=== PATIENT | female | born 1935 | race Caucasian/White ===

== ENCOUNTER → 2016-07-07 | Outpatient (REF) | payer MEDICARE ==
[~2016-07-07] MED LIST: ALEV220T26 PO; BACT800T5 PO; ELIQ2.5T PO; LEVO500T32 PO; METO25TAB PO; PANT40TA2 PO; PRIN5TAB PO
[2016-07-07 17:22] LABS: CREATININE FOR GFR 1.3 MG/DL (0.55-1.02); GLOMERULAR FILTRATION RATE 41.9 (>32); POTASSIUM SERUM 4.3 MEQ/L (3.5-5.1); URIC ACID 7.6 MG/DL (2.6-6.0)
== END ==
LOC: M LABDRAW1 15:40
PROVIDERS: ATTEND Family Medicine
DX: M25.562 Pain in left knee (principal)

== ENCOUNTER 2016-07-22 00:14 | Emergency (ER) | payer MEDICARE ==
[~2016-07-22] VITALS: Ht 157.5 cm; Wt 73.9 kg
[2016-07-22] MEDS ORDERED: AMLO2.5T PO (00:28)
[2016-07-22] MEDS ORDERED: METO50TA2 PO (00:28)
[2016-07-22] MEDS ORDERED: IRBE150T14 PO (00:28)
[2016-07-22] MEDS ORDERED: ALLO10TA PO (00:28)
--- NOTE | 2016-07-22 05:10 | REPUSA ---
CLINICAL HISTORY: Edema. COMMENTS: Real time sonography with duplex doppler of the left lower extremity was performed with attention to the major deep venous structures. Evaluation reveals the left common femoral, superficial femoral and popliteal veins to be completely compressible without intraluminal thrombus. There is normal spontaneous phasic flow and augmentation. The greater saphenous/common femoral vein junction is patent. IMPRESSION: No evidence of DVT in left lower extremity.. Thank you for your kind referral of this patient.
[2016-07-22 05:44] VITALS: BP 140/63
--- NOTE | 2016-07-22 07:58 | REP ---
Left knee two views: There are no comparisons. 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 There is an effusion in the suprapatellar pouch. There are calcifications in this effusion, likely calcified synovial chondromas. There is no fracture. No unusual calcifications otherwise. Impression: Advanced tricompartment osteoarthritis. Small joint effusion. Calcified synovial chondromas. Signed by Miky Ibarra MD 07/22/2016 07:50 A
== END 2016-07-22 05:46 | disposition home or self-care (01) ==
LOC: M ED 01:23
DX: M25.462 Effusion, left knee (principal); M17.12 Unilateral primary osteoarthritis, left knee; D16.9 Benign neoplasm of bone and articular cartilage, unspecified; I48.91 Unspecified atrial fibrillation; I10 Essential (primary) hypertension; M10.9 Gout, unspecified; Z88.5 Allergy status to narcotic agent; Z79.899 Other long term (current) drug therapy

== ENCOUNTER → 2016-08-19 | Outpatient (REF) | payer MEDICARE ==
[~2016-08-19] MED LIST changes: +ALLO10TA PO; +AMLO2.5T PO; +IRBE150T14 PO; +METO50TA2 PO
[2016-08-19 16:10] LABS: BASO % 0.2 % (0.0-1.0); EOS % 0.7 % (0.0-3.0); LARGE UNSTAINED CELL # 0.1 K/mm3 (0.0-0.4); LARGE UNSTAINED CELL % 1.3 % (0.0-4.0); LYMPH # 0.5 K/mm3 (1.5-4.5); LYMPH % 12.2 % (24.0-44.0); MEAN CORPUSCULAR HEMOGLOBIN 31.6 pg (27.0-33.0); MEAN CORPUSCULAR HGB CONC 33.9 g/dl (32.0-36.5); MEAN CORPUSCULAR VOLUME 93.4 fl (80.0-96.0); MONO # 0.4 K/mm3 (0.0-0.8); MONO % 11.3 % (0.0-5.0); NEUTROPHILS # 2.9 K/mm3 (1.8-7.7); NEUTROPHILS % 74.4 % (36.0-66.0); PLATELET COUNT, AUTOMATED 128 k/mm3 (150-450); RED CELL DISTRIBUTION WIDTH 13.9 % (11.5-14.5); WHITE BLOOD COUNT 3.8 K/mm3 (4.0-10.0)
[2016-08-19 16:36] LABS: ALBUMIN 3.4 GM/DL (3.2-5.2); ALBUMIN/GLOBULIN RATIO 1.06 (1.00-1.93); BILIRUBIN,TOTAL 0.5 MG/DL (0.2-1.0); CALCIUM LEVEL 8.9 MG/DL (8.8-10.2); CREATININE FOR GFR 1.51 MG/DL (0.55-1.02); GLOMERULAR FILTRATION RATE 35.2 (>32); POTASSIUM SERUM 4.3 MEQ/L (3.5-5.1); TOTAL PROTEIN 6.6 GM/DL (6.4-8.2)
== END ==
LOC: M LABDRAW1 15:40
PROVIDERS: ATTEND Family Medicine
DX: R10.84 Generalized abdominal pain (principal)

== ENCOUNTER → 2016-10-13 | Outpatient (REF) | payer MEDICARE ==
[~2016-10-13] MED LIST changes: +IRBE150T12 PO; +LEVO500T3 PO; -LEVO500T32 PO; -METO50TA2 PO; +METO50TA7 PO
[2016-10-13 18:10] LABS: ALBUMIN 3.6 GM/DL (3.2-5.2); ALBUMIN/GLOBULIN RATIO 1.33 (1.00-1.93); BILIRUBIN,TOTAL 0.6 MG/DL (0.2-1.0); CALCIUM LEVEL 8.8 MG/DL (8.8-10.2); CREATININE FOR GFR 0.99 MG/DL (0.55-1.02); GLOMERULAR FILTRATION RATE 57.3 (>32); POTASSIUM SERUM 4.2 MEQ/L (3.5-5.1); TOTAL PROTEIN 6.3 GM/DL (6.4-8.2)
[2016-10-13 18:13] LABS: INR 1.13
[2016-10-13 19:41] LABS: BASO % 0.3 % (0.0-1.0); EOS % 0.9 % (0.0-3.0); LARGE UNSTAINED CELL # 0.1 K/mm3 (0.0-0.4); LARGE UNSTAINED CELL % 2.3 % (0.0-4.0); LYMPH # 0.6 K/mm3 (1.5-4.5); MEAN CORPUSCULAR HEMOGLOBIN 31.3 pg (27.0-33.0); MEAN CORPUSCULAR HGB CONC 33.7 g/dl (32.0-36.5); MEAN CORPUSCULAR VOLUME 92.8 fl (80.0-96.0); MONO # 0.4 K/mm3 (0.0-0.8); MONO % 9.9 % (0.0-5.0); NEUTROPHILS # 2.8 K/mm3 (1.8-7.7); NEUTROPHILS % 72.7 % (36.0-66.0); PLATELET COUNT, AUTOMATED 119 k/mm3 (150-450); RED CELL DISTRIBUTION WIDTH 13.9 % (11.5-14.5); WHITE BLOOD COUNT 3.8 K/mm3 (4.0-10.0)
[2016-10-13 20:22] LABS: CALCIUM OXALATE CRYSTALS SMALL
== END ==
LOC: M LABDRAW1 16:30
PROVIDERS: ATTEND Family Medicine
DX: Z01.812 Encounter for preprocedural laboratory examination (principal); Z79.899 Other long term (current) drug therapy

== ENCOUNTER 2016-10-17 10:55 | Outpatient (RCR) | payer MEDICARE ==
[~2016-10-17 10:55] MED LIST changes: -IRBE150T12 PO
[2016-12-29] MEDS ORDERED: IRBE150T12 PO (14:02)
== END 2016-10-27 ==
LOC: M PT 10:55
PROVIDERS: ATTEND Orthopaedic Surgery
DX: Z01.818 Encounter for other preprocedural examination (principal); M17.12 Unilateral primary osteoarthritis, left knee
CPT/HCPCS: 97161; G8978; G8979; G8980

== ENCOUNTER → 2016-11-20 | Outpatient (REF) | payer MEDICARE ==
[~2016-11-20] MED LIST changes: +IRBE150T12 PO
[2016-11-20 12:38] LABS: CALCIUM LEVEL 8.9 MG/DL (8.8-10.2); CREATININE FOR GFR 1.56 MG/DL (0.55-1.02); GLOMERULAR FILTRATION RATE 33.8 (>32); POTASSIUM SERUM 4.6 MEQ/L (3.5-5.1)
== END ==
LOC: M LABDRAW1 11:46
PROVIDERS: ATTEND Internal Medicine Cardiovascular Disease
DX: N18.9 Chronic kidney disease, unspecified (principal)

== ENCOUNTER → 2016-11-27 | Outpatient (RCR) | payer MEDICARE | LOC: M PT 11-13 09:05 | PROVIDERS: ATTEND Physician Assistant | DX: Z51.89 Encounter for other specified aftercare (principal); Z96.659 Presence of unspecified artificial knee joint | CPT/HCPCS: 97110; 97140; 97161; G8978; G8979 ==

== ENCOUNTER → 2016-12-15 | Outpatient (REF) | payer MEDICARE | LOC: M LAB REF 09:39 | PROVIDERS: ATTEND Physician Assistant | DX: N39.0 Urinary tract infection, site not specified (principal) ==

== ENCOUNTER 2016-12-25 10:52 | Outpatient (RCR) | payer MEDICARE ==
[~2016-12-25 10:52] MED LIST changes: -IRBE150T12 PO
[2016-12-29] MEDS ORDERED: IRBE150T12 PO (14:02)
== END 2016-12-27 ==
LOC: M PT 10:52
PROVIDERS: ATTEND Physician Assistant
DX: Z51.89 Encounter for other specified aftercare (principal); Z96.652 Presence of left artificial knee joint
CPT/HCPCS: 97110; 97140; G8978

== ENCOUNTER 2017-01-08 13:00 | Day surgery (SDC) | payer MEDICARE ==
[~2017-01-08] VITALS: Ht 149.9 cm; Wt 69.9 kg
[~2017-01-08 13:00] MED LIST changes: +IRBE150T12 PO; +MIDAZOLAM INJ 2 MG/2 ML VIAL (J2250) As Ordered ONE; +OFLOXACIN 0.3 % (OCUFLOX) OPTH SOL 5ML OS ONE; +OFLOXACIN 0.3 % (OCUFLOX) OPTH SOL 5ML XX ONE; +PHENYLEPHRINE 2.5% OPHTH SOL 2ML OS ONE; +PHENYLEPHRINE 2.5% OPHTH SOL 2ML XX ONE; +PROPARACAINE 0.5% OPHTH SOL 15ML OS ONE; +PROPARACAINE 0.5% OPHTH SOL 15ML XX ONE; +TROPICAMIDE 1% OPHTH SOLN 2ML OS ONE; +TROPICAMIDE 1% OPHTH SOLN 2ML XX ONE; +fentaNYL 100 MCG/2 ML INJECTION (J3010) As Ordered ONE
[2017-01-08] MEDS ORDERED: LR 1,000 ML IV SCH (13:30)
[2017-01-08] MEDS ORDERED: ACETYLCHOLINE OPHTH SOLN 1% 2ML (MIOCHOL-E) As Ordered ONE (13:55)
[2017-01-08] MEDS ORDERED: BALANCED SALT IRRIGATION SOLUTION 500ML BAG (FOR OR EYE MACHINE) As Ordered ONE (13:55)
[2017-01-08] MEDS ORDERED: POVIDONE-IODINE 5% OPHTH PREP SOL 30ML As Ordered ONE (13:55)
[2017-01-08] MEDS ORDERED: CEFUROXIME 1MG/0.1ML INTRACAMERAL INJ As Ordered ONE (13:56)
[2017-01-08] MEDS ORDERED: DUOVISC (0.50ML VISCOAT/0.55ML PROVISC) OPHTH KIT As Ordered ONE (13:56)
[2017-01-08] MEDS ORDERED: LIDOCAINE 0.75%/EPINEPHRINE 0.025% IN BSS 1ML SYR INTRACAMERAL (OR ONLY) As Ordered ONE (13:56)
[2017-01-08 14:28] VITALS: BP 150/67
--- NOTE | 2017-01-09 08:30 | RO ---
DATE OF PROCEDURE: 01/08/2017 PREOPERATIVE DIAGNOSIS: Visually significant nuclear sclerotic cataract left eye. POSTOPERATIVE DIAGNOSIS: Visually significant nuclear sclerotic cataract left eye. PROCEDURE: Cataract extraction with use of phacoemulsification and placement of intraocular lens, implant AU00T0 21.5, left eye. SURGEON: True Doan DO PHOTOGRAPH INSPECTOR: ANESTHESIA: Local with monitored anesthesia care (MAC). COMPLICATIONS: None. POSTOPERATIVE CONDITION: Stable. INDICATION FOR SURGERY: Blurred vision left eye affecting patient's activities of daily living. DESCRIPTION OF PROCEDURE: The patient was seen in the preoperative area and properly identified. The correct operative eye was identified and marked. Attention was turned to that eye. The patient received topical antibiotics in the preoperative area. The patient then received topical dilating drops consisting of tropicamide and phenylephrine. The patient was then transferred to the operating room. The correct side was re-identified. The patient received topical anesthetics and antibiotics on the surface of the eye. The eye was prepped and draped in a sterile fashion. The upper and lower eyelids were isolated with Tegaderm tape, and the lids were held open with an adjustable speculum. Using a sideport blade, a paracentesis incision was made. Intraocular preservative-free lidocaine was then injected into the anterior chamber. Viscoelastic was then injected into the anterior chamber through the paracentesis. Using a 2.4 mm sharp-tipped keratome, the anterior chamber was entered via a temporal clear corneal incision. A continuous curvilinear capsulorrhexis was created with the aid of a 26-gauge cystotome and Utrata forceps. Hydrodissection was performed with balanced salt solution (BSS) on a blunt cannula until the nucleus was freely mobile. The crystalline lens was phacoemulsified and aspirated. Additional cohesive viscoelastic was placed into the capsular bag to deepen it. An AU00T0 21.5, lens was placed into the capsular bag and confirmed by visualizing the continuous curvilinear capsulorrhexis. Additional irrigation and aspiration was used to remove cortical material and remaining viscoelastic. The clear corneal incision was hydrated with BSS on a blunt cannula. The lens was well positioned. The incisions were then tested for leaks and found to be negative. The eye was then palpated for appropriate pressure and adjusted accordingly with BSS. The eyelid speculum was carefully removed. A shield was placed. The patient tolerated the procedure well and was discharged to the recovery unit in a stable condition. MTDD
== END 2017-01-08 15:24 | disposition home or self-care (01) ==
LOC: M SDC 13:00
PROVIDERS: ATTEND Ophthalmology
DX: H25.12 Age-related nuclear cataract, left eye (principal); I48.91 Unspecified atrial fibrillation; Z79.02 Long term (current) use of antithrombotics/antiplatelets; I10 Essential (primary) hypertension; Z79.899 Other long term (current) drug therapy
CPT/HCPCS: 66984; J2250; J3010; V2632

== ENCOUNTER 2017-01-22 14:08 | Day surgery (SDC) | payer MEDICARE ==
[~2017-01-22] VITALS: Ht 152.4 cm; Wt 68.9 kg
[~2017-01-22 14:08] MED LIST changes: -MIDAZOLAM INJ 2 MG/2 ML VIAL (J2250) As Ordered ONE; +OFLOXACIN 0.3 % (OCUFLOX) OPTH SOL 5ML OD ONE; -OFLOXACIN 0.3 % (OCUFLOX) OPTH SOL 5ML OS ONE; -OFLOXACIN 0.3 % (OCUFLOX) OPTH SOL 5ML XX ONE; +PHENYLEPHRINE 2.5% OPHTH SOL 2ML OD ONE; -PHENYLEPHRINE 2.5% OPHTH SOL 2ML OS ONE; -PHENYLEPHRINE 2.5% OPHTH SOL 2ML XX ONE; +PROPARACAINE 0.5% OPHTH SOL 15ML OD ONE; -PROPARACAINE 0.5% OPHTH SOL 15ML OS ONE; -PROPARACAINE 0.5% OPHTH SOL 15ML XX ONE; +TROPICAMIDE 1% OPHTH SOLN 2ML OD ONE; -TROPICAMIDE 1% OPHTH SOLN 2ML OS ONE; -TROPICAMIDE 1% OPHTH SOLN 2ML XX ONE; -fentaNYL 100 MCG/2 ML INJECTION (J3010) As Ordered ONE
[2017-01-22] MEDS ORDERED: LIDOCAINE 1% MDV 20ML VIAL SQ PRN (14:30)
[2017-01-22] MEDS ORDERED: POVIDONE-IODINE 5% OPHTH PREP SOL 30ML As Ordered ONE (15:13)
[2017-01-22] MEDS ORDERED: CEFUROXIME 1MG/0.1ML INTRACAMERAL INJ As Ordered ONE (15:13)
[2017-01-22] MEDS ORDERED: BALANCED SALT IRRIGATION SOLUTION 500ML BAG (FOR OR EYE MACHINE) As Ordered ONE (15:13)
[2017-01-22] MEDS ORDERED: ACETYLCHOLINE OPHTH SOLN 1% 2ML (MIOCHOL-E) As Ordered ONE (15:13)
[2017-01-22] MEDS ORDERED: LIDOCAINE 0.75%/EPINEPHRINE 0.025% IN BSS 1ML SYR INTRACAMERAL (OR ONLY) As Ordered ONE (15:15)
[2017-01-22] MEDS ORDERED: DUOVISC (0.50ML VISCOAT/0.55ML PROVISC) OPHTH KIT As Ordered ONE (15:15)
[2017-01-22] MEDS ORDERED: MIDAZOLAM INJ 2 MG/2 ML VIAL (J2250) As Ordered ONE (15:20)
[2017-01-22 16:55] VITALS: BP 156/87
--- NOTE | 2017-01-26 18:19 | RO ---
DATE OF PROCEDURE: 01/22/2017 PREOPERATIVE DIAGNOSIS: Visually significant nuclear sclerotic cataract right eye. POSTOPERATIVE DIAGNOSIS: Visually significant nuclear sclerotic cataract right eye. PROCEDURE: Cataract extraction with use of phacoemulsification and placement of intraocular lens, AU00T0, 21.0, right eye. SURGEON: True Doan DO SOCIAL SCIENCE PROFESSOR: ANESTHESIA: Local with monitored anesthesia care (MAC). COMPLICATIONS: None. POSTOPERATIVE CONDITION: Stable. INDICATION FOR SURGERY: Blurred vision right eye affecting patient's activities of daily living. DESCRIPTION OF PROCEDURE: The patient was seen in the preoperative area and properly identified. The correct operative eye was identified and marked. Attention was turned to that eye. The patient received topical antibiotics in the preoperative area. The patient then received topical dilating drops consisting of tropicamide and phenylephrine. The patient was then transferred to the operating room. The correct side was re-identified. The patient received topical anesthetics and antibiotics on the surface of the eye. The eye was prepped and draped in a sterile fashion. The upper and lower eyelids were isolated with Tegaderm tape, and the lids were held open with an adjustable speculum. Using a sideport blade, a paracentesis incision was made. Intraocular preservative-free lidocaine was then injected into the anterior chamber. Viscoelastic was then injected into the anterior chamber through the paracentesis. Using a 2.4 mm sharp-tipped keratome, the anterior chamber was entered via a temporal clear corneal incision. A continuous curvilinear capsulorrhexis was created with the aid of a 26-gauge cystotome and Utrata forceps. Hydrodissection was performed with balanced salt solution (BSS) on a blunt cannula until the nucleus was freely mobile. The crystalline lens was phacoemulsified and aspirated. Additional cohesive viscoelastic was placed into the capsular bag to deepen it. An AU00T0, 21.0 lens was placed into the capsular bag and confirmed by visualizing the continuous curvilinear capsulorrhexis. Additional irrigation and aspiration was used to remove cortical material and remaining viscoelastic. The clear corneal incision was hydrated with BSS on a blunt cannula. The lens was well positioned. The incisions were then tested for leaks and found to be negative. The eye was then palpated for appropriate pressure and adjusted accordingly with BSS. The eyelid speculum was carefully removed. A shield was placed. The patient tolerated the procedure well and was discharged to the recovery unit in a stable condition. MTDD
== END 2017-01-22 17:10 | disposition home or self-care (01) ==
LOC: M SDC 14:08
PROVIDERS: ATTEND Ophthalmology
DX: H25.11 Age-related nuclear cataract, right eye (principal); I48.91 Unspecified atrial fibrillation; R07.9 Chest pain, unspecified; I10 Essential (primary) hypertension; M12.9 Arthropathy, unspecified; E78.5 Hyperlipidemia, unspecified; Z88.5 Allergy status to narcotic agent; Z79.899 Other long term (current) drug therapy; Z79.01 Long term (current) use of anticoagulants; Z90.710 Acquired absence of both cervix and uterus; Z78.0 Asymptomatic menopausal state; Z96.652 Presence of left artificial knee joint
CPT/HCPCS: 66984; J2250; V2632

== ENCOUNTER 2017-01-26 11:45 | Outpatient (RCR) | payer MEDICARE ==
[~2017-01-26 11:45] MED LIST changes: -OFLOXACIN 0.3 % (OCUFLOX) OPTH SOL 5ML OD ONE; -PHENYLEPHRINE 2.5% OPHTH SOL 2ML OD ONE; -PROPARACAINE 0.5% OPHTH SOL 15ML OD ONE; -TROPICAMIDE 1% OPHTH SOLN 2ML OD ONE
== END 2017-01-27 ==
LOC: M PT 11:45
PROVIDERS: ATTEND Physician Assistant
DX: Z51.89 Encounter for other specified aftercare (principal); Z96.651 Presence of right artificial knee joint

== ENCOUNTER 2017-01-28 11:45 | Outpatient (RCR) | payer MEDICARE | END 2017-02-26 | LOC: M PT 11:45 | PROVIDERS: ATTEND Physician Assistant | DX: Z47.1 Aftercare following joint replacement surgery (principal); Z96.652 Presence of left artificial knee joint | CPT/HCPCS: 97110; G8979; G8980 ==

== ENCOUNTER 2017-08-28 11:57 | Inpatient (IN) | payer MEDICARE ==
[2017-08-28 13:07] LABS: BASO % 0.2 % (0.0-1.0); EOS % 0.5 % (0.0-3.0); HEMATOCRIT 33.9 % (36.0-47.0); HEMOGLOBIN 11.3 g/dl (12.0-15.5); IMMATURE GRANULOCYTE % 0.5 % (0-3.0); LYMPH # 0.5 10^3/uL (1.5-4.5); LYMPH % 12.7 % (24.0-44.0); MEAN CORPUSCULAR HEMOGLOBIN 30.1 pg (27.0-33.0); MEAN CORPUSCULAR HGB CONC 33.3 g/dl (32.0-36.5); MEAN CORPUSCULAR VOLUME 90.2 fl (80.0-96.0); MONO # 0.6 10^3/uL (0.0-0.8); MONO % 13.6 % (0.0-5.0); NEUTROPHILS # 3.1 10^3/uL (1.8-7.7); NEUTROPHILS % 72.5 % (36.0-66.0); RED BLOOD COUNT 3.76 10^6/uL (4.00-5.40); RED CELL DISTRIBUTION WIDTH 14.3 % (11.5-14.5); WHITE BLOOD COUNT 4.3 10^3/uL (4.0-10.0)
[2017-08-28 13:10] LABS: IMMATURE PLATELET FRACTION % 17.1 % (0.0-9.6); PLATELET COUNT, AUTOMATED 90 10^3/uL (150-450); PLATELET F 93
[2017-08-28 13:20] LABS: PROTHROMBIN TIME 15.4 SECONDS (12.4-14.5)
[2017-08-28 13:30] LABS: ALBUMIN 3.5 GM/DL (3.2-5.2); ALBUMIN/GLOBULIN RATIO 1.03 (1.00-1.93); ALKALINE PHOSPHATASE 122 U/L (45-117); ALT/SGPT 16 U/L (12-78); ANION GAP 6 MEQ/L (8-16); AST/SGOT 18 U/L (7-37); BILIRUBIN,DIRECT 0.1 MG/DL (0.0-0.2); BILIRUBIN,TOTAL 0.5 MG/DL (0.2-1.0); BLOOD UREA NITROGEN 20 MG/DL (7-18); CALCIUM LEVEL 8.9 MG/DL (8.8-10.2); CARBON DIOXIDE LEVEL 26 MEQ/L (21-32); CHLORIDE LEVEL 110 MEQ/L (98-107); CPK CREATINE PHOSPHOKINASE 39 U/L (26-192); CREATININE FOR GFR 1.03 MG/DL (0.55-1.30); GLOMERULAR FILTRATION RATE 54.6 (>32); GLUCOSE, FASTING 96 MG/DL (70-100); POTASSIUM SERUM 4.8 MEQ/L (3.5-5.1); SODIUM LEVEL 142 MEQ/L (136-145); TOTAL PROTEIN 6.9 GM/DL (6.4-8.2); TROPONIN I < 0.02 NG/ML (< 0.10)
[2017-08-28 13:35] LABS: CK-MB VALUE MASS < 1.0 NG/ML (<3.6); MB/CK RELATIVE INDEX 2.56 (< OR =4); NT-PRO BNP 1820 PG/ML (<450)
[2017-08-28] MEDS: FUROSEMIDE 20 MG/2 ML VIAL (J1940) IV ×2 (13:53→17:54)
[2017-08-28] MEDS ORDERED: ACETAMINOPHEN TAB 650MG DOSE (2X325MG) PO (14:00)
[2017-08-28] MEDS: METOPROLOL TART 25 MG TABLET PO ×2 (14:00→20:31)
[2017-08-28] MEDS ORDERED: ONDANSETRON 4MG/2ML VIAL (J2405) IV (14:00)
[2017-08-28 18:30] LABS: CPK CREATINE PHOSPHOKINASE 38 U/L (26-192); TROPONIN I < 0.02 NG/ML (< 0.10)
[2017-08-28 18:31] LABS: CK-MB VALUE MASS 1.3 NG/ML (<3.6); MB/CK RELATIVE INDEX 3.42 (< OR =4)
[2017-08-28] MEDS: amLODIPine 5 MG TAB PO (20:31)
[2017-08-28] MEDS: APIXABAN 2.5 MG TAB (ELIQUIS) PO (20:31)
[2017-08-28] MEDS ORDERED: PILL CRUSHER/CUTTER 1 EACH XX (20:45)
[2017-08-29 01:09] LABS: CK-MB VALUE MASS 1.4 NG/ML (<3.6); CPK CREATINE PHOSPHOKINASE 53 U/L (26-192); MB/CK RELATIVE INDEX 2.64 (< OR =4); TROPONIN I < 0.02 NG/ML (< 0.10)
[2017-08-29] MEDS: METOPROLOL TART 25 MG TABLET PO ×3 (02:09→14:00)
[2017-08-29] MEDS: FUROSEMIDE 20 MG/2 ML VIAL (J1940) IV ×2 (02:10→10:05)
[2017-08-29 05:24] LABS: BASO % 0.3 % (0.0-1.0); EOS % 1.1 % (0.0-3.0); HEMATOCRIT 34.9 % (36.0-47.0); HEMOGLOBIN 11.6 g/dl (12.0-15.5); IMMATURE GRANULOCYTE % 0.6 % (0-3.0); LYMPH # 0.6 10^3/uL (1.5-4.5); LYMPH % 15.7 % (24.0-44.0); MEAN CORPUSCULAR HEMOGLOBIN 29.7 pg (27.0-33.0); MEAN CORPUSCULAR HGB CONC 33.2 g/dl (32.0-36.5); MEAN CORPUSCULAR VOLUME 89.5 fl (80.0-96.0); MONO # 0.5 10^3/uL (0.0-0.8); MONO % 15.1 % (0.0-5.0); NEUTROPHILS # 2.4 10^3/uL (1.8-7.7); NEUTROPHILS % 67.2 % (36.0-66.0); PLATELET COUNT, AUTOMATED 96 10^3/uL (150-450); RED CELL DISTRIBUTION WIDTH 14.4 % (11.5-14.5); WHITE BLOOD COUNT 3.5 10^3/uL (4.0-10.0)
[2017-08-29 05:41] LABS: ANION GAP 4 MEQ/L (8-16); BLOOD UREA NITROGEN 20 MG/DL (7-18); CALCIUM LEVEL 9.3 MG/DL (8.8-10.2); CARBON DIOXIDE LEVEL 32 MEQ/L (21-32); CHLORIDE LEVEL 105 MEQ/L (98-107); CK-MB VALUE MASS 1.9 NG/ML (<3.6); CPK CREATINE PHOSPHOKINASE 74 U/L (26-192); CREATININE FOR GFR 1.19 MG/DL (0.55-1.30); GLOMERULAR FILTRATION RATE 46.2 (>32); GLUCOSE, FASTING 96 MG/DL (70-100); MB/CK RELATIVE INDEX 2.56 (< OR =4); POTASSIUM SERUM 3.7 MEQ/L (3.5-5.1); SODIUM LEVEL 141 MEQ/L (136-145); TROPONIN I < 0.02 NG/ML (< 0.10)
[2017-08-29] MEDS: APIXABAN 2.5 MG TAB (ELIQUIS) PO (08:13)
[2017-08-29] MEDS: amLODIPine 5 MG TAB PO (08:14)
[2017-08-29] MEDS: ALLOPURINOL 100 MG TAB PO (08:15)
[2017-08-29 08:36] LABS: NT-PRO BNP 1995 PG/ML (<450)
== END 2017-08-29 14:30 | disposition home or self-care (01) | DRG 293 ==
LOC: M ED 11:57 → M ED INP 13:54 → M PCU 16:11
DX: I11.0 Hypertensive heart disease with heart failure (principal); I50.9 Heart failure, unspecified; Z66 Do not resuscitate; I48.91 Unspecified atrial fibrillation; M10.9 Gout, unspecified; D69.6 Thrombocytopenia, unspecified; E02 Subclinical iodine-deficiency hypothyroidism; D64.9 Anemia, unspecified; Z96.652 Presence of left artificial knee joint; Z79.899 Other long term (current) drug therapy; Z79.01 Long term (current) use of anticoagulants

== ENCOUNTER → 2017-10-29 | Outpatient (REF) | payer MEDICARE ==
[2017-10-29 17:31] LABS: FREE T4 1.11 NG/DL (0.76-1.46)
== END ==
LOC: M LABDRAW1 15:52
DX: E03.9 Hypothyroidism, unspecified (principal)
CPT/HCPCS: 84443

== ENCOUNTER → 2017-12-25 | Outpatient (REF) | payer MEDICARE ==
[2017-12-25 13:37] LABS: FREE T3 2.5 PG/ML (2.2-4.0); FREE T4 1.23 NG/DL (0.76-1.46)
== END ==
LOC: M LABDRAW1 10:43
DX: E03.9 Hypothyroidism, unspecified (principal)
CPT/HCPCS: 84443

== ENCOUNTER 2018-01-19 21:23 | Emergency (ER) | payer MEDICARE ==
[2018-01-19 21:59] LABS: EOS % 0.3 % (0.0-3.0); HEMATOCRIT 33.6 % (36.0-47.0); IMMATURE GRANULOCYTE % 0.3 % (0-3.0); LYMPH # 0.5 10^3/uL (1.5-4.5); LYMPH % 7.7 % (24.0-44.0); MEAN CORPUSCULAR HGB CONC 32.7 g/dl (32.0-36.5); MEAN CORPUSCULAR VOLUME 94.6 fl (80.0-96.0); MONO # 0.6 10^3/uL (0.0-0.8); MONO % 9.2 % (0.0-5.0); NEUTROPHILS # 4.9 10^3/uL (1.8-7.7); NEUTROPHILS % 82.5 % (36.0-66.0); RED BLOOD COUNT 3.55 10^6/uL (4.00-5.40); RED CELL DISTRIBUTION WIDTH 14.2 % (11.5-14.5)
[2018-01-19 22:15] LABS: IMMATURE PLATELET FRACTION % 16.7 % (0.0-9.6); PLATELET COUNT, AUTOMATED 91 10^3/uL (150-450)
[2018-01-19 22:27] LABS: ANION GAP 8 MEQ/L (8-16); BLOOD UREA NITROGEN 18 MG/DL (7-18); CALCIUM LEVEL 8.1 MG/DL (8.8-10.2); CARBON DIOXIDE LEVEL 26 MEQ/L (21-32); CHLORIDE LEVEL 110 MEQ/L (98-107); CPK CREATINE PHOSPHOKINASE 33 U/L (26-192); CREATININE FOR GFR 1.08 MG/DL (0.55-1.30); GLOMERULAR FILTRATION RATE 51.6 (>32); GLUCOSE, FASTING 134 MG/DL (70-100); MB/CK RELATIVE INDEX 3.33 (< OR =4); POTASSIUM SERUM 4.2 MEQ/L (3.5-5.1); SODIUM LEVEL 144 MEQ/L (136-145); TROPONIN I < 0.02 NG/ML (< 0.10)
[2018-01-19] MEDS: PANTOPRAZOLE 40MG INJ (PROTONIX) (C9113) IV (22:40)
[2018-01-19 23:00] LABS: ALBUMIN 3.2 GM/DL (3.2-5.2); ALBUMIN/GLOBULIN RATIO 1.14 (1.00-1.93); ALKALINE PHOSPHATASE 151 U/L (45-117); ALT/SGPT 31 U/L (12-78); AST/SGOT 36 U/L (7-37); BILIRUBIN,DIRECT 0.2 MG/DL (0.0-0.2); BILIRUBIN,TOTAL 0.5 MG/DL (0.2-1.0); LIPASE 123 U/L (73-393)
[2018-01-19] MEDS ORDERED: ISOVUE-370 76% 100ML VIAL (Q9967) As Ordered (23:08)
[2018-01-20 00:22] LABS: ABG BASE EXCESS -3.2 (-2.0-2.0); ABG HCO3 20.9 MEQ/L (22.0-26.0); ABG PARTIAL PRESSURE CO2 34.4 mmHg (35.0-45.0); ABG PARTIAL PRESSURE O2 64.5 mmHg (75.0-100.0); ABG STANDARD HCO3 21.7 MEQ/L (22.0-26.0); ABG TOTAL CO2 21.9 MEQ/L (23.0-31.0); ABG pH (ARTERIAL) 7.401 UNITS (7.350-7.450)
[2018-01-20 00:59] LABS: CK-MB VALUE MASS < 1.0 NG/ML (<3.6); CPK CREATINE PHOSPHOKINASE 32 U/L (26-192); MB/CK RELATIVE INDEX 3.12 (< OR =4); TROPONIN I < 0.02 NG/ML (< 0.10)
[2018-01-20 01:06] LABS: LACTIC ACID SEPSIS PROTOCOL 0.7 MMOL/L (0.4-2.0)
[2018-01-20 02:18] LABS: NT-PRO BNP 3241 PG/ML (<450)
[2018-01-20] MEDS: FUROSEMIDE 40 MG/4 ML VIAL (J1940) IV (02:58)
== END 2018-01-20 05:12 | disposition home or self-care (01) ==
LOC: M ED 01-20 05:12
DX: R07.9 Chest pain, unspecified (principal); I11.0 Hypertensive heart disease with heart failure; I50.9 Heart failure, unspecified; I48.91 Unspecified atrial fibrillation
CPT/HCPCS: C9113

== ENCOUNTER → 2018-03-02 | Outpatient (REF) | payer MEDICARE ==
[2018-03-02 16:25] LABS: FREE T3 1.9 PG/ML (2.2-4.0); FREE T4 1.44 NG/DL (0.76-1.46)
== END ==
LOC: M LABDRAW1 13:02
DX: E03.9 Hypothyroidism, unspecified (principal)
CPT/HCPCS: 84443

== ENCOUNTER 2018-09-18 16:50 | Emergency (ER) | payer MEDICARE ==
[~2018-09-18] VITALS: Ht 149.9 cm; Wt 68.2 kg
[~2018-09-18 16:50] MED LIST changes: -AMLO2.5T PO; +AMLO2.5T3 PO; +AMLO5TAB6 PO; +LASI20TA3 PO; +METO1TAB63 PO; -METO25TAB PO; +METO75TA PO; -PANT40TA2 PO; +PANT40TA3 PO; +PROT1TAB2 PO
[2018-09-18] MEDS ORDERED: ASPIRIN 81 MG CHEW TABLET PO ONE (17:15)
[2018-09-18] MEDS: NITROGLYCERIN 0.4 MG SUBL TABLET SL PRN ×3 (17:30→18:04)
[2018-09-18 18:00] LABS: BASO % 0.1 % (0.0-1.0); EOS % 0.3 % (0.0-3.0); HEMATOCRIT 36.8 % (36.0-47.0); HEMOGLOBIN 11.8 g/dl (12.0-15.5); LYMPH # 0.5 10^3/uL (1.5-4.5); LYMPH % 7.5 % (24.0-44.0); MEAN CORPUSCULAR HEMOGLOBIN 30.6 pg (27.0-33.0); MEAN CORPUSCULAR HGB CONC 32.1 g/dl (32.0-36.5); MEAN CORPUSCULAR VOLUME 95.3 fl (80.0-96.0); MONO # 0.6 10^3/uL (0.0-0.8); MONO % 9.4 % (0.0-5.0); NEUTROPHILS # 5.5 10^3/uL (1.8-7.7); NEUTROPHILS % 82.3 % (36.0-66.0); RED BLOOD COUNT 3.86 10^6/uL (4.00-5.40); WHITE BLOOD COUNT 6.7 10^3/uL (4.0-10.0)
[2018-09-18 18:02] LABS: PLATELET COUNT, AUTOMATED 89 10^3/uL (150-450)
[2018-09-18 18:04] VITALS: BP 153/86
[2018-09-18 18:11] LABS: INR 1.23; PROTHROMBIN TIME 15.2 SECONDS (11.8-14.0)
[2018-09-18 18:12] LABS: PARTIAL THROMBOPLASTIN TIME 40.5 SECONDS (25.0-38.4)
[2018-09-18] MEDS ORDERED: FLEC25TA (18:18)
[2018-09-18] MEDS ORDERED: LEVO50TA5 (18:18)
[2018-09-18 18:29] LABS: ALBUMIN 3.5 GM/DL (3.2-5.2); BILIRUBIN,DIRECT 0.2 MG/DL (0.0-0.2); BILIRUBIN,TOTAL 0.7 MG/DL (0.2-1.0); CALCIUM LEVEL 8.8 MG/DL (8.8-10.2); CK-MB VALUE MASS 1.1 NG/ML (<3.6); CREATININE FOR GFR 1.12 MG/DL (0.55-1.30); FREE T4 1.72 NG/DL (0.76-1.46); GLOMERULAR FILTRATION RATE 49.5 (>32); MB/CK RELATIVE INDEX 2.44 (< OR =4); POTASSIUM SERUM 4.1 MEQ/L (3.5-5.1); THYROID STIMULATING HORMONE 1.81 uIU/ML (0.358-3.740); TOTAL PROTEIN 6.9 GM/DL (6.4-8.2); TROPONIN I 0.02 NG/ML (< 0.10)
[2018-09-18] MEDS ORDERED: ISOVUE-370 76% 100ML VIAL (Q9967) As Ordered ONE (19:06)
--- NOTE | 2018-09-18 21:46 | REPVR ---
EXAM: CT Angiography Chest With Contrast EXAM DATE/TIME: 09/18/2018 7:24 PM CLINICAL HISTORY: 82 years old, female; Chest pain; Type not specified TECHNIQUE: Imaging protocol: Axial computed tomographic angiography images of the chest with intravenous contrast using CT angiography protocol. Coronal and sagittal reformatted images were created and reviewed. 3D rendering: MIP reconstructed images were created and reviewed. Radiation optimization: All CT scans at this facility use at least one of these dose optimization techniques: automated exposure control; mA and/or kV adjustment per patient size (includes targeted exams where dose is matched to clinical indication); or iterative reconstruction. Contrast material: ISOVUE 370; Contrast volume: 75 ml; Contrast route: IV; COMPARISON: CT ANGIO CHEST 01/19/2018 11:08 PM FINDINGS: Mediastinum: There is a small sliding hiatal hernia Pulmonary arteries: Normal. No pulmonary emboli. Aorta: Aortic annulus and valvular calcification is present. The ascending thoracic aorta measures 4.5 cm in maximum diameter. Lungs: Patchy subpleural atelectasis noted in the dependent portion of the right lower lobe. Coarse linear opacities in the left lower lobe suggests scarring or discoid atelectasis. [place] in the left upper lobe. Pleural space: Unremarkable. No pneumothorax. No pleural effusion. Heart: There is moderate cardiomegaly. Mitral annulus calcification is present. There is reflux of contrast into the inferior vena cava. RV LV ratio is less than 1. Liver: Calcified hepatic granulomas. Spleen: Multiple cyst calcified splenic granulomas. Lymph nodes: Calcified left hilar lymph nodes noted. Bones/joints: Degenerative changes of the dorsal spine. Mild pectus carinatum sternal configuration. Soft tissues: Unremarkable. IMPRESSION: 1. No acute pulmonary embolus. 2. Aneurysmal dilatation of the ascending thoracic aorta with maximum diameter 4.5 cm. No change from previous. 3. Hypoventilatory change in the dependent portion of the right lung base. Discoid atelectasis or scarring at the left lung base. 4. Small sliding hiatal hernia Electronically signed by: Jannie Hernandez On 09/18/2018 21:46:39 PM
[2018-09-18 23:32] LABS: CK-MB VALUE MASS < 1.0 NG/ML (<3.6); CPK CREATINE PHOSPHOKINASE 36 U/L (26-192); MB/CK RELATIVE INDEX 2.78 (< OR =4); TROPONIN I 0.02 NG/ML (< 0.10)
[2018-09-19 00:13] VITALS: BP 151/67
--- NOTE | 2018-09-19 07:00 | ECGEPIP ---
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
--- NOTE | 2018-09-19 07:05 | ECGEPIP ---
[place] - ED Test Date: 2018-09-18 Pat Name: ALEJANDRO MORE Department: Room: - Gender: Female Bow Maker Custom: maiklo : 1935 Requested By: FRANCESCA Zhou Order Number: [id number] Reading MD: Barrett Kay Measurements Intervals [place] Rate: 76 P: [place]: -1 QRS: QRSD: 102 T: 7 QT: 374 QTc: 423 Interpretive Statements ATRIAL FIBRILLATION LEFT AXIS DEVIATION VOLTAGE CRITERIA FOR LVH POOR R WAVE PROGRESSION SIMILAR TO PRIOR ON SAME DATE Electronically Signed on 09-19-2018 7:05:19 EDT by Barrett Kay
--- NOTE | 2018-09-19 08:53 | REP ---
PA and lateral chest, 06:00 p.m. : Comparison is 08/28/2017. There is chronic cardiomegaly, unchanged. There are no infiltrates. The costophrenic angles are mildly effaced, pleural thickening versus small pleural effusions. There is a focal mass-like thickening of the pleura in the right costophrenic angle measuring 3.6 cm craniocaudad by 0.9 cm in depth. In retrospect, it is also identified on the chest CT of 09/18/2018 at 07:20 p.m.. This may represent a pleural mass. The frankie, mediastinum, skeletal structures are unremarkable. Impression: Possible pleural mass in the right costophrenic angle as described. Chronic cardiomegaly. Electronically Signed by Miky Ibarra MD 09/19/2018 08:44 A
--- NOTE | 2018-09-20 13:04 | ED PDOC ---
Post-Departure Follow-Up dr smith faxed cxr for fu Maria Antonia Mccurdy MD Sep 20, 2018 13:04
--- NOTE | 2018-09-20 13:05 | ED PDOC ---
Post-Departure Follow-Up dr smith faxed formal repotof cta for fu Maria Antonia Mccurdy MD Sep 20, 2018 13:05
--- NOTE | 2018-09-20 13:10 | ED PDOC ---
Post-Departure Follow-Up dr smith faxed formal report of cta chest for fu Maria Antonia Mccurdy MD Sep 20, 2018 13:10
== END 2018-09-19 00:42 | disposition home or self-care (01) ==
LOC: M ED 16:50
DX: I48.91 Unspecified atrial fibrillation (principal); R07.89 Other chest pain; R06.02 Shortness of breath; I11.0 Hypertensive heart disease with heart failure; I50.9 Heart failure, unspecified; M10.9 Gout, unspecified; Z79.01 Long term (current) use of anticoagulants
CPT/HCPCS: 36415; 71046; 71275; 80048; 80076; 82550; 82553; 83690; 84439; 84443; 84484; 85025; 85049; 85055; 85610; 85730; 93005; 93041; 94760; 99285; Q9967

== ENCOUNTER → 2018-12-30 | Outpatient (REF) | payer MEDICARE ==
[~2018-12-30] MED LIST changes: +FLEC25TA; +LEVO50TA5
[2018-12-30 18:07] LABS: FREE T3 2.2 PG/ML (2.2-4.0); FREE T4 1.31 NG/DL (0.76-1.46); THYROID STIMULATING HORMONE 9.52 uIU/ML (0.358-3.740)
== END ==
LOC: M LABDRAW1 16:54
PROVIDERS: ATTEND Family Medicine
DX: E03.9 Hypothyroidism, unspecified (principal)

== ENCOUNTER 2019-02-25 21:59 | Inpatient (IN) | payer MEDICARE ==
[~2019-02-25] VITALS: Ht 149.9 cm; Wt 69.3 kg
[~2019-02-25 21:59] MED LIST changes: -FLEC25TA; +FLEC25TA PO; -LEVO50TA5; +LEVO50TA5 PO
[2019-02-25] MEDS ORDERED: ACETAMINOPHEN 500 MG TAB PO ONE (22:30)
[2019-02-25 22:32] LABS: VENOUS BASE EXCESS 0.8 (-2.0-2.0); VENOUS HCO3 25.5 MEQ/L (23.0-27.0); VENOUS O2 SATURATION 95.9 % (60.0-80.0); VENOUS PARTIAL PRESSURE O2 81.3 mmHg (30.0-50.0); VENOUS PH 7.411 UNITS (7.330-7.430); VENOUS STANDARD HCO3 25.1 MEQ/L; VENOUS TOTAL CO2 26.7 MEQ/L (24.0-28.0)
[2019-02-25 22:37] LABS: BASO % 0.2 % (0.0-1.0); EOS % 0.1 % (0.0-3.0); HEMATOCRIT 37.1 % (36.0-47.0); HEMOGLOBIN 12.1 g/dl (12.0-15.5); LYMPH # 0.5 10^3/uL (1.5-5.0); LYMPH % 3.5 % (24.0-44.0); MEAN CORPUSCULAR HEMOGLOBIN 30.7 pg (27.0-33.0); MEAN CORPUSCULAR HGB CONC 32.6 g/dl (32.0-36.5); MEAN CORPUSCULAR VOLUME 94.2 fl (80.0-96.0); MONO # 1.5 10^3/uL (0.0-0.8); MONO % 11.7 % (0.0-5.0); NEUTROPHILS # 10.7 10^3/uL (1.5-8.5); PLATELET COUNT, AUTOMATED 111 10^3/uL (150-450); RED BLOOD COUNT 3.94 10^6/uL (4.00-5.40); WHITE BLOOD COUNT 12.8 10^3/uL (4.0-10.0)
[2019-02-25 23:05] LABS: BLOOD UREA NITROGEN 19 MG/DL (7-18); CALCIUM LEVEL 8.4 MG/DL (8.8-10.2); CARBON DIOXIDE LEVEL 25 MEQ/L (21-32); CHLORIDE LEVEL 106 MEQ/L (98-107); CK-MB VALUE MASS < 1.0 NG/ML (<3.6); CPK CREATINE PHOSPHOKINASE 27 U/L (26-192); CREATININE FOR GFR 1.13 MG/DL (0.55-1.30); FREE THYROXINE INDEX 3.2 % (1.3-4.8); GLOMERULAR FILTRATION RATE 48.8 (>32); GLUCOSE, FASTING 138 MG/DL (70-100); NT-PRO BNP 4281 PG/ML (<450); POTASSIUM SERUM 4.6 MEQ/L (3.5-5.1); SODIUM LEVEL 139 MEQ/L (136-145); T UPTAKE 32 % (30-39); THYROXINE (T4) 9.9 UG/DL (4.5-12.0); TROPONIN I < 0.02 NG/ML (< 0.10)
[2019-02-25] MEDS ORDERED: FUROSEMIDE 100 MG/10 ML VIAL (J1940) IV ONE (23:45)
[2019-02-26 01:30] LABS: INFLUENZA A AMPLIFICATION NEGATIVE (NEGATIVE); INFLUENZA B AMPLIFICATION NEGATIVE (NEGATIVE)
[2019-02-26] MEDS ORDERED: PANT-23 PO (01:31)
[2019-02-26] MEDS ORDERED: FURO20TA2 PO (01:31)
[2019-02-26] MEDS ORDERED: METO100T5 PO (01:31)
[2019-02-26] MEDS ORDERED: MOM 30ML SUSPENSION UDC PO PRN (02:15)
[2019-02-26] MEDS ORDERED: METAL LOCK LOOP XX ONE (02:44)
[2019-02-26] MEDS ORDERED: ONDANSETRON 4MG/2ML VIAL (J2405) IV PRN (03:30)
--- NOTE | 2019-02-26 03:59 | HPEPDOC ---
General Date of Admission Feb 26, 2019 at 03:21 Date of Service: Feb 26, 2019 Primary Care Physician: MODESTA BRANDON MD [facility] Other Providers Cardio: Dr. Bird Attending Physician: FRANKY TEJADA MD Chief Complaint The patient is a 83-year-old female admitted with a reason for visit of CHF. History of Present Illness 83-year-old female with paroxysmal A. fib chronically on Eliquis, CHF, hypothyroidism presents for acute onset of left upper chest pain that began while sitting earlier today. No inciting factors or recent injuries. Describes the pain as sharp with associated chest tightness and pressure "like throwing bricks," going up as far as the left shoulder, however not down the arm or to the back or other side of chest. Pain was constant, relieved by nitroglycerin in EMS. Denies prior cardiac history or intervention, no hx of thrombus. She reports having similar episodes in the past whenever she goes into A. fib. No associated shortness of breath, lightheadedness, dizziness, cough, PND, orthopnea, edema. No recent fever, chills, travel, missed medications, sick contacts or illnesses. In EMS, she was also given full dose aspirin, and in the ER, was noted to have an oral temperature of 101 and BNP of 4000+. Negative for the flu. EKG in A. fib with rate controlled and 70s. She is given 100 milligrams IV Lasix and Tylenol in the ER, however has not urinated since lasix given 2 hours ago. Upon admission, she reports all of her symptoms have resolved and she feels back to her normal self. Home Medications Scheduled Allopurinol (Allopurinol) 100 Mg Tab, 100 MG PO DAILY, (Reported) Apixaban (Eliquis) 2.5 Mg Tab, 2.5 MG PO BID, (Reported) Cefuroxime Axetil (Cefuroxime) 500 Mg Tablet, 500 MG PO BID Doxycycline Monohydrate (Doxycycline) 100 Mg Capsule, 100 MG PO BID Escitalopram Oxalate (Lexapro) 5 Mg Tablet, 5 MG PO DAILY Flecainide Acetate (Flecainide Acetate) 50 Mg Tablet, 50 MG PO BID, (Reported) Furosemide (Furosemide) 20 Mg Tablet, 20 MG PO DAILY, (Reported) Levothyroxine Sodium (Levothyroxine Sodium) 50 Mcg Tablet, 50 MCG PO DAILY, (Reported) Metoprolol Tartrate (Metoprolol Tartrate) 100 Mg Tablet, 100 MG PO BID, (Reported) Pantoprazole Sodium (Pantoprazole Sodium) 40 Mg Tablet.dr, 40 MG PO DAILY, (Reported) Allergies Coded Allergies: codeine (Verified Adverse Reaction, Mild, UPSET STOMACH, 02/25/19) tramadol (Verified Adverse Reaction, Unknown, HEADACHE, 02/25/19) Past Medical History Medical History Paroxysmal A. fib Gout CHF Hypothyroidism GERD Surgical History Left knee repair 4 children Appendectomy Family History Noncontributory discussed with the patient Social History Denies ever smoking, alcohol use, or illicit substances Lives alone at home and fully independent baseline Retired in her 70s. 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 Admits chest pain & pressure resolved GI: Denies nausea, vomiting, abdominal pain, diarrhea, constipation, melena, hematochezia : Denies hematuria or retention MSK: Denies new pains or weakness Neurologic: Denies new numbness/tingling Physical Examination Other physical findings General exam: A&O 3, NAD, resting comfortably, speaking full sentences HEENT: NCAT, EOMI, anicteric sclera, dry mucous membranes, minimal JVD, wears dentures Cardiac: rate controlled in Afib in 70s, normal S1 & S2, 3/6 systolic murmur heard best right sternal border with radiation to carotids Respiratory: good air exchange, no accessory muscle use. No wheezing or rhonchi. Has bibasilar crackles without egophany Abdomen: soft, NT, ND, normoactive bowel sounds Extremity: 2+ radial and dorsalis pedis pulses, trace edema, no calf tenderness Skin: [place], warm, dry, no visible rash Msk: strength 5/5 x4, normal tone Neuro: normal speech, no focal deficits Psych: Normal mood and affect Vital Signs Vital Signs Date Time Temp Pulse Resp B/P (MAP) Pulse Ox O2 Delivery O2 Flow Rate FiO2 02/26/19 02:15 86 129/61 (83) 98 02/25/19 23:34 99.4 02/25/19 22:02 20 Room Air Laboratory Data Labs 24H Laboratory Tests 2 02/25/19 22:22: Immature Granulocyte % (Auto) 0.5, Neutrophils (%) (Auto) 84.0H, Lymphocytes (%) (Auto) 3.5L, Monocytes (%) (Auto) 11.7H, Eosinophils (%) (Auto) 0.1, Basophils (%) (Auto) 0.2, Neutrophils # (Auto) 10.7H, Lymphocytes # (Auto) 0.5L, Monocytes # (Auto) 1.5H, Eosinophils # (Auto) 0.0, Basophils # (Auto) 0.0, Nucleated Red Blood Cells % (auto) 0.0, Anion Gap 8, Glomerular Filtration Rate 48.8, Lactic Acid Level 1.0, Calcium Level 8.4L, Total Creatine Kinase 27, Creatine Kinase MB < 1.0, Creatine Kinase MB Relative Index 3.70, Troponin I < 0.02, UV-Ftt-Q-Type Natriuretic Peptide 4281H, Thyroid Stimulating Hormone (TSH) 5.660H, Free Thyroxine Index 3.2, Thyroxine (T4) 9.9, Triiodothyronine (T3) Uptake 32 02/25/19 22:23: Blood Gas Bicarbonate Standard 25.1, Venous Blood pH 7.411, Venous Blood Partial Pressure CO2 41.0, Venous Blood Partial Pressure O2 81.3H, Venous Blood Total Carbon Dioxide 26.7, Venous Blood HCO3 25.5, Venous Blood Oxygen Saturation 95.9H, Venous Blood Base Excess 0.8 02/26/19 00:54: Influenza Type A (RT-PCR) NEGATIVE, Influenza Type B (RT-PCR) NEGATIVE CBC/BMP Laboratory Tests 02/25/19 22:22 Microbiology Microbiology 02/25/19 Blood Culture, Received Pending Assessment/Plan 83-year-old female with paroxysmal A. fib chronically on Eliquis, CHF, hypothyroidism, gout presenting for left upper chest and shoulder pain that began suddenly, similar to her prior episodes of when she goes into A. fib admission EKG and cardiac markers negative. Chest x-ray with increased pulmonary vasculature and BNP 4000+. Decompensated CHF BNP 4000+, increased pulm vasculature on imaging, rales & JVD hold home lasix and start IV diuresis with monitoring of bp & renal fxn last echo 2014: nml systolic & diastolic dysfxn. Normally follows Dr. Bird New echo ordered. Strict I/O, daily wts Urinary retention pt received 100mg IV Lasix in ER, has not voided in 2+ hrs denies any prior hx of tract or any retention in past abd soft on exam, no distension or tenderness bladder scan ordered-pending. Avoid meds that may cause retention Chest pain resolved with Nitro via EMS cardiac markers neg & EKG without ST elevation or depression pt reports she has similar episodes "whenever I start AFib" likely related to her palpitations and arrythmia monitor on tele & trend card gonzalez Fever 101 in ER, taken orally pt denies recent illness, f/c. No pulm or GI or MSK complaints flu negative. Blood cultures ordered lactic acid negative, and temp decreased on recheck no signs of infection. Monitor and hold abx at this point Paroxysmal AFib rate controlled. Continue home cardiac meds & Eliquis likely contributing to pt's initial symptoms Gout stable, continue allopurinol GERD continue home ppi DVT ppx: chronically Eliquis DISPO: admit to hospital, will sign out to FM in am. Plan / VTE VTE Prophylaxis Ordered?: Yes GME ATTESTATION GME ATTESTATION My faculty preceptor for this patient encounter was physically present during the encounter and was fully available. All aspects of the patient interview, examination, medical decision making process, and medical care plan development were reviewed and approved by the faculty preceptor. The faculty preceptor is aware and concurs with the plan as stated in the body of this note and will attest to such by his/her cosignature. ATTENDING NOTE I have personally evaluated and examined the patient. I have reviewed the history and physical as documented by the the resident and discussed with the resident regarding plan of care and agree with the above assessment and plan. MAGNO CHRIS DO Feb 26, 2019 03:59 FRANKY TEJADA MD Feb 26, 2019 22:20
[2019-02-26 05:13] LABS: APPEARANCE, URINE CLEAR (CLEAR); BACTERIA, URINE AUTO NEGATIVE (NEGATIVE); BILIRUBIN, URINE AUTO NEGATIVE (NEGATIVE); BLOOD, URINE BLOOD 1+ (NEGATIVE); COLOR, URINE YELLOW (YELLOW); GLUCOSE, URINE (UA) AUTO NEGATIVE (NEGATIVE); KETONE, URINE AUTO NEGATIVE (NEGATIVE); LEUKOCYTE ESTERASE, URINE AUTO NEGATIVE (NEGATIVE); MUCUS, URINE SMALL (NEGATIVE); NITRITE, URINE AUTO NEGATIVE (NEGATIVE); PROTEIN, URINE AUTO 1+ mg/dL (NEGATIVE); RBC, URINE AUTO 3 /HPF (0-3); SPECIFIC GRAVITY URINE AUTO 1.013 (1.002-1.035); SQUAMOUS EPITHELIAL CELL UR AU 4 /HPF (0-6); UROBILINOGEN, URINE AUTO 0.2 mg/dL (0.0-2.0); WBC, URINE AUTO 1 /HPF (0-3)
--- NOTE | 2019-02-26 05:24 | REP ---
Clinical: Dyspnea . Comparison: 09/18/2018 . Findings: The mediastinum and cardiac silhouette are stable with chronic cardiomegaly again noted. Mild increased interstitial markings may reflect chronic change versus subtle interstitial edema. No focal consolidation, effusion, or pneumothorax. Skeletal structures are intact. Impression: Chronic stable cardiomegaly. Cannot exclude mild interstitial edema. Electronically Signed by Lan Marcum MD 02/26/2019 05:16 A
[2019-02-26] MEDS: LEVOTHYROXINE 50MCG TABLET (0.05MG) PO SCH (05:31)
[2019-02-26 06:01] LABS: HEMATOCRIT 35.1 % (36.0-47.0); HEMOGLOBIN 11.6 g/dl (12.0-15.5); MEAN CORPUSCULAR VOLUME 93.9 fl (80.0-96.0); RED BLOOD COUNT 3.74 10^6/uL (4.00-5.40); WHITE BLOOD COUNT 9.6 10^3/uL (4.0-10.0)
[2019-02-26 06:02] LABS: PLATELET COUNT, AUTOMATED 93 10^3/uL (150-450)
[2019-02-26 06:23] LABS: CALCIUM LEVEL 8.8 MG/DL (8.8-10.2); CREATININE FOR GFR 1.48 MG/DL (0.55-1.30); GLOMERULAR FILTRATION RATE 35.8 (>32); PHOSPHORUS LEVEL 3.9 MG/DL (2.5-4.9); POTASSIUM SERUM 4.1 MEQ/L (3.5-5.1)
[2019-02-26 06:27] LABS: CK-MB VALUE MASS < 1.0 NG/ML (<3.6); CPK CREATINE PHOSPHOKINASE 22 U/L (26-192); MB/CK RELATIVE INDEX 4.55 (< OR =4); TROPONIN I < 0.02 NG/ML (< 0.10)
[2019-02-26] MEDS ORDERED: FUROSEMIDE 40 MG/4 ML VIAL (J1940) IV SCH ×2 (08:00→09:00)
[2019-02-26] MEDS ORDERED: IRBESARTAN 150 MG TAB PO SCH (09:00)
[2019-02-26] MEDS: APIXABAN 2.5 MG TAB (ELIQUIS) PO SCH ×2 (09:19→21:00)
[2019-02-26] MEDS: PANTOPRAZOLE 40MG TAB (PROTONIX) PO SCH (09:20)
[2019-02-26] MEDS: FLECAINIDE 50MG TABLET PO SCH ×2 (09:20→21:00)
[2019-02-26] MEDS: ALLOPURINOL 100 MG TAB PO SCH (09:20)
[2019-02-26] MEDS: METOPROLOL TARTRATE 100 MG TAB PO SCH ×2 (09:20→21:00)
[2019-02-26 14:00] VITALS: BP 107/72
--- NOTE | 2019-02-26 14:02 | ECHO ---
DATE OF PROCEDURE: 02/26/2019 REFERRING PROVIDER: Dr. Randhawa. PATIENT LOCATION: Room 4231 REASON FOR STUDY: Shortness of breath, fever, heart failure. 2D MEASUREMENT: IVS 1.1 cm LV 5.3 cm LVPW 1.2 cm LA 4.3 cm Aorta 3.1 cm IVC 1.6 cm DOPPLER MEASUREMENT: Peak velocity across the aortic valve 3.0 m/s Peak velocity across the LVOT 0.6 m/s Peak gradient across the aortic valve 36 mmHg Mean gradient across the aortic valve 22 mmHg Mitral E 0.81 Maximum tricuspid valve velocity 2.3 m/s 2D COMMENTS: 1. Normal left ventricular size with mildly increased left ventricular wall thickness. Left ventricular systolic function seems to be mildly to moderately depressed with an estimated global left ventricular left ventricular systolic ejection fraction of 40%. 2. Mildly enlarged left atrium. Subjectively, the left atrium also appeared to be mildly enlarged. Normal right ventricle. 3. Normal aortic root. 4. Trace to small pericardial effusion noted, no evidence of cardiac tamponade. 5. Moderately calcified aortic valve with decrease in leaflet excursion. Moderately calcified mitral annulus with normal anterior mitral leaflet motion. Normal tricuspid valve, and pulmonic valve. The proximal pulmonary artery branches also appear to be normal. 6. The inferior vena cava was normal in size, central venous pressure is most likely normal. Doppler detects probably moderate aortic root with probably moderate aortic regurgitation, moderate mitral regurgitation, and mild tricuspid regurgitation. The calculated pulmonary artery systolic pressure is about 30 mmHg. Assessment of the ventricular diastolic function was limited. IMPRESSION: 1. Mild to moderate global left ventricular systolic dysfunction with global hypokinesis. Assessment of the left ventricular diastolic function was limited. 2. 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 3. Mitral annulus calcification with moderate mitral regurgitation and mildly enlarged left atrium. 4. Mild tricuspid regurgitation with probably mild pulmonary hypertension. The right atrium also appeared to be mildly enlarged. 5. Trace to small pericardial effusion noted, no evidence of cardiac tamponade.
--- NOTE | 2019-02-26 17:20 | IPNPDOC ---
Text Note Date of Service The patient was seen on 02/26/19. NOTE Subjective: -Feels very tired -Depressed, sometimes starts to cry and hyperventilate when she speak of her advanced age, her friend who yesterday, how she is losing everyone from her generation, and does not want to be a bother to her children and grandchildren by deteriorating and needing help -Was ok for a while, and then family arrived and they visited well until she acutely complained of sudden substernal chest pain @ 430PM and an EKG was done that was non ischemic. She did mention a hiatal hernia that is not apparent on her recent CXR and she is on a a PPI. Objective: General exam: A&O 3, NAD, sleepy, arousable HEENT: NCAT, EOMI, anicteric sclera, dry mucous membranes, poor dentition, wears dentures Cardiac: irregularly irregular, normal rate, normal S1 & S2, 2/6 systolic murmur heard best right sternal border Respiratory: Trace bibasilar crackles, otherwise moving air well without rhonchi or wheezing Abdomen: soft, NT, ND, normoactive bowel sounds Extremity: 2+ radial and dorsalis pedis pulses, trace edema, no calf tenderness Skin: [place], warm, dry Neuro: Drowsy, sleepy, awake on voice, reports that she did not sleep last night in the ED and got up to the floor at almost 6am and is very tired. Normal speech, no focal deficits Psych: Depressed, labile mood, sometimes begins to cry. Labs: reviewed, see below Assessment: 83-year-old W with paroxysmal A. fib chronically on Eliquis, CHF, hypothyroidism, gout who presented with left chest pain with a negative ischemic work up but noted to have elevated proBNP and increased pulmonary vasculature and admitted for decompensated heart failure with course c/b depressed mood and episodic chest pain and shortness of breath with no EKG changes, stable telemetry and no noted hypoxemia. Decompensated CHF -BNP 4000+, increased pulm vasculature on imaging, rales & JVD -Decrease IV lasix from 40 BID to 40 daily as she is taking poor PO and may end up dry. -Her last echo in 2014 showed normal systolic & diastolic dysfxn and is a patient of Dr. Bird, TTE was ordered on admission --> follow up TTE read -Strict I/O -daily wts -cardiac diet Chest pain: Initial chest pain reportedly resolved with Nitro via EMS. The pain from this afternoon, subsided without intervention. -cardiac markers neg & EKG without ST elevation or depression -She reported prior similar episodes "whenever I start AFib", possibly related to her palpitations and arrhythmia -No RVR on telemetry Fever: She had a transient fever to 101 in ER, taken orally -No recent illness, f/c. No pulm or GI or MSK complaints -flu negative. -Blood cultures negative to date -No lactic acidosis -Defervesced without intervention on recheck -Is having a runny nose, suggestive of a URI, no other signs of infection. -Monitor and will hold on starting abx at this point Paroxysmal AFib -rate controlled. -Continue home cardiac meds & Eliquis Depression: -start Lexapro 5mg tomorrow morning Gout: stable -continue allopurinol GERD -continue home pantoprazole DVT ppx: chronically Eliquis CODE STATS: confirmed DNR/DNI with family present, MOLST done, reflected in the record. VS,Fishbone, I+O VS, Fishbone, I+O Laboratory Tests 02/25/19 22:22 02/26/19 05:31 Vital Signs Date Time Temp Pulse Resp B/P (MAP) Pulse Ox O2 Delivery O2 Flow Rate FiO2 02/26/19 14:00 97.8 78 20 107/72 (84) 95 Room Air I&O- Last 24 Hours up to 6 AM 02/26/19 06:00 Output Total 275 ml Balance -275 ml LIBRA BRADFORD MD Feb 26, 2019 17:20
[2019-02-26] MEDS: ACETAMINOPHEN TAB 650MG DOSE (2X325MG) PO PRN (17:32)
[2019-02-26 22:00] VITALS: BP 98/80
--- NOTE | 2019-02-26 22:22 | ECGEPIP ---
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
[2019-02-27] VITALS (17 sets, daily range): BP systolic 79–134; BP diastolic 46–72
[2019-02-27] MEDS ORDERED: DIGOXIN 0.25 MG TAB PO ONE (03:00)
[2019-02-27] MEDS: ACETAMINOPHEN TAB 650MG DOSE (2X325MG) PO PRN (03:21)
--- NOTE | 2019-02-27 03:46 | REPVR ---
PROCEDURE INFORMATION: Exam: XR Chest, 1 View Exam date and time: 02/27/2019 3:30 AM Age: 83 years old Clinical history: Other: Possible sepsis TECHNIQUE: Imaging protocol: XR of the chest Views: 1 view. COMPARISON: CR Chest, 1 view 02/25/2019 10:52 PM FINDINGS: Lungs: Focal infiltrate in the right mid lung laterally, new since the prior study. Pleural space: Unremarkable. No pleural effusion. No pneumothorax. Heart/Mediastinum: Mild cardiomegaly which is unchanged. Bones/joints: Unremarkable. IMPRESSION: 1. New focal infiltrate in the right mid lung laterally since 02/25/2019. 2. Otherwise stable chest. Electronically signed by: Bubba Montes On 02/27/2019 03:45:30 AM
--- NOTE | 2019-02-27 03:58 | REPVR ---
PROCEDURE INFORMATION: Exam: CT Head Without Contrast Exam date and time: 02/27/2019 3:42 AM Age: 83 years old Clinical history: Altered mental status/memory loss and fever; Confusion or disorientation; Additional info: Fever, AMS TECHNIQUE: Imaging protocol: Computed tomography of the head without contrast. Radiation optimization: All CT scans at this facility use at least one of these dose optimization techniques: automated exposure control; mA and/or kV adjustment per patient size (includes targeted exams where dose is matched to clinical indication); or iterative reconstruction. COMPARISON: SR CT Head without contrast 07/29/2015 3:18 PM FINDINGS: Brain: There is moderate patchy low attenuation of deep white matter. 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 Upper normal sulci. Ventricles: Upper normal ventricles. Bones/joints: Depression of the right lamina papyracea. Sinuses: Right maxillary, sphenoid, ethmoid and inferior frontal sinus. Mastoid air cells: Visualized mastoid air cells are well aerated. Soft tissues: Unremarkable. IMPRESSION: 1. Right maxillary, ethmoid, sphenoid and inferior frontal sinus disease, increased since 07/29/2015. Otherwise, there has been little change. 2. 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 3. 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 Electronically signed by: Bubba Montes On 02/27/2019 03:57:49 AM
[2019-02-27] MEDS ORDERED: NS 250 ML IV ONE ×3 (04:00→10:15)
--- NOTE | 2019-02-27 04:05 | REPVR ---
PROCEDURE INFORMATION: Exam: CT Abdomen And Pelvis Without Contrast Exam date and time: 02/27/2019 3:42 AM Age: 83 years old Clinical history: Fever; Additional info: Fevers, abd infxn? TECHNIQUE: Imaging protocol: Computed tomography of the abdomen and pelvis without contrast. Radiation optimization: All CT scans at this facility use at least one of these dose optimization techniques: automated exposure control; mA and/or kV adjustment per patient size (includes targeted exams where dose is matched to clinical indication); or iterative reconstruction. COMPARISON: GALLBLADDER US 01/20/2018 1:18 AM FINDINGS: Lungs: Slight bibasilar interstitial prominence with minimal bibasilar infiltrates and fibro-atelectatic change. Heart: The left atrium measures 5.0 cm cm in its AP dimension. Mediastinum: Minimal hiatal hernia. Liver: Hepatic calcifications. Gallbladder and bile ducts: There is a gallstone in the gallbladder measuring 5 mm. Pancreas: Normal. No ductal dilation. Spleen: The spleen measures 12.3 cm with splenic calcifications. Adrenals: Normal. No mass. Kidneys and ureters: There is a right renal cyst measuring 4.6 cm. Stomach and bowel: There is colonic diverticulosis without evidence of diverticulitis. Appendix: There are no changes of appendicitis. A normal appendix is not seen. Intraperitoneal space: Unremarkable. No free air. No significant fluid collection. Vasculature: Coronary artery calcifications are present. Slight ectasia of the infrarenal abdominal aorta measuring 30 mm. There is mild calcification of the abdominal aorta with extension into the iliac arteries. Lymph nodes: Unremarkable. No enlarged lymph nodes. Bladder: Unremarkable as visualized. Reproductive: Unremarkable as visualized. Bones/joints: Degenerative disc changes and facet arthropathy of the lumbar spine. Soft tissues: Unremarkable. IMPRESSION: 1. Mild cardiomegaly. 2. Slight bibasilar interstitial prominence with minimal bibasilar infiltrates and fibro-atelectatic change. 3. Colonic diverticulosis without diverticulitis. 4. Borderline splenomegaly. 5. Old granulomatous disease of the liver and spleen. 6. Minimal cholelithiasis. 7. Minimal hiatal hernia. Electronically signed by: Bubba Montes On 02/27/2019 04:05:15 AM
[2019-02-27 04:30] LABS: VENOUS BASE EXCESS -0.5 (-2.0-2.0); VENOUS HCO3 24.1 MEQ/L (23.0-27.0); VENOUS PARTIAL PRESSURE CO2 39.1 mmHg (38.0-50.0); VENOUS PARTIAL PRESSURE O2 60.6 mmHg (30.0-50.0); VENOUS PH 7.407 UNITS (7.330-7.430); VENOUS STANDARD HCO3 23.9 MEQ/L; VENOUS TOTAL CO2 25.3 MEQ/L (24.0-28.0)
[2019-02-27 04:37] LABS: BASO % 0.1 % (0.0-1.0); HEMATOCRIT 35.8 % (36.0-47.0); HEMOGLOBIN 11.6 g/dl (12.0-15.5); LYMPH # 0.4 10^3/uL (1.5-5.0); LYMPH % 2.8 % (24.0-44.0); MEAN CORPUSCULAR HEMOGLOBIN 30.7 pg (27.0-33.0); MEAN CORPUSCULAR HGB CONC 32.4 g/dl (32.0-36.5); MEAN CORPUSCULAR VOLUME 94.7 fl (80.0-96.0); MONO # 1.3 10^3/uL (0.0-0.8); MONO % 8.3 % (0.0-5.0); NEUTROPHILS # 13.6 10^3/uL (1.5-8.5); NEUTROPHILS % 88.3 % (36.0-66.0); PLATELET COUNT, AUTOMATED 103 10^3/uL (150-450); RED BLOOD COUNT 3.78 10^6/uL (4.00-5.40); WHITE BLOOD COUNT 15.5 10^3/uL (4.0-10.0)
[2019-02-27] MEDS ORDERED: MEROPENEM INJ 1 GM in IV 1 EA IV SCH (05:00)
[2019-02-27 05:09] LABS: C REACTIVE PROTEIN QUANTITATIV 9.51 MG/DL (0.00-0.30); CALCIUM LEVEL 8.5 MG/DL (8.8-10.2); CREATININE FOR GFR 1.47 MG/DL (0.55-1.30); ERYTHROCYTE SEDIMENTATION RATE 56 mm/hr (0-30); GLOMERULAR FILTRATION RATE 36.1 (>32); MAGNESIUM LEVEL 1.6 MG/DL (1.8-2.4); PHOSPHORUS LEVEL 2.9 MG/DL (2.5-4.9); POTASSIUM SERUM 3.8 MEQ/L (3.5-5.1); TOTAL PROTEIN 6.7 GM/DL (6.4-8.2)
--- NOTE | 2019-02-27 05:43 | IPNPDOC ---
Text Note Date of Service The patient was seen on 02/27/19. NOTE NIGHT NOTE: Patient noted to be tachycardic, A. fib RVR 120s to 140s, asymptomatic and otherwise stable. Dose of digoxin given. Afterwards, she was found to have a rectal temp of 102, hypotensive 80s/50s. Chart reviewed, examined at bedside: General exam: A&O 3, ill-appearing, taking deep breaths, falling asleep and has to be awoken throughout the exam, but is fully oriented and answers appropriately when awake HEENT: NCAT, EOMI, anicteric sclera Cardiac: tachycardic in 130s, irregular rhythm, consistent with Afib RVR on tele, 3/ systolic murmur Respiratory: bibasilar crackles, no wheezing or rhonchi. Taking shallow breaths. No cyanosis Equal chest rise with good breath sounds Abdomen: soft, NT, ND, normoactive bowel sounds. No rebound,guarding,rigidity Extremity: 2+ radial and dorsalis pedis pulses, no edema or calf tenderness Skin: [place], warm, dry, no visible rash Msk: weak overall, needs assistance to move in bed. Equal b/l Neuro: normal speech, no focal deficits, no slurred speech or tongue deviation or confusion Psych: Normal mood and affect Pt reports she feels fine and has no complaints. Xray at bedside noted to have haziness in right middle lung and bases. Pt septic: fever, tachycardia, hypotension. Was transferred to ICU with 250mL x2 given cautiously in light of her CHF. She responded well and immediately jessika up to 110s/80s and HR back down to 110-120s. Started on Vanc & Harsh. Pt examined at bedside, feeling much better and noted to be more interactive and alert, crying however and upset about her recent friend's passing. Reassurance given. CXR read confirms a new right middle lobe pneumonia. Prior respiratory panel and blood cultures negative. New blood cultures pending. VBG-no CO2 retention or acidosis. Nml lactate. Elevated CRP & ESR. Procal pending. Continue close monitoring in ICU overnight, hold diuresis, de-escalate abx pending results for her community-acquire pneumonia. VS,Fishbone, I+O VS, Fishbone, I+O Laboratory Tests 02/26/19 05:31 02/27/19 04:16 Vital Signs Date Time Temp Pulse Resp B/P (MAP) Pulse Ox O2 Delivery O2 Flow Rate FiO2 02/27/19 04:47 118 24 116/54 (74) 97 Nasal Cannula 2.0 02/27/19 04:00 101.3 I&O- Last 24 Hours up to 6 AM 02/27/19 06:00 Intake Total 520 ml Output Total 650 ml Balance -130 ml GME ATTESTATION GME ATTESTATION My faculty preceptor for this patient encounter was physically present during the encounter and was fully available. All aspects of the patient interview, examination, medical decision making process, and medical care plan development were reviewed and approved by the faculty preceptor. The faculty preceptor is aware and concurs with the plan as stated in the body of this note and will attest to such by his/her cosignature. MAGNO CHRIS DO Feb 27, 2019 05:43
[2019-02-27] MEDS ORDERED: MAGNESIUM OXIDE 400 MG TAB (MAG-OX) PO ONE (06:00)
[2019-02-27] MEDS ORDERED: VANCOMYCIN HCL 1,000 MG, VIAL MATE ADAPTER 1 EACH in D5W 250 ML IV SCH (06:00)
[2019-02-27] MEDS: LEVOTHYROXINE 50MCG TABLET (0.05MG) PO SCH (06:18)
[2019-02-27] MEDS ORDERED: VANCOMYCIN HCL 500 MG in D5W MINI-BAG PLUS 100 ML IV ONE (07:00)
--- NOTE | 2019-02-27 07:12 | PHACANCOPD ---
PHARMACY VANCOMYCIN DOSING Pt Demographics Demographics Patient Age:83 , Weight:63.630 , Gender: female Adjusted Body Weight Date: 02/27/19, Adjusted Body Weight: Kg Events Past 24 Hours Events Past 24 Hours: YES: Diuretic Therapy, Fever, Elevation in WBC Vancomycin Vancomycin indication: SEPSIS Vancomycin Target Ranges: 15-20 mcg/ml Vancomycin Load Y/N: Yes Load Dose Date Time Vancomycin Load Dose: 1500MG Date: 02/27/19 Time: 0600 Vancomycin Dose Date: 02/27/19. Current Vancomycin Dose: [ 1 gram q24h ] Intermittent Dosing?: No Labs Labs Vital Signs Label Value Date Time Pulse 98 02/27/19 0600 Pulse 104 02/27/19 0544 Pulse 109 02/27/19 0530 Pulse 117 02/27/19 0514 Pulse 118 02/27/19 0500 Patient Temperature 102.3 degrees F 02/27/19 0305 Patient Temperature 99.2 degrees F 02/26/19 2200 Temperature Source Oral 02/26/19 2200 Blood Pressure Assessment 93/46 (62) 02/27/19 0600 Blood Pressure Assessment 106/61 (76) 02/27/19 0544 Blood Pressure Assessment 107/56 (73) 02/27/19 0530 Blood Pressure Assessment 101/52 (68) 02/27/19 0514 Blood Pressure Assessment 127/60 (82) 02/27/19 0500 Item Value Date Time White Blood Count 15.5 10^3/uL H 02/27/19 0416 White Blood Count 12.8 10^3/uL H 02/25/19 2222 Erythrocyte Sedimentation Rate 56 mm/hr H 02/27/19 0416 Creatinine 1.48 MG/DL H 02/26/19 0531 Creatinine 1.47 MG/DL H 02/27/19 0416 Micro Microbiology 02/27/19 Blood Culture, Received Pending 02/27/19 Blood Culture, Received Pending 02/26/19 Blood Culture - Preliminary, Resulted No growth after 24 hours . All specim... 02/26/19 Respiratory Virus Panel (PCR) (VICKEY) - Final, Complete 02/26/19 Urine Culture - Final, Complete 02/25/19 Blood Culture - Preliminary, Resulted No growth after 24 hours . All specim... Creatinine Clearance Date:02/27/19. Creatinine Clearance: [ 21 mL/min ]. Assessment and Plan Maintaining Current Dose?: Yes Reason for dose change: No Dose Change Pharmacist Note Pharmacist Note Date: 02/27/19. Pharmacist note: Patient, a 83 year old female was admitted to [facility] on 02/26/19 for acute decompensated heart failure. Upon her second day of stay at [facility], a chest xray revealed a right middle lobe pneumonia. She had an elevation in her white blood cell count, hypotension, in addition to a fever. She was placed on broad spectrum coverage including meropenem and vancomycin. A loading dose of 1.5 grams of vancomycin was ordered, with a maintenance dose of 1 gram every 24 hours. A trough was scheduled prior to the third dose. A MRSA PCR screen was also ordered. We will continue to monitor and make adjustments as needed. RIVKA COSTELLO [facility]ARM[facility] Feb 27, 2019 07:12
--- NOTE | 2019-02-27 07:23 | ECGEPIP ---
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
[2019-02-27] MEDS ORDERED: FUROSEMIDE 40 MG/4 ML VIAL (J1940) IV SCH (09:00)
[2019-02-27] MEDS: METOPROLOL TARTRATE 100 MG TAB PO SCH ×2 (09:00→20:58)
[2019-02-27] MEDS ORDERED: PIPERACILLIN/TAZOBACTAM SOD 3.375 GM in D5W MINI-BAG PLUS 50 ML IV SCH (09:00)
[2019-02-27] MEDS: ALLOPURINOL 100 MG TAB PO SCH (09:43)
[2019-02-27] MEDS: APIXABAN 2.5 MG TAB (ELIQUIS) PO SCH ×2 (09:43→21:10)
[2019-02-27] MEDS: PANTOPRAZOLE 40MG TAB (PROTONIX) PO SCH (09:43)
[2019-02-27] MEDS: ESCITALOPRAM OXALATE 5MG TABLET (LEXAPRO) PO SCH (09:43)
[2019-02-27] MEDS: FLECAINIDE 50MG TABLET PO SCH ×2 (09:43→21:10)
--- NOTE | 2019-02-27 11:19 | IPNPDOC ---
Text Note Date of Service The patient was seen on 02/27/19. NOTE Interim events: -Overnight she was noted to be in AF w/ RVR to 140s, asymptomatic and otherwise stable with soft BPs, so was given digoxin x 1, but shortly after had a rectal temp of 102 and BPs 80s/50s and was lopez-cultured and had CXR that showed new RML opacity and CT A/P that showed some minimal bibasilar lung infiltrates and was given 500cc NS bolus, empiric vanc, brook and transferred to the ICU. Subjective: -This morning she feels well, no complaints, depressed that she has pneumonia again, "I seem to get it every year now" -Otherwise reports having eaten all her breakfast early, feels much better rested. -She has no complaints of chest pain, shortness of breath, palpitations, nausea, dysuria, abdominal pain or headache 10 point ROS was otherwise negative if not noted above Objective General exam: A&O 3, much improved alertness, awake alert, conversational HEENT: NCAT, EOMI, anicteric sclera, MMM Cardiac: tachycardic in 110s, irregular rhythm, Afib on tele, 3/6 systolic murmur throughout precordium Respiratory: bibasilar crackles, no wheezing or rhonchi. Breathing comfortably. On room air, was on 2L NC when I arrived, but saturating well with it off. Abdomen: soft, NT, ND, normoactive bowel sounds. Extremity: 2+ radial and dorsalis pedis pulses, no edema or calf tenderness Skin: [place], warm, dry, no visible rashor tongue deviation or confusion Psych: Depressed mood, normal affect Labs: Reviewed. Cr 1.47, Hgb 11.6/35.8, bland UA, pending BCx, negative to date, VBG-no CO2 retention or acidosis. Nml lactate. Elevated CRP & ESR. Procal pendin g. Urine strep, legionella pending. Mycoplasma pending Micro: Reviewed: Prior respiratory panel and blood cultures were negative. New blood cultures from 02/26 overnight are pending. Imaging: CXR: Right middle lobe opacity CT A/P: Minimal bibasilar infiltrates, with otherwise no acute abdominal pa thology CT head: No acute pathology Assessment: 83-year-old W with paroxysmal A. fib chronically on Eliquis, CHF, hypothyroidism, gout who presented with left chest pain with a negative ischemic work up but noted to have elevated proBNP and increased pulmonary vasculature and admitted for decompensated heart failure with course c/b depressed mood and sepsis now diagnosed with PNA and transferred to the ICU for borderline septic shock that resolved with fluids and starting antibiotics. Pneumonia: Was likely admitted with developing CAP given transient fever in the ED with initially unremarkable work up. Now mild leukocytosis, hypotensive, with fever and in RVR. -switch brook to zosyn, continue vanc and send MRSA swab for de-escalation planning -f/u blood cultures -send sputum if she is producing any -follow up procalcitonin Decompensated CHF -BNP 4000+, increased pulm vasculature on imaging, rales -Discontinue all diuretics in the setting of sepsis with low BP -Her last echo in 2014 showed normal systolic & diastolic dysfxn and is a patient of Dr. Bird, TTE -Strict I/O -daily wts -cardiac diet -continue beta melinda, dc ARB at this time Chest pain: Initial chest pain reportedly resolved with Nitro via EMS. No pain at this time -cardiac markers neg & EKG without ST elevation or depression -She reported prior similar episodes "whenever I start AFib", possibly related to her palpitations and arrhythmia -No abdominal imaging to explain etiology of pain -monitor Paroxysmal AFib -rate controlled. -Continue beta melinda & Eliquis Depression: -start Lexapro 5mg this morning Gout: stable -continue allopurinol GERD -continue home pantoprazole DVT ppx: chronically Eliquis CODE STATS: DNR/DNI Dispo: Transfer from ICU to PCU VS,Javi, I+O VS, Javi I+O Laboratory Tests 02/27/19 04:16 Vital Signs Date Time Temp Pulse Resp B/P (MAP) Pulse Ox O2 Delivery O2 Flow Rate FiO2 02/27/19 10:27 103 106/54 (71) 93 Room Air 02/27/19 08:11 98.3 18 2.0 I&O- Last 24 Hours up to 6 AM 02/27/19 06:00 Intake Total 520 ml Output Total 650 ml Balance -130 ml LIBRA BRADFORD MD Feb 27, 2019 11:19
[2019-02-27] MEDS: PIPERACILLIN/TAZOBACTAM SOD 2.25 GM in D5W MINI-BAG PLUS 50 ML IV SCH ×2 (17:00→21:10)
[2019-02-28] VITALS: BP 119/68
[2019-02-28] MEDS: METOPROLOL TARTRATE 100 MG TAB PO SCH ×3 (00:57→21:27)
[2019-02-28] MEDS: ACETAMINOPHEN TAB 650MG DOSE (2X325MG) PO PRN ×2 (01:01→22:34)
[2019-02-28] MEDS: PIPERACILLIN/TAZOBACTAM SOD 2.25 GM in D5W MINI-BAG PLUS 50 ML IV SCH ×4 (03:18→21:26)
[2019-02-28 04:00] VITALS: BP 151/82
[2019-02-28] MEDS: LEVOTHYROXINE 50MCG TABLET (0.05MG) PO SCH (05:23)
[2019-02-28 05:38] LABS: HEMATOCRIT 33.9 % (36.0-47.0); HEMOGLOBIN 11.1 g/dl (12.0-15.5); MEAN CORPUSCULAR HEMOGLOBIN 30.8 pg (27.0-33.0); MEAN CORPUSCULAR HGB CONC 32.7 g/dl (32.0-36.5); MEAN CORPUSCULAR VOLUME 94.2 fl (80.0-96.0); PLATELET COUNT, AUTOMATED 102 10^3/uL (150-450); WHITE BLOOD COUNT 11.8 10^3/uL (4.0-10.0)
[2019-02-28 05:57] LABS: CALCIUM LEVEL 8.9 MG/DL (8.8-10.2); CREATININE FOR GFR 1.45 MG/DL (0.55-1.30); GLOMERULAR FILTRATION RATE 36.6 (>32); MAGNESIUM LEVEL 1.9 MG/DL (1.8-2.4); PHOSPHORUS LEVEL 3.3 MG/DL (2.5-4.9); POTASSIUM SERUM 4.4 MEQ/L (3.5-5.1)
[2019-02-28 08:00] VITALS: BP 137/79
[2019-02-28] MEDS: ESCITALOPRAM OXALATE 5MG TABLET (LEXAPRO) PO SCH (09:36)
[2019-02-28] MEDS: APIXABAN 2.5 MG TAB (ELIQUIS) PO SCH ×2 (09:37→21:27)
[2019-02-28] MEDS: ALLOPURINOL 100 MG TAB PO SCH (09:37)
[2019-02-28] MEDS: PANTOPRAZOLE 40MG TAB (PROTONIX) PO SCH (09:37)
[2019-02-28] MEDS: FLECAINIDE 50MG TABLET PO SCH ×2 (09:37→21:27)
[2019-02-28] MEDS ORDERED: SLF 3 ML SYR IV PRN (10:45)
[2019-02-28 12:00] VITALS: BP 121/63
--- NOTE | 2019-02-28 12:30 | IPNPDOC ---
Text Note Date of Service The patient was seen on 02/28/19. NOTE Subjective: -Doing much better today. Sitting up in chair, looking forward to getting home. -No more episodes of chest pain, no shortness of breath, no palpitations, no abdominal pain or diarrhea 10 point ROS was also reviewed and was otherwise negative. Objective: General exam: A&O 3, sitting up in a chair, conversational, pleasant HEENT: NCAT, EOMI, anicteric sclera, MMM Cardiac: Irregularly irregular rhythm, Afib on tele, 3/6 systolic murmur throughout precordium Respiratory: bibasilar crackles remain, no wheezing or rhonchi. Breathing comfortably on room air Abdomen: soft, NT, ND, normoactive bowel sounds. Extremity: 2+ radial and dorsalis pedis pulses, no edema or calf tenderness Skin: [place], warm, dry, no rash Psych: Much more upbeat mood today, glad to be getting better, normal affect Labs: Reviewed. Cr 1.45, Hgb 11.1, Procal 0.41. Urine strep, legionella pending. Mycoplasma pending Micro: Reviewed: 02/26 BCx, growing Gram variable rods, Prior respiratory panel and blood cultures were negative. Imaging: no new interval imaging in the last 24h 02/26 CXR: Right middle lobe opacity 02/26 CT A/P: Minimal bibasilar infiltrates, with otherwise no acute abdominal pathology 02/26 CT head: No acute pathology 02/26 TTE: 1. Normal left ventricular size with mildly increased left ventricular wall thickness. Left ventricular systolic function seems to be mildly to moderately depressed with an estimated global left ventricular left ventricular systolic ejection fraction of 40%. 2. Mildly enlarged left atrium. Subjectively, the left atrium also appeared to be mildly enlarged. Normal right ventricle. 3. Normal aortic root. 4. Trace to small pericardial effusion noted, no evidence of cardiac tamponade. 5. Moderately calcified aortic valve with decrease in leaflet excursion. Moderately calcified mitral annulus with normal anterior mitral leaflet motion. Normal tricuspid valve, and pulmonic valve. The proximal pulmonary artery branches also appear to be normal. 6. The inferior vena cava was normal in size, central venous pressure is most likely normal. Doppler detects probably moderate aortic root with probably moderate aortic regurgitation, moderate mitral regurgitation, and mild tricuspid regurgitation. The calculated pulmonary artery systolic pressure is about 30 mmHg. Assessment of the ventricular diastolic function was limited. IMPRESSION: 1. Mild to moderate global left ventricular systolic dysfunction with global hypokinesis. Assessment of the left ventricular diastolic function was limited. 2. 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 3. Mitral annulus calcification with moderate mitral regurgitation and mildly enlarged left atrium. 4. Mild tricuspid regurgitation with probably mild pulmonary hypertension. The right atrium also appeared to be mildly enlarged. 5. Trace to small pericardial effusion noted, no evidence of cardiac tamponade. Assessment: 83-year-old W with paroxysmal A. fib chronically on Eliquis, CHF, hypothyroidism, gout who presented with left chest pain with a negative ischemic work up but noted to have elevated proBNP and increased pulmonary vasculature and admitted for decompensated heart failure with course c/b depressed mood and sepsis now diagnosed with PNA and transferred to the ICU for borderline septic shock that resolved with fluids and starting antibiotics with blood cultures growing gram variable rods pending speciation, with much clinical improvement on zosyn. Plan: Pneumonia c/b bacteremia and septic shock: Was likely admitted with developing CAP given transient fever in the ED with initially unremarkable work up. Then while inpatient was increasingly lethargic, tachycardic, and had a fever and hypotensive. Studies showed leukocytosis, and now growing gram variable rods in the 02/26 blood cultures. -Continue zosyn, until 02/26 cultures speciate -s/p fluids, now normotensive, septic shock resolved. Decompensated CHF: Has a history of diastolic dysfunction and during this admission has newly noted systolic dysfunction with global hypokinesis and newly depressed EF of 40%, in the setting of septic shock. -BNP 4000+, increased pulm vasculature on imaging, rales -Discontinued all diuretics in the setting of septic shock with low BP, continue to hold off diuretics for now -Her last echo in 2014 showed normal systolic & diastolic dysfxn and is a patient of Dr. Bird. During this admission, TTE showed global hypokinesis and reduced EF to 40% and the study could not adequate assess for diastolic dysfunction. -Strict I/O -daily wts -cardiac diet -continue beta melinda, held ARB when she was hypotensive, will continue to hold at this time and restart if she has sustained hypertension. Chest pain: Initial chest pain reportedly resolved with Nitro via EMS. No pain at this time -cardiac markers neg & EKG without ST elevation or depression -She reported prior similar episodes "whenever I start AFib", possibly related to her palpitations and arrhythmia -No abdominal imaging to explain etiology of pain -monitor Paroxysmal AFib: Had an episode of RVR this admission while septic and acutely became hypotensive, now resolved. -s/p digoxin when she had an episode of RVR, now resolved and remains on her baseline beta melinda -rate controlled -Continue beta melinda & Eliquis Depression: -continue Lexapro 5mg this morning Gout: stable -continue allopurinol GERD: -continue home pantoprazole DVT ppx: chronically Eliquis CODE STATS: DNR/DNI Dispo: Transfer from PCU to [facility] with tele VS,Javi, I+O VS, Javi I+O Laboratory Tests 02/28/19 05:13 Vital Signs Date Time Temp Pulse Resp B/P (MAP) Pulse Ox O2 Delivery O2 Flow Rate FiO2 02/28/19 08:00 97.4 84 17 137/79 (98) 97 Room Air 02/27/19 08:11 2.0 I&O- Last 24 Hours up to 6 AM 02/28/19 06:00 Intake Total 1730 ml Output Total 750 ml Balance 980 ml LIBRA BRADFORD MD Feb 28, 2019 12:30
[2019-02-28] MEDS: SLF 3 ML SYR IV SCH ×2 (15:38→21:27)
[2019-02-28 16:00] VITALS: BP 114/66
[2019-02-28 20:00] VITALS: BP 125/62
[2019-03-01] MEDS: PIPERACILLIN/TAZOBACTAM SOD 2.25 GM in D5W MINI-BAG PLUS 50 ML IV SCH ×4 (03:46→21:02)
[2019-03-01 04:00] VITALS: BP 110/56
[2019-03-01] MEDS: LEVOTHYROXINE 50MCG TABLET (0.05MG) PO SCH (05:29)
[2019-03-01] MEDS: SLF 3 ML SYR IV SCH ×3 (05:30→21:02)
[2019-03-01 06:01] LABS: HEMATOCRIT 36.9 % (36.0-47.0); HEMOGLOBIN 11.4 g/dl (12.0-15.5); MEAN CORPUSCULAR HEMOGLOBIN 29.8 pg (27.0-33.0); MEAN CORPUSCULAR HGB CONC 30.9 g/dl (32.0-36.5); MEAN CORPUSCULAR VOLUME 96.3 fl (80.0-96.0); PLATELET COUNT, AUTOMATED 104 10^3/uL (150-450); RED BLOOD COUNT 3.83 10^6/uL (4.00-5.40); WHITE BLOOD COUNT 7.9 10^3/uL (4.0-10.0)
[2019-03-01 06:09] LABS: CALCIUM LEVEL 9.2 MG/DL (8.8-10.2); CREATININE FOR GFR 1.27 MG/DL (0.55-1.30); GLOMERULAR FILTRATION RATE 42.7 (>32); MAGNESIUM LEVEL 2.2 MG/DL (1.8-2.4); PHOSPHORUS LEVEL 2.9 MG/DL (2.5-4.9); POTASSIUM SERUM 4.4 MEQ/L (3.5-5.1)
[2019-03-01 08:00] VITALS: BP 108/58
[2019-03-01] MEDS: METOPROLOL TARTRATE 100 MG TAB PO SCH ×2 (09:00→21:01)
[2019-03-01] MEDS: ESCITALOPRAM OXALATE 5MG TABLET (LEXAPRO) PO SCH (09:22)
[2019-03-01] MEDS: ALLOPURINOL 100 MG TAB PO SCH (09:22)
[2019-03-01] MEDS: APIXABAN 2.5 MG TAB (ELIQUIS) PO SCH ×2 (09:22→21:01)
[2019-03-01] MEDS: PANTOPRAZOLE 40MG TAB (PROTONIX) PO SCH (09:22)
[2019-03-01] MEDS: FLECAINIDE 50MG TABLET PO SCH ×2 (09:22→21:01)
[2019-03-01 12:00] VITALS: BP 104/72
[2019-03-01 16:00] VITALS: BP 108/60
--- NOTE | 2019-03-01 18:54 | IPNPDOC ---
Text Note Date of Service The patient was seen on 03/01/19. NOTE Subjective: -Improving daily, feels well, looking forward to going home but understand if she has to stay until her treatment is optimized. Sitting up in chair, visiting with her granddaughter. -No episodes of chest pain, no shortness of breath, no palpitations, no abdominal pain or diarrhea -Worked with PT today 10 point ROS was also reviewed and was otherwise negative. Objective: General exam: A&O 3, sitting up in a chair, conversational, pleasant HEENT: NCAT, EOMI, anicteric sclera, MMM Cardiac: Irregularly irregular rhythm, Afib on tele, 3/6 systolic murmur throughout precordium Respiratory: bibasilar crackles remain, no wheezing or rhonchi, otherwise speaking in full sentences on room air. Abdomen: soft, NT, ND, normoactive bowel sounds. Extremity: WWP, no LE edema Skin: [place], warm, dry, no rash Psych: Aox3, normal affect Labs: Reviewed. Cr improved to 1.27, WBC now normalized at 7.9. Urine strep, legionella pending. Mycoplasma pending Micro: Reviewed: 02/26 BCx, growing Gram variable rods, Prior respiratory panel and blood cultures were negative. Imaging: no new interval imaging in the last 24h 02/26 CXR: Right middle lobe opacity 02/26 CT A/P: Minimal bibasilar infiltrates, with otherwise no acute abdominal pathology 02/26 CT head: No acute pathology 02/26 TTE: 1. Normal left ventricular size with mildly increased left ventricular wall thickness. Left ventricular systolic function seems to be mildly to moderately depressed with an estimated global left ventricular left ventricular systolic ejection fraction of 40%. 2. Mildly enlarged left atrium. Subjectively, the left atrium also appeared to be mildly enlarged. Normal right ventricle. 3. Normal aortic root. 4. Trace to small pericardial effusion noted, no evidence of cardiac tamponade. 5. Moderately calcified aortic valve with decrease in leaflet excursion. Moderately calcified mitral annulus with normal anterior mitral leaflet motion. Normal tricuspid valve, and pulmonic valve. The proximal pulmonary artery branches also appear to be normal. 6. The inferior vena cava was normal in size, central venous pressure is most likely normal. Doppler detects probably moderate aortic root with probably moderate aortic regurgitation, moderate mitral regurgitation, and mild tricuspid regurgitation. The calculated pulmonary artery systolic pressure is about 30 mmHg. Assessment of the ventricular diastolic function was limited. IMPRESSION: 1. Mild to moderate global left ventricular systolic dysfunction with global hypokinesis. Assessment of the left ventricular diastolic function was limited. 2. 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 3. Mitral annulus calcification with moderate mitral regurgitation and mildly enlarged left atrium. 4. Mild tricuspid regurgitation with probably mild pulmonary hypertension. The right atrium also appeared to be mildly enlarged. 5. Trace to small pericardial effusion noted, no evidence of cardiac tamponade. Assessment: 83-year-old W with paroxysmal A. fib chronically on Eliquis, CHF, hypothyroidism, gout who presented with left chest pain with a negative ischemic work up but noted to have elevated proBNP and increased pulmonary vasculature and admitted for decompensated heart failure with course c/b depressed mood and sepsis now diagnosed with PNA and transferred to the ICU for borderline septic shock that resolved with fluids and starting antibiotics with blood cultures growing gram variable rods pending speciation, with much clinical improvement on zosyn. Plan: Pneumonia c/b bacteremia and septic shock: Was likely admitted with developing CAP given transient fever in the ED with initially unremarkable work up. Then while inpatient was increasingly lethargic, tachycardic, and had a fever and hypotensive. Studies showed leukocytosis, and now growing gram variable rods in the 02/26 blood cultures. -Continue zosyn, until 02/26 cultures speciate -s/p fluids, now normotensive, septic shock resolved. Decompensated CHF: Has a history of diastolic dysfunction and during this admission has newly noted systolic dysfunction with global hypokinesis and newly depressed EF of 40%, in the setting of septic shock. -BNP 4000+, increased pulm vasculature on imaging, rales -Discontinued all diuretics in the setting of septic shock with low BP, continue to hold off diuretics for now -Her last echo in 2014 showed normal systolic & diastolic dysfxn and is a patient of Dr. Bird. During this admission, TTE showed global hypokinesis and reduced EF to 40% and the study could not adequate assess for diastolic dysfunction. -Strict I/O -daily wts -cardiac diet -continue beta melinda, held ARB when she was hypotensive, will continue to hold at this time and restart if she has sustained hypertension. Chest pain: Initial chest pain reportedly resolved with Nitro via EMS. No pain at this time -cardiac markers neg & EKG without ST elevation or depression -She reported prior similar episodes "whenever I start AFib", possibly related to her palpitations and arrhythmia -No abdominal imaging to explain etiology of pain -monitor Paroxysmal AFib: Had an episode of RVR this admission while septic and acutely became hypotensive, now resolved. -s/p digoxin when she had an episode of RVR, now resolved and remains on her baseline beta melinda -rate controlled -Continue beta melinda & Eliquis Depression: -continue Lexapro 5mg this morning Gout: stable -continue allopurinol GERD: -continue home pantoprazole DVT ppx: chronically Eliquis CODE STATS: DNR/DNI Dispo: Medsurg VS,Fishbone, I+O VS, Fishbone, I+O Laboratory Tests 03/01/19 05:34 Vital Signs Date Time Temp Pulse Resp B/P (MAP) Pulse Ox O2 Delivery O2 Flow Rate FiO2 03/01/19 16:00 97.3 77 18 108/60 (76) 96 Room Air 02/27/19 08:11 2.0 I&O- Last 24 Hours up to 6 AM 03/01/19 06:00 Intake Total 1470 ml Output Total 575 ml Balance 895 ml LIBRA BRADFORD MD Mar 01, 2019 18:54
[2019-03-01 20:00] VITALS: BP 137/70
[2019-03-01 23:59] VITALS: BP 138/60
[2019-03-02] MEDS: PIPERACILLIN/TAZOBACTAM SOD 2.25 GM in D5W MINI-BAG PLUS 50 ML IV SCH ×2 (03:33→10:52)
[2019-03-02 04:00] VITALS: BP 114/55
[2019-03-02] MEDS: LEVOTHYROXINE 50MCG TABLET (0.05MG) PO SCH (05:24)
[2019-03-02] MEDS: SLF 3 ML SYR IV SCH (05:25)
[2019-03-02 06:10] LABS: HEMATOCRIT 32.7 % (36.0-47.0); HEMOGLOBIN 10.7 g/dl (12.0-15.5); MEAN CORPUSCULAR HEMOGLOBIN 30.5 pg (27.0-33.0); MEAN CORPUSCULAR HGB CONC 32.7 g/dl (32.0-36.5); MEAN CORPUSCULAR VOLUME 93.2 fl (80.0-96.0); PLATELET COUNT, AUTOMATED 108 10^3/uL (150-450); RED BLOOD COUNT 3.51 10^6/uL (4.00-5.40); WHITE BLOOD COUNT 4.4 10^3/uL (4.0-10.0)
[2019-03-02 06:23] LABS: CALCIUM LEVEL 8.5 MG/DL (8.8-10.2); CREATININE FOR GFR 1.22 MG/DL (0.55-1.30); GLOMERULAR FILTRATION RATE 44.7 (>32); PHOSPHORUS LEVEL 3.2 MG/DL (2.5-4.9); POTASSIUM SERUM 4.2 MEQ/L (3.5-5.1)
[2019-03-02 06:24] LABS: MAGNESIUM LEVEL 2.2 MG/DL (1.8-2.4)
[2019-03-02 08:00] VITALS: BP 113/67
[2019-03-02] MEDS: ALLOPURINOL 100 MG TAB PO SCH (08:43)
[2019-03-02] MEDS: APIXABAN 2.5 MG TAB (ELIQUIS) PO SCH (08:43)
[2019-03-02] MEDS: FLECAINIDE 50MG TABLET PO SCH (08:43)
[2019-03-02] MEDS: ESCITALOPRAM OXALATE 5MG TABLET (LEXAPRO) PO SCH (08:43)
[2019-03-02] MEDS: PANTOPRAZOLE 40MG TAB (PROTONIX) PO SCH (08:43)
[2019-03-02 08:44] VITALS: BP 113/67
[2019-03-02] MEDS: METOPROLOL TARTRATE 100 MG TAB PO SCH (08:44)
--- NOTE | 2019-03-02 11:35 | DS.PDOC ---
Discharge Summary General Date of Admission Feb 26, 2019 at 03:21 Date of Discharge 03/02/2019 Attending Physician: LIBRA BRADFORD MD Discharge Summary PROCEDURES PERFORMED DURING STAY: None ADMITTING DIAGNOSES: 1. Decompensated diastolic heart failure DISCHARGE DIAGNOSES: 1. Community acquired pneumonia c/b septic shock 2. Decompensated chronic diastolic heart failure with newly noted systolic failure with reduced ejection fraction 3. Atrial fibrillation with RVR 4. Hypothyroidism 5. Depression COMPLICATIONS/CHIEF COMPLAINT: CHF. HISTORY OF PRESENT ILLNESS: 83-year-old woman with paroxysmal A. fib chronically on Eliquis, CHF, hypothyroidism who presented for acute onset of left upper chest pain that began while sitting a few hours before presentation without any obvious inciting factors or recent injuries. She described the pain as sharp with associated chest tightness and pressure "like throwing bricks," going up as far as the left shoulder, however without back pain. Pain was constant, relieved by nitroglycerin in EMS. She otherwise denied active cardiac history or intervention or a history of clots. She reported having had similar episodes in the past whenever she goes into A. fib. She otherwise did not have associated shortness of breath, lightheadedness, dizziness, cough, PND, orthopnea, edema and had no recent fever, chills, travel, missed medications, sick contacts or illnesses. HOSPITAL COURSE: In EMS, she was also given full dose aspirin, and in the ER, was noted to have an oral temperature of 101 and BNP of 4000+. Work up was notable for a negative flu swab, EKG in A. fib with rate controlled and 70s and CXR with no opacities or significant vascular congestion. She was given 100 milligrams IV Lasix and Tylenol in the ER and felt much better by the time she got the floor. On the floor, she was noticeably depressed with teary conversations, flat affect and reported disengagement from her family's celebrations including thank sgiving. I started on lexapro 5 daily. In the mean time she was increasingly lethargic with poor PO and on the night on 02/27 she was noted to be in AF w/ RVR to 140s, asymptomatic and otherwise stable with soft BPs, and so was given digoxin x 1, but shortly after had a rectal temp of 102 and BPs 80s/50s and was lopez-cultured and had CXR that showed new RML opacity and CT A/P that showed some minimal bibasilar lung infiltrates and was given 500cc NS bolus, empiric vanc, brook and transferred to the ICU. In the ICU, her pressures stabilized into the low 100s and the brook was de- escalated to zosyn, while the vanc was eventually discontinued after a negative MRSA PCR. She was transferred to the floor and continue to do very well on zosyn while 1 set out of 2 blood cultures from 02/27 grew gram variable rods that were eventually reported as bacilli that were likely contaminant and she was de-e scalated to levaquin. She was seen by PT for deconditioning and did very well and PT recommended discharge home with a rollator walker. She is now being discharged home where she will complete a community acquired pneumonia course with levaquin for an extra 3 days for a 7 day course. DISCHARGE MEDICATIONS: Please see below. ALLERGIES: Please see below. PHYSICAL EXAMINATION ON DISCHARGE: VITAL SIGNS: Please see below. General exam: A&O 3, sitting up in a chair, conversational, pleasant, excited to get home HEENT: NCAT, EOMI, anicteric sclera, MMM Cardiac: Irregularly irregular rhythm, 3/6 systolic murmur throughout precordium Respiratory: bibasilar crackles remain, no wheezing or rhonchi, otherwise speaking in full sentences on room air. Abdomen: soft, NT, ND, normoactive bowel sounds. Extremity: WWP, no LE edema Skin: [place], warm, dry, no rash Psych: Aox3, normal affect LABORATORY DATA: Please see below. IMAGIN/30 CXR: Right middle lobe opacity 02/26 CT A/P: Minimal bibasilar infiltrates, with otherwise no acute abdominal pathology 02/26 CT head: No acute pathology 02/26 TTE: 1. Normal left ventricular size with mildly increased left ventricular wall thickness. Left ventricular systolic function seems to be mildly to moderately depressed with an estimated global left ventricular left ventricular systolic ejection fraction of 40%. 2. Mildly enlarged left atrium. Subjectively, the left atrium also appeared to be mildly enlarged. Normal right ventricle. 3. Normal aortic root. 4. Trace to small pericardial effusion noted, no evidence of cardiac tamponade. 5. Moderately calcified aortic valve with decrease in leaflet excursion. Moderately calcified mitral annulus with normal anterior mitral leaflet motion. Normal tricuspid valve, and pulmonic valve. The proximal pulmonary artery branches also appear to be normal. 6. The inferior vena cava was normal in size, central venous pressure is most likely normal. 02/27: CXR: 1. New focal infiltrate in the right mid lung laterally since 02/25/2019. 2. Otherwise stable chest. 02/27: noncon head CT: no acute intracranial abnormalities 02/27 CT A/P: 1. Mild cardiomegaly. 2. Slight bibasilar interstitial prominence with minimal bibasilar infiltrates and fibro-atelectatic change. 3. Colonic diverticulosis without diverticulitis. 4. Borderline splenomegaly. 5. Old granulomatous disease of the liver and spleen. 6. Minimal cholelithiasis. 7. Minimal hiatal hernia. PROGNOSIS: Good ACTIVITY: As tolerated DIET: Regular DISCHARGE PLAN: Home with 3 more days of levaquin for CAP and lifetime rollator walker per PT DISPOSITION: Home DISCHARGE INSTRUCTIONS: 1. Home with 3 more days of levaquin for CAP and lifetime rollator walker per PT. PCP follow up within 7-10d ITEMS TO FOLLOWUP ON OUTPATIENT: 1. Resolution of PNA DISCHARGE CONDITION: Good TIME SPENT ON DISCHARGE: 53 minutes. Vital Signs/I&Os Vital Signs Date Time Temp Pulse Resp B/P (MAP) Pulse Ox O2 Delivery O2 Flow Rate FiO2 03/02/19 08:44 95 113/67 03/02/19 08:00 97.0 18 94 Room Air 02/27/19 08:11 2.0 I&O- Last 24 Hours up to 6 AM 03/02/19 06:00 Intake Total 1220 ml Output Total 500 ml Balance 720 ml Laboratory Data Labs 24H Laboratory Tests 2 03/02/19 05:48: Nucleated Red Blood Cells % (auto) 0.0, Anion Gap 4L, Glomerular Filtration Rate 44.7, Calcium Level 8.5L, Phosphorus Level 3.2, Magnesium Level 2.2 CBC/BMP Laboratory Tests 03/02/19 05:48 Microbiology Microbiology 02/27/19 Blood Culture - Final, Complete Bacillus Sp., Not Anthracis 02/27/19 Blood Culture - Preliminary, Resulted No Growth after 72 hours. All specime... 02/26/19 Blood Culture - Preliminary, Resulted No Growth after 72 hours. All specime... 02/26/19 Respiratory Virus Panel (PCR) ([facility]IC[facility]) - Final, Complete 02/26/19 Urine Culture - Final, Complete 02/25/19 Blood Culture - Preliminary, Resulted No Growth after 72 hours. All specime... Discharge Medications Scheduled Allopurinol (Allopurinol) 100 Mg Tab, 100 MG PO DAILY, (Reported) Apixaban (Eliquis) 2.5 Mg Tab, 2.5 MG PO BID, (Reported) Flecainide Acetate (Flecainide Acetate) 50 Mg Tablet, 50 MG PO BID, (Reported) Furosemide (Furosemide) 20 Mg Tablet, 20 MG PO DAILY, (Reported) Irbesartan (Irbesartan) 150 Mg Tab, 150 MG PO DAILY, (Reported) Levothyroxine Sodium (Levothyroxine Sodium) 50 Mcg Tablet, 50 MCG PO DAILY, (Reported) Metoprolol Tartrate (Metoprolol Tartrate) 100 Mg Tablet, 100 MG PO BID, (Reported) Pantoprazole Sodium (Pantoprazole Sodium) 40 Mg Tablet.dr, 40 MG PO DAILY, (Reported) Allergies Coded Allergies: codeine (Verified Adverse Reaction, Mild, UPSET STOMACH, 02/25/19) tramadol (Verified Adverse Reaction, Unknown, HEADACHE, 02/25/19) LIBRA BRADFORD MD Mar 02, 2019 10:40
[2019-03-02] MEDS ORDERED: DOXY-342 PO (11:47)
[2019-03-02] MEDS ORDERED: CEFU50TA PO (11:47)
[2019-03-02] MEDS ORDERED: LEXA5TAB13 PO (12:04)
== END 2019-03-02 14:21 | disposition home or self-care (01) | DRG 291 ==
LOC: M ED 21:59 → M ED INP 02-26 03:21 → M MSPAV 02-26 05:03 → M ICU 02-27 03:53 → M PCU 02-27 14:36
PROVIDERS: ADMIT Internal Medicine Nephrology; ATTEND Internal Medicine
DX: I50.43 Acute on chronic combined systolic (congestive) and diastolic (congestive) heart failure (principal); J18.9 Pneumonia, unspecified organism; A41.9 Sepsis, unspecified organism; R65.21 Severe sepsis with septic shock; I48.0 Paroxysmal atrial fibrillation; E03.9 Hypothyroidism, unspecified; R33.9 Retention of urine, unspecified; K21.9 Gastro-esophageal reflux disease without esophagitis; R50.9 Fever, unspecified; F32.9 Major depressive disorder, single episode, unspecified; Z66 Do not resuscitate; Z88.5 Allergy status to narcotic agent; M10.9 Gout, unspecified; Z90.49 Acquired absence of other specified parts of digestive tract; Z79.01 Long term (current) use of anticoagulants; Z79.899 Other long term (current) drug therapy

== ENCOUNTER → 2019-03-09 | Outpatient (CLI) | payer MEDICARE ==
[~2019-03-09] MED LIST changes: +CEFU50TA PO; +DOXY-342 PO; +FURO20TA2 PO; +LEXA5TAB13 PO; +METO100T5 PO; +PANT-23 PO
[2019-03-09 11:13] LABS: FREE T3 1.9 PG/ML (2.2-4.0); FREE T4 1.61 NG/DL (0.76-1.46); THYROID STIMULATING HORMONE 8.85 uIU/ML (0.358-3.740)
== END ==
LOC: M LAB 09:44
PROVIDERS: ATTEND Family Medicine
DX: E03.9 Hypothyroidism, unspecified (principal)

== ENCOUNTER → 2019-04-18 | Outpatient (REF) | payer MEDICARE ==
[2019-04-18 19:23] LABS: CALCIUM LEVEL 8.3 MG/DL (8.8-10.2); CREATININE FOR GFR 0.95 MG/DL (0.55-1.30); FREE T4 1.44 NG/DL (0.76-1.46); GLOMERULAR FILTRATION RATE 59.7 (>32); POTASSIUM SERUM 4.2 MEQ/L (3.5-5.1); THYROID STIMULATING HORMONE 4.41 uIU/ML (0.358-3.740)
== END ==
LOC: M LABDRAW1 17:22
PROVIDERS: ATTEND Family Medicine
DX: E03.9 Hypothyroidism, unspecified (principal)

== ENCOUNTER 2019-06-26 11:15 | Emergency (ER) | payer MEDICARE ==
[~2019-06-26] VITALS: Ht 162.6 cm; Wt 70.0 kg
[~2019-06-26 11:15] MED LIST changes: -IRBE150T12 PO; +IRBE150T7 PO
[2019-06-26 11:48] LABS: VENOUS BASE EXCESS 1.1 (-2.0-2.0); VENOUS HCO3 28.1 MEQ/L (23.0-27.0); VENOUS PARTIAL PRESSURE CO2 55.7 mmHg (38.0-50.0); VENOUS PARTIAL PRESSURE O2 28.5 mmHg (30.0-50.0); VENOUS STANDARD HCO3 24.3 MEQ/L; VENOUS TOTAL CO2 29.8 MEQ/L (24.0-28.0)
[2019-06-26 11:52] LABS: BASO % 0.2 % (0.0-1.0); EOS % 0.2 % (0.0-3.0); HEMATOCRIT 34.6 % (36.0-47.0); HEMOGLOBIN 10.9 g/dl (12.0-15.5); LYMPH # 0.5 10^3/uL (1.5-5.0); LYMPH % 4.6 % (24.0-44.0); MEAN CORPUSCULAR HEMOGLOBIN 30.9 pg (27.0-33.0); MEAN CORPUSCULAR HGB CONC 31.5 g/dl (32.0-36.5); MONO # 1.1 10^3/uL (0.0-0.8); MONO % 10.7 % (0.0-5.0); NEUTROPHILS # 8.5 10^3/uL (1.5-8.5); PLATELET COUNT, AUTOMATED 120 10^3/uL (150-450); RED BLOOD COUNT 3.53 10^6/uL (4.00-5.40); WHITE BLOOD COUNT 10.1 10^3/uL (4.0-10.0)
[2019-06-26 12:03] LABS: INR 1.41
--- NOTE | 2019-06-26 12:06 | REP ---
Clinical: Shortness of breath . Comparison: 02/27/2019 . Findings: The mediastinum and cardiac silhouette are stable and cardiomegaly is again suggested. The lung jaime demonstrate stable chronic changes without acute consolidation, effusion, or pneumothorax. Skeletal structures are intact. Impression: No focal consolidation or effusion. Electronically Signed by Lan Marcum MD 06/26/2019 11:58 A
[2019-06-26 12:28] LABS: ALBUMIN 3.6 GM/DL (3.2-5.2); ALT/SGPT 28 U/L (12-78); BILIRUBIN,DIRECT 0.4 MG/DL (0.0-0.2); BILIRUBIN,TOTAL 1.1 MG/DL (0.2-1.0); BLOOD UREA NITROGEN 20 MG/DL (7-18); CALCIUM LEVEL 8.7 MG/DL (8.8-10.2); CARBON DIOXIDE LEVEL 29 MEQ/L (21-32); CHLORIDE LEVEL 108 MEQ/L (98-107); CK-MB VALUE MASS 1.4 NG/ML (<3.6); CPK CREATINE PHOSPHOKINASE 33 U/L (26-192); CREATININE FOR GFR 1.07 MG/DL (0.55-1.30); GLUCOSE, FASTING 118 MG/DL (70-100); MB/CK RELATIVE INDEX 4.24 (< OR =4); NT-PRO BNP 6569 PG/ML (<450); POTASSIUM SERUM 4.3 MEQ/L (3.5-5.1); SODIUM LEVEL 141 MEQ/L (136-145); TOTAL PROTEIN 7.2 GM/DL (6.4-8.2); TROPONIN I < 0.02 NG/ML (< 0.10)
[2019-06-26] MEDS ORDERED: ISOVUE-370 76% 100ML VIAL (Q9967) As Ordered ONE (13:28)
--- NOTE | 2019-06-26 14:11 | REP ---
Clinical: Hypoxia and shortness of breath. Technique: Axial contrast enhanced images from the thoracic inlet to the upper abdomen with multiplanar and MIP re-formations using pulmonary embolus protocol. 75 ml Isovue 370 intravenous contrast material administered without complication. Findings: Satisfactory enhancement of the pulmonary vasculature is achieved and no filling defects are identified to suggest pulmonary embolus. Thoracic aorta demonstrates atherosclerotic changes without aneurysm or dissection. Cardiomegaly noted with atherosclerotic changes to the coronary arteries. No pericardial effusion. Mild pulmonary vascular congestion along with small pleural effusions and trace basilar atelectasis (right greater than left). Contrast reflux into the hepatic veins suggest underlying cardiac dysfunction. No pneumothorax. Mildly prominent mediastinal and hilar lymph nodes are nonspecific and likely reactive. Musculoskeletal structures demonstrate age-related osteopenia and degenerative changes. Impression: 1. No evidence for pulmonary embolus. 2. Cardiac dysfunction including cardiomegaly with pulmonary vascular congestion, small pleural effusions and mild basilar atelectasis. Electronically Signed by Lan Marcum MD 06/26/2019 02:03 P
[2019-06-26] MEDS ORDERED: TESS100C PO (14:14)
[2019-06-26] MEDS ORDERED: BENZONATATE 100 MG CAP PO ONE (14:15)
[2019-06-26] MEDS ORDERED: FUROSEMIDE 40 MG/4 ML VIAL (J1940) IV ONE (14:30)
--- NOTE | 2019-06-26 16:14 | ECGEPIP ---
[facility] - ED Test Date: 2019-06-26 Pat Name: ALEJANDRO MORE Department: Room: - Gender: Female [employer]: ALLIE : 1935 Requested By: Vernell Roque Order Number: [id number] Reading MD: Vernell Roque Measurements Intervals [place] Rate: 98 P: MA: 0 QRS: -35 QRSD: 113 T: 32 QT: 348 QTc: 446 Interpretive Statements ATRIAL FIBRILLATION MARKED LEFT AXIS DEVIATION VOLTAGE CRITERIA FOR LVH POSSIBLE ANTERIOR MYOCARDIAL INFARCTION, PROBABLY OLD SIMILAR 02/26/19 Electronically Signed on 06-26-2019 16:14:09 EDT by Vernell Roque
[2019-06-26 16:47] VITALS: BP 130/86
== END 2019-06-26 16:49 | disposition home or self-care (01) ==
LOC: M ED 11:15
DX: B34.2 Coronavirus infection, unspecified (principal); I48.91 Unspecified atrial fibrillation; I50.9 Heart failure, unspecified; E07.9 Disorder of thyroid, unspecified; R01.1 Cardiac murmur, unspecified; R60.9 Edema, unspecified; I51.7 Cardiomegaly; J81.0 Acute pulmonary edema; J90 Pleural effusion, not elsewhere classified; J98.11 Atelectasis; Z79.01 Long term (current) use of anticoagulants; Z79.899 Other long term (current) drug therapy; Z88.5 Allergy status to narcotic agent
CPT/HCPCS: 71045; 71275; 80048; 80076; 82550; 82553; 82803; 83880; 84484; 85025; 85610; 87486; 87581; 87633; 87798; 93005; 93041; 96374; 99285; J1940; Q9967

== ENCOUNTER 2019-07-01 10:36 | Inpatient (IN) | payer MEDICARE ==
[~2019-07-01] VITALS: Ht 149.9 cm; Wt 64.6 kg
[~2019-07-01 10:36] MED LIST changes: +TESS100C PO
--- NOTE | 2019-07-01 11:24 | REP ---
CHEST, PORTABLE: AP portable view of the chest is performed and compared to prior study of 06/26/2019 as well as other prior exams. There is cardiomegaly. There is vascular congestion. There is mild diffuse interstitial edema. There is mild focal atelectasis or infiltrate in the left lung base. There is mild calcification and tortuosity of the thoracic aorta. The mediastinal silhouette is unchanged. IMPRESSION: Mild cardiomegaly, congestive heart failure, and interstitial edema. Mild infiltrate/atelectasis left lung base. Electronically Signed by Miky East MD 07/01/2019 12:10 P
[2019-07-01 11:25] LABS: BASO % 0.1 % (0.0-1.0); EOS % 0.3 % (0.0-3.0); HEMATOCRIT 35.9 % (36.0-47.0); HEMOGLOBIN 11.2 g/dl (12.0-15.5); LYMPH # 0.4 10^3/uL (1.5-5.0); LYMPH % 3.2 % (24.0-44.0); MEAN CORPUSCULAR HEMOGLOBIN 30.3 pg (27.0-33.0); MEAN CORPUSCULAR HGB CONC 31.2 g/dl (32.0-36.5); MONO % 8.9 % (0.0-5.0); NEUTROPHILS # 10.1 10^3/uL (1.5-8.5); NEUTROPHILS % 86.9 % (36.0-66.0); PLATELET COUNT, AUTOMATED 116 10^3/uL (150-450); WHITE BLOOD COUNT 11.7 10^3/uL (4.0-10.0)
[2019-07-01 11:59] LABS: ALBUMIN 3.5 GM/DL (3.2-5.2); ALT/SGPT 17 U/L (12-78); BILIRUBIN,DIRECT 0.3 MG/DL (0.0-0.2); BILIRUBIN,TOTAL 0.9 MG/DL (0.2-1.0); BLOOD UREA NITROGEN 25 MG/DL (7-18); CARBON DIOXIDE LEVEL 32 MEQ/L (21-32); CHLORIDE LEVEL 103 MEQ/L (98-107); CK-MB VALUE MASS < 1.0 NG/ML (<3.6); CPK CREATINE PHOSPHOKINASE 30 U/L (26-192); GLOMERULAR FILTRATION RATE 45.6 (>32); GLUCOSE, FASTING 149 MG/DL (70-100); MB/CK RELATIVE INDEX 3.33 (< OR =4); NT-PRO BNP 3730 PG/ML (<450); POTASSIUM SERUM 3.9 MEQ/L (3.5-5.1); SODIUM LEVEL 140 MEQ/L (136-145); TOTAL PROTEIN 7.6 GM/DL (6.4-8.2); TROPONIN I < 0.02 NG/ML (< 0.10)
[2019-07-01] MEDS ORDERED: FUROSEMIDE 40 MG/4 ML VIAL (J1940) IV ONE (12:15)
[2019-07-01] MEDS ORDERED: ACETAMINOPHEN TAB 650MG DOSE (2X325MG) PO PRN (13:00)
[2019-07-01] MEDS ORDERED: MOM 30ML SUSPENSION UDC PO PRN (13:00)
[2019-07-01] MEDS ORDERED: FUROSEMIDE 40 MG/4 ML VIAL (J1940) IV SCH (13:00)
[2019-07-01] MEDS ORDERED: MAALOX 30 ML SUSP *UDC PO PRN (13:00)
--- NOTE | 2019-07-01 13:03 | HPEPDOC ---
[facility] Medical History & Physical Date of Admission Jul 01, 2019 Date of Service: Jul 01, 2019 Primary Care Physician: A Attending Physician: GAGE DOAN MD History and Physical CHIEF COMPLAINT: Cough, SOB HISTORY OF PRESENT ILLNESS: Patient is an 83-year-old female, past medical history significant for CHF, atrial fibrillation, paroxysmal anticoagulated with Eliquis, gout, hypothyroid who presents to the emergency department 6 days after being diagnosed with coronavirus NL63 via PCR for continued shortness of breath, nonproductive cough and generalized fatigue. Throughout the week, patient reports that her symptoms, particularly cough and fatigue have continued to worsen. In the emergency department, patient had a temperature of 100.0, pulse of 90, blood pressure of 128/58, maintaining saturation of 96% on room air. CBC did demonstrate a mild leukocytosis of 11.7. H and H of 11.2/35.9. Folliculitis within normal limits. BUN/CR of 25/1.2. Patient does have chronically elevated BUN. Lactic acid within normal limits. BMP was found to be 3730, significant imp roved from previous measurement 6 days prior of 6569. Chest x-ray indicated chronic disease without acute findings. Hospitalist team was contacted to admit the patient to the medical floor for diuresis and observation. PAST MEDICAL HISTORY: Congestive heart failure Paroxysmal atrial fibrillation, anticoagulation with Eliquis Gout Hypothyroidism GERD PAST SURGICAL HISTORY: Left knee repair Appendectomy SOCIAL HISTORY: Patient is a lifelong nonsmoker Patient denies any alcohol use Patient denies any IV drug use or other illicit substances Patient lives at home, independent at baseline Patient is retired, formerly employed at [employer]. Patient utilizes dentures, glasses and a cane/walker for ambulation. FAMILY HISTORY: Noncontributory and patient's advanced vintage ALLERGIES: Codeine Tramadol REVIEW OF SYSTEMS: CONSTITUTIONAL: Reports intermittent subjective fevers and chills over the last week. Reports generalized fatigue and malaise. Denies any significant changes in weight, though patient does not weigh herself at home. No changes in appetite. HEENT: Denies any headaches, changes in vision, changes in hearing. No difficulty swallowing. CARDIOVASCULAR: Patient does report anterior and posterior chest pain secondary to cough, denies any syncope RESPIRATORY: Reports a one-week history of dry cough, dyspnea on exertion. Denies orthopnea or paroxysmal nocturnal dyspnea GASTROINTESTINAL: No nausea or vomiting, abdominal pain/distention. No recent history of constipation or diarrhea. No melena or hematochezia GENITOURINARY: Denies any problems with urination including frequency, hesitancy, urgency or dysuria. No hematuria. SKIN: Denies any new skin lesions or new rashes. MUSCULOSKELETAL: No joint or muscle aches/pains NEUROLOGICAL: Denies any new numbness or tingling PSYCHIATRIC: Patient does report mild depression secondary to recent passings of close contacts HOME MEDICATIONS: Please see below. PHYSICAL EXAMINATION: VITAL SIGNS: Please see below GENERAL APPEARANCE: Alert and oriented 3, patient is in no acute distress and nontoxic appearing. She is able to speak in full sentences. HEENT: Normocephalic, atraumatic, EOMI, anicteric sclera, dry mucous membranes. No JVD appreciated. CARDIOVASCULAR: Irregular rate and rhythm, systolic ejection murmur at left sternal border, 3 out of 6, which radiates of carotid LUNGS: Bibasilar crackles noted. Otherwise clear to auscultation. Fair air movement was symmetric chest rise. Again, patient is able to speak in full sentences without utilizing any accessory muscles. ABDOMEN: Soft, nontender, nondistended. Organomegaly or other appreciable masses. MUSCULOSKELETAL: Strength 5 out of 54 with normal tone EXTREMITIES: Radial and posterior tibial pulses 2+ bilaterally. 1+ lower extremity pitting edema bilaterally. No calf tenderness. NEUROLOGICAL: Normal speech without any focal deficits, no dysarthria or aphasia PSYCHIATRIC: Mood and affect are appropriate given patient's current clinical condition LABORATORY DATA: See below. IMAGING: CTA chest (06/26/19): No evidence for pulmonary embolus. Cardiac dysfunction including cardio megaly with pulmonary vascular congestion, small pleural effusions and mild basilar atelectasis. Chest x-ray (06/26/19): No focal consolidation or effusion. This x-ray (07/01/19): Mild cardiomegaly, congestive heart failure, interstitial edema. Mild infiltrate/atelectasis in left lung base. MICROBIOLOGY: Respiratory virus panel (06/26/19): Coronavirus NL63 ASSESSMENT: Patient is an 84-year-old female with paroxysmal fibrillation anticoagulated with Eliquis, CHF, hypothyroid, gout who presented to the emergency department with a continued complaint of dry cough, subjective fever/chills and shortness of breath 6 days after being diagnosed with URI with coronavirus NL63 via PCR. Suspect CHF exacerbation, initiated by viral URI. Patient be admitted to the hospital for IV diuresis and continued monitoring. PLAN: #CHF exacerbation, secondary to viral URI * Admission to [facility] with telemetry * IV Lasix 40 mg twice daily, sodium restricted diet, 1500 mL fluid restriction and daily weights. * Patient did receive 2 g of Rocephin in the emergency department. Imaging studies do not indicate any acute infiltrate. Pro-calcitonin/blood cultures remains pending. We'll hold off on antibiotic therapy at this time. * COVID PCR ordered per ED. * Tylenol when necessary for fever/pain. #Paroxysmal atrial fibrillation * Continue with anticoagulation with Eliquis * Rate controlled. Continue flecainide, metoprolol #Chest pain * Suspect secondary to increased cough. Troponins negative. #Depression * Continue with home medications #Gout * Chronic, continue with home allopurinol. #GERD * Continue with home PPI therapy. DVT prophylaxis: Anticoagulated with Eliquis CODE STATUS: DNR/DNI Disposition: Pending clinical improvement, patient may be minimal to discharge tomorrow morning depending on volume status Attending Addendum: I discussed the care and management of this patient with resident in detail and agree with the plan above. Vital Signs Vital Signs Date Time Temp Pulse Resp B/P (MAP) Pulse Ox O2 Delivery O2 Flow Rate FiO2 07/01/19 12:28 100.0 07/01/19 12:00 90 128/58 (81) 100 Nasal Cannula 2.0 07/01/19 10:45 22 Laboratory Data Labs 24H Laboratory Tests 2 07/01/19 11:05: Immature Granulocyte % (Auto) 0.6, Neutrophils (%) (Auto) 86.9H, Lymphocytes (%) (Auto) 3.2L, Monocytes (%) (Auto) 8.9H, Eosinophils (%) (Auto) 0.3, Basophils (%) (Auto) 0.1, Neutrophils # (Auto) 10.1H, Lymphocytes # (Auto) 0.4L, Monocytes # (Auto) 1.0H, Eosinophils # (Auto) 0.0, Basophils # (Auto) 0.0, Nucleated Red Blood Cells % (auto) 0.0, Anion Gap 5L, Glomerular Filtration Rate 45.6, Lactic Acid Level 1.2, Calcium Level 9.0, Total Bilirubin 0.9, Direct Bilirubin 0.3H, Aspartate Amino Transf (AST/SGOT) 14, Alanine Aminotransferase (ALT/SGPT) 17, Alkaline Phosphatase 126H, Total Creatine Kinase 30, Creatine Kinase MB < 1.0, Creatine Kinase MB Relative Index 3.33, Troponin I < 0.02, HO-Tmg-Y-Type Natriuretic Peptide 3730H, Total Protein 7.6, Albumin 3.5, Albumin/Globulin Ratio 0.85L CBC/BMP Laboratory Tests 07/01/19 11:05 Microbiology Microbiology 07/01/19 Blood Culture, Received Pending 07/01/19 Coronavirus COVID-19 PCR ([facility]), Received Pending 07/01/19 Blood Culture, Received Pending Home Medications Scheduled Allopurinol (Allopurinol) 100 Mg Tab, 100 MG PO DAILY Apixaban (Eliquis) 2.5 Mg Tab, 2.5 MG PO BID Benzonatate (Benzonatate) 100 Mg Capsule, 100 MG PO TID Flecainide Acetate (Flecainide Acetate) 50 Mg Tablet, 50 MG PO BID Furosemide (Furosemide) 20 Mg Tablet, 40 MG PO DAILY patient states provider increased to 40mgs on 06/26/19 Irbesartan (Irbesartan) 150 Mg Tablet, 150 MG PO DAILY Levothyroxine Sodium (Levothyroxine Sodium) 50 Mcg Tablet, 50 MCG PO QAM Metoprolol Succinate (Metoprolol Succinate) 100 Mg Tab.er.24h, 100 MG PO BID Pantoprazole Sodium (Pantoprazole Sodium) 40 Mg Tablet.dr, 40 MG PO DAILY Allergies Coded Allergies: codeine (Verified Adverse Reaction, Mild, UPSET STOMACH, 02/25/19) tramadol (Verified Adverse Reaction, Unknown, HEADACHE, 02/25/19) A-FIB/CHADSVASC A-FIB History Current/History of A-Fib/PAF?: Yes Current PO Anticoag Therapy: Yes ZELDA CISNEROS DO Jul 01, 2019 13:03 GAGE DOAN MD Jul 02, 2019 20:33
[2019-07-01 13:12] LABS: PHOSPHORUS LEVEL 3.5 MG/DL (2.5-4.9)
[2019-07-01] MEDS ORDERED: LIDOCAINE 1% SDV 5 ML VIAL DILUENT ONE (13:45)
[2019-07-01] MEDS ORDERED: cefTRIAXone SOD 2 GM VIAL (J0696 PER 250MG) IV ONE (13:45)
[2019-07-01] MEDS ORDERED: BENZ-18 PO (13:59)
[2019-07-01] MEDS ORDERED: IRBE150T7 PO (13:59)
[2019-07-01] MEDS ORDERED: METO1TAB33 PO (13:59)
--- NOTE | 2019-07-01 14:32 | ECGEPIP ---
[facility] - ED Test Date: 2019-07-01 Pat Name: ALEJANDRO MORE Department: Room: - Gender: Female Draw End Hand: JEANNE : 1935 Requested By: Vernell Roque Order Number: [id number] Reading MD: Barrett Kay Measurements Intervals [place] Rate: 108 P: [place]: 0 QRS: -36 QRSD: 110 T: 43 QT: 323 QTc: 435 Interpretive Statements ATRIAL FIBRILLATION WITH RAPID VENTRICULAR RESPONSE LEFT AXIS DEVIATION VOLTAGE CRITERIA FOR LVH POSSIBLE ANTERIOR MYOCARDIAL INFARCTION, PROBABLY OLD SIMILAR TO 06/26/19 Electronically Signed on 07-01-2019 14:32:11 EDT by Barrett Kay
[2019-07-01 15:02] LABS: MAGNESIUM LEVEL 2.2 MG/DL (1.8-2.4)
[2019-07-01 15:26] VITALS: BP 145/91
[2019-07-01] MEDS: BENZONATATE 100 MG CAP PO SCH (20:29)
[2019-07-01] MEDS: APIXABAN 2.5 MG TAB (ELIQUIS) PO SCH (20:30)
[2019-07-01] MEDS: FLECAINIDE 50MG TABLET PO SCH (20:30)
[2019-07-01] MEDS: DOCUSATE SODIUM 100 MG CAP PO SCH (20:31)
[2019-07-01] MEDS: METOPROLOL SUCC (TopROL XL) 100MG *XL* TAB PO SCH (20:31)
[2019-07-01 22:00] VITALS: BP 141/88
[2019-07-01 22:18] VITALS: O2SAT 95
[2019-07-01] MEDS: guaiFENesin SYRUP 200 MG/10 ML UDC PO PRN (23:58)
[2019-07-01] MEDS: FUROSEMIDE 40 MG/4 ML VIAL (J1940) IV SCH (23:59)
[2019-07-02] MEDS: guaiFENesin SYRUP 200 MG/10 ML UDC PO PRN ×2 (04:42→09:32)
[2019-07-02 06:00] VITALS: BP 101/67
[2019-07-02] MEDS ORDERED: LEVOTHYROXINE 50MCG TABLET (0.05MG) PO SCH (06:00)
[2019-07-02 06:33] LABS: HEMATOCRIT 32.5 % (36.0-47.0); HEMOGLOBIN 10.1 g/dl (12.0-15.5); MEAN CORPUSCULAR HEMOGLOBIN 29.7 pg (27.0-33.0); MEAN CORPUSCULAR HGB CONC 31.1 g/dl (32.0-36.5); MEAN CORPUSCULAR VOLUME 95.6 fl (80.0-96.0); WHITE BLOOD COUNT 9.1 10^3/uL (4.0-10.0)
[2019-07-02 06:34] LABS: PLATELET COUNT, AUTOMATED 98 10^3/uL (150-450)
[2019-07-02 06:52] LABS: ALBUMIN 2.9 GM/DL (3.2-5.2); BILIRUBIN,TOTAL 0.9 MG/DL (0.2-1.0); CALCIUM LEVEL 8.6 MG/DL (8.8-10.2); CREATININE FOR GFR 1.29 MG/DL (0.55-1.30); GLOMERULAR FILTRATION RATE 41.9 (>32); MAGNESIUM LEVEL 2.1 MG/DL (1.8-2.4); POTASSIUM SERUM 3.8 MEQ/L (3.5-5.1); TOTAL PROTEIN 6.3 GM/DL (6.4-8.2)
[2019-07-02 09:00] VITALS: O2SAT 94
[2019-07-02] MEDS ORDERED: IRBESARTAN 150 MG TAB PO SCH (09:00)
[2019-07-02] MEDS ORDERED: PANTOPRAZOLE 40MG TAB (PROTONIX) PO SCH (09:00)
[2019-07-02] MEDS ORDERED: allopurinoL 100 MG TAB PO SCH (09:00)
[2019-07-02] MEDS: BENZONATATE 100 MG CAP PO SCH (09:32)
[2019-07-02] MEDS: FLECAINIDE 50MG TABLET PO SCH (09:33)
[2019-07-02] MEDS: DOCUSATE SODIUM 100 MG CAP PO SCH (09:33)
[2019-07-02] MEDS: METOPROLOL SUCC (TopROL XL) 100MG *XL* TAB PO SCH (09:33)
[2019-07-02] MEDS: APIXABAN 2.5 MG TAB (ELIQUIS) PO SCH (09:33)
--- NOTE | 2019-07-02 10:30 | DS.PDOC ---
Discharge Summary General Date of Admission Jul 01, 2019 at 13:52 Date of Discharge Jul 02, 2019 Primary Care Physician: A Attending Physician: GAGE DOAN MD Discharge Summary PROCEDURES PERFORMED DURING STAY: None ADMITTING DIAGNOSES: CHF exacerbation, 2/2 to viral URI. Paroxysmal atrial fibrillation Chest pain Depression Gout GERD DISCHARGE DIAGNOSES: CHF exacerbation, 2/2 to viral URI Paroxysmal atrial fibrillation Depression Gout GERD COMPLICATIONS/CHIEF COMPLAINT: Atrial Fibrillation, CHF, Viral URI, With Cough. HISTORY OF PRESENT ILLNESS: Patient is an 83-year-old female, past medical history significant for CHF, atrial fibrillation, paroxysmal anticoagulated with Eliquis, gout, hypothyroid who presents to the emergency department 6 days after being diagnosed with coronavirus NL63 via PCR for continued shortness of breath, nonproductive cough and generalized fatigue. Throughout the week, patient reports that her symptoms, particularly cough and fatigue have continued to worsen. In the emergency department, patient had a temperature of 100.0, pulse of 90, blood pressure of 128/58, maintaining saturation of 96% on room air. CBC did demonstrate a mild leukocytosis of 11.7. H and H of 11.2/35.9. electrolytes within normal limits. BUN/CR of 25/1.2. Patient does have chronically elevated BUN. Lactic acid within normal limits. BMP was found to be 3730, significant improved from previous measurement 6 days prior of 6569. Chest x-ray indicated chronic disease without acute findings. Hospitalist team was contacted to admit the patient to the medical floor for diuresis and observation. HOSPITAL COURSE: Patient was admitted to the hospital and treated with 40 mg IV Lasix BID. Overnight patient put out just under a liter of fluid. Upon re-evaluation on the morning of discharge, patient was maintaining oxygen saturation of 97 % on RA and afebrile. Her a-fib continues to be rate controlled and normotensive. Lungs were clear to auscultation bilaterally without crackles. Subjectively, patient reports significant improvement in her symptoms and desire to return home. Discharge plan, including home quarantine and close PCP follow-up discussed. Pt verbalized understanding and agreement with discharge plan. DISCHARGE MEDICATIONS: Please see below. ALLERGIES: Please see below. PHYSICAL EXAMINATION ON DISCHARGE: VITAL SIGNS: Please see below. GENERAL APPEARANCE: Alert and oriented 3, patient is in no acute distress and nontoxic appearing. She is able to speak in full sentences. HEENT: Normocephalic, atraumatic, EOMI, anicteric sclera, dry mucous membranes. No JVD appreciated. CARDIOVASCULAR: Irregular rate and rhythm, systolic ejection murmur at left sternal border, 3 out of 6, which radiates towards the carotid. LUNGS: CTA B/L Fair air movement was symmetric chest rise. Again, patient is able to speak in full sentences without utilizing any accessory muscles. ABDOMEN: Soft, nontender, nondistended. Organomegaly or other appreciable masses. MUSCULOSKELETAL: Strength 5 out of 54 with normal tone EXTREMITIES: Radial and posterior tibial pulses 2+ bilaterally. 1+ lower extremity pitting edema bilaterally. No calf tenderness. NEUROLOGICAL: Normal speech without any focal deficits, no dysarthria or aphasia PSYCHIATRIC: Mood and affect are appropriate given patient's current clinical condition LABORATORY DATA: Please see below. IMAGING: CTA chest (06/26/19): No evidence for pulmonary embolus. Cardiac dysfunction including cardio megaly with pulmonary vascular congestion, small pleural effu sions and mild basilar atelectasis. Chest x-ray (06/26/19): No focal consolidation or effusion. This x-ray (07/01/19): Mild cardiomegaly, congestive heart failure, interstitial edema. Mild infiltrate/atelectasis in left lung base. PROGNOSIS: Fair ACTIVITY: As tolerated DIET: Continue 2 gram sodium restriction. DISCHARGE PLAN: Home with self-care. Please self-quarantine for 14 days. Please follow-up with PCP for telephone visit. Please return to the ED should your symptoms worsen or fail to improve. Thank you for allowing us to participate in your care. ITEMS TO FOLLOWUP ON ON OUTPATIENT: Please take your medications as prescribed. DISCHARGE CONDITION: Stable TIME SPENT ON DISCHARGE: Greater than 35 minutes. Vital Signs/I&Os Vital Signs Date Time Temp Pulse Resp B/P (MAP) Pulse Ox O2 Delivery O2 Flow Rate FiO2 07/02/19 09:33 90 101/67 07/02/19 06:00 98.0 20 97 Room Air 07/01/19 12:00 2.0 I&O- Last 24 Hours up to 6 AM 07/02/19 06:00 Intake Total 390 ml Output Total 825 ml Balance -435 ml Laboratory Data Labs 24H Laboratory Tests 2 07/01/19 11:05: Immature Granulocyte % (Auto) 0.6, Neutrophils (%) (Auto) 86.9H, Lymphocytes (%) (Auto) 3.2L, Monocytes (%) (Auto) 8.9H, Eosinophils (%) (Auto) 0.3, Basophils (% ) (Auto) 0.1, Neutrophils # (Auto) 10.1H, Lymphocytes # (Auto) 0.4L, Monocytes # (Auto) 1.0H, Eosinophils # (Auto) 0.0, Basophils # (Auto) 0.0, Nucleated Red Blood Cells % (auto) 0.0, Anion Gap 5L, Glomerular Filtration Rate 45.6, Lactic Acid Level 1.2, Calcium Level 9.0, Phosphorus Level 3.5, Magnesium Level 2.2, Total Bilirubin 0.9, Direct Bilirubin 0.3H, Aspartate Amino Transf (AST/SGOT) 14, Alanine Aminotransferase (ALT/SGPT) 17, Alkaline Phosphatase 126H, Total Creatine Kinase 30, Creatine Kinase MB < 1.0, Creatine Kinase MB Relative Index 3.33, Troponin I < 0.02, EV-Tqq-H-Type Natriuretic Peptide 3730H, Total Protein 7.6, Albumin 3.5, Albumin/Globulin Ratio 0.85L 07/02/19 06:01: Nucleated Red Blood Cells % (auto) 0.0, Anion Gap 8, Glomerular Filtration Rate 41.9, Calcium Level 8.6L, Magnesium Level 2.1, Total Bilirubin 0.9, Aspartate Amino Transf (AST/SGOT) 13, Alanine Aminotransferase (ALT/SGPT) 12, Alkaline Phosphatase 107, Total Protein 6.3L, Albumin 2.9L, Albumin/Globulin Ratio 0.85L, Immature Platelet Fraction 15.3H CBC/BMP Laboratory Tests 07/01/19 11:05 07/02/19 06:01 Microbiology Microbiology 07/01/19 Respiratory Virus Panel (PCR) ([facility]) - Final, Complete Coronavirus Nl63 07/01/19 Blood Culture, Received Pending 07/01/19 Coronavirus COVID-19 PCR ([facility]), Received Pending 07/01/19 Blood Culture, Received Pending Discharge Medications Scheduled Allopurinol (Allopurinol) 100 Mg Tab, 100 MG PO DAILY, (Reported) Apixaban (Eliquis) 2.5 Mg Tab, 2.5 MG PO BID, (Reported) Benzonatate (Benzonatate) 100 Mg Capsule, 100 MG PO TID, (Reported) Flecainide Acetate (Flecainide Acetate) 50 Mg Tablet, 50 MG PO BID, (Reported) Furosemide (Furosemide) 20 Mg Tablet, 40 MG PO DAILY, (Reported) patient states provider increased to 40mgs on 06/26/19 Irbesartan (Irbesartan) 150 Mg Tablet, 150 MG PO DAILY, (Reported) Levothyroxine Sodium (Levothyroxine Sodium) 50 Mcg Tablet, 50 MCG PO QAM, (Reported) Metoprolol Succinate (Metoprolol Succinate) 100 Mg Tab.er.24h, 100 MG PO BID, (Reported) Pantoprazole Sodium (Pantoprazole Sodium) 40 Mg Tablet.dr, 40 MG PO DAILY, (Reported) Allergies Coded Allergies: codeine (Verified Adverse Reaction, Mild, UPSET STOMACH, 02/25/19) tramadol (Verified Adverse Reaction, Unknown, HEADACHE, 02/25/19) ZELDA CISNEROS DO Jul 02, 2019 10:30
[2019-07-02 11:32] VITALS: BP 101/67
[2019-07-02] MEDS: FUROSEMIDE 40 MG/4 ML VIAL (J1940) IV SCH (12:00)
== END 2019-07-02 12:31 | disposition home or self-care (01) | DRG 293 ==
LOC: M ED 10:36 → M ED INP 13:52 → ENRESERVTM 14:24 → ENRESERVDT 14:24 → M MSPAV 14:45
PROVIDERS: ADMIT Internal Medicine; ATTEND Internal Medicine
DX: I50.9 Heart failure, unspecified (principal); J06.9 Acute upper respiratory infection, unspecified; B97.29 Other coronavirus as the cause of diseases classified elsewhere; I48.0 Paroxysmal atrial fibrillation; F32.9 Major depressive disorder, single episode, unspecified; M10.9 Gout, unspecified; K21.9 Gastro-esophageal reflux disease without esophagitis; Z66 Do not resuscitate; E03.9 Hypothyroidism, unspecified; Z90.49 Acquired absence of other specified parts of digestive tract; Z88.5 Allergy status to narcotic agent; Z79.01 Long term (current) use of anticoagulants; Z79.899 Other long term (current) drug therapy

== ENCOUNTER → 2019-10-17 | Outpatient (CLI) | payer SELFPAY ==
[~2019-10-17] MED LIST changes: +AMLO1TAB24 PO; -AMLO5TAB6 PO; +BENZ-18 PO; +METO1TAB33 PO; +PANT40TA29 PO; -PANT40TA3 PO
== END ==
LOC: M LABSMTC 12:32
PROVIDERS: ATTEND Pediatrics
DX: Z20.828 Contact with and (suspected) exposure to other viral communicable diseases (principal); Z11.59 Encounter for screening for other viral diseases

== ENCOUNTER → 2020-05-28 | Outpatient (CLI) | payer MEDICARE ==
[2020-05-28 17:55] LABS: HEMOGLOBIN 11.4 g/dl (12.0-15.5); MEAN CORPUSCULAR VOLUME 93.4 fl (80.0-96.0); PLATELET COUNT, AUTOMATED 100 10^3/uL (150-450); RED BLOOD COUNT 4.07 10^6/uL (4.00-5.40); WHITE BLOOD COUNT 5.7 10^3/uL (4.0-10.0)
[2020-05-28 18:34] LABS: ALBUMIN 3.7 GM/DL (3.2-5.2); BILIRUBIN,TOTAL 0.7 MG/DL (0.2-1.0); CREATININE FOR GFR 1.04 MG/DL (0.55-1.30); FREE T3 1.8 PG/ML (2.2-4.0); FREE T4 1.28 NG/DL (0.76-1.46); GLOMERULAR FILTRATION RATE 53.6 (>32); POTASSIUM SERUM 3.8 MEQ/L (3.5-5.1); THYROID STIMULATING HORMONE 6.83 uIU/ML (0.358-3.740); TOTAL PROTEIN 7.2 GM/DL (6.4-8.2)
== END ==
LOC: M WUC 11:00
PROVIDERS: ATTEND Family Medicine
DX: E03.9 Hypothyroidism, unspecified (principal); I50.30 Unspecified diastolic (congestive) heart failure

== ENCOUNTER 2020-06-03 13:49 | Emergency (ER) | payer MEDICARE ==
[~2020-06-03] VITALS: Ht 149.9 cm; Wt 68.9 kg
--- NOTE | 2020-06-03 14:12 | REP ---
INDICATION: head inj on thinners COMPARISON: 02/27/2019 TECHNIQUE: Axial noncontrast images from the skull base to the thoracic inlet with coronal reformations. This CT examination was performed using the following dose reduction techniques: Automated exposure control, adjustment of mA and/or kv according to the patient's size, and use of iterative reconstruction technique. FINDINGS: Age-related atrophy and microvascular ischemic changes are appreciated. The ventricles and sulci are symmetric. East-white differentiation is maintained. There is no evidence for acute intracranial hemorrhage, mass/mass effect, pathology or infarction. No extra-axial fluid collection. Calvarium is intact. Paranasal sinuses and mastoid air cells are clear. Small left scalp laceration. IMPRESSION: Age related atrophy and microvascular ischemic changes. No acute intracranial hemorrhage, infarction, or mass/mass effect. <Electronically signed by Lan Marcum > 06/03/20 [id number]
--- NOTE | 2020-06-03 14:56 | REP ---
INDICATION: right cheek COMPARISON: None. TECHNIQUE: Axial noncontrast images through the facial bones to include the mandible with coronal and sagittal re-formations. FINDINGS: The osseous structures are intact and there is no evidence for fracture or dislocation. Specifically, the bilateral zygomatic arches, nasal bones, and mandible including bilateral temporomandibular joints appear normal and symmetric. The sinuses and mastoid air cells are all well aerated and clear without fluid level to suggest occult trauma. The bilateral orbits including the globes and intraconal contents appear symmetric and normal. The surrounding soft tissues are grossly unremarkable. IMPRESSION: Normal maxillofacial CT. No evidence for acute pathology or trauma/injury. <Electronically signed by Lan Marcum > 06/03/20 [id number]
--- NOTE | 2020-06-03 14:59 | REP ---
INDICATION: fall COMPARISON: 07/29/2015 TECHNIQUE: Axial noncontrast images from the skull base to the thoracic inlet with coronal and sagittal re-formations This CT examination was performed using the following dose reduction techniques: Automated exposure control, adjustment of mA and/or kv according to the patient's size, and use of iterative reconstruction technique. FINDINGS: Generalized age-related osteopenia and advanced multilevel degenerative changes are appreciated. Findings include osteophytosis, endplate sclerosis, disc space narrowing and hypertrophic facet changes along with chronic progressive grade 1 anterolisthesis at the C4-5 level of approximately 3.2 mm which is increased from 2016. There is no evidence for acute fracture/compression injury or subluxation. Posterior elements and spinous processes are intact. Paravertebral soft tissues are normal. IMPRESSION: 1. Osteopenia and advanced multilevel degenerative changes including chronic grade 1 anterolisthesis at the C4-5 level. 2. No acute fracture/compression injury or acute subluxation. <Electronically signed by Lan Marcum > 06/03/20 [id number]
[2020-06-03 15:45] VITALS: BP 148/77
== END 2020-06-03 15:50 | disposition home or self-care (01) ==
LOC: M ED 13:49
DX: S00.83XA Contusion of other part of head, initial encounter (principal); W07.XXXA Fall from chair, initial encounter; J44.9 Chronic obstructive pulmonary disease, unspecified; I11.9 Hypertensive heart disease without heart failure; M10.9 Gout, unspecified; Z79.01 Long term (current) use of anticoagulants; Z79.899 Other long term (current) drug therapy; Z88.6 Allergy status to analgesic agent; Y92.9 Unspecified place or not applicable; Y93.9 Activity, unspecified; Y99.9 Unspecified external cause status

== ENCOUNTER 2020-07-03 08:45 | Emergency (ER) | payer MEDICARE ==
[~2020-07-03] VITALS: Ht 149.9 cm; Wt 70.5 kg
--- NOTE | 2020-07-03 10:09 | REP ---
INDICATION: red painful area lat leg COMPARISON: None. TECHNIQUE: AP and lateral views of the left tibia/fibula. FINDINGS: Evidence for prior knee arthroplasty. The tibial component demonstrates outlining cement and lucency as opposed to the normal metallic tibial component usually appreciated by radiographic evaluation. Correlation is recommended. Associated degenerative changes at the knee and vascular calcifications are identified. The tibial and fibular diaphyses demonstrate mild age-related osteopenia and no evidence for acute/subacute fracture. The overlying soft tissues are relatively normal and without subcutaneous emphysema or foreign body. Degenerative changes at the ankle are suspected. IMPRESSION: 1. Somewhat unusual appearance to knee replacement as described above (there may have been previous removal of the tibial component or usage of a nonmetallic, radiolucent tibial prosthetic). 2. Within the area of pain and overlying erythema at the mid calf level, there is no evidence for acute injury. <Electronically signed by Lan Marcum > 07/03/20 [id number]
[2020-07-03 10:23] LABS: HEMATOCRIT 34.8 % (36.0-47.0); HEMOGLOBIN 10.3 g/dl (12.0-15.5); MEAN CORPUSCULAR HEMOGLOBIN 27.8 pg (27.0-33.0); MEAN CORPUSCULAR HGB CONC 29.6 g/dl (32.0-36.5); MEAN CORPUSCULAR VOLUME 94.1 fl (80.0-96.0); PLATELET COUNT, AUTOMATED 116 10^3/uL (150-450); WHITE BLOOD COUNT 6.6 10^3/uL (4.0-10.0)
[2020-07-03 10:39] LABS: INR 1.15; PROTHROMBIN TIME 14.9 SECONDS (12.5-14.3)
[2020-07-03 10:40] LABS: PARTIAL THROMBOPLASTIN TIME 36.2 SECONDS (24.2-38.5)
[2020-07-03 10:57] LABS: ATYPICAL LYMPH 5 % (0-5); BASOPHILS 1 % (0-1); LYMPHOCYTES 7 % (16-44); MONOCYTES 13 % (0-5); NEUTROPHILS 72 % (28-66); PLATELET ESTIMATE DECREASED (NORMAL)
[2020-07-03 10:58] LABS: ANISOCYTOSIS 1+; HYPOCHROMASIA 1+; POIKILOCYTOSIS 1+; TOXIC VACUOLATION 1+
[2020-07-03 10:59] LABS: ERYTHROCYTE SEDIMENTATION RATE 36 mm/hr (0-30)
[2020-07-03 11:22] VITALS: BP 165/83
== END 2020-07-03 11:24 | disposition home or self-care (01) ==
LOC: M ED 08:45
DX: R23.3 Spontaneous ecchymoses (principal); D69.6 Thrombocytopenia, unspecified; R06.02 Shortness of breath; I48.91 Unspecified atrial fibrillation; I11.0 Hypertensive heart disease with heart failure; I50.9 Heart failure, unspecified; J44.9 Chronic obstructive pulmonary disease, unspecified; Z79.01 Long term (current) use of anticoagulants; Z88.5 Allergy status to narcotic agent

== ENCOUNTER → 2020-08-02 | Outpatient (CLI) | payer MEDICARE ==
[2020-08-02 16:39] LABS: FREE T4 1.8 NG/DL (0.76-1.46); THYROID STIMULATING HORMONE 2.94 uIU/ML (0.358-3.740)
== END ==
LOC: M WUC 14:32
PROVIDERS: ATTEND Family Medicine
DX: E03.9 Hypothyroidism, unspecified (principal)

== ENCOUNTER 2020-08-06 10:14 | Inpatient (IN) | payer MEDICARE ==
[~2020-08-06] VITALS: Ht 157.5 cm; Wt 72.7 kg
[2020-08-06] MEDS ORDERED: FURO20TA2 PO (10:39)
[2020-08-06] MEDS ORDERED: LEVO75TA4 PO (10:39)
[2020-08-06 10:46] LABS: HEMATOCRIT 32.7 % (36.0-47.0); HEMOGLOBIN 9.8 g/dl (12.0-15.5); MEAN CORPUSCULAR HEMOGLOBIN 27.8 pg (27.0-33.0); MEAN CORPUSCULAR VOLUME 92.6 fl (80.0-96.0); PLATELET COUNT, AUTOMATED 101 10^3/uL (150-450); RED BLOOD COUNT 3.53 10^6/uL (4.00-5.40); WHITE BLOOD COUNT 8.4 10^3/uL (4.0-10.0)
--- NOTE | 2020-08-06 10:48 | REP ---
INDICATION: CHEST PAIN. COMPARISON: 07/01/2019 as well as other prior exams. TECHNIQUE: Single portable AP view of the chest was performed. FINDINGS: Cardiomegaly is unchanged. There is calcification of the thoracic aorta. The mediastinal silhouette is unchanged. There is mild diffuse chronic interstitial prominence which appears stable. There is no acute infiltrate. IMPRESSION: No acute pulmonary disease.Stable cardiomegaly. <Electronically signed by Miky East > 08/06/20 [id number]
[2020-08-06 11:08] LABS: EOSINOPHILS 2 % (0-3); LYMPHOCYTES 3 % (16-44); METAMYELOCYTES 3 % (0-0); MONOCYTES 3 % (0-5); NEUTROPHILS 82 % (28-66)
[2020-08-06 11:09] LABS: ANISOCYTOSIS 2+; HYPOCHROMASIA 1+; PLATELET ESTIMATE DECREASED (NORMAL)
[2020-08-06 11:11] LABS: INR 1.34; PARTIAL THROMBOPLASTIN TIME 37.7 SECONDS (24.2-38.5); PROTHROMBIN TIME 16.9 SECONDS (12.5-14.3)
[2020-08-06 11:14] LABS: D-DIMER QUANT 1038.39 ng/ml (<500)
--- NOTE | 2020-08-06 11:24 | REP ---
INDICATION: edema r/o dvt. COMPARISON: None. TECHNIQUE: Multiple ultrasonographic images of the deep venous structures of the bilateral thigh were obtained from the common femoral vein to the popliteal vein along with Doppler interrogation and color flow Doppler images. FINDINGS: There is no abnormal echogenic material seen within any of the visualized deep venous structures that would suggest acute thrombosis. Coaptation is unremarkable throughout. Doppler interrogation shows an expected response to respiratory variability and augmentation. The color flow images show what appears to be a normal vascular pattern throughout. IMPRESSION: There is no ultrasonographic evidence of deep venous thrombosis involving any of the visualized deep venous structures of the bilateral thigh, as described above. <Electronically signed by Rich Taveras > 08/06/20 [id number]
[2020-08-06 11:25] LABS: ALBUMIN 3.6 GM/DL (3.2-5.2); ALT/SGPT 19 U/L (12-78); BILIRUBIN,DIRECT 0.5 MG/DL (0.0-0.2); BILIRUBIN,TOTAL 1.3 MG/DL (0.2-1.0); BLOOD UREA NITROGEN 26 MG/DL (7-18); CALCIUM LEVEL 9.2 MG/DL (8.8-10.2); CARBON DIOXIDE LEVEL 27 MEQ/L (21-32); CHLORIDE LEVEL 108 MEQ/L (98-107); CK-MB VALUE MASS 1.3 NG/ML (<3.6); CPK CREATINE PHOSPHOKINASE 35 U/L (26-192); CREATININE FOR GFR 1.18 MG/DL (0.55-1.30); FREE T4 1.69 NG/DL (0.76-1.46); GLOMERULAR FILTRATION RATE 46.3 (>32); GLUCOSE, FASTING 109 MG/DL (70-100); MB/CK RELATIVE INDEX 3.71 (< OR =4); NT-PRO BNP 8602 PG/ML (<450); SODIUM LEVEL 139 MEQ/L (136-145); TOTAL PROTEIN 6.7 GM/DL (6.4-8.2); TROPONIN I < 0.02 NG/ML (< 0.10)
[2020-08-06] MEDS ORDERED: ISOVUE-370 76% 100ML VIAL As Ordered ONE (11:55)
--- NOTE | 2020-08-06 12:33 | REP ---
INDICATION: SOB, leg edema COMPARISON: 06/26/2019 TECHNIQUE: CT angiography attention pulmonary arteries after the intravenous administration of 75 cc Isovue 370. FINDINGS: There is excellent visualization of the pulmonary arterial vasculature. No focal filling defects are present that would be considered consistent with acute pulmonary emboli. There are tiny bilateral pleural effusions. There is no pericardial effusion. Once again, note is made of four-chamber cardiac enlargement. There is no evidence of mediastinal or hilar adenopathy. There is no significant change in appearance of the imaged osseous structures. There is no significant change in appearance of the imaged upper abdomen. Note is again made of a hiatal hernia along with incidental hepatic and splenic calcifications. Evaluation of the lung jaime shows a mosaic type pattern of ground-glass opacities which is essentially unchanged possibly increased slightly from the prior exam when the technical differences between the examinations are taken into consideration. The degree of inspiration today is less than on the prior exam. No new definite abnormal nodules have developed. IMPRESSION: 1. There is no evidence of a pulmonary embolus. 2. Chronic fibrotic lung field changes are suspected with subsegmental atelectasis. 3. Tiny chronic pleural effusions. 4. Other findings as described above. <Electronically signed by Rich Taveras > 08/06/20 0626
[2020-08-06] MEDS ORDERED: FUROSEMIDE 40MG/4ML VIAL (J1940) IV ONE (12:50)
[2020-08-06] MEDS ORDERED: MOM 30ML SUSPENSION UDC PO PRN (13:30)
[2020-08-06] MEDS ORDERED: ACETAMINOPHEN TAB 650MG DOSE (2X325MG) PO PRN (13:30)
--- NOTE | 2020-08-06 13:48 | HPEPDOC ---
[facility] Medical History & Physical Date of Admission August 06, 2020 Date of Service: August 06, 2020 History and Physical Chief complaint: Who presents to the emergency room with complaints of short of breath History of present illness: Patient is an 84-year-old female who presented to the emergency room with complaints of shortness of breath. She was sent emergency room by her primary care provider, Vaughn Hopkins. Upon arrival to primary cares office, patient had reported shortness of breath and LE swelling. Currently patient reports shortness of breath with exertion. Denies any shortness of breath with rest. Patient reports a chronic cough with yellow sputum over the last 5 years. Patient denies any chest pain or palpitations. Has not experience any nausea, vomiting, abdominal pain consultation, diarrhea, or urinary discomfort. Patient reports her last bowel movement was Thursday. Denies any recent fevers, chills. Patient reports that at night she sleeps on her right side and wakes up 2-3 times a day because of shortness of breath. Reports that her lower extremity swelling has worsened over the last 1 month. At baseline, patient uses a walker and/or cane to ambulate. 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 Review of Systems: 10 point review of systems complete, all negative otherwise stated in HPI Physical exam: - Vitals: BP [145/83], HR [100], RR [20], Sat [91%RA], Temp [98.1F] - General: Lying in bed, No acute distress, Speaking in full sentences, AAOx3 - HEENT: NC, AT, PERRLA - CVS: IrIr, +S1S2 - Lungs: Fair air entry bilaterally, No appreciable wheezing / rhonchi; bilateral crackles at lung bases - Abdomen: Soft, Non-distended, Non-tender - Extremities: 2+ pitting edema extending up to thigh, No calf tenderness - Neuro: No focal motor or sensory deficit - Skin: No visible rashes Labs: See below Imaging: CXR 5/10: No acute pulmonary disease. Stable cardiomegaly. Vascular US 08/06; There is no ultrasonographic evidence of deep venous thrombosis involving any of the visualized deep venous structures of the bilateral thigh, as described above. CTA chest 08/06: 1. There is no evidence of a pulmonary embolus. 2. Chronic fibrotic lung field changes are suspected with subsegmental atelectasis. 3. Tiny chronic pleural effusions. 4. Other findings as described above. EKG: See below Assessment and Plan: Shortness of breath - likely 2/2 decompensated acute on chronic systolic CHF - Presented to ER from PCP office for shortness of breath with exertion and lower extremity swelling - Patient has reported recent worsening of lower extremity swelling - Physical with evidence of 2+ pitting edema of bilateral lower extremities and crackles at bilateral lung bases - BNP elevated compared to baseline - Imaging reviewed - ECHO 02/26/2019: Ejection fraction 40% - s/p Furosemide 40 in ER - Will monitor strict ins/outs, daily weights, fluid restrictions - Will repeat ECHO / Telemetry monitoring / Troponin trend Chronic thrombocytopenia - Appears to date back to 2011 - No evidence of bleeding - Will check hepatitis profile - Will continue to trend HTN - Blood pressure is well controlled - Will continue irbesartan / metoprolol Paroxysmal atrial fibrillation - EKG reviewed, does reveal rate controlled atrial fibrillation - Continue with rate/rhythm control with metoprolol and flecainide - Continue with full anticoagulation with Eliquis Hypothyroidism - c/w Levothyroxine DVT prophylaxis - Will continue with full anticoagulation Code status: - DNR / DNI Vital Signs Vital Signs Date Time Temp Pulse Resp B/P (MAP) Pulse Ox O2 Delivery O2 Flow Rate FiO2 08/06/20 13:15 100 20 91 Room Air 08/06/20 13:00 145/83 (103) 08/06/20 10:44 98.1 Laboratory Data Labs 24H Laboratory Tests 2 08/06/20 10:29: Neutrophils (%) (Auto) , Nucleated Red Blood Cells % (auto) 0.0, Neutrophils 82H, Band Neutrophils 7, Lymphocytes (Manual) 3L, Monocytes (Manual) 3, Eosinophils (Manual) 2, Metamyelocytes 3H, Hypochromasia 1+, Anisocytosis 2+, Macrocytosis 1+, Platelet Estimate DECREASED, Prothrombin Time 16.9H, Prothromb Time International Ratio 1.34, Activated Partial Thromboplast Time 37.7, D- Dimer, Quantitative 1038.39H, Anion Gap 4L, Glomerular Filtration Rate 46.3, Calcium Level 9.2, Total Bilirubin 1.3H, Direct Bilirubin 0.5H, Aspartate Amino Transf (AST/SGOT) 21, Alanine Aminotransferase (ALT/SGPT) 19, Alkaline Phosphatase 120H, Total Creatine Kinase 35, Creatine Kinase MB 1.3, Creatine Kinase MB Relative Index 3.71, Troponin I < 0.02, BZ-Nqi-H-Type Natriuretic Peptide 8602H, Total Protein 6.7, Albumin 3.6, Albumin/Globulin Ratio 1.2, Thy roid Stimulating Hormone (TSH) 3.320, Free Thyroxine 1.69H CBC/BMP Laboratory Tests 08/06/20 10:29 Microbiology Microbiology 08/06/20 Respiratory Virus Panel (PCR) ([facility]) - Final, Complete Home Medications Scheduled Apixaban (Eliquis) 2.5 Mg Tab, 2.5 MG PO BID Flecainide Acetate (Flecainide Acetate) 50 Mg Tablet, 50 MG PO BID Furosemide (Furosemide) 20 Mg Tablet, 20 MG PO DAILY Irbesartan (Irbesartan) 150 Mg Tablet, 150 MG PO DAILY Levothyroxine Sodium (Levothyroxine Sodium) 75 Mcg Tablet, 75 MCG PO DAILY Metoprolol Succinate (Metoprolol Succinate) 100 Mg Tab.er.24h, 100 MG PO DAILY Allergies Coded Allergies: codeine (Verified Adverse Reaction, Mild, UPSET STOMACH, 07/03/20) tramadol (Verified Adverse Reaction, Mild, HEADACHE, 07/03/20) LESTER HARRIS MD August 06, 2020 13:48
[2020-08-06 15:10] VITALS: BP 138/78
[2020-08-06] MEDS: METOPROLOL SUCC (TopROL XL) 100MG *XL* TAB PO SCH (15:52)
[2020-08-06] MEDS: IRBESARTAN 150MG TAB PO SCH (15:52)
[2020-08-06 16:40] LABS: CK-MB VALUE MASS 1.9 NG/ML (<3.6); CPK CREATINE PHOSPHOKINASE 40 U/L (26-192); MB/CK RELATIVE INDEX 4.75 (< OR =4); TROPONIN I < 0.02 NG/ML (< 0.10)
[2020-08-06] MEDS ORDERED: SLF 3 ML SYR IV PRN (16:40)
[2020-08-06 17:03] VITALS: BP 136/76
[2020-08-06 17:27] LABS: HEPATITIS A ANTIBODY IGM NEGATIVE (NEGATIVE); HEPATITIS B CORE ANTIBODY IGM NEGATIVE (NEGATIVE); HEPATITIS B SURFACE ANTIGEN NEGATIVE (NEGATIVE)
--- NOTE | 2020-08-06 20:08 | ECGEPIP ---
[facility] - ED Test Date: 2020-08-06 Pat Name: ALEJANDRO MORE Department: Room: - Gender: Female Documentum Consultant: CLARK : [id number] Requested By: FRANCESCA Zhou Order Number: [id number] Reading MD: Vernell Roque Measurements Intervals [place] Rate: 100 P: [place]: QRS: -40 QRSD: 110 T: 41 QT: 350 QTc: 451 Interpretive Statements Atrial fibrillation Left axis deviation delayed r progression Moderate voltage criteria for LVH, may be normal variant ( R in aVL , Reji product ) similar 06/30/09 Electronically Signed on 08-06-2020 20:08:07 EDT by Vernell Roque
[2020-08-06] MEDS: FLECAINIDE 50MG TABLET PO SCH (20:34)
[2020-08-06] MEDS: APIXABAN 2.5 MG TAB (ELIQUIS) PO SCH (20:34)
[2020-08-06 21:22] VITALS: BP 145/64
[2020-08-06] MEDS: SLF 3 ML SYR IV SCH (22:21)
[2020-08-06 22:27] LABS: CK-MB VALUE MASS 1.2 NG/ML (<3.6); CPK CREATINE PHOSPHOKINASE 34 U/L (26-192); MB/CK RELATIVE INDEX 3.53 (< OR =4); TROPONIN I < 0.02 NG/ML (< 0.10)
[2020-08-07] VITALS (7 sets, daily range): BP systolic 123–165; BP diastolic 59–79
[2020-08-07] MEDS: LEVOTHYROXINE 75MCG TABLET (0.075MG) PO SCH (05:31)
[2020-08-07] MEDS: SLF 3 ML SYR IV SCH ×3 (05:32→21:10)
[2020-08-07 05:55] LABS: BASO % 0.2 % (0.0-1.0); EOS % 0.6 % (0.0-3.0); HEMATOCRIT 30.5 % (36.0-47.0); HEMOGLOBIN 8.9 g/dl (12.0-15.5); LYMPH # 0.5 10^3/uL (1.5-5.0); LYMPH % 9.1 % (24.0-44.0); MEAN CORPUSCULAR HGB CONC 29.2 g/dl (32.0-36.5); MEAN CORPUSCULAR VOLUME 92.4 fl (80.0-96.0); MONO # 0.8 10^3/uL (0.0-0.8); MONO % 15.2 % (2.0-8.0); NEUTROPHILS # 3.7 10^3/uL (1.5-8.5); NEUTROPHILS % 74.5 % (36.0-66.0)
[2020-08-07 06:09] LABS: PLATELET COUNT, AUTOMATED 89 10^3/uL (150-450)
[2020-08-07 06:27] LABS: ALBUMIN 2.9 GM/DL (3.2-5.2); BILIRUBIN,TOTAL 1.2 MG/DL (0.2-1.0); CALCIUM LEVEL 8.5 MG/DL (8.8-10.2); CREATININE FOR GFR 1.22 MG/DL (0.55-1.30); GLOMERULAR FILTRATION RATE 44.6 (>32); POTASSIUM SERUM 4.5 MEQ/L (3.5-5.1)
[2020-08-07] MEDS: FUROSEMIDE 40MG/4ML VIAL (J1940) IV SCH (08:48)
[2020-08-07] MEDS: FLECAINIDE 50MG TABLET PO SCH ×2 (08:48→21:10)
[2020-08-07] MEDS: APIXABAN 2.5 MG TAB (ELIQUIS) PO SCH ×2 (08:49→21:10)
[2020-08-07] MEDS: IRBESARTAN 150MG TAB PO SCH (08:49)
[2020-08-07] MEDS: METOPROLOL SUCC (TopROL XL) 100MG *XL* TAB PO SCH (08:49)
--- NOTE | 2020-08-07 09:24 | IPNPDOC ---
Text Note Date of Service The patient was seen on 08/07/20. NOTE Subjective: Patient seen and examined at bedside. No acute overnight events reported. Patient has no new medical complaints this morning. She states she is feeling better but still notes shortness of breath. Objective: General: NAD, sitting comfortably in chair, elderly Lungs: b/l basilar crackles Heart: +S1S2, systolic murmur, irregular Abd: +BS, soft, NT A/P: 84F who presented to the emergency room with complaints of shortness of breath. She was sent emergency room by her primary care provider, Dr. Hopkins for shortness of breath, SAAVEDRA and LE swelling. She also noted orthopnea, worsening over the past month. #Shortness of breath - likely 2/2 decompensated acute on chronic systolic CHF - Presented to ER from PCP office for shortness of breath with exertion and low er extremity swelling - Patient has reported recent worsening of lower extremity swelling - BNP elevated compared to baseline - ECHO 02/26/2019: Ejection fraction 40% - s/p Furosemide 40 in ER - Will monitor strict ins/outs, daily weights, fluid restrictions, IV lasix - Will repeat ECHO / Telemetry monitoring #CKD #Chronic thrombocytopenia - Appears to date back to 2011 - No evidence of bleeding - Will check hepatitis profile - Will continue to trend #HTN - Blood pressure is well controlled - Will continue irbesartan / metoprolol #Paroxysmal atrial fibrillation - Continue with rate/rhythm control with metoprolol and flecainide - Continue with full anticoagulation with Eliquis #Hypothyroidism - c/w Levothyroxine #DVT prophylaxis - Will continue with full anticoagulation as above for afib #Code status: - DNR / DNI VS,Jeannettee, I+O VS, Josébone, I+O Laboratory Tests 08/06/20 10:29 08/07/20 05:33 Vital Signs Date Time Temp Pulse Resp B/P (MAP) Pulse Ox O2 Delivery O2 Flow Rate FiO2 08/07/20 08:49 77 165/79 08/07/20 07:28 96.5 18 96 Room Air 08/07/20 04:00 1.0 I&O- Last 24 Hours up to 6 AM 08/07/20 06:00 Intake Total 210 ml Output Total 800 ml Balance -590 ml EILEEN GUERRA MD August 07, 2020 09:24
[2020-08-08] VITALS: BP 131/75
[2020-08-08 04:00] VITALS: BP 149/90
[2020-08-08 05:20] LABS: BASO % 0.2 % (0.0-1.0); EOS % 0.4 % (0.0-3.0); HEMATOCRIT 29.8 % (36.0-47.0); LYMPH # 0.4 10^3/uL (1.5-5.0); LYMPH % 7.9 % (24.0-44.0); MEAN CORPUSCULAR HEMOGLOBIN 27.4 pg (27.0-33.0); MEAN CORPUSCULAR HGB CONC 30.2 g/dl (32.0-36.5); MEAN CORPUSCULAR VOLUME 90.9 fl (80.0-96.0); MONO # 0.7 10^3/uL (0.0-0.8); MONO % 13.6 % (2.0-8.0); NEUTROPHILS # 4.2 10^3/uL (1.5-8.5); NEUTROPHILS % 77.3 % (36.0-66.0); RED BLOOD COUNT 3.28 10^6/uL (4.00-5.40); WHITE BLOOD COUNT 5.5 10^3/uL (4.0-10.0)
[2020-08-08 05:22] LABS: PLATELET COUNT, AUTOMATED 98 10^3/uL (150-450)
[2020-08-08] MEDS: LEVOTHYROXINE 75MCG TABLET (0.075MG) PO SCH (05:26)
[2020-08-08] MEDS: SLF 3 ML SYR IV SCH ×3 (05:26→21:48)
[2020-08-08 05:36] LABS: ALBUMIN 2.9 GM/DL (3.2-5.2); BILIRUBIN,TOTAL 0.9 MG/DL (0.2-1.0); CALCIUM LEVEL 8.7 MG/DL (8.8-10.2); CREATININE FOR GFR 1.09 MG/DL (0.55-1.30); GLOMERULAR FILTRATION RATE 50.8 (>32); MAGNESIUM LEVEL 1.8 MG/DL (1.8-2.4); POTASSIUM SERUM 3.8 MEQ/L (3.5-5.1); TOTAL PROTEIN 5.7 GM/DL (6.4-8.2)
[2020-08-08 07:26] VITALS: BP 155/70
[2020-08-08] MEDS: APIXABAN 2.5 MG TAB (ELIQUIS) PO SCH ×2 (07:56→21:47)
[2020-08-08] MEDS: IRBESARTAN 150MG TAB PO SCH (07:56)
[2020-08-08] MEDS: METOPROLOL SUCC (TopROL XL) 100MG *XL* TAB PO SCH (07:56)
[2020-08-08] MEDS: FUROSEMIDE 40MG/4ML VIAL (J1940) IV SCH (07:57)
[2020-08-08] MEDS: FLECAINIDE 50MG TABLET PO SCH ×2 (08:00→21:47)
--- NOTE | 2020-08-08 08:43 | IPNPDOC ---
Text Note Date of Service The patient was seen on 08/08/20. NOTE Subjective: Patient seen and examined at bedside. No acute overnight events reported. Patient has no new medical complaints this morning. She states she is feeling better. Weaned off oxygen this morning. Objective: General: NAD, sitting comfortably in chair, elderly Lungs: b/l basilar crackles Heart: +S1S2, systolic murmur, irregular Abd: +BS, soft, NT A/P: 84F who presented to the emergency room with complaints of shortness of breath. She was sent to the emergency room by her primary care provider, Dr. Hopkins for shortness of breath, SAAVEDRA and LE swelling. She also noted orthopnea, worsening over the past month. #Shortness of breath - likely 2/2 decompensated acute on chronic systolic CHF - Presented to ER from PCP office for shortness of breath with exertion and lower extremity swelling - Patient has reported recent worsening of lower extremity swelling - BNP elevated compared to baseline - ECHO 02/26/2019: Ejection fraction 40% - Will monitor strict ins/outs, daily weights, fluid restrictions, IV lasix - repeat echo pending/ Telemetry monitoring #Chronic thrombocytopenia - Appears to date back to 2011 - No evidence of bleeding - hepatitis profile negative #HTN - Blood pressure is well controlled - Will continue irbesartan / metoprolol #Paroxysmal atrial fibrillation - Continue with rate/rhythm control with metoprolol and flecainide - Continue with full anticoagulation with Eliquis #Hypothyroidism - c/w Levothyroxine #DVT prophylaxis - Will continue with full anticoagulation as above for afib #Code status: - DNR / DNI Disposition: further PT, check O2 sats with ambulation, continue IV lasix today, pending echo VS,Fishbone, I+O VS, Fishbone, I+O Laboratory Tests 08/08/20 04:50 Vital Signs Date Time Temp Pulse Resp B/P (MAP) Pulse Ox O2 Delivery O2 Flow Rate FiO2 08/08/20 07:56 77 08/08/20 07:56 158/75 08/08/20 07:26 96.8 20 93 Room Air 08/07/20 12:00 1.0 I&O- Last 24 Hours up to 6 AM 08/08/20 06:00 Intake Total 168 ml Output Total 750 ml Balance -582 ml EILEEN GUERRA MD August 08, 2020 08:43
[2020-08-08 12:00] VITALS: BP 122/69
[2020-08-08 16:00] VITALS: BP 117/59
[2020-08-08 20:00] VITALS: BP 124/59
[2020-08-09] VITALS: BP 148/79
[2020-08-09 04:00] VITALS: BP 143/71
[2020-08-09] MEDS: SLF 3 ML SYR IV SCH ×2 (05:48→14:00)
[2020-08-09] MEDS: LEVOTHYROXINE 75MCG TABLET (0.075MG) PO SCH (05:48)
[2020-08-09 06:19] LABS: BASO % 0.2 % (0.0-1.0); EOS % 0.7 % (0.0-3.0); HEMATOCRIT 33.2 % (36.0-47.0); HEMOGLOBIN 9.8 g/dl (12.0-15.5); LYMPH # 0.5 10^3/uL (1.5-5.0); LYMPH % 11.1 % (24.0-44.0); MEAN CORPUSCULAR HEMOGLOBIN 27.2 pg (27.0-33.0); MEAN CORPUSCULAR HGB CONC 29.5 g/dl (32.0-36.5); MEAN CORPUSCULAR VOLUME 92.2 fl (80.0-96.0); MONO # 0.7 10^3/uL (0.0-0.8); MONO % 15.5 % (2.0-8.0); NEUTROPHILS # 3.1 10^3/uL (1.5-8.5); NEUTROPHILS % 72.3 % (36.0-66.0); PLATELET COUNT, AUTOMATED 108 10^3/uL (150-450); WHITE BLOOD COUNT 4.3 10^3/uL (4.0-10.0)
[2020-08-09 06:37] LABS: BILIRUBIN,TOTAL 0.7 MG/DL (0.2-1.0); CALCIUM LEVEL 9.2 MG/DL (8.8-10.2); CREATININE FOR GFR 1.02 MG/DL (0.55-1.30); GLOMERULAR FILTRATION RATE 54.8 (>32); MAGNESIUM LEVEL 2.1 MG/DL (1.8-2.4); POTASSIUM SERUM 4.1 MEQ/L (3.5-5.1); TOTAL PROTEIN 6.5 GM/DL (6.4-8.2)
[2020-08-09 08:00] VITALS: BP 149/88
[2020-08-09] MEDS: FLECAINIDE 50MG TABLET PO SCH (09:38)
[2020-08-09] MEDS: IRBESARTAN 150MG TAB PO SCH (09:38)
[2020-08-09 09:39] VITALS: BP 149/88
[2020-08-09] MEDS: METOPROLOL SUCC (TopROL XL) 100MG *XL* TAB PO SCH (09:39)
[2020-08-09] MEDS: APIXABAN 2.5 MG TAB (ELIQUIS) PO SCH (09:39)
[2020-08-09 12:00] VITALS: BP 138/78
--- NOTE | 2020-08-09 14:25 | DS.PDOC ---
Discharge Summary General Date of Admission August 06, 2020 at 13:30 Date of Discharge 08/09/20 Discharge Summary PROCEDURES PERFORMED DURING STAY: [None]. DISCHARGE DIAGNOSES: #CKD #decompensated acute on chronic systolic heart failure #HTN #paroxysmal a-fib #hypothyroidism #chronic thrombocytopenia COMPLICATIONS/CHIEF COMPLAINT: Chf Exacerbation. HISTORY OF PRESENT ILLNESS: Patient is an 84-year-old female who presented to the emergency room with complaints of shortness of breath. She was sent emergency room by her primary care provider, Eileen Hopkins. Upon arrival to primary cares office, patient had reported shortness of breath and LE swelling, and shortness of breath with exertion. Denies any shortness of breath with rest. Patient reports a chronic cough with yellow sputum over the last 5 years. Patient denied any chest pain or palpitations. Has not experience any nausea, vomiting, abdominal pain consultation, diarrhea, or urinary discomfort. She reported that at night she sleeps on her right side and wakes up 2-3 times a day because of shortness of breath. Reports that her lower extremity swelling has worsened over the last 1 month. HOSPITAL COURSE: Patient admitted for further evaluation and treatment for suspected decompensated congestive heart failure. She responded well to diuretic treatment with parenteral furosemide. She was initially requiring supplemental oxygen, which was successfully weaned off to room air. She ambulated well on room air and was cleared by physical therapy and echocardiogram was also obtained with no acute findings.. She was deemed stable for discharge with outpatient follow-up. DISCHARGE MEDICATIONS: Please see below. ALLERGIES: Please see below. PHYSICAL EXAMINATION ON DISCHARGE: VITAL SIGNS: Please see below. General: NAD, sitting comfortably in chair, elderly Lungs: minimal basilar crackles Heart: +S1S2, systolic murmur, irregular Abd: +BS, soft, NT Ext: trace edema LABORATORY DATA: Please see below. ACTIVITY: [As tolerated]. DIET: 2 gram sodium, 1800 cc daily fluid restriction DISPOSITION: Home with services. DISCHARGE INSTRUCTIONS: 1. PCP in 3-5 days DISCHARGE CONDITION: [Stable]. TIME SPENT ON DISCHARGE: 35 minutes. Vital Signs/I&Os Vital Signs Date Time Temp Pulse Resp B/P (MAP) Pulse Ox O2 Delivery O2 Flow Rate FiO2 08/09/20 12:00 98.0 88 18 138/78 (98) 96 Room Air 08/07/20 12:00 1.0 I&O- Last 24 Hours up to 6 AM 08/09/20 05:59 Intake Total 540 ml Output Total 1450 ml Balance -910 ml Laboratory Data Labs 24H Laboratory Tests 2 08/09/20 05:04: Immature Granulocyte % (Auto) 0.2, Neutrophils (%) (Auto) 72.3H, Lymphocytes (%) (Auto) 11.1L, Monocytes (%) (Auto) 15.5H, Eosinophils (%) (Auto) 0.7, Basophils (%) (Auto) 0.2, Neutrophils # (Auto) 3.1, Lymphocytes # (Auto) 0.5L, Monocytes # (Auto) 0.7, Eosinophils # (Auto) 0.0, Basophils # (Auto) 0.0, Nucleated Red Blood Cells % (auto) 0.0, Anion Gap 1L, Glomerular Filtration Rate 54.8, Calcium Level 9.2, Magnesium Level 2.1, Total Bilirubin 0.7, Aspartate Amino Transf (AST/SGOT) 14, Alanine Aminotransferase (ALT/SGPT) 15, Alkaline Phosphatase 98, Total Protein 6.5, Albumin 3.0L, Albumin/Globulin Ratio 0.9L CBC/BMP Laboratory Tests 08/09/20 05:04 Microbiology Microbiology 08/06/20 Respiratory Virus Panel (PCR) ([facility]) - Final, Complete Discharge Medications Scheduled Apixaban (Eliquis) 2.5 Mg Tab, 2.5 MG PO BID, (Reported) Flecainide Acetate (Flecainide Acetate) 50 Mg Tablet, 50 MG PO BID, (Reported) Furosemide (Furosemide) 20 Mg Tablet, 20 MG PO DAILY, (Reported) Irbesartan (Irbesartan) 150 Mg Tablet, 150 MG PO DAILY, (Reported) Levothyroxine Sodium (Levothyroxine Sodium) 75 Mcg Tablet, 75 MCG PO DAILY, (Reported) Metoprolol Succinate (Metoprolol Succinate) 100 Mg Tab.er.24h, 100 MG PO DAILY, (Reported) Allergies Coded Allergies: codeine (Verified Adverse Reaction, Mild, UPSET STOMACH, 07/03/20) tramadol (Verified Adverse Reaction, Mild, HEADACHE, 07/03/20) EILEEN GUERRA MD August 09, 2020 14:25
--- NOTE | 2020-08-10 09:47 | ECHO ---
DATE OF PROCEDURE: 08/09/2020 Age: 84 Gender: Female Height: 157 cm Weight: 73 kg REFERRING PHYSICIAN: Conhcita Mota M.D. INDICATION: Dyspnea. MEASUREMENTS: IVS 1.2 cm LV 5.3 cm LVPW 1.3 cm LA 4.0 cm Aorta 3.5 cm Left atrial volume index 51 Mitral E wave velocity 140 cm/s E prime septal 5.9 cm/s E prime lateral 8.2 cm/s FINDINGS: This study is of somewhat limited technical quality. The patient is in atrial fibrillation with controlled rate and wide QRS complex. Left ventricle is normal size. Mild left ventricular hypertrophy is present. Overall there appears to be mild left ventricular systolic dysfunction and estimated EF around 45% to 50%. Right ventricle is normal size and systolic function. There is severe biatrial enlargement. Aortic valve is tricuspid. It is heavily calcified and there is almost complete fusion of right and left coronary cusps. Mitral valve also exhibits very prominent degenerative abnormalities with very prominent mitral annular calcifications and restriction of leaflet mobility that is at least mild. Tricuspid valve appears normal. Pulmonic valve was not well seen. No pericardial effusion is noted. Inferior vena cava is dilated, but it does have some collapse with respiration, indicative of at least mildly elevated central venous pressure. Aortic root and aortic arch appear normal. Abdominal aorta was not well seen. Doppler interrogation of the aortic valve reveals mild insufficiency and likely severe stenosis. Mean gradient was 38, peak gradient 58, and calculated aortic valve area 0.5, which is probably over estimating severity of the stenosis. There is at least moderate and possibly even severe mitral insufficiency and no significant mitral stenosis. Mild tricuspid insufficiency is seen. Calculated pulmonary artery pressure is in the 40s corresponding to moderate pulmonary hypertension. Evaluation of diastolic function is inconclusive due to underlying atrial fibrillation. CONCLUSIONS: 1. Study is of acceptable technical quality, underlying atrial fibrillation with wide QRS complex. 2. Normal LV size with mild LVH, mildly reduced LV systolic function with estimated EF around 50%. 3. Severe biatrial enlargement. 4. Severe calcific aortic stenosis, mild aortic insufficiency. 5. Very prominent degenerative abnormalities of the mitral valve with resulting at least moderate mitral insufficiency. 6. Elevated central venous pressure and likely moderate pulmonary hypertension. MTDD
== END 2020-08-09 14:59 | disposition home health service (06) | DRG 291 ==
LOC: M ED 10:14 → M ED INP 13:30 → M PCU 14:42
PROVIDERS: ADMIT Internal Medicine; ATTEND Internal Medicine
DX: I13.0 Hypertensive heart and chronic kidney disease with heart failure and stage 1 through stage 4 chronic kidney disease, or unspecified chronic kidney disease (principal); I50.23 Acute on chronic systolic (congestive) heart failure; I48.0 Paroxysmal atrial fibrillation; D69.6 Thrombocytopenia, unspecified; N18.9 Chronic kidney disease, unspecified; Z79.899 Other long term (current) drug therapy; Z88.5 Allergy status to narcotic agent; E03.9 Hypothyroidism, unspecified; Z96.652 Presence of left artificial knee joint; Z66 Do not resuscitate

== ENCOUNTER 2020-11-16 16:54 | Inpatient (IN) | payer MEDICARE ==
[~2020-11-16] VITALS: Ht 149.9 cm; Wt 60.5 kg
[~2020-11-16 16:54] MED LIST changes: +LEVO75TA4 PO
[2020-11-16] MEDS ORDERED: SERT-141 PO (17:40)
[2020-11-16] MEDS ORDERED: DOCU-153 PO (17:40)
[2020-11-16] MEDS ORDERED: ATOR40TA75 PO (17:40)
[2020-11-16] MEDS ORDERED: NITR0.4S14 SL (17:40)
[2020-11-16] MEDS ORDERED: QUET1TAB17 PO (17:40)
[2020-11-16] MEDS ORDERED: MIRT1TAB15 PO (17:40)
[2020-11-16] MEDS ORDERED: URSO300C3 PO (17:40)
[2020-11-16] MEDS ORDERED: METO1TAB87 PO (17:40)
[2020-11-16] MEDS ORDERED: MELA3TAB49 PO (17:40)
[2020-11-16] MEDS ORDERED: FOLI1TAB11 PO (17:40)
[2020-11-16] MEDS ORDERED: ASPI81CH33 PO (17:40)
--- NOTE | 2020-11-16 18:25 | REP ---
INDICATION: groin pain after multiple falls Nontraumatic hip pain. COMPARISON: None. TECHNIQUE: Frontal view of the pelvis with neutral and frog lateral views of the right hip. FINDINGS: Age-related osteopenia and advanced degenerative changes noted throughout the visualized lumbar spine, pelvis and hips. No definite acute right hip fracture is identified although evaluation is limited by degenerative changes. Subtle nondisplaced fracture(s) involving the pubis and left inferior pubic ramus cannot be excluded and should be correlated with physical examination. IMPRESSION: Limited by osteopenia and extensive degenerative changes. Cannot exclude nondisplaced fracture involving the pubis or left inferior pubic ramus. <Electronically signed by Lan Marcum > 11/16/20 [id number]
[2020-11-16] MEDS ORDERED: ONDANSETRON 4MG/2ML VIAL As Ordered ONE (21:41)
[2020-11-16] MEDS ORDERED: ONDANSETRON 4MG/2ML VIAL IV ONE (21:55)
[2020-11-16] MEDS ORDERED: NORCO, ANEXSIA 5/325MG TABLET (HYDROcodone/ACETAMINOPHEN) PO ONE (21:55)
[2020-11-16] MEDS: MORPHINE 2 MG/ML 1ML VIAL (J2270) IV PRN (22:22)
--- NOTE | 2020-11-16 22:26 | REPVR ---
PROCEDURE INFORMATION: Exam: CT Lumbar Spine Without Contrast Exam date and time: 11/16/2020 9:35 PM Age: 85 years old Clinical indication: Other: Right leg, groin, hip pain TECHNIQUE: Imaging protocol: Computed tomography images of the lumbar spine without contrast. Radiation optimization: All CT scans at this facility use at least one of these dose optimization techniques: automated exposure control; mA and/or kV adjustment per patient size (includes targeted exams where dose is matched to clinical indication); or iterative reconstruction. COMPARISON: CT ABD PELVIS W/O CONTRAST 02/27/2019 3:43 AM FINDINGS: Tubes, catheters and devices: Pacemaker in position. Vertebrae: No acute compression or fracture. Mild anterior wedge configuration of T12 and to a lesser degree T11 which appear to be chronic. Mild superior endplate depression of L2 which is unchanged from a prior study. L1-L2: Mild interspace narrowing with vacuum phenomena and moderate facet arthropathy with low normal size of the spinal canal and adequate size of the neural foramen. L2-L3: Prominent interspace narrowing with moderate facet arthropathy and moderate secondary spinal stenosis. There is mild right neural foraminal stenosis. L3-L4: Prominent interspace narrowing with posterior osteophytes and moderate facet arthropathy. There is mild secondary spinal stenosis and borderline right and mild left neural foraminal stenosis. L4-L5: Moderate interspace narrowing with posterior osteophytes and disc protrusion. There is moderately prominent facet arthropathy with moderate secondary spinal stenosis and moderate left and mild right neural foraminal stenosis. L5-S1: Moderate interspace narrowing with posterolateral osteophytes and mild facet arthropathy. The spinal canal is of adequate size with moderate right and mild left neural foraminal stenosis. Other bones/joints: Osteopenia. Mediastinum: Minimal hiatal hernia. Vasculature: Splenic calcifications are noted. There is moderate atherosclerotic calcification of the abdominal aorta with extension into the iliac arteries. Soft tissues: Unremarkable. IMPRESSION: 1. Mild anterior wedge configuration of T12 and L1 and mild superior endplate depression of L2 which are similar to 02/27/2019. 2. Osteopenia. 3. Multilevel degenerative disc changes and facet arthropathy with varying degrees of multilevel spinal and neural foraminal stenosis. 4. No acute fracture or subluxation. Electronically signed by: Bubba Montes On 11/16/2020 22:25:22 PM
--- NOTE | 2020-11-16 22:33 | REPVR ---
PROCEDURE INFORMATION: Exam: CT Right Lower Extremity Without Contrast, Hip Exam date and time: 11/16/2020 9:35 PM Age: 85 years old Clinical indication: Pain; Hip; Right; Additional info: Right leg, groin, hip pain TECHNIQUE: Imaging protocol: CT of the Right lower extremity without contrast was performed. Exam focused on the hip. Radiation optimization: All CT scans at this facility use at least one of these dose optimization techniques: automated exposure control; mA and/or kV adjustment per patient size (includes targeted exams where dose is matched to clinical indication); or iterative reconstruction. COMPARISON: CR Hip,AP,LAT to include Pelvis RIGHT 11/16/2020 5:52 PM FINDINGS: Bones/joints: Cyst extending from the right kidney measuring 5.2 x 3.4 cm and a Hounsfield measurement of 12 which is incompletely visualized. No fracture. Diffuse joint space narrowing of the hip with degenerative spurring. No fractures. Soft tissues: Subcutaneous confluence and infiltration to the right of midline in the low back and into the pelvis with soft tissue gas which may reflect infection or cellulitis. There is a decubitus ulcer over the sacrococcygeal region with a collection of gas. Vasculature: There is moderate atherosclerotic calcification of the abdominal aorta with extension into the iliac arteries. Bowel: Sigmoid diverticulosis. Retroperitoneal space: There appears to be extension of fat into the inguinal regions bilaterally, right greater than left but appear to extend from retroperitoneal fat. IMPRESSION: 1. Decubitus ulceration over the sacrococcygeal region to the right of midline with collections of gas within soft tissues which are confluent with the osseous structures. No definite osseous erosion is noted at this time. There is subcutaneous infiltration confluence extending cephalad into the low right back and pelvis which may reflect cellulitis. 2. Fat filled bilateral inguinal hernias, right greater than left with question of extension from the retroperitoneum. 3. Sigmoid diverticulosis. 4. 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 No fracture. Electronically signed by: Bubba Montes On 11/16/2020 22:33:32 PM
--- NOTE | 2020-11-16 22:34 | REPVR ---
PROCEDURE INFORMATION: Exam: US Duplex Right Lower Extremity Veins, Limited Exam date and time: 11/16/2020 10:07 PM Age: 85 years old Clinical indication: Pain; Leg, upper; Right; Additional info: Groin pain, fall 2 days ago TECHNIQUE: Imaging protocol: Real-time Duplex ultrasound of the Right Lower Extremity with 2-D hamilton scale, color Doppler flow and spectral waveform analysis with image documentation. Limited exam was focused on the right lower extremity veins. COMPARISON: US Duplex, Ext LOWER veins, bilat 08/06/2020 10:55 AM FINDINGS: Right deep veins: Unremarkable. The common femoral, femoral, proximal profunda femoral and popliteal veins are patent without thrombus. Normal Doppler waveforms. Normal compressibility and/or augmentation response. Right superficial veins: Unremarkable. Saphenofemoral junction is patent without thrombus. Soft tissues: Unremarkable. IMPRESSION: Negative right lower extremity venous duplex exam without evidence of deep venous thrombosis. Electronically signed by: Bubba Montes On 11/16/2020 22:33:58 PM
[2020-11-16 22:36] LABS: BASO % 0.1 % (0.0-1.0); HEMATOCRIT 22.3 % (36.0-47.0); LYMPH # 0.4 10^3/uL (1.5-5.0); LYMPH % 3.3 % (24.0-44.0); MEAN CORPUSCULAR HEMOGLOBIN 32.1 pg (27.0-33.0); MEAN CORPUSCULAR HGB CONC 31.4 g/dl (32.0-36.5); MEAN CORPUSCULAR VOLUME 102.3 fl (80.0-96.0); MONO # 0.8 10^3/uL (0.0-0.8); MONO % 7.5 % (2.0-8.0); NEUTROPHILS # 9.5 10^3/uL (1.5-8.5); NEUTROPHILS % 88.5 % (36.0-66.0); PLATELET COUNT, AUTOMATED 127 10^3/uL (150-450); RED BLOOD COUNT 2.18 10^6/uL (4.00-5.40); WHITE BLOOD COUNT 10.8 10^3/uL (4.0-10.0)
[2020-11-17] VITALS (45 sets, daily range): BP systolic 72–116; BP diastolic 37–60; O2SAT 95–97
[2020-11-17] MEDS ORDERED: MIRT-62 PO (00:17)
[2020-11-17] MEDS ORDERED: IPRA0.00 NEB (00:23)
[2020-11-17] MEDS ORDERED: LEVO100T5 PO (00:23)
[2020-11-17] MEDS ORDERED: FERR5ELX PO (00:23)
[2020-11-17] MEDS ORDERED: HOME MED LIST COMPLETE! XX SCH (00:25)
--- NOTE | 2020-11-17 00:31 | REPVR ---
PROCEDURE INFORMATION: Exam: CT Abdomen And Pelvis Without Contrast Exam date and time: 11/16/2020 11:42 PM Age: 85 years old Clinical indication: Pain; Other: Groin; Additional info: Right groin pain, fall 2 days ago R side, low hgb TECHNIQUE: Imaging protocol: Computed tomography of the abdomen and pelvis without contrast. Radiation optimization: All CT scans at this facility use at least one of these dose optimization techniques: automated exposure control; mA and/or kV adjustment per patient size (includes targeted exams where dose is matched to clinical indication); or iterative reconstruction. COMPARISON: CT ABD PELVIS W/O CONTRAST 02/27/2019 3:43 AM FINDINGS: Tubes, catheters and devices: Pacemaker in position. Lungs: Bibasilar infiltrates with interstitial coarsening and fibro-atelectatic change, left greater than right. Mediastinal space: Minimal hiatal hernia. Liver: Splenic and hepatic calcifications are noted. The liver and spleen are grossly intact on this noncontrast scan. No perihepatic or perisplenic fluid collections are identified. Gallbladder and bile ducts: There is a gallstone in the gallbladder measuring 5 mm. Pancreas: Normal. No ductal dilation. Spleen: Normal. No splenomegaly. Adrenal glands: Normal. No mass. Kidneys and ureters: There is a right renal cyst measuring 4.0 x 5.4 x 4.4 cm with a Hounsfield measurement of 7 and appears to be simple. No follow-up imaging is recommended. Stomach and bowel: There is colonic diverticulosis without evidence of diverticulitis. Appendix: There are no changes of appendicitis. A normal appendix is not seen. Intraperitoneal space: Unremarkable. No free air. No significant fluid collection. Vasculature: There is moderate atherosclerotic calcification of the abdominal aorta with extension into the iliac arteries. There is slight ectasia of the infrarenal aorta measuring 3.0 x 2.9 cm. Slight ectasia extends into the common iliac arteries measuring 15 mm bilaterally. Lymph nodes: Unremarkable. No enlarged lymph nodes. Urinary bladder: Unremarkable as visualized. Reproductive: Unremarkable as visualized. Bones/joints: Status post sternotomy. Degenerative changes are noted in the hips bilaterally, right greater than left. Facet arthropathy and degenerative disc changes are noted in the lumbar spine. There is slight wedge configuration of T11 and T12 which appear to be chronic and superior endplate depression of L2 which is similar to the prior study. Soft tissues: Small fat filled inguinal hernias, right greater than left. A which may extend from the retroperitoneal fat. Decubitus ulcer over the distal sacrum centered to the right of midline with confluence and gas. There is subcutaneous infiltration and some confluence which extends cephalad into the low back to the right of midline and may reflect cellulitis. IMPRESSION: 1. Bibasilar infiltrates with interstitial coarsening and fibro-atelectatic change. 2. Old granulomatous disease of the spleen and liver. 3. Degenerative changes of the hips, right greater than left and slight anterior wedge configuration of T11 and T12 and superior endplate depression of L2 which appear to be chronic. 4. Cholelithiasis. 5. Minimal hiatal hernia. 6. Colonic diverticulosis without diverticulitis. 7. Fat filled bilateral inguinal collections, right greater than left suggesting inguinal hernias which may be from the retroperitoneum. 8. Decubitus ulcer over the distal sacrum centered to the right. There is subcutaneous infiltration confluence extending cephalad into the low back to the right of midline which may reflect cellulitis. COMMENTS: Consistent with the [employer]'s Incidental Findings Committee white paper (J [employer]iol 2018): Any incidental renal lesion less than 1 cm or classified as too small to characterize, or any incidental cystic renal lesion characterized as simple-appearing, is likely benign. No follow-up imaging is recommended for these lesions per consensus recommendations based on imaging criteria. Electronically signed by: Bubba Montes On 11/17/2020 00:31:32 AM
[2020-11-17 00:49] LABS: PERCENT SATURATION 19.2 % (13.2-45.0)
[2020-11-17 01:21] LABS: RSV AMPLIFICATION NEGATIVE (NEGATIVE)
--- NOTE | 2020-11-17 01:36 | REPVR ---
PROCEDURE INFORMATION: Exam: XR Chest Exam date and time: 11/17/2020 1:25 AM Age: 85 years old Clinical indication: Shortness of breath; Additional info: Recent cabg, fall, SOB TECHNIQUE: Imaging protocol: XR of the chest. Views: 1 view. COMPARISON: DC PORTABLE CHEST X-RAY 08/06/2020 10:26 AM FINDINGS: Tubes, catheters and devices: New left atrial appendage exclusion device. Interval placement of pacemaker from the left. Lungs: The lungs are unchanged. There are no interval infiltrates. Pleural spaces: Unremarkable. No pleural effusion. No pneumothorax. Heart/Mediastinum: Persistent cardiomegaly. Bones/joints: Interval sternotomy since the prior study. IMPRESSION: 1. Interval sternotomy and left atrial appendage exclusion device since 08/06/2020. There is also interval placement of a pacemaker from the left. 2. Otherwise stable chest with persistent cardiomegaly. Electronically signed by: Bubba Montes On 11/17/2020 01:35:41 AM
[2020-11-17] MEDS ORDERED: SODIUM CHLORIDE 0.9% 1000ML IV STA (02:28)
[2020-11-17] MEDS ORDERED: MAALOX 30 ML SUSP *UDC PO PRN (03:05)
[2020-11-17] MEDS ORDERED: ACETAMINOPHEN TAB 650MG DOSE (2X325MG) PO PRN (03:05)
--- NOTE | 2020-11-17 03:08 | HPEPDOC ---
[facility] Medical History & Physical Date of Admission Nov 17, 2020 Date of Service: Nov 17, 2020 Attending Physician: BRADFORD JOSEPH MD History and Physical CHIEF COMPLAINT: [85 y/o female presents to the ED with a cc of right hip pain s/p a fall 4 days ago] HISTORY OF PRESENT ILLNESS: [This is an 85 y/o female with a pmh of cad s/p CABG, a-fib s/p pacer, chf, htn, copd, gout, hypothyroidism, depression who reports to our ED on 11/16 with a cc of right hip pain after a fall she suffered 4 days ago. Patient states that 4 days ago she dropped a pill on the ground in her bathroom, and concerned that her granddaughter would find it, attempted to bend down to pick it up. Patient states that while reaching for it on the ground, she lost her balance and fell onto her right side. Patient states that she was able to get up and walk post fall. Unfortunately, the next day, when trying to get out of the bath tub, she slipped and fell yet again onto the right side again. Patient has been having difficulty ambulating and pain in the right thigh since. Patient recently underwent a stay at [facility] for approx 60 days in which she was discharged on 10/31. During this stay, patient underwent triple bypass coronary artery grafting, unspec cardiac valve replacement, and pacemaker placement. According to patient and daughter, this stay was complicated by many complications such as hospital acquired pneumonia and a large sacral decubitus ulcer. Patient underwent wound debridement of sacral decubitus yesterday 11/16. Imaging performed in our ED today in investigation of before mentioned right hip injury showing possible gas and infection in sacral decubitus wound as well as bilateral lung infiltrates. Patient also meeting sepsis criteria with tmax of 100.9, transient bouts of tachycardia up to 90s, hypoxia of 84 on RA, hypotension with lowest sbp of 89 and leukocytosis of 10.8. Also notable is a hemoglobin of 7. As of my exam, patient states that besides the pain in her right hip, she feels "pretty good." Patient tells me that she has just felt rather fatigued as of late, and has had somewhat of a poor appetite. Patient states that she has noticed some trace edema to her b/l feet. Patient tells me she has not had any explicit fevers, but does currently feel warm. Patient also endorses some episodes of transient sob. Patient, at the time of my exam, denies chills, chest pain, uri type symptoms, abd pain, n/v/d/c, cough, calf pain, syncope, dizziness.] PAST MEDICAL HISTORY: 1. [See HPI PAST SURGICAL HISTORY: 1. [B/l cataract removal with lens implants]. 2. [CABG]. 3. [Unspec heart valve replacement 4. Pacemaker placement 5. Left TKA 6. Right arm ORIF]. SOCIAL HISTORY: Tobacco use:[Denies] ETOH: [Denies] Illicit drug use: [Denies] FAMILY HISTORY: Reviewed - none pertinent ALLERGIES: Please see below. REVIEW OF SYSTEMS: CONSTITUTIONAL: [See HPI]. HEENT: [Denies uri type sx]. CARDIOVASCULAR: [See HPI]. RESPIRATORY: [See HPI]. GASTROINTESTINAL: [See HPI]. GENITOURINARY: [Denies dysuria]. SKIN: [Denies rash]. MUSCULOSKELETAL: [See HPI]. NEUROLOGICAL: [See HPI]. ENDOCRINE: [Denies hx of DM]. HEMATOLOGIC/LYMPHATIC: [Denies hx of vte]. HOME MEDICATIONS: Please see below. PHYSICAL EXAMINATION: VITAL SIGNS: Please see below. GENERAL APPEARANCE: [This is a 85 y/o female who is alert and oriented to all questioning. She does not appear to be in any acute distress. She does have mildly increased work of breathing.]. HEENT: [No mass or lesion. EOMI. No scleral icterus. Nares patent. Oral mucosa moist.]. CARDIOVASCULAR: [Tachy rate, regular rhythm. 4/6 murmur appreciated throughout.]. LUNGS: [Decreased air flow b/l. Questionable crackles to right lower lung]. ABDOMEN: [Soft, nontender]. MUSCULOSKELETAL: [No joint deformity]. EXTREMITIES: [Trace pitting edema appreciated to b/l feet. No overlying skin changes. Pulses intact.]. NEUROLOGICAL: [Speech clear. A+Ox3. No focal deficits]. PSYCHIATRIC: [Mood and affect appear appropriate.]. LABORATORY DATA: See below. IMAGING: [Hip/pelvis XR: FINDINGS: Age-related osteopenia and advanced degenerative changes noted throughout the visualized lumbar spine, pelvis and hips. No definite acute right hip fracture is identified although evaluation is limited by degenerative changes. Subtle nondisplaced fracture(s) involving the pubis and left inferior pubic ramus cannot be excluded and should be correlated with physical examination. IMPRESSION: Limited by osteopenia and extensive degenerative changes. Cannot exclude nondisplaced fracture involving the pubis or left inferior pubic ramus. Right Hip CT: FINDINGS: Bones/joints: Cyst extending from the right kidney measuring 5.2 x 3.4 cm and a Hounsfield measurement of 12 which is incompletely visualized. No fracture. Diffuse joint space narrowing of the hip with degenerative spurring. No fractures. Soft tissues: Subcutaneous confluence and infiltration to the right of midline in the low back and into the pelvis with soft tissue gas which may reflect infection or cellulitis. There is a decubitus ulcer over the sacrococcygeal region with a collection of gas. Vasculature: There is moderate atherosclerotic calcification of the abdominal aorta with extension into the iliac arteries. Bowel: Sigmoid diverticulosis. Retroperitoneal space: There appears to be extension of fat into the inguinal regions bilaterally, right greater than left but appear to extend from retroperitoneal fat. IMPRESSION: 1. Decubitus ulceration over the sacrococcygeal region to the right of midline with collections of gas within soft tissues which are confluent with the osseous structures. No definite osseous erosion is noted at this time. There is subcutaneous infiltration confluence extending cephalad into the low right back and pelvis which may reflect cellulitis. 2. Fat filled bilateral inguinal hernias, right greater than left with question of extension from the retroperitoneum. 3. Sigmoid diverticulosis. 4. 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 No fracture. Lumbar Spine CT: FINDINGS: Tubes, catheters and devices: Pacemaker in position. Vertebrae: No acute compression or fracture. Mild anterior wedge configuration of T12 and to a lesser degree T11 which appear to be chronic. Mild superior endplate depression of L2 which is unchanged from a prior study. L1-L2: Mild interspace narrowing with vacuum phenomena and moderate facet arthropathy with low normal size of the spinal canal and adequate size of the neural foramen. L2-L3: Prominent interspace narrowing with moderate facet arthropathy and moderate secondary spinal stenosis. There is mild right neural foraminal stenosis. L3-L4: Prominent interspace narrowing with posterior osteophytes and moderate facet arthropathy. There is mild secondary spinal stenosis and borderline right and mild left neural foraminal stenosis. L4-L5: Moderate interspace narrowing with posterior osteophytes and disc protrusion. There is moderately prominent facet arthropathy with moderate secondary spinal stenosis and moderate left and mild right neural foraminal stenosis. L5-S1: Moderate interspace narrowing with posterolateral osteophytes and mild facet arthropathy. The spinal canal is of adequate size with moderate right and mild left neural foraminal stenosis. Other bones/joints: Osteopenia. Mediastinum: Minimal hiatal hernia. Vasculature: Splenic calcifications are noted. There is moderate atherosclerotic calcification of the abdominal aorta with extension into the iliac arteries. Soft tissues: Unremarkable. IMPRESSION: 1. Mild anterior wedge configuration of T12 and L1 and mild superior endplate depression of L2 which are similar to 02/27/2019. 2. Osteopenia. 3. Multilevel degenerative disc changes and facet arthropathy with varying degrees of multilevel spinal and neural foraminal stenosis. 4. No acute fracture or subluxation. Duplex US RLE: FINDINGS: Right deep veins: Unremarkable. The common femoral, femoral, proximal profunda femoral and popliteal veins are patent without thrombus. Normal Doppler waveforms. Normal compressibility and/or augmentation response. Right superficial veins: Unremarkable. Saphenofemoral junction is patent without thrombus. Soft tissues: Unremarkable. IMPRESSION: Negative right lower extremity venous duplex exam without evidence of deep venous thrombosis. CT Abd/pelvis: FINDINGS: Tubes, catheters and devices: Pacemaker in position. Lungs: Bibasilar infiltrates with interstitial coarsening and fibro-atelectatic change, left greater than right. Mediastinal space: Minimal hiatal hernia. Liver: Splenic and hepatic calcifications are noted. The liver and spleen are grossly intact on this noncontrast scan. No perihepatic or perisplenic fluid collections are identified. Gallbladder and bile ducts: There is a gallstone in the gallbladder measuring 5 mm. Pancreas: Normal. No ductal dilation. Spleen: Normal. No splenomegaly. Adrenal glands: Normal. No mass. Kidneys and ureters: There is a right renal cyst measuring 4.0 x 5.4 x 4.4 cm with a Hounsfield measurement of 7 and appears to be simple. No follow-up imaging is recommended. Stomach and bowel: There is colonic diverticulosis without evidence of diverticulitis. Appendix: There are no changes of appendicitis. A normal appendix is not seen. Intraperitoneal space: Unremarkable. No free air. No significant fluid collection. Vasculature: There is moderate atherosclerotic calcification of the abdominal aorta with extension into the iliac arteries. There is slight ectasia of the infrarenal aorta measuring 3.0 x 2.9 cm. Slight ectasia extends into the common iliac arteries measuring 15 mm bilaterally. Lymph nodes: Unremarkable. No enlarged lymph nodes. Urinary bladder: Unremarkable as visualized. Reproductive: Unremarkable as visualized. Bones/joints: Status post sternotomy. Degenerative changes are noted in the hips bilaterally, right greater than left. Facet arthropathy and degenerative disc changes are noted in the lumbar spine. There is slight wedge configuration of T11 and T12 which appear to be chronic and superior endplate depression of L2 which is similar to the prior study. Soft tissues: Small fat filled inguinal hernias, right greater than left. A which may extend from the retroperitoneal fat. Decubitus ulcer over the distal sacrum centered to the right of midline with confluence and gas. There is subcutaneous infiltration and some confluence which extends cephalad into the low back to the right of midline and may reflect cellulitis. IMPRESSION: 1. Bibasilar infiltrates with interstitial coarsening and fibro-atelectatic change. 2. Old granulomatous disease of the spleen and liver. 3. Degenerative changes of the hips, right greater than left and slight anterior wedge configuration of T11 and T12 and superior endplate depression of L2 which appear to be chronic. 4. Cholelithiasis. 5. Minimal hiatal hernia. 6. Colonic diverticulosis without diverticulitis. 7. Fat filled bilateral inguinal collections, right greater than left suggesting inguinal hernias which may be from the retroperitoneum. 8. Decubitus ulcer over the distal sacrum centered to the right. There is subcutaneous infiltration confluence extending cephalad into the low back to the right of midline which may reflect cellulitis. CXR: FINDINGS: Tubes, catheters and devices: New left atrial appendage exclusion device. Interval placement of pacemaker from the left. Lungs: The lungs are unchanged. There are no interval infiltrates. Pleural spaces: Unremarkable. No pleural effusion. No pneumothorax. Heart/Mediastinum: Persistent cardiomegaly. Bones/joints: Interval sternotomy since the prior study. IMPRESSION: 1. Interval sternotomy and left atrial appendage exclusion device since 08/06/2020. There is also interval placement of a pacemaker from the left. 2. Otherwise stable chest with persistent cardiomegaly. ] MICROBIOLOGY: Please see below. ASSESSMENT: [[This is an 85 y/o female with a pmh of cad s/p CABG, a-fib s/p pacer, chf, htn, copd, gout, hypothyroidism, depression who reports to our ED on 11/16 with a cc of right hip pain after a fall she suffered 4 days ago. Patient had recent prolonged complicated stay at [facility] to address her coronary artery disease. Patient presents to us with sepsis likely secondary to either pna or infected decubitus ulcer, right hip contusion, and acute anemia requiring transfusion]. . PLAN: 1. [Sepsis - Patient meets sepsis criteria with tmax of 100.9, transient bouts of tachycardia up to 90s, hypoxia of 84 on RA, hypotension with lowest sbp of 89 and leukocytosis of 10.8. - Likely secondary to either infected decubitus ulcer vs. pna - Begin sepsis bundle - 30cc/kg bolus and broad spectrum abx with vanco and cefepime - Blood cultures sent - UA w reflex culture ordered - Dr. Crockett, general surgery, has been consulted by ED provider and will examine decubitus ulcer in the am. Assistance and recommendations greatly appreciated. - Admit to pcu for w/u and tx 2. Acute anemia - Patient has acute macrocytic anemia with MCV of 102.3, hb of 7 - D/t patient cad, transfusion is indicated. Goal hb is >8. Consent form has been signed - Will give 2 units prbc - Iron studies, b12, folate, occult stool ordered 3. Recurrent falls - Potentially secondary to deconditioning from prolonged recent hospital stay - Can consider pt/ot once acute issues have been addressed 4. R hip contusion - Thorough imaging performed in the ED show no acute fracture. Pain 2/2 contusion - RICE - Tylenol for pain for now 5. CAD - continue nitro, asa 6. CHF - patient not currently fluid overloaded - continue at home metoprolol, lasix 7. HLD - continue atorvastatin 8. A-fib s/p pacer - patient not currently on anticoagulation - consider beginning lovenox once stool occult confirmed negative 9. Gout - continue ursodiol 10. Depression/anxiety - continue sertraline, mirtazapine, seroquel 11. Hypothyroidism - continue synthroid DVT prophylaxis - mechanical for now]. Vital Signs Vital Signs Date Time Temp Pulse Resp B/P (MAP) Pulse Ox O2 Delivery O2 Flow Rate FiO2 11/17/20 00:47 100.9 19 99/52 (68) 95 Nasal Cannula 1.0 11/17/20 00:45 80 Laboratory Data Labs 24H Laboratory Tests 2 11/16/20 21:52: Immature Granulocyte % (Auto) 0.6, Neutrophils (%) (Auto) 88.5H, Lymphocytes (%) (Auto) 3.3L, Monocytes (%) (Auto) 7.5, Eosinophils (%) (Auto) 0.0, Basophils (%) (Auto) 0.1, Neutrophils # (Auto) 9.5H, Lymphocytes # (Auto) 0.4L, Monocytes # (Auto) 0.8, Eosinophils # (Auto) 0.0, Basophils # (Auto) 0.0, Nucleated Red Blood Cells % (auto) 0.0 11/16/20 21:59: POC Glucose (Misc Panel) 106H, POC Sodium (Misc Panel) 137, POC Potassium (Misc Panel) 4.0, POC Chloride (Misc Panel) 98, POC Total CO2 (Misc Panel) 25.0, POC Blood Urea Nitrogen (Misc Panel 25, POC Ionized Calcium (Misc Panel) 4.6, POC Creatinine (Misc Panel) 1.6H, POC Hematocrit (Misc Panel) 18.0L 11/17/20 00:03: Reticulocyte # (auto) 86.4H, Percent Reticulocyte Count 4.7H, Reticulocyte Hemoglobin Equivalent 35.3, Iron Level 24L, Total Iron Binding Capacity 125L, Transferrin % Saturation 19.2, Ferritin 587H 11/17/20 00:16: Coronavirus (COVID-19)(PCR) NEGATIVE, Influenza Type A (RT-PCR) NEGATIVE, Influenza Type B (RT-PCR) NEGATIVE, Respiratory Syncytial Virus (PCR) NEGATIVE 11/17/20 02:42: CBC/BMP Laboratory Tests 11/16/20 21:52 Microbiology Microbiology 11/17/20 Blood Culture, Received Pending 11/17/20 Blood Culture, Received Pending Home Medications Scheduled Aspirin (Aspirin) 81 Mg Tab.chew, 81 MG PO DAILY Atorvastatin Calcium (Atorvastatin Calcium) 40 Mg Tablet, 40 MG PO QPM Docusate Sodium (Stool Softener) 100 Mg Capsule, 100 MG PO DAILY Ferrous Sulfate (Ferrous Sulfate) 220 Mg/5 Ml Elixir, 5 MG PO BID Folic Acid (Folic Acid) 1 Mg Tablet, 1 MG PO DAILY Furosemide (Furosemide) 20 Mg Tablet, 20 MG PO DAILY Levothyroxine Sodium (Levothyroxine Sodium) 100 Mcg Tablet, 100 MCG PO DAILY Metoprolol Tartrate (Metoprolol Tartrate) 25 Mg Tablet, 12.5 MG PO BID Mirtazapine (Remeron) 15 Mg Tablet, 15 MG PO QPM Nitroglycerin (Nitroglycerin) 0.4 Mg Tab.subl, 0.4 MG SL ASDIRECTED for chest pain 1st sign of attack; may repeat every 5 mins; if pain persists after 3 in 15 min, medical attention is recommended Quetiapine Fumarate (Quetiapine Fumarate) 25 Mg Tablet, 25 MG PO QPM Sertraline Hcl (Sertraline HCl) 50 Mg Tablet, 50 MG PO DAILY Ursodiol (Ursodiol) 300 Mg Capsule, 300 MG PO BID Scheduled PRN Ipratropium/Albuterol Sulfate (Iprat-Albut 0.5-3(2.5) mg/3 ml) 3 Ml Ampul.neb, 3 ML NEB BID PRN for SHORTNESS OF BREATH Melatonin (Melatonin) 3 Mg Tab.rapdis, 3 MG PO QPM PRN for SLEEP Allergies Coded Allergies: codeine (Verified Adverse Reaction, Mild, UPSET STOMACH, 07/03/20) tramadol (Verified Adverse Reaction, Mild, HEADACHE, 07/03/20) A-FIB/CHADSVASC A-FIB History Current/History of A-Fib/PAF?: Yes Current PO Anticoag Therapy: No (poss gi bleed) BUFFY GODOY Nov 17, 2020 03:08
[2020-11-17] MEDS ORDERED: NITROGLYCERIN 0.4 MG SUBL TABLET SL SCH (03:10)
[2020-11-17] MEDS ORDERED: VANCOMYCIN HCL 750 MG, VIAL MATE ADAPTER 1 EACH in NS 250 ML IV ONE ×2 (04:00→05:00)
[2020-11-17] MEDS: ATORVASTATIN 20 MG TAB PO SCH ×2 (04:10→21:22)
[2020-11-17] MEDS ORDERED: VANCOMYCIN HCL 500 MG in D5W MINI-BAG PLUS 100 ML IV ONE ×2 (05:00→06:00)
[2020-11-17] MEDS: MIRTAZAPINE 15 MG TAB PO SCH ×2 (05:09→21:22)
[2020-11-17] MEDS: QUEtiapine FUMARATE 25 MG TAB PO SCH ×2 (05:09→21:22)
[2020-11-17] MEDS: LEVOTHYROXINE 100MCG TABLET (0.1MG) PO SCH (05:58)
[2020-11-17 08:22] LABS: BLOOD UREA NITROGEN 26 MG/DL (7-18); CALCIUM LEVEL 7.4 MG/DL (8.8-10.2); CARBON DIOXIDE LEVEL 26 MEQ/L (21-32); CHLORIDE LEVEL 108 MEQ/L (98-107); CK-MB VALUE MASS 1.1 NG/ML (<3.6); CPK CREATINE PHOSPHOKINASE 31 U/L (26-192); CREATININE FOR GFR 1.47 MG/DL (0.55-1.30); GLOMERULAR FILTRATION RATE 35.9 (>32); GLUCOSE, FASTING 138 MG/DL (70-100); MAGNESIUM LEVEL 1.4 MG/DL (1.8-2.4); MB/CK RELATIVE INDEX 3.55 (< OR =4); POTASSIUM SERUM 3.9 MEQ/L (3.5-5.1); SODIUM LEVEL 140 MEQ/L (136-145); TROPONIN I 0.03 NG/ML (< 0.10)
[2020-11-17] MEDS: METOPROLOL TART 12.5 MG PER 1/2 TAB PO SCH ×2 (09:00→21:22)
[2020-11-17] MEDS ORDERED: FUROSEMIDE 20 MG TAB PO SCH (09:00)
[2020-11-17] MEDS ORDERED: NS 500 ML IV ONE ×2 (09:25→09:40)
[2020-11-17] MEDS ORDERED: NS 1,000 ML IV ONE (09:30)
[2020-11-17] MEDS ORDERED: MAG SULF 1GM/100ML (MAG RUN) 1 GM in IV 1 EA IV ONE (10:00)
[2020-11-17] MEDS: CEFEPIME HCL 1 GM in D5W MINI-BAG PLUS 50 ML IV SCH ×2 (11:20→21:21)
[2020-11-17] MEDS: ASPIRIN 81 MG CHEW TABLET PO SCH (11:21)
[2020-11-17] MEDS: DOCUSATE SODIUM 100MG CAPSULE PO SCH ×2 (11:21→21:21)
[2020-11-17] MEDS: SERTRALINE HCL 50 MG TAB PO SCH (11:21)
[2020-11-17] MEDS: FOLIC ACID 1 MG TAB PO SCH (11:21)
[2020-11-17] MEDS: ursodioL 300 MG CAP PO SCH ×2 (11:21→21:22)
[2020-11-17] MEDS: MOM 30ML SUSPENSION UDC PO PRN (11:22)
--- NOTE | 2020-11-17 12:20 | IPNPDOC ---
Text Note Date of Service The patient was seen on 11/17/20. NOTE SUBJECTIVE: -Feels weak and reports feeling generally unwell, no elías pain -Hypotensive this AM to SBP 75, after 1.5L total fluids since admission, although on 2L appears dry, gave 500cc bolus with improvement of SBP to 90s, now receiving the 2u of pRBCs OBJECTIVE: VITAL SIGNS: Please see below. GENERAL APPEARANCE: Alert and oriented, NAD HEENT: NCAT, EOMI, dry MM CARDIOVASCULAR: RRR, has loud systolic murmur heard throughout the precordium, has PPM in place, has sternotomy scar LUNGS: Crackles in lower lung jaime bilaterally, no wheezing, on 2L NC ABDOMEN: Normoactive bowel sounds, soft, NTND EXTREMITIES: No noted edema, WWP NEUROLOGICAL: Speech clear. A+Ox3. No focal deficits Skin: Has pressure decubitus ulcer that was debrided prior to admission and looks great, packed, no surrounding erythema or drainage. LABORATORY DATA: WBC 10.8 hgb 7 (pending 2 units) platelets 127 na 140 K 3.9 Cr 1.47 mag 1.4 IMAGING: Hip/pelvis XR: FINDINGS: Age-related osteopenia and advanced degenerative changes noted throughout the visualized lumbar spine, pelvis and hips. No definite acute right hip fracture is identified although evaluation is limited by degenerative changes. Subtle nondisplaced fracture(s) involving the pubis and left inferior pubic ramus cannot be excluded and should be correlated with physical examination. IMPRESSION: Limited by osteopenia and extensive degenerative changes. Cannot exclude nondisplaced fracture involving the pubis or left inferior pubic ramus. Right Hip CT: FINDINGS: Bones/joints: Cyst extending from the right kidney measuring 5.2 x 3.4 cm and a Hounsfield measurement of 12 which is incompletely visualized. No fracture. Diffuse joint space narrowing of the hip with degenerative spurring. No fractures. Soft tissues: Subcutaneous confluence and infiltration to the right of midline in the low back and into the pelvis with soft tissue gas which may reflect infection or cellulitis. There is a decubitus ulcer over the sacrococcygeal region with a collection of gas. Vasculature: There is moderate atherosclerotic calcification of the abdominal aorta with extension into the iliac arteries. Bowel: Sigmoid diverticulosis. Retroperitoneal space: There appears to be extension of fat into the inguinal regions bilaterally, right greater than left but appear to extend from retroperitoneal fat. IMPRESSION: 1. Decubitus ulceration over the sacrococcygeal region to the right of midline with collections of gas within soft tissues which are confluent with the osseous structures. No definite osseous erosion is noted at this time. There is subcutaneous infiltration confluence extending cephalad into the low right back and pelvis which may reflect cellulitis. 2. Fat filled bilateral inguinal hernias, right greater than left with question of extension from the retroperitoneum. 3. Sigmoid diverticulosis. 4. 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 No fracture. Lumbar Spine CT: FINDINGS: Tubes, catheters and devices: Pacemaker in position. Vertebrae: No acute compression or fracture. Mild anterior wedge configuration of T12 and to a lesser degree T11 which appear to be chronic. Mild superior endplate depression of L2 which is unchanged from a prior study. L1-L2: Mild interspace narrowing with vacuum phenomena and moderate facet arthropathy with low normal size of the spinal canal and adequate size of the neural foramen. L2-L3: Prominent interspace narrowing with moderate facet arthropathy and moderate secondary spinal stenosis. There is mild right neural foraminal stenosis. L3-L4: Prominent interspace narrowing with posterior osteophytes and moderate facet arthropathy. There is mild secondary spinal stenosis and borderline right and mild left neural foraminal stenosis. L4-L5: Moderate interspace narrowing with posterior osteophytes and disc protrusion. There is moderately prominent facet arthropathy with moderate secondary spinal stenosis and moderate left and mild right neural foraminal stenosis. L5-S1: Moderate interspace narrowing with posterolateral osteophytes and mild facet arthropathy. The spinal canal is of adequate size with moderate right and mild left neural foraminal stenosis. Other bones/joints: Osteopenia. Mediastinum: Minimal hiatal hernia. Vasculature: Splenic calcifications are noted. There is moderate atherosclerotic calcification of the abdominal aorta with extension into the iliac arteries. Soft tissues: Unremarkable. IMPRESSION: 1. Mild anterior wedge configuration of T12 and L1 and mild superior endplate depression of L2 which are similar to 02/27/2019. 2. Osteopenia. 3. Multilevel degenerative disc changes and facet arthropathy with varying degrees of multilevel spinal and neural foraminal stenosis. 4. No acute fracture or subluxation. Duplex US RLE: FINDINGS: Right deep veins: Unremarkable. The common femoral, femoral, proximal profunda femoral and popliteal veins are patent without thrombus. Normal Doppler waveforms. Normal compressibility and/or augmentation response. Right superficial veins: Unremarkable. Saphenofemoral junction is patent without thrombus. Soft tissues: Unremarkable. IMPRESSION: Negative right lower extremity venous duplex exam without evidence of deep venous thrombosis. CT Abd/pelvis: FINDINGS: Tubes, catheters and devices: Pacemaker in position. Lungs: Bibasilar infiltrates with interstitial coarsening and fibro-atelectatic change, left greater than right. Mediastinal space: Minimal hiatal hernia. Liver: Splenic and hepatic calcifications are noted. The liver and spleen are grossly intact on this noncontrast scan. No perihepatic or perisplenic fluid collections are identified. Gallbladder and bile ducts: There is a gallstone in the gallbladder measuring 5 mm. Pancreas: Normal. No ductal dilation. Spleen: Normal. No splenomegaly. Adrenal glands: Normal. No mass. Kidneys and ureters: There is a right renal cyst measuring 4.0 x 5.4 x 4.4 cm with a Hounsfield measurement of 7 and appears to be simple. No follow-up imaging is recommended. Stomach and bowel: There is colonic diverticulosis without evidence of diverticulitis. Appendix: There are no changes of appendicitis. A normal appendix is not seen. Intraperitoneal space: Unremarkable. No free air. No significant fluid collection. Vasculature: There is moderate atherosclerotic calcification of the abdominal aorta with extension into the iliac arteries. There is slight ectasia of the infrarenal aorta measuring 3.0 x 2.9 cm. Slight ectasia extends into the common iliac arteries measuring 15 mm bilaterally. Lymph nodes: Unremarkable. No enlarged lymph nodes. Urinary bladder: Unremarkable as visualized. Reproductive: Unremarkable as visualized. Bones/joints: Status post sternotomy. Degenerative changes are noted in the hips bilaterally, right greater than left. Facet arthropathy and degenerative disc changes are noted in the lumbar spine. There is slight wedge configuration of T11 and T12 which appear to be chronic and superior endplate depression of L2 which is similar to the prior study. Soft tissues: Small fat filled inguinal hernias, right greater than left. A which may extend from the retroperitoneal fat. Decubitus ulcer over the distal sacrum centered to the right of midline with confluence and gas. There is subcutaneous infiltration and some confluence which extends cephalad into the low back to the right of midline and may reflect cellulitis. IMPRESSION: 1. Bibasilar infiltrates with interstitial coarsening and fibro-atelectatic change. 2. Old granulomatous disease of the spleen and liver. 3. Degenerative changes of the hips, right greater than left and slight anterior wedge configuration of T11 and T12 and superior endplate depression of L2 which appear to be chronic. 4. Cholelithiasis. 5. Minimal hiatal hernia. 6. Colonic diverticulosis without diverticulitis. 7. Fat filled bilateral inguinal collections, right greater than left suggesting inguinal hernias which may be from the retroperitoneum. 8. Decubitus ulcer over the distal sacrum centered to the right. There is subcutaneous infiltration confluence extending cephalad into the low back to the right of midline which may reflect cellulitis. CXR: FINDINGS: Tubes, catheters and devices: New left atrial appendage exclusion device. Interval placement of pacemaker from the left. Lungs: The lungs are unchanged. There are no interval infiltrates. Pleural spaces: Unremarkable. No pleural effusion. No pneumothorax. Heart/Mediastinum: Persistent cardiomegaly. Bones/joints: Interval sternotomy since the prior study. IMPRESSION: 1. Interval sternotomy and left atrial appendage exclusion device since 08/06/2020. There is also interval placement of a pacemaker from the left. 2. Otherwise stable chest with persistent cardiomegaly. ] MICROBIOLOGY: Please see below. ASSESSMENT: 85 y/o W with a history of cad s/p CABG, a-fib, recently s/p PPM, chf, htn, copd, gout, hypothyroidism, depression who presented to the ED on 11/16 for right hip pain after a fall and now admitted for sepsis presumed 2/2 pna as well as acute on chronic anemia requiring transfusion. . PLAN: 1.Sepsis: meets sepsis criteria with tmax of 100.9, transient bouts of tachycardia up to 90s, hypoxia of 84 on RA, hypotension with lowest sbp of 75 this AM - Likely secondary to PNA - Very unlikely due to pressure decubitus ulcer that was debrided prior to admission and looks great, packed, no surrounding erythema or drainage. Will cancel surgery consult, no indication to debride. - On empiric vanc and cefepime. send MRSA PCR - Blood cultures sent, f/u - UA ray 2. Acute on chronic anemia - Patient has acute macrocytic anemia with MCV of 102.3, hb of 7 - With history of cad, transfusion is indicated. Goal hb is >8. Pending 2u pRBCs ordered. - Iron studies, b12, folate, occult stool ordered. F/u 3. Recurrent falls - Potentially secondary to deconditioning from prolonged recent hospital stay - PT/OT 4. R hip contusion - Thorough imaging performed in the ED show no acute fracture. Pain 2/2 contusion - RICE - Tylenol for pain for now PRN 5. CAD - continue nitro PRN, asa 6. CHF - patient not currently fluid overloaded - Hold metoprolol, lasix while septic 7. HLD - continue atorvastatin 8. A-fib s/p pacer - patient not currently on anticoagulation, however is anemic as well requiring blood, will have to complete anemia workup and note if H/H drops acutely after which there may be discussion about AC. 9. Gout - continue ursodiol 10. Depression/anxiety - continue sertraline, mirtazapine, seroquel 11. Hypothyroidism - continue synthroid DVT prophylaxis - mechanical for now VS,Fishbone, I+O VS, Fishbone, I+O Laboratory Tests 11/16/20 21:52 11/17/20 07:24 Vital Signs Date Time Temp Pulse Resp B/P (MAP) Pulse Ox O2 Delivery O2 Flow Rate FiO2 11/17/20 10:06 98.9 80 22 83/47 100 Nasal Cannula 3.0 LIBRA BRADFORD MD Nov 17, 2020 12:20
[2020-11-17 16:12] LABS: HEMATOCRIT 23.9 % (36.0-47.0); HEMOGLOBIN 8.2 g/dl (12.0-15.5); MEAN CORPUSCULAR HEMOGLOBIN 35.2 pg (27.0-33.0); MEAN CORPUSCULAR HGB CONC 34.3 g/dl (32.0-36.5); MEAN CORPUSCULAR VOLUME 102.6 fl (80.0-96.0); RED BLOOD COUNT 2.33 10^6/uL (4.00-5.40); WHITE BLOOD COUNT 13.3 10^3/uL (4.0-10.0)
[2020-11-17 16:44] LABS: CALCIUM LEVEL 7.4 MG/DL (8.8-10.2); CK-MB VALUE MASS 1.6 NG/ML (<3.6); CREATININE FOR GFR 1.52 MG/DL (0.55-1.30); GLOMERULAR FILTRATION RATE 34.5 (>32); MB/CK RELATIVE INDEX 5.93 (< OR =4); POTASSIUM SERUM 4.1 MEQ/L (3.5-5.1); TROPONIN I 0.04 NG/ML (< 0.10)
[2020-11-17 17:04] LABS: PLATELET COUNT, AUTOMATED 89 10^3/uL (150-450)
[2020-11-17 22:59] LABS: CK-MB VALUE MASS 1.3 NG/ML (<3.6); MB/CK RELATIVE INDEX 6.19 (< OR =4); TROPONIN I 0.04 NG/ML (< 0.10)
[2020-11-18] VITALS (9 sets, daily range): BP systolic 96–132; BP diastolic 54–67; O2SAT 94–97
[2020-11-18] MEDS: LEVOTHYROXINE 100MCG TABLET (0.1MG) PO SCH (05:09)
[2020-11-18] MEDS: VANCOMYCIN HCL 1,000 MG, VIAL MATE ADAPTER 1 EACH in NS 250 ML IV SCH (05:09)
[2020-11-18 05:10] LABS: HEMATOCRIT 23.7 % (36.0-47.0); MEAN CORPUSCULAR HEMOGLOBIN 34.8 pg (27.0-33.0); MEAN CORPUSCULAR HGB CONC 33.8 g/dl (32.0-36.5)
[2020-11-18 05:19] LABS: PLATELET COUNT, AUTOMATED 84 10^3/uL (150-450)
[2020-11-18 05:31] LABS: CALCIUM LEVEL 7.7 MG/DL (8.8-10.2); CREATININE FOR GFR 1.5 MG/DL (0.55-1.30); GLOMERULAR FILTRATION RATE 35.1 (>32); MAGNESIUM LEVEL 1.9 MG/DL (1.8-2.4); POTASSIUM SERUM 4.3 MEQ/L (3.5-5.1)
[2020-11-18] MEDS: CEFEPIME HCL 1 GM in D5W MINI-BAG PLUS 50 ML IV SCH ×2 (09:37→20:02)
[2020-11-18] MEDS: ASPIRIN 81 MG CHEW TABLET PO SCH (09:37)
[2020-11-18] MEDS: METOPROLOL TART 12.5 MG PER 1/2 TAB PO SCH ×2 (09:37→20:02)
[2020-11-18] MEDS: SERTRALINE HCL 50 MG TAB PO SCH (09:37)
[2020-11-18] MEDS: DOCUSATE SODIUM 100MG CAPSULE PO SCH ×2 (09:37→20:02)
[2020-11-18] MEDS: ursodioL 300 MG CAP PO SCH ×2 (09:38→20:02)
[2020-11-18] MEDS: FOLIC ACID 1 MG TAB PO SCH (09:38)
--- NOTE | 2020-11-18 16:17 | CR ---
"NEPHROLOGY CONSULTATION DATE: 11/18/2020 REQUESTING PHYSICIAN: Dr. Domitila Leary CONSULTING PHYSICIAN: Dr. Asuncion Levy REASON FOR CONSULTATION: Acute kidney injury. HISTORY OF PRESENT ILLNESS: Mrs. Johnston is an 85-year-old female with multiple chronic medical problems including history of hypothyroidism, hypertension, coronary artery disease, status post recent coronary artery bypass surgery, atrial fibrillation, status post pacemaker placement. She had a complicated hospitalization following her coronary artery bypass surgery at [facility] and developed a sacral decubitus ulcer which was dbrided just on November 16. The patient fell a few days ago at home and came to the Emergency Room on the with a complaint of right hip pain. She was found to be hypotensive and also had leukocytosis, fever, and was admitted with possible sepsis. She is also noticed to have severe anemia for which she has been transfused now. Her kidney function is diminished due to which a renal consult was requested and the patient is seen this morning. PAST MEDICAL AND SURGICAL HISTORY: The patient's past medical and surgical history is significant for: 1. Coronary artery disease - status post CABG. 2. Atrial fibrillation - status post pacemaker placement. 3. Possible valve replacement during the same surgery for coronary artery bypass surgery. 4. History of chronic obstructive pulmonary disease. 5. Congestive heart failure. 6. Gout. 7. Hypothyroidism. 8. Depression. PAST SURGICAL HISTORY: The patient's past surgical history is significant for: 1. Bilateral cataract surgery. 2. Coronary artery bypass surgery. 3. Pacemaker placement. 4. Unspecified heart valve replacement. 5. Left total knee. 6. Right arm surgery for fracture. FAMILY HISTORY: Noncontributory. | PERSONAL AND SOCIAL HISTORY: The patient denies any alcohol, tobacco or drug use. REVIEW OF SYSTEMS: Constitutional: She did fever on admission. She denies any headache. Ears, nose and throat: Unremarkable. Cardiovascular: Coronary artery disease, atrial fibrillation, and congestive heart failure. She denies any leg edema or difficulty breathing. Respiratory: Negative for hemoptysis or pleuritic type of chest pain. She is noticed to have infiltrates on her imaging. Gastrointestinal: Negative for vomiting, diarrhea or melanotic stools. She was found to be severely anemic. Genitourinary: Negative for dysuria or hematuria. Musculoskeletal: Significant for a fall at home four days prior to admission. She had a contusion to her right hip. She also had a sacral decubitus ulcer. Endocrine: Hypothyroidism but no history of diabetes. Hematological/Oncological: Severe anemia requiring transfusion. Psychosocial: Depression. Neurological: Negative for seizures or strokes. PHYSICAL EXAMINATION: GENERAL APPEARANCE: Elderly lady laying in the bed without any acute distress. VITAL SIGNS: Temperature is 97.1 degrees Fahrenheit, heart rate 80 per minute, respiratory rate 20 per minute, blood pressure 131/66 mm of mercury and oxygen saturation is 94% on 2 liters oxygen. HEENT: Head is atraumatic. NECK: Supple and without JVD or thyroid enlargement. HEART: Irregular in rhythm. LUNGS: Slightly diminished breath sounds at the bases. ABDOMEN: Soft and nontender and bowel sounds are normal. EXTREMITIES: Without any cyanosis or clubbing. She has a sacral decubitus ulcer which is covered with dressings. SKIN: No rash noticed on the skin. NEUROLOGICAL: She is awake, alert and without any focal deficits. LABORATORY DATA: WBC count is 8.0 today, hemoglobin 8.0 and hematocrit 23.7. On admission her hemoglobin was 7 and hematocrit 22. BUN is 32 and creatinine 1.5 which is essentially unchanged since yesterday. Sodium 140, potassium 4.3, CO2 28 and calcium 7.7. Urinalysis negative for protein or blood. IMAGING: She had a CAT scan of the abdomen and pelvis done on November 16 which did not show any hydronephrosis. Right renal cyst was noticed which is about 5.4 into 4 cm in size. PROBLEMS: 1. [id number] kidney disease she probably has mostly chronic kidney disease as her kidney function has essentially not changed since admission. Her initial creatinine was 1.6 and the lowest creatinine was 1.47. I feel this is probably her baseline function. Electrolytes are within normal range. She is currently not on any diuretics or angiotensin receptor blockers. 2. Anemia most likely her anemia is related to recent hospitalization and decubitus ulcer. She has been transfused and likely to require further transfusion. I will hold off on any intravenous iron due to risk for bacteremia. 3. Sepsis - The patient does have sacral decubitus ulcer with some suspicion of gas on recent imaging. She is also being treated for pneumonia. She is receiving intravenous Vancomycin and Cefepime. Her Vancomycin level will need to be monitored and kidney function also will need to be monitored. MEDICATIONS: Her current medications include: 1. Cefepime one gram every 12 hours. 2. Vancomycin one gram every 24 hours. 3. Tylenol as needed. 4. DuoNebs as needed. 5. Aspirin 81 mg daily. 6. Atorvastatin 40 mg daily. 7. Colace 100 mg twice daily. 8. Folic Acid one mg daily. 9. Levothyroxine 100 mcg daily. 10. Metoprolol 12.5 mg twice daily. 11. Remeron 15 mg at bedtime. 12. Nitroglycerin as needed for chest pain. 13. Zofran 4 mg as needed for nausea. 14. Seroquel 25 mg at bedtime. 15. Sertraline 50 mg daily. 16. Ursodiol 300 mg twice daily. ALLERGIES: 1. Codeine. 2. Tramadol. Thank you for involving me in the care of Mrs. Johnston. I will follow her along with you."
[2020-11-18] MEDS: MORPHINE 2 MG/ML 1ML VIAL (J2270) IV PRN (17:31)
--- NOTE | 2020-11-18 17:53 | IPNPDOC ---
Subjective Date Seen The patient was seen on 11/18/20. Subjective Chief Complaint/HPI complains of some right hip pain. No fever in the past 24 hours. Blood cultures are coming back positive. Objective Physical Examination General Exam: Positive: Alert, Cooperative, No Acute Distress Eye Exam: Positive: PERRLA, Conjunctiva & lids normal, EOMI; Negative: Sclera icteric ENT Exam: Positive: Atraumatic, Mucous membr. moist/pink, Pharynx Normal Neck Exam: Positive: Supple; Negative: JVD, thyromegaly Chest Exam: Positive: Normal air movement, Other (bibasillar crackles) Heart Exam: Positive: Rate Normal, Regular Rhythm, Normal S1, Normal S2, Murmurs (systolic murmur heard all over the precordium); Negative: Rubs Abdomen Exam: Positive: Normal bowel sounds, Soft; Negative: Tenderness, Hepatospenomegaly Extremity Exam: Negative: Clubbing, Cyanosis, Edema Skin Exam: Positive: Breakdown (Has pressure decubitus ulcer that was debrided prior to admission and packed, no surrounding erythema or drainage.) Neuro Exam: Positive: Normal Speech, Strength at 5/5 X4 ext, Normal Tone Psych Exam: Positive: Oriented x 3 Assessment /Plan Assessment 85 y/o W with a history of cad s/p CABG in July 2020, Atrial appendicular excl usion device placement, Pacemaker placement, a-fib, chf, htn, copd, gout, hypothyroidism, depression, sacral decubital ulcer, who presented to the ED on 11/16 for right hip pain after a fall and now admitted for sepsis presumed 2/2 pna as well as acute on chronic anemia requiring transfusion. Sepsis likely due to Pneumonia. CT abd and pelvis showed: Bibasilar infiltrates with interstitial coarsening and fibro-atelectatic change, left greater than right. On empiric vanc and cefepime. MRSA PCR is negative. Blood cultures 4/4 from 11/17 positive for gram positive cocci in chairs, clusters and pairs, staph aureus. More cultures ordered. UA bland Staph bacteremia has pacemaker in place, has atrial appendicular occlusion device will get TTE to evaluate for vegetations. ID consult Acute on chronic anemia Patient has macrocytic anemia with MCV of 102.3, hb of 7 With history of cad, transfusion is indicated. Goal hb is >8. 2u pRBCs transfused Iron studies no significant iron deficiency Follow up b12, folate, occult stool ordered. GEOVANNI creatinine stable at 1.4 to 1.5 range will monitor avoid nephrotoxic medications. Thrombocytopenia chronic No heparin. Recurrent falls Potentially secondary to deconditioning from prolonged recent hospital stay PT/OT R hip contusion Thorough imaging performed in the ED show no acute fracture. Pain 2/2 contusion RICE Tylenol for pain for now PRN CAD/CABG continue nitro PRN, asa, statin CHF patient not currently fluid overloaded Hold metoprolol, lasix while septic HLD continue atorvastatin A-fib s/p pacer patient not currently on anticoagulation, however is anemic as well requiring blood, will have to complete anemia workup and note if H/H drops acutely after which there may be discussion about AC. With her history of falls i do not think she is a good candidate for fpc AC. Hold metoprolol Gout continue ursodiol Depression/anxiety continue sertraline, mirtazapine, seroquel Hypothyroidism continue synthroid Vertebral compression fractures. T11, T12, L2 chronic Bilateral inguinal hernias. fat filled. Diverticulosis Hiatal hernia small Plan/VTE VTE Prophylaxis Ordered?: Yes VS, I&O, 24H, Fishbone Vital Signs/I&O Vital Signs Date Time Temp Pulse Resp B/P (MAP) Pulse Ox O2 Delivery O2 Flow Rate FiO2 11/18/20 04:00 97 Nasal Cannula 1.0 11/18/20 04:00 97.3 80 16 96/55 (69) I&O- Last 24 Hours up to 6 AM 11/18/20 06:00 Intake Total 3322 ml Balance 3322 ml Laboratory Data 24H LABS Laboratory Tests 2 11/17/20 15:57: Nucleated Red Blood Cells % (auto) 0.0, Immature Platelet Fraction 7.3, Anion Gap 7L, Glomerular Filtration Rate 34.5, Calcium Level 7.4L, Magnesium Level 2.0, Total Creatine Kinase 27, Creatine Kinase MB 1.6, Creatine Kinase MB Relative Index 5.93H, Troponin I 0.04# 11/17/20 22:24: Total Creatine Kinase 21L, Creatine Kinase MB 1.3, Creatine Kinase MB Relative Index 6.19H, Troponin I 0.04 11/18/20 04:48: Nucleated Red Blood Cells % (auto) 0.0, Anion Gap 4L, Glomerular Filtration Rate 35.1, Calcium Level 7.7L, Magnesium Level 1.9 CBC/BMP Laboratory Tests 11/17/20 15:57 11/18/20 04:48 Microbiology Microbiology 11/17/20 Blood Culture, Received Pending 11/17/20 Blood Culture, Received Pending 11/17/20 Blood Culture - Preliminary, Resulted 11/17/20 Blood Culture - Preliminary, Resulted Miley Preciado MD Nov 18, 2020 08:36
[2020-11-18] MEDS: MIRTAZAPINE 15 MG TAB PO SCH (20:02)
[2020-11-18] MEDS: QUEtiapine FUMARATE 25 MG TAB PO SCH (20:02)
[2020-11-18] MEDS: ATORVASTATIN 20 MG TAB PO SCH (20:03)
[2020-11-18] MEDS: oxyCODONE 5MG TAB PO PRN (20:03)
[2020-11-18] MEDS ORDERED: ACETAMINOPHEN 500 MG TAB PO SCH (21:00)
[2020-11-18] MEDS ORDERED: traMADol 50 MG TAB PO SCH (21:00)
[2020-11-19] VITALS (8 sets, daily range): BP systolic 101–145; BP diastolic 50–90
[2020-11-19] MEDS: ULTRACET TAB PO SCH ×3 (00:25→23:06)
[2020-11-19 05:21] LABS: HEMATOCRIT 22.6 % (36.0-47.0); HEMOGLOBIN 7.6 g/dl (12.0-15.5); MEAN CORPUSCULAR HEMOGLOBIN 34.4 pg (27.0-33.0); MEAN CORPUSCULAR HGB CONC 33.6 g/dl (32.0-36.5); MEAN CORPUSCULAR VOLUME 102.3 fl (80.0-96.0); RED BLOOD COUNT 2.21 10^6/uL (4.00-5.40); WHITE BLOOD COUNT 6.3 10^3/uL (4.0-10.0)
[2020-11-19 05:22] LABS: PLATELET COUNT, AUTOMATED 86 10^3/uL (150-450)
[2020-11-19 05:40] LABS: CALCIUM LEVEL 7.9 MG/DL (8.8-10.2); CREATININE FOR GFR 1.21 MG/DL (0.55-1.30); GLOMERULAR FILTRATION RATE 44.9 (>32); MAGNESIUM LEVEL 2.1 MG/DL (1.8-2.4); POTASSIUM SERUM 4.7 MEQ/L (3.5-5.1); VANCOMYCIN LEVEL TROUGH 14.3 UG/ML (10.0-20.0)
[2020-11-19] MEDS: VANCOMYCIN HCL 1,000 MG, VIAL MATE ADAPTER 1 EACH in NS 250 ML IV SCH (05:55)
[2020-11-19] MEDS: LEVOTHYROXINE 100MCG TABLET (0.1MG) PO SCH (05:55)
[2020-11-19] MEDS: CEFEPIME HCL 1 GM in D5W MINI-BAG PLUS 50 ML IV SCH (08:47)
[2020-11-19] MEDS: SERTRALINE HCL 50 MG TAB PO SCH (08:48)
[2020-11-19] MEDS: ASPIRIN 81 MG CHEW TABLET PO SCH (08:48)
[2020-11-19] MEDS: ursodioL 300 MG CAP PO SCH ×2 (08:48→20:39)
[2020-11-19] MEDS: DOCUSATE SODIUM 100MG CAPSULE PO SCH ×2 (08:48→20:39)
[2020-11-19] MEDS: FOLIC ACID 1 MG TAB PO SCH (08:48)
--- NOTE | 2020-11-19 12:54 | IPNPDOC ---
Subjective Date Seen The patient was seen on 11/19/20. Subjective Chief Complaint/HPI Patient seen at bedside this morning. Patient says she just wants to go home. Patient says that she was in at [facility] for 57 days says she had a bypass surgery therapy and many other things done however could not remember what other procedures were done. Says her daughter took care of everything. No fever in the past 24 hours. Denies having any pain today and does not even remember why she had the pain yesterday. Seems like her short-term memory is very poor at this time. Objective Physical Examination General Exam: Positive: Alert, Cooperative, No Acute Distress Eye Exam: Positive: PERRLA, Conjunctiva & lids normal, EOMI; Negative: Sclera icteric ENT Exam: Positive: Atraumatic, Mucous membr. moist/pink, Pharynx Normal Neck Exam: Positive: Supple; Negative: JVD, thyromegaly Chest Exam: Positive: Normal air movement, Other (bibasillar crackles extending up to the mid back of chest) Heart Exam: Positive: Rate Normal, Regular Rhythm, Normal S1, Normal S2, Murmurs (systolic murmur heard all over the precordium); Negative: Rubs Abdomen Exam: Positive: Normal bowel sounds, Soft; Negative: Tenderness Extremity Exam: Negative: Clubbing, Cyanosis, Edema Skin Exam: Positive: Breakdown (Has pressure decubitus ulcer that was debrided prior to admission and packed, no surrounding erythema or drainage.) Neuro Exam: Positive: Normal Speech, Strength at 5/5 X4 ext, Normal Tone Psych Exam: Positive: Oriented x 3 Assessment /Plan Assessment 85 y/o W with a history of cad s/p CABG in July 2020, Atrial appendicular exclusion device placement, Pacemaker placement, a-fib, chf, htn, copd, gout, hypothyroidism, depression, sacral decubital ulcer, who presented to the ED on 11/16 for right hip pain after a fall and now admitted for sepsis presumed 2/2 pna as well as acute on chronic anemia requiring transfusion. Sepsis likely due to Pneumonia. CT abd and pelvis showed: Bibasilar infiltrates with interstitial coarsening and fibro-atelectatic change, left greater than right. On empiric vanc and cefepime. MRSA PCR is negative. Blood cultures / from 11/17 positive for gram positive cocci in chairs, c lusters and pairs, MSSA and Streptococcus group C. More cultures ordered. UA bland MSSA bacteremia has pacemaker in place, has atrial appendicular occlusion device will get TTE to evaluate for vegetations. ID consult Acute on chronic anemia Patient has macrocytic anemia with MCV of 102.3, hb of 7 With history of cad, transfusion is indicated. Goal hb is >8. 2u pRBCs transfused Iron studies no significant iron deficiency Follow up b12, folate, occult stool ordered. 2 units of prbc received GEOVANNI creatinine stable at 1.4 to 1.5 range will monitor avoid nephrotoxic medications. Thrombocytopenia chronic No heparin. Recurrent falls Potentially secondary to deconditioning from prolonged recent hospital stay PT/OT R hip contusion Thorough imaging performed in the ED show no acute fracture. Pain 2/2 contusion RICE Tylenol for pain for now PRN CAD/CABG continue nitro PRN, asa, statin CHF patient not currently fluid overloaded Hold metoprolol, lasix while septic HLD continue atorvastatin A-fib s/p pacer patient not currently on anticoagulation, however is anemic as well requiring blood, will have to complete anemia workup and note if H/H drops acutely after which there may be discussion about AC. With her history of falls i do not think she is a good candidate for [facility] AC. Hold metoprolol Gout continue ursodiol Depression/anxiety continue sertraline, mirtazapine, seroquel Hypothyroidism continue synthroid Vertebral compression fractures. T11, T12, L2 chronic Bilateral inguinal hernias. fat filled. Diverticulosis Hiatal hernia small Plan/VTE VTE Prophylaxis Ordered?: Yes VS, I&O, 24H, Fishbone Vital Signs/I&O Vital Signs Date Time Temp Pulse Resp B/P (MAP) Pulse Ox O2 Delivery O2 Flow Rate FiO2 11/19/20 08:48 18 11/19/20 08:00 97.6 86 129/62 (84) 95 Nasal Cannula 1.0 I&O- Last 24 Hours up to 6 AM 11/19/20 06:00 Intake Total 880 ml Output Total 350 ml Balance 530 ml Laboratory Data 24H LABS Laboratory Tests 2 11/19/20 04:58: Nucleated Red Blood Cells % (auto) 0.0, Immature Platelet Fraction 6.9, Anion Gap 1L, Glomerular Filtration Rate 44.9, Calcium Level 7.9L, Magnesium Level 2.1, Vancomycin Level Trough 14.3 CBC/BMP Laboratory Tests 11/19/20 04:58 Microbiology Microbiology 11/19/20 Blood Culture, Received Pending 11/17/20 Blood Culture - Preliminary, Resulted Staphylococcus Aureus 11/17/20 Blood Culture - Preliminary, Resulted Staphylococcus Aureus 11/17/20 Blood Culture - Preliminary, Resulted Staphylococcus Aureus Streptococcus Group C 11/17/20 Blood Culture - Final, Complete Staphylococcus Aureus Miley Preciado MD Nov 19, 2020 12:54
[2020-11-19 13:04] LABS: FOLATE > 24.0 NG/ML (>5.4)
[2020-11-19] MEDS ORDERED: FUROSEMIDE 20MG/2ML VIAL (J1940) IV ONE (14:00)
--- NOTE | 2020-11-19 15:48 | IPN ---
PROGRESS NOTE DATE: 11/19/2020 SUBJECTIVE: Ms. Johnston is seen this morning on her bedside. She is feeling about the same and denies any new issues. She has no dyspnea, chest pain, nausea, vomiting, fever or chills at present. PHYSICAL EXAMINATION: Temperature 97.6 degrees Fahrenheit, heart rate 86 per minute and respiratory rate 18 per minute. Blood pressure 129/62 mmHg and oxygen saturation 95%. Neck: Neck veins are about 8 cm above sternal angle. Heart: Sounds are irregular in rhythm. Lungs: Clear to auscultation. Abdomen: Soft and nontender and bowel sounds are normal. Extremities: Without any cyanosis or clubbing. Sacral decubitus is covered with a dressing. LABORATORY DATA: Her blood cultures have come back positive for Staph aureus which is sensitive to everything other than penicillin. Today's labs show: WBC count 6.3, hemoglobin 7.6, hematocrit 26.6, platelets 86,000. Sodium 139, potassium 4.7, BUN 26, creatinine 1.20. PROBLEMS/PLAN: 1. Acute kidney injury superimposed on chronic kidney disease most likely related to sepsis and hypotension: Kidney function has improved nicely and she has good urine output. 2. Anemia: Her anemia has worsened once again and I would recommend to transfuse her further. 3. Staph aureus sepsis: Patient remains on vancomycin at present; however, Staph aureus is sensitive to everything other than penicillin. So far she has been on cefepime and vancomycin. I would recommend to consider stopping vancomycin and use a non-nephrotoxic antibiotic.
[2020-11-19] MEDS ORDERED: LIDOCAINE 1% MDV 20ML VIAL As Ordered ONE (16:53)
--- NOTE | 2020-11-19 18:08 | CR ---
ADVANCED WOUND CARE CONSULTATION DATE: 11/19/2020 REQUESTING PHYSICIAN: Dr. Preciado CONSULTING PHYSICIAN: Dr. Derik Wiley REASON FOR CONSULTATION: In regards to a stage 4 pressure injury of the sacrum. HISTORY OF PRESENT ILLNESS: This is an 85-year-old female who was hospitalized in [place] for cardiac issues with complications after attempts at cardioversion/ablation. She remained in the hospital for over 50 days. She developed a stage 4 pressure injury involving the sacrum as a consequence. She has been transferred back to the [facility], was seen in our clinic a week ago but has since been hospitalized due to a probable urinary tract infection, rule out pneumonia, with a positive blood culture. On Physical examination there is a 3.0 cm by 2.0 cm stage 4 pressure injury involving the sacrococcyx area with a depth of 1.0 cm. There is undermining from the 12 o'clock to the 4 o'clock position of 1.0 cm. Previous undermining from the 4 o'clock to 12 o'clock position had been excised surgically with a running interlocking suture of #2-0 chromic for hemostasis. TREATMENT RECOMMENDATIONS: 1. At present, treatment should include Vashe Wound Cleanser for 10 minutes, cleaning the wound, followed by a Hydrofera Blue Classic and an outer foam dressing utilizing skin prep for the periwound. 2. When available, wound VAC therapy should be initiated. 3. White foam should be utilized and changed on a Thursday, Thursday, Thursday basis. 4. The wound VAC should be run continuous at 100 mmHgs. 5. Pressure can be varied once it is assessed how effective the wound responds to this initial treatment. 6. The patient's dietary status should be evaluated by a dietitian and her diet should be supplemented with Ensure and Alberto twice daily. Once the patient stabilizes and is ready for discharge, please contact our wound care center so that follow up arrangements can be made. NOTE: Wound care telemedicine provides a visual assessment of a wound without the benefit of physical examination. This can assist with establishing a diagnosis and etiology. This allows for an initial treatment plan. As wounds often change, it may be necessary to modify the original care. Our recommendation is periodic wound reassessment to monitor treatment. Failure to comply may result in non healing of the wound, possible complications and/or a poor outcome. The recommendations given will serve as treatment options. As I will not be following this patient, this care plan will require the attending physician to give and sign the orders. Upon discharge, outpatient follow up can be scheduled at our Wound Care Center. NOTE: If a wound VAC is obtainable and treatment is started with wound VAC therapy, arrangements will have to be made with the Visiting Nurses so that the wound VAC can be changed on a regular basis. Our standard protocol is to see the patient once a week and to change the wound VAC at that time. This would require Visiting Nurses to change it on two alternative days, as the schedule is Thursday, Thursday and Thursday. [place]
[2020-11-19] MEDS: ACETAMINOPHEN TAB 650MG DOSE (2X325MG) PO PRN (18:14)
[2020-11-19] MEDS: ceFAZolin SOD 2 GM in IV 1 EA IV SCH (20:36)
[2020-11-19] MEDS: QUEtiapine FUMARATE 25 MG TAB PO SCH (20:39)
[2020-11-19] MEDS: MIRTAZAPINE 15 MG TAB PO SCH (20:39)
[2020-11-19] MEDS: ATORVASTATIN 20 MG TAB PO SCH (20:39)
[2020-11-20] MEDS: ceFAZolin SOD 2 GM in IV 1 EA IV SCH ×3 (01:28→17:12)
[2020-11-20] MEDS: oxyCODONE 5MG TAB PO PRN (04:58)
[2020-11-20] MEDS: LEVOTHYROXINE 100MCG TABLET (0.1MG) PO SCH (04:58)
[2020-11-20 05:45] LABS: HEMATOCRIT 29.3 % (36.0-47.0); MEAN CORPUSCULAR HEMOGLOBIN 34.7 pg (27.0-33.0); MEAN CORPUSCULAR HGB CONC 34.1 g/dl (32.0-36.5); MEAN CORPUSCULAR VOLUME 101.7 fl (80.0-96.0); RED BLOOD COUNT 2.88 10^6/uL (4.00-5.40); WHITE BLOOD COUNT 8.8 10^3/uL (4.0-10.0)
[2020-11-20 05:47] LABS: PLATELET COUNT, AUTOMATED 79 10^3/uL (150-450)
[2020-11-20] MEDS: SODIUM CHLORIDE 0.9% INJ 10 ML SYR IV SCH ×2 (05:48→17:12)
[2020-11-20 05:54] LABS: C REACTIVE PROTEIN QUANTITATIV 11.9 MG/DL (0.00-0.30); CALCIUM LEVEL 7.8 MG/DL (8.8-10.2); CREATININE FOR GFR 1.06 MG/DL (0.55-1.30); GLOMERULAR FILTRATION RATE 52.3 (>32); MAGNESIUM LEVEL 1.9 MG/DL (1.8-2.4); POTASSIUM SERUM 4.1 MEQ/L (3.5-5.1)
[2020-11-20 07:32] VITALS: BP 119/64
[2020-11-20] MEDS ORDERED: ISOVUE-370 76% 100ML VIAL As Ordered ONE (07:33)
[2020-11-20 07:37] LABS: ERYTHROCYTE SEDIMENTATION RATE 63 mm/hr (0-30)
[2020-11-20 08:00] VITALS: BP 117/58
[2020-11-20] MEDS: DOCUSATE SODIUM 100MG CAPSULE PO SCH ×2 (09:28→20:09)
[2020-11-20] MEDS: ASPIRIN 81 MG CHEW TABLET PO SCH (09:28)
[2020-11-20] MEDS: ursodioL 300 MG CAP PO SCH ×2 (09:28→20:09)
[2020-11-20] MEDS: ULTRACET TAB PO SCH ×2 (09:29→20:12)
[2020-11-20] MEDS: SERTRALINE HCL 50 MG TAB PO SCH (09:29)
[2020-11-20] MEDS: FOLIC ACID 1 MG TAB PO SCH (09:29)
--- NOTE | 2020-11-20 11:53 | IPN ---
PROGRESS NOTE DATE: 11/20/2020 SUBJECTIVE: Mrs. Johnston was initially seen for acute renal failure at the time of admission. Since then, her kidney function has improved nicely and today her creatinine is down to 1.0. Her electrolytes are normal. She also has significant anemia which improved following transfusion with hemoglobin up to 10 today and hematocrit 29.3. She is being treated for Staph aureus bacteremia most likely related to her sacral decubitus ulcer. She was initially treated with Vancomycin and Cefepime, however her Vancomycin has been now stopped as Staph aureus is sensitive to everything. Patient is now on Cefazolin. At this point she does not seem to have any risk for further worsening kidney function. Nephrology is signing off her case. Please do not hesitate to call back should you need any further assistance.
[2020-11-20 12:00] VITALS: BP 107/65
--- NOTE | 2020-11-20 12:11 | IPNPDOC ---
Subjective Date Seen The patient was seen on 11/20/20. Subjective Chief Complaint/HPI Patient irritable and uncooperative this morning. Initially she refused blood work she refused CT abdomen and pelvis was refusing echo. She just wanted to be left alone and did not want anything done. I then spoke to her regarding her wishes whether she wanted to be made comfortable and transition to hospice care. But she states she does not want to be hospice and does not want us to stop antibiotics. Then she became emotional and said "I dont know what I want just want to go home." She however agreed to lab work today and echo however con tinued to refuse CT abdomen. No fever or chills. No diarrhea. Did not complain of any pain. Objective Physical Examination General Exam: Positive: Alert, Cooperative, No Acute Distress Eye Exam: Positive: PERRLA, Conjunctiva & lids normal, EOMI; Negative: Sclera icteric ENT Exam: Positive: Atraumatic, Mucous membr. moist/pink, Pharynx Normal Neck Exam: Positive: Supple; Negative: JVD, thyromegaly Chest Exam: Positive: Normal air movement, Other (bibasillar crackles extending up to the mid back of chest) Heart Exam: Positive: Rate Normal, Regular Rhythm, Normal S1, Normal S2, Murmurs (systolic murmur heard all over the precordium); Negative: Rubs Abdomen Exam: Positive: Normal bowel sounds, Soft; Negative: Tenderness Extremity Exam: Negative: Clubbing, Cyanosis, Edema Skin Exam: Positive: Breakdown (Has pressure decubitus ulcer that was debrided prior to admission and packed, no surrounding erythema or drainage.) Neuro Exam: Positive: Normal Speech, Strength at 5/5 X4 ext, Normal Tone Psych Exam: Positive: Oriented x 3 Assessment /Plan Assessment 85 y/o W with a history of cad s/p CABG in July 2020, Atrial appendicular exclusion device placement, Pacemaker placement, a-fib, chf, htn, copd, gout, hypothyroidism, depression, sacral decubital ulcer, who presented to the ED on 11/16 for right hip pain after a fall and now admitted for sepsis presumed 2/2 pna as well as acute on chronic anemia requiring transfusion. Sepsis CT abd and pelvis showed: Bibasilar infiltrates with interstitial coarsening and fibro-atelectatic change, left greater than right. could be due to pneumonia or from decubiti. Other possible sources are the pacemaker insertion site Blood cultures 4/4 from 11/17 positive for gram positive cocci in chairs, clusters and pairs, MSSA and Streptococcus group C. BC from 11/19/20 negative MSSA bacteremia Source yet undetermined. Lungs/ skin and soft tissues has pacemaker in place, has atrial appendicular occlusion device will get TTE to evaluate for vegetations. ID consult appreciated Will need 6 weeks of antibiotics. Stage 4 Sacral decubiti evaluated by Dr Fodr had debridement done on the day prior to admission 11/16/20 will continue with wound care as per Dr ford's recommendations will need wound vac placement. Acute on chronic anemia Patient has macrocytic anemia with MCV of 102.3, hb of 7 With history of cad, transfusion is indicated. Goal hb is >8. 2u pRBCs transfused Iron studies no significant iron deficiency No deficiency of b12 or folate. 2 units of prbc received GEOVANNI creatinine stable at 1.4 to 1.5 range will monitor avoid nephrotoxic medications. Thrombocytopenia chronic No heparin. Recurrent falls Potentially secondary to deconditioning from prolonged recent hospital stay PT/OT R hip pain/ low back pain imaging performed in the ED for right hip did not show no acute fracture likely contusion. ultracet CAD/CABG continue nitro PRN, asa, statin Echo CHF patient not currently fluid overloaded Hold metoprolol, lasix while septic HLD continue atorvastatin A-fib s/p pacer patient not currently on anticoagulation, however is anemic as well requiring blood, will have to complete anemia workup and note if H/H drops acutely after which there may be discussion about AC. With her history of falls i do not think she is a good candidate for group home AC. Hold metoprolol Gout continue ursodiol Depression/anxiety continue sertraline, mirtazapine, seroquel Hypothyroidism continue synthroid Vertebral compression fractures. T11, T12, L2 chronic Bilateral inguinal hernias. fat filled. Diverticulosis Hiatal hernia small Plan/VTE VTE Prophylaxis Ordered?: Yes VS, I&O, 24H, Fishbone Vital Signs/I&O Vital Signs Date Time Temp Pulse Resp B/P (MAP) Pulse Ox O2 Delivery O2 Flow Rate FiO2 11/20/20 09:29 22 97 Nasal Cannula 2.0 11/20/20 08:00 97.6 84 117/58 (77) I&O- Last 24 Hours up to 6 AM 11/20/20 06:00 Intake Total 400 ml Output Total 300 ml Balance 100 ml Laboratory Data 24H LABS Laboratory Tests 2 11/20/20 05:16: Nucleated Red Blood Cells % (auto) 0.0, Immature Platelet Fraction 10.5H, Erythrocyte Sedimentation Rate 63H, Anion Gap 4L, Glomerular Filtration Rate 52.3, Calcium Level 7.8L, Magnesium Level 1.9, C-Reactive Protein, Quantitative 11.90H CBC/BMP Laboratory Tests 11/20/20 05:16 Microbiology Microbiology 11/20/20 Blood Culture, Received Pending 11/20/20 Blood Culture, Received Pending 11/19/20 Blood Culture - Preliminary, Resulted No growth after 24 hours . All specim... 11/17/20 Blood Culture - Final, Complete Staphylococcus Aureus 11/17/20 Blood Culture - Final, Complete Staphylococcus Aureus 11/17/20 Blood Culture - Final, Complete Staphylococcus Aureus Streptococcus Group C 11/17/20 Blood Culture - Final, Complete Staphylococcus Aureus Miley Preciado MD Nov 20, 2020 12:11
[2020-11-20 15:38] VITALS: BP 145/69
--- NOTE | 2020-11-20 17:20 | CR ---
CONSULTATION DATE: 11/19/2020 TIME: Patient was seen at 6 p.m. REASON FOR CONSULTATION: I was asked to consult by Miley Preciado MD for evaluation of Staph aureus bacteremia in a patient who had aortic valve replacement in August of 2020. HISTORY OF PRESENT ILLNESS: Mrs. Johnston is an 85-year-old female with a history of coronary artery disease and severe aortic stenosis, had aortic valve replacement and CABG on September 11, 2020 for severe aortic stenosis with cryoablation and clipping of left atrial appendage. The patient was hospitalized until October 30. She had a tracheostomy on September 17 and a dual pacemaker placed on October 09. She was under the care of Dr. Maya. The patient presented to the emergency room on 11/16 complaining of right hip pain after she fell. The patient had a sacral decubitus ulcer that had been debrided by Dr. Wiley on the day prior to hospitalization. She had a fever up to 101, tachycardia, hypoxia and hypotension. The patient was admitted with severe sepsis. Her hemoglobin was 7. She had positive blood cultures x4 on 11/17 with MSSA and one out of the four cultures also had group C Strep. The patient was treated with vancomycin and cefepime. She had very poor IV access and therefore required a PICC line that was placed on 11/19. Her fever resolved within 24 hours. She was very tired yesterday after her PICC line and was having a hard time giving me a history. She denied any nausea, vomiting or diarrhea. She had pain in the decubitus ulcer that had developed during her hospital stay but otherwise did not have major complaints. PAST MEDICAL HISTORY: 1. Coronary artery disease. 2. Severe aortic stenosis. 3. Atrial fibrillation. 4. Congestive heart failure. 5. Hypertension. 6. COPD. 7. Gout. 8. Hypothyroidism. 9. Depression. 10. Gallstone pancreatitis, status post costa drain during hospitalization in September of 2020. PAST SURGICAL HISTORY: 1. Aortic valve replacement. 2. CABG. 3. Cryoablation with clipping of left atrial appendage done September 11, 2020 at [facility], September 17. 4. Tracheostomy, October 09. 5. Dual pacemaker. 6. Left total knee arthroplasty. 7. Right arm open reduction and internal fixation. SOCIAL HISTORY: Denies tobacco, alcohol or drug use. She usually lives alone and is independent. ALLERGIES: CODEINE AND TRAMADOL. MEDICATIONS: 1. Ultracet one tablet p.o. b.i.d. 2. Tylenol 650 mg p.o. q.6 p.r.n. 3. Percocet 5 mg q.6 p.r.n. 4. Ursodiol 300 mg p.o. b.i.d. 5. Sertraline 50 mg p.o. daily. 6. Folic acid 1 mg daily. 7. Aspirin 81 mg daily. 8. Colace 100 mg p.o. b.i.d. 9. Levothyroxine 100 mcg p.o. daily. 10. Nitroglycerin p.r.n. 11. Seroquel 25 mg p.o. q.h.s. 12. Remeron 15 mg p.o. q.h.s. 13. Lipitor 40 mg p.o. q.h.s. LABORATORY DATA: Labs on admission: White count was 10.8, hemoglobin 7, hematocrit 22.3. 11/19: Sodium 139, potassium 4.7, chloride 110, bicarb 28, BUN 26, creatinine 1.21, glucose 82, calcium 7.9, magnesium 2.1, white count 6.3, hemoglobin 7.6, hematocrit 22.6, platelets 86. Vancomycin trough 14.3. SARS-CoV-2 negative. Influenza A and B negative. MRSA negative. Blood cultures on 11/17: Four sets were positive for MSSA and one set had a group C Strep. 11/19 blood culture is pending. IMAGING: CT, abdomen and pelvis without contrast done on 11/16 shows bibasilar infiltrate, old granulomatous disease of spleen and liver, degenerative changes of the hips, wedge compression fracture, T11, T12, cholelithiasis, minimal hiatus hernia, colonic diverticulosis, decubitus ulcer. Chest x-ray, portable showed a sternotomy and left atrial appendage exclusion device since 08/06/2020 and interval placement of a pacemaker. Vascular ultrasound 11/16: Negative for right lower extremity DVT. Lumbar spine CT 11/16: Wedge configuration of T12-L1 and multilevel degenerative disc disease. Extremity CT, 11/16: Decubitus ulceration over sacrococcygeal region on the right side of the midline with collection of gas within the soft tissue. No definite osseous erosion. Findings consistent with cellulitis, fat-filled bilateral inguinal hernia and sigmoid diverticulosis. REVIEW OF SYSTEMS: The patient denies any nausea, vomiting or diarrhea. She is lethargic but is able to respond appropriately to questions. PHYSICAL EXAMINATION: General: Frail. Vital Signs: Temperature is 98, pulse 120, respirations 19, blood pressure 132/75, O2 sat two liters on nasal cannula. Heart: Irregularly irregular, no murmurs appreciated. Medial scar of sternotomy healed but there is some crepitus felt although there is no redness or purulence. There is no open tract and no pain, no tenderness to touch. Lungs: Crackles at the bases. No wheezes or rhonchi. Abdomen: Soft, nontender, no hepatosplenomegaly. Decubitus ulcer measuring 3 x 2 cm x a depth of 1 cm clean with granulation tissue, no purulence as the wound is packed with Hydrofera Blue. Extremities: No clubbing, cyanosis, trace edema. Neurologic exam: Alert and oriented x3. Moves all extremities although a neurologic exam was not completely done. IMPRESSION: Staph aureus sepsis in a patient who underwent aortic valve replacement in mid-August and CABG. The source of infection could have been decubitus ulcer especially that she recently had a debridement and one of the cultures had also a group C Strep. Patient is at high risk of endocarditis with recent aortic valve replacement and having a permanent pacemaker, the patient will need to be treated with six weeks of IV cefazolin. Cultures are positive for MSSA and therefore vancomycin and cefepime could be discontinued. PLAN: 1. We will consult Dr. Haddad to schedule a transesophageal echocardiogram that does not need to be done urgently as no matter what the findings are, the patient will need six weeks of antibiotics. 2. Discontinue IV vancomycin and cefepime, switch to cefazolin 2 gm IV q.8 hours. Patient will need six weeks of IV antibiotics from first negative culture with end of therapy being December 31 if cultures remain negative. Plan to consult cardiology to discuss our case. She sees Dr. Bird and therefore Dr. Haddad could be doing the transesophageal echocardiogram if no contraindication. [facility] was accessed and a record of her discharge summary was printed and reviewed.
--- NOTE | 2020-11-20 18:17 | IPN ---
PROGRESS NOTE DATE: 11/20/2020 Earlene is sleepy and tired. She refused CT and echocardiogram and wanted to be left alone earlier today. She was somewhat frustrated and kind of forgetful about the events. All she could say was that she refused to go to rehabilitation at [facility] after her hospital discharge on October 31 from [facility] because the place was not clean. She ended up going to her daughter's for a week and her son's for a week. They were discussing getting her care at home. She currently has no fever or chills. No nausea, vomiting, or diarrhea. No chest pain or chest wall pain. LABORATORY DATA: White count is 8.8, hemoglobin 10, hematocrit 29.3, platelets 79. Sodium 140, potassium 4.1, chloride 108, bicarbonate 28, BUN 22, creatinine 1.06, glucose 83, calcium 7.8, magnesium 1.9. CRP 11.9. ESR 63. Blood cultures were positive on November 17. Four sets were positive for methicillin-sensitive Staphylococcus aureus (MSSA), and November 19 blood culture was negative. PHYSICAL EXAMINATION: Temperature is 97.8, pulse 81, respirations 20, blood pressure 145/69, oxygen saturation 99% on 2 liters nasal cannula. HEART: Normal S1, S2, irregular with a systolic ejection murmur 2/6. LUNGS: Few crackles at the bases bilaterally. ABDOMEN: Obese, soft, nontender. EXTREMITIES: No clubbing, cyanosis, or edema. Peripherally inserted central catheter (PICC) line in the right arm. Alert, oriented, somewhat sleepy but able to answer most of the questions appropriately. IMPRESSION: 1. Staphylococcus aureus bacteremia. Methicillin-sensitive Staphylococcus aureus (MSSA) with sepsis in a patient who recently had aortic valve replacement and pacemaker placement 09/11/2020 and was hospitalized until November 01 at [facility]. Source of Staphylococcus aureus could be from her decubitus ulcer. The patient on intravenous (IV) cephazolin, doing better with negative culture on November 19. 2. Sacral decubitus. Does not look infected. Granulation tissue measures about 2 x 3 cm. Continue with dressing changes per Dr. Wiley. 3. History of coronary artery disease and congestive heart failure (CHF). Patient slightly tachypneic today. PLAN: Case has been discussed with Francoise, her daughter, regarding her care and her refusal of testing. She probably will need to have rehabilitation, since she did not go to rehabilitation at [facility], and she is pretty frail. She will need IV antibiotics for at least 6 weeks from negative culture with anticipated discontinuation date on December 31. Case discussed with Dr. Preciado, who has discussed with Dr. Haddad regarding transesophageal echocardiogram.
[2020-11-20 20:00] VITALS: BP 157/74
[2020-11-20] MEDS: MIRTAZAPINE 15 MG TAB PO SCH (20:09)
[2020-11-20] MEDS: QUEtiapine FUMARATE 25 MG TAB PO SCH (20:09)
[2020-11-20] MEDS: ATORVASTATIN 20 MG TAB PO SCH (20:10)
[2020-11-21] VITALS (19 sets, daily range): BP systolic 115–164; BP diastolic 56–74; O2SAT 86–98
[2020-11-21] MEDS: ceFAZolin SOD 2 GM in IV 1 EA IV SCH ×3 (02:01→17:55)
[2020-11-21] MEDS: LEVOTHYROXINE 100MCG TABLET (0.1MG) PO SCH (05:26)
[2020-11-21] MEDS: SODIUM CHLORIDE 0.9% INJ 10 ML SYR IV SCH ×2 (05:42→17:56)
[2020-11-21 06:16] LABS: HEMATOCRIT 26.1 % (36.0-47.0); MEAN CORPUSCULAR HEMOGLOBIN 35.7 pg (27.0-33.0); MEAN CORPUSCULAR HGB CONC 34.5 g/dl (32.0-36.5); MEAN CORPUSCULAR VOLUME 103.6 fl (80.0-96.0); RED BLOOD COUNT 2.52 10^6/uL (4.00-5.40); WHITE BLOOD COUNT 8.1 10^3/uL (4.0-10.0)
[2020-11-21 06:22] LABS: PLATELET COUNT, AUTOMATED 79 10^3/uL (150-450)
[2020-11-21 06:27] LABS: CREATININE FOR GFR 1.01 MG/DL (0.55-1.30); GLOMERULAR FILTRATION RATE 55.3 (>32); MAGNESIUM LEVEL 1.9 MG/DL (1.8-2.4)
[2020-11-21] MEDS: ursodioL 300 MG CAP PO SCH ×2 (09:00→20:59)
[2020-11-21] MEDS: SERTRALINE HCL 50 MG TAB PO SCH (09:00)
[2020-11-21] MEDS: DOCUSATE SODIUM 100MG CAPSULE PO SCH ×2 (09:00→20:59)
[2020-11-21] MEDS: FOLIC ACID 1 MG TAB PO SCH (09:00)
[2020-11-21] MEDS: ASPIRIN 81 MG CHEW TABLET PO SCH (09:00)
[2020-11-21] MEDS: oxyCODONE 5MG TAB PO PRN (09:02)
--- NOTE | 2020-11-21 11:15 | IPNPDOC ---
Subjective Date Seen The patient was seen on 11/21/20. Subjective Chief Complaint/HPI Patient appears to be less frustrated today had a little breakfast. Still adamant about not getting more tests done however does want to continue with antibiotics. Again just says wants to go home does not want to go to rehab. I tried to explain about BLAYNE at first she adamantly refused. She she thought that BLAYNE was a feeding tube. After further explanation she she said that she will will discuss it with her daughter before getting the test. On VAC in place. No fever or chills. No diarrhea. Objective Physical Examination General Exam: Positive: Alert, Cooperative, No Acute Distress Eye Exam: Positive: PERRLA, Conjunctiva & lids normal, EOMI; Negative: Sclera icteric ENT Exam: Positive: Atraumatic, Mucous membr. moist/pink, Pharynx Normal Neck Exam: Positive: Supple; Negative: JVD, thyromegaly Chest Exam: Positive: Normal air movement, Other (bibasillar crackles extending up to the mid back of chest) Heart Exam: Positive: Rate Normal, Regular Rhythm, Normal S1, Normal S2, Murmurs (systolic murmur heard all over the precordium); Negative: Rubs Abdomen Exam: Positive: Normal bowel sounds, Soft; Negative: Tenderness Extremity Exam: Negative: Clubbing, Cyanosis, Edema Skin Exam: Positive: Breakdown (Has pressure decubitus ulcer that was debrided prior to admission and packed, no surrounding erythema or drainage.) Neuro Exam: Positive: Normal Speech, Strength at 5/5 X4 ext, Normal Tone Psych Exam: Positive: Oriented x 3 Assessment /Plan Assessment 85 y/o W with a history of cad s/p CABG in July 2020, Atrial appendicular exclusion device placement, Pacemaker placement, a-fib, chf, htn, copd, gout, hypothyroidism, depression, sacral decubital ulcer, who presented to the ED on 11/16 for right hip pain after a fall and now admitted for sepsis presumed 2/2 pna as well as acute on chronic anemia requiring transfusion. Sepsis CT abd and pelvis showed: Bibasilar infiltrates with interstitial coarsening and fibro-atelectatic change, left greater than right. could be due to pneumonia or from decubiti. Blood cultures 4/4 from 11/17 positive for gram positive cocci in chairs, clusters and pairs, MSSA and Streptococcus group C. BC from 11/19/20 negative MSSA bacteremia Source yet undetermined. Lungs/ skin and soft tissues has pacemaker in place, has atrial appendicular occlusion device will get BLAYNE to evaluate for vegetations. Discussed with Dr Haddad. ID consult appreciated Will need 6 weeks of antibiotics. Last date December 31, 2020 Stage 4 Sacral decubiti evaluated by Dr Ford had debridement done on the day prior to admission 11/16/20 will continue with wound care as per Dr ford's recommendations wound vac placed Acute on chronic anemia Patient has macrocytic anemia with MCV of 102.3, hb of 7 With history of cad, transfusion is indicated. Goal hb is >8. 2u pRBCs transfused Iron studies no significant iron deficiency No deficiency of b12 or folate. 2 units of prbc received GEOVANNI resolved Thrombocytopenia chronic No heparin. Recurrent falls Potentially secondary to deconditioning from prolonged recent hospital stay. Patient had refused to go to rehab when she was discharged from [facility]. PT/OT R hip pain/ low back pain imaging performed in the ED for right hip did not show no acute fracture likely contusion. ultracet CAD/CABG in August 2020 continue nitro PRN, asa, statin Restart metoprolol Aortic stenosis Status post aortic valve replacement along with CABG in August 2020 CHF patient not currently fluid overloaded Will restart metoprolol Echo report pending HLD continue atorvastatin A-fib s/p pacer and atrial appendicular occlusion device placement in August 2020 patient not currently on anticoagulation, however is anemic as well requiring blood, will have to complete anemia workup and note if H/H drops acutely after which there may be discussion about AC. With her history of falls i do not think she is a good candidate for [facility] AC. Restart metoprolol Gout continue ursodiol Depression/anxiety continue sertraline, mirtazapine, seroquel Hypothyroidism continue synthroid Vertebral compression fractures. T11, T12, L2 chronic Bilateral inguinal hernias. fat filled. Diverticulosis Hiatal hernia small Plan/VTE VTE Prophylaxis Ordered?: Yes VS, I&O, 24H, Fishbone Vital Signs/I&O Vital Signs Date Time Temp Pulse Resp B/P (MAP) Pulse Ox O2 Delivery O2 Flow Rate FiO2 11/21/20 09:32 18 Nasal Cannula 1.0 11/21/20 09:30 97 11/21/20 09:02 148/68 11/21/20 07:37 98.3 83 I&O- Last 24 Hours up to 6 AM 11/21/20 06:00 Intake Total 810 ml Output Total 1800 ml Balance -990 ml Laboratory Data 24H LABS Laboratory Tests 2 11/21/20 05:45: Nucleated Red Blood Cells % (auto) 0.0, Immature Platelet Fraction 8.5, Anion Gap 4L, Glomerular Filtration Rate 55.3, Calcium Level 8.0L, Magnesium Level 1.9 CBC/BMP Laboratory Tests 11/21/20 05:45 Microbiology Microbiology 11/21/20 Blood Culture, Received Pending 11/20/20 Blood Culture - Preliminary, Resulted No growth after 24 hours . All specim... 11/20/20 Blood Culture - Preliminary, Resulted No growth after 24 hours . All specim... 11/19/20 Blood Culture - Preliminary, Resulted No Growth after 48 hours. All Specime... 11/17/20 Blood Culture - Final, Complete Staphylococcus Aureus 11/17/20 Blood Culture - Final, Complete Staphylococcus Aureus 11/17/20 Blood Culture - Final, Complete Staphylococcus Aureus Streptococcus Group C 11/17/20 Blood Culture - Final, Complete Staphylococcus Aureus Miley Preciado MD Nov 21, 2020 11:15
[2020-11-21] MEDS: METOPROLOL TART 12.5 MG PER 1/2 TAB PO SCH ×2 (11:58→21:00)
[2020-11-21] MEDS: ULTRACET TAB PO SCH ×2 (11:59→21:00)
[2020-11-21] MEDS: ONDANSETRON 4MG/2ML VIAL IV PRN (19:59)
[2020-11-21] MEDS: MIRTAZAPINE 15 MG TAB PO SCH (20:59)
[2020-11-21] MEDS: ATORVASTATIN 20 MG TAB PO SCH (20:59)
[2020-11-21] MEDS: QUEtiapine FUMARATE 25 MG TAB PO SCH (20:59)
[2020-11-22] VITALS (11 sets, daily range): BP systolic 98–148; BP diastolic 50–69; O2SAT 83–95
[2020-11-22] MEDS: ceFAZolin SOD 2 GM in IV 1 EA IV SCH ×3 (02:28→17:44)
[2020-11-22] MEDS: LEVOTHYROXINE 100MCG TABLET (0.1MG) PO SCH (06:16)
[2020-11-22] MEDS: SODIUM CHLORIDE 0.9% INJ 10 ML SYR IV SCH ×2 (06:17→17:44)
[2020-11-22 06:45] LABS: HEMATOCRIT 27.7 % (36.0-47.0); HEMOGLOBIN 9.2 g/dl (12.0-15.5); MEAN CORPUSCULAR HEMOGLOBIN 34.2 pg (27.0-33.0); MEAN CORPUSCULAR HGB CONC 33.2 g/dl (32.0-36.5); PLATELET COUNT, AUTOMATED 79 10^3/uL (150-450); RED BLOOD COUNT 2.69 10^6/uL (4.00-5.40); WHITE BLOOD COUNT 8.2 10^3/uL (4.0-10.0)
[2020-11-22 07:03] LABS: BLOOD UREA NITROGEN 15 MG/DL (7-18); CALCIUM LEVEL 8.2 MG/DL (8.8-10.2); CARBON DIOXIDE LEVEL 30 MEQ/L (21-32); CHLORIDE LEVEL 108 MEQ/L (98-107); CREATININE FOR GFR 0.85 MG/DL (0.55-1.30); GLOMERULAR FILTRATION RATE > 60.0 (>32); GLUCOSE, FASTING 91 MG/DL (70-100); POTASSIUM SERUM 4.3 MEQ/L (3.5-5.1); SODIUM LEVEL 142 MEQ/L (136-145)
[2020-11-22] MEDS: ursodioL 300 MG CAP PO SCH ×2 (09:01→20:48)
[2020-11-22] MEDS: DOCUSATE SODIUM 100MG CAPSULE PO SCH ×2 (09:01→20:50)
[2020-11-22] MEDS: SERTRALINE HCL 50 MG TAB PO SCH (09:01)
[2020-11-22] MEDS: ASPIRIN 81 MG CHEW TABLET PO SCH (09:01)
[2020-11-22] MEDS: FOLIC ACID 1 MG TAB PO SCH (09:02)
[2020-11-22] MEDS: METOPROLOL TART 12.5 MG PER 1/2 TAB PO SCH ×2 (09:02→20:50)
[2020-11-22] MEDS: ULTRACET TAB PO SCH ×2 (09:04→20:49)
--- NOTE | 2020-11-22 15:08 | IPNPDOC ---
Subjective Date Seen The patient was seen on 11/22/20. Subjective Chief Complaint/HPI No complaints this morning. Patient is seen sitting up in chair having lunch. Seems in a better mood today smiling. Objective Physical Examination General Exam: Positive: Alert, Cooperative, No Acute Distress Eye Exam: Positive: PERRLA, Conjunctiva & lids normal, EOMI; Negative: Sclera icteric ENT Exam: Positive: Atraumatic, Mucous membr. moist/pink, Pharynx Normal Neck Exam: Positive: Supple; Negative: JVD, thyromegaly Chest Exam: Positive: Normal air movement, Other (bibasillar crackles extending up to the mid back of chest) Heart Exam: Positive: Rate Normal, Regular Rhythm, Normal S1, Normal S2, Murmurs (systolic murmur heard all over the precordium); Negative: Rubs Abdomen Exam: Positive: Normal bowel sounds, Soft; Negative: Tenderness Extremity Exam: Negative: Clubbing, Cyanosis, Edema Skin Exam: Positive: Breakdown (Has pressure decubitus ulcer that was debrided prior to admission and packed, no surrounding erythema or drainage.) Neuro Exam: Positive: Normal Speech, Strength at 5/5 X4 ext, Normal Tone Psych Exam: Positive: Oriented x 3 Assessment /Plan Assessment 85 y/o W with a history of cad s/p CABG in July 2020, Atrial appendicular exclusion device placement, Pacemaker placement, a-fib, chf, htn, copd, gout, hypothyroidism, depression, sacral decubital ulcer, who presented to the ED on 11/16 for right hip pain after a fall and now admitted for sepsis presumed 2/2 pna as well as acute on chronic anemia requiring transfusion. Sepsis CT abd and pelvis showed: Bibasilar infiltrates with interstitial coarsening and fibro-atelectatic change, left greater than right. could be due to pneumonia or from decubiti. Blood cultures 4/4 from 11/17 positive for gram positive cocci in chairs, clusters and pairs, MSSA and Streptococcus group C. BC from 11/19/20 negative MSSA bacteremia Source yet undetermined. Lungs/ skin and soft tissues has pacemaker in place, has atrial appendicular occlusion device will get BLAYNE to evaluate for vegetations. Discussed with Dr Haddad. ID consult appreciated Will need 6 weeks of antibiotics. Last date December 31, 2020 Stage 4 Sacral decubiti evaluated by Dr Ford had debridement done on the day prior to admission 11/16/20 will continue with wound care as per Dr ford's recommendations wound vac placed Acute on chronic anemia Patient has macrocytic anemia with MCV of 102.3, hb of 7 With history of cad, transfusion is indicated. Goal hb is >8. 2u pRBCs transfused Iron studies no significant iron deficiency No deficiency of b12 or folate. 2 units of prbc received GEOVANNI resolved Thrombocytopenia chronic No heparin. Recurrent falls Potentially secondary to deconditioning from prolonged recent hospital stay. Patient had refused to go to rehab when she was discharged from [facility]. PT/OT R hip pain/ low back pain imaging performed in the ED for right hip did not show no acute fracture likely contusion. ultracet CAD/CABG in August 2020 continue nitro PRN, asa, statin Restart metoprolol Aortic stenosis Status post aortic valve replacement along with CABG in August 2020 CHF patient not currently fluid overloaded Will restart metoprolol Echo report pending HLD continue atorvastatin A-fib s/p pacer and atrial appendicular occlusion device placement in August 2020 patient not currently on anticoagulation, however is anemic as well requiring blood, will have to complete anemia workup and note if H/H drops acutely after which there may be discussion about AC. 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 Restart metoprolol Gout continue ursodiol Depression/anxiety continue sertraline, mirtazapine, seroquel Hypothyroidism continue synthroid Vertebral compression fractures. T11, T12, L2 chronic Bilateral inguinal hernias. fat filled. Diverticulosis Hiatal hernia small Plan/VTE VTE Prophylaxis Ordered?: Yes VS, I&O, 24H, Fishbone Vital Signs/I&O Vital Signs Date Time Temp Pulse Resp B/P (MAP) Pulse Ox O2 Delivery O2 Flow Rate FiO2 11/22/20 10:34 97.8 121 18 118/63 (81) 88 Nasal Cannula 0.5 I&O- Last 24 Hours up to 6 AM 11/22/20 05:59 Intake Total 480 ml Output Total 400 ml Balance 80 ml Laboratory Data 24H LABS Laboratory Tests 2 11/22/20 06:09: Nucleated Red Blood Cells % (auto) 0.0, Immature Platelet Fraction 7.9, Anion Gap 4L, Glomerular Filtration Rate > 60.0, Calcium Level 8.2L, Magnesium Level 2.0 CBC/BMP Laboratory Tests 11/22/20 06:09 Microbiology Microbiology 11/21/20 Blood Culture - Preliminary, Resulted No growth after 24 hours . All specim... 11/20/20 Blood Culture - Preliminary, Resulted No Growth after 48 hours. All Specime... 11/20/20 Blood Culture - Preliminary, Resulted No Growth after 48 hours. All Specime... 11/19/20 Blood Culture - Preliminary, Resulted No Growth after 72 hours. All specime... 11/17/20 Blood Culture - Final, Complete Staphylococcus Aureus 11/17/20 Blood Culture - Final, Complete Staphylococcus Aureus 11/17/20 Blood Culture - Final, Complete Staphylococcus Aureus Streptococcus Group C 11/17/20 Blood Culture - Final, Complete Staphylococcus Aureus Miley Preciado MD Nov 22, 2020 15:08
[2020-11-22] MEDS: ACETAMINOPHEN TAB 650MG DOSE (2X325MG) PO PRN (16:52)
[2020-11-22] MEDS: ATORVASTATIN 20 MG TAB PO SCH (20:48)
[2020-11-22] MEDS: QUEtiapine FUMARATE 25 MG TAB PO SCH (20:48)
[2020-11-22] MEDS: MIRTAZAPINE 15 MG TAB PO SCH (20:50)
[2020-11-23] MEDS: ceFAZolin SOD 2 GM in IV 1 EA IV SCH ×3 (02:38→17:44)
[2020-11-23] MEDS: SODIUM CHLORIDE 0.9% INJ 10 ML SYR IV SCH ×2 (05:18→18:38)
[2020-11-23] MEDS: LEVOTHYROXINE 100MCG TABLET (0.1MG) PO SCH (05:31)
[2020-11-23 05:49] LABS: HEMATOCRIT 26.9 % (36.0-47.0); HEMOGLOBIN 8.9 g/dl (12.0-15.5); MEAN CORPUSCULAR HEMOGLOBIN 34.5 pg (27.0-33.0); MEAN CORPUSCULAR HGB CONC 33.1 g/dl (32.0-36.5); MEAN CORPUSCULAR VOLUME 104.3 fl (80.0-96.0); RED BLOOD COUNT 2.58 10^6/uL (4.00-5.40); WHITE BLOOD COUNT 7.7 10^3/uL (4.0-10.0)
[2020-11-23 05:50] LABS: PLATELET COUNT, AUTOMATED 82 10^3/uL (150-450)
[2020-11-23 06:00] VITALS: BP 119/55
[2020-11-23 06:07] LABS: BLOOD UREA NITROGEN 16 MG/DL (7-18); CARBON DIOXIDE LEVEL 33 MEQ/L (21-32); CHLORIDE LEVEL 108 MEQ/L (98-107); CREATININE FOR GFR 0.79 MG/DL (0.55-1.30); GLOMERULAR FILTRATION RATE > 60.0 (>32); GLUCOSE, FASTING 82 MG/DL (70-100); POTASSIUM SERUM 4.4 MEQ/L (3.5-5.1); SODIUM LEVEL 143 MEQ/L (136-145)
[2020-11-23] MEDS ORDERED: ISOVUE-370 76% 100ML VIAL As Ordered ONE (08:07)
[2020-11-23 09:00] VITALS: O2SAT 98
--- NOTE | 2020-11-23 09:21 | REP ---
INDICATION: MSSA bacteremia /cabg AVR COMPARISON: 08/06/2020 TECHNIQUE: Axial contrast enhanced images from the thoracic inlet to the upper abdomen with coronal and sagittal reformations using 75 ml Isovue 370 intravenous contrast material. [address] CT examination was performed using the following dose reduction techniques: Automated exposure control, adjustment of mA and/or kv according to the patient's size, and use of iterative reconstruction technique. FINDINGS: Small bilateral pleural effusions along with somewhat ill-defined areas of linear atelectasis and small lower lobe consolidations primarily noted involving the lingula and left base and to a lesser extent the right base. Small bilateral pleural effusions are also identified. No significant adenopathy. Further evaluation demonstrates cardiomegaly with small stable pericardial fluid, pacemaker, aortic valve repair, and central line placement terminating in the SVC. There are findings to suggest mild to moderate pulmonary vascular congestion with prominent pulmonary vasculature, cephalization, and increased interstitial markings. Patient is again noted to be status post sternotomy with small amounts of surrounding soft tissue density and fat stranding possibly related to recent procedure and or postsurgical changes. No associated discrete fluid collection identified to suggest abscess. Remainder of the osseous structures demonstrate age-related degenerative changes. IMPRESSION: 1. Scattered primarily left lower lobe and lingular atelectasis and small consolidations with trace right basilar atelectasis and small bilateral pleural effusions. 2. Cardiomegaly with [id number] pulmonary vascular congestion suggested. 3. Subtle stranding surrounding sternotomy is nonspecific but without discrete drainable collection/abscess. <Electronically signed by Lan Marcum > 11/23/20 0923
[2020-11-23] MEDS: ULTRACET TAB PO SCH ×2 (09:53→21:00)
[2020-11-23] MEDS: ursodioL 300 MG CAP PO SCH ×2 (09:53→21:11)
[2020-11-23] MEDS: FOLIC ACID 1 MG TAB PO SCH (09:53)
[2020-11-23] MEDS: DOCUSATE SODIUM 100MG CAPSULE PO SCH ×2 (09:53→21:11)
[2020-11-23] MEDS: SERTRALINE HCL 50 MG TAB PO SCH (09:53)
[2020-11-23] MEDS: ASPIRIN 81 MG CHEW TABLET PO SCH (09:53)
[2020-11-23] MEDS: METOPROLOL TART 12.5 MG PER 1/2 TAB PO SCH ×2 (09:53→21:12)
--- NOTE | 2020-11-23 10:10 | IPN ---
PROGRESS NOTE DATE: 11/22/2020 Earlene is doing better. She is more alert and talkative today. She is frustrated with her lack of improvement. She stated that her granddaughter thinks she is going to live to be 89, but she does not think she will. She states she is 85 now and feels too tired to keep fighting. She got out of bed today, sitting in the chair. She has decreased appetite but no nausea, vomiting, or diarrhea. PHYSICAL EXAMINATION: She is alert and oriented in no acute distress. NECK: Supple with no jugular venous distention (JVD). HEART: Normal S1, S2. Systolic ejection murmur 2/6, unchanged. LUNGS: Crackles at the bases bilaterally residential up. ABDOMEN: Soft, nontender. No hepatosplenomegaly. EXTREMITIES: No clubbing, cyanosis or edema. Decubitus ulcer, sacral, has a wound vacuum-assisted closure (VAC). In place. According to the nurse there is some slough that needs to be debrided, but I did not see the ulcer today. NEUROLOGIC: Moves all extremities. She has normal speech. IMPRESSION: 1. Staphylococcus aureus bacteremia. Source remains to be determined. It could be from her sacral decubitus ulcer. Patient on intravenous (IV) cefazolin 2 grams every 8 hours. 2. History of coronary artery bypass graft (CABG) and aortic valve replacement. Patient has scheduled transesophageal echocardiogram and chest CT. She has finally agreed to have that done. 3. Congestive heart failure with mild hypoxia. Patient still has crackles at bases. LABORATORY DATA: Blood cultures times four sets were positive on November 17, negative on November 19 and November 20, total of four blood cultures. White count 8.2, hemoglobin 9.2, hematocrit 27.7, platelets 79. Sodium 143, potassium 4.3, chloride 108, bicarbonate 30, BUN 15, creatinine 0.85, glucose 91, calcium 8.2, magnesium 2. CRP 11.9. ESR 63. PLAN: Transesophageal echocardiogram and chest CT tomorrow. Continue IV cefazolin 2 grams every 8 hours for a total of 6 weeks. Patient will need rehabilitation. Case has been discussed with the patient and her daughter, Francoise. [place]
[2020-11-23] MEDS: FUROSEMIDE 20 MG TAB PO SCH (10:19)
[2020-11-23] MEDS: SODIUM CHLORIDE 0.9% INJ 10 ML SYR IV PRN (10:20)
--- NOTE | 2020-11-23 10:41 | IPNPDOC ---
Subjective Date Seen The patient was seen on 11/23/20. Subjective Chief Complaint/HPI Patient had CT chest this morning ultimately and she is scheduled for BLAYNE today. Patient appears to be in better mood. She is requiring 1/2 to 1 L of oxygen Objective Physical Examination General Exam: Positive: Alert, Cooperative, No Acute Distress Eye Exam: Positive: PERRLA, Conjunctiva & lids normal, EOMI; Negative: Sclera icteric ENT Exam: Positive: Atraumatic, Mucous membr. moist/pink, Pharynx Normal Neck Exam: Positive: Supple; Negative: JVD, thyromegaly Chest Exam: Positive: Normal air movement, Other (bibasillar crackles extending up to the mid back of chest) Heart Exam: Positive: Rate Normal, Regular Rhythm, Normal S1, Normal S2, Murmurs (systolic murmur heard all over the precordium); Negative: Rubs Abdomen Exam: Positive: Normal bowel sounds, Soft; Negative: Tenderness Extremity Exam: Negative: Clubbing, Cyanosis, Edema Skin Exam: Positive: Breakdown (Has pressure decubitus ulcer that was debrided prior to admission and packed, no surrounding erythema or drainage.) Neuro Exam: Positive: Normal Speech, Strength at 5/5 X4 ext, Normal Tone Psych Exam: Positive: Oriented x 3 Assessment /Plan Assessment 85 y/o W with a history of cad s/p CABG in July 2020, Atrial appendicular exclusion device placement, Pacemaker placement, a-fib, chf, htn, copd, gout, hypothyroidism, depression, sacral decubital ulcer, who presented to the ED on 11/16 for right hip pain after a fall and now admitted for sepsis presumed 2/2 pna as well as acute on chronic anemia requiring transfusion. Sepsis could be due to pneumonia or from decubiti. CT abd and pelvis showed: Bibasilar infiltrates with interstitial coarsening and fibro-atelectatic change, left greater than right. CT chest with bibasilar atelectasis left greater than right some consolidations on the left basa, small b/l pleural efussions and mod pulmonary vascular congestion. Subtle stranding surrounding sternotomy is nonspecific but without discrete drainable collection/abscess. Blood cultures 4/4 from 11/17 positive for gram positive cocci in chairs, clus ters and pairs, MSSA and Streptococcus group C. BC from 11/19/20 negative MSSA bacteremia Source yet undetermined. Lungs/ skin and soft tissues has pacemaker in place, has atrial appendicular occlusion device BLAYNE to evaluate for vegetations. Discussed with Dr Haddad. ID consult appreciated Will need 6 weeks of antibiotics. Last date December 31, 2020 Stage 4 Sacral decubiti evaluated by Dr Ford had debridement done on the day prior to admission 11/16/20 will continue with wound care as per Dr ford's recommendations wound vac placed Acute on chronic anemia Patient has macrocytic anemia with MCV of 102.3, hb of 7 With history of cad, transfusion is indicated. Goal hb is >8. 2u pRBCs transfused Iron studies no significant iron deficiency No deficiency of b12 or folate. 2 units of prbc received GEOVANNI resolved Thrombocytopenia chronic No heparin. Recurrent falls Potentially secondary to deconditioning from prolonged recent hospital stay. Patient had refused to go to rehab when she was discharged from [facility]. PT/OT R hip pain/ low back pain imaging performed in the ED for right hip did not show no acute fracture likely contusion. ultracet CAD/CABG in August 2020 continue nitro PRN, asa, statin Restart metoprolol Aortic stenosis Status post aortic valve replacement along with CABG in August 2020 CHF Will restart metoprolol TTE done report pending, LBAYNE to be done will restart lasix HLD continue atorvastatin A-fib s/p pacer and atrial appendicular occlusion device placement in August 2020 patient not currently on anticoagulation, however is anemic as well requiring blood, will have to complete anemia workup and note if H/H drops acutely after which there may be discussion about AC. 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 Restart metoprolol Gout continue ursodiol Depression/anxiety continue sertraline, mirtazapine, seroquel Hypothyroidism continue synthroid Vertebral compression fractures. T11, T12, L2 chronic Bilateral inguinal hernias. fat filled. Diverticulosis Hiatal hernia small Plan/VTE VTE Prophylaxis Ordered?: Yes VS, I&O, 24H, Fishbone Vital Signs/I&O Vital Signs Date Time Temp Pulse Resp B/P (MAP) Pulse Ox O2 Delivery O2 Flow Rate FiO2 11/23/20 09:53 86 141/73 11/23/20 09:53 13 11/23/20 06:00 97.8 95 Nasal Cannula 0.5 I&O- Last 24 Hours up to 6 AM 11/23/20 05:59 Intake Total 1070 ml Output Total 425 ml Balance 645 ml Laboratory Data 24H LABS Laboratory Tests 2 11/23/20 05:24: Nucleated Red Blood Cells % (auto) 0.0, Anion Gap 2L, Glomerular Filtration Rate > 60.0, Calcium Level 8.0L, Magnesium Level 2.0 CBC/BMP Laboratory Tests 11/23/20 05:24 Microbiology Microbiology 11/21/20 Blood Culture - Preliminary, Resulted No Growth after 48 hours. All Specime... 11/20/20 Blood Culture - Preliminary, Resulted No Growth after 72 hours. All specime... 11/20/20 Blood Culture - Preliminary, Resulted No Growth after 72 hours. All specime... 11/19/20 Blood Culture - Preliminary, Resulted No Growth after 72 hours. All specime... 11/17/20 Blood Culture - Final, Complete Staphylococcus Aureus 11/17/20 Blood Culture - Final, Complete Staphylococcus Aureus 11/17/20 Blood Culture - Final, Complete Staphylococcus Aureus Streptococcus Group C 11/17/20 Blood Culture - Final, Complete Staphylococcus Aureus Miley Preciado MD Nov 23, 2020 10:41
[2020-11-23 14:00] VITALS: BP_SYST 51; BP_SYST 93; BP_DIAS 51
[2020-11-23 21:00] VITALS: O2SAT 94
[2020-11-23] MEDS: MIRTAZAPINE 15 MG TAB PO SCH (21:11)
[2020-11-23] MEDS: QUEtiapine FUMARATE 25 MG TAB PO SCH (21:11)
[2020-11-23] MEDS: ATORVASTATIN 20 MG TAB PO SCH (21:11)
[2020-11-23 22:00] VITALS: BP 133/67
[2020-11-24] MEDS: ceFAZolin SOD 2 GM in IV 1 EA IV SCH ×3 (02:44→17:19)
[2020-11-24 06:03] VITALS: BP 150/64
[2020-11-24] MEDS: LEVOTHYROXINE 100MCG TABLET (0.1MG) PO SCH (06:14)
[2020-11-24] MEDS: SODIUM CHLORIDE 0.9% INJ 10 ML SYR IV SCH ×2 (06:15→18:11)
[2020-11-24 06:36] LABS: HEMATOCRIT 25.9 % (36.0-47.0); HEMOGLOBIN 8.9 g/dl (12.0-15.5); MEAN CORPUSCULAR HEMOGLOBIN 35.7 pg (27.0-33.0); MEAN CORPUSCULAR HGB CONC 34.4 g/dl (32.0-36.5); RED BLOOD COUNT 2.49 10^6/uL (4.00-5.40); WHITE BLOOD COUNT 6.8 10^3/uL (4.0-10.0)
[2020-11-24 06:37] LABS: PLATELET COUNT, AUTOMATED 82 10^3/uL (150-450)
[2020-11-24] MEDS: SERTRALINE HCL 50 MG TAB PO SCH (10:49)
[2020-11-24] MEDS: DOCUSATE SODIUM 100MG CAPSULE PO SCH ×2 (10:49→21:07)
[2020-11-24] MEDS: ASPIRIN 81 MG CHEW TABLET PO SCH (10:49)
[2020-11-24] MEDS: FOLIC ACID 1 MG TAB PO SCH (10:50)
[2020-11-24] MEDS: ursodioL 300 MG CAP PO SCH ×2 (10:50→21:07)
[2020-11-24] MEDS: METOPROLOL TART 12.5 MG PER 1/2 TAB PO SCH ×2 (10:50→21:11)
[2020-11-24] MEDS: FUROSEMIDE 20 MG TAB PO SCH (10:51)
[2020-11-24] MEDS: ULTRACET TAB PO SCH ×2 (11:12→21:07)
[2020-11-24 21:00] VITALS: O2SAT 89
[2020-11-24] MEDS: QUEtiapine FUMARATE 25 MG TAB PO SCH (21:07)
[2020-11-24] MEDS: ATORVASTATIN 20 MG TAB PO SCH (21:07)
[2020-11-24] MEDS: MIRTAZAPINE 15 MG TAB PO SCH (21:07)
[2020-11-24 22:00] VITALS: BP 123/79
[2020-11-25] MEDS: ceFAZolin SOD 2 GM in IV 1 EA IV SCH ×3 (01:27→17:53)
[2020-11-25] MEDS: LEVOTHYROXINE 100MCG TABLET (0.1MG) PO SCH (05:48)
[2020-11-25] MEDS: SODIUM CHLORIDE 0.9% INJ 10 ML SYR IV SCH ×2 (05:48→18:50)
[2020-11-25 06:48] VITALS: BP 126/76
[2020-11-25] MEDS: ASPIRIN 81 MG CHEW TABLET PO SCH (08:17)
[2020-11-25] MEDS: DOCUSATE SODIUM 100MG CAPSULE PO SCH ×2 (08:18→20:29)
[2020-11-25] MEDS: SERTRALINE HCL 50 MG TAB PO SCH (08:18)
[2020-11-25] MEDS: FOLIC ACID 1 MG TAB PO SCH (08:18)
[2020-11-25] MEDS: METOPROLOL TART 12.5 MG PER 1/2 TAB PO SCH ×2 (08:18→20:32)
[2020-11-25] MEDS: ursodioL 300 MG CAP PO SCH ×2 (08:18→20:29)
[2020-11-25] MEDS: FUROSEMIDE 20 MG TAB PO SCH (08:18)
[2020-11-25] MEDS: ULTRACET TAB PO SCH ×2 (09:00→20:29)
[2020-11-25] MEDS: oxyCODONE 5MG TAB PO PRN (17:41)
[2020-11-25] MEDS: ATORVASTATIN 20 MG TAB PO SCH (20:29)
[2020-11-25] MEDS: MIRTAZAPINE 15 MG TAB PO SCH (20:29)
[2020-11-25] MEDS: QUEtiapine FUMARATE 25 MG TAB PO SCH (20:29)
[2020-11-25 21:00] VITALS: O2SAT 89
--- NOTE | 2020-11-25 21:51 | REP ---
INDICATION: usp antibiotics/no iv access. COMPARISON: None. TECHNIQUE: The procedure was performed under the direct supervision of Dr. East. The risks and benefits of the procedure were explained to the patient and informed consent was obtained. The right basilic vein was localized using ultrasound guidance. The skin was prepped and draped in a sterile fashion. 1 mL of 1% lidocaine was used as a local anesthetic. Using ultrasound guidance the basilic vein was cannulated and a 0.018 guidewire was inserted and advanced to the SVC using fluoroscopic guidance, and last image hold technology. The needle was removed and a 5 Telugu dilator and peel-away sheath was inserted over the guide wire. A 5 Telugu dual lumen catheter was cut to length of 36 cm. The dilator was removed and the catheter was inserted over the guide wire with the tip ending in the SVC. The peel-away sheath was removed and the catheter was flushed with heparinized saline as per Hospital protocol. The catheter was affixed to the skin and a sterile dressing was applied. Estimated blood loss: Less than 1 mL The patient tolerated the procedure well and there were no immediate complications. 0.1 minutes of fluoro time was utilized for this procedure. FINDINGS: None IMPRESSION: PICC line insertion right basilic vein with the tip ending in the SVC. <Electronically signed by Parth Sherman > 11/19/20 [id number] <Electronically signed by Miky East > 11/25/20 [id number]
[2020-11-26] MEDS: ceFAZolin SOD 2 GM in IV 1 EA IV SCH ×3 (02:43→17:57)
[2020-11-26 06:00] VITALS: BP 136/74
[2020-11-26] MEDS: LEVOTHYROXINE 100MCG TABLET (0.1MG) PO SCH (06:11)
[2020-11-26] MEDS: SODIUM CHLORIDE 0.9% INJ 10 ML SYR IV SCH ×2 (06:11→17:57)
[2020-11-26] MEDS: FOLIC ACID 1 MG TAB PO SCH (08:44)
[2020-11-26] MEDS: ASPIRIN 81 MG CHEW TABLET PO SCH (08:44)
[2020-11-26] MEDS: ULTRACET TAB PO SCH ×2 (08:44→20:31)
[2020-11-26] MEDS: METOPROLOL TART 12.5 MG PER 1/2 TAB PO SCH ×2 (08:44→20:30)
[2020-11-26] MEDS: SERTRALINE HCL 50 MG TAB PO SCH (08:45)
[2020-11-26] MEDS: FUROSEMIDE 20 MG TAB PO SCH (08:45)
[2020-11-26] MEDS: DOCUSATE SODIUM 100MG CAPSULE PO SCH ×2 (08:45→20:28)
[2020-11-26] MEDS: ursodioL 300 MG CAP PO SCH ×2 (08:45→20:32)
--- NOTE | 2020-11-26 08:50 | ECHO ---
ECHOCARDIOGRAM DATE OF PROCEDURE: 11/20/2020 Age: 85 Gender: Female Height: 150 cm Weight: 63 kg REFERRING PHYSICIAN: Miley Preciado M.D. PATIENT LOCATION: Room 3225. REASON FOR THE TESTING: Bacteremia.: MEASUREMENTS: 2D Measurements: IVS 1.4 cm LVPW 1.3 cm LV 4.9 cm Aortic root 3.2 cm Left atrium 5.1 cm Doppler Measurements: Peak velocity across the aortic valve 2.0 m/sec Peak gradient across the aortic valve 16 mmHg Mean gradient across the aortic valve 10 mmHg Peak velocity across the LVOT 0.8 m/sec Mitral E 1.2 Mitral A 0.4 with a ratio of 2.8 Maximum tricuspid valve velocity 3.2 m/sec 2D COMMENTS: 1. Mildly increased left ventricular wall thickness with normal left ventricular size and a low normal global left ventricular systolic function. The estimated left ventricular systolic ejection fraction is 50-55%. 2. Moderately enlarged left atrium. The right atrium also appeared to be enlarged. Normal right ventricle. 3. The atrial septum appeared to be normal without evidence of defect or shunt. 4. Normal aortic root. 5. No pericardial effusion seen. 6. Bioprosthetic valve noted in the aortic valve position. Leaflet excursion appeared to be normal. Moderately calcified mitral annulus with normal anterior mitral valve leaflet motion. Normal tricuspid valve and pulmonic valve. The proximal pulmonary artery branches were not well visualized. 7. The inferior vena cava was not well visualized. DOPPLER: It detects moderate mitral regurgitation, severe tricuspid regurgitation and mild pulmonic regurgitation. The calculated pulmonary artery systolic pressure varies between 40-50 mmHg. Assessment of the left ventricular diastolic function appeared to be normal, but limited by artifact. IMPRESSION: 1. Low normal global left ventricular systolic function with mild concentric left ventricular hypertrophy. Assessment of the left ventricular diastolic function was limited by artifact. 2. Bioprosthetic aortic valve with normal function. No evidence of aortic regurgitation or significant stenosis. 3. Mitral annulus calcification with a moderately enlarged left atrium and moderate mitral regurgitation. 4. Severe tricuspid regurgitation with moderate pulmonary hypertension and a dilated atrium. 5. Mild pulmonic regurgitation. 6. Pacemaker wire artifact was noted in the right heart chambers. 7. If vegetations are a concern, to consider a transesophageal echocardiogram. [facility]
[2020-11-26] MEDS: ATORVASTATIN 20 MG TAB PO SCH (20:29)
[2020-11-26] MEDS: QUEtiapine FUMARATE 25 MG TAB PO SCH (20:29)
[2020-11-26] MEDS: MIRTAZAPINE 15 MG TAB PO SCH (20:29)
[2020-11-26] MEDS: SODIUM CHLORIDE 0.9% INJ 10 ML SYR IV PRN (20:33)
[2020-11-26 21:00] VITALS: O2SAT 91
[2020-11-27] MEDS: ceFAZolin SOD 2 GM in IV 1 EA IV SCH ×3 (01:06→18:04)
[2020-11-27] MEDS: SODIUM CHLORIDE 0.9% INJ 10 ML SYR IV PRN ×2 (02:11→19:15)
[2020-11-27] MEDS: ACETAMINOPHEN TAB 650MG DOSE (2X325MG) PO PRN (05:41)
[2020-11-27] MEDS: LEVOTHYROXINE 100MCG TABLET (0.1MG) PO SCH (05:41)
[2020-11-27] MEDS: SODIUM CHLORIDE 0.9% INJ 10 ML SYR IV SCH ×2 (05:43→18:04)
[2020-11-27 05:58] LABS: BASO % 0.1 % (0.0-1.0); EOS % 0.1 % (0.0-3.0); HEMATOCRIT 26.6 % (36.0-47.0); HEMOGLOBIN 8.7 g/dl (12.0-15.5); LYMPH # 0.7 10^3/uL (1.5-5.0); LYMPH % 5.8 % (24.0-44.0); MEAN CORPUSCULAR HEMOGLOBIN 33.2 pg (27.0-33.0); MEAN CORPUSCULAR HGB CONC 32.7 g/dl (32.0-36.5); MEAN CORPUSCULAR VOLUME 101.5 fl (80.0-96.0); MONO # 0.8 10^3/uL (0.0-0.8); MONO % 7.1 % (2.0-8.0); NEUTROPHILS # 9.9 10^3/uL (1.5-8.5); NEUTROPHILS % 85.9 % (36.0-66.0); RED BLOOD COUNT 2.62 10^6/uL (4.00-5.40); WHITE BLOOD COUNT 11.5 10^3/uL (4.0-10.0)
[2020-11-27 06:00] VITALS: BP 137/58
[2020-11-27 06:00] LABS: PLATELET COUNT, AUTOMATED 93 10^3/uL (150-450)
[2020-11-27 06:23] LABS: ERYTHROCYTE SEDIMENTATION RATE 68 mm/hr (0-30)
[2020-11-27 06:26] LABS: BLOOD UREA NITROGEN 17 MG/DL (7-18); CALCIUM LEVEL 7.9 MG/DL (8.8-10.2); CARBON DIOXIDE LEVEL 31 MEQ/L (21-32); CHLORIDE LEVEL 105 MEQ/L (98-107); CREATININE FOR GFR 0.86 MG/DL (0.55-1.30); GLOMERULAR FILTRATION RATE > 60.0 (>32); GLUCOSE, FASTING 90 MG/DL (70-100); POTASSIUM SERUM 4.5 MEQ/L (3.5-5.1); SODIUM LEVEL 139 MEQ/L (136-145)
[2020-11-27] MEDS: FUROSEMIDE 20 MG TAB PO SCH (08:49)
[2020-11-27] MEDS: FOLIC ACID 1 MG TAB PO SCH (08:49)
[2020-11-27] MEDS: ULTRACET TAB PO SCH ×2 (08:49→20:12)
[2020-11-27] MEDS: ASPIRIN 81 MG CHEW TABLET PO SCH (08:49)
[2020-11-27] MEDS: ursodioL 300 MG CAP PO SCH ×2 (08:49→20:11)
[2020-11-27] MEDS: SERTRALINE HCL 50 MG TAB PO SCH (08:49)
[2020-11-27] MEDS: DOCUSATE SODIUM 100MG CAPSULE PO SCH ×2 (08:49→20:09)
[2020-11-27] MEDS: METOPROLOL TART 12.5 MG PER 1/2 TAB PO SCH ×2 (08:50→20:12)
--- NOTE | 2020-11-27 15:40 | IPNPDOC ---
Date Seen The patient was seen on 11/27/20. Progress Note SUBJECTIVE: Patient was seen examined at bedside. Doing well. No acute events overnight. Sitting on edge of bed eating breakfast. Denies any fever chills chest pain palpitations nausea vomiting diarrhea. Patient stated the daughter is also discussed with her the possibility of doing a BLAYNE, but patient has refused. OBJECTIVE PHYSICAL EXAMINATION: VITAL SIGNS: please see below General: NAD, comfortable HEENT: PERRLA, EOMI, sclerae clear Neck: supple, normal ROM, no JVD Respiratory: lungs CTAB, no wheeze, no rales, no crackles CVS: RRR, normal S1, S2, no murmurs Abdo: soft, no masses, no hepatosplenomegaly, BS+, no rebound tenderness Extremities: no edema, pulses 2+ MSK: no joint deformities, normal ROM. Wound VAC in place. Neuro: no focal neuro deficits, moving all 4 extremities, CN2-12 intact. Strength 5/5 in all 4 extremities. No nystagmus. Psych: calm, cooperative, AAO x 3 LABORATORY DATA, IMAGING STUDIES, MICROBIOLOGY: Please see below. DVT prophylaxis ordered?: Yes 85 y/o W with a history of cad s/p CABG in July 2020, Atrial appendicular exclusion device placement, Pacemaker placement, a-fib, chf, htn, copd, gout, hypothyroidism, depression, sacral decubital ulcer, who presented to the ED on 11/16 for right hip pain after a fall and now admitted for sepsis presumed 2/2 pna as well as acute on chronic anemia requiring transfusion. Sepsis could be due to pneumonia or from decubiti. CT abd and pelvis showed: Bibasilar infiltrates with interstitial coarsening and fibro-atelectatic change, left greater than right. CT chest with bibasilar atelectasis left greater than right some consolidations on the left basa, small b/l pleural efussions and mod pulmonary vascular congestion. Subtle stranding surrounding sternotomy is nonspecific but without discrete drainable collection/abscess. Blood cultures 4/4 from 11/17 positive for gram positive cocci in chairs, clusters and pairs, MSSA and Streptococcus group C. BC from 11/19/20 negative MSSA bacteremia Source yet undetermined. Lungs/ skin and soft tissues has pacemaker in place, has atrial appendicular occlusion device BLAYNE to evaluate for vegetations. Discussed with Dr Haddad. Patient refused BLAYNE. ID consult appreciated Will need 6 weeks of antibiotics. Last date December 31, 2020 Stage 4 Sacral decubiti evaluated by Dr Ford had debridement done on the day prior to admission 11/16/20 will continue with wound care as per Dr ford's recommendations wound vac placed Acute on chronic anemia Patient has macrocytic anemia with MCV of 102.3, hb of 7 With history of cad, transfusion is indicated. Goal hb is >8. 2u pRBCs transfused Iron studies no significant iron deficiency No deficiency of b12 or folate. 2 units of prbc received GEOVANNI resolved Thrombocytopenia chronic No heparin. Recurrent falls Potentially secondary to deconditioning from prolonged recent hospital stay. Patient had refused to go to rehab when she was discharged from [facility]. PT/OT R hip pain/ low back pain imaging performed in the ED for right hip did not show no acute fracture likely contusion. ultracet CAD/CABG in August 2020 continue nitro PRN, asa, statin Restart metoprolol Aortic stenosis Status post aortic valve replacement along with CABG in August 2020 CHF Will restart metoprolol TTE done report pending, BLAYNE to be done will restart lasix HLD continue atorvastatin A-fib s/p pacer and atrial appendicular occlusion device placement in August 2020 patient not currently on anticoagulation, however is anemic as well requiring blood, will have to complete anemia workup and note if H/H drops acutely after which there may be discussion about AC. With her history of falls i do not think she is a good candidate for intermediate designer AC. Restart metoprolol Gout continue ursodiol Depression/anxiety continue sertraline, mirtazapine, seroquel Hypothyroidism continue synthroid Vertebral compression fractures. T11, T12, L2 chronic Bilateral inguinal hernias. fat filled. Diverticulosis Hiatal hernia small VS, I&O, 24H, Fishbone Vital Signs/I&O Vital Signs Date Time Temp Pulse Resp B/P (MAP) Pulse Ox O2 Delivery O2 Flow Rate FiO2 11/27/20 08:50 91 144/91 11/27/20 08:49 18 11/27/20 06:00 97.5 93 Room Air 11/25/20 06:48 0.5 I&O- Last 24 Hours up to 6 AM 11/27/20 06:00 Intake Total 950 ml Output Total 300 ml Balance 650 ml Laboratory Data 24H LABS Laboratory Tests 2 11/27/20 05:47: Immature Granulocyte % (Auto) 1.0, Neutrophils (%) (Auto) 85.9H, Lymphocytes (%) (Auto) 5.8L, Monocytes (%) (Auto) 7.1, Eosinophils (%) (Auto) 0.1, Basophils (%) (Auto) 0.1, Neutrophils # (Auto) 9.9H, Lymphocytes # (Auto) 0.7L, Monocytes # (Auto) 0.8, Eosinophils # (Auto) 0.0, Basophils # (Auto) 0.0, Nucleated Red Blood Cells % (auto) 0.0, Immature Platelet Fraction 9.7H, Erythrocyte Sedimentation Rate 68H, Anion Gap 3L, Glomerular Filtration Rate > 60.0, Calcium Level 7.9L, C-Reactive Protein, Quantitative 2.60H CBC/BMP Laboratory Tests 11/27/20 05:47 Microbiology Microbiology 11/21/20 Blood Culture - Final, Complete NO GROWTH AFTER 5 DAYS 11/20/20 Blood Culture - Final, Complete NO GROWTH AFTER 5 DAYS 11/20/20 Blood Culture - Final, Complete NO GROWTH AFTER 5 DAYS 11/19/20 Blood Culture - Final, Complete NO GROWTH AFTER 5 DAYS 11/17/20 Blood Culture - Final, Complete Staphylococcus Aureus 11/17/20 Blood Culture - Final, Complete Staphylococcus Aureus 11/17/20 Blood Culture - Final, Complete Staphylococcus Aureus Streptococcus Group C 11/17/20 Blood Culture - Final, Complete Staphylococcus Aureus CINTHYA HAN MD Nov 27, 2020 15:40
--- NOTE | 2020-11-27 18:37 | IPN ---
PROGRESS NOTE DATE: 11/27/2020 SUBJECTIVE: Earlene seems to be doing well except that now she is frustrated because she wants to go home. She has not had any visitations because of COVID restrictions. She wants to go home to take care of her daughter. Her daughter wants her to go to rehab for at least a week to improve ambulation. She has no nausea, vomiting or diarrhea and no abdominal pain, cough or shortness of breath. She refused transesophageal echocardiogram. PHYSICAL EXAMINATION: GENERAL: She is alert, oriented, in no acute distress. HEART: Normal S1, S2, systolic ejection murmur 2/6 unchanged. LUNGS: Few crackles at the bases. ABDOMEN: Soft, nontender. No hepatosplenomegaly. EXTREMITIES: No cyanosis, clubbing or edema. Decubitus ulcer measuring 4 x 2 cm with tunnel measuring about 4 cm between 12 and 3 with some slough. I did not get to see the decub as the wound VAC was changed earlier today. LABORATORY DATA: White count 11.5, hemoglobin 8.7, hematocrit 26.6, platelets 93,000, 85% neutrophils, 5% leukocytes, 7% lymphocytes. Sodium 139, potassium 4.5, chloride 105, bicarb 31, BUN 17, creatinine 0.86, glucose 90. Calcium 7.9. CRP 2.6 down from 11.6. ESR 68. IMPRESSION: 1. Staphylococcus aureus bacteremia in a patient who is status post recent aortic valve replacement and CABG: CT chest had surgical nonspecific findings, but no evidence of abscess. Transesophageal echocardiogram was refused by the patient. The patient will be treated with six weeks of I.V. Cefazolin 2 grams every 8 hours with planned end of therapy December 31. 2. Sacral decubitus ulcer: She has a wound VAC that will need to be changed three times a week. PLAN: The patient's daughter was called with my I-phone, we did a FaceTime with her with the presence of the nurse in the room and the patient who was very frustrated and wanted to go home. The patient has agreed on trying a couple more days of rehabilitation before going home to the care of her daughter. We will FaceTime with the daughter again on Thursday. Continue I.V. Cefazolin, monitor weekly labs with CBC, basic CRP, ESR. MTDD
[2020-11-27] MEDS: QUEtiapine FUMARATE 25 MG TAB PO SCH (20:10)
[2020-11-27] MEDS: MIRTAZAPINE 15 MG TAB PO SCH (20:10)
[2020-11-27] MEDS: ATORVASTATIN 20 MG TAB PO SCH (20:11)
[2020-11-27 21:00] VITALS: O2SAT 90
[2020-11-28] MEDS: ceFAZolin SOD 2 GM in IV 1 EA IV SCH ×3 (01:24→17:57)
[2020-11-28] MEDS: SODIUM CHLORIDE 0.9% INJ 10 ML SYR IV PRN ×2 (02:26→19:41)
[2020-11-28] MEDS: LEVOTHYROXINE 100MCG TABLET (0.1MG) PO SCH (05:53)
[2020-11-28] MEDS: SODIUM CHLORIDE 0.9% INJ 10 ML SYR IV SCH ×3 (05:53→17:57)
[2020-11-28 06:00] VITALS: BP 127/79
[2020-11-28] MEDS: ULTRACET TAB PO SCH ×2 (09:09→20:15)
[2020-11-28] MEDS: ASPIRIN 81 MG CHEW TABLET PO SCH (09:11)
[2020-11-28] MEDS: ursodioL 300 MG CAP PO SCH ×2 (09:11→20:10)
[2020-11-28] MEDS: METOPROLOL TART 12.5 MG PER 1/2 TAB PO SCH ×2 (09:11→20:14)
[2020-11-28] MEDS: FOLIC ACID 1 MG TAB PO SCH (09:12)
[2020-11-28] MEDS: SERTRALINE HCL 50 MG TAB PO SCH (09:12)
[2020-11-28] MEDS: FUROSEMIDE 20 MG TAB PO SCH (09:12)
[2020-11-28] MEDS: DOCUSATE SODIUM 100MG CAPSULE PO SCH ×2 (09:12→20:09)
[2020-11-28 09:20] LABS: EOS % 0.2 % (0.0-3.0); HEMATOCRIT 26.1 % (36.0-47.0); HEMOGLOBIN 8.6 g/dl (12.0-15.5); LYMPH # 0.5 10^3/uL (1.5-5.0); LYMPH % 7.7 % (24.0-44.0); MEAN CORPUSCULAR HEMOGLOBIN 34.4 pg (27.0-33.0); MEAN CORPUSCULAR VOLUME 104.4 fl (80.0-96.0); MONO # 0.4 10^3/uL (0.0-0.8); MONO % 7.2 % (2.0-8.0); NEUTROPHILS # 5.1 10^3/uL (1.5-8.5); NEUTROPHILS % 83.9 % (36.0-66.0); WHITE BLOOD COUNT 6.1 10^3/uL (4.0-10.0)
[2020-11-28 09:23] LABS: PLATELET COUNT, AUTOMATED 77 10^3/uL (150-450)
[2020-11-28 09:49] LABS: BLOOD UREA NITROGEN 18 MG/DL (7-18); CALCIUM LEVEL 8.2 MG/DL (8.8-10.2); CARBON DIOXIDE LEVEL 33 MEQ/L (21-32); CHLORIDE LEVEL 106 MEQ/L (98-107); CREATININE FOR GFR 0.89 MG/DL (0.55-1.30); GLOMERULAR FILTRATION RATE > 60.0 (>32); GLUCOSE, FASTING 115 MG/DL (70-100); POTASSIUM SERUM 5.1 MEQ/L (3.5-5.1); SODIUM LEVEL 139 MEQ/L (136-145)
[2020-11-28] MEDS: ATORVASTATIN 20 MG TAB PO SCH (20:09)
[2020-11-28] MEDS: QUEtiapine FUMARATE 25 MG TAB PO SCH (20:09)
[2020-11-28] MEDS: MIRTAZAPINE 15 MG TAB PO SCH (20:09)
[2020-11-29] MEDS: ceFAZolin SOD 2 GM in IV 1 EA IV SCH ×3 (02:07→17:30)
[2020-11-29] MEDS: SODIUM CHLORIDE 0.9% INJ 10 ML SYR IV PRN (03:11)
[2020-11-29] MEDS: SODIUM CHLORIDE 0.9% INJ 10 ML SYR IV SCH ×2 (05:32→18:29)
[2020-11-29] MEDS: LEVOTHYROXINE 100MCG TABLET (0.1MG) PO SCH (05:33)
[2020-11-29 06:00] VITALS: BP 113/88
[2020-11-29] MEDS: ULTRACET TAB PO SCH ×2 (09:00→21:00)
[2020-11-29] MEDS: METOPROLOL TART 12.5 MG PER 1/2 TAB PO SCH ×2 (09:20→21:46)
[2020-11-29] MEDS: DOCUSATE SODIUM 100MG CAPSULE PO SCH ×2 (09:20→21:47)
[2020-11-29] MEDS: ursodioL 300 MG CAP PO SCH ×2 (09:20→21:48)
[2020-11-29] MEDS: ASPIRIN 81 MG CHEW TABLET PO SCH (09:20)
[2020-11-29] MEDS: FUROSEMIDE 20 MG TAB PO SCH (09:20)
[2020-11-29] MEDS: SERTRALINE HCL 50 MG TAB PO SCH (09:20)
[2020-11-29] MEDS: FOLIC ACID 1 MG TAB PO SCH (09:20)
[2020-11-29] MEDS: MIRTAZAPINE 15 MG TAB PO SCH (21:47)
[2020-11-29] MEDS: QUEtiapine FUMARATE 25 MG TAB PO SCH (21:47)
[2020-11-29] MEDS: ATORVASTATIN 20 MG TAB PO SCH (21:48)
[2020-11-30] MEDS: ceFAZolin SOD 2 GM in IV 1 EA IV SCH ×3 (02:12→19:01)
[2020-11-30] MEDS: SODIUM CHLORIDE 0.9% INJ 10 ML SYR IV SCH ×2 (05:39→20:53)
[2020-11-30] MEDS: LEVOTHYROXINE 100MCG TABLET (0.1MG) PO SCH (05:41)
[2020-11-30 06:27] VITALS: BP 125/62
[2020-11-30] MEDS: DOCUSATE SODIUM 100MG CAPSULE PO SCH ×2 (08:34→20:11)
[2020-11-30] MEDS: ULTRACET TAB PO SCH ×2 (08:34→20:13)
[2020-11-30] MEDS: SERTRALINE HCL 50 MG TAB PO SCH (08:35)
[2020-11-30] MEDS: FOLIC ACID 1 MG TAB PO SCH (08:35)
[2020-11-30] MEDS: ursodioL 300 MG CAP PO SCH ×2 (08:35→20:10)
[2020-11-30] MEDS: ASPIRIN 81 MG CHEW TABLET PO SCH (08:35)
[2020-11-30] MEDS: FUROSEMIDE 20 MG TAB PO SCH (08:35)
[2020-11-30] MEDS: METOPROLOL TART 12.5 MG PER 1/2 TAB PO SCH ×2 (08:35→20:13)
--- NOTE | 2020-11-30 18:23 | IPN ---
PROGRESS NOTE DATE: 11/30/2020 Earlene is in good spirits today. She thinks she is doing well. She has no complaints. No cough, shortness of breath. No nausea, vomiting, or diarrhea. On changing of her wound vacuum-assisted closure (VAC) she has some pain in the sacral area. Labs on November 28: White count 6.1, hemoglobin 8.6, hematocrit 26.1, Sodium 139, potassium 5.1, chloride 106, bicarbonate 33, BUN 18, creatinine 0.89, glucose 115, calcium 8.2, C-reactive protein 2.6. Blood cultures: No growth on November 20 and November 21. PHYSICAL EXAMINATION: HEART: Normal s1, S2 with a systolic ejection murmur 2/6 at the left upper sternal border. Sternum well healed. LUNGS: Crackles at both bases. No wheezes or rhonchi. ABDOMEN: Soft, nontender. No hepatosplenomegaly. EXTREMITIES: No clubbing, cyanosis, or edema. Decubitus ulcer measuring 4 x 2 cm with granulation tissue. No purulence. There is minimal erythema around the wound, less than half a centimeter around. Mild tenderness to touch. IMPRESSION: 1. Staphylococcus bacteremia. Patient had recent aortic valve replacement and coronary artery bypass graft (CABG). Transesophageal echocardiogram was refused by the patient. The patient will be treated with 6 weeks of intravenous (IV) cefazolin 2 grams every 8 hours with end of therapy planned for December 31. 2. Sacral decubitus ulcer without clinical evidence of osteomyelitis. Wound VAC in place. Wound is improving. PLAN: Patient is being considered for rehabilitation. She has been able to walk around the nurses station, correction through the station and back with walker. She is doing much better. Appetite is great. Will discuss with social media sr strategy manager discharge planning. Continue IV cefazolin until December 31. MTDD
[2020-11-30] MEDS: ATORVASTATIN 20 MG TAB PO SCH (20:11)
[2020-11-30] MEDS: MIRTAZAPINE 15 MG TAB PO SCH (20:12)
[2020-11-30] MEDS: QUEtiapine FUMARATE 25 MG TAB PO SCH (20:12)
[2020-12-01] MEDS: ceFAZolin SOD 2 GM in IV 1 EA IV SCH ×3 (01:17→18:23)
[2020-12-01] MEDS: SODIUM CHLORIDE 0.9% INJ 10 ML SYR IV PRN (02:22)
[2020-12-01 06:00] VITALS: BP 125/60
[2020-12-01] MEDS: SODIUM CHLORIDE 0.9% INJ 10 ML SYR IV SCH ×2 (06:04→21:33)
[2020-12-01] MEDS: LEVOTHYROXINE 100MCG TABLET (0.1MG) PO SCH (06:04)
[2020-12-01] MEDS: ASPIRIN 81 MG CHEW TABLET PO SCH (09:43)
[2020-12-01] MEDS: FOLIC ACID 1 MG TAB PO SCH (09:43)
[2020-12-01] MEDS: DOCUSATE SODIUM 100MG CAPSULE PO SCH ×2 (09:43→21:36)
[2020-12-01] MEDS: ursodioL 300 MG CAP PO SCH ×2 (09:44→21:36)
[2020-12-01] MEDS: SERTRALINE HCL 50 MG TAB PO SCH (09:44)
[2020-12-01] MEDS: FUROSEMIDE 20 MG TAB PO SCH (09:44)
[2020-12-01] MEDS: ULTRACET TAB PO SCH ×2 (09:45→21:00)
[2020-12-01] MEDS: METOPROLOL TART 12.5 MG PER 1/2 TAB PO SCH ×2 (09:48→21:37)
[2020-12-01] MEDS: MIRTAZAPINE 15 MG TAB PO SCH (21:36)
[2020-12-01] MEDS: QUEtiapine FUMARATE 25 MG TAB PO SCH (21:36)
[2020-12-01] MEDS: ATORVASTATIN 20 MG TAB PO SCH (21:36)
[2020-12-02] VITALS (8 sets, daily range): BP systolic 94–124; BP diastolic 46–97
[2020-12-02] MEDS: ceFAZolin SOD 2 GM in IV 1 EA IV SCH ×3 (01:14→17:41)
[2020-12-02] MEDS: SODIUM CHLORIDE 0.9% INJ 10 ML SYR IV PRN ×2 (02:17→04:12)
[2020-12-02] MEDS: ONDANSETRON 4MG/2ML VIAL IV PRN (04:12)
[2020-12-02] MEDS: SODIUM CHLORIDE 0.9% INJ 10 ML SYR IV SCH ×2 (05:27→17:42)
[2020-12-02] MEDS: LEVOTHYROXINE 100MCG TABLET (0.1MG) PO SCH (05:27)
[2020-12-02 06:31] LABS: BASO % 0.1 % (0.0-1.0); EOS % 0.4 % (0.0-3.0); HEMATOCRIT 21.3 % (36.0-47.0); HEMOGLOBIN 7.5 g/dl (12.0-15.5); LYMPH # 0.3 10^3/uL (1.5-5.0); LYMPH % 2.9 % (24.0-44.0); MEAN CORPUSCULAR HEMOGLOBIN 37.7 pg (27.0-33.0); MEAN CORPUSCULAR HGB CONC 35.2 g/dl (32.0-36.5); MONO # 0.9 10^3/uL (0.0-0.8); MONO % 8.5 % (2.0-8.0); NEUTROPHILS # 8.9 10^3/uL (1.5-8.5); NEUTROPHILS % 87.3 % (36.0-66.0); PLATELET COUNT, AUTOMATED 108 10^3/uL (150-450); RED BLOOD COUNT 1.99 10^6/uL (4.00-5.40); WHITE BLOOD COUNT 10.1 10^3/uL (4.0-10.0)
[2020-12-02 06:55] LABS: ALBUMIN 2.1 GM/DL (3.2-5.2); ALT/SGPT < 6 U/L (12-78); BILIRUBIN,TOTAL 0.6 MG/DL (0.2-1.0); BLOOD UREA NITROGEN 14 MG/DL (7-18); CALCIUM LEVEL 7.9 MG/DL (8.8-10.2); CARBON DIOXIDE LEVEL 28 MEQ/L (21-32); CHLORIDE LEVEL 104 MEQ/L (98-107); CREATININE FOR GFR 1.09 MG/DL (0.55-1.30); GLOMERULAR FILTRATION RATE 50.7 (>32); GLUCOSE, FASTING 113 MG/DL (70-100); MAGNESIUM LEVEL 1.8 MG/DL (1.8-2.4); POTASSIUM SERUM 4.3 MEQ/L (3.5-5.1); SODIUM LEVEL 138 MEQ/L (136-145); TOTAL PROTEIN 5.6 GM/DL (6.4-8.2)
[2020-12-02] MEDS: DOCUSATE SODIUM 100MG CAPSULE PO SCH ×2 (08:02→20:29)
[2020-12-02] MEDS: ursodioL 300 MG CAP PO SCH ×2 (08:02→20:27)
[2020-12-02] MEDS: ASPIRIN 81 MG CHEW TABLET PO SCH (08:03)
[2020-12-02] MEDS: FOLIC ACID 1 MG TAB PO SCH (08:03)
[2020-12-02] MEDS: SERTRALINE HCL 50 MG TAB PO SCH (08:03)
[2020-12-02] MEDS: FUROSEMIDE 20 MG TAB PO SCH (08:03)
[2020-12-02] MEDS: ULTRACET TAB PO SCH ×2 (08:03→20:31)
[2020-12-02] MEDS: METOPROLOL TART 12.5 MG PER 1/2 TAB PO SCH ×2 (08:08→20:30)
[2020-12-02] MEDS ORDERED: IRON SUCROSE 100MG 5ML VIAL (J1756 PER 1MG) IV SCH (08:15)
[2020-12-02] MEDS ORDERED: NS 500 ML IV ONE (16:00)
--- NOTE | 2020-12-02 16:01 | REP ---
INDICATION: hypoxia. COMPARISON: Portable chest, 11/17/2020. TECHNIQUE: Upright AP portable chest image was obtained. FINDINGS: There is airspace disease in the left mid lung consistent with atelectasis or pneumonia. The right lung is clear. There are no pleural effusions. There is cardiomegaly and pulmonary venous hypertension without congestive heart failure. There is an aortic valve prosthesis and a left atrial appendage clip. There is a dual lead pacemaker with the device over the left upper chest. There is calcific vascular disease of the thoracic aorta. Status post median sternotomy. There is a new right PICC line with the tip in the area of the superior vena cava. IMPRESSION: 1. Interval placement of a right PICC line with the tip in the area of the superior vena cava. 2. Airspace disease in the midlung zone on the left consistent with atelectasis or pneumonia. 3. Other findings as noted, not significantly changed. <Electronically signed by Kevin Goetz > 12/02/20 [id number]
[2020-12-02] MEDS: IRON SUCROSE IV SCH (16:05)
[2020-12-02] MEDS: NS IV SCH (16:05)
[2020-12-02 18:06] LABS: BASO % 0.3 % (0.0-1.0); EOS % 0.1 % (0.0-3.0); HEMATOCRIT 26.6 % (36.0-47.0); HEMOGLOBIN 8.9 g/dl (12.0-15.5); LYMPH # 0.5 10^3/uL (1.5-5.0); LYMPH % 7.3 % (24.0-44.0); MEAN CORPUSCULAR HEMOGLOBIN 34.1 pg (27.0-33.0); MEAN CORPUSCULAR HGB CONC 33.5 g/dl (32.0-36.5); MEAN CORPUSCULAR VOLUME 101.9 fl (80.0-96.0); MONO # 0.7 10^3/uL (0.0-0.8); MONO % 9.2 % (2.0-8.0); NEUTROPHILS % 81.2 % (36.0-66.0); RED BLOOD COUNT 2.61 10^6/uL (4.00-5.40); WHITE BLOOD COUNT 7.4 10^3/uL (4.0-10.0)
--- NOTE | 2020-12-02 18:19 | IPNPDOC ---
Date Seen The patient was seen on 12/02/20. Progress Note SUBJECTIVE: Patient was seen examined at bedside. Doing well. No acute events overnight. Sitting on edge of bed eating breakfast. Denies any fever chills chest pain palpitations nausea vomiting diarrhea. Patient stated the daughter is also discussed with her the possibility of doing a BLAYNE, but patient has refused. OBJECTIVE PHYSICAL EXAMINATION: VITAL SIGNS: please see below General: NAD, comfortable HEENT: PERRLA, EOMI, sclerae clear Neck: supple, normal ROM, no JVD Respiratory: Crackles heard bilateral lung bases. Good inspiratory effort. CVS: RRR, normal S1, S2, no murmurs Abdo: soft, no masses, no hepatosplenomegaly, BS+, no rebound tenderness Extremities: 2+ edema bilaterally MSK: no joint deformities, normal ROM. Wound VAC in place. Neuro: no focal neuro deficits, moving all 4 extremities, CN2-12 intact. Strength 5/5 in all 4 extremities. No nystagmus. Psych: calm, cooperative, AAO x 3 LABORATORY DATA, IMAGING STUDIES, MICROBIOLOGY: Please see below. CXR: 12/02/2020 IMPRESSION: 1. Interval placement of a right PICC line with the tip in the area of the superior vena cava. 2. Airspace disease in the midlung zone on the left consistent with atelectasis or pneumonia. 3. Other findings as noted, not significantly changed. DVT prophylaxis ordered?: Yes 85 y/o W with a history of cad s/p CABG in July 2020, Atrial appendicular exclusion device placement, Pacemaker placement, a-fib, chf, htn, copd, gout, hypothyroidism, depression, sacral decubital ulcer, who presented to the ED on 11/16 for right hip pain after a fall and now admitted for sepsis presumed 2/2 pna as well as acute on chronic anemia requiring transfusion. Sepsis could be due to pneumonia or from decubiti. CT abd and pelvis showed: Bibasilar infiltrates with interstitial coarsening and fibro-atelectatic change, left greater than right. CT chest with bibasilar atelectasis left greater than right some consolidations on the left basa, small b/l pleural efussions and mod pulmonary vascular congestion. Subtle stranding surrounding sternotomy is nonspecific but without discrete drainable collection/abscess. Blood cultures / from 8/21 positive for gram positive cocci in chairs, clusters and pairs, MSSA and Streptococcus group C. BC from 11/19/20 negative Shortness of breath Patient has persistent edema as well as worsening shortness of breath particular after blood transfusion this afternoon. Will give 20 mg of IV Lasix due to labile blood pressures. Chest x-ray showing possible left lung zone consolidation and will check a pro-Aldair at this time patient has no fever no leukocytosis MSSA bacteremia Source yet undetermined. Lungs/ skin and soft tissues has pacemaker in place, has atrial appendicular occlusion device BLAYNE to evaluate for vegetations. Discussed with Dr Haddad. Patient refused BLAYNE. ID consult appreciated Will need 6 weeks of antibiotics. Last date December 31, 2020 Stage 4 Sacral decubiti evaluated by Dr Ford had debridement done on the day prior to admission 11/16/20 will continue with wound care as per Dr ford's recommendations wound vac placed Acute on chronic anemia Patient has macrocytic anemia with MCV of 102.3, hb of 7 With history of cad, transfusion is indicated. Goal hb is >8. 2u pRBCs transfused Iron level 24. Order Venofer 250x2 Ordered an additional 1 units as hemoglobin 7.5. Patient has been transfused a total of 4 units. Repeat CBC pending. GEOVANNI resolved Thrombocytopenia chronic No heparin. Recurrent falls Potentially secondary to deconditioning from prolonged recent hospital stay. William turner had refused to go to rehab when she was discharged from [facility]. PT/OT R hip pain/ low back pain imaging performed in the ED for right hip did not show no acute fracture likely contusion. ultracet CAD/CABG in August 2020 continue nitro PRN, asa, statin Restart metoprolol Aortic stenosis Status post aortic valve replacement along with CABG in August 2020 CHF Will restart metoprolol TTE done report pending, BLAYNE to be done will restart lasix HLD continue atorvastatin A-fib s/p pacer and atrial appendicular occlusion device placement in August 2020 patient not currently on anticoagulation, however is anemic as well requiring blood, will have to complete anemia workup and note if H/H drops acutely after which there may be discussion about AC. With her history of falls i do not think she is a good candidate for intermediate AC. Restart metoprolol Gout continue ursodiol Depression/anxiety continue sertraline, mirtazapine, seroquel Hypothyroidism continue synthroid Vertebral compression fractures. T11, T12, L2 chronic Bilateral inguinal hernias. fat filled. Diverticulosis Hiatal hernia small VS, I&O, 24H, Fishbone Vital Signs/I&O Vital Signs Date Time Temp Pulse Resp B/P (MAP) Pulse Ox O2 Delivery O2 Flow Rate FiO2 12/02/20 17:46 99.3 86 20 117/54 (75) 92 Nasal Cannula 1.0 I&O- Last 24 Hours up to 6 AM 12/02/20 06:00 Intake Total 893 ml Balance 893 ml Laboratory Data 24H LABS Laboratory Tests 2 12/02/20 05:26: Immature Granulocyte % (Auto) 0.8, Neutrophils (%) (Auto) 87.3H, Lymphocytes (%) (Auto) 2.9L, Monocytes (%) (Auto) 8.5H, Eosinophils (%) (Auto) 0.4, Basophils (%) (Auto) 0.1, Neutrophils # (Auto) 8.9H, Lymphocytes # (Auto) 0.3L, Monocytes # (Auto) 0.9H, Eosinophils # (Auto) 0.0, Basophils # (Auto) 0.0, Nucleated Red Blood Cells % (auto) 0.0, Anion Gap 6L, Glomerular Filtration Rate 50.7, Calcium Level 7.9L, Magnesium Level 1.8, Total Bilirubin 0.6, Aspartate Amino Transf (AST/SGOT) 17, Alanine Aminotransferase (ALT/SGPT) < 6L, Alkaline Phosphatase 167H, Total Protein 5.6L, Albumin 2.1L, Albumin/Globulin Ratio 0.6L 12/02/20 17:35: CBC/BMP Laboratory Tests 12/02/20 05:26 CINTHYA HAN MD Dec 02, 2020 18:19
[2020-12-02] MEDS ORDERED: FUROSEMIDE 20MG/2ML VIAL (J1940) IV ONE (18:30)
[2020-12-02 18:41] LABS: PLATELET COUNT, AUTOMATED 89 10^3/uL (150-450)
[2020-12-02] MEDS: MIRTAZAPINE 15 MG TAB PO SCH (20:28)
[2020-12-02] MEDS: ATORVASTATIN 20 MG TAB PO SCH (20:29)
[2020-12-02] MEDS: QUEtiapine FUMARATE 25 MG TAB PO SCH (20:30)
[2020-12-03] MEDS: ACETAMINOPHEN TAB 650MG DOSE (2X325MG) PO PRN (01:53)
[2020-12-03] MEDS: ceFAZolin SOD 2 GM in IV 1 EA IV SCH ×3 (01:53→18:22)
[2020-12-03] MEDS: SODIUM CHLORIDE 0.9% INJ 10 ML SYR IV PRN ×2 (03:00→21:14)
[2020-12-03] MEDS: LEVOTHYROXINE 100MCG TABLET (0.1MG) PO SCH (05:32)
[2020-12-03] MEDS: SODIUM CHLORIDE 0.9% INJ 10 ML SYR IV SCH ×2 (05:32→21:12)
[2020-12-03 06:00] VITALS: BP 109/55
[2020-12-03] MEDS: SERTRALINE HCL 50 MG TAB PO SCH (09:06)
[2020-12-03] MEDS: ASPIRIN 81 MG CHEW TABLET PO SCH (09:06)
[2020-12-03] MEDS: METOPROLOL TART 12.5 MG PER 1/2 TAB PO SCH ×2 (09:06→21:13)
[2020-12-03] MEDS: DOCUSATE SODIUM 100MG CAPSULE PO SCH ×2 (09:07→21:12)
[2020-12-03] MEDS: FUROSEMIDE 20 MG TAB PO SCH (09:07)
[2020-12-03] MEDS: FOLIC ACID 1 MG TAB PO SCH (09:07)
[2020-12-03] MEDS: ULTRACET TAB PO SCH ×2 (09:07→21:13)
[2020-12-03] MEDS: ursodioL 300 MG CAP PO SCH ×2 (09:07→21:12)
[2020-12-03] MEDS: IRON SUCROSE IV SCH (11:57)
[2020-12-03] MEDS: NS IV SCH (11:57)
[2020-12-03] MEDS ORDERED: FUROSEMIDE 40MG/4ML VIAL (J1940) IV ONE (14:00)
--- NOTE | 2020-12-03 15:35 | IPNPDOC ---
Date Seen The patient was seen on 12/03/20. Progress Note SUBJECTIVE: seen and examined at bedside. Appears upset today, feels frustrated with prolonged stay. Oxygen requirement increased to 3LPM via NC. Patient refused physical examination today. OBJECTIVE PHYSICAL EXAMINATION: - patient refused physical exam today LABORATORY DATA, IMAGING STUDIES, MICROBIOLOGY: Please see below. CXR: 12/02/2020 IMPRESSION: 1. Interval placement of a right PICC line with the tip in the area of the superior vena cava. 2. Airspace disease in the midlung zone on the left consistent with atelectasis or pneumonia. 3. Other findings as noted, not significantly changed. DVT prophylaxis ordered?: Yes 85 y/o W with a history of cad s/p CABG in July 2020, Atrial appendage clipping (confirmed with Dr. Haddad), Pacemaker placement, a-fib, chf, htn, copd, gout, hypothyroidism, depression, sacral decubital ulcer, who presented to the ED on 11/16 for right hip pain after a fall and now admitted for sepsis presumed 2/2 pna as well as acute on chronic anemia requiring transfusion. Sepsis - Resolved - CT abd and pelvis showed: Bibasilar infiltrates with interstitial coarsening and fibro-atelectatic change, left greater than right. - CT chest with bibasilar atelectasis left greater than right some consolidations on the left basa, small b/l pleural efussions and mod pulmonary vascular congestion. Subtle stranding surrounding sternotomy is nonspecific but without discrete drainable collection/abscess. - Blood cultures 07/01 from 11/17 positive for gram positive cocci in chairs, clusters and pairs, MSSA and Streptococcus group C. - BC from 11/19/20 negative - patient had a repeat CXR on 12/02/20, showing L mid lung airspace disease possible atelectasis vs infiltrate - at this stage, no leukocytosis, no fever, no cough. Will monitor clinically. Patient is presently on cefazolin until December 31, 2020. Shortness of breath Patient has persistent edema as well as worsening shortness of breath particular after blood transfusion on 12/02/20 Chest x-ray showing possible left lung zone consolidation and will check a pro-Aldair at this time patient has no fever no leukocytosis. BNP 4800. Gave 20 mg IV lasix. Unfortunately patient refused physical exam. Patient requires more O2, will give additional 40 mg IV lasix, as BP supports this. MSSA bacteremia Source yet undetermined. Lungs/ skin and soft tissues has pacemaker in place, has atrial appendicular occlusion device BLAYNE to evaluate for vegetations. Discussed with Dr Haddad. Patient refused BLAYNE. ID consult appreciated Will need 6 weeks of antibiotics. Last date December 31, 2020 Stage 4 Sacral decubiti evaluated by Dr Ford had debridement done on the day prior to admission 11/16/20 will continue with wound care as per Dr ford's recommendations wound vac placed Acute on chronic anemia Patient has macrocytic anemia with MCV of 102.3, hb of 7 With history of cad, transfusion is indicated. Goal hb is >8. 2u pRBCs transfused Iron level 24. Order Venofer 250x2 Ordered an additional 1 units as hemoglobin 7.5. Patient has been transfused a total of 4 units.Hgb improved to 8.9 fecal occult blood test ordered. GEOVANNI resolved Thrombocytopenia chronic No heparin. Recurrent falls Potentially secondary to deconditioning from prolonged recent hospital stay. Patient had refused to go to rehab when she was discharged from [facility]. PT/OT R hip pain/ low back pain imaging performed in the ED for right hip did not show no acute fracture likely contusion. ultracet CAD/CABG in August 2020 continue nitro PRN, asa, statin Restart metoprolol Aortic stenosis Status post aortic valve replacement along with CABG in August 2020 HFpEF - echo completed on 11/20/20 - LVEF 50-55%. bioprosthetic valve noted in AV valve position - c/w metoprolol HLD continue atorvastatin A-fib s/p pacer and atrial appendicular occlusion device placement in August 2020, per daughter received ablation metoprolol has been resumed patient has a history of frequent falling and is presently not on anticoagulation she has been transfused, and became anemia on 12/01/20, given another unit At this point, until further workup for anemia has been completed, she is not a good candidate for superintendent terminal AC. Gout continue ursodiol Depression/anxiety continue sertraline, mirtazapine, seroquel Hypothyroidism continue synthroid Vertebral compression fractures. T11, T12, L2 chronic Bilateral inguinal hernias. fat filled. Diverticulosis Hiatal hernia small, asymptomatic Dispo: currently working with [facility] to find rehab to complete course of cefazolin. I spoke to patient's daughter Francoise Galeano (tel: [phone]) and provided her with updates. VS, I&O, 24H, Fishbone Vital Signs/I&O Vital Signs Date Time Temp Pulse Resp B/P (MAP) Pulse Ox O2 Delivery O2 Flow Rate FiO2 12/03/20 12:11 3.0 12/03/20 09:07 18 12/03/20 09:06 85 152/78 12/03/20 06:00 97.4 94 Nasal Cannula I&O- Last 24 Hours up to 6 AM 12/03/20 06:00 Intake Total 2440 ml Output Total 250 ml Balance 2190 ml Laboratory Data 24H LABS Laboratory Tests 2 12/02/20 17:35: Immature Granulocyte % (Auto) 1.9, Neutrophils (%) (Auto) 81.2H, Lymphocytes (%) (Auto) 7.3L, Monocytes (%) (Auto) 9.2H, Eosinophils (%) (Auto) 0.1, Basophils (%) (Auto) 0.3, Neutrophils # (Auto) 6.0, Lymphocytes # (Auto) 0.5L, Monocytes # (Auto) 0.7, Eosinophils # (Auto) 0.0, Basophils # (Auto) 0.0, Nucleated Red Blood Cells % (auto) 0.0, Immature Platelet Fraction 10.0H 12/02/20 19:44: Procalcitonin 1.31 12/03/20 10:37: MC-Fge-X-Type Natriuretic Peptide 4686H CBC/BMP Laboratory Tests 12/02/20 17:35 CINTHYA HAN MD Dec 03, 2020 15:35
[2020-12-03 16:33] LABS: EOS % 0.4 % (0.0-3.0); HEMATOCRIT 27.8 % (36.0-47.0); LYMPH # 0.6 10^3/uL (1.5-5.0); LYMPH % 12.8 % (24.0-44.0); MEAN CORPUSCULAR HEMOGLOBIN 32.8 pg (27.0-33.0); MEAN CORPUSCULAR HGB CONC 32.4 g/dl (32.0-36.5); MEAN CORPUSCULAR VOLUME 101.5 fl (80.0-96.0); MONO # 0.5 10^3/uL (0.0-0.8); MONO % 11.5 % (2.0-8.0); NEUTROPHILS # 3.4 10^3/uL (1.5-8.5); RED BLOOD COUNT 2.74 10^6/uL (4.00-5.40); WHITE BLOOD COUNT 4.5 10^3/uL (4.0-10.0)
[2020-12-03 16:38] LABS: PLATELET COUNT, AUTOMATED 77 10^3/uL (150-450)
[2020-12-03 16:56] LABS: ALBUMIN 2.1 GM/DL (3.2-5.2); ALT/SGPT < 6 U/L (12-78); BILIRUBIN,TOTAL 0.7 MG/DL (0.2-1.0); BLOOD UREA NITROGEN 17 MG/DL (7-18); CALCIUM LEVEL 7.9 MG/DL (8.8-10.2); CARBON DIOXIDE LEVEL 32 MEQ/L (21-32); CHLORIDE LEVEL 105 MEQ/L (98-107); CREATININE FOR GFR 1.06 MG/DL (0.55-1.30); GLOMERULAR FILTRATION RATE 52.3 (>32); GLUCOSE, FASTING 104 MG/DL (70-100); MAGNESIUM LEVEL 1.8 MG/DL (1.8-2.4); POTASSIUM SERUM 4.2 MEQ/L (3.5-5.1); SODIUM LEVEL 140 MEQ/L (136-145); TOTAL PROTEIN 5.8 GM/DL (6.4-8.2)
[2020-12-03] MEDS: ATORVASTATIN 20 MG TAB PO SCH (21:12)
[2020-12-03] MEDS: MIRTAZAPINE 15 MG TAB PO SCH (21:13)
[2020-12-03] MEDS: QUEtiapine FUMARATE 25 MG TAB PO SCH (21:13)
[2020-12-03 22:00] VITALS: BP 114/65
[2020-12-04] MEDS: SODIUM CHLORIDE 0.9% INJ 10 ML SYR IV PRN ×5 (02:00→23:55)
[2020-12-04] MEDS: ceFAZolin SOD 2 GM in IV 1 EA IV SCH ×3 (02:00→17:28)
[2020-12-04] MEDS: LEVOTHYROXINE 100MCG TABLET (0.1MG) PO SCH (05:50)
[2020-12-04] MEDS: SODIUM CHLORIDE 0.9% INJ 10 ML SYR IV SCH ×2 (05:50→17:27)
[2020-12-04 06:00] VITALS: BP 94/57
[2020-12-04 06:15] LABS: HEMATOCRIT 24.6 % (36.0-47.0); MEAN CORPUSCULAR HEMOGLOBIN 33.3 pg (27.0-33.0); MEAN CORPUSCULAR HGB CONC 32.5 g/dl (32.0-36.5); MEAN CORPUSCULAR VOLUME 102.5 fl (80.0-96.0); PLATELET COUNT, AUTOMATED 71 10^3/uL (150-450); WHITE BLOOD COUNT 3.6 10^3/uL (4.0-10.0)
[2020-12-04 06:38] LABS: ALBUMIN 1.8 GM/DL (3.2-5.2); ALT/SGPT < 6 U/L (12-78); BILIRUBIN,TOTAL 0.6 MG/DL (0.2-1.0); BLOOD UREA NITROGEN 17 MG/DL (7-18); CALCIUM LEVEL 7.8 MG/DL (8.8-10.2); CARBON DIOXIDE LEVEL 32 MEQ/L (21-32); CHLORIDE LEVEL 106 MEQ/L (98-107); GLOMERULAR FILTRATION RATE > 60.0 (>32); GLUCOSE, FASTING 80 MG/DL (70-100); MAGNESIUM LEVEL 1.8 MG/DL (1.8-2.4); SODIUM LEVEL 141 MEQ/L (136-145); TOTAL PROTEIN 5.1 GM/DL (6.4-8.2)
[2020-12-04] MEDS: ULTRACET TAB PO SCH ×2 (09:00→22:51)
[2020-12-04] MEDS: ASPIRIN 81 MG CHEW TABLET PO SCH (09:32)
[2020-12-04] MEDS: FOLIC ACID 1 MG TAB PO SCH (09:33)
[2020-12-04] MEDS: SERTRALINE HCL 50 MG TAB PO SCH (09:33)
[2020-12-04] MEDS: DOCUSATE SODIUM 100MG CAPSULE PO SCH ×2 (09:33→22:43)
[2020-12-04] MEDS: FUROSEMIDE 20 MG TAB PO SCH (09:33)
[2020-12-04] MEDS: ursodioL 300 MG CAP PO SCH ×2 (09:33→22:43)
[2020-12-04] MEDS: METOPROLOL TART 12.5 MG PER 1/2 TAB PO SCH ×2 (09:34→22:44)
--- NOTE | 2020-12-04 13:30 | REP ---
INDICATION: r/o DVT COMPARISON: None. TECHNIQUE: Real time compression and duplex Doppler interrogation of the bilateral lower extremity deep venous system is performed. Compression ultrasound is performed of the bilateral peroneal and posterior tibial veins. FINDINGS: Bilaterally, the common femoral, superficial femoral and popliteal veins are fully compressible with transducer pressure and demonstrate normal spontaneous and phasic flow, without evidence of deep venous thrombosis. There is thrombosis of the left posterior tibial and peroneal veins. 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 IMPRESSION: No deep vein thrombosis above the level of the knees bilaterally. There is thrombosis of the left posterior tibial and peroneal veins in the superior left calf. <Electronically signed by Miky East > 12/04/20 [id number]
--- NOTE | 2020-12-04 17:26 | IPNPDOC ---
Text Note Date of Service The patient was seen on 12/04/20. NOTE Subjective: Patient has increased shortness of breath, he oxygen requirements increased to 2 L via nasal cannula. Patient refused IV medications Objective: GENERAL APPEARANCE: NAD HEENT: no scleral icterus, no JVD, EOMI CARDIOVASCULAR: S1S2 LUNGS: CTA ABDOMEN: soft & not tender w palpation MUSCULOSKELETAL: no cyanosis, +2 swelling of lower extremities bilaterally INTEGUMENT: no generalized pallor NEUROLOGICAL: cranial nerve function from 2-12 intact, follows commands, speech not dysarthric Assessment and plan Patient is 85 y/o W with a history of cad s/p CABG in July 2020, Atrial appendage clipping (confirmed with Dr. Haddad), Pacemaker placement, a-fib, chf, htn, c opd, gout, hypothyroidism, depression, sacral decubital ulcer, who presented to the ED on 11/16 for right hip pain after a fall and now admitted for sepsis presumed 2/2 pna as well as acute on chronic anemia requiring transfusion. Sepsis Unknown etiology Blood cultures positive for Blood cultures 07/01 from 11/17 positive for gram positive cocci in chairs, clusters and pairs, MSSA and Streptococcus group C. BC from 11/19/20 negative . Patient is presently on cefazolin until December 31, 2020 per ID recommendation Resolved Shortness of breath/acute diastolic CHF Most likely secondary to acute diastolic CHF superimposed with anemia BNP was elevated to 4800 Patient refused IV Lasix. Torsemide 20 mg twice daily I's and O's MSSA bacteremia Patient refused BLAYNE We will continue to physical therapy according to ID recommendation Repeated blood culture negative Stage 4 Sacral decubitus evaluated by Dr Wiley had debridement done on the day prior to admission 11/16/20 will continue with wound care as per Dr Wiley's recommendations wound vac placed Acute on chronic anemia Hemoglobin today 8 Folate, B12 within normal limit. There is concern for MDS given macrocytosis. Follow-up with dancing master in the outpatient settings Await stool for occult blood We will give 1 unit of blood Continue iron supplementation GEOVANNI resolved Thrombocytopenia Most likely multifactorial secondary to sepsis, medication side effects Follow-up with dancing master in the outpatient settings R hip pain/ low back pain imaging performed in the ED for right hip did not show no acute fracture likely contusion. ultracet CAD/CABG in August 2020 continue nitro PRN, asa, statin Restart metoprolol Aortic stenosis Status post aortic valve replacement along with CABG in August 2020 HFpEF - echo completed on 11/20/20 - LVEF 50-55%. bioprosthetic valve noted in AV valve position - c/w metoprolol HLD continue atorvastatin A-fib s/p pacer and atrial appendicular occlusion device placement in August 2020, per daughter received ablation metoprolol has been resumed patient has a history of frequent falling and is presently not on anticoagulation she has been transfused Gout Not in acute exacerbation Depression/anxiety continue sertraline, mirtazapine, seroquel Hypothyroidism continue synthroid Vertebral compression fractures. T11, T12, L2 chronic. We will prescribe calcium and vitamin D supplementation with alendronate Bilateral inguinal hernias. fat filled. Diverticulosis Not in acute exacerbation Hiatal hernia small, asymptomatic DVT prophylaxis with teds and sequential VS,Fishbone, I+O VS, Fishbone, I+O Laboratory Tests 12/04/20 06:00 Vital Signs Date Time Temp Pulse Resp B/P (MAP) Pulse Ox O2 Delivery O2 Flow Rate FiO2 12/04/20 09:34 87 115/66 12/04/20 09:00 2.0 12/04/20 09:00 16 12/04/20 06:00 97.5 95 Nasal Cannula I&O- Last 24 Hours up to 6 AM 12/04/20 06:00 Intake Total 372.5 ml Output Total 76 ml Balance 296.5 ml MANE CH DO Dec 04, 2020 17:26
[2020-12-04] MEDS: TORSEMIDE 20 MG TAB PO SCH (17:27)
[2020-12-04] MEDS: MOM 30ML SUSPENSION UDC PO PRN (17:49)
[2020-12-04 22:30] VITALS: BP 116/64
[2020-12-04] MEDS: ATORVASTATIN 20 MG TAB PO SCH (22:43)
[2020-12-04] MEDS: IRON POLYSAC (NIFEREX) 150 MG CAP PO SCH (22:44)
[2020-12-04] MEDS: MIRTAZAPINE 15 MG TAB PO SCH (22:44)
[2020-12-04] MEDS: QUEtiapine FUMARATE 25 MG TAB PO SCH (22:44)
[2020-12-05] VITALS (9 sets, daily range): BP systolic 100–147; BP diastolic 51–77
[2020-12-05] MEDS: ACETAMINOPHEN TAB 650MG DOSE (2X325MG) PO PRN (01:20)
[2020-12-05] MEDS: SODIUM CHLORIDE 0.9% INJ 10 ML SYR IV PRN ×4 (03:00→11:09)
[2020-12-05] MEDS: ceFAZolin SOD 2 GM in IV 1 EA IV SCH ×3 (03:00→18:27)
[2020-12-05] MEDS: LEVOTHYROXINE 100MCG TABLET (0.1MG) PO SCH (06:01)
[2020-12-05] MEDS: TORSEMIDE 20 MG TAB PO SCH ×2 (06:01→18:26)
[2020-12-05] MEDS: SODIUM CHLORIDE 0.9% INJ 10 ML SYR IV SCH ×2 (06:01→18:27)
[2020-12-05 06:39] LABS: HEMOGLOBIN 9.1 g/dl (12.0-15.5); MEAN CORPUSCULAR HGB CONC 32.5 g/dl (32.0-36.5); MEAN CORPUSCULAR VOLUME 101.4 fl (80.0-96.0); RED BLOOD COUNT 2.76 10^6/uL (4.00-5.40); WHITE BLOOD COUNT 4.2 10^3/uL (4.0-10.0)
[2020-12-05 06:40] LABS: PLATELET COUNT, AUTOMATED 74 10^3/uL (150-450)
[2020-12-05 06:54] LABS: ALBUMIN 1.8 GM/DL (3.2-5.2); ALT/SGPT < 6 U/L (12-78); BILIRUBIN,TOTAL 0.6 MG/DL (0.2-1.0); BLOOD UREA NITROGEN 18 MG/DL (7-18); C REACTIVE PROTEIN QUANTITATIV 2.42 MG/DL (0.00-0.30); CARBON DIOXIDE LEVEL 35 MEQ/L (21-32); CHLORIDE LEVEL 104 MEQ/L (98-107); CREATININE FOR GFR 0.85 MG/DL (0.55-1.30); GLOMERULAR FILTRATION RATE > 60.0 (>32); GLUCOSE, FASTING 78 MG/DL (70-100); MAGNESIUM LEVEL 1.9 MG/DL (1.8-2.4); POTASSIUM SERUM 4.3 MEQ/L (3.5-5.1); SODIUM LEVEL 139 MEQ/L (136-145); TOTAL PROTEIN 5.2 GM/DL (6.4-8.2)
[2020-12-05 07:32] LABS: ERYTHROCYTE SEDIMENTATION RATE 52 mm/hr (0-30)
[2020-12-05] MEDS: METOPROLOL TART 12.5 MG PER 1/2 TAB PO SCH ×2 (09:00→22:34)
[2020-12-05] MEDS: FOLIC ACID 1 MG TAB PO SCH (09:45)
[2020-12-05] MEDS: SERTRALINE HCL 50 MG TAB PO SCH (09:45)
[2020-12-05] MEDS: ASPIRIN 81 MG CHEW TABLET PO SCH (09:45)
[2020-12-05] MEDS: IRON POLYSAC (NIFEREX) 150 MG CAP PO SCH ×2 (09:45→22:30)
[2020-12-05] MEDS: ursodioL 300 MG CAP PO SCH (09:46)
[2020-12-05] MEDS: DOCUSATE SODIUM 100MG CAPSULE PO SCH ×2 (09:46→22:30)
[2020-12-05] MEDS: MOM 30ML SUSPENSION UDC PO PRN (09:47)
[2020-12-05] MEDS: ULTRACET TAB PO SCH ×2 (10:15→22:31)
[2020-12-05] MEDS: ONDANSETRON 4MG/2ML VIAL IV PRN (11:10)
--- NOTE | 2020-12-05 12:23 | IPNPDOC ---
Text Note Date of Service The patient was seen on 12/05/20. NOTE Subjective: Patient stated that she feels better today, her breathing improved and in the morning she was on room air. Objective: GENERAL APPEARANCE: NAD HEENT: no scleral icterus, no JVD, EOMI CARDIOVASCULAR: S1S2 LUNGS: CTA ABDOMEN: soft & not tender w palpation MUSCULOSKELETAL: no cyanosis, +1 swelling of lower extremities bilaterally INTEGUMENT: no generalized pallor NEUROLOGICAL: cranial nerve function from 2-12 intact, follows commands, speech not dysarthric Assessment and plan Patient is 85 y/o W with a history of cad s/p CABG in July 2020, Atrial appendage clipping (confirmed with Dr. Haddad), Pacemaker placement, a-fib, chf, htn, copd, gout, hypothyroidism, depression, sacral decubital ulcer, who presented to the ED on 11/16 for right hip pain after a fall and now admitted for sepsis presumed 2/2 pna as well as acute on chronic anemia requiring transfusion. Sepsis Unknown etiology Blood cultures positive for Blood cultures 07/01 from 11/17 positive for gram positive cocci in chairs, clusters and pairs, MSSA and Streptococcus group C. BC from 11/19/20 negative . Patient is presently on cefazolin until December 31, 2020 per ID recommendation Resolved Shortness of breath/acute diastolic CHF Most likely secondary to acute diastolic CHF superimposed with anemia BNP was elevated to 4800 Patient refused IV Lasix. Torsemide 20 mg twice daily I's and O's Improved MSSA bacteremia Patient refused BLAYNE We will continue to antibiotic therapy according to ID recommendation Repeated blood culture negative Stage 4 Sacral decubitus evaluated by Dr Wiley had debridement done on the day prior to admission 11/16/20 will continue with wound care as per Dr Wiley's recommendations wound vac placed Acute on chronic anemia Hemoglobin today 9.1. 1 unit of blood was given yesterday Folate, B12 within normal limit. There is concern for MDS given macrocytosis. Follow-up with lcac operator in the outpatient settings stool for occult blood Continue iron supplementation GEOVANNI resolved Thrombocytopenia Most likely multifactorial secondary to sepsis, medication side effects. I discontinued Ursodiol which can be cause of thrombocytopenia Follow-up with lcac operator in the outpatient settings R hip pain/ low back pain imaging performed in the ED for right hip did not show no acute fracture likely contusion. ultracet CAD/CABG in August 2020 continue nitro PRN, asa, statin Restart metoprolol Aortic stenosis Status post aortic valve replacement along with CABG in August 2020 HFpEF - echo completed on 11/20/20 - LVEF 50-55%. bioprosthetic valve noted in AV valve position - c/w metoprolol HLD continue atorvastatin A-fib s/p pacer and atrial appendicular occlusion device placement in August 2020, per daughter received ablation metoprolol has been resumed patient has a history of frequent falling and is presently not on anticoagulation Gout Not in acute exacerbation Depression/anxiety continue sertraline, mirtazapine, seroquel Hypothyroidism continue synthroid Vertebral compression fractures/osteoporosis T11, T12, L2 chronic I will start vitamin D, calcium supplementation, alendronate Bilateral inguinal hernias. Continue to monitor Diverticulosis Chronic, not in acute exacerbation Hiatal hernia small, asymptomatic DVT Doppler ultrasound shows No deep vein thrombosis above the level of the knees bilaterally. There is thrombosis of the left posterior tibial and peroneal veins in the superior left calf I talked vascular surgeon she recommended to start reduced dose of Eliquis 2.5 twice daily given thrombocytopenia. Appreciate/agree with vascular surgeon consult. DVT prophylaxis with teds and sequential and Eliquis VS,Fishbone, I+O VS, Fishbone, I+O Laboratory Tests 12/05/20 06:09 Vital Signs Date Time Temp Pulse Resp B/P (MAP) Pulse Ox O2 Delivery O2 Flow Rate FiO2 12/05/20 10:15 18 12/05/20 09:00 91 101/56 12/05/20 06:00 97.5 98 Nasal Cannula 1.0 I&O- Last 24 Hours up to 6 AM 12/05/20 06:00 Intake Total 401 ml Output Total 0 ml Balance 401 ml MANE CH DO Dec 05, 2020 12:23
[2020-12-05] MEDS: CALCIUM/VITAMIN D 500 MG TAB PO SCH (13:47)
--- NOTE | 2020-12-05 14:12 | IPNPDOC ---
Text Note Date of Service The patient was seen on 12/05/20 at 1.30 pm. NOTE Full consult to follow Dx: Acute L posterior tibial and Peroneal veins DVT Plan: Eliquis - while in [facility] Repeat LLE venous US in 3-5 d D/W patient's daughter the [facility] risk of DOAcs Dictation ID: [id number] VS,Fishbone, I+O VS, Fishbone, I+O Laboratory Tests 12/05/20 06:09 Vital Signs Date Time Temp Pulse Resp B/P (MAP) Pulse Ox O2 Delivery O2 Flow Rate FiO2 12/05/20 10:15 18 12/05/20 09:00 91 101/56 12/05/20 06:00 97.5 98 Nasal Cannula 1.0 I&O- Last 24 Hours up to 6 AM 12/05/20 06:00 Intake Total 401 ml Output Total 0 ml Balance 401 ml Macy Montgomery MD Dec 05, 2020 14:12
--- NOTE | 2020-12-05 16:43 | REP ---
INDICATION: rule out dvt COMPARISON: None. TECHNIQUE: Real time compression and duplex Doppler evaluation of the Left upper extremity deep venous system is performed. FINDINGS: The Left subclavian, jugular, axillary, brachial, basilic and cephalic veins are fully compressible where accessible with transducer pressure, and demonstrate no intraluminal thrombus and normal venous waveforms. There is no evidence of deep venous thrombosis.The Right subclavian vein is fully compressible where accessible with transducer pressure, and demonstrates no intraluminal thrombus and normal venous waveforms. There is a PICC line in the right arm venous system and a pacemaker catheter is seen in the left subclavian vein. IMPRESSION: No evidence of deep venous thrombosis of the Left upper extremity deep vein system. <Electronically signed by Miky East > 12/05/20 [id number]
[2020-12-05] MEDS: MIRTAZAPINE 15 MG TAB PO SCH (22:30)
[2020-12-05] MEDS: ATORVASTATIN 20 MG TAB PO SCH (22:30)
[2020-12-05] MEDS: QUEtiapine FUMARATE 25 MG TAB PO SCH (22:30)
[2020-12-05] MEDS: APIXABAN 2.5 MG TAB (ELIQUIS) PO SCH (22:30)
[2020-12-06] MEDS ORDERED: PANTOPRAZOLE 40MG VIAL (C9113 PER 1) IV ONE (00:10)
--- NOTE | 2020-12-06 00:12 | IPNPDOC ---
Text Note Date of Service Significant event NOTE Patient with OAC as noted in chart for DVT. She has decreased dosage given her thrombocytopenia and risk benefits noted in chart. Hemoccult was completed and showed positive. Of note, patient does have a known sacral decubiti. Anticipate this can be some transfer given the localized wound. Patient hemoglobin is stable as thankfully are her vital signs. Plan for monitoring; repeat H&H to be drawn soon. Will defer to attending for further GI work-up accordingly. VS,Fishbone, I+O VS, Fishbone, I+O Laboratory Tests 12/05/20 06:09 Vital Signs Date Time Temp Pulse Resp B/P (MAP) Pulse Ox O2 Delivery O2 Flow Rate FiO2 12/05/20 22:34 86 125/64 12/05/20 22:31 18 90 Room Air 12/05/20 14:00 98.5 12/05/20 06:00 1.0 I&O- Last 24 Hours up to 6 AM 12/06/20 06:00 Intake Total 1120 ml Output Total 250 ml Balance 870 ml LANDON ALLEN NP Dec 06, 2020 00:12
[2020-12-06] MEDS: SODIUM CHLORIDE 0.9% INJ 10 ML SYR IV PRN ×3 (00:59→05:41)
[2020-12-06] MEDS: ceFAZolin SOD 2 GM in IV 1 EA IV SCH ×3 (01:00→18:36)
[2020-12-06] MEDS: TORSEMIDE 20 MG TAB PO SCH ×2 (05:39→18:36)
[2020-12-06] MEDS: LEVOTHYROXINE 100MCG TABLET (0.1MG) PO SCH (05:40)
[2020-12-06] MEDS: SODIUM CHLORIDE 0.9% INJ 10 ML SYR IV SCH ×2 (05:41→18:37)
[2020-12-06 06:00] VITALS: BP 126/68
[2020-12-06 06:17] LABS: HEMATOCRIT 28.7 % (36.0-47.0); HEMOGLOBIN 9.5 g/dl (12.0-15.5); MEAN CORPUSCULAR HEMOGLOBIN 33.7 pg (27.0-33.0); MEAN CORPUSCULAR HGB CONC 33.1 g/dl (32.0-36.5); MEAN CORPUSCULAR VOLUME 101.8 fl (80.0-96.0); RED BLOOD COUNT 2.82 10^6/uL (4.00-5.40); WHITE BLOOD COUNT 4.7 10^3/uL (4.0-10.0)
[2020-12-06 06:19] LABS: PLATELET COUNT, AUTOMATED 75 10^3/uL (150-450)
[2020-12-06 06:46] LABS: ALT/SGPT < 6 U/L (12-78); BILIRUBIN,TOTAL 0.5 MG/DL (0.2-1.0); BLOOD UREA NITROGEN 19 MG/DL (7-18); CALCIUM LEVEL 8.2 MG/DL (8.8-10.2); CARBON DIOXIDE LEVEL 36 MEQ/L (21-32); CHLORIDE LEVEL 101 MEQ/L (98-107); CREATININE FOR GFR 1.03 MG/DL (0.55-1.30); GLOMERULAR FILTRATION RATE 54.1 (>32); GLUCOSE, FASTING 80 MG/DL (70-100); MAGNESIUM LEVEL 2.1 MG/DL (1.8-2.4); POTASSIUM SERUM 3.9 MEQ/L (3.5-5.1); SODIUM LEVEL 141 MEQ/L (136-145); TOTAL PROTEIN 5.4 GM/DL (6.4-8.2)
[2020-12-06] MEDS: ALENDRONATE 35MG TABLET PO SCH (06:51)
--- NOTE | 2020-12-06 07:52 | CR ---
CONSULTATION DATE: 12/05/2020 CONSULTING PHYSICIAN: ROBERT MURCIA MD REFERRING PHYSICIAN: Chi Allen DO, hospitalist REASON FOR CONSULTATION: Left lower extremity deep vein thrombosis, treatment with anticoagulation treated. HISTORY OF PRESENT ILLNESS: The patient is an 85-year-old lady, who was hospitalized on 11/17/2020, after she complained of right hip pain following a fall. She has history of atrial fibrillation, however, is not on anticoagulation, due to history of falls and high risk for bleeding. She was also admitted with a diagnosis of sepsis of unknown source, with MSSA bacteremia, for which she was advised intravenous Ancef by Dr. Abraham infectious diseases services. The patient was investigated with a right lower extremity venous ultrasound on 11/16/20, which was negative for DVT. She had a CT scan of the extremity, without contrast on 11/16/20, which revealed moderate osteoarthritis of the right hip, and no fractures. The patient has multiple medical morbidities, which include coronary artery disease for which she underwent CABG with three grafts, along with aortic valve replacement and pacemaker insertion at [facility] in [place] in 2020. She states that she has not been on anticoagulation after the above procedures. She denies any significant pain or swelling in the left leg or tenderness. She has history of CHF, and had dyspnea on exertion, along with hypoxia, for which she was supplemented with oxygen until today. She is off oxygen today, and saturating 94%. She is not in respiratory distress, and is sitting comfortably in the chair. She had a left lower extremity venous ultrasound on 12/04/20, for left leg swelling, although she did not have any pain or tenderness. This revealed deep venous thrombosis of the left posterior tibial vein and peroneal veins in the superior aspect of the calf. Although the nature of the thrombus whether it is acute or chronic has not been mentioned in the report, on reviewing the images, with [employer] vascular decontamination technician, it seemed that the thrombus is more of an acute nature. Due to the patient's history of dyspnea and shortness of breath, she had a contrast enhanced CT scan of the chest on 11/03/20, which revealed a sternotomy, aortic valve repair and pacemaker wires and no evidence of pulmonary embolism. She did have some bilateral pleural effusions and basal atelectasis. PAST MEDICAL HISTORY: 1. Hypertension. 2. COPD. 3. Hypothyroidism. 4. Gout. 5. Depression. The patient has history of falling twice, prior to the current hospitalization. She used to live alone, prior to her CABG and used to walk with the help of a walker with four wheels. She has not walked since the current admission. She is expected to be discharged to a rehab facility and then later she plans to go and live with her daughter, Francoise. After her CABG, and pacemaker placement, in August, the patient had a complicated course, with hospital-acquired pneumonia and a large sacral decubitus ulcer, that was debrided on 11/16/20. She also had to stay at a rehab facility for almost two months. She feels significantly deconditioned, since her CABG. Otherwise, she is awake, alert and appropriately responsive, and her mentation is very good. On the current hospitalization, she was admitted with sepsis criteria, including fever, hypoxia, tachycardia, hypertension, leukocytosis and anemia with a hemoglobin of 7. The patient was noted to have low platelet counts, in the range of 110 to 120,000, since June of 2020, and fluctuating within 100,000, during the current hospitalization. She, however, does not have any history, or signs and symptoms of significant internal bleeding. PAST SURGICAL HISTORY: 1. As mentioned above, CABG with three grafts, aortic valve replacement, pacemaker insertion. 2. Left total knee replacement. 3. Right arm open reduction and internal fixation. 4. Bilateral cataract removal with lens implants. SOCIAL HISTORY: As mentioned above, she lives alone. She never worked. Denies smoking, alcohol or IV drug abuse. FAMILY HISTORY: Noncontributory. ALLERGIES: CODEINE AND TRAMADOL. REVIEW OF SYSTEMS: Including the 12 major systems, that is general/constitutional, head and neck, cardiovascular, respiratory, gastrointestinal, genitourinary, musculoskeletal, skin, neurological, endocrine and psychiatric systems, are otherwise negative, apart from the above mentioned history. CURRENT MEDICATIONS: 1. Aspirin 81 mg daily. 2. Lipitor 40 mg daily. 3. Folic acid 1 mg daily. 4. DuoNebs p.r.n. 5. Synthroid 100 mcg daily. 6. Remeron 15 mg every evening. 7. Seroquel 25 mg every evening. 8. Zoloft 50 mg daily. 9. Ancef 2 gm IV q.8 hours. 10. Lopressor 12.5 mg b.i.d. 11. Torsemide 20 mg q.12 hours. 12. Os-Aldair 1 gm daily. 13. Fosamax 35 mg every week. 14. Iron supplements. 15. Other P.r.n. medications, including Colace, Milk of Magnesia, Mylanta. PHYSICAL EXAMINATION: Vital signs: Today revealed a temperature of 97.5 degrees Fahrenheit, heart rate of 87 irregular, respiratory rate of 17, and blood pressure of 101/56 millimeters mercury. She is saturating 94% on room air. Her body mass index is 30 General: The patient is a medium-built, elderly lady, who looks frail, but well- preserved for her age. She is sitting comfortably in a chair. She is not in acute distress. She is awake, alert and appropriately responsive. She is oriented to place and person, however, is mildly confused about her time periods. Head and neck: Revealed periorbital edema, anemia. She has a soft right carotid bruit. Upper extremities: She has bruising on the upper extremities. The left arm is swollen-seems to be due to multiple intravenous lines. She has a PICC line in the right arm. The right arm radial pulse is palpable, +2. The left arm radial pulse is nonpalpable. However, both hands are warm and well perfused. Cardiorespiratory: Revealed an ejection systolic murmur, in the right second intercostal space, with a loud S2. The median sternotomy scar is well healed. Bilateral air entry is equal in the mid and the upper zones. The air entry is decreased in both zones, along with intermediate creps and wheezing especially on the right side. Abdomen: Soft, no obvious masses. Nontender. Lower extremities: Both legs are swollen, especially from the knee down, along with pitting pedal edema. Both feet are warm and adequately perfused. The pulses are, however, nonpalpable. There is no sensory or motor dysfunction of the lower extremities. There is no asymmetrical swelling of the left leg or the calf. The left calf is not tender. Neurological: Grossly nonfocal exam. Psych: Normal affect and mood. CODE STATUS: SHE IS A DNR/DNI. LABORATORY DATA: Relevant labs and imaging have been reviewed. Her white count today is 4.2 thousand, hemoglobin of 9.1 gm%, platelet count of 74,000 stable. ESR 52. Her liver functions are within normal limits except for alkaline phosphatase which is mildly elevated. Albumin of 1.8, creatinine of 0.85. Relevant imaging as mentioned above. ASSESSMENT AND PLAN: The patient is an 85-year-old, frail lady, with risk of falls, with multiple medical comorbidities, and left lower extremity deep vein thrombosis. Although she is at increased risk for bleeding, compared to nonthrombocytopenic population, her platelets have been stable, and are above 50,000. She is, also, at higher risk for progression of DVT and possibly pulmonary embolism, with an increased risk of cardiorespiratory event, given her decreased mobility, location of the DVT and multiple comorbidities. 1. Hence, after weighing the risks and benefits of anticoagulation versus non-anticoagulation it was decided to initiate anticoagulation with Eliquis 2.5 mg twice a day, given her age, and given the fact that she will be monitored in the hospital environment, to prevent from falls. 2. Continue aspirin, especially as she had recent CABG in August of 2020. 3. Advise knee high HEATHER stockings and sequential compressive devices. 4. Repeat left lower extremity venous ultrasound in 3-5 days. The patient is planned to be discharged to rehabilitation facility. She plans to go and live with her daughter Francoise, after her discharge, from the rehabilitation facility. Suggest discussing the anticoagulation risks with her daughter, and to decide on continuing or discontinuing the anticoagulation long-term. In the event that she is discharged without anticoagulation, suggest repeating left lower extremity venous ultrasound weekly for the next 2-4 weeks. My impression and plan were discussed with the patient. She understands and agrees to the plan of care. TR[place]ON
[2020-12-06 10:00] VITALS: BP 110/60
[2020-12-06] MEDS: ULTRACET TAB PO SCH ×2 (10:37→21:39)
[2020-12-06] MEDS: ASPIRIN 81 MG CHEW TABLET PO SCH (11:56)
[2020-12-06] MEDS: CALCIUM/VITAMIN D 500 MG TAB PO SCH (12:00)
[2020-12-06] MEDS: DOCUSATE SODIUM 100MG CAPSULE PO SCH ×2 (12:01→21:40)
[2020-12-06] MEDS: SERTRALINE HCL 50 MG TAB PO SCH (12:01)
[2020-12-06] MEDS: IRON POLYSAC (NIFEREX) 150 MG CAP PO SCH ×2 (12:04→21:40)
[2020-12-06] MEDS: FOLIC ACID 1 MG TAB PO SCH (12:04)
[2020-12-06] MEDS: METOPROLOL TART 12.5 MG PER 1/2 TAB PO SCH ×2 (12:04→21:41)
[2020-12-06] MEDS: APIXABAN 2.5 MG TAB (ELIQUIS) PO SCH ×2 (12:05→21:39)
[2020-12-06 14:00] VITALS: BP 110/60
--- NOTE | 2020-12-06 14:09 | IPNPDOC ---
Text Note Date of Service The patient was seen on 12/06/20. NOTE Subjective: No new acute events overnight. Patient denied fever, chills, naus ea, secondary dysuria Objective: GENERAL APPEARANCE: NAD HEENT: no scleral icterus, no JVD, EOMI CARDIOVASCULAR: S1S2 LUNGS: CTA ABDOMEN: soft & not tender w palpation MUSCULOSKELETAL: no cyanosis, +1 swelling of lower extremities bilaterally INTEGUMENT: no generalized pallor NEUROLOGICAL: cranial nerve function from 2-12 intact, follows commands, speech not dysarthric Assessment and plan Patient is 85 y/o W with a history of cad s/p CABG in July 2020, Atrial appendage clipping (confirmed with Dr. Haddad), Pacemaker placement, a-fib, chf, htn, copd, gout, hypothyroidism, depression, sacral decubital ulcer, who presented to the ED on 11/16 for right hip pain after a fall and now admitted for sepsis presumed 2/2 pna as well as acute on chronic anemia requiring transfusion. Sepsis Unknown etiology Blood cultures positive for Blood cultures 07/01 from 11/17 positive for gram posi tive cocci in chairs, clusters and pairs, MSSA and Streptococcus group C. BC from 11/19/20 negative . Patient is presently on cefazolin until December 31, 2020 per ID recommendation Resolved Shortness of breath/acute diastolic CHF Most likely secondary to acute diastolic CHF superimposed with anemia BNP was elevated to 4800 Patient refused IV Lasix. Torsemide 20 mg twice daily I's and O's Improved MSSA bacteremia Patient refused BLAYNE We will continue to antibiotic therapy according to ID recommendation Repeated blood culture negative Stage 4 Sacral decubitus evaluated by Dr Wiley had debridement done on the day prior to admission 11/16/20 will continue with wound care as per Dr Wiley's recommendations wound vac placed Acute on chronic anemia Hemoglobin stable today Folate, B12 within normal limit. There is concern for MDS given macrocytosis. Follow-up with retail seasonal specialist in the outpatient settings stool for occult blood positive. Patient will need follow-up with GI team in the outpatient settings Continue iron supplementation GEOVANNI resolved Thrombocytopenia Most likely multifactorial secondary to sepsis, medication side effects. I discontinued Ursodiol which can be cause of thrombocytopenia Continue to monitor R hip pain/ low back pain imaging performed in the ED for right hip did not show no acute fracture likely contusion. ultracet CAD/CABG in August 2020 continue nitro PRN, asa, statin Restart metoprolol Aortic stenosis Status post aortic valve replacement along with CABG in August 2020 HFpEF - echo completed on 11/20/20 - LVEF 50-55%. bioprosthetic valve noted in AV valve position - c/w metoprolol HLD continue atorvastatin A-fib s/p pacer and atrial appendicular occlusion device placement in August 2020, per daughter received ablation metoprolol has been resumed patient has a history of frequent falling and is presently not on anticoagulation Gout Not in acute exacerbation Depression/anxiety continue sertraline, mirtazapine, seroquel Hypothyroidism continue synthroid Vertebral compression fractures/osteoporosis T11, T12, L2 chronic Continue vitamin D, calcium supplementation, alendronate Bilateral inguinal hernias. Continue to monitor Diverticulosis Chronic, not in acute exacerbation Hiatal hernia small, asymptomatic DVT Doppler ultrasound shows No deep vein thrombosis above the level of the knees bilaterally. There is thrombosis of the left posterior tibial and peroneal veins in the superior left calf I talked vascular surgeon she recommended to start reduced dose of Eliquis 2.5 twice daily given thrombocytopenia. Also recommended to repeat Doppler DVT in 4 to 5 days Patient will be transferred to [facility] DVT prophylaxis with teds and sequential and Eliquis VS,Fishbone, I+O VS, Fishbone, I+O Laboratory Tests 12/06/20 05:47 Vital Signs Date Time Temp Pulse Resp B/P (MAP) Pulse Ox O2 Delivery O2 Flow Rate FiO2 12/06/20 12:04 82 110/60 12/06/20 10:37 18 12/06/20 06:00 97.5 94 Nasal Cannula 1.0 I&O- Last 24 Hours up to 6 AM 12/06/20 06:00 Intake Total 1470 ml Output Total 450 ml Balance 1020 ml MANE CH DO Dec 06, 2020 14:09
--- NOTE | 2020-12-06 16:43 | IPNPDOC ---
Text Note Date of Service The patient was seen on 12/06/20 at 1:30 PM. NOTE Patient comfortable. Denies any pain in the left leg or calf. No shortness of breath. Afebrile vital signs stable. On Eliquis 2.5 mg twice a day. The patient is scheduled to be discharged to rehab. She did not discuss with her daughter regarding her anticoagulation. Her daughter left yesterday for [place], for the next 2 weeks. Labs reviewed: Hemoglobin and platelet counts stable Plan: Continue Eliquis 2.5 mg twice daily, while she is in the rehab, if no further contraindications or complications. Patient to discuss with her daughter after her daughter comes back regarding coagulation, whether to continue or discontinue Eliquis, based on her mobility status, rehabilitation potential, and further risk for fall/bleeding Please call with questions VS,Javi, I+O VS, Javi, I+O Laboratory Tests 12/06/20 05:47 Vital Signs Date Time Temp Pulse Resp B/P (MAP) Pulse Ox O2 Delivery O2 Flow Rate FiO2 12/06/20 14:00 99.0 80 17 110/60 (77) 89 Nasal Cannula 1.0 I&O- Last 24 Hours up to 6 AM 12/06/20 06:00 Intake Total 1470 ml Output Total 450 ml Balance 1020 ml Macy Montgomery MD Dec 06, 2020 16:43
[2020-12-06] MEDS: ATORVASTATIN 20 MG TAB PO SCH (21:39)
[2020-12-06] MEDS: QUEtiapine FUMARATE 25 MG TAB PO SCH (21:39)
[2020-12-06] MEDS: MIRTAZAPINE 15 MG TAB PO SCH (21:39)
[2020-12-07] MEDS: ceFAZolin SOD 2 GM in IV 1 EA IV SCH ×3 (02:10→18:03)
[2020-12-07] MEDS: SODIUM CHLORIDE 0.9% INJ 10 ML SYR IV SCH ×2 (05:19→18:04)
[2020-12-07] MEDS: LEVOTHYROXINE 100MCG TABLET (0.1MG) PO SCH (05:27)
[2020-12-07] MEDS: TORSEMIDE 20 MG TAB PO SCH ×2 (05:27→18:04)
[2020-12-07 06:00] VITALS: BP 122/70
[2020-12-07 06:10] LABS: HEMOGLOBIN 9.1 g/dl (12.0-15.5); MEAN CORPUSCULAR HEMOGLOBIN 33.6 pg (27.0-33.0); MEAN CORPUSCULAR HGB CONC 32.5 g/dl (32.0-36.5); MEAN CORPUSCULAR VOLUME 103.3 fl (80.0-96.0); RED BLOOD COUNT 2.71 10^6/uL (4.00-5.40); WHITE BLOOD COUNT 3.9 10^3/uL (4.0-10.0)
[2020-12-07 06:17] LABS: ALBUMIN 1.9 GM/DL (3.2-5.2); ALT/SGPT < 6 U/L (12-78); BILIRUBIN,TOTAL 0.5 MG/DL (0.2-1.0); BLOOD UREA NITROGEN 20 MG/DL (7-18); CALCIUM LEVEL 7.7 MG/DL (8.8-10.2); CARBON DIOXIDE LEVEL 38 MEQ/L (21-32); CHLORIDE LEVEL 98 MEQ/L (98-107); CREATININE FOR GFR 1.07 MG/DL (0.55-1.30); GLOMERULAR FILTRATION RATE 51.8 (>32); GLUCOSE, FASTING 80 MG/DL (70-100); MAGNESIUM LEVEL 2.3 MG/DL (1.8-2.4); PLATELET COUNT, AUTOMATED 72 10^3/uL (150-450); POTASSIUM SERUM 3.8 MEQ/L (3.5-5.1); SODIUM LEVEL 139 MEQ/L (136-145); TOTAL PROTEIN 5.2 GM/DL (6.4-8.2)
--- NOTE | 2020-12-07 07:55 | IPN ---
PROGRESS NOTE DATE: 12/06/2020 SUBJECTIVE: Earlene states she was fatigued today and was trying to take a nap in the afternoon. She states her appetite is good. She has no nausea, vomiting or diarrhea and no abdominal pain. She is ambulating well. She is not able to get discharged to the care of her daughter who went to [facility] for a couple of weeks to visit her daughter. The patient is on [facility] status. She was seen in consultation by vascular surgery for a deep venous thrombosis (DVT) on Eliquis. She denies any cough or shortness of breath. No chest pain. OBJECTIVE: Temperature is 99, pulse 80, respirations 17, blood pressure 110/60, O2 saturation 96% on 2 liters nasal canula. Heart: Normal S1, S2. Systolic ejection murmur 1/6. Lungs are clear. No wheezes, rales or rhonchi. Abdomen: Soft, nontender, no hepatosplenomegaly. Extremities: +1 lower extremity edema bilaterally. LABORATORY DATA: White count is 4.7, hemoglobin 9.5, hematocrit 28.7, platelets 75, but has remained stable, but on admission was 127. Erythrocyte sedimentation rate (ESR) 52, down from 68. Sodium 141, potassium 3.9, chloride 101, bicarbonate 36, BUN 19, creatinine 1.03, glucose 80, calcium 8.2, magnesium 2.1. AST 15, ALT 6, alkaline phosphatase 170, C-reactive protein 2.42 down from 11.9. Blood cultures are positive on 11/17, negative on 11/19. Blood cultures were positive for methicillin-susceptible Staphylococcus aureus (MSSA) Staphylococcus aureus. Left upper extremity Doppler with no deep venous thrombosis (DVT). Duplex extremity lower bilateral. There is thrombosis in the left posterior tibial and peroneal veins in the superior left calf. 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 IMPRESSION: 1. Methicillin-susceptible Staphylococcus aureus (MSSA) bacteremia in a patient who recently underwent coronary artery bypass grafting (CABG) and aortic valve replacement. 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 Transesophageal echocardiogram (BLAYNE) was not done as the patient refused; but in any event, the patient will still need to be treated with IV antibiotics with a planned treatment until December 31. 2. Sacral decubitus without evidence of osteomyelitis, wound is healing well. She has a wound VAC in place. 3. Deep venous thrombosis (DVT), lower extremity. The patient is on Eliquis 2.5 mg by mouth twice a day. PLAN: Continue with cefazolin 2 gm IV every 8 hours, end of therapy is 12/31. Please monitor complete blood count (CBC), basic, erythrocyte sedimentation rate (ESR), C-reactive protein weekly. The patient will need a follow up echocardiogram at the end of therapy and repeat surveillance blood cultures.
[2020-12-07] MEDS: IRON POLYSAC (NIFEREX) 150 MG CAP PO SCH ×2 (08:40→21:29)
[2020-12-07] MEDS: CALCIUM/VITAMIN D 500 MG TAB PO SCH (08:40)
[2020-12-07] MEDS: DOCUSATE SODIUM 100MG CAPSULE PO SCH ×2 (08:41→21:28)
[2020-12-07] MEDS: APIXABAN 2.5 MG TAB (ELIQUIS) PO SCH ×2 (08:41→21:28)
[2020-12-07] MEDS: ASPIRIN 81 MG CHEW TABLET PO SCH (08:41)
[2020-12-07] MEDS: METOPROLOL TART 12.5 MG PER 1/2 TAB PO SCH ×2 (08:41→21:29)
[2020-12-07] MEDS: FOLIC ACID 1 MG TAB PO SCH (08:41)
[2020-12-07] MEDS: SERTRALINE HCL 50 MG TAB PO SCH (08:41)
[2020-12-07] MEDS: ULTRACET TAB PO SCH ×2 (08:42→21:30)
--- NOTE | 2020-12-07 10:38 | IPN ---
PROGRESS NOTE DATE: 12/07/2020 SUBJECTIVE: Earlene is seen on [facility]. No fevers, chills or shortness of breath. I reviewed Dr. Abraham's note from yesterday. The note says that she feels the patient has Methicillin Staph aureus bacteremia, presumptive endocarditis. IV antibiotics with treatment planned to continue until 12/31/2020. Wound-Vac in place for sacral decubiti, DVT being treated with Eliquis. No fever, chills or shortness of breath. OBJECTIVE: She is afebrile. Vital signs are stable. Lungs are clear. Heart: Regular rhythm. Abdomen is soft, nontender. No peripheral edema. LABORATORY DATA: White count 5.9, hemoglobin 9.1, platelets are 72,000, sodium 139, potassium is 3.8, BUN 20, creatinine is 1.0, glucose is 80. IMPRESSION: Medically stable on the current regimen. Treatment date terminates 12/31/2020.
[2020-12-07] MEDS: QUEtiapine FUMARATE 25 MG TAB PO SCH (21:29)
[2020-12-07] MEDS: MIRTAZAPINE 15 MG TAB PO SCH (21:29)
[2020-12-07] MEDS: ATORVASTATIN 20 MG TAB PO SCH (21:29)
[2020-12-08] MEDS: SODIUM CHLORIDE 0.9% INJ 10 ML SYR IV PRN ×3 (02:10→05:18)
[2020-12-08] MEDS: ceFAZolin SOD 2 GM in IV 1 EA IV SCH ×2 (02:11→09:22)
[2020-12-08 05:14] VITALS: BP 126/62
[2020-12-08] MEDS: TORSEMIDE 20 MG TAB PO SCH ×2 (05:17→17:33)
[2020-12-08] MEDS: LEVOTHYROXINE 100MCG TABLET (0.1MG) PO SCH (05:17)
[2020-12-08] MEDS: SODIUM CHLORIDE 0.9% INJ 10 ML SYR IV SCH ×2 (05:17→17:33)
[2020-12-08 05:38] LABS: HEMATOCRIT 29.8 % (36.0-47.0); HEMOGLOBIN 9.6 g/dl (12.0-15.5); MEAN CORPUSCULAR HEMOGLOBIN 32.7 pg (27.0-33.0); MEAN CORPUSCULAR HGB CONC 32.2 g/dl (32.0-36.5); MEAN CORPUSCULAR VOLUME 101.4 fl (80.0-96.0); RED BLOOD COUNT 2.94 10^6/uL (4.00-5.40); WHITE BLOOD COUNT 4.6 10^3/uL (4.0-10.0)
[2020-12-08 05:40] LABS: PLATELET COUNT, AUTOMATED 79 10^3/uL (150-450)
[2020-12-08 06:11] LABS: ALT/SGPT < 6 U/L (12-78); BILIRUBIN,TOTAL 0.5 MG/DL (0.2-1.0); BLOOD UREA NITROGEN 23 MG/DL (7-18); CALCIUM LEVEL 8.2 MG/DL (8.8-10.2); CARBON DIOXIDE LEVEL 39 MEQ/L (21-32); CHLORIDE LEVEL 99 MEQ/L (98-107); CREATININE FOR GFR 1.16 MG/DL (0.55-1.30); GLOMERULAR FILTRATION RATE 47.2 (>32); GLUCOSE, FASTING 80 MG/DL (70-100); MAGNESIUM LEVEL 2.3 MG/DL (1.8-2.4); SODIUM LEVEL 139 MEQ/L (136-145); TOTAL PROTEIN 5.7 GM/DL (6.4-8.2)
[2020-12-08] MEDS: ULTRACET TAB PO SCH ×2 (09:00→21:21)
[2020-12-08] MEDS: METOPROLOL TART 12.5 MG PER 1/2 TAB PO SCH ×2 (09:00→21:00)
[2020-12-08] MEDS: DOCUSATE SODIUM 100MG CAPSULE PO SCH ×2 (09:22→21:19)
[2020-12-08] MEDS: IRON POLYSAC (NIFEREX) 150 MG CAP PO SCH ×2 (09:22→21:20)
[2020-12-08] MEDS: SERTRALINE HCL 50 MG TAB PO SCH (09:22)
[2020-12-08] MEDS: FOLIC ACID 1 MG TAB PO SCH (09:22)
[2020-12-08] MEDS: CALCIUM/VITAMIN D 500 MG TAB PO SCH (09:22)
[2020-12-08] MEDS: APIXABAN 2.5 MG TAB (ELIQUIS) PO SCH ×2 (09:22→21:19)
[2020-12-08] MEDS: ASPIRIN 81 MG CHEW TABLET PO SCH (09:23)
--- NOTE | 2020-12-08 09:55 | IPN ---
PROGRESS NOTE DATE: 12/08/2020 SUBJECTIVE: Earlene is seen in [facility]. There is no real change from yesterday. She is resting quite comfortably. She has a history of methicillin-sensitive Staphylococcus aureus bacteremia, presumptive endocarditis and has a wound VAC. She is on IV Ancef until 12/31/20. PHYSICAL EXAMINATION: Afebrile. Vital signs stable. Lungs: Clear. Heart: Regular rate and rhythm. Abdomen: soft, nontender. IMPRESSION/PLAN: 1. Continue current regimen, Ancef for presumptive endocarditis. 2. Hyperlipidemia. Continue on atorvastatin 40 mg daily. 3. Hypothyroidism. Continue current dose of levothyroxine 100 mcg daily. 4. Hypertension. Blood pressure is well controlled with her regimen. 5. Atrial fibrillation. Rate is controlled. She is on Eliquis 2.5 mg twice a day.
[2020-12-08 14:00] VITALS: BP 104/52
--- NOTE | 2020-12-08 15:55 | IPN ---
PROGRESS NOTE DATE: 12/07/2020 SUBJECTIVE: Earlene was sitting at the bedside visiting with Sister Joleen. She was in a good mood. She understands she needs to spend another two weeks in the hospital because her daughter is in [facility] visiting her granddaughters. She has been active, walking around the nurses' station. She is eating well. She has no nausea, vomiting or diarrhea and no fever or chills. She had some shortness of breath with exertion. OBJECTIVE: On physical examination, temperature is 97, pulse 82, respirations 13, blood pressure 122/72, O2 saturation 97%, this is on 1 liter nasal canula, but this morning the patient does not have her oxygen on. Heart: Normal S1, S2. Faint systolic ejection murmur heard at the left upper sternal border. The sternum is well healed. Abdomen is soft, nontender and no hepatosplenomegaly. Lungs: Crackles on both sides about [address] Extremities: No edema. LABORATORY: White count 3.9, hemoglobin 91, hematocrit 28, Sodium 139, potassium 3.8, chloride 98, bicarbonate 38, BUN 20, creatinine 1.07. MEDICATIONS: Cefazolin 2 gm IV every 8 hours. 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 The patient will continue IV antibiotics until 12/31/2020. Sacral decubitus ulcer. She has a wound VAC and the wound is healing well. Plan to discharge in 2 weeks when daughter back from [facility] MTDD
[2020-12-08] MEDS: ceFAZolin SOD 1 GM in D5W MINI-BAG PLUS 50 ML IV SCH ×2 (17:33→18:57)
[2020-12-08] MEDS: QUEtiapine FUMARATE 25 MG TAB PO SCH (21:20)
[2020-12-08] MEDS: MIRTAZAPINE 15 MG TAB PO SCH (21:20)
[2020-12-08] MEDS: ATORVASTATIN 20 MG TAB PO SCH (21:20)
[2020-12-09] MEDS: ceFAZolin SOD 1 GM in D5W MINI-BAG PLUS 50 ML IV SCH ×6 (01:59→18:55)
[2020-12-09] MEDS: SODIUM CHLORIDE 0.9% INJ 10 ML SYR IV PRN ×5 (02:00→23:13)
[2020-12-09] MEDS: SODIUM CHLORIDE 0.9% INJ 10 ML SYR IV SCH ×2 (05:56→18:07)
[2020-12-09] MEDS: TORSEMIDE 20 MG TAB PO SCH ×2 (05:56→18:06)
[2020-12-09] MEDS: LEVOTHYROXINE 100MCG TABLET (0.1MG) PO SCH (05:56)
[2020-12-09 05:57] VITALS: BP 121/70
[2020-12-09 06:20] LABS: HEMATOCRIT 29.9 % (36.0-47.0); HEMOGLOBIN 9.5 g/dl (12.0-15.5); MEAN CORPUSCULAR HEMOGLOBIN 32.3 pg (27.0-33.0); MEAN CORPUSCULAR HGB CONC 31.8 g/dl (32.0-36.5); MEAN CORPUSCULAR VOLUME 101.7 fl (80.0-96.0); PLATELET COUNT, AUTOMATED 82 10^3/uL (150-450); RED BLOOD COUNT 2.94 10^6/uL (4.00-5.40); WHITE BLOOD COUNT 5.1 10^3/uL (4.0-10.0)
[2020-12-09 06:52] LABS: ALT/SGPT < 6 U/L (12-78); BILIRUBIN,TOTAL 0.5 MG/DL (0.2-1.0); BLOOD UREA NITROGEN 26 MG/DL (7-18); CALCIUM LEVEL 7.9 MG/DL (8.8-10.2); CARBON DIOXIDE LEVEL 40 MEQ/L (21-32); CHLORIDE LEVEL 98 MEQ/L (98-107); CREATININE FOR GFR 1.21 MG/DL (0.55-1.30); GLOMERULAR FILTRATION RATE 44.9 (>32); GLUCOSE, FASTING 80 MG/DL (70-100); MAGNESIUM LEVEL 2.4 MG/DL (1.8-2.4); POTASSIUM SERUM 3.8 MEQ/L (3.5-5.1); SODIUM LEVEL 139 MEQ/L (136-145); TOTAL PROTEIN 5.6 GM/DL (6.4-8.2)
[2020-12-09] MEDS: ULTRACET TAB PO SCH ×2 (08:21→21:34)
[2020-12-09] MEDS: METOPROLOL TART 12.5 MG PER 1/2 TAB PO SCH ×2 (08:21→21:00)
[2020-12-09] MEDS: ASPIRIN 81 MG CHEW TABLET PO SCH (08:22)
[2020-12-09] MEDS: SERTRALINE HCL 50 MG TAB PO SCH (08:22)
[2020-12-09] MEDS: FOLIC ACID 1 MG TAB PO SCH (08:22)
[2020-12-09] MEDS: DOCUSATE SODIUM 100MG CAPSULE PO SCH ×2 (08:22→21:32)
[2020-12-09] MEDS: IRON POLYSAC (NIFEREX) 150 MG CAP PO SCH ×2 (08:22→21:33)
[2020-12-09] MEDS: APIXABAN 2.5 MG TAB (ELIQUIS) PO SCH ×2 (08:23→21:32)
[2020-12-09] MEDS: CALCIUM/VITAMIN D 500 MG TAB PO SCH (08:23)
[2020-12-09] MEDS: IPRATROPIUM 0.5MG/ALBUTEROL 2.5MG INH SOL UD 3ML (DUONEB) NEB PRN ×2 (08:31→21:42)
--- NOTE | 2020-12-09 09:40 | REP ---
INDICATION: cough COMPARISON: 12/02/2020. TECHNIQUE: PA/Lateral FINDINGS: Lungs: Clear, no infiltrate. Heart: There is mild cardiomegaly. Mediastinum: There is mild calcification and tortuosity of the thoracic aorta. Pleural angles: Unremarkable.. Bones and soft tissues: There are degenerative changes of the spine with mild loss of height of a midthoracic vertebral body unchanged since prior studies. Multiple sternal wires and mediastinal clips are present as well as a prosthetic heart valve. There is a left pacemaker. There is a right arm PICC line with the tip in the superior vena cava. IMPRESSION: No acute pulmonary disease. Mild cardiomegaly. <Electronically signed by Miky East > 12/09/20 0927
[2020-12-09] MEDS: DOXYCYCLINE HYCLATE 100 MG in D5W MINI-BAG PLUS 100 ML IV SCH ×2 (11:29→23:13)
[2020-12-09 12:47] LABS: RSV AMPLIFICATION NEGATIVE (NEGATIVE)
[2020-12-09 14:00] VITALS: BP 119/0
[2020-12-09] MEDS: BENZONATATE 100MG CAPSULE PO PRN ×2 (15:16→23:13)
--- NOTE | 2020-12-09 16:36 | IPN ---
PROGRESS NOTE DATE: 12/09/2020 SUBJECTIVE: Earlene is seen on [facility]. She is having increasing cough for the last several days, quite rhonchorous. On exam, there is some increase in lower extremity edema. Her oxygen saturation was 82% last night on room air, 94% on 1 liter. PHYSICAL EXAMINATION: VITAL SIGNS: Blood pressure 120/70, 96% oxygen saturation. GENERAL APPEARANCE: She is resting comfortably. LUNGS: Her lungs are rhonchorous. HEART: Regular rhythm. ABDOMEN: Soft, nontender. EXTREMITIES: 1+ peripheral edema. LABORATORY DATA: Electrolytes unremarkable. BUN 26, creatinine 1.2. White count 5, hemoglobin 9.5, platelets 82.
[2020-12-09] MEDS: ATORVASTATIN 20 MG TAB PO SCH (21:32)
[2020-12-09] MEDS: QUEtiapine FUMARATE 25 MG TAB PO SCH (21:33)
[2020-12-09] MEDS: MIRTAZAPINE 15 MG TAB PO SCH (21:33)
[2020-12-09] MEDS: guaiFENesin ER 600 MG TAB PO SCH (23:13)
[2020-12-09] MEDS: MONTELUKAST 10 MG TAB PO SCH (23:13)
[2020-12-09 23:35] VITALS: BP 94/58
[2020-12-09] MEDS ORDERED: POTASSIUM CHLORIDE 10MEQ SR TABLET PO ONE (23:45)
[2020-12-10] MEDS ORDERED: DIGOXIN 0.125 MG TAB PO ONE (00:20)
[2020-12-10 00:25] LABS: ABG BASE EXCESS 12.2 (-2.0-2.0); ABG HCO3 36.1 MEQ/L (22.0-26.0); ABG O2 SATURATION 88.9 % (95.0-99.0); ABG PARTIAL PRESSURE CO2 44.2 mmHg (35.0-45.0); ABG PARTIAL PRESSURE O2 51.7 mmHg (75.0-100.0); ABG STANDARD HCO3 35.7 MEQ/L (22.0-26.0); ABG TOTAL CO2 37.5 MEQ/L (23.0-31.0)
[2020-12-10] MEDS: SODIUM CHLORIDE 0.9% INJ 10 ML SYR IV PRN ×4 (00:32→06:33)
[2020-12-10] MEDS: ceFAZolin SOD 1 GM in D5W MINI-BAG PLUS 50 ML IV SCH ×6 (01:03→18:13)
[2020-12-10 01:43] VITALS: BP 102/50
[2020-12-10] MEDS: ONDANSETRON 4MG/2ML VIAL IV PRN (02:26)
[2020-12-10 06:30] VITALS: BP 116/62
[2020-12-10] MEDS: LEVOTHYROXINE 100MCG TABLET (0.1MG) PO SCH (06:32)
[2020-12-10] MEDS: SODIUM CHLORIDE 0.9% INJ 10 ML SYR IV SCH ×2 (06:32→18:13)
[2020-12-10] MEDS: TORSEMIDE 20 MG TAB PO SCH (06:53)
[2020-12-10 07:01] LABS: BASO % 0.2 % (0.0-1.0); EOS % 0.2 % (0.0-3.0); HEMATOCRIT 29.6 % (36.0-47.0); HEMOGLOBIN 9.5 g/dl (12.0-15.5); LYMPH # 0.8 10^3/uL (1.5-5.0); LYMPH % 13.6 % (24.0-44.0); MEAN CORPUSCULAR HGB CONC 32.1 g/dl (32.0-36.5); MEAN CORPUSCULAR VOLUME 102.8 fl (80.0-96.0); MONO # 0.7 10^3/uL (0.0-0.8); MONO % 11.6 % (2.0-8.0); NEUTROPHILS # 4.5 10^3/uL (1.5-8.5); NEUTROPHILS % 73.7 % (36.0-66.0); RED BLOOD COUNT 2.88 10^6/uL (4.00-5.40); WHITE BLOOD COUNT 6.1 10^3/uL (4.0-10.0)
[2020-12-10 07:02] LABS: PLATELET COUNT, AUTOMATED 81 10^3/uL (150-450)
[2020-12-10 07:32] LABS: ALBUMIN 2.1 GM/DL (3.2-5.2); ALT/SGPT < 6 U/L (12-78); BILIRUBIN,TOTAL 0.5 MG/DL (0.2-1.0); BLOOD UREA NITROGEN 23 MG/DL (7-18); CALCIUM LEVEL 8.1 MG/DL (8.8-10.2); CARBON DIOXIDE LEVEL 37 MEQ/L (21-32); CHLORIDE LEVEL 96 MEQ/L (98-107); GLOMERULAR FILTRATION RATE 41.3 (>32); GLUCOSE, FASTING 82 MG/DL (70-100); POTASSIUM SERUM 4.7 MEQ/L (3.5-5.1); SODIUM LEVEL 138 MEQ/L (136-145); TOTAL PROTEIN 5.6 GM/DL (6.4-8.2)
[2020-12-10 07:33] LABS: MAGNESIUM LEVEL 2.3 MG/DL (1.8-2.4)
[2020-12-10] MEDS: ASPIRIN 81 MG CHEW TABLET PO SCH (10:22)
[2020-12-10] MEDS: SERTRALINE HCL 50 MG TAB PO SCH (10:22)
[2020-12-10] MEDS: DOCUSATE SODIUM 100MG CAPSULE PO SCH ×2 (10:22→22:35)
[2020-12-10] MEDS: IRON POLYSAC (NIFEREX) 150 MG CAP PO SCH ×2 (10:22→22:35)
[2020-12-10] MEDS: FOLIC ACID 1 MG TAB PO SCH (10:23)
[2020-12-10] MEDS: guaiFENesin ER 600 MG TAB PO SCH ×2 (10:23→22:35)
[2020-12-10] MEDS: APIXABAN 2.5 MG TAB (ELIQUIS) PO SCH ×2 (10:23→22:35)
[2020-12-10] MEDS: CALCIUM/VITAMIN D 500 MG TAB PO SCH (10:23)
[2020-12-10] MEDS: ULTRACET TAB PO SCH ×2 (10:26→22:39)
[2020-12-10] MEDS: METOPROLOL TART 12.5 MG PER 1/2 TAB PO SCH ×2 (10:31→22:38)
--- NOTE | 2020-12-10 10:58 | REP ---
INDICATION: interval check, rhonchi/coarseness COMPARISON: 12/09/2020. TECHNIQUE: PA/Lateral FINDINGS: Lungs: Clear, no infiltrate. Heart: There is mild cardiomegaly. Mediastinum: There is mild calcification and tortuosity of the thoracic aorta. Pleural angles: Unremarkable.. Bones and soft tissues: There are diffuse degenerative changes of the spine with a mild stable compression deformity of a midthoracic vertebral body. Multiple sternal wires and mediastinal clips are present as well as a left-sided pacemaker. A right arm PICC line is again noted. IMPRESSION: Stable exam. No evidence of acute infiltrate. <Electronically signed by Miky East > 12/10/20 1051
[2020-12-10] MEDS: DOXYCYCLINE HYCLATE 100 MG in D5W MINI-BAG PLUS 100 ML IV SCH (12:32)
[2020-12-10] MEDS ORDERED: LR 1,000 ML IV SCH (13:40)
[2020-12-10 14:00] VITALS: BP 84/58
--- NOTE | 2020-12-10 14:33 | IPN ---
PROGRESS NOTE DATE: 12/10/2020 SUBJECTIVE: Earlene's chest x-ray really did not show much. No evidence of acute infiltrate. She did act like she was having some volume overload and we augmented her diuretic therapy yesterday. The lungs are clearer. They are having a problem with her Wound-Vac. She has urinary incontinence. The Wound-Vac will not adhere to the area so we are going to ask the Wound Center to get more involved in her care. She is still coughing quite a bit and feels more short of breath than her baseline but better than yesterday. OBJECTIVE: VITAL SIGNS: Blood pressure is 116/62, pulse is 118, 95% O2 saturation. GENERAL APPEARANCE: She is lying in bed in no distress. NECK: I do not see any JVD. LUNGS: Rhonchi and wheezes but it sounds better than yesterday. HEART: Regular rate and rhythm. ABDOMEN: Soft and nontender. EXTREMITIES: There is 1+ peripheral edema, it is decreased from yesterday. LABORATORY DATA: White count is 6.1, hemoglobin is 9.5, platelets are 81, sodium is 138, potassium is 4.7, BUN is 23, creatinine is 1.3. Glucose is 82. IMPRESSION: 1. 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 He is on Ancef until 12/31/2020. 2. Volume overload/congestive heart failure with preserved ejection fraction. I augmented her oral diuretics yesterday. She seems to be responding to this. Blood pressure is coming down a bit and creatinine is slowly rising so I anticipate she will probably resume her prior diuretic regimen tomorrow. Labs have been ordered. Ejection fraction was normal on echocardiogram from 11/20 at 50-55%. 3. Sacral decubitus, Wound-Vac is not adhering. I will defer to [facility] where to proceed from here. The nursing staff will contact Dr. Wiley. 4. Hypothyroidism, continue dose of levothyroxine. 5. Hypertension, blood pressure is a little lower since we have been diuresing her. She is not hypotensive. 6. Atrial fibrillation. She is on Eliquis. Her rate is controlled. 7. Presumed bronchitis. I added doxycycline to her regimen yesterday. Her cough is less, I think that is primarily from treating her heart failure although she did have quite a mucousy cough and seems to be better. At this point, I will stop the intravenous doxycycline and put her on some oral doxycycline. If her exam continues to improve this could probably be discontinued in a few days. I returned the patient to acute level of care today.
[2020-12-10] MEDS: DOXYCYCLINE HYCLATE 100MG TABLET PO SCH (17:27)
[2020-12-10 22:00] VITALS: BP 120/65
[2020-12-10] MEDS: MIRTAZAPINE 15 MG TAB PO SCH (22:35)
[2020-12-10] MEDS: ATORVASTATIN 20 MG TAB PO SCH (22:35)
[2020-12-10] MEDS: BENZONATATE 100MG CAPSULE PO PRN (22:36)
[2020-12-10] MEDS: MONTELUKAST 10 MG TAB PO SCH (22:36)
[2020-12-10] MEDS: QUEtiapine FUMARATE 25 MG TAB PO SCH (22:36)
[2020-12-11] MEDS: SODIUM CHLORIDE 0.9% INJ 10 ML SYR IV PRN ×4 (01:38→05:31)
[2020-12-11] MEDS: ceFAZolin SOD 1 GM in D5W MINI-BAG PLUS 50 ML IV SCH ×6 (02:49→17:51)
[2020-12-11] MEDS: LEVOTHYROXINE 100MCG TABLET (0.1MG) PO SCH (05:30)
[2020-12-11] MEDS: DOXYCYCLINE HYCLATE 100MG TABLET PO SCH ×2 (05:30→17:51)
[2020-12-11] MEDS: SODIUM CHLORIDE 0.9% INJ 10 ML SYR IV SCH ×2 (05:31→17:52)
[2020-12-11 05:56] LABS: HEMATOCRIT 29.8 % (36.0-47.0); HEMOGLOBIN 9.3 g/dl (12.0-15.5); MEAN CORPUSCULAR HEMOGLOBIN 31.8 pg (27.0-33.0); MEAN CORPUSCULAR HGB CONC 31.2 g/dl (32.0-36.5); MEAN CORPUSCULAR VOLUME 102.1 fl (80.0-96.0); RED BLOOD COUNT 2.92 10^6/uL (4.00-5.40); WHITE BLOOD COUNT 4.3 10^3/uL (4.0-10.0)
[2020-12-11 05:58] LABS: PLATELET COUNT, AUTOMATED 78 10^3/uL (150-450)
[2020-12-11 06:00] VITALS: BP 101/58
[2020-12-11 06:25] LABS: CREATININE FOR GFR 1.21 MG/DL (0.55-1.30); GLOMERULAR FILTRATION RATE 44.9 (>32); POTASSIUM SERUM 4.2 MEQ/L (3.5-5.1)
[2020-12-11] MEDS: SERTRALINE HCL 50 MG TAB PO SCH (08:54)
[2020-12-11] MEDS: IRON POLYSAC (NIFEREX) 150 MG CAP PO SCH ×2 (08:54→20:20)
[2020-12-11] MEDS: FOLIC ACID 1 MG TAB PO SCH (08:54)
[2020-12-11] MEDS: CALCIUM/VITAMIN D 500 MG TAB PO SCH (08:54)
[2020-12-11] MEDS: ASPIRIN 81 MG CHEW TABLET PO SCH (08:54)
[2020-12-11] MEDS: APIXABAN 2.5 MG TAB (ELIQUIS) PO SCH ×2 (08:54→20:21)
[2020-12-11] MEDS: guaiFENesin ER 600 MG TAB PO SCH ×2 (08:54→20:21)
[2020-12-11] MEDS: DOCUSATE SODIUM 100MG CAPSULE PO SCH ×2 (08:54→20:19)
[2020-12-11] MEDS: METOPROLOL TART 12.5 MG PER 1/2 TAB PO SCH ×2 (08:55→20:29)
[2020-12-11] MEDS: ULTRACET TAB PO SCH ×2 (08:59→20:20)
[2020-12-11] MEDS: ONDANSETRON 4MG/2ML VIAL IV PRN (10:43)
[2020-12-11 14:00] VITALS: BP 104/60
--- NOTE | 2020-12-11 17:55 | ECGEPIP ---
[facility] Test Date: 2020-12-10 Pat Name: ALEJANDRO MORE Department: Room: [place] [address] Gender: Female Dyed Yarn Operator: radha : 1935 Requested By: LANDON Mercedes Order Number: [id number] Reading MD: Ho Haddad Measurements Intervals [place] Rate: 135 P: WA: QRS: -28 QRSD: 90 T: 147 QT: 318 QTc: 477 Interpretive Statements Atrial fibrillation with rapid ventricular response with occasional ventricular- paced complexes and with premature ventricular or aberrantly conducted complexes ST & T wave abnormality, consider lateral ischemia Compared to 08/06/20 HR is faster and PVC's are new Electronically Signed on 12-11-2020 17:55:42 EDT by Ho Haddad
--- NOTE | 2020-12-11 18:28 | IPNPDOC ---
Date Seen The patient was seen on 12/11/20. Progress Note SUBJECTIVE: Patient seen and examined at bedside this electromyelographic flaccid in presence of bilateral chest pain palpitations. OBJECTIVE PHYSICAL EXAMINATION: VITAL SIGNS: please see below General: NAD, comfortable HEENT: PERRLA, EOMI, sclerae clear Neck: supple, normal ROM, no JVD Respiratory: lungs CTAB, no wheeze, no rales, no crackles CVS: RRR, normal S1, S2, no murmurs Abdo: soft, no masses, no hepatosplenomegaly, BS+, no rebound tenderness Extremities: Trace edema improved from yesterday MSK: no joint deformities, normal ROM Neuro: no focal neuro deficits, moving all 4 extremities, CN2-12 intact. Strength 5/5 in all 4 extremities. No nystagmus. Psych: calm, cooperative, AAO x 3 LABORATORY DATA, IMAGING STUDIES, MICROBIOLOGY: Please see below. 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 Abraham. Declined BLAYNE. C/w Ancef until 12/31/20. #Volume overload/HFpEF: resume torsemide 20 mg BID. Appears euvolemic. CXR shows no edema. 2D echo. 11/20 at 50-55%. # Sacral decubitus: wound vac not adhering appropriately. Changed now daily. Was assessed by eliana Hernandez to place erickson cath. Order placed. I examined wound with RN. Improving. Area of maceration on R glute. #Hypothyroidism, continue dose of levothyroxine. # Hypertension: BP low since diuresis. Monitor. Asymptomatic. resume torsemide with parameters. # Atrial fibrillation: c/w metoprolol. C/w eliquis,. # Presumed bronchitis: rales improved with diuresis. C/w doxycycline. Stable CXR portable on 12/12/20. VS, I&O, 24H, Fishbone Vital Signs/I&O Vital Signs Date Time Temp Pulse Resp B/P (MAP) Pulse Ox O2 Delivery O2 Flow Rate FiO2 12/11/20 14:00 97.5 81 18 104/60 (75) 92 Room Air 12/10/20 22:15 1.0 I&O- Last 24 Hours up to 6 AM 12/11/20 06:00 Intake Total 670 ml Output Total 450 ml Balance 220 ml Laboratory Data 24H LABS Laboratory Tests 2 12/11/20 05:39: Nucleated Red Blood Cells % (auto) 0.0, Anion Gap 2L, Glomerular Filtration Rate 44.9, Calcium Level 8.0L, RG-[id number]-Type Natriuretic Peptide 1079H CBC/BMP Laboratory Tests 12/11/20 05:39 Microbiology Microbiology 12/05/20 Stool Occult Blood (VICKEY) - Final, Complete CINTHYA HAN MD Dec 11, 2020 18:28
[2020-12-11 18:45] VITALS: BP 96/54
[2020-12-11] MEDS: ATORVASTATIN 20 MG TAB PO SCH (20:19)
[2020-12-11] MEDS: QUEtiapine FUMARATE 25 MG TAB PO SCH (20:21)
[2020-12-11] MEDS: MONTELUKAST 10 MG TAB PO SCH (20:21)
[2020-12-11] MEDS: MIRTAZAPINE 15 MG TAB PO SCH (20:21)
[2020-12-11] MEDS ORDERED: METOPROLOL TART 25 MG TABLET PO ONE (20:25)
[2020-12-11] MEDS ORDERED: PILL CUTTER 1 EACH XX PRN (20:30)
[2020-12-11] MEDS ORDERED: METOPROLOL TART 12.5 MG PER 1/2 TAB PO ONE (20:40)
[2020-12-11 22:00] VITALS: BP 103/57
[2020-12-12] MEDS: ceFAZolin SOD 1 GM in D5W MINI-BAG PLUS 50 ML IV SCH ×6 (01:54→17:10)
[2020-12-12] MEDS: SODIUM CHLORIDE 0.9% INJ 10 ML SYR IV SCH ×2 (05:25→17:11)
[2020-12-12] MEDS: DOXYCYCLINE HYCLATE 100MG TABLET PO SCH ×2 (05:29→17:10)
[2020-12-12] MEDS: LEVOTHYROXINE 100MCG TABLET (0.1MG) PO SCH (05:30)
[2020-12-12 05:42] LABS: HEMATOCRIT 27.7 % (36.0-47.0); MEAN CORPUSCULAR HEMOGLOBIN 33.5 pg (27.0-33.0); MEAN CORPUSCULAR HGB CONC 32.5 g/dl (32.0-36.5); RED BLOOD COUNT 2.69 10^6/uL (4.00-5.40); WHITE BLOOD COUNT 6.2 10^3/uL (4.0-10.0)
[2020-12-12 05:43] LABS: PLATELET COUNT, AUTOMATED 77 10^3/uL (150-450)
[2020-12-12 06:00] VITALS: BP 116/59
[2020-12-12 06:11] LABS: CALCIUM LEVEL 7.9 MG/DL (8.8-10.2); CREATININE FOR GFR 1.24 MG/DL (0.55-1.30); GLOMERULAR FILTRATION RATE 43.7 (>32); POTASSIUM SERUM 3.9 MEQ/L (3.5-5.1)
[2020-12-12] MEDS: ULTRACET TAB PO SCH ×2 (09:00→20:41)
[2020-12-12] MEDS: METOPROLOL TART 12.5 MG PER 1/2 TAB PO SCH ×2 (09:00→20:41)
[2020-12-12] MEDS: FOLIC ACID 1 MG TAB PO SCH (10:01)
[2020-12-12] MEDS: APIXABAN 2.5 MG TAB (ELIQUIS) PO SCH ×2 (10:01→20:40)
[2020-12-12] MEDS: CALCIUM/VITAMIN D 500 MG TAB PO SCH (10:01)
[2020-12-12] MEDS: ASPIRIN 81 MG CHEW TABLET PO SCH (10:01)
[2020-12-12] MEDS: IRON POLYSAC (NIFEREX) 150 MG CAP PO SCH ×2 (10:02→20:40)
[2020-12-12] MEDS: SERTRALINE HCL 50 MG TAB PO SCH (10:02)
[2020-12-12] MEDS: guaiFENesin ER 600 MG TAB PO SCH ×2 (10:02→20:40)
[2020-12-12] MEDS: DOCUSATE SODIUM 100MG CAPSULE PO SCH ×2 (10:02→20:35)
--- NOTE | 2020-12-12 11:02 | REP ---
INDICATION: crackles. COMPARISON: 12/10/2020. TECHNIQUE: Single portable AP view of the chest was performed. FINDINGS: Stable fibrotic changes are noted. There is cardiomegaly again visualized. There is calcification and tortuosity of the thoracic aorta. The mediastinal silhouette is unchanged. Multiple sternal wires mediastinal clips are present, as well as a left pacemaker and right PICC line. IMPRESSION: No acute pulmonary disease.Stable exam. <Electronically signed by Miky East > 12/12/20 [id number]
[2020-12-12 14:00] VITALS: BP 133/60
--- NOTE | 2020-12-12 14:45 | IPNPDOC ---
Date Seen The patient was seen on 12/12/20. Progress Note SUBJECTIVE: Patient seen examined at bedside. States having no chest pain or shortness of breath or palpitations. No acute events overnight. OBJECTIVE PHYSICAL EXAMINATION: VITAL SIGNS: please see below General: NAD, comfortable HEENT: PERRLA, EOMI, sclerae clear Neck: supple, normal ROM, no JVD Respiratory: lungs CTAB, no wheeze, no rales, no crackles CVS: RRR, normal S1, S2, no murmurs Abdo: soft, no masses, no hepatosplenomegaly, BS+, no rebound tenderness Extremities: Trace edema improved from yesterday MSK: no joint deformities, normal ROM. Examined sacral decub, opening of the wo und approximately 2 cm in diameter packed, no surrounding cellulitis. Area of maceration of the right glute secondary to leaking of wound VAC due to urinary incontinence Neuro: no focal neuro deficits, moving all 4 extremities, CN2-12 intact. Strength 5/5 in all 4 extremities. No nystagmus. Psych: calm, cooperative, AAO x 3 LABORATORY DATA, IMAGING STUDIES, MICROBIOLOGY: Please see below. DVT prophylaxis ordered?: Eliquis 2.5 mg BID. 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 Abraham. Declined BLAYNE. C/w Ancef until 12/31/20. #Volume overload/HFpEF: resume torsemide 20 mg BID. Appears euvolemic. CXR shows no edema. 2D echo. 11/20 at 50-55%. # Sacral decubitus: wound vac not adhering appropriately. Changed now daily. Was assessed by Dr. Wiley, eliana to place erickson cath. Order placed. I examined wound with RN. Improving. Area of maceration on R glute. #Hypothyroidism, continue dose of levothyroxine. # Hypertension: BP low since diuresis. Monitor. Asymptomatic. resume torsemide with parameters. # Atrial fibrillation: c/w metoprolol. C/w eliquis,. # Presumed bronchitis: rales improved with diuresis. C/w doxycycline. Stable CXR portable on 12/12/20. VS, I&O, 24H, Fishbone Vital Signs/I&O Vital Signs Date Time Temp Pulse Resp B/P (MAP) Pulse Ox O2 Delivery O2 Flow Rate FiO2 12/12/20 14:00 97.6 82 18 133/60 (84) 92 Room Air 12/10/20 22:15 1.0 I&O- Last 24 Hours up to 6 AM 12/12/20 06:00 Intake Total 920 ml Output Total 675 ml Balance 245 ml Laboratory Data 24H LABS Laboratory Tests 2 12/12/20 05:18: Nucleated Red Blood Cells % (auto) 0.0, Immature Platelet Fraction 12.9H, Anion Gap 5L, Glomerular Filtration Rate 43.7, Calcium Level 7.9L CBC/BMP Laboratory Tests 12/12/20 05:18 Microbiology Microbiology 12/05/20 Stool Occult Blood (VICKEY) - Final, Complete CINTHYA HAN MD Dec 12, 2020 14:45
--- NOTE | 2020-12-12 15:47 | CR ---
ADVANCED WOUND CARE CONSULTATION VIA TELEMEDICINE DATE: 12/12/2020 REQUESTING PHYSICIAN: CINTHYA HAN MD REASON FOR CONSULTATION: Sacral pressure injury. HISTORY OF PRESENT ILLNESS: This is an 85-year-old frail female admitted for pneumonia, found to have a sacral Stage IV pressure injury which has been treated with local wound debridement and more recently with Wound-Vac therapy. The patient is on Ancef and Doxycycline treating her pneumonia which has been improving significantly. The sacral wound measures 2.0 cm x 3.0 cm with a wound depth of 1.5 cm. There is undermining of 3.5 cm from the 12 o'clock to the 5 o'clock position. Wound-Vac therapy has utilized white foam for the undermining and black foam for the central portion run at 100 mmHg continuously to be changed on a Thursday, Thursday and Thursday basis. According to the nurses, the patient is having problems with urinary incontinence and this has required changing the Wound-Vac more frequently which is problematic at this is causing local skin irritation to the buttocks area. One recommendation is a short course utilizing a Avila catheter. In terms of the undermining, this is problematic and is usually dealt with in our wound clinic by surgically excising it under local anesthesia. If the patient is able to be transferred to the [facility] we can arrange to have her seen in our wound clinic regarding this. WOUND RECOMMENDATIONS: Avila catheter short-term. Finish antibiotics for pneumonia. No indication for antibiotic therapy regarding the patient's wound. Evaluate the right buttocks area where the Wound-Vac drape has been placed and change position of the black foam connector. This should be placed on the left buttocks area. If this persists, the Wound-Vac should then be discontinued as this can create a secondary wound. Wound care telemedicine provides full assessment of the wound without the benefit of physical examination. It can assist with establishing a diagnosis and etiology. This allows for initial treatment plan. As wounds often change it may be necessary to modify the original care. Our recommendation is periodic wound reassessment to monitor treatment. Failure to comply may result in nonhealing of the wound, possible complications and/or a poor outcome. The recommendations given will serve as treatment options. As I will not be following this patient this care plan will require the attending physician to give and signed the orders. Upon discharge outpatient follow-up can be scheduled at our wound care center [facility]
[2020-12-12] MEDS: TORSEMIDE 20 MG TAB PO SCH (17:10)
[2020-12-12] MEDS: MIRTAZAPINE 15 MG TAB PO SCH (20:40)
[2020-12-12] MEDS: ATORVASTATIN 20 MG TAB PO SCH (20:40)
[2020-12-12] MEDS: QUEtiapine FUMARATE 25 MG TAB PO SCH (20:40)
[2020-12-12 22:00] VITALS: BP 112/54
[2020-12-13] MEDS: ceFAZolin SOD 1 GM in D5W MINI-BAG PLUS 50 ML IV SCH ×6 (02:27→19:04)
[2020-12-13] MEDS: SODIUM CHLORIDE 0.9% INJ 10 ML SYR IV SCH ×2 (05:48→17:05)
[2020-12-13] MEDS: LEVOTHYROXINE 100MCG TABLET (0.1MG) PO SCH (05:58)
[2020-12-13] MEDS: DOXYCYCLINE HYCLATE 100MG TABLET PO SCH ×2 (05:58→17:06)
[2020-12-13 06:00] VITALS: BP 108/57
[2020-12-13] MEDS: ALENDRONATE 35MG TABLET PO SCH (06:00)
[2020-12-13 06:12] LABS: HEMATOCRIT 27.6 % (36.0-47.0); MEAN CORPUSCULAR HEMOGLOBIN 32.8 pg (27.0-33.0); MEAN CORPUSCULAR HGB CONC 32.6 g/dl (32.0-36.5); MEAN CORPUSCULAR VOLUME 100.7 fl (80.0-96.0); RED BLOOD COUNT 2.74 10^6/uL (4.00-5.40); WHITE BLOOD COUNT 4.4 10^3/uL (4.0-10.0)
[2020-12-13 06:22] LABS: PLATELET COUNT, AUTOMATED 75 10^3/uL (150-450)
[2020-12-13 06:32] LABS: CALCIUM LEVEL 7.9 MG/DL (8.8-10.2); CREATININE FOR GFR 1.12 MG/DL (0.55-1.30); GLOMERULAR FILTRATION RATE 49.1 (>32); POTASSIUM SERUM 3.7 MEQ/L (3.5-5.1)
[2020-12-13] MEDS: METOPROLOL TART 12.5 MG PER 1/2 TAB PO SCH ×2 (09:00→21:00)
[2020-12-13] MEDS: ASPIRIN 81 MG CHEW TABLET PO SCH (09:36)
[2020-12-13] MEDS: SERTRALINE HCL 50 MG TAB PO SCH (09:38)
[2020-12-13] MEDS: guaiFENesin ER 600 MG TAB PO SCH (09:38)
[2020-12-13] MEDS: IRON POLYSAC (NIFEREX) 150 MG CAP PO SCH ×2 (09:38→22:39)
[2020-12-13] MEDS: CALCIUM/VITAMIN D 500 MG TAB PO SCH (09:38)
[2020-12-13] MEDS: TORSEMIDE 20 MG TAB PO SCH ×2 (09:38→17:06)
[2020-12-13] MEDS: ULTRACET TAB PO SCH ×2 (09:39→22:40)
[2020-12-13] MEDS: FOLIC ACID 1 MG TAB PO SCH (09:39)
[2020-12-13] MEDS: DOCUSATE SODIUM 100MG CAPSULE PO SCH ×2 (09:39→22:42)
[2020-12-13] MEDS: APIXABAN 2.5 MG TAB (ELIQUIS) PO SCH ×2 (09:39→22:38)
[2020-12-13] MEDS: SODIUM CHLORIDE 0.9% INJ 10 ML SYR IV PRN (11:38)
--- NOTE | 2020-12-13 13:14 | IPNPDOC ---
Date Seen The patient was seen on 12/13/20. Progress Note SUBJECTIVE: Patient seen examined at bedside. States having no chest pain or shortness of breath or palpitations. No acute events overnight. Patient is visibly upset about having to stay in the hospital for such a long period of time. Family is currently away would not be able to take her home until December 31. OBJECTIVE PHYSICAL EXAMINATION: VITAL SIGNS: please see below General: NAD, comfortable HEENT: PERRLA, EOMI, sclerae clear Neck: supple, normal ROM, no JVD Respiratory: lungs CTAB, no wheeze, no rales, no crackles CVS: RRR, normal S1, S2, no murmurs Abdo: soft, no masses, no hepatosplenomegaly, BS+, no rebound tenderness Extremities: Trace edema improved from yesterday MSK: no joint deformities, normal ROM. Examined sacral decub, opening of the wound approximately 2 cm in diameter packed, no surrounding cellulitis. Area of maceration of the right glute secondary to leaking of wound VAC due to urinary incontinence Neuro: no focal neuro deficits, moving all 4 extremities, CN2-12 intact. Strength 5/5 in all 4 extremities. No nystagmus. Psych: calm, cooperative, AAO x 3 LABORATORY DATA, IMAGING STUDIES, MICROBIOLOGY: Please see below. DVT prophylaxis ordered?: Eliquis 2.5 mg BID. 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 Abraham. Declined BLAYNE. C/w Ancef until 12/31/20. #Volume overload/HFpEF: resume torsemide 20 mg BID. Appears euvolemic. CXR shows no edema. 2D echo. 11/20 at 50-55%. # Sacral decubitus: wound vac not adhering appropriately. Changed now daily. Was assessed by Dr. Wiley, recs to place erickson cath. Order placed. I examined wound with RN. Improving. Area of maceration on R glute. Erickson cath placed. Will monitor to see extend of adherence of wound vac. Hopefully erickson cath improves leakage and resultant maceration. #Hypothyroidism, continue dose of levothyroxine. # Hypertension: BP low since diuresis. Monitor. Asymptomatic. resume torsemide with parameters. # Atrial fibrillation: c/w metoprolol. C/w eliquis,. # Presumed bronchitis: rales improved with diuresis. C/w doxycycline. Stable CXR portable on 12/12/20. VS, I&O, 24H, Fishbone Vital Signs/I&O Vital Signs Date Time Temp Pulse Resp B/P (MAP) Pulse Ox O2 Delivery O2 Flow Rate FiO2 12/13/20 09:39 18 12/13/20 09:00 87 107/57 12/13/20 06:00 97.3 93 Room Air 12/10/20 22:15 1.0 I&O- Last 24 Hours up to 6 AM 12/13/20 06:00 Intake Total 560 ml Output Total 500 ml Balance 60 ml Laboratory Data 24H LABS Laboratory Tests 2 12/13/20 05:48: Nucleated Red Blood Cells % (auto) 0.0, Immature Platelet Fraction 12.6H, Anion Gap 5L, Glomerular Filtration Rate 49.1, Calcium Level 7.9L CBC/BMP Laboratory Tests 12/13/20 05:48 Microbiology Microbiology 12/05/20 Stool Occult Blood (VICKEY) - Final, Complete CINTHYA HAN MD Dec 13, 2020 13:14
[2020-12-13 14:00] VITALS: BP 108/50
[2020-12-13 22:00] VITALS: BP 110/57
[2020-12-13] MEDS: ATORVASTATIN 20 MG TAB PO SCH (22:39)
[2020-12-13] MEDS: QUEtiapine FUMARATE 25 MG TAB PO SCH (22:39)
[2020-12-13] MEDS: MIRTAZAPINE 15 MG TAB PO SCH (22:40)
[2020-12-14] VITALS (24 sets, daily range): BP systolic 89–141; BP diastolic 49–70
[2020-12-14] MEDS: ceFAZolin SOD 1 GM in D5W MINI-BAG PLUS 50 ML IV SCH ×6 (02:43→18:28)
[2020-12-14 05:29] LABS: HEMATOCRIT 27.2 % (36.0-47.0); HEMOGLOBIN 8.9 g/dl (12.0-15.5); MEAN CORPUSCULAR HEMOGLOBIN 33.2 pg (27.0-33.0); MEAN CORPUSCULAR HGB CONC 32.7 g/dl (32.0-36.5); MEAN CORPUSCULAR VOLUME 101.5 fl (80.0-96.0); RED BLOOD COUNT 2.68 10^6/uL (4.00-5.40); WHITE BLOOD COUNT 4.1 10^3/uL (4.0-10.0)
[2020-12-14 05:33] LABS: PLATELET COUNT, AUTOMATED 76 10^3/uL (150-450)
[2020-12-14 05:58] LABS: CALCIUM LEVEL 7.8 MG/DL (8.8-10.2); CREATININE FOR GFR 1.17 MG/DL (0.55-1.30); GLOMERULAR FILTRATION RATE 46.7 (>32); POTASSIUM SERUM 3.6 MEQ/L (3.5-5.1)
[2020-12-14] MEDS: SODIUM CHLORIDE 0.9% INJ 10 ML SYR IV SCH ×2 (06:19→18:28)
[2020-12-14] MEDS: LEVOTHYROXINE 100MCG TABLET (0.1MG) PO SCH (06:19)
[2020-12-14] MEDS: DOXYCYCLINE HYCLATE 100MG TABLET PO SCH (06:20)
[2020-12-14] MEDS: ONDANSETRON 4MG/2ML VIAL IV PRN (08:06)
[2020-12-14] MEDS ORDERED: DIGOXIN INJ 0.5 MG/2 ML AMP (J1160) IV STA (08:50)
[2020-12-14] MEDS ORDERED: SODIUM CHLORIDE 0.9% 1000ML IV ONE (09:00)
[2020-12-14] MEDS: METOPROLOL TART 12.5 MG PER 1/2 TAB PO SCH ×2 (09:00→20:25)
[2020-12-14 09:22] LABS: C REACTIVE PROTEIN QUANTITATIV 3.29 MG/DL (0.00-0.30)
[2020-12-14] MEDS: IRON POLYSAC (NIFEREX) 150 MG CAP PO SCH ×2 (09:49→20:22)
[2020-12-14] MEDS: ULTRACET TAB PO SCH ×2 (09:49→20:24)
[2020-12-14] MEDS: CALCIUM/VITAMIN D 500 MG TAB PO SCH (09:49)
[2020-12-14] MEDS: ASPIRIN 81 MG CHEW TABLET PO SCH (09:49)
[2020-12-14] MEDS: SERTRALINE HCL 50 MG TAB PO SCH (09:50)
[2020-12-14] MEDS: FOLIC ACID 1 MG TAB PO SCH (09:50)
[2020-12-14] MEDS: APIXABAN 2.5 MG TAB (ELIQUIS) PO SCH ×2 (09:50→20:23)
[2020-12-14] MEDS: DOCUSATE SODIUM 100MG CAPSULE PO SCH ×2 (09:50→20:21)
[2020-12-14] MEDS: TORSEMIDE 20 MG TAB PO SCH ×2 (10:01→17:00)
[2020-12-14 10:55] LABS: FREE T4 1.26 NG/DL (0.76-1.46); NT-PRO BNP 993 PG/ML (<450); TROPONIN I < 0.02 NG/ML (< 0.10)
--- NOTE | 2020-12-14 14:08 | IPN ---
PROGRESS NOTE DATE: 12/14/2020 Earlene was transferred to the intensive care unit (ICU) today due to hypotension and atrial fibrillation. She is back in sinus rhythm after one dose of digoxin. She denies any constipation, chest pain, shortness of breath. No fever or chills. She states she has a mild cough, but it has markedly improved. LABORATORY DATA: White count 4.1, hemoglobin 8.9, hematocrit 27.2, platelets 76. Sodium 139, potassium 3.6, bicarbonate 35, BUN 25, creatinine 1.7, glucose 78, calcium 7.8, CRP 3.29. BNP 993. TSH 16.5 free T4 of 1.296. Blood cultures repeated today are pending. On December 10, chest x-ray had no acute disease. Procalcitonin was 0.18. Because of a persistent cough patient was given doxycycline. December 12 chest x-ray had no acute disease. Consultation by Dr. Wiley was done on December 12 for concern about the wound vacuum-assisted closure (VAC) and sacral decubitus, that there was some leakage from the bladder into the wound VAC. A short-term Avila was recommended. PHYSICAL EXAMINATION: Temperature is 98.4, pulse 80, sinus rhythm, respirations 20, blood pressure 89/55, oxygen saturation 97% on room air. HEART: Normal S1, S2, regular, sinus rhythm. No murmurs appreciated. LUNGS: Crackles at the bases. No wheezes or rhonchi. ABDOMEN: Soft, nontender, nondistended. EXTREMITIES: Trace edema bilaterally. Decubitus ulcer, 3 x 2 cm, with tunneling at 11 o'clock to about 3 cm. No drainage. IMPRESSION: Methicillin-sensitive Staphylococcus aureus (MSSA) bacteremia with presumptive endocarditis, on intravenous (IV) cefazolin until December 31. The daughter will be coming back home on that date as well. 2. Volume overload with HFpEF Patient doing fairly well. Patient does not have bronchitis. Doxycycline will be discontinued. 3. Atrial fibrillation. Patient transferred to the ICU, back in sinus rhythm, doing well after IV digoxin PLAN: Continue IV cefazolin until December 31. Discontinue doxycycline. MTDD
[2020-12-14] MEDS ORDERED: DIGOXIN INJ 0.5 MG/2 ML AMP (J1160) IV ONE ×2 (14:50→22:00)
--- NOTE | 2020-12-14 15:28 | IPNPDOC ---
Date Seen The patient was seen on 12/14/20. Progress Note SUBJECTIVE: Patient seen examined at bedside. States having no chest pain or shortness of breath or palpitations. No acute events overnight. Patient is visibly upset about having to stay in the hospital for such a long period of time. Family is currently away would not be able to take her home until December 31. OBJECTIVE PHYSICAL EXAMINATION: VITAL SIGNS: please see below General: NAD, comfortable HEENT: PERRLA, EOMI, sclerae clear Neck: supple, normal ROM, no JVD Respiratory: lungs CTAB, no wheeze, no rales, no crackles CVS: RRR, normal S1, S2, no murmurs Abdo: soft, no masses, no hepatosplenomegaly, BS+, no rebound tenderness Extremities: Trace edema improved from yesterday MSK: no joint deformities, normal ROM. Examined sacral decub, opening of the wound approximately 2 cm in diameter packed, no surrounding cellulitis. Area of maceration of the right glute secondary to leaking of wound VAC due to urinary incontinence Neuro: no focal neuro deficits, moving all 4 extremities, CN2-12 intact. Strength 5/5 in all 4 extremities. No nystagmus. Psych: calm, cooperative, AAO x 3 LABORATORY DATA, IMAGING STUDIES, MICROBIOLOGY: Please see below. DVT prophylaxis ordered?: Eliquis 2.5 mg BID. ASSESSMENT AND PLAN: #Afib with RVR: patient hypotensive SBP 65 mmHg. HR 160 bpm. Transfered to ICU. 0.25 mg IV digoxin given. Cardiology consult placed with Dr. Bird. Given 250 cc NS bolus. Holding metoprolol due to hypotension. Will c/w loading digoxin 0.25 mg IV q6h. Patient now in NSR. SBP holdin gabove 120 mmHg. 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 Abraham. Declined BLAYNE. C/w Ancef until 12/31/20. #Volume overload/HFpEF: resume torsemide 20 mg BID. Appears euvolemic. CXR shows no edema. 2D echo. 11/20 at 50-55%. Torsemide held today due to hypotension. # Sacral decubitus: wound vac not adhering appropriately. Changed now daily. Was assessed by Dr. Wiley, recs to place erickson cath. Order placed. I examined wound with RN. Improving. Area of maceration on R glute. Erickson cath placed. Will monitor to see extend of adherence of wound vac. Hopefully erickson cath improves leakage and resultant maceration. #Hypothyroidism, continue dose of levothyroxine. # Hypertension: BP low since diuresis. Monitor. Asymptomatic. resume torsemide with parameters. # Atrial fibrillation: c/w metoprolol. C/w eliquis,. # Presumed bronchitis: rales improved with diuresis. C/w doxycycline. Stable CXR portable on 12/12/20. VS, I&O, 24H, Fishbone Vital Signs/I&O Vital Signs Date Time Temp Pulse Resp B/P (MAP) Pulse Ox O2 Delivery O2 Flow Rate FiO2 12/14/20 12:00 97.3 80 18 133/62 (85) 96 Room Air 12/10/20 22:15 1.0 I&O- Last 24 Hours up to 6 AM 12/14/20 05:59 Intake Total 470 ml Balance 470 ml Laboratory Data 24H LABS Laboratory Tests 2 12/14/20 05:09: Nucleated Red Blood Cells % (auto) 0.0, Anion Gap 4L, Glomerular Filtration Rate 46.7, Calcium Level 7.8L, C-Reactive Protein, Quantitative 3.29H 12/14/20 09:53: Lactic Acid Level 2.1*H, Troponin I < 0.02, CA-Xzq-G-Type Natriuretic Peptide 993H, Thyroid Stimulating Hormone (TSH) 16.500H, Free Thyroxine 1.26 12/14/20 14:13: Lactic Acid Followup at 4 Hours 0.7 CBC/BMP Laboratory Tests 12/14/20 05:09 Microbiology Microbiology 12/14/20 Blood Culture, Received Pending 12/14/20 Blood Culture, Received Pending 12/05/20 Stool Occult Blood (VICKEY) - Final, Complete CINTHYA HAN MD Dec 14, 2020 15:28
[2020-12-14] MEDS: ATORVASTATIN 20 MG TAB PO SCH (20:21)
[2020-12-14] MEDS: QUEtiapine FUMARATE 25 MG TAB PO SCH (20:21)
[2020-12-14] MEDS: MIRTAZAPINE 15 MG TAB PO SCH (20:23)
[2020-12-15] VITALS (11 sets, daily range): BP systolic 96–138; BP diastolic 50–65
[2020-12-15] MEDS: ceFAZolin SOD 1 GM in D5W MINI-BAG PLUS 50 ML IV SCH ×6 (01:55→18:20)
[2020-12-15] MEDS: SODIUM CHLORIDE 0.9% INJ 10 ML SYR IV SCH ×2 (05:27→17:41)
[2020-12-15] MEDS: LEVOTHYROXINE 100MCG TABLET (0.1MG) PO SCH (05:28)
[2020-12-15 05:44] LABS: HEMOGLOBIN 8.6 g/dl (12.0-15.5); MEAN CORPUSCULAR HEMOGLOBIN 32.1 pg (27.0-33.0); MEAN CORPUSCULAR HGB CONC 31.9 g/dl (32.0-36.5); MEAN CORPUSCULAR VOLUME 100.7 fl (80.0-96.0); RED BLOOD COUNT 2.68 10^6/uL (4.00-5.40); WHITE BLOOD COUNT 4.9 10^3/uL (4.0-10.0)
[2020-12-15 05:50] LABS: PLATELET COUNT, AUTOMATED 85 10^3/uL (150-450)
[2020-12-15 06:08] LABS: CALCIUM LEVEL 7.7 MG/DL (8.8-10.2); CREATININE FOR GFR 1.18 MG/DL (0.55-1.30); GLOMERULAR FILTRATION RATE 46.2 (>32); POTASSIUM SERUM 4.1 MEQ/L (3.5-5.1)
[2020-12-15] MEDS: METOPROLOL TART 12.5 MG PER 1/2 TAB PO SCH ×2 (08:33→20:22)
[2020-12-15] MEDS ORDERED: DIGOXIN 0.25 MG TAB PO SCH (09:00)
[2020-12-15] MEDS: IRON POLYSAC (NIFEREX) 150 MG CAP PO SCH ×2 (10:00→20:20)
[2020-12-15] MEDS: ASPIRIN 81 MG CHEW TABLET PO SCH (10:01)
[2020-12-15] MEDS: CALCIUM/VITAMIN D 500 MG TAB PO SCH (10:01)
[2020-12-15] MEDS: DOCUSATE SODIUM 100MG CAPSULE PO SCH ×2 (10:02→20:20)
[2020-12-15] MEDS: ULTRACET TAB PO SCH ×2 (10:02→20:21)
[2020-12-15] MEDS: TORSEMIDE 20 MG TAB PO SCH (10:03)
[2020-12-15] MEDS: FOLIC ACID 1 MG TAB PO SCH (10:04)
[2020-12-15] MEDS: SERTRALINE HCL 50 MG TAB PO SCH (10:04)
[2020-12-15] MEDS: APIXABAN 2.5 MG TAB (ELIQUIS) PO SCH ×2 (10:04→20:20)
--- NOTE | 2020-12-15 10:45 | IPNPDOC ---
Date Seen The patient was seen on 12/15/20. Progress Note SUBJECTIVE: Patient seen examined at bedside. Patient doing well overnight in the ICU. Blood pressures have stabilized. Presently 108/52. Heart rate has been well controlled and is in sinus rhythm. She converted from atrial fibrillation yesterday and is now in a paced rhythm. Patient is asymptomatic denies any chest pain palpitation shortness of breath nausea vomiting or diarrhea. Discussed with Dr. Bird recommendations are noted below. Patient will be downgraded today to [facility] telemetry floor. OBJECTIVE PHYSICAL EXAMINATION: VITAL SIGNS: please see below General: NAD, comfortable HEENT: PERRLA, EOMI, sclerae clear Neck: supple, normal ROM, no JVD Respiratory: lungs CTAB, no wheeze, no rales, no crackles CVS: RRR, normal S1, S2, no murmurs Abdo: soft, no masses, no hepatosplenomegaly, BS+, no rebound tenderness Extremities: Trace edema bilateral Neuro: no focal neuro deficits, moving all 4 extremities, CN2-12 intact. Strength 5/5 in all 4 extremities. No nystagmus. Psych: calm, cooperative, AAO x 3 LABORATORY DATA, IMAGING STUDIES, MICROBIOLOGY: Please see below. DVT prophylaxis ordered?: Eliquis 2.5 mg BID. ASSESSMENT AND PLAN: #Afib with RVR: patient had an episode of RVR to 160s, with hypotension to SBP 60 mmHg. Transfered to ICU. Was given loading dose of digoxin 0.25 mg IV q6h x 3 doses, and 0.25 mg PO today. Cardiology consult was placed. D/w Dr. Bird. Hy potension likely 2/2 afib with RVR. BP stable. 2D echo showed normal valvular function. Dr. Bird recommending c/w digoxin 0.125 mcg daily, metoprolol 12.5 mg BID (with parameters). Will resume torsemide at reduced dose of 20 mg daily PO. 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 Abraham. Declined BLAYNE. C/w Ancef until 12/31/20. #Volume overload/HFpEF: Appears euvolemic. CXR shows no edema. 2D echo. 11/20 at 50-55%. Torsemide was held x 2 hrs due to low BP. Resume at 20 mg PO daily. # Sacral decubitus: wound vac not adhering appropriately. Changed now daily. Was assessed by Dr. Wiley, recs to place erickson cath. Order placed. I examined wound with RN. Improving. Area of maceration on R glute. Erickson cath placed. Will monitor to see extend of adherence of wound vac. Hopefully erickson cath improves leakage and resultant maceration. #Hypothyroidism, continue dose of levothyroxine. # Hypertension: BP low since diuresis. Monitor. Asymptomatic. resume torsemide with parameters. # Atrial fibrillation: c/w metoprolol. C/w eliquis,. # Presumed bronchitis: rales improved with diuresis. C/w doxycycline. Stable CXR portable on 12/12/20. VS, I&O, 24H, Fishbone Vital Signs/I&O Vital Signs Date Time Temp Pulse Resp B/P (MAP) Pulse Ox O2 Delivery O2 Flow Rate FiO2 12/15/20 10:02 17 12/15/20 10:01 84 12/15/20 08:33 108/52 12/15/20 06:00 92 Room Air 12/15/20 04:00 98.0 12/10/20 22:15 1.0 I&O- Last 24 Hours up to 6 AM 12/15/20 05:59 Intake Total 480 ml Output Total 1605 ml Balance -1125 ml Laboratory Data 24H LABS Laboratory Tests 2 12/14/20 14:13: Lactic Acid Followup at 4 Hours 0.7 12/15/20 05:25: Nucleated Red Blood Cells % (auto) 0.0, Immature Platelet Fraction 9.8H, Anion Gap 5L, Glomerular Filtration Rate 46.2, Calcium Level 7.7L CBC/BMP Laboratory Tests 12/15/20 05:25 Microbiology Microbiology 12/14/20 Blood Culture - Preliminary, Resulted No growth after 24 hours . All specim... 12/14/20 Blood Culture - Preliminary, Resulted No growth after 24 hours . All specim... 12/05/20 Stool Occult Blood (VICKEY) - Final, Complete CINTHYA HAN MD Dec 15, 2020 10:45
--- NOTE | 2020-12-15 12:26 | IPN ---
CARDIOLOGY PROGRESS NOTE DATE: 11/17/2020 SUBJECTIVE: Mrs. Johnston is seen in the intensive care unit (ICU) and she tells me she is feeling better. She was brought in here yesterday after she developed atrial fibrillation with rapid ventricular response. Because she was also marginally hypotensive, she was not receiving her beta blockers. Yesterday, after she was loaded with digoxin, she eventually converted to sinus rhythm and remains in atrially paced rhythm. She does not have any acute complaints today. OBJECTIVE: VITAL SIGNS: Blood pressure 108/52, heart rate mostly 90 atrially paced, afebrile, saturation 93% on room air. Her weight was recorded at 61.8 kg. GENERAL: She is alert, oriented and appropriate. She appears chronically but not acutely ill. No apparent distress. HEENT: Jugular venous pressure (JVP) is not high. LUNGS: Clear on the left. On the right base, I appreciate inspiratory crackles. Air movement is reasonably good. HEART EXAM: Reveals regular rhythm. There is a murmur over the aortic valve, about 1-2/6 intensity. I do not appreciate any diastolic murmur, gallop or rub. ABDOMEN: Soft and nontender. EXTREMITIES: There is no peripheral edema. NEUROLOGICAL: She is weak, but otherwise intact. LABORATORY DATA: Basic metabolic panel is normal. Calcium is 7.7. Troponin less than 0.02. Pro-BNP 993. TSH is 16. CBC: WBC 4.9, hemoglobin 8.3, hematocrit 27, platelet count 85,000. ASSESSMENT AND PLAN: Mrs. Johnston is an 85-year-old female who has a recent extensive history that includes an aortic valve replacement, bypass surgery and pacemaker placement. She came in because her postoperative course was complicated by development of decubital ulcers and she developed septicemia with Staphylococcus aureus. She responded to antibiotic treatment and refused transesophageal echocardiogram. In her condition, I think it is probably reasonable, as she is a very unlikely candidate for redo open heart surgery. She has been on an antibiotic and has been progressively improving. The atrial fibrillation episode probably is not surprising. She is currently on digoxin 0.125 mg daily. I recommend to obtain a level after several days in order to make sure that the level does not become toxic, because her renal function is mildly impaired. She is also on metoprolol, a tiny dose, with holding parameters for hypotension, which is certainly appropriate. She has been anticoagulated with apixaban, which should be continued, provided her platelet count does not drop any further. She is quite firm that she does not want any aggressive measures at this point, and I think that is reasonable. Hopefully, with current treatment, there will be progressive improvement. I was informed by nursing staff that her decubital wound on her sacrum is improving. Please contact me if any further assistance is desired. TR[place]ON
[2020-12-15] MEDS: MOM 30ML SUSPENSION UDC PO PRN (13:30)
[2020-12-15] MEDS ORDERED: GLYCERIN ADULT SUPP PR ONE (17:00)
[2020-12-15] MEDS: MIRALAX *UNIT DOSE* 17GM PACKET PO SCH (17:41)
[2020-12-15] MEDS: QUEtiapine FUMARATE 25 MG TAB PO SCH (20:21)
[2020-12-15] MEDS: ATORVASTATIN 20 MG TAB PO SCH (20:21)
[2020-12-15] MEDS: MIRTAZAPINE 15 MG TAB PO SCH (20:22)
[2020-12-16] VITALS: BP 136/63
[2020-12-16] MEDS: ceFAZolin SOD 1 GM in D5W MINI-BAG PLUS 50 ML IV SCH ×6 (01:31→18:40)
[2020-12-16 04:00] VITALS: BP 109/59
[2020-12-16] MEDS: LEVOTHYROXINE 100MCG TABLET (0.1MG) PO SCH (05:08)
[2020-12-16 05:27] LABS: HEMATOCRIT 27.1 % (36.0-47.0); HEMOGLOBIN 8.6 g/dl (12.0-15.5); MEAN CORPUSCULAR HEMOGLOBIN 32.3 pg (27.0-33.0); MEAN CORPUSCULAR HGB CONC 31.7 g/dl (32.0-36.5); MEAN CORPUSCULAR VOLUME 101.9 fl (80.0-96.0); RED BLOOD COUNT 2.66 10^6/uL (4.00-5.40); WHITE BLOOD COUNT 4.7 10^3/uL (4.0-10.0)
[2020-12-16 05:28] LABS: PLATELET COUNT, AUTOMATED 76 10^3/uL (150-450)
[2020-12-16] MEDS: SODIUM CHLORIDE 0.9% INJ 10 ML SYR IV SCH ×2 (06:10→18:41)
[2020-12-16 06:29] LABS: CALCIUM LEVEL 7.9 MG/DL (8.8-10.2); CREATININE FOR GFR 1.08 MG/DL (0.55-1.30); GLOMERULAR FILTRATION RATE 51.2 (>32); POTASSIUM SERUM 3.8 MEQ/L (3.5-5.1)
[2020-12-16 08:33] VITALS: BP 96/54
[2020-12-16 08:43] LABS: DIGOXIN LEVEL 2.1 NG/ML (0.5-2.0)
[2020-12-16] MEDS: TORSEMIDE 20 MG TAB PO SCH (08:55)
[2020-12-16] MEDS: METOPROLOL TART 12.5 MG PER 1/2 TAB PO SCH ×2 (08:56→20:18)
[2020-12-16] MEDS: DIGOXIN 0.125 MG TAB PO SCH (09:00)
[2020-12-16] MEDS: CALCIUM/VITAMIN D 500 MG TAB PO SCH (09:38)
[2020-12-16] MEDS: MIRALAX *UNIT DOSE* 17GM PACKET PO SCH (09:38)
[2020-12-16] MEDS: ULTRACET TAB PO SCH ×2 (09:38→20:15)
[2020-12-16] MEDS: IRON POLYSAC (NIFEREX) 150 MG CAP PO SCH ×2 (09:38→20:14)
[2020-12-16] MEDS: ASPIRIN 81 MG CHEW TABLET PO SCH (09:38)
[2020-12-16] MEDS: SERTRALINE HCL 50 MG TAB PO SCH (09:39)
[2020-12-16] MEDS: DOCUSATE SODIUM 100MG CAPSULE PO SCH ×2 (09:39→20:13)
[2020-12-16] MEDS: APIXABAN 2.5 MG TAB (ELIQUIS) PO SCH ×2 (09:39→20:14)
[2020-12-16] MEDS: FOLIC ACID 1 MG TAB PO SCH (09:40)
[2020-12-16 15:25] VITALS: BP 103/71
--- NOTE | 2020-12-16 15:46 | IPNPDOC ---
Date Seen The patient was seen on 12/16/20. Progress Note SUBJECTIVE: Patient seen examined at bedside. Patient doing well overnight in the ICU. HR has been well controlled with digoxin. No episodes of RVR. Was c/o constipation, had large BM today. No CP, no SOB, no n/v/d. OBJECTIVE PHYSICAL EXAMINATION: VITAL SIGNS: please see below General: NAD, comfortable HEENT: PERRLA, EOMI, sclerae clear Neck: supple, normal ROM, no JVD Respiratory: lungs CTAB, no wheeze, no rales, no crackles CVS: RRR, normal S1, S2, no murmurs Abdo: soft, no masses, no hepatosplenomegaly, BS+, no rebound tenderness Extremities: Trace edema bilateral Neuro: no focal neuro deficits, moving all 4 extremities, CN2-12 intact. Strength 5/5 in all 4 extremities. No nystagmus. Psych: calm, cooperative, AAO x 3 LABORATORY DATA, IMAGING STUDIES, MICROBIOLOGY: Please see below. DVT prophylaxis ordered?: Eliquis 2.5 mg BID. ASSESSMENT AND PLAN: #Afib with RVR: patient had an episode of RVR to 160s, with hypotension to SBP 60 mmHg. Transfered to ICU. Was given loading dose of digoxin 0.25 mg IV q6h x 3 doses, and 0.25 mg PO today. Cardiology consult was placed. D/w Dr. Bird. Hypotension likely 2/2 afib with RVR. BP stable. 2D echo showed normal valvular function. Dr. Bird recommending c/w digoxin 0.125 mcg daily, metoprolol 12.5 mg BID (with parameters). Will resume torsemide at reduced dose of 20 mg daily PO. #Elevated Digoxin level: Digoxin level 2.1. Will hold dose today given renal disease. Will check level tomorrow. If normalizes, will c/w 0.125 mg daily. #constipation: no v/n. had large BM today. 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 Abraham. Declined BLAYNE. C/w Ancef until 12/31/20. #Volume overload/HFpEF: Appears euvolemic. CXR shows no edema. 2D echo 11/20 at 50-55%. Torsemide was held x 2 hrs due to low BP. Resume at 20 mg PO daily. # Sacral decubitus: wound vac not adhering appropriately. Changed now daily. Was assessed by eliana Hernandez to place erickson cath. Improving area of maceration on R glute. Erickson cath placed. Will monitor to see extent of adherence of wound vac. Hopefully erickson cath improves leakage and resultant maceration. #Hypothyroidism, continue dose of levothyroxine. # Hypertension: BP low since diuresis. Monitor. Asymptomatic. resume torsemide with parameters. # Atrial fibrillation: c/w metoprolol. C/w eliquis,. # Presumed bronchitis: rales improved with diuresis. C/w doxycycline. Stable CXR portable on 12/12/20. VS, I&O, 24H, Fishbone Vital Signs/I&O Vital Signs Date Time Temp Pulse Resp B/P (MAP) Pulse Ox O2 Delivery O2 Flow Rate FiO2 12/16/20 09:38 17 12/16/20 08:56 83 96/54 12/16/20 08:33 98.0 96 Room Air 12/10/20 22:15 1.0 I&O- Last 24 Hours up to 6 AM 12/16/20 06:00 Intake Total 850 ml Output Total 930 ml Balance -80 ml Laboratory Data 24H LABS Laboratory Tests 2 12/16/20 05:11: Nucleated Red Blood Cells % (auto) 0.0, Anion Gap 3L, Glomerular Filtration Rate 51.2, Calcium Level 7.9L, Digoxin Level 2.1H CBC/BMP Laboratory Tests 12/16/20 05:11 Microbiology Microbiology 12/14/20 Blood Culture - Preliminary, Resulted No Growth after 48 hours. All Specime... 12/14/20 Blood Culture - Preliminary, Resulted No Growth after 48 hours. All Specime... CINTHYA HAN MD Dec 16, 2020 15:46
--- NOTE | 2020-12-16 18:34 | REP ---
INDICATION: r/o distension. COMPARISON: Abdominal series, 02/26/2015. TECHNIQUE: Supine image of the abdomen was obtained. FINDINGS: There is a large amount of stool in the rectal vault. There is no abnormal bowel dilatation or free intraperitoneal air. There are vascular calcifications noted. There is a dual lead pacemaker device and a valve prosthesis noted in the heart. There is multilevel degenerative disc disease of the lower thoracic and lumbar spine. IMPRESSION: 1. No evidence of abnormal bowel dilatation or free intraperitoneal air. 2. Possible fecal impaction. <Electronically signed by Kevin Goetz > 12/16/20 1910
[2020-12-16 20:00] VITALS: BP 112/54
[2020-12-16] MEDS: ATORVASTATIN 20 MG TAB PO SCH (20:13)
[2020-12-16] MEDS: QUEtiapine FUMARATE 25 MG TAB PO SCH (20:14)
[2020-12-16] MEDS: MIRTAZAPINE 15 MG TAB PO SCH (20:14)
[2020-12-16] MEDS: MOM 30ML SUSPENSION UDC PO PRN (20:15)
[2020-12-16 22:00] VITALS: BP 89/53
[2020-12-17] MEDS: ceFAZolin SOD 1 GM in D5W MINI-BAG PLUS 50 ML IV SCH ×6 (02:22→18:45)
[2020-12-17 04:00] VITALS: BP 109/59
[2020-12-17] MEDS: LEVOTHYROXINE 100MCG TABLET (0.1MG) PO SCH (06:16)
[2020-12-17] MEDS: SODIUM CHLORIDE 0.9% INJ 10 ML SYR IV SCH ×3 (06:17→19:59)
[2020-12-17 08:00] VITALS: BP 108/55
[2020-12-17] MEDS: SODIUM CHLORIDE 0.9% INJ 10 ML SYR IV PRN ×2 (09:31→12:01)
[2020-12-17 10:02] LABS: HEMATOCRIT 26.2 % (36.0-47.0); HEMOGLOBIN 8.6 g/dl (12.0-15.5); LYMPH # 0.7 10^3/uL (1.5-5.0); LYMPH % 12.3 % (24.0-44.0); MEAN CORPUSCULAR HEMOGLOBIN 34.1 pg (27.0-33.0); MEAN CORPUSCULAR HGB CONC 32.8 g/dl (32.0-36.5); MONO # 0.7 10^3/uL (0.0-0.8); MONO % 11.9 % (2.0-8.0); NEUTROPHILS # 4.1 10^3/uL (1.5-8.5); NEUTROPHILS % 75.4 % (36.0-66.0); RED BLOOD COUNT 2.52 10^6/uL (4.00-5.40); WHITE BLOOD COUNT 5.5 10^3/uL (4.0-10.0)
[2020-12-17 10:04] LABS: PLATELET COUNT, AUTOMATED 78 10^3/uL (150-450)
[2020-12-17] MEDS: ASPIRIN 81 MG CHEW TABLET PO SCH (10:09)
[2020-12-17] MEDS: FOLIC ACID 1 MG TAB PO SCH (10:10)
[2020-12-17] MEDS: DOCUSATE SODIUM 100MG CAPSULE PO SCH ×2 (10:10→22:06)
[2020-12-17] MEDS: CALCIUM/VITAMIN D 500 MG TAB PO SCH (10:11)
[2020-12-17] MEDS: APIXABAN 2.5 MG TAB (ELIQUIS) PO SCH ×2 (10:11→22:06)
[2020-12-17] MEDS: MIRALAX *UNIT DOSE* 17GM PACKET PO SCH (10:13)
[2020-12-17] MEDS: TORSEMIDE 20 MG TAB PO SCH (10:26)
[2020-12-17] MEDS: METOPROLOL TART 12.5 MG PER 1/2 TAB PO SCH ×2 (10:26→22:07)
[2020-12-17] MEDS: SERTRALINE HCL 50 MG TAB PO SCH (10:27)
[2020-12-17 10:34] LABS: CREATININE FOR GFR 0.98 MG/DL (0.55-1.30); DIGOXIN LEVEL 1.6 NG/ML (0.5-2.0); GLOMERULAR FILTRATION RATE 57.3 (>32); MAGNESIUM LEVEL 2.8 MG/DL (1.8-2.4)
[2020-12-17] MEDS: DIGOXIN 0.125 MG TAB PO SCH (10:50)
[2020-12-17] MEDS: ULTRACET TAB PO SCH ×2 (11:00→22:13)
[2020-12-17] MEDS: IRON POLYSAC (NIFEREX) 150 MG CAP PO SCH ×2 (12:32→22:07)
--- NOTE | 2020-12-17 12:40 | IPNPDOC ---
Date Seen The patient was seen on 12/17/20. Progress Note SUBJECTIVE: PatienSUBJECTIVE: Patient seen examined at bedside. Night. Heart rate has been well controlled with digoxin. She denies any chest pain shortness palpitations. OBJECTIVE PHYSICAL EXAMINATION: VITAL SIGNS: please see below General: NAD, comfortable HEENT: PERRLA, EOMI, sclerae clear Neck: supple, normal ROM, no JVD Respiratory: lungs CTAB, no wheeze, no rales, no crackles CVS: RRR, normal S1, S2, no murmurs Abdo: soft, no masses, no hepatosplenomegaly, BS+, no rebound tenderness Extremities: Trace edema bilateral Neuro: no focal neuro deficits, moving all 4 extremities, CN2-12 intact. Strength 5/5 in all 4 extremities. No nystagmus. Psych: calm, cooperative, AAO x 3 LABORATORY DATA, IMAGING STUDIES, MICROBIOLOGY: Please see below. DVT prophylaxis ordered?: Eliquis 2.5 mg BID. ASSESSMENT AND PLAN: #Afib with RVR: patient had an episode of RVR to 160s, with hypotension to SBP 60 mmHg. Transfered to ICU. Was given loading dose of digoxin 0.25 mg IV q6h x 3 doses. Cardiology consult was placed. D/w Dr. Bird. Hypotension likely 2/2 afib with RVR. BP stable. 2D echo showed normal valvular function. Dr. Bird recommending c/w digoxin 0.125 mcg daily, metoprolol 12.5 mg BID (with parameters). Resume torsemide at reduced dose of 20 mg daily PO. #Elevated Digoxin level: Repeat digoxin level 1.6. Resume digoxin at 0.125 mg daily #constipation: no v/n. KUB showing fecal impaction. No evidence of abnormal dilatation. 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 Abraham. Declined BLAYNE. C/w Ancef until 12/31/20. #Volume overload/HFpEF: Appears euvolemic. CXR shows no edema. 2D echo 11/20 at 50-55%. Torsemide was held x 2 hrs due to low BP. Resumed at 20 mg PO daily. # Sacral decubitus: wound vac not adhering appropriately. Changed now daily. Was assessed by eliana Hernandez to place erickson cath. Improving area of maceration on R glute. Erickson cath placed. Will monitor to see extent of adherence of wound vac. Hopefully erickson cath improves leakage and resultant maceration. #Hypothyroidism, continue dose of levothyroxine. # Hypertension: BP low since diuresis. Monitor. Asymptomatic. resume torsemide with parameters. # Atrial fibrillation: c/w metoprolol. C/w eliquis,. # Presumed bronchitis: rales improved with diuresis. C/w doxycycline. Stable CXR portable on 12/12/20. VS, I&O, 24H, Fishbone Vital Signs/I&O Vital Signs Date Time Temp Pulse Resp B/P (MAP) Pulse Ox O2 Delivery O2 Flow Rate FiO2 12/17/20 11:00 16 12/17/20 10:50 78 12/17/20 10:26 110/58 12/17/20 08:00 97.4 96 12/17/20 04:00 Room Air I&O- Last 24 Hours up to 6 AM 12/17/20 06:00 Intake Total 220 ml Output Total 500 ml Balance -280 ml Laboratory Data 24H LABS Laboratory Tests 2 12/17/20 09:22: Immature Granulocyte % (Auto) 0.4, Neutrophils (%) (Auto) 75.4H, Lymphocytes (%) (Auto) 12.3L, Monocytes (%) (Auto) 11.9H, Eosinophils (%) (Auto) 0.0, Basophils (%) (Auto) 0.0, Neutrophils # (Auto) 4.1, Lymphocytes # (Auto) 0.7L, Monocytes # (Auto) 0.7, Eosinophils # (Auto) 0.0, Basophils # (Auto) 0.0, Nucleated Red Blood Cells % (auto) 0.0, Immature Platelet Fraction 11.6H, Anion Gap 4L, Glomerular Filtration Rate 57.3, Calcium Level 8.0L, Magnesium Level 2.8H, Digoxin Level 1.6 CBC/BMP Laboratory Tests 12/17/20 09:22 Microbiology Microbiology 12/14/20 Blood Culture - Preliminary, Resulted No Growth after 72 hours. All specime... 12/14/20 Blood Culture - Preliminary, Resulted No Growth after 72 hours. All specime... CINTHYA HAN MD Dec 17, 2020 12:40
[2020-12-17 16:00] VITALS: BP 135/66
[2020-12-17 22:00] VITALS: BP 112/71
[2020-12-17] MEDS: QUEtiapine FUMARATE 25 MG TAB PO SCH (22:07)
[2020-12-17] MEDS: MIRTAZAPINE 15 MG TAB PO SCH (22:07)
[2020-12-17] MEDS: ATORVASTATIN 20 MG TAB PO SCH (22:07)
[2020-12-18] MEDS: SODIUM CHLORIDE 0.9% INJ 10 ML SYR IV PRN ×5 (01:19→10:59)
[2020-12-18] MEDS: ceFAZolin SOD 1 GM in D5W MINI-BAG PLUS 50 ML IV SCH ×6 (01:19→18:06)
[2020-12-18 06:00] VITALS: BP 99/47
[2020-12-18] MEDS: LEVOTHYROXINE 100MCG TABLET (0.1MG) PO SCH (06:05)
[2020-12-18 06:55] LABS: BASO % 0.1 % (0.0-1.0); EOS % 0.1 % (0.0-3.0); HEMATOCRIT 27.2 % (36.0-47.0); LYMPH % 12.3 % (24.0-44.0); MEAN CORPUSCULAR HEMOGLOBIN 33.7 pg (27.0-33.0); MEAN CORPUSCULAR HGB CONC 33.1 g/dl (32.0-36.5); MEAN CORPUSCULAR VOLUME 101.9 fl (80.0-96.0); MONO # 0.8 10^3/uL (0.0-0.8); MONO % 10.2 % (2.0-8.0); NEUTROPHILS % 76.8 % (36.0-66.0); PLATELET COUNT, AUTOMATED 91 10^3/uL (150-450); RED BLOOD COUNT 2.67 10^6/uL (4.00-5.40); WHITE BLOOD COUNT 7.8 10^3/uL (4.0-10.0)
[2020-12-18 07:13] LABS: ALBUMIN 2.1 GM/DL (3.2-5.2); ALT/SGPT < 6 U/L (12-78); BILIRUBIN,TOTAL 0.4 MG/DL (0.2-1.0); BLOOD UREA NITROGEN 24 MG/DL (7-18); CARBON DIOXIDE LEVEL 33 MEQ/L (21-32); CHLORIDE LEVEL 98 MEQ/L (98-107); CREATININE FOR GFR 1.18 MG/DL (0.55-1.30); GLOMERULAR FILTRATION RATE 46.2 (>32); GLUCOSE, FASTING 82 MG/DL (70-100); MAGNESIUM LEVEL 2.8 MG/DL (1.8-2.4); POTASSIUM SERUM 3.9 MEQ/L (3.5-5.1); SODIUM LEVEL 137 MEQ/L (136-145); TOTAL PROTEIN 5.8 GM/DL (6.4-8.2)
[2020-12-18] MEDS: DOCUSATE SODIUM 100MG CAPSULE PO SCH ×2 (07:26→22:09)
[2020-12-18] MEDS: MIRALAX *UNIT DOSE* 17GM PACKET PO SCH (07:27)
[2020-12-18] MEDS: ULTRACET TAB PO SCH ×2 (09:00→22:12)
[2020-12-18] MEDS: ASPIRIN 81 MG CHEW TABLET PO SCH (09:23)
[2020-12-18] MEDS: IRON POLYSAC (NIFEREX) 150 MG CAP PO SCH ×2 (09:23→22:10)
[2020-12-18] MEDS: CALCIUM/VITAMIN D 500 MG TAB PO SCH (09:23)
[2020-12-18] MEDS: TORSEMIDE 20 MG TAB PO SCH (09:24)
[2020-12-18] MEDS: FOLIC ACID 1 MG TAB PO SCH (09:24)
[2020-12-18] MEDS: SERTRALINE HCL 50 MG TAB PO SCH (09:24)
[2020-12-18] MEDS: METOPROLOL TART 12.5 MG PER 1/2 TAB PO SCH ×2 (09:24→22:10)
[2020-12-18] MEDS: DIGOXIN 0.125 MG TAB PO SCH (09:25)
[2020-12-18] MEDS: APIXABAN 2.5 MG TAB (ELIQUIS) PO SCH ×2 (09:25→22:10)
--- NOTE | 2020-12-18 13:01 | IPNPDOC ---
Text Note Date of Service The patient was seen on 12/18/20. NOTE Subjective: Patient is an 85-year-old female with a PMHx of CAD s/p CABG (Completed on October 2020), A. fib, s/p PM, AVR, CHF, HTN, COPD, Gout, Hypothyro idism, Depression, who presented to the ER on 11/16 complaints of right hip pain after she had fallen 4 days prior. Patient was seen and examined at the bedside. Currently patient denies any chest pain, shortness of breath, palpitations, nausea, vomiting, abdominal pain or diarrhea. Objective: Vitals (See below) General: Lying in bed, no acute distress, appears comfortable, awake / alert HEENT: NC, AT CVS: +S1S2 Lungs: Fair air entry b/l, no wheezing, rales or rhonchi Abdomen: Soft, ND, NT Extremities: - Edema, - Calf tenderness Imaging: Hip XR 11/16: Limited by osteopenia and extensive degenerative changes. Cannot exclude nondisplaced fracture involving the pubis or left inferior pubic ramus. Extremity CT 11/16: 1. Decubitus ulceration over the sacrococcygeal region to the right of midline with collections of gas within soft tissues which are confluent with the osseous structures. No definite osseous erosion is noted at this time. There is subcutaneous infiltration confluence extending cephalad into the low right back and pelvis which may reflect cellulitis. 2. Fat filled bilateral inguinal hernias, right greater than left with question of extension from the retroperitoneum. 3. Sigmoid diverticulosis. 4. 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 No fracture. Lumbar CT 11/16: 1. Mild anterior wedge configuration of T12 and L1 and mild superior endplate depression of L2 which are similar to 02/27/2019. 2. Osteopenia. 3. Multilevel degenerative disc changes and facet arthropathy with varying degrees of multilevel spinal and neural foraminal stenosis. 4. No acute fracture or subluxation. Vascular US 11/16: Negative right lower extremity venous duplex exam without evidence of deep venous thrombosis. Abdomen / Pelvis CT 11/16: 1. Bibasilar infiltrates with interstitial coarsening and fibro-atelectatic change. 2. Old granulomatous disease of the spleen and liver. 3. Degenerative changes of the hips, right greater than left and slight anterior wedge configuration of T11 and T12 and superior endplate depression of L2 which appear to be chronic. 4. Cholelithiasis. 5. Minimal hiatal hernia. 6. Colonic diverticulosis without diverticulitis. 7. Fat filled bilateral inguinal collections, right greater than left suggesting inguinal hernias which may be from the retroperitoneum. 8. Decubitus ulcer over the distal sacrum centered to the right. There is subcutaneous infiltration confluence extending cephalad into the low back to the right of midline which may reflect cellulitis. CXR 11/16: 1. Interval sternotomy and left atrial appendage exclusion device since 08/06/2020. There is also interval placement of a pacemaker from the left. 2. Otherwise stable chest with persistent cardiomegaly. ECHO 11/18: 1. Mildly increased left ventricular wall thickness with normal left ventricular size and a low normal global left ventricular systolic function. The estimated left ventricular systolic ejection fraction is 50-55%. 2. Moderately enlarged left atrium. The right atrium also appeared to be enlarged. Normal right ventricle. 3. The atrial septum appeared to be normal without evidence of defect or shunt. 4. Normal aortic root. 5. No pericardial effusion seen. 6. Bioprosthetic valve noted in the aortic valve position. Leaflet excursion appeared to be normal. Moderately calcified mitral annulus with normal anterior mitral valve leaflet motion. Normal tricuspid valve and pulmonic valve. The proximal pulmonary artery branches were not well visualized. 7. The inferior vena cava was not well visualized. Guidance Needle PICC line 11/19: PICC line insertion right basilic vein with the tip ending in the SVC. Chest CT 11/23: 1. Scattered primarily left lower lobe and lingular atelectasis and small consolidations with trace right basilar atelectasis and small bilateral pleural effusions. 2. Cardiomegaly with [id number] pulmonary vascular congestion suggested. 3. Subtle stranding surrounding sternotomy is nonspecific but without discrete drainable collection/abscess. CXR 12/02: 1. Interval placement of a right PICC line with the tip in the area of the superior vena cava. 2. Airspace disease in the midlung zone on the left consistent with atelectasis or pneumonia. 3. Other findings as noted, not significantly changed. Vascular US 12/03: No deep vein thrombosis above the level of the knees bilaterally. There is thrombosis of the left posterior tibial and peroneal veins in the superior left calf. Vascular US 12/05: No evidence of deep venous thrombosis of the Left upper extremity deep vein system. CXR 12/09: No acute pulmonary disease. Mild cardiomegaly. CXR 12/10: Stable exam. No evidence of acute infiltrate. CXR 12/12: No acute pulmonary disease.Stable exam. Abdomen XR 12/16: 1. No evidence of abnormal bowel dilatation or free intraperitoneal air. 2. Possible fecal impaction. Assessment and plan: A. fib; s/p RVR - Clinically patient is asymptomatic - Bioprosthetic AVR - Heart rate remains well controlled - Imaging / ECHO noted above - c/w Digoxin / Metoprolol - c/w full anticoagulation with Eliquis - Cardiology on consultation; appreciate their input s/p Constipation - BM reported - c/w bowel regimen as ordered Methicillin sensitive Staph Aureus bacteremia; with presumed Endocarditis - Blood cultures 11/17: Staphylococcus aureus; Blood cultures since 11/19: have remained negative - Will continue to trend CRP - Patient declined BLAYNE - c/w Cefazolin (End date 12/31/2020) - ID on consultation; appreciate their input HFpEF - Clinically patient appears euvolemic - Imaging noted above - c/w Torsemide 20 daily Sacral decubitus - Wound vac in place - c/w dressing changes as ordered - Dr. Wiley on consultation Hypothyroidism - c/w Levothyroxine HTN - BP well controlled - c/w Metoprolol / Torsemide CAD s/p CABG - c/w Atorvastatin and ASA 81 - c/w Nitroglycerine PRN DLP - c/w Atorvastatin Possible bronchitis - Currently denies any shortness of breath or cough - Saturating well on room air - c/w Inhaled therapy as ordered Mood disorder - c/w Sertraline / Quetiapine DVT prophylaxis - c/w full anticoagulation with Eliquis Disposition: - c/w ALC status - Will remain here until completion of antibiotic therapy on 12/31/2020 VS,Javi, I+O VS, Josébone, I+O Laboratory Tests 12/18/20 06:15 Vital Signs Date Time Temp Pulse Resp B/P (MAP) Pulse Ox O2 Delivery O2 Flow Rate FiO2 12/18/20 09:25 83 12/18/20 09:24 117/53 12/18/20 06:00 97.5 17 95 Room Air I&O- Last 24 Hours up to 6 AM 12/18/20 06:00 Intake Total 950 ml Output Total 1275 ml Balance -325 ml LESTER HARRIS MD Dec 18, 2020 13:01
[2020-12-18 15:42] LABS: ABG BASE EXCESS 6.5 (-2.0-2.0); ABG HCO3 29.3 MEQ/L (22.0-26.0); ABG O2 SATURATION 97.4 % (95.0-99.0); ABG STANDARD HCO3 30.3 MEQ/L (22.0-26.0); ABG TOTAL CO2 30.3 MEQ/L (23.0-31.0); BASO % 0.2 % (0.0-1.0); EOS % 0.2 % (0.0-3.0); HEMATOCRIT 26.8 % (36.0-47.0); HEMOGLOBIN 8.7 g/dl (12.0-15.5); LYMPH # 0.8 10^3/uL (1.5-5.0); LYMPH % 12.7 % (24.0-44.0); MEAN CORPUSCULAR HEMOGLOBIN 32.7 pg (27.0-33.0); MEAN CORPUSCULAR HGB CONC 32.5 g/dl (32.0-36.5); MEAN CORPUSCULAR VOLUME 100.8 fl (80.0-96.0); MONO # 0.7 10^3/uL (0.0-0.8); MONO % 10.7 % (2.0-8.0); NEUTROPHILS # 4.8 10^3/uL (1.5-8.5); NEUTROPHILS % 75.9 % (36.0-66.0); RED BLOOD COUNT 2.66 10^6/uL (4.00-5.40); WHITE BLOOD COUNT 6.3 10^3/uL (4.0-10.0)
[2020-12-18 15:45] LABS: PLATELET COUNT, AUTOMATED 88 10^3/uL (150-450)
[2020-12-18 16:05] LABS: CALCIUM LEVEL 8.5 MG/DL (8.8-10.2); CREATININE FOR GFR 1.13 MG/DL (0.55-1.30); GLOMERULAR FILTRATION RATE 48.6 (>32); MAGNESIUM LEVEL 2.6 MG/DL (1.8-2.4); POTASSIUM SERUM 3.6 MEQ/L (3.5-5.1)
--- NOTE | 2020-12-18 16:39 | REP ---
INDICATION: Confusion. COMPARISON: 06/03/2020 TECHNIQUE: 5 mm contiguous transaxial sections were obtained from the skull base to the cerebral convexities FINDINGS: The ventricles and sulci are unchanged. The deep cerebral white matter is unchanged. Diffuse lucencies are again seen bilaterally status quo. There are no acute extra-axial fluid collections. There is no shift of the midline structures. There is no evidence of an acute intracranial hemorrhagic or non hemorrhagic event. There is a small air-fluid level in the left maxillary sinus. This represents a change. The mastoid air cells are clear. IMPRESSION: 1. Chronic deep white matter ischemic changes stable from the prior exam. There is no evidence of an acute intracranial hemorrhagic or non hemorrhagic event. 2. Left maxillary sinus air-fluid level consistent with sinusitis correlate clinically. <Electronically signed by Rich Taveras > 12/18/20 [id number]
[2020-12-18] MEDS: SODIUM CHLORIDE 0.9% INJ 10 ML SYR IV SCH (17:42)
[2020-12-18] MEDS: ATORVASTATIN 20 MG TAB PO SCH (22:10)
[2020-12-18] MEDS: QUEtiapine FUMARATE 25 MG TAB PO SCH (22:11)
[2020-12-18] MEDS: MIRTAZAPINE 15 MG TAB PO SCH (22:11)
[2020-12-19] MEDS ORDERED: ceFAZolin 1GM VIAL (J0690 PER 500MG) As Ordered ONE (02:26)
[2020-12-19] MEDS: ceFAZolin SOD 1 GM in D5W MINI-BAG PLUS 50 ML IV SCH ×6 (02:30→18:53)
[2020-12-19] MEDS: SODIUM CHLORIDE 0.9% INJ 10 ML SYR IV PRN ×4 (03:23→21:58)
[2020-12-19] MEDS: LEVOTHYROXINE 100MCG TABLET (0.1MG) PO SCH (05:42)
[2020-12-19] MEDS: SODIUM CHLORIDE 0.9% INJ 10 ML SYR IV SCH ×2 (05:42→17:54)
[2020-12-19 06:00] VITALS: BP 111/66
[2020-12-19 06:12] LABS: EOS % 0.2 % (0.0-3.0); HEMOGLOBIN 8.1 g/dl (12.0-15.5); LYMPH # 0.6 10^3/uL (1.5-5.0); LYMPH % 14.1 % (24.0-44.0); MEAN CORPUSCULAR HEMOGLOBIN 33.1 pg (27.0-33.0); MEAN CORPUSCULAR HGB CONC 32.4 g/dl (32.0-36.5); MONO # 0.6 10^3/uL (0.0-0.8); MONO % 13.4 % (2.0-8.0); NEUTROPHILS # 3.1 10^3/uL (1.5-8.5); NEUTROPHILS % 72.1 % (36.0-66.0); RED BLOOD COUNT 2.45 10^6/uL (4.00-5.40); WHITE BLOOD COUNT 4.3 10^3/uL (4.0-10.0)
[2020-12-19 06:19] LABS: PLATELET COUNT, AUTOMATED 73 10^3/uL (150-450)
[2020-12-19 06:37] LABS: ALBUMIN 1.8 GM/DL (3.2-5.2); ALT/SGPT < 6 U/L (12-78); BILIRUBIN,TOTAL 0.4 MG/DL (0.2-1.0); BLOOD UREA NITROGEN 20 MG/DL (7-18); CALCIUM LEVEL 7.8 MG/DL (8.8-10.2); CARBON DIOXIDE LEVEL 35 MEQ/L (21-32); CHLORIDE LEVEL 101 MEQ/L (98-107); CREATININE FOR GFR 1.12 MG/DL (0.55-1.30); GLOMERULAR FILTRATION RATE 49.1 (>32); GLUCOSE, FASTING 73 MG/DL (70-100); MAGNESIUM LEVEL 2.6 MG/DL (1.8-2.4); POTASSIUM SERUM 3.5 MEQ/L (3.5-5.1); SODIUM LEVEL 140 MEQ/L (136-145); TOTAL PROTEIN 5.2 GM/DL (6.4-8.2)
[2020-12-19] MEDS: METOPROLOL TART 12.5 MG PER 1/2 TAB PO SCH ×2 (09:00→21:00)
[2020-12-19] MEDS: CALCIUM/VITAMIN D 500 MG TAB PO SCH (09:13)
[2020-12-19] MEDS: ASPIRIN 81 MG CHEW TABLET PO SCH (09:13)
[2020-12-19] MEDS: MIRALAX *UNIT DOSE* 17GM PACKET PO SCH (09:13)
[2020-12-19] MEDS: IRON POLYSAC (NIFEREX) 150 MG CAP PO SCH ×2 (09:13→21:58)
[2020-12-19] MEDS: SERTRALINE HCL 50 MG TAB PO SCH (09:13)
[2020-12-19] MEDS: DIGOXIN 0.125 MG TAB PO SCH (09:18)
[2020-12-19] MEDS: TORSEMIDE 20 MG TAB PO SCH (09:19)
[2020-12-19] MEDS: FOLIC ACID 1 MG TAB PO SCH (09:19)
[2020-12-19] MEDS: DOCUSATE SODIUM 100MG CAPSULE PO SCH ×2 (09:19→21:58)
[2020-12-19] MEDS: APIXABAN 2.5 MG TAB (ELIQUIS) PO SCH ×2 (09:19→21:58)
[2020-12-19] MEDS: ULTRACET TAB PO SCH ×2 (09:21→21:58)
[2020-12-19 09:22] VITALS: BP 92/46
[2020-12-19] MEDS: QUEtiapine FUMARATE 25 MG TAB PO SCH (21:58)
[2020-12-19] MEDS: MIRTAZAPINE 15 MG TAB PO SCH (21:58)
[2020-12-19] MEDS: ATORVASTATIN 20 MG TAB PO SCH (21:58)
[2020-12-20] MEDS: SODIUM CHLORIDE 0.9% INJ 10 ML SYR IV PRN ×2 (03:23→05:10)
[2020-12-20] MEDS: ceFAZolin SOD 1 GM in D5W MINI-BAG PLUS 50 ML IV SCH ×6 (03:23→18:18)
[2020-12-20] MEDS: SODIUM CHLORIDE 0.9% INJ 10 ML SYR IV SCH ×2 (05:09→16:52)
[2020-12-20 05:33] LABS: HEMATOCRIT 26.3 % (36.0-47.0); HEMOGLOBIN 8.5 g/dl (12.0-15.5); LYMPH # 0.7 10^3/uL (1.5-5.0); LYMPH % 19.3 % (24.0-44.0); MEAN CORPUSCULAR HEMOGLOBIN 32.7 pg (27.0-33.0); MEAN CORPUSCULAR HGB CONC 32.3 g/dl (32.0-36.5); MEAN CORPUSCULAR VOLUME 101.2 fl (80.0-96.0); MONO # 0.5 10^3/uL (0.0-0.8); MONO % 13.8 % (2.0-8.0); NEUTROPHILS # 2.5 10^3/uL (1.5-8.5); NEUTROPHILS % 66.4 % (36.0-66.0); WHITE BLOOD COUNT 3.8 10^3/uL (4.0-10.0)
[2020-12-20 05:34] LABS: PLATELET COUNT, AUTOMATED 78 10^3/uL (150-450)
[2020-12-20 06:00] VITALS: BP 114/61
[2020-12-20 06:07] LABS: ALBUMIN 1.8 GM/DL (3.2-5.2); ALT/SGPT < 6 U/L (12-78); BILIRUBIN,TOTAL 0.3 MG/DL (0.2-1.0); BLOOD UREA NITROGEN 20 MG/DL (7-18); CALCIUM LEVEL 7.6 MG/DL (8.8-10.2); CARBON DIOXIDE LEVEL 36 MEQ/L (21-32); CHLORIDE LEVEL 101 MEQ/L (98-107); CREATININE FOR GFR 1.18 MG/DL (0.55-1.30); GLOMERULAR FILTRATION RATE 46.2 (>32); GLUCOSE, FASTING 77 MG/DL (70-100); MAGNESIUM LEVEL 2.4 MG/DL (1.8-2.4); POTASSIUM SERUM 3.4 MEQ/L (3.5-5.1); SODIUM LEVEL 140 MEQ/L (136-145); TOTAL PROTEIN 5.4 GM/DL (6.4-8.2)
[2020-12-20] MEDS: LEVOTHYROXINE 100MCG TABLET (0.1MG) PO SCH (06:37)
[2020-12-20] MEDS: ALENDRONATE 35MG TABLET PO SCH (07:00)
[2020-12-20] MEDS ORDERED: POTASSIUM CHLORIDE 10MEQ SR TABLET PO ONE (07:20)
[2020-12-20 08:11] VITALS: BP 114/65
[2020-12-20] MEDS: METOPROLOL TART 12.5 MG PER 1/2 TAB PO SCH ×2 (08:11→21:34)
[2020-12-20] MEDS: MIRALAX *UNIT DOSE* 17GM PACKET PO SCH (08:12)
[2020-12-20] MEDS: ULTRACET TAB PO SCH ×2 (08:13→21:35)
[2020-12-20] MEDS: DIGOXIN 0.125 MG TAB PO SCH (08:13)
[2020-12-20] MEDS: CALCIUM/VITAMIN D 500 MG TAB PO SCH (08:13)
[2020-12-20] MEDS: DOCUSATE SODIUM 100MG CAPSULE PO SCH ×2 (08:13→21:33)
[2020-12-20] MEDS: IRON POLYSAC (NIFEREX) 150 MG CAP PO SCH ×2 (08:13→21:33)
[2020-12-20] MEDS: SERTRALINE HCL 50 MG TAB PO SCH (08:13)
[2020-12-20] MEDS: APIXABAN 2.5 MG TAB (ELIQUIS) PO SCH ×2 (08:14→21:34)
[2020-12-20] MEDS: TORSEMIDE 20 MG TAB PO SCH (08:14)
[2020-12-20] MEDS: FOLIC ACID 1 MG TAB PO SCH (08:14)
[2020-12-20] MEDS: ASPIRIN 81 MG CHEW TABLET PO SCH (08:14)
[2020-12-20] MEDS ORDERED: ONDANSETRON 4MG/2ML VIAL IV ONE (10:35)
[2020-12-20] MEDS: ACETAMINOPHEN TAB 650MG DOSE (2X325MG) PO PRN (17:08)
[2020-12-20] MEDS: ATORVASTATIN 20 MG TAB PO SCH (21:33)
[2020-12-20] MEDS: MIRTAZAPINE 15 MG TAB PO SCH (21:34)
[2020-12-20] MEDS: QUEtiapine FUMARATE 25 MG TAB PO SCH (21:35)
[2020-12-21] MEDS: ceFAZolin SOD 1 GM in D5W MINI-BAG PLUS 50 ML IV SCH ×6 (02:25→18:34)
[2020-12-21] MEDS: LEVOTHYROXINE 100MCG TABLET (0.1MG) PO SCH (05:49)
[2020-12-21] MEDS: SODIUM CHLORIDE 0.9% INJ 10 ML SYR IV SCH ×2 (05:50→17:51)
[2020-12-21 06:00] VITALS: BP 121/58
[2020-12-21 06:28] LABS: EOS % 0.3 % (0.0-3.0); HEMATOCRIT 25.8 % (36.0-47.0); HEMOGLOBIN 8.3 g/dl (12.0-15.5); LYMPH # 0.8 10^3/uL (1.5-5.0); LYMPH % 19.8 % (24.0-44.0); MEAN CORPUSCULAR HEMOGLOBIN 33.3 pg (27.0-33.0); MEAN CORPUSCULAR HGB CONC 32.2 g/dl (32.0-36.5); MEAN CORPUSCULAR VOLUME 103.6 fl (80.0-96.0); MONO # 0.5 10^3/uL (0.0-0.8); MONO % 11.9 % (2.0-8.0); NEUTROPHILS # 2.6 10^3/uL (1.5-8.5); NEUTROPHILS % 67.5 % (36.0-66.0); RED BLOOD COUNT 2.49 10^6/uL (4.00-5.40); WHITE BLOOD COUNT 3.9 10^3/uL (4.0-10.0)
[2020-12-21 06:59] LABS: ALBUMIN 1.8 GM/DL (3.2-5.2); ALT/SGPT < 6 U/L (12-78); BILIRUBIN,TOTAL 0.3 MG/DL (0.2-1.0); BLOOD UREA NITROGEN 20 MG/DL (7-18); CALCIUM LEVEL 7.6 MG/DL (8.8-10.2); CARBON DIOXIDE LEVEL 36 MEQ/L (21-32); CHLORIDE LEVEL 102 MEQ/L (98-107); GLOMERULAR FILTRATION RATE 45.3 (>32); GLUCOSE, FASTING 70 MG/DL (70-100); MAGNESIUM LEVEL 2.2 MG/DL (1.8-2.4); POTASSIUM SERUM 4.2 MEQ/L (3.5-5.1); SODIUM LEVEL 140 MEQ/L (136-145); TOTAL PROTEIN 5.2 GM/DL (6.4-8.2)
[2020-12-21 07:00] LABS: PLATELET COUNT, AUTOMATED 72 10^3/uL (150-450)
[2020-12-21] MEDS: MIRALAX *UNIT DOSE* 17GM PACKET PO SCH (09:00)
[2020-12-21] MEDS: METOPROLOL TART 12.5 MG PER 1/2 TAB PO SCH ×2 (09:00→20:56)
[2020-12-21] MEDS: DOCUSATE SODIUM 100MG CAPSULE PO SCH ×2 (09:00→20:55)
[2020-12-21] MEDS: ASPIRIN 81 MG CHEW TABLET PO SCH (10:40)
[2020-12-21] MEDS: CALCIUM/VITAMIN D 500 MG TAB PO SCH (10:41)
[2020-12-21] MEDS: TORSEMIDE 20 MG TAB PO SCH (10:41)
[2020-12-21] MEDS: SERTRALINE HCL 50 MG TAB PO SCH (10:41)
[2020-12-21] MEDS: FOLIC ACID 1 MG TAB PO SCH (10:41)
[2020-12-21] MEDS: APIXABAN 2.5 MG TAB (ELIQUIS) PO SCH ×2 (10:41→21:05)
[2020-12-21] MEDS: DIGOXIN 0.125 MG TAB PO SCH (10:41)
[2020-12-21] MEDS: IRON POLYSAC (NIFEREX) 150 MG CAP PO SCH ×2 (10:41→21:06)
[2020-12-21] MEDS: ULTRACET TAB PO SCH ×2 (10:42→21:07)
[2020-12-21] MEDS: SODIUM CHLORIDE 0.9% INJ 10 ML SYR IV PRN (12:13)
--- NOTE | 2020-12-21 15:41 | IPN ---
PROGRESS NOTE DATE: 12/21/2020 Earlene is doing well. She is in a good mood. She has no complaints today. She cannot wait to go home on December 31 when he daughter comes back from [facility]. She has no nausea, vomiting, or diarrhea. Her wound vacuum-assisted closure (VAC) is being changed this afternoon. No chest pain, shortness of breath. PHYSICAL EXAMINATION: Healthy looking, sitting at her bedside in her chair in no acute distress, smiling. HEART: Normal S1, S2, distant. Chest wall with no tenderness. Well-healed coronary artery bypass graft (CABG) scar. LUNGS: Clear. No wheezes, rales, or rhonchi. ABDOMEN: Soft, nontender. EXTREMITIES: No calf tenderness or edema. SKIN: No rashes. IMPRESSION: 1. Staphylococcus aureus bacteremia with methicillin-sensitive Staphylococcus aureus (MSSA), status post aortic valve replacement and CABG. The patient is being treated for presumptive endocarditis. She is on IV cefazolin 2 grams every 4 hours until December 31, doing well. 2. Coronary artery disease, congestive heart failure. Is doing much better. Cough has resolved. She is not hypoxic and not short of breath. 3. Sacral decubitus ulcer. Wound VAC will be changed this afternoon, and I will be going to check the wound VAC when the nurse changes it. PLAN: Continue IV cefazolin until December 31. Repeat complete blood count (CBC), basic erythrocyte sedimentation rate (ESR), C-reactive protein (CRP) on Thursday. I canceled labs that she had scheduled for the weekend, as her labs have been very stable throughout the week. [place]
[2020-12-21] MEDS: QUEtiapine FUMARATE 25 MG TAB PO SCH (21:06)
[2020-12-21] MEDS: MIRTAZAPINE 15 MG TAB PO SCH (21:06)
[2020-12-21] MEDS: ATORVASTATIN 20 MG TAB PO SCH (21:06)
[2020-12-22] MEDS: ceFAZolin SOD 1 GM in D5W MINI-BAG PLUS 50 ML IV SCH ×6 (01:29→19:40)
[2020-12-22] MEDS: SODIUM CHLORIDE 0.9% INJ 10 ML SYR IV PRN ×5 (01:30→20:41)
[2020-12-22 06:00] VITALS: BP 118/56
[2020-12-22] MEDS: LEVOTHYROXINE 100MCG TABLET (0.1MG) PO SCH (06:29)
[2020-12-22] MEDS: SODIUM CHLORIDE 0.9% INJ 10 ML SYR IV SCH ×2 (06:29→20:41)
[2020-12-22] MEDS: ULTRACET TAB PO SCH ×2 (09:00→20:42)
[2020-12-22] MEDS: MIRALAX *UNIT DOSE* 17GM PACKET PO SCH (09:00)
[2020-12-22] MEDS: DOCUSATE SODIUM 100MG CAPSULE PO SCH ×2 (09:00→20:41)
[2020-12-22] MEDS: METOPROLOL TART 12.5 MG PER 1/2 TAB PO SCH ×2 (09:00→20:36)
[2020-12-22] MEDS: IRON POLYSAC (NIFEREX) 150 MG CAP PO SCH ×2 (09:28→20:41)
[2020-12-22] MEDS: APIXABAN 2.5 MG TAB (ELIQUIS) PO SCH ×2 (09:28→20:41)
[2020-12-22] MEDS: ASPIRIN 81 MG CHEW TABLET PO SCH (09:28)
[2020-12-22] MEDS: DIGOXIN 0.125 MG TAB PO SCH (09:28)
[2020-12-22] MEDS: FOLIC ACID 1 MG TAB PO SCH (09:28)
[2020-12-22] MEDS: SERTRALINE HCL 50 MG TAB PO SCH (09:28)
[2020-12-22] MEDS: CALCIUM/VITAMIN D 500 MG TAB PO SCH (09:29)
[2020-12-22] MEDS: ATORVASTATIN 20 MG TAB PO SCH (20:41)
[2020-12-22] MEDS: QUEtiapine FUMARATE 25 MG TAB PO SCH (20:42)
[2020-12-22] MEDS: MIRTAZAPINE 15 MG TAB PO SCH (20:42)
[2020-12-23] MEDS: ceFAZolin SOD 1 GM in D5W MINI-BAG PLUS 50 ML IV SCH ×6 (01:45→18:57)
[2020-12-23] MEDS: SODIUM CHLORIDE 0.9% INJ 10 ML SYR IV PRN ×6 (01:45→21:44)
[2020-12-23 06:00] VITALS: BP 101/55
[2020-12-23] MEDS: LEVOTHYROXINE 100MCG TABLET (0.1MG) PO SCH (06:06)
[2020-12-23] MEDS: SODIUM CHLORIDE 0.9% INJ 10 ML SYR IV SCH ×2 (06:06→18:58)
[2020-12-23] MEDS: METOPROLOL TART 12.5 MG PER 1/2 TAB PO SCH ×2 (09:00→21:00)
[2020-12-23] MEDS: MIRALAX *UNIT DOSE* 17GM PACKET PO SCH (09:00)
[2020-12-23] MEDS: IRON POLYSAC (NIFEREX) 150 MG CAP PO SCH ×2 (09:52→21:42)
[2020-12-23] MEDS: ASPIRIN 81 MG CHEW TABLET PO SCH (09:52)
[2020-12-23] MEDS: DOCUSATE SODIUM 100MG CAPSULE PO SCH ×2 (09:52→21:42)
[2020-12-23] MEDS: TORSEMIDE 20 MG TAB PO SCH (09:52)
[2020-12-23] MEDS: SERTRALINE HCL 50 MG TAB PO SCH (09:52)
[2020-12-23] MEDS: ULTRACET TAB PO SCH ×2 (09:52→21:44)
[2020-12-23] MEDS: CALCIUM/VITAMIN D 500 MG TAB PO SCH (09:53)
[2020-12-23] MEDS: APIXABAN 2.5 MG TAB (ELIQUIS) PO SCH ×2 (09:53→21:42)
[2020-12-23] MEDS: DIGOXIN 0.125 MG TAB PO SCH (09:53)
[2020-12-23] MEDS: FOLIC ACID 1 MG TAB PO SCH (09:53)
[2020-12-23 12:29] LABS: BASO % 0.2 % (0.0-1.0); EOS % 0.2 % (0.0-3.0); HEMATOCRIT 25.8 % (36.0-47.0); HEMOGLOBIN 8.1 g/dl (12.0-15.5); LYMPH # 0.8 10^3/uL (1.5-5.0); LYMPH % 12.1 % (24.0-44.0); MEAN CORPUSCULAR HEMOGLOBIN 31.9 pg (27.0-33.0); MEAN CORPUSCULAR HGB CONC 31.4 g/dl (32.0-36.5); MEAN CORPUSCULAR VOLUME 101.6 fl (80.0-96.0); MONO # 0.6 10^3/uL (0.0-0.8); MONO % 9.5 % (2.0-8.0); NEUTROPHILS # 5.1 10^3/uL (1.5-8.5); NEUTROPHILS % 77.5 % (36.0-66.0); RED BLOOD COUNT 2.54 10^6/uL (4.00-5.40); WHITE BLOOD COUNT 6.5 10^3/uL (4.0-10.0)
[2020-12-23 12:32] LABS: PLATELET COUNT, AUTOMATED 79 10^3/uL (150-450)
--- NOTE | 2020-12-23 12:59 | CR ---
CONSULTATION DATE: 12/23/20 REASON FOR CONSULTATION: Decubitus ulcer. HISTORY OF PRESENT ILLNESS: The patient is an 85-year-old female currently up on the fourth floor. She has been treated in the hospital for over a month, initially came in secondary to fall. She has been treated for pneumonia throughout her stay. She also currently is being treated for bacteremia with possible endocarditis. She has had a decubitus here throughout her stay with a wound VAC in place. She is not sure how long she has had it altogether but she has had it for a long period of time. She has been doing intermittent telemed conferences with Dr. Wiley who has been managing her wound VAC and on his last evaluation, he recommended debriding the wound edges. He said that he see her in the office once she leaves the hospital to do so himself. However, I was asked to evaluate for possible debridement during her inpatient stay. She denies any pain from the area, no problems with the wound VAC. Nurses say that the wound VAC since the pressure was decreased to 100 from 125 they have had a harder keeping it in place. They also had a harder time with her urination but the Avila catheter is in place and that seems to be assisting with that. PAST MEDICAL HISTORY: 1. Coronary artery disease. 2. A fib. 3. CHF. 4. Hypertension. 5. COPD. 6. Gout. 7. Hypothyroidism. 8. Depression. PAST SURGICAL HISTORY: 1. Bilateral cataracts. 2. CABG. 3. Heart valve replacement. 4. Pacemaker placement. 5. Left TKA. 6. Right arm ORIF. SOCIAL HISTORY: Denies drug, alcohol or tobacco abuse. FAMILY HISTORY: Noncontributory. ALLERGIES: CODEINE, TRAMADOL. MEDICATIONS: Please see med rec. REVIEW OF SYSTEMS: Pertinent positives and negatives as stated in HPI. PHYSICAL EXAMINATION: GENERAL: A&O x3, in no acute distress. VITALS: Temp 98, pulse 88, respirations 17, blood pressure 101/55, pulse ox 94% on room air. HEENT: Pupils equally round, reactive to light and accommodation. HEART: S1, S2. Regular rate and rhythm. LUNGS: Clear to auscultation bilaterally. ABDOMEN: Soft, nontender, nondistended. SKIN: Sacral decubitus ulcer is in place. Wound VAC is present. With the nursing assistance, wound VAC was removed. The opening in the skin itself is only about 2 cm in diameter, undermines to about 3 cm around the edges. Wound bed is all nice and clean with good granulation tissue in place. ASSESSMENT AND PLAN: Patient again 85-year-old female currently being treated for bacteremia, has a stage IV sacral decubitus ulcer in place with wound VAC. Recommendation at this time is to continue with Dr. Wiley's current wound VAC orders. I do not see any need for debridement at this time. There is nothing urgent with that. Recommend followup with Dr. Wiley as an outpatient. He can evaluate the wound in person and if he still feels that it needs debridement, he can do so right in his office. There is no need for any acute intervention at this time. Continue VAC therapy. Thank you for consult. [place]
[2020-12-23 13:13] LABS: ALBUMIN 1.8 GM/DL (3.2-5.2); ALT/SGPT < 6 U/L (12-78); BILIRUBIN,TOTAL 0.2 MG/DL (0.2-1.0); BLOOD UREA NITROGEN 27 MG/DL (7-18); CALCIUM LEVEL 7.8 MG/DL (8.8-10.2); CARBON DIOXIDE LEVEL 38 MEQ/L (21-32); CHLORIDE LEVEL 100 MEQ/L (98-107); CREATININE FOR GFR 1.22 MG/DL (0.55-1.30); GLOMERULAR FILTRATION RATE 44.5 (>32); GLUCOSE, FASTING 80 MG/DL (70-100); LIPASE 61 U/L (73-393); MAGNESIUM LEVEL 2.1 MG/DL (1.8-2.4); POTASSIUM SERUM 4.3 MEQ/L (3.5-5.1); SODIUM LEVEL 139 MEQ/L (136-145); TOTAL PROTEIN 5.1 GM/DL (6.4-8.2)
[2020-12-23] MEDS: ONDANSETRON 4MG/2ML VIAL IV PRN (13:18)
--- NOTE | 2020-12-23 16:19 | REP ---
INDICATION: Nausea and Vomiting. COMPARISON: 11/17/2020 also without contrast TECHNIQUE: Standard helical technique without intravenous or oral bowel preparatory contrast. This causes exam limitations. FINDINGS: There are chronic lung base changes status quo. There is pericardial thickening. There is no pleural or pericardial effusion. There is four-chamber cardiac enlargement status quo. Limited evaluation of the solid intra-organs show no gross changes from the prior exam. There is calcific granulomatous change seen involving the liver and spleen status quo. There is cholelithiasis status quo. There is focal ectasia of the infrarenal abdominal aorta with calcific atherosclerotic change status quo. The pancreas, adrenal glands, and kidneys are unchanged. There is no evidence of free fluid or free air. There is no evidence of a mass or adenopathy. IMPRESSION: No significant changes compared to the prior exam. No acute disease. Findings as described above. <Electronically signed by Rich Taveras > 12/23/20 [id number]
[2020-12-23] MEDS: ATORVASTATIN 20 MG TAB PO SCH (21:42)
[2020-12-23] MEDS: MIRTAZAPINE 15 MG TAB PO SCH (21:42)
[2020-12-23] MEDS: QUEtiapine FUMARATE 25 MG TAB PO SCH (21:42)
[2020-12-24] MEDS: SODIUM CHLORIDE 0.9% INJ 10 ML SYR IV PRN ×4 (02:08→10:07)
[2020-12-24] MEDS: ceFAZolin SOD 1 GM in D5W MINI-BAG PLUS 50 ML IV SCH ×6 (02:08→17:42)
[2020-12-24] MEDS: SODIUM CHLORIDE 0.9% INJ 10 ML SYR IV SCH ×2 (05:45→17:43)
[2020-12-24] MEDS: LEVOTHYROXINE 100MCG TABLET (0.1MG) PO SCH (05:45)
[2020-12-24 06:00] VITALS: BP 111/55
[2020-12-24 06:10] LABS: BASO % 0.2 % (0.0-1.0); EOS % 0.5 % (0.0-3.0); HEMATOCRIT 22.9 % (36.0-47.0); HEMOGLOBIN 7.1 g/dl (12.0-15.5); LYMPH # 0.7 10^3/uL (1.5-5.0); LYMPH % 16.6 % (24.0-44.0); MEAN CORPUSCULAR HEMOGLOBIN 31.7 pg (27.0-33.0); MEAN CORPUSCULAR VOLUME 102.2 fl (80.0-96.0); MONO # 0.4 10^3/uL (0.0-0.8); MONO % 9.7 % (2.0-8.0); NEUTROPHILS # 3.2 10^3/uL (1.5-8.5); NEUTROPHILS % 72.5 % (36.0-66.0); RED BLOOD COUNT 2.24 10^6/uL (4.00-5.40); WHITE BLOOD COUNT 4.3 10^3/uL (4.0-10.0)
[2020-12-24 06:18] LABS: PLATELET COUNT, AUTOMATED 66 10^3/uL (150-450)
[2020-12-24 06:34] LABS: ALBUMIN 1.6 GM/DL (3.2-5.2); ALT/SGPT < 6 U/L (12-78); BILIRUBIN,TOTAL 0.3 MG/DL (0.2-1.0); BLOOD UREA NITROGEN 26 MG/DL (7-18); CALCIUM LEVEL 7.6 MG/DL (8.8-10.2); CARBON DIOXIDE LEVEL 35 MEQ/L (21-32); CHLORIDE LEVEL 102 MEQ/L (98-107); CREATININE FOR GFR 1.11 MG/DL (0.55-1.30); GLOMERULAR FILTRATION RATE 49.6 (>32); GLUCOSE, FASTING 74 MG/DL (70-100); MAGNESIUM LEVEL 1.8 MG/DL (1.8-2.4); POTASSIUM SERUM 3.9 MEQ/L (3.5-5.1); SODIUM LEVEL 139 MEQ/L (136-145); TOTAL PROTEIN 4.9 GM/DL (6.4-8.2)
[2020-12-24] MEDS: APIXABAN 2.5 MG TAB (ELIQUIS) PO SCH ×2 (10:08→20:20)
[2020-12-24] MEDS: ASPIRIN 81 MG CHEW TABLET PO SCH (10:08)
[2020-12-24] MEDS: IRON POLYSAC (NIFEREX) 150 MG CAP PO SCH ×2 (10:09→20:20)
[2020-12-24] MEDS: TORSEMIDE 20 MG TAB PO SCH (10:09)
[2020-12-24] MEDS: FOLIC ACID 1 MG TAB PO SCH (10:09)
[2020-12-24] MEDS: CALCIUM/VITAMIN D 500 MG TAB PO SCH (10:09)
[2020-12-24] MEDS: SERTRALINE HCL 50 MG TAB PO SCH (10:10)
[2020-12-24] MEDS: ULTRACET TAB PO SCH ×2 (10:10→20:22)
[2020-12-24] MEDS: DOCUSATE SODIUM 100MG CAPSULE PO SCH ×2 (10:11→20:20)
[2020-12-24] MEDS: MIRALAX *UNIT DOSE* 17GM PACKET PO SCH (10:11)
[2020-12-24] MEDS: DIGOXIN 0.125 MG TAB PO SCH (10:15)
[2020-12-24] MEDS: METOPROLOL TART 12.5 MG PER 1/2 TAB PO SCH ×2 (10:16→20:14)
[2020-12-24 12:24] LABS: HEMATOCRIT 24.8 % (36.0-47.0); HEMOGLOBIN 7.8 g/dl (12.0-15.5)
[2020-12-24] MEDS: ATORVASTATIN 20 MG TAB PO SCH (20:19)
[2020-12-24] MEDS: MIRTAZAPINE 15 MG TAB PO SCH (20:20)
[2020-12-24] MEDS: QUEtiapine FUMARATE 25 MG TAB PO SCH (20:20)
[2020-12-25] MEDS: ceFAZolin SOD 1 GM in D5W MINI-BAG PLUS 50 ML IV SCH ×6 (02:04→17:16)
[2020-12-25] MEDS: SODIUM CHLORIDE 0.9% INJ 10 ML SYR IV PRN (02:04)
[2020-12-25] MEDS: SODIUM CHLORIDE 0.9% INJ 10 ML SYR IV SCH ×2 (03:43→17:17)
[2020-12-25] MEDS: LEVOTHYROXINE 100MCG TABLET (0.1MG) PO SCH (05:47)
[2020-12-25 06:00] VITALS: BP 120/56
[2020-12-25] MEDS: METOPROLOL TART 12.5 MG PER 1/2 TAB PO SCH ×2 (08:00→20:31)
[2020-12-25] MEDS: IRON POLYSAC (NIFEREX) 150 MG CAP PO SCH ×2 (08:05→20:38)
[2020-12-25] MEDS: APIXABAN 2.5 MG TAB (ELIQUIS) PO SCH ×2 (08:05→20:36)
[2020-12-25] MEDS: ASPIRIN 81 MG CHEW TABLET PO SCH (08:05)
[2020-12-25] MEDS: SERTRALINE HCL 50 MG TAB PO SCH (08:05)
[2020-12-25] MEDS: DOCUSATE SODIUM 100MG CAPSULE PO SCH ×2 (08:05→20:37)
[2020-12-25] MEDS: FOLIC ACID 1 MG TAB PO SCH (08:06)
[2020-12-25] MEDS: CALCIUM/VITAMIN D 500 MG TAB PO SCH (08:06)
[2020-12-25] MEDS: DIGOXIN 0.125 MG TAB PO SCH (08:06)
[2020-12-25] MEDS: TORSEMIDE 20 MG TAB PO SCH (08:06)
[2020-12-25] MEDS: ULTRACET TAB PO SCH ×2 (08:18→20:37)
[2020-12-25] MEDS: MIRALAX *UNIT DOSE* 17GM PACKET PO SCH (08:19)
[2020-12-25] MEDS: ONDANSETRON 4MG/2ML VIAL IV PRN (08:19)
[2020-12-25] MEDS: ATORVASTATIN 20 MG TAB PO SCH (20:37)
[2020-12-25] MEDS: MIRTAZAPINE 15 MG TAB PO SCH (20:37)
[2020-12-25] MEDS: QUEtiapine FUMARATE 25 MG TAB PO SCH (20:37)
[2020-12-26] MEDS: ceFAZolin SOD 1 GM in D5W MINI-BAG PLUS 50 ML IV SCH ×6 (01:54→17:53)
[2020-12-26] MEDS: SODIUM CHLORIDE 0.9% INJ 10 ML SYR IV SCH ×2 (03:51→19:30)
[2020-12-26] MEDS: LEVOTHYROXINE 100MCG TABLET (0.1MG) PO SCH (05:46)
[2020-12-26 06:00] VITALS: BP 112/58
[2020-12-26] MEDS: APIXABAN 2.5 MG TAB (ELIQUIS) PO SCH ×2 (10:06→21:25)
[2020-12-26] MEDS: DOCUSATE SODIUM 100MG CAPSULE PO SCH ×2 (10:06→21:26)
[2020-12-26] MEDS: ASPIRIN 81 MG CHEW TABLET PO SCH (10:06)
--- NOTE | 2020-12-26 10:06 | IPN ---
PROGRESS NOTE DATE: 12/25/2020 Earlene is doing well. She denies any complaint. She had her wound vacuum-assisted closure (VAC) done yesterday. She denies any nausea, vomiting, or diarrhea. LABORATORY DATA: White count 4.3, hemoglobin 7.1, hematocrit 22.9, MCV 102.2, platelets 66, 72% neutrophils, 16% lymphocytes, 9% monocytes. ESR 49. Sodium 139, potassium 3.9, chloride 102, bicarbonate 35, BUN 26, creatinine 1.1, glucose 74, calcium 7.6, magnesium 1.8, CRP 0.71, down from 11.9. Blood cultures, December 14, two sets, were no growth after 5 days. PHYSICAL EXAMINATION: Temperature is 97.7, pulse 86, respirations 17, blood pressure 120/56, oxygen saturation 96% on room air. HEART: Normal S1, S2 with a systolic ejection murmur, unchanged. LUNGS: Clear. No wheezes, rales, or rhonchi. Fair air entry bilaterally. ABDOMEN: Soft, nontender. No hepatosplenomegaly. EXTREMITIES: No edema. Sacral decubitus with a wound VAC in place. Patient was seen in consultation by Dr. Michelle. Ulcer measures 2 cm with undermining about 3 cm around the edges. There is no exposed bone. Dr. Michelle did not recommend any debridement. IMPRESSION: 1. Staphylococcus aureus bacteremia, status post aortic valve replacement with presumptive endocarditis, on intravenous (IV) cefazolin until December 31, doing well. 2. Coronary artery disease, status post valve replacement and congestive heart failure, doing well without any symptoms. 3. Sacral decubitus ulcer, stage IV with slow healing. Wound VAC in place. 4. Anemia with a hemoglobin of 7.1. Needs to be closely monitored in such a frail, elderly female. Patient received 5 units of blood during this hospitalization. PLAN: Continue same medications. Monitor labs at least once a week with a complete blood count (CBC), basic, erythrocyte sedimentation rate (ESR), C-reactive protein (CRP). End of therapy is December 31. Also, patient will need followup echocardiogram as an outpatient and blood culture surveillance 1 week after IV antibiotics are discontinued, which will be around January 07. Blood cultures times two sets will be done. [facility]
[2020-12-26] MEDS: TORSEMIDE 20 MG TAB PO SCH (10:07)
[2020-12-26] MEDS: FOLIC ACID 1 MG TAB PO SCH (10:07)
[2020-12-26] MEDS: CALCIUM/VITAMIN D 500 MG TAB PO SCH (10:08)
[2020-12-26] MEDS: SERTRALINE HCL 50 MG TAB PO SCH (10:08)
[2020-12-26] MEDS: IRON POLYSAC (NIFEREX) 150 MG CAP PO SCH ×2 (10:08→21:25)
[2020-12-26] MEDS: DIGOXIN 0.125 MG TAB PO SCH (10:08)
[2020-12-26] MEDS: METOPROLOL TART 12.5 MG PER 1/2 TAB PO SCH ×2 (10:08→21:00)
[2020-12-26] MEDS: MIRALAX *UNIT DOSE* 17GM PACKET PO SCH (10:09)
[2020-12-26] MEDS: ULTRACET TAB PO SCH ×2 (10:13→21:26)
[2020-12-26] MEDS: SODIUM CHLORIDE 0.9% INJ 10 ML SYR IV PRN (11:49)
[2020-12-26 15:04] LABS: HEMATOCRIT 25.7 % (36.0-47.0); HEMOGLOBIN 8.2 g/dl (12.0-15.5)
[2020-12-26 21:24] VITALS: BP 104/50
[2020-12-26] MEDS: MIRTAZAPINE 15 MG TAB PO SCH (21:25)
[2020-12-26] MEDS: QUEtiapine FUMARATE 25 MG TAB PO SCH (21:25)
[2020-12-26] MEDS: ATORVASTATIN 20 MG TAB PO SCH (21:26)
[2020-12-27] VITALS (9 sets, daily range): BP systolic 96–122; BP diastolic 48–66
[2020-12-27] MEDS: ceFAZolin SOD 1 GM in D5W MINI-BAG PLUS 50 ML IV SCH ×6 (02:14→18:30)
[2020-12-27] MEDS: SODIUM CHLORIDE 0.9% INJ 10 ML SYR IV PRN ×3 (03:52→09:27)
[2020-12-27] MEDS: SODIUM CHLORIDE 0.9% INJ 10 ML SYR IV SCH ×2 (05:00→18:00)
[2020-12-27 05:21] LABS: HEMATOCRIT 22.2 % (36.0-47.0); MEAN CORPUSCULAR HGB CONC 31.5 g/dl (32.0-36.5); MEAN CORPUSCULAR VOLUME 101.4 fl (80.0-96.0); RED BLOOD COUNT 2.19 10^6/uL (4.00-5.40); WHITE BLOOD COUNT 3.4 10^3/uL (4.0-10.0)
[2020-12-27 05:31] LABS: PLATELET COUNT, AUTOMATED 64 10^3/uL (150-450)
[2020-12-27] MEDS: LEVOTHYROXINE 100MCG TABLET (0.1MG) PO SCH (05:42)
[2020-12-27] MEDS ORDERED: NS 500 ML IV ONE (05:55)
[2020-12-27] MEDS: ALENDRONATE 35MG TABLET PO SCH (06:35)
[2020-12-27 07:27] LABS: CALCIUM LEVEL 7.5 MG/DL (8.8-10.2); CREATININE FOR GFR 1.23 MG/DL (0.55-1.30); GLOMERULAR FILTRATION RATE 44.1 (>32); MAGNESIUM LEVEL 1.9 MG/DL (1.8-2.4); PHOSPHORUS LEVEL 2.9 MG/DL (2.5-4.9); POTASSIUM SERUM 3.8 MEQ/L (3.5-5.1)
[2020-12-27] MEDS: APIXABAN 2.5 MG TAB (ELIQUIS) PO SCH ×2 (09:00→20:09)
[2020-12-27] MEDS: METOPROLOL TART 12.5 MG PER 1/2 TAB PO SCH ×2 (09:00→20:07)
[2020-12-27] MEDS: ULTRACET TAB PO SCH ×2 (09:00→20:08)
[2020-12-27] MEDS: TORSEMIDE 20 MG TAB PO SCH (09:00)
[2020-12-27] MEDS: ONDANSETRON 4MG/2ML VIAL IV PRN (09:27)
[2020-12-27] MEDS: DIGOXIN 0.125 MG TAB PO SCH (10:14)
[2020-12-27] MEDS: IRON POLYSAC (NIFEREX) 150 MG CAP PO SCH ×2 (10:15→20:09)
[2020-12-27] MEDS: ASPIRIN 81 MG CHEW TABLET PO SCH (10:15)
[2020-12-27] MEDS: CALCIUM/VITAMIN D 500 MG TAB PO SCH (10:15)
[2020-12-27] MEDS: FOLIC ACID 1 MG TAB PO SCH (10:15)
[2020-12-27] MEDS: DOCUSATE SODIUM 100MG CAPSULE PO SCH ×2 (10:15→20:09)
[2020-12-27] MEDS: SERTRALINE HCL 50 MG TAB PO SCH (10:15)
[2020-12-27] MEDS: MIRALAX *UNIT DOSE* 17GM PACKET PO SCH (10:16)
[2020-12-27] MEDS: MIRTAZAPINE 15 MG TAB PO SCH (20:08)
[2020-12-27] MEDS: ATORVASTATIN 20 MG TAB PO SCH (20:08)
[2020-12-27] MEDS: QUEtiapine FUMARATE 25 MG TAB PO SCH (20:09)
[2020-12-28] MEDS: ceFAZolin SOD 1 GM in D5W MINI-BAG PLUS 50 ML IV SCH ×6 (02:07→17:39)
[2020-12-28] MEDS: SODIUM CHLORIDE 0.9% INJ 10 ML SYR IV PRN ×2 (03:48→10:35)
[2020-12-28] MEDS: LEVOTHYROXINE 100MCG TABLET (0.1MG) PO SCH (05:47)
[2020-12-28] MEDS: SODIUM CHLORIDE 0.9% INJ 10 ML SYR IV SCH ×2 (05:47→17:39)
[2020-12-28 05:54] VITALS: BP 108/52
[2020-12-28 06:12] LABS: HEMATOCRIT 26.9 % (36.0-47.0); HEMOGLOBIN 8.7 g/dl (12.0-15.5); MEAN CORPUSCULAR HGB CONC 32.3 g/dl (32.0-36.5); MEAN CORPUSCULAR VOLUME 98.9 fl (80.0-96.0); PLATELET COUNT, AUTOMATED 69 10^3/uL (150-450); RED BLOOD COUNT 2.72 10^6/uL (4.00-5.40); WHITE BLOOD COUNT 3.4 10^3/uL (4.0-10.0)
[2020-12-28 06:48] LABS: CALCIUM LEVEL 7.7 MG/DL (8.8-10.2); CREATININE FOR GFR 1.11 MG/DL (0.55-1.30); GLOMERULAR FILTRATION RATE 49.6 (>32); PHOSPHORUS LEVEL 2.4 MG/DL (2.5-4.9)
[2020-12-28] MEDS: METOPROLOL TART 12.5 MG PER 1/2 TAB PO SCH ×2 (09:00→20:32)
[2020-12-28] MEDS: ULTRACET TAB PO SCH ×2 (09:00→20:33)
[2020-12-28] MEDS: MOM 30ML SUSPENSION UDC PO PRN (10:11)
[2020-12-28] MEDS: ONDANSETRON 4MG/2ML VIAL IV PRN (10:19)
[2020-12-28] MEDS: TORSEMIDE 20 MG TAB PO SCH (10:27)
[2020-12-28] MEDS: CALCIUM/VITAMIN D 500 MG TAB PO SCH (10:27)
[2020-12-28] MEDS: APIXABAN 2.5 MG TAB (ELIQUIS) PO SCH ×2 (10:28→20:33)
[2020-12-28] MEDS: FOLIC ACID 1 MG TAB PO SCH (10:33)
[2020-12-28] MEDS: DOCUSATE SODIUM 100MG CAPSULE PO SCH ×2 (10:33→20:33)
[2020-12-28] MEDS: ASPIRIN 81 MG CHEW TABLET PO SCH (10:33)
[2020-12-28] MEDS: DIGOXIN 0.125 MG TAB PO SCH (10:33)
[2020-12-28] MEDS: MIRALAX *UNIT DOSE* 17GM PACKET PO SCH (10:34)
[2020-12-28] MEDS: SERTRALINE HCL 50 MG TAB PO SCH (10:34)
[2020-12-28] MEDS: IRON POLYSAC (NIFEREX) 150 MG CAP PO SCH ×2 (10:34→20:33)
[2020-12-28] MEDS: QUEtiapine FUMARATE 25 MG TAB PO SCH (20:33)
[2020-12-28] MEDS: MIRTAZAPINE 15 MG TAB PO SCH (20:33)
[2020-12-28] MEDS: ATORVASTATIN 20 MG TAB PO SCH (20:33)
[2020-12-29] MEDS ORDERED: POTASSIUM PHOSPHATE INJ 20 MMOL in D5W 250 ML IV ONE (00:30)
[2020-12-29] MEDS: ceFAZolin SOD 1 GM in D5W MINI-BAG PLUS 50 ML IV SCH ×6 (02:02→19:02)
[2020-12-29] MEDS: SODIUM CHLORIDE 0.9% INJ 10 ML SYR IV PRN ×3 (03:54→20:39)
[2020-12-29] MEDS: LEVOTHYROXINE 100MCG TABLET (0.1MG) PO SCH (05:50)
[2020-12-29] MEDS: SODIUM CHLORIDE 0.9% INJ 10 ML SYR IV SCH ×2 (05:50→19:03)
[2020-12-29 06:00] VITALS: BP 107/23
[2020-12-29 06:13] LABS: HEMATOCRIT 26.5 % (36.0-47.0); HEMOGLOBIN 8.6 g/dl (12.0-15.5); MEAN CORPUSCULAR HEMOGLOBIN 32.3 pg (27.0-33.0); MEAN CORPUSCULAR HGB CONC 32.5 g/dl (32.0-36.5); MEAN CORPUSCULAR VOLUME 99.6 fl (80.0-96.0); RED BLOOD COUNT 2.66 10^6/uL (4.00-5.40); WHITE BLOOD COUNT 4.3 10^3/uL (4.0-10.0)
[2020-12-29 06:19] LABS: PLATELET COUNT, AUTOMATED 73 10^3/uL (150-450)
[2020-12-29 07:03] LABS: CALCIUM LEVEL 7.6 MG/DL (8.8-10.2); CREATININE FOR GFR 1.04 MG/DL (0.55-1.30); GLOMERULAR FILTRATION RATE 53.5 (>32); MAGNESIUM LEVEL 2.1 MG/DL (1.8-2.4); PHOSPHORUS LEVEL 3.9 MG/DL (2.5-4.9); POTASSIUM SERUM 4.6 MEQ/L (3.5-5.1)
[2020-12-29] MEDS: DIGOXIN 0.125 MG TAB PO SCH (09:48)
[2020-12-29] MEDS: METOPROLOL TART 12.5 MG PER 1/2 TAB PO SCH ×2 (09:48→20:35)
[2020-12-29] MEDS: CALCIUM/VITAMIN D 500 MG TAB PO SCH (09:49)
[2020-12-29] MEDS: TORSEMIDE 20 MG TAB PO SCH (09:49)
[2020-12-29] MEDS: IRON POLYSAC (NIFEREX) 150 MG CAP PO SCH ×2 (09:49→20:31)
[2020-12-29] MEDS: MIRALAX *UNIT DOSE* 17GM PACKET PO SCH (09:49)
[2020-12-29] MEDS: ASPIRIN 81 MG CHEW TABLET PO SCH (09:49)
[2020-12-29] MEDS: DOCUSATE SODIUM 100MG CAPSULE PO SCH ×2 (09:49→20:32)
[2020-12-29] MEDS: SERTRALINE HCL 50 MG TAB PO SCH (09:49)
[2020-12-29] MEDS: FOLIC ACID 1 MG TAB PO SCH (09:49)
[2020-12-29] MEDS: APIXABAN 2.5 MG TAB (ELIQUIS) PO SCH ×2 (09:49→20:32)
[2020-12-29] MEDS: ULTRACET TAB PO SCH ×2 (09:57→20:34)
--- NOTE | 2020-12-29 15:36 | IPNPDOC ---
Subjective Date Seen The patient was seen on 12/29/20. Subjective Chief Complaint/HPI Pt was seen and examined at bedside this morning. She reported feeling well and had no new complaints. She denied chest pain, shortness of breath, palpitations, nausea, vomiting, abdominal pain, problems with urination or bowel movements. Objective Physical Examination Other physical findings General: Lying in bed, no acute distress Head/Neck/Throat: Trachea midline, mucous membranes moist Eyes: Sclera anicteric, no erythema or discharge appreciated bilaterally Thorax: Normal respiratory effort on room air, lungs clear to auscultation bilaterally, no wheezes/rales/rhonchi Cardiovascular: Normal rate, regular rhythm, normal S1, S2; radial and pedal pulses 2+ Abdomen: Bowel sounds present, soft/nontender/nondistended Genitourinary: No CVA tenderness, no Avila in place Musculoskeletal: Moving all extremities, no edema Skin: Warm, dry Neurologic: AAOx3, speech fluent and goal-directed, no focal deficits, grossly intact Assessment /Plan Assessment PMHx of CAD s/p CABG (Completed on October 2020), A. fib, s/p PM, AVR, CHF, HTN, COPD, Gout, Hypothyroidism, Depression, who presented to the ER on 11/16 complaints of right hip pain after she had fallen 4 days prior. She was at [facility] for approx. 60 days and was discharged on 10/31. During this stay, she underwent triple bypass coronary artery grafting, cardiac valve replacement, and pacemaker placement. According to patient and daughter, course was complicated including hospital acquired pneumonia and a large sacral decubitus ulcer. Patient underwent wound debridement of sacral decubitus on 11/16. Imaging performed in the emergency department in investigation of the right hip injury showed possible gas and infection in sacral decubitus wound as well as bilateral lung infiltrates. She met sepsis criteria in the emergency room department was started on broad-spectrum antibiotics. There was no fracture reported on imaging of the right hip. During this hospitalization, she was noted to be bacteremic with presumed endocarditis. She had atrial fibrillation with rapid ventricular response. A thrombus of the left posterior tibial and peroneal veins in the superior left calf. Positive occult blood test. #Macrocytic anemia -We will check iron panel, B12/folate, and occult blood test. -As noted a previous provider had mentioned a positive occult blood test, however this cannot be found in the system. If this is true, we will have to have a discussion with the patient and her family in regards to her Eliquis that is being taken for atrial fibrillation as well as DVT #DVT -Left lower extremity DVT. Likely provoked considering she was hospitalized for prolonged course prior to this admission as well. She was evaluated by the vascular team and determined high risk for progression and possibly pulmonary embolism. Eliquis 2.5 mg twice daily was recommended. Risks and benefits were discussed with the patient. Patient wants to continue for now and have further discussion with her daughter when she returns from [place] #Atrial fibrillation with rapid ventricular response -Resolved. Continue with digoxin and metoprolol for rate control. She has a bioprosthetic heart valve therefore Eliquis would be adequate. #MSSA bacteremia, with presumed endocarditis -Blood cultures on 11/17 grew staph aureus, she is to complete cefazolin on 12/31/2020. Infectious disease team was following during hospitalization. -Patient refused further work-up for endocarditis, and declined BLAYNE. #Heart failure with preserved ejection fraction -No signs of acute exacerbation. Continue with furosemide 20 mg daily #Sacral decubitus ulcer -Wound VAC in place. -Dr. Wiley input appreciated #Hypothyroidism -Continue with levothyroxine #Hypertension -Blood pressure controlled with metoprolol and furosemide. #Hyperlipidemia -Continue with atorvastatin #Bronchitis -Resolved. Continue with inhaled therapy as ordered #Mood disorder -Continue with sertraline and quetiapine #DVT prophylaxis -Offered by Amaya Mrs. Johnston is an 85-year-old female who has a recent extensive history that includes an aortic valve replacement, bypass surgery and pacemaker placement. She came in because her postoperative course was complicated by development of decubital ulcers and she developed septicemia with Staphylococcus aureus. She responded to antibiotic treatment and refused transesophageal echocardiogram. In her condition, I think it is probably reasonable, as she is a very unlikely candidate for redo open heart surgery. She has been on an antibiotic and has been progressively improving. The atrial fibrillation episode probably is not surprising. She is currently on digoxin 0.125 mg daily. I recommend to obtain a level after several days in order to make sure that the level does not become toxic, because her renal function is mildly impaired. She is also on metoprolol, a tiny dose, with holding parameters for hypotension, which is certainly appropriate. She has been anticoagulated with apixaban, which should be continued, provided her platelet count does not drop any further. She is quite firm that she does not want any aggressive measures at this point, and I think that is reasonable. Hopefully, with current treatment, there will be progressive improvement. I was informed by nursing staff that her decubital wound on her sacrum is improving. Please contact me if any further assistance is desired. 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 -Blood cultures on 11/16 Plan/VTE VTE Prophylaxis Ordered?: Yes VS, I&O, 24H, Fishbone Vital Signs/I&O Vital Signs Date Time Temp Pulse Resp B/P (MAP) Pulse Ox O2 Delivery O2 Flow Rate FiO2 12/29/20 09:57 87 18 126/61 Room Air 12/29/20 06:00 97.3 97 I&O- Last 24 Hours up to 6 AM 12/29/20 06:00 Intake Total 896 ml Output Total 1150 ml Balance -254 ml Laboratory Data 24H LABS Laboratory Tests 2 12/29/20 05:56: Nucleated Red Blood Cells % (auto) 0.0, Immature Platelet Fraction 10.6H, Anion Gap 5L, Glomerular Filtration Rate 53.5, Calcium Level 7.6L, Phosphorus Level 3.9#, Magnesium Level 2.1 CBC/BMP Laboratory Tests 12/29/20 05:56 TRACEE ROBERT M.D. Dec 29, 2020 15:35
[2020-12-29] MEDS: MIRTAZAPINE 15 MG TAB PO SCH (20:31)
[2020-12-29] MEDS: ATORVASTATIN 20 MG TAB PO SCH (20:32)
[2020-12-29] MEDS: QUEtiapine FUMARATE 25 MG TAB PO SCH (20:32)
[2020-12-30] MEDS: ceFAZolin SOD 1 GM in D5W MINI-BAG PLUS 50 ML IV SCH ×6 (03:04→19:14)
[2020-12-30] MEDS: SODIUM CHLORIDE 0.9% INJ 10 ML SYR IV SCH ×2 (05:32→20:32)
[2020-12-30] MEDS: LEVOTHYROXINE 100MCG TABLET (0.1MG) PO SCH (05:33)
[2020-12-30 06:00] VITALS: BP 130/58
[2020-12-30] MEDS: METOPROLOL TART 12.5 MG PER 1/2 TAB PO SCH ×2 (09:00→20:32)
[2020-12-30] MEDS: MIRALAX *UNIT DOSE* 17GM PACKET PO SCH (09:00)
[2020-12-30] MEDS: SERTRALINE HCL 50 MG TAB PO SCH (09:17)
[2020-12-30] MEDS: ASPIRIN 81 MG CHEW TABLET PO SCH (09:17)
[2020-12-30] MEDS: ULTRACET TAB PO SCH ×2 (09:17→20:35)
[2020-12-30] MEDS: DOCUSATE SODIUM 100MG CAPSULE PO SCH ×2 (09:18→20:34)
[2020-12-30] MEDS: FOLIC ACID 1 MG TAB PO SCH (09:18)
[2020-12-30] MEDS: IRON POLYSAC (NIFEREX) 150 MG CAP PO SCH ×2 (09:18→20:34)
[2020-12-30] MEDS: CALCIUM/VITAMIN D 500 MG TAB PO SCH (09:18)
[2020-12-30] MEDS: DIGOXIN 0.125 MG TAB PO SCH (09:18)
[2020-12-30] MEDS: TORSEMIDE 20 MG TAB PO SCH (09:18)
[2020-12-30] MEDS: APIXABAN 2.5 MG TAB (ELIQUIS) PO SCH ×2 (09:19→20:34)
[2020-12-30 14:00] VITALS: BP 102/58
[2020-12-30] MEDS: ATORVASTATIN 20 MG TAB PO SCH (20:34)
[2020-12-30] MEDS: MIRTAZAPINE 15 MG TAB PO SCH (20:34)
[2020-12-30] MEDS: QUEtiapine FUMARATE 25 MG TAB PO SCH (20:34)
[2020-12-30 22:00] VITALS: BP 103/57
[2020-12-31] MEDS: ceFAZolin SOD 1 GM in D5W MINI-BAG PLUS 50 ML IV SCH ×6 (02:55→19:02)
[2020-12-31] MEDS: SODIUM CHLORIDE 0.9% INJ 10 ML SYR IV SCH ×2 (05:58→18:52)
[2020-12-31 06:00] VITALS: BP 104/47
[2020-12-31] MEDS: LEVOTHYROXINE 100MCG TABLET (0.1MG) PO SCH (06:00)
[2020-12-31] MEDS: TORSEMIDE 20 MG TAB PO SCH (09:00)
[2020-12-31] MEDS: MIRALAX *UNIT DOSE* 17GM PACKET PO SCH (09:00)
[2020-12-31] MEDS: METOPROLOL TART 12.5 MG PER 1/2 TAB PO SCH ×2 (09:00→20:29)
[2020-12-31] MEDS: DOCUSATE SODIUM 100MG CAPSULE PO SCH ×2 (09:31→20:30)
[2020-12-31] MEDS: APIXABAN 2.5 MG TAB (ELIQUIS) PO SCH ×2 (09:31→20:46)
[2020-12-31] MEDS: ASPIRIN 81 MG CHEW TABLET PO SCH (09:32)
[2020-12-31] MEDS: FOLIC ACID 1 MG TAB PO SCH (09:32)
[2020-12-31] MEDS: DIGOXIN 0.125 MG TAB PO SCH (09:32)
[2020-12-31] MEDS: SERTRALINE HCL 50 MG TAB PO SCH (09:33)
[2020-12-31] MEDS: IRON POLYSAC (NIFEREX) 150 MG CAP PO SCH ×2 (09:33→20:46)
[2020-12-31] MEDS: ULTRACET TAB PO SCH (09:33)
[2020-12-31] MEDS: CALCIUM/VITAMIN D 500 MG TAB PO SCH (09:33)
[2020-12-31] MEDS: ONDANSETRON 4MG/2ML VIAL IV PRN (10:15)
[2020-12-31 14:00] VITALS: BP 100/50
[2020-12-31] MEDS: ATORVASTATIN 20 MG TAB PO SCH (20:46)
[2020-12-31] MEDS: MIRTAZAPINE 15 MG TAB PO SCH (20:46)
[2020-12-31] MEDS: QUEtiapine FUMARATE 25 MG TAB PO SCH (20:46)
[2020-12-31 21:06] VITALS: BP 105/56
[2021-01-01] MEDS: SODIUM CHLORIDE 0.9% INJ 10 ML SYR IV PRN ×2 (02:32→05:32)
[2021-01-01] MEDS: ceFAZolin SOD 1 GM in D5W MINI-BAG PLUS 50 ML IV SCH ×4 (02:33→09:31)
[2021-01-01] MEDS: SODIUM CHLORIDE 0.9% INJ 10 ML SYR IV SCH ×2 (03:58→18:27)
[2021-01-01] MEDS: LEVOTHYROXINE 100MCG TABLET (0.1MG) PO SCH (05:40)
[2021-01-01 06:01] LABS: HEMATOCRIT 23.9 % (36.0-47.0); HEMOGLOBIN 7.8 g/dl (12.0-15.5); MEAN CORPUSCULAR HEMOGLOBIN 33.6 pg (27.0-33.0); MEAN CORPUSCULAR HGB CONC 32.6 g/dl (32.0-36.5); RED BLOOD COUNT 2.32 10^6/uL (4.00-5.40); WHITE BLOOD COUNT 3.9 10^3/uL (4.0-10.0)
[2021-01-01 06:07] LABS: PLATELET COUNT, AUTOMATED 63 10^3/uL (150-450)
[2021-01-01 06:25] LABS: BLOOD UREA NITROGEN 15 MG/DL (7-18); CALCIUM LEVEL 7.4 MG/DL (8.8-10.2); CARBON DIOXIDE LEVEL 34 MEQ/L (21-32); CHLORIDE LEVEL 104 MEQ/L (98-107); CREATININE FOR GFR 0.87 MG/DL (0.55-1.30); GLOMERULAR FILTRATION RATE > 60.0 (>32); GLUCOSE, FASTING 74 MG/DL (70-100); MAGNESIUM LEVEL 2.1 MG/DL (1.8-2.4); PHOSPHORUS LEVEL 2.4 MG/DL (2.5-4.9); POTASSIUM SERUM 4.1 MEQ/L (3.5-5.1); SODIUM LEVEL 140 MEQ/L (136-145)
[2021-01-01] MEDS: METOPROLOL TART 12.5 MG PER 1/2 TAB PO SCH ×2 (09:00→20:17)
[2021-01-01] MEDS: MIRALAX *UNIT DOSE* 17GM PACKET PO SCH (09:00)
[2021-01-01] MEDS: TORSEMIDE 20 MG TAB PO SCH ×2 (09:00→09:32)
[2021-01-01] MEDS: DOCUSATE SODIUM 100MG CAPSULE PO SCH ×2 (09:00→20:20)
[2021-01-01] MEDS: IRON POLYSAC (NIFEREX) 150 MG CAP PO SCH ×2 (09:31→20:16)
[2021-01-01] MEDS: APIXABAN 2.5 MG TAB (ELIQUIS) PO SCH ×2 (09:31→20:16)
[2021-01-01] MEDS: SERTRALINE HCL 50 MG TAB PO SCH (09:31)
[2021-01-01] MEDS: FOLIC ACID 1 MG TAB PO SCH (09:31)
[2021-01-01] MEDS: ULTRACET TAB PO SCH (09:32)
[2021-01-01] MEDS: CALCIUM/VITAMIN D 500 MG TAB PO SCH (09:32)
[2021-01-01] MEDS: ASPIRIN 81 MG CHEW TABLET PO SCH (09:32)
[2021-01-01] MEDS: DIGOXIN 0.125 MG TAB PO SCH (09:41)
[2021-01-01 14:00] VITALS: BP 89/49
--- NOTE | 2021-01-01 17:11 | IPNPDOC ---
Date Seen The patient was seen on 01/01/21. Progress Note Subjective: No acute complaints. Awaiting discharge to home with daughter but daughter is in [facility] currently. Denies chest pain, shortness of breath. Objective: Physical Examination VS: Please see below General: NAD, sitting up at bedside chair, engaging Head/Neck/Throat: Trachea midline, mucous membranes moist Eyes: Sclera anicteric, no erythema or discharge appreciated bilaterally Thorax: Normal respiratory effort on room air, lungs clear to auscultation bilaterally, no wheezes/rales/rhonchi Cardiovascular: Normal rate, regular rhythm, normal S1, S2; radial and pedal pulses 2+ Abdomen: Bowel sounds present, soft/nontender/nondistended Genitourinary: No CVA tenderness, no Avila in place BACk: Right buttocks decub with wound vac in place, appears clean, no erythema Musculoskeletal: Moving all extremities, no edema Skin: Warm, dry Neurologic: AAOx3, speech fluent and goal-directed, no focal deficits, grossly intact Assessment: PMHx of CAD s/p CABG (Completed on October 2020), A. fib, s/p PM, AVR, CHF, HTN, COPD, Gout, Hypothyroidism, Depression, who presented to the ER on 11/16 complaints of right hip pain after she had fallen 4 days prior. She was at [facility] for approx. 60 days and was discharged on 10/31. During this stay, she underwent triple bypass coronary artery grafting, cardiac valve replacement, and pacemaker placement. According to patient and daughter, course was complicated including hospital acquired pneumonia and a large sacral decubit us ulcer. Patient underwent wound debridement of sacral decubitus on 11/16. Imaging performed in the emergency department in investigation of the right hip injury showed possible gas and infection in sacral decubitus wound as well as bilateral lung infiltrates. She met sepsis criteria in the emergency room department was started on broad-spectrum antibiotics. There was no fracture reported on imaging of the right hip. During this hospitalization, she was noted to be bacteremic with presumed endocarditis. She had atrial fibrillation with rapid ventricular response. A thrombus of the left posterior tibial and peroneal veins in the superior left calf. Positive occult blood test. 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 -If + occult blood will discuss further workup with alicja. On eliquis #LLE DVT, provoked -Per vascular team determined high risk for progression and possibly pulmonary embolism. -Currently on Eliquis 2.5 mg twice daily was recommended. Risks and benefits were discussed with the patient. -Per prior notes from hospitalist, patient wants to continue for now and have further discussion with her daughter when she returns from 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 In fectious disease team was following during hospitalization. -Patient refused further work-up for endocarditis, and declined BLAYNE. #Heart failure with preserved ejection fraction -No signs of acute exacerbation. -No longer on furosemide 20 mg daily, c/w BB low dose with HP #Right buttocks sacral decubitus ulcer -Wound VAC in place -Dr. Wiley following #Hypothyroidism -Continue with levothyroxine #Hypotension -sytolic BP 80's today, asymptomatic -Hx of Hypertension -Holding parameters for metoprolol changed. No longer on furosemide -D/c BB if hypotension continues #Hyperlipidemia -Continue with atorvastatin #Mood disorder -Continue with sertraline and quetiapine #WES -Iron supplementation #DVT prophylaxis - Eliquis RESOLVED: #Atrial fibrillation with rapid ventricular response #Bronchitis DISPOSITION: To be discharged with daughter to their home upon her return from [facility]. Dw social work VS, I&O, 24H, [facility] Vital Signs/I&O Vital Signs Date Time Temp Pulse Resp B/P (MAP) Pulse Ox O2 Delivery O2 Flow Rate FiO2 01/01/21 14:00 97.5 80 16 89/49 (62) 100 Room Air I&O- Last 24 Hours up to 6 AM 01/01/21 06:00 Intake Total 560 ml Output Total 800 ml Balance -240 ml Laboratory Data 24H LABS Laboratory Tests 2 01/01/21 05:37: Nucleated Red Blood Cells % (auto) 0.0, Immature Platelet Fraction 11.6H, Anion Gap 2L, Glomerular Filtration Rate > 60.0, Calcium Level 7.4L, Phosphorus Level 2.4#L, Magnesium Level 2.1 CBC/BMP Laboratory Tests 01/01/21 05:37 Current Medications Current Medications Medications (Trade) Dose Ordered Sig/Jeannie Route PRN Reason Start Time Stop Time Status Last Admin Dose Admin Acetaminophen (Tylenol Tab) 650 mg Q4H PRN PO MILD PAIN or TEMP > 101 11/17/20 03:05 11/18/20 19:02 DC 11/17/20 05:58 Acetaminophen (Tylenol Tab) 650 mg Q6HP PRN PO PAIN LEVEL 1-6 11/18/20 19:50 12/20/20 17:08 Acetaminophen (Tylenol Tab) 1,000 mg BID PO 11/18/20 21:00 11/18/20 19:50 DC Al Hydrox/Mg Hydrox/Simethicone (Mylanta) 30 ml DAILY PRN PO DYSPEPSIA 11/17/20 03:05 Albuterol/ Ipratropium (Duoneb (Ipr 0.5mg/Alb 2.5mg)) 3 ml BID PRN NEB SHORTNESS OF BREATH 11/17/20 03:10 12/09/20 21:42 Alendronate Sodium (Fosamax) 35 mg Th@07 PO 12/06/20 07:00 12/27/20 06:35 Apixaban (Eliquis) 2.5 mg BID PO 12/05/20 21:00 01/01/21 09:31 Aspirin (Aspirin Chewable) 81 mg DAILY PO 11/17/20 09:00 01/01/21 09:32 Atorvastatin Calcium (Lipitor) 40 mg QPM PO 11/16/20 21:00 12/31/20 20:46 Benzonatate (Tessalon Perles) 100 mg TIDP PRN PO COUGH 12/09/20 14:50 12/10/20 22:36 Calcium/Vitamin D (Oscal D) 1,000 mg DAILY PO 12/05/20 09:00 01/01/21 09:32 Cefazolin Sodium 1 gm/Dextrose 50 ml @ 100 mls/hr Q8H IV 12/08/20 18:00 01/01/21 15:05 DC 01/01/21 09:31 Cefazolin Sodium 1 gm/Dextrose 50 ml @ 100 mls/hr Q8H IV 12/08/20 18:30 01/01/21 15:05 DC 01/01/21 09:31 Cefazolin Sodium/ Dextrose 2 gm/IV Miscellaneous Supplies 50 ml @ 75 mls/hr Q8H IV 11/19/20 18:00 12/08/20 10:54 DC 12/08/20 09:22 Cefepime HCl 1 gm/ Dextrose 50 ml @ 100 mls/hr Q12H IV 11/17/20 08:00 11/19/20 16:15 DC 11/19/20 08:47 Digoxin (Lanoxin) 0.125 mg DAILY PO 12/16/20 09:00 01/01/21 09:41 Digoxin (Lanoxin) 0.25 mg DAILY PO 12/15/20 09:00 12/15/20 10:47 DC 12/15/20 10:01 Digoxin (Lanoxin) 0.25 mg STAT STAT IV 12/14/20 08:50 12/14/20 08:51 DC 12/14/20 09:19 Docusate Sodium (Colace) 100 mg BID PO 11/17/20 09:00 12/31/20 09:31 Doxycycline Hyclate (Vibramycin) 100 mg BID@0600,1800 PO 12/10/20 18:00 12/14/20 09:39 DC 12/14/20 06:20 Doxycycline Hyclate 100 mg/ Dextrose 100 ml @ 100 mls/hr Q12H IV 12/09/20 12:00 12/10/20 12:51 DC 12/10/20 12:32 Folic Acid (Folic Acid) 1 mg DAILY PO 11/17/20 09:00 01/01/21 09:31 Furosemide (Lasix) 20 mg DAILY PO 11/17/20 09:00 11/18/20 08:16 DC Furosemide (Lasix) 20 mg DAILY PO 11/23/20 09:00 12/04/20 17:04 DC 12/04/20 09:33 Guaifenesin (Mucinex Tab Er) 600 mg BID PO 12/09/20 21:00 12/13/20 20:59 DC 12/13/20 09:38 Heparin Sodium (Heparin (Flush)) 200 units ASDIRECTED PRN IV SEE LABEL COMMENTS 11/19/20 18:50 01/01/21 05:33 Heparin Sodium (Heparin (Flush)) 200 units PICC IV 11/20/20 06:00 01/01/21 03:58 Home Med (Home Med List Complete!) ASDIRECTED XX 11/17/20 00:25 11/17/20 00:29 DC Iron (Niferex) 150 mg BID PO 12/04/20 21:00 01/01/21 09:31 Iron (Venofer) 250 mg DAILYPRN IV 12/02/20 08:15 12/02/20 08:27 DC Iron 250 mg/ Sodium Chloride 112.5 ml @ 90 mls/hr Q24H IV 12/02/20 11:00 12/03/20 12:14 DC 12/03/20 11:57 Lactated Ringer's 1,000 ml @ 100 mls/hr Q10H IV 12/10/20 13:40 12/10/20 23:39 DC 12/10/20 14:34 Levothyroxine Sodium (Synthroid) 100 mcg DAILY@0600 PO 11/17/20 06:00 01/01/21 05:40 Magnesium Hydroxide (Milk Of Magnesia) 30 ml BIDP PRN PO CONSTIPATION 12/16/20 12:45 12/28/20 10:11 Magnesium Hydroxide (Milk Of Magnesia) 30 ml DAILY PRN PO CONSTIPATION 11/17/20 03:05 12/16/20 12:43 DC 12/15/20 13:30 Metoprolol Tartrate (Lopressor) 12.5 mg BID PO 11/17/20 09:00 11/19/20 07:26 DC 11/18/20 09:37 Metoprolol Tartrate (Lopressor) 12.5 mg BID PO 11/21/20 09:00 12/29/20 20:35 Mirtazapine (Remeron) 15 mg QPM PO 11/16/20 21:00 12/31/20 20:46 Miscellaneous (Unresolved Clarification Entry) SEE LABEL COMMENTS DAILY XX 12/16/20 09:00 12/16/20 12:02 DC Montelukast Sodium (Singulair) 10 mg QHS PO 12/09/20 21:00 12/12/20 20:59 DC 12/11/20 20:21 Morphine Sulfate (Morphine Sulfate Inj) 2 mg Q30M PRN IV MODERATE PAIN (PS 5-7) 11/16/20 21:30 11/18/20 17:31 DC 11/18/20 17:31 Nitroglycerin (Nitrostat (1/ 150)) 0.4 mg ASDIRECTED SL 11/17/20 03:10 Ondansetron HCl (ZOFRAN INJection) 4 mg Q4HP PRN IV NAUSEA OR VOMITING 11/17/20 05:00 12/16/20 07:43 DC 12/14/20 08:06 Ondansetron HCl (ZOFRAN INJection) 4 mg Q6HP PRN IV NAUSEA OR VOMITING 12/23/20 07:55 12/31/20 10:15 Oxycodone HCl (Roxicodone, Oxyir) 5 mg Q6HP PRN PO PAIN LEVEL 7-10 11/18/20 19:05 11/29/20 11:31 DC 11/25/20 17:41 Polyethylene Glycol (Miralax) 1 pkt DAILY PO 12/15/20 15:25 12/29/20 09:49 Quetiapine Fumarate (SEROquel) 25 mg QPM PO 11/16/20 21:00 12/31/20 20:46 Sertraline HCl (Zoloft) 50 mg DAILY PO 11/17/20 09:00 01/01/21 09:31 Sodium Chloride (Nacl 0.9%) 1,770 ml BOLUS STAT IV 11/17/20 02:28 11/17/20 02:30 DC 11/17/20 03:00 Sodium Chloride (Saline Lock Flush) 10 ml ASDIRECTED PRN IV SEE LABEL COMMENTS 11/19/20 18:50 01/01/21 05:32 Sodium Chloride (Saline Lock Flush) 10 ml PICC IV 11/20/20 06:00 01/01/21 03:58 Torsemide (Demadex) 20 mg BID@0900,1700 PO 12/12/20 17:00 12/15/20 10:47 DC 12/15/20 10:03 Torsemide (Demadex) 20 mg DAILY PO 12/16/20 09:00 12/30/20 09:18 Torsemide (Demadex) 20 mg Q12H PO 12/04/20 18:00 12/09/20 10:56 DC 12/09/20 05:56 Torsemide (Demadex) 40 mg Q12H PO 12/09/20 18:00 12/10/20 13:42 DC 12/10/20 06:53 Tramadol HCl (Ultram) 50 mg TID PO 11/18/20 21:00 11/18/20 19:50 DC Tramadol/ Acetaminophen (Ultracet 37.5/ 325 Mg) 1 tab BID PO 11/19/20 21:00 12/31/20 12:30 DC 12/31/20 09:33 Tramadol/ Acetaminophen (Ultracet 37.5/ 325 Mg) 1 tab DAILY PO 01/01/21 09:00 01/01/21 09:32 Tramadol/ Acetaminophen (Ultracet 37.5/ 325 Mg) 1 tab TID PO 11/18/20 21:00 11/19/20 12:49 DC 11/19/20 08:48 Ursodiol (Actigall) 300 mg BID PO 11/17/20 09:00 12/05/20 12:11 DC 12/05/20 09:46 Vancomycin HCl 1000 mg/IV Miscellaneous Supplies 1 each/ Sodium Chloride 270 ml @ 270 mls/hr Q24H IV 11/18/20 06:00 11/19/20 16:15 DC 11/19/20 05:55 Allergies Coded Allergies: codeine (Verified Adverse Reaction, Mild, UPSET STOMACH, 07/03/20) tramadol (Verified Adverse Reaction, Mild, HEADACHE, 07/03/20) Adriane Servin MD Jan 01, 2021 17:11
[2021-01-01] MEDS: QUEtiapine FUMARATE 25 MG TAB PO SCH (20:16)
[2021-01-01] MEDS: ATORVASTATIN 20 MG TAB PO SCH (20:16)
[2021-01-01] MEDS: MIRTAZAPINE 15 MG TAB PO SCH (20:16)
[2021-01-02] MEDS: SODIUM CHLORIDE 0.9% INJ 10 ML SYR IV SCH ×2 (05:44→17:46)
[2021-01-02] MEDS: LEVOTHYROXINE 100MCG TABLET (0.1MG) PO SCH (05:44)
[2021-01-02 06:00] VITALS: BP 118/71
[2021-01-02 09:00] VITALS: BP 88/50
[2021-01-02] MEDS: METOPROLOL TART 12.5 MG PER 1/2 TAB PO SCH (09:00)
[2021-01-02] MEDS: MIRALAX *UNIT DOSE* 17GM PACKET PO SCH (09:00)
[2021-01-02] MEDS: TORSEMIDE 20 MG TAB PO SCH ×2 (09:00→09:25)
[2021-01-02] MEDS: ULTRACET TAB PO SCH (09:00)
[2021-01-02] MEDS: FOLIC ACID 1 MG TAB PO SCH (09:25)
[2021-01-02] MEDS: DOCUSATE SODIUM 100MG CAPSULE PO SCH ×2 (09:25→20:11)
[2021-01-02] MEDS: SERTRALINE HCL 50 MG TAB PO SCH (09:25)
[2021-01-02] MEDS: ASPIRIN 81 MG CHEW TABLET PO SCH (09:25)
[2021-01-02] MEDS: CALCIUM/VITAMIN D 500 MG TAB PO SCH (09:25)
[2021-01-02] MEDS: APIXABAN 2.5 MG TAB (ELIQUIS) PO SCH ×2 (09:25→20:11)
[2021-01-02] MEDS: DIGOXIN 0.125 MG TAB PO SCH (09:26)
[2021-01-02] MEDS: IRON POLYSAC (NIFEREX) 150 MG CAP PO SCH ×2 (09:30→20:11)
[2021-01-02 14:45] VITALS: BP 90/54
[2021-01-02 17:44] VITALS: BP 113/59
[2021-01-02 20:09] VITALS: BP 97/48
[2021-01-02] MEDS: ATORVASTATIN 20 MG TAB PO SCH (20:11)
[2021-01-02] MEDS: MIRTAZAPINE 15 MG TAB PO SCH (20:11)
[2021-01-02] MEDS: QUEtiapine FUMARATE 25 MG TAB PO SCH (20:11)
[2021-01-03 06:00] VITALS: BP 139/86
[2021-01-03] MEDS: SODIUM CHLORIDE 0.9% INJ 10 ML SYR IV SCH (06:28)
[2021-01-03] MEDS: ALENDRONATE 35MG TABLET PO SCH (06:28)
[2021-01-03] MEDS: LEVOTHYROXINE 100MCG TABLET (0.1MG) PO SCH (06:29)
[2021-01-03] MEDS: ULTRACET TAB PO SCH (09:00)
[2021-01-03] MEDS: DOCUSATE SODIUM 100MG CAPSULE PO SCH ×2 (09:00→19:58)
[2021-01-03] MEDS: MIRALAX *UNIT DOSE* 17GM PACKET PO SCH (09:00)
[2021-01-03] MEDS: FOLIC ACID 1 MG TAB PO SCH (09:15)
[2021-01-03] MEDS: ASPIRIN 81 MG CHEW TABLET PO SCH (09:15)
[2021-01-03] MEDS: IRON POLYSAC (NIFEREX) 150 MG CAP PO SCH ×2 (09:15→19:58)
[2021-01-03] MEDS: TORSEMIDE 20 MG TAB PO SCH (09:15)
[2021-01-03] MEDS: DIGOXIN 0.125 MG TAB PO SCH (09:15)
[2021-01-03] MEDS: CALCIUM/VITAMIN D 500 MG TAB PO SCH (09:16)
[2021-01-03] MEDS: SERTRALINE HCL 50 MG TAB PO SCH (09:17)
[2021-01-03] MEDS: APIXABAN 2.5 MG TAB (ELIQUIS) PO SCH ×2 (09:17→19:58)
[2021-01-03 09:21] VITALS: BP 116/66
--- NOTE | 2021-01-03 12:49 | CR ---
CONSULTATION DATE: 01/02/2021 Advanced wound care telemedicine consult. REASON FOR CONSULTATION: Wound care recommendations for a stage IV sacral pressure injury. CONSULTATION REQUESTED BY: Dr. Singleton An 85-year-old female, DO NOT RESUSCITATE, DO NOT INTUBATE status, has been hospitalized for a stage IV sacral pressure injury, which has initially been treated with wound vacuum-assisted closure (VAC) therapy. This wound has shown some improvement, and the patient is at the point a possible discharge to home with her daughter caring for her. Wound VAC therapy would be difficult for the patient at home according to the family and therefore I have been asked for alternative recommendations. PHYSICAL EXAMINATION: The wound measures 3.5 cm with a horizontal width of 1.5 cm and a depth of 1.0 cm. There is undermining at the 11 o'clock to the 6 o'clock position of 3.0 cm. TREATMENT RECOMMENDATIONS: Wound VAC therapy can be discontinued. Treatment recommendations would include Hydrofera Blue Classic placed in the wound covered with an Xtrasorb outer dressing. Skin prep should be utilized. A Roho cusion is mandatory for offloading when the patient is out of bed, and an alternating air mattress would also be helpful. This patient is at risk for pressure injuries involving the heels, etc., and daily skin checks are mandatory. Patient's diet should be supplemented with Ensure and Alberto if she not diabetic. Wound care telemedicine provides a visual assessment of a wound without the benefit of physical examination. It can assist with establishing a diagnosis and etiology. This allows for an initial treatment plan. As wounds often change, it may be necessary to modify the original care. Our recommendation is wound reassessment to monitor treatment. Failure to comply may result in nonhealing of the wound, possible complications, and/or poor outcome. The recommendations given will serve as treatment options. As I will not be following this patient, this care plan will require the attending physician to give and sign the orders. Upon discharge and/or transfer, outpatient followup can be arranged at our wound care center. [place]
[2021-01-03 13:40] VITALS: BP 115/59
[2021-01-03] MEDS: QUEtiapine FUMARATE 25 MG TAB PO SCH (19:58)
[2021-01-03] MEDS: MIRTAZAPINE 15 MG TAB PO SCH (19:58)
[2021-01-03] MEDS: ATORVASTATIN 20 MG TAB PO SCH (19:58)
[2021-01-04] MEDS: LEVOTHYROXINE 100MCG TABLET (0.1MG) PO SCH (05:46)
[2021-01-04 06:00] VITALS: BP 125/60
[2021-01-04] MEDS: MIRALAX *UNIT DOSE* 17GM PACKET PO SCH (09:00)
[2021-01-04] MEDS: DOCUSATE SODIUM 100MG CAPSULE PO SCH (09:00)
[2021-01-04 09:24] VITALS: BP 127/64
[2021-01-04] MEDS: CALCIUM/VITAMIN D 500 MG TAB PO SCH (09:24)
[2021-01-04] MEDS: TORSEMIDE 20 MG TAB PO SCH (09:24)
[2021-01-04] MEDS: DIGOXIN 0.125 MG TAB PO SCH (09:25)
[2021-01-04] MEDS: IRON POLYSAC (NIFEREX) 150 MG CAP PO SCH (09:25)
[2021-01-04] MEDS: FOLIC ACID 1 MG TAB PO SCH (09:25)
[2021-01-04] MEDS: SERTRALINE HCL 50 MG TAB PO SCH (09:25)
--- NOTE | 2021-01-04 10:03 | IPN ---
PROGRESS NOTE DATE: 11/17/2020 SUBJECTIVE: Earlene is doing very well. She is sitting in her chair, smiling. She is anxious to have her Avila catheter removed. She would really like to go home. She is waiting for her daughter to take her home. Her granddaughter is expecting a child, so her daughter has been busy with childcare and she just came back from [place]. She had minimal pain in her sacral decubitus ulcer. Dr. Wiley did another consultation on 01/03 and would VAC therapy was discontinued. Treatment was to continue with Hydrofera blue in the wound with an XtraSorb ultra dressing. A Roho cushion is mandatory for off loading when the patient is out of bed and alternating mattress is helpful. OBJECTIVE: On physical examination, the wound measures 3.5 cm x3 cm with a 1 cm depth and there is undermining about 3 cm all around the wound. There is granulation tissue. There is no surrounding cellulitis or purulence. Temperature is 98.7, pulse 89, respirations 17, blood pressure 115/59, O2 saturation 97% on room air. Heart: Normal S1, S2 with a systolic ejection murmur 2/6 unchanged. Chest: Scar well healed. Lungs: Clear. No wheezes, rales or rhonchi. Abdomen: Soft, nontender. Extremities: No clubbing, cyanosis or edema. No calf tenderness. LABORATORY DATA: White count 3.9, hemoglobin 7.8, hematocrit 22.9, platelets 63. Sodium 140, potassium 4.5, chloride 104, bicarbonate 34, BUN 15, creatinine 0.87, glucose 74, calcium 7.4, phosphorus 2.4, magnesium 2.1. Last blood cultures were done on 12/14, no growth after 5 days. Last dose of antibiotic was on 01/01, IV cephazolin 2 gm every 8 hours, was discontinued after 6 weeks of therapy. IMPRESSION: 1. Staphylococcus aureus bacteremia with presumptive endocarditis, treated with six weeks of IV cefazolin. The patient stopped antibiotics 01/01. She will have surveillance blood cultures done in the next couple of days along with complete blood count (CBC), ESR, C-reactive protein. 2. Sacral decubitus ulcer with slow healing. Follows with Dr. Wiley who change the wound VAC to Hydrofera blue dressings. There is no sign of infection of the decubitus stage IV ulcer. 3. Pancytopenia. I am concerned that this patient may have liver cirrhosis. Her CT scan abdomen and pelvis shows calcification of both liver and spleen, that needs to be further worked up as an outpatient. Liver profile is normal differential may be myelodysplastic syndrome. PLAN: Antibiotics were discontinued on 01/01. Repeat blood cultures in next couple of days. Complete blood count (CBC) and C-reactive protein. Pancytopenia needs to be followed up with hematology/oncology. L MTDD
[2021-01-04 10:57] LABS: BASO % 0.3 % (0.0-1.0); EOS % 0.5 % (0.0-3.0); HEMATOCRIT 25.6 % (36.0-47.0); HEMOGLOBIN 8.1 g/dl (12.0-15.5); LYMPH # 0.6 10^3/uL (1.5-5.0); LYMPH % 16.4 % (24.0-44.0); MEAN CORPUSCULAR HEMOGLOBIN 32.7 pg (27.0-33.0); MEAN CORPUSCULAR HGB CONC 31.6 g/dl (32.0-36.5); MEAN CORPUSCULAR VOLUME 103.2 fl (80.0-96.0); MONO # 0.5 10^3/uL (0.0-0.8); MONO % 12.7 % (2.0-8.0); NEUTROPHILS # 2.7 10^3/uL (1.5-8.5); NEUTROPHILS % 69.8 % (36.0-66.0); RED BLOOD COUNT 2.48 10^6/uL (4.00-5.40); WHITE BLOOD COUNT 3.9 10^3/uL (4.0-10.0)
[2021-01-04 10:58] LABS: PLATELET COUNT, AUTOMATED 92 10^3/uL (150-450)
[2021-01-04 11:18] LABS: ERYTHROCYTE SEDIMENTATION RATE 56 mm/hr (0-30)
[2021-01-04 11:35] LABS: FOLATE > 24.0 NG/ML; VITAMIN B12 LEVEL 681 PG/ML
[2021-01-04] MEDS: APIXABAN 2.5 MG TAB (ELIQUIS) PO SCH (11:50)
[2021-01-04] MEDS ORDERED: ALEN35TA56 PO (12:01)
[2021-01-04] MEDS ORDERED: ACET1TAB55 PO (12:01)
[2021-01-04] MEDS ORDERED: MIRA1POW3 PO (12:01)
[2021-01-04] MEDS ORDERED: CALCD50TA PO (12:01)
[2021-01-04] MEDS ORDERED: NIFE15CA PO (12:01)
[2021-01-04] MEDS ORDERED: DIGO0.123 PO (12:01)
[2021-01-04] MEDS ORDERED: ELIQ2.5T PO (12:02)
[2021-01-04 12:21] LABS: ALBUMIN 1.9 GM/DL (3.2-5.2); ALT/SGPT 8 U/L (12-78); BILIRUBIN,TOTAL 0.4 MG/DL (0.2-1.0); BLOOD UREA NITROGEN 12 MG/DL (7-18); C REACTIVE PROTEIN QUANTITATIV 0.72 MG/DL (0.00-0.30); CARBON DIOXIDE LEVEL 34 MEQ/L (21-32); CHLORIDE LEVEL 105 MEQ/L (98-107); CREATININE FOR GFR 0.92 MG/DL (0.55-1.30); GLOMERULAR FILTRATION RATE > 60.0 (>32); GLUCOSE, FASTING 87 MG/DL (70-100); POTASSIUM SERUM 4.1 MEQ/L (3.5-5.1); SODIUM LEVEL 140 MEQ/L (136-145); TOTAL PROTEIN 5.4 GM/DL (6.4-8.2)
[2021-01-04] MEDS ORDERED: FLUBLOK(EGG FREE)(QUAD)INFLUENZA VACC 0.5ML SYRINGE 18YRS & OLDER IM ONE (12:55)
[2021-01-04] MEDS ORDERED: SUCR1SS PO (16:07)
--- NOTE | 2021-01-04 19:46 | DS.PDOC ---
Discharge Summary General Date of Admission Nov 17, 2020 at 03:03 Date of Discharge 01/04/21 Attending Physician: Adriane Servin MD Discharge Summary HISTORY OF PRESENT ILLNESS: This is an 85 y/o female with a pmh of cad s/p CABG, a-fib s/p pacer, chf, htn, copd, gout, hypothyroidism, depression who reports to our ED on 11/16 with a cc of right hip pain after a fall she suffered 4 days ago. Patient states that 4 days ago she dropped a pill on the ground in her bathroom, and concerned that her granddaughter would find it, attempted to bend down to pick it up. Patient states that while reaching for it on the ground, she lost her balance and fell onto her right side. Patient states that she was able to get up and walk post fall. Unfortunately, the next day, when trying to get out of the bath tub, she slipped and fell yet again onto the right side again. Patient has been having difficulty ambulating and pain in the right thigh since. Patient recently underwent a stay at [facility] for approx 60 days in which she was discharged on 10/31. During this stay, patient underwent triple bypass coronary artery grafting, unspec cardiac valve replacement, and pacemaker placement. According to patient and daughter, this stay was complicated by many complications such as hospital acquired pneumonia and a large sacral decubitus ulcer. Patient underwent wound debridement of sacral decubitus yesterday 11/16. Imaging performed in our ED today in investigation of before mentioned right hip injury showing possible gas and infection in sacral decubitus wound as well as bilateral lung infiltrates. Patient also meeting sepsis criteria with tmax of 100.9, transient bouts of tachycardia up to 90s, hypoxia of 84 on RA, hypotension with lowest sbp of 89 and leukocytosis of 10.8. Also notable is a hemoglobin of 7. Patient states that besides the pain in her right hip, she feels "pretty good." Patient tells me that she has just felt rather fatigued as of late, and has had somewhat of a poor appetite. Patient states that she has noticed some trace edema to her b/l feet. Patient tells me she has not had any explicit fevers, but does currently feel warm. Patient also endorses some episodes of transient sob. Patient, at the time of my exam, denies chills, chest pain, uri type symptoms, abd pain, n/v/d/c, cough, calf pain, syncope, dizziness. 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 Infectious disease was involved and she completed a course of cefazolin on 12/31/2020. The patient refused further workup of crepitus including BLAYNE. She also was treated for a right buttocks decubitus ul cer, requiring wound VAC and advanced wound care consultation treatment. She was assessed by multiple specialists including her vascular team and later diagnosed with a left lower extremity DVT, provoked. The patient was found to have an occult blood positive in November; however, no decision was made to stop eliquis or aspirin at that time. I did not see any mentioning of investigating the cause in notes. H&H has declined, wax and wane since then and repeat occult blood was performed recently and later came back positive. The patient has pancytopenia which will require additional workup o/p; however, with positive occult blood , we were concerned for GI bleed on eliquis and aspirin. [facility] of the positive occult blood and risk of being on eliquis and aspirin. Oxygen was given for further investigation; however, the patient denied wanting any scopes or consultation services to see her. She only wanted to be discharged home. She decided on being on only eliquis vs. being on both eliquis nad ASA. Risks including bleeding and were stated to the jaya turner if she remained on blood thinner. Her daughter ultimately decided to continue to care for her mother 20/10 and on 01/04/2021 the patient was discharged home with her. She'll be following up with Dr. Barrera and her primary care doctor after discharge. At the time of discharge the patient denied any chest pain, shortness of breath, fevers, chills, nausea, vomiting. PAST MEDICAL HISTORY: 1. [See HPI PAST SURGICAL HISTORY: 1. [B/l cataract removal with lens implants]. 2. [CABG]. 3. [Unspec heart valve replacement 4. Pacemaker placement 5. Left TKA 6. Right arm ORIF]. SOCIAL HISTORY: Tobacco use:[Denies] ETOH: [Denies] Illicit drug use: [Denies] FAMILY HISTORY: Reviewed - none pertinent Physical Examination VS: Please see below General: NAD, sitting up at bedside chair, engaging Head/Neck/Throat: Trachea midline, mucous membranes moist Eyes: Sclera anicteric, no erythema or discharge appreciated bilaterally Thorax: Normal respiratory effort on room air, lungs clear to auscultation bilaterally, no wheezes/rales/rhonchi Cardiovascular: Normal rate, regular rhythm, normal S1, S2; radial and pedal pulses 2+ Abdomen: Bowel sounds present, soft/nontender/nondistended Genitourinary: No CVA tenderness, no Avila in place BACk: Right buttocks decub with wound vac in place, appears clean, no erythema Musculoskeletal: Moving all extremities, no edema Skin: Warm, dry Neurologic: AAOx3, speech fluent and goal-directed, no focal deficits, grossly intact Assessment: PMHx of CAD s/p CABG (Completed on October 2020), A. fib, s/p PM, AVR, CHF, HTN, COPD, Gout, Hypothyroidism, Depression, who presented to the ER on 11/16 complaints of right hip pain after she had fallen 4 days prior treated for MSSA bacteremia presumed endocarditis, slow healing sacral decubitus ulcer and below. 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 Pancytopenia -H/H low but not transfusable level at this time, no s/s of bleeding -iron low and supplemented, B12/folate wnl, reordered and occult blood test. -Discussed with patient in great detail. She refuses GI or surgical consultation, refuses endoscopy or colonoscopy. She wishes to remain on eliquis only and stop aspirin. Risk of bleeding and were discussed in great detail; however, patient wished to continue anticoagulation. Her daughter was updated. -Pancytopenia should be evaluated further outpatient by her primary care provider, hematology consult if needed. #LLE DVT, provoked -Per vascular team determined high risk for progression and possibly pulmonary embolism. -Currently on Eliquis 2.5 mg twice daily was recommended. Risks and benefits were discussed with the patient. -Per prior notes from hospitalist, patient wants to continue for now and have further discussion with her daughter when she returns from [facility] -Discussed anticoagulation again with risk of bleeding. 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 Infectious disease team was following during hospitalization. -Patient refused further work-up for endocarditis, and declined BLAYNE. #Heart failure with preserved ejection fraction -No signs of acute exacerbation. -Stopped BB due to hypotension -lasix #Right buttocks sacral decubitus ulcer -Wound VAC in place -Dr. Wiley following #Hypothyroidism -Continue with levothyroxine #Hypotension- resolved #Hyperlipidemia -Continue with atorvastatin #Mood disorder -Continue with sertraline and quetiapine #WES -Iron supplementation #DVT prophylaxis - Eliquis RESOLVED: #Atrial fibrillation with rapid ventricular response #Bronchitis DISPOSITION: To be discharged with daughter today. TIME SPENT ON DISCHARGE: 35 minutes. Vital Signs/I&Os Vital Signs Date Time Temp Pulse Resp B/P (MAP) Pulse Ox O2 Delivery O2 Flow Rate FiO2 01/04/21 09:25 83 01/04/21 09:24 127/64 (85) 01/04/21 06:00 98.1 17 96 Room Air I&O- Last 24 Hours up to 6 AM 01/04/21 06:00 Intake Total 300 ml Output Total 1225 ml Balance -925 ml Laboratory Data Labs 24H Laboratory Tests 2 01/04/21 10:40: Immature Granulocyte % (Auto) 0.3, Neutrophils (%) (Auto) 69.8H, Lymphocytes (%) (Auto) 16.4L, Monocytes (%) (Auto) 12.7H, Eosinophils (%) (Auto) 0.5, Basophils (%) (Auto) 0.3, Neutrophils # (Auto) 2.7, Lymphocytes # (Auto) 0.6L, Monocytes # (Auto) 0.5, Eosinophils # (Auto) 0.0, Basophils # (Auto) 0.0, Nucleated Red Blood Cells % (auto) 0.0, Immature Platelet Fraction 11.1H, Erythrocyte Sedimentation Rate 56H, Anion Gap 1L, Glomerular Filtration Rate > 60.0, Calcium Level 8.0L, Total Bilirubin 0.4, Aspartate Amino Transf (AST/SGOT) 18, Alanine Aminotransferase (ALT/SGPT) 8L, Alkaline Phosphatase 140H, C-Reactive Protein, Quantitative 0.72H, Total Protein 5.4L, Albumin 1.9L, Albumin/Globulin Ratio 0.5L, Vitamin B12 Level 681, Folate > 24.0 CBC/BMP Laboratory Tests 01/04/21 10:40 Microbiology Microbiology 01/04/21 Blood Culture, Received Pending 01/03/21 Stool Occult Blood (VICKEY) - Final, Complete Discharge Medications Scheduled Alendronate Sodium (Alendronate Sodium) 35 Mg Tablet, 35 MG PO Th@07 Apixaban (Eliquis) 2.5 Mg Tablet, 2.5 MG PO BID Atorvastatin Calcium (Atorvastatin Calcium) 40 Mg Tablet, 40 MG PO QPM, (Reported) Calcium/Vitamin D (Calcium 500-Vit D3 200 Tablet) 1 Each Tablet, 1,000 MG PO DA FAMILIA Digoxin (Digoxin) 125 Mcg Tablet, 0.125 MG PO DAILY Docusate Sodium (Stool Softener) 100 Mg Capsule, 100 MG PO DAILY, (Reported) Ferrous Sulfate (Ferrous Sulfate) 220 Mg/5 Ml Elixir, 5 MG PO BID, (Reported) Folic Acid (Folic Acid) 1 Mg Tablet, 1 MG PO DAILY, (Reported) Furosemide (Furosemide) 20 Mg Tablet, 20 MG PO DAILY, (Reported) Iron Ag,Ps/C/Fa6/B12/Zn/SA/Sto (Niferex Tablet) 1 Each Tablet, 150 MG PO BID Levothyroxine Sodium (Levothyroxine Sodium) 100 Mcg Tablet, 100 MCG PO DAILY, (Reported) Mirtazapine (Remeron) 15 Mg Tablet, 15 MG PO QPM, (Reported) Nitroglycerin (Nitroglycerin) 0.4 Mg Tab.subl, 0.4 MG SL ASDIRECTED for chest p ain, (Reported) 1st sign of attack; may repeat every 5 mins; if pain persists after 3 in 15 min, medical attention is recommended Quetiapine Fumarate (Quetiapine Fumarate) 25 Mg Tablet, 25 MG PO QPM, (Reported) Sertraline Hcl (Sertraline HCl) 50 Mg Tablet, 50 MG PO DAILY, (Reported) Sucralfate (Carafate) 1 Gm/10 Ml Oral.susp, 10 ML PO BID before food Ursodiol (Ursodiol) 300 Mg Capsule, 300 MG PO BID, (Reported) Scheduled PRN Acetaminophen (Acetaminophen) 325 Mg Tablet, 650 MG PO Q6HP PRN for PAIN LEVEL 1-6 Ipratropium/Albuterol Sulfate (Iprat-Albut 0.5-3(2.5) mg/3 ml) 3 Ml Ampul.neb, 3 ML NEB BID PRN for SHORTNESS OF BREATH, (Reported) Melatonin (Melatonin) 3 Mg Tab.rapdis, 3 MG PO QPM PRN for SLEEP, (Reported) Polyethylene Glycol 3350 (Miralax) 17 Gm Powd.pack, 1 PKT PO DAILYPRN PRN for CONSTIPATION Allergies Coded Allergies: codeine (Verified Adverse Reaction, Mild, UPSET STOMACH, 07/03/20) tramadol (Verified Adverse Reaction, Mild, HEADACHE, 07/03/20) Adriane Servin MD Jan 04, 2021 19:46
--- NOTE | 2021-01-05 13:02 | IPN ---
PROGRESS NOTE DATE: 01/04/2021 SUBJECTIVE: Earlene is very excited. She is getting changed and she is being picked up to go home today. She denies any complaints. No fever or chills, no nausea, vomiting or diarrhea. LABS: White count 3.9, hemoglobin 8.1, hematocrit neutrophils, 15% lymphocytes, 12% monocytes. ESR 56. Sodium 140, potassium chloride 105, bicarb 34, BUN 12, AST 18, ALT 8, alk phos Blood culture was drawn today and was pending. IMPRESSION: 1. Staph aureus bacteremia with presumptive endocarditis, treated with six weeks of IV Cephazolin. 2. Sacral decubitus ulcer, stage IV, with slow healing. Will follow up with Dr. Wiley. 3. Pancytopenia. Need to be followed up with hematology. Will need follow up CBC next week. Blood culture, another set. [facility]
== END 2021-01-04 14:00 | disposition home health service (06) | DRG 871 ==
LOC: M ED 16:54 → M ED INP 11-17 03:03 → M PCU 11-17 08:09 → M MSPAV 11-22 10:30 → M ICU 12-14 08:55 → M PCU 12-16 21:56 → M MSPAV 12-17 19:20
PROVIDERS: ADMIT Internal Medicine; ATTEND Internal Medicine
PROC: 30233N1 Transfusion of Nonautologous Red Blood Cells into Peripheral Vein, Percutaneous Approach (ICD-10-PCS; 2020-11-19)
PROC: 02HV33Z Insertion of Infusion Device into Superior Vena Cava, Percutaneous Approach (ICD-10-PCS; principal; 2020-11-19 17:30)
DX: A41.01 Sepsis due to Methicillin susceptible Staphylococcus aureus (principal); L89.154 Pressure ulcer of sacral region, stage 4; I33.9 Acute and subacute endocarditis, unspecified; N17.9 Acute kidney failure, unspecified; I50.32 Chronic diastolic (congestive) heart failure; I82.442 Acute embolism and thrombosis of left tibial vein; D61.818 Other pancytopenia; J90 Pleural effusion, not elsewhere classified; I13.0 Hypertensive heart and chronic kidney disease with heart failure and stage 1 through stage 4 chronic kidney disease, or unspecified chronic kidney disease; Z66 Do not resuscitate; D53.9 Nutritional anemia, unspecified; F32.9 Major depressive disorder, single episode, unspecified; R29.6 Repeated falls; I25.10 Atherosclerotic heart disease of native coronary artery without angina pectoris; E78.5 Hyperlipidemia, unspecified; R65.20 Severe sepsis without septic shock; I48.91 Unspecified atrial fibrillation; M10.9 Gout, unspecified; K59.00 Constipation, unspecified; F41.9 Anxiety disorder, unspecified; K44.9 Diaphragmatic hernia without obstruction or gangrene; E03.9 Hypothyroidism, unspecified; K57.30 Diverticulosis of large intestine without perforation or abscess without bleeding; D69.6 Thrombocytopenia, unspecified; D50.9 Iron deficiency anemia, unspecified; N18.9 Chronic kidney disease, unspecified; Z95.3 Presence of xenogenic heart valve; Z20.822 Contact with and (suspected) exposure to COVID-19; R09.02 Hypoxemia; Z95.0 Presence of cardiac pacemaker; J44.9 Chronic obstructive pulmonary disease, unspecified; Z95.1 Presence of aortocoronary bypass graft; Z98.41 Cataract extraction status, right eye; Z98.42 Cataract extraction status, left eye; Z96.652 Presence of left artificial knee joint; Z96.1 Presence of intraocular lens; Z79.82 Long term (current) use of aspirin; Z79.899 Other long term (current) drug therapy; Z88.5 Allergy status to narcotic agent; S70.01XA Contusion of right hip, initial encounter; W18.2XXA Fall in (into) shower or empty bathtub, initial encounter; Y92.012 Bathroom of single-family (private) house as the place of occurrence of the external cause; Y99.8 Other external cause status; Y93.E1 Activity, personal bathing and showering

== ENCOUNTER → 2021-01-28 | Outpatient (CLI) | payer MEDICARE ==
[~2021-01-28] MED LIST changes: +ACET1TAB55 PO; +ALEN35TA56 PO; +ASPI81CH33 PO; +ATOR40TA75 PO; +CALCD50TA PO; +DIGO0.123 PO; +DOCU-153 PO; +FERR5ELX PO; +FOLI1TAB11 PO; +IPRA0.00 NEB; +LEVO100T5 PO; +MELA3TAB49 PO; +METO1TAB87 PO; +MIRA1POW3 PO; +MIRT-62 PO; +MIRT1TAB15 PO; +NIFE15CA PO; +NITR0.4S14 SL; +QUET1TAB17 PO; +SERT-141 PO; +SUCR1SS PO; +URSO300C3 PO
[2021-01-28 16:25] LABS: BASO % 0.2 % (0.0-1.0); EOS % 0.2 % (0.0-3.0); HEMATOCRIT 27.8 % (36.0-47.0); LYMPH # 0.5 10^3/uL (1.5-5.0); LYMPH % 8.4 % (24.0-44.0); MEAN CORPUSCULAR HEMOGLOBIN 32.4 pg (27.0-33.0); MEAN CORPUSCULAR HGB CONC 32.4 g/dl (32.0-36.5); MONO # 0.5 10^3/uL (0.0-0.8); MONO % 8.3 % (2.0-8.0); NEUTROPHILS # 5.1 10^3/uL (1.5-8.5); NEUTROPHILS % 82.4 % (36.0-66.0); RED BLOOD COUNT 2.78 10^6/uL (4.00-5.40); WHITE BLOOD COUNT 6.2 10^3/uL (4.0-10.0)
[2021-01-28 16:27] LABS: PLATELET COUNT, AUTOMATED 79 10^3/uL (150-450)
== END ==
LOC: M WUC 15:08
PROVIDERS: ATTEND Family Medicine
DX: I38 Endocarditis, valve unspecified (principal); D61.818 Other pancytopenia

== ENCOUNTER → 2021-04-01 | Outpatient (CLI) | payer MEDICARE ==
[2021-04-01 17:09] LABS: BASO % 0.1 % (0.0-1.0); EOS % 0.3 % (0.0-3.0); HEMATOCRIT 30.6 % (36.0-47.0); HEMOGLOBIN 9.5 g/dl (12.0-15.5); LYMPH % 12.5 % (24.0-44.0); MEAN CORPUSCULAR HEMOGLOBIN 31.4 pg (27.0-33.0); MONO # 0.7 10^3/uL (0.0-0.8); MONO % 9.4 % (2.0-8.0); NEUTROPHILS # 6.1 10^3/uL (1.5-8.5); NEUTROPHILS % 77.2 % (36.0-66.0); PLATELET COUNT, AUTOMATED 106 10^3/uL (150-450); RED BLOOD COUNT 3.03 10^6/uL (4.00-5.40); WHITE BLOOD COUNT 7.8 10^3/uL (4.0-10.0)
== END ==
LOC: M WUC 13:30
PROVIDERS: ATTEND Family Medicine
DX: D61.818 Other pancytopenia (principal)

== ENCOUNTER 2021-04-12 12:39 | Emergency (ER) | payer MEDICARE ==
[~2021-04-12] VITALS: Ht 149.9 cm; Wt 57.7 kg
[~2021-04-12 12:39] MED LIST changes: -LEVO500T3 PO; +LEVO500T4 PO
[2021-04-12] MEDS ORDERED: NS 1,000 ML IV SCH (13:40)
[2021-04-12 14:07] LABS: VENOUS BASE EXCESS 3.7 (-2.0-2.0); VENOUS HCO3 30.2 MEQ/L (23.0-27.0); VENOUS PARTIAL PRESSURE CO2 55.7 mmHg (38.0-50.0); VENOUS PARTIAL PRESSURE O2 35.3 mmHg (30.0-50.0); VENOUS PH 7.352 UNITS (7.330-7.430); VENOUS STANDARD HCO3 27.1 MEQ/L; VENOUS TOTAL CO2 31.9 MEQ/L (24.0-28.0)
[2021-04-12 14:08] LABS: BASO % 0.1 % (0.0-1.0); EOS % 0.4 % (0.0-3.0); HEMATOCRIT 29.2 % (36.0-47.0); HEMOGLOBIN 9.5 g/dl (12.0-15.5); LYMPH # 0.6 10^3/uL (1.5-5.0); LYMPH % 8.2 % (24.0-44.0); MEAN CORPUSCULAR HEMOGLOBIN 31.9 pg (27.0-33.0); MEAN CORPUSCULAR HGB CONC 32.5 g/dl (32.0-36.5); MONO # 0.8 10^3/uL (0.0-0.8); MONO % 10.6 % (2.0-8.0); NEUTROPHILS % 80.2 % (36.0-66.0); PLATELET COUNT, AUTOMATED 105 10^3/uL (150-450); RED BLOOD COUNT 2.98 10^6/uL (4.00-5.40); WHITE BLOOD COUNT 7.5 10^3/uL (4.0-10.0)
[2021-04-12 15:22] LABS: ALBUMIN 3.4 GM/DL (3.2-5.2); BILIRUBIN,DIRECT 0.2 MG/DL (0.0-0.2); CALCIUM LEVEL 9.1 MG/DL (8.8-10.2); POTASSIUM SERUM 4.3 MEQ/L (3.5-5.1); THYROID STIMULATING HORMONE 4.1 uIU/ML (0.358-3.740); TOTAL PROTEIN 6.8 GM/DL (6.4-8.2)
[2021-04-12 15:47] LABS: BILIRUBIN,TOTAL 0.3 MG/DL (0.2-1.0); DIGOXIN LEVEL 0.1 NG/ML (0.5-2.0)
[2021-04-12 17:21] VITALS: BP 142/62
== END 2021-04-12 17:47 | disposition home or self-care (01) ==
LOC: M ED 12:39
DX: R53.83 Other fatigue (principal); R05.3 Chronic cough; I48.91 Unspecified atrial fibrillation; I11.0 Hypertensive heart disease with heart failure; E03.9 Hypothyroidism, unspecified; Z86.718 Personal history of other venous thrombosis and embolism; Z88.5 Allergy status to narcotic agent; Z79.899 Other long term (current) drug therapy; Z79.01 Long term (current) use of anticoagulants

== ENCOUNTER 2021-05-14 10:40 | Inpatient (IN) | payer MEDICARE ==
[~2021-05-14] VITALS: Ht 157.5 cm; Wt 56.5 kg
[2021-05-14] MEDS ORDERED: PERCOCET 5MG/325MG TAB PO ONE (12:30)
[2021-05-14] MEDS ORDERED: NS 1,000 ML IV ONE (15:45)
[2021-05-14 16:15] LABS: BASO % 0.2 % (0.0-1.0); EOS % 0.3 % (0.0-3.0); HEMATOCRIT 28.4 % (36.0-47.0); HEMOGLOBIN 9.1 g/dl (12.0-15.5); LYMPH # 0.8 10^3/uL (1.5-5.0); LYMPH % 11.7 % (24.0-44.0); MEAN CORPUSCULAR HEMOGLOBIN 31.2 pg (27.0-33.0); MEAN CORPUSCULAR VOLUME 97.3 fl (80.0-96.0); MONO # 0.7 10^3/uL (0.0-0.8); MONO % 10.3 % (2.0-8.0); NEUTROPHILS # 5.1 10^3/uL (1.5-8.5); NEUTROPHILS % 77.2 % (36.0-66.0); PLATELET COUNT, AUTOMATED 100 10^3/uL (150-450); RED BLOOD COUNT 2.92 10^6/uL (4.00-5.40); WHITE BLOOD COUNT 6.6 10^3/uL (4.0-10.0)
[2021-05-14 16:43] LABS: ERYTHROCYTE SEDIMENTATION RATE 63 mm/hr (0-30)
[2021-05-14 16:45] LABS: ALBUMIN 3.5 GM/DL (3.2-5.2); BILIRUBIN,DIRECT 0.1 MG/DL (0.0-0.2); BILIRUBIN,TOTAL 0.4 MG/DL (0.2-1.0); C REACTIVE PROTEIN QUANTITATIV 1.45 MG/DL (0.00-0.30); CALCIUM LEVEL 8.8 MG/DL (8.8-10.2); CREATININE FOR GFR 1.19 MG/DL (0.55-1.30); GLOMERULAR FILTRATION RATE 45.8 (>32); POTASSIUM SERUM 4.6 MEQ/L (3.5-5.1); TOTAL PROTEIN 6.9 GM/DL (6.4-8.2)
[2021-05-14 20:19] LABS: RSV AMPLIFICATION NEGATIVE (NEGATIVE)
[2021-05-14] MEDS ORDERED: SPIR-10 PO (21:29)
[2021-05-14] MEDS ORDERED: HOME MED LIST COMPLETE! XX SCH (21:30)
[2021-05-14] MEDS ORDERED: HYDROMORPHONE HCL 0.5 MG/ 0.5 ML SYRINGE (J1170 PER 1) IV PRN (22:55)
[2021-05-14] MEDS ORDERED: NITROGLYCERIN 0.4 MG SUBL TABLET SL PRN (22:55)
[2021-05-14] MEDS ORDERED: KETOROLAC 30 MG/ML 1ML VIAL IV ONE (23:20)
[2021-05-14 23:47] VITALS: BP 135/63
[2021-05-15] MEDS: ATORVASTATIN 20 MG TAB PO SCH ×2 (00:02→20:57)
[2021-05-15] MEDS: MIRTAZAPINE 7.5MG PER 1/2 TABLET PO SCH ×3 (00:08→20:57)
[2021-05-15 04:00] VITALS: BP 101/54
[2021-05-15 05:34] LABS: HEMATOCRIT 24.6 % (36.0-47.0); HEMOGLOBIN 7.8 g/dl (12.0-15.5); MEAN CORPUSCULAR HEMOGLOBIN 31.2 pg (27.0-33.0); MEAN CORPUSCULAR HGB CONC 31.7 g/dl (32.0-36.5); MEAN CORPUSCULAR VOLUME 98.4 fl (80.0-96.0); WHITE BLOOD COUNT 4.1 10^3/uL (4.0-10.0)
[2021-05-15] MEDS: LEVOTHYROXINE 100MCG TABLET (0.1MG) PO SCH (05:56)
[2021-05-15 05:57] LABS: PLATELET COUNT, AUTOMATED 83 10^3/uL (150-450)
[2021-05-15 07:33] VITALS: BP 111/53
[2021-05-15] MEDS: SPIRONOLACTONE 25 MG TAB PO SCH (09:41)
[2021-05-15] MEDS: SERTRALINE HCL 50 MG TAB PO SCH (09:41)
[2021-05-15] MEDS: FUROSEMIDE 20 MG TAB PO SCH (09:41)
[2021-05-15] MEDS: DIGOXIN 0.125 MG TAB PO SCH (09:41)
[2021-05-15 12:00] VITALS: BP 104/54
[2021-05-15] MEDS: ACETAMINOPHEN 500 MG TAB PO SCH ×2 (12:49→18:26)
[2021-05-15 19:45] VITALS: BP 106/58
[2021-05-16] MEDS: ACETAMINOPHEN 500 MG TAB PO SCH ×3 (00:30→12:11)
[2021-05-16 03:53] LABS: HEMATOCRIT 25.4 % (36.0-47.0); HEMOGLOBIN 7.9 g/dl (12.0-15.5); MEAN CORPUSCULAR HEMOGLOBIN 30.5 pg (27.0-33.0); MEAN CORPUSCULAR HGB CONC 31.1 g/dl (32.0-36.5); MEAN CORPUSCULAR VOLUME 98.1 fl (80.0-96.0); PLATELET COUNT, AUTOMATED 91 10^3/uL (150-450); RED BLOOD COUNT 2.59 10^6/uL (4.00-5.40); WHITE BLOOD COUNT 4.2 10^3/uL (4.0-10.0)
[2021-05-16 04:15] LABS: CALCIUM LEVEL 8.7 MG/DL (8.8-10.2); CREATININE FOR GFR 1.24 MG/DL (0.55-1.30); GLOMERULAR FILTRATION RATE 43.7 (>32); MAGNESIUM LEVEL 2.1 MG/DL (1.8-2.4); PHOSPHORUS LEVEL 4.3 MG/DL (2.5-4.9); POTASSIUM SERUM 4.8 MEQ/L (3.5-5.1)
[2021-05-16 05:20] VITALS: BP 135/70
[2021-05-16] MEDS: LEVOTHYROXINE 100MCG TABLET (0.1MG) PO SCH (05:37)
[2021-05-16 06:54] VITALS: BP 127/67
[2021-05-16] MEDS: DIGOXIN 0.125 MG TAB PO SCH (08:54)
[2021-05-16] MEDS: SERTRALINE HCL 50 MG TAB PO SCH (08:55)
[2021-05-16] MEDS: SPIRONOLACTONE 25 MG TAB PO SCH (08:55)
[2021-05-16] MEDS: FUROSEMIDE 20 MG TAB PO SCH (08:55)
[2021-05-16] MEDS ORDERED: ACET-683 PO (12:19)
== END 2021-05-16 13:39 | disposition home health service (06) | DRG 605 ==
LOC: M ED 10:40 → M ED INP 22:54 → M PCU 23:30 → M MSPAV 05-16 06:32
PROVIDERS: ADMIT Internal Medicine; ATTEND Internal Medicine
DX: S70.02XA Contusion of left hip, initial encounter (principal); I50.32 Chronic diastolic (congestive) heart failure; I48.91 Unspecified atrial fibrillation; M70.62 Trochanteric bursitis, left hip; M11.252 Other chondrocalcinosis, left hip; D64.9 Anemia, unspecified; D69.6 Thrombocytopenia, unspecified; M16.12 Unilateral primary osteoarthritis, left hip; J44.9 Chronic obstructive pulmonary disease, unspecified; E03.9 Hypothyroidism, unspecified; Z20.822 Contact with and (suspected) exposure to COVID-19; Z86.718 Personal history of other venous thrombosis and embolism; Z95.2 Presence of prosthetic heart valve; Z95.0 Presence of cardiac pacemaker; W08.XXXA Fall from other furniture, initial encounter; Z96.652 Presence of left artificial knee joint; Y92.009 Unspecified place in unspecified non-institutional (private) residence as the place of occurrence of the external cause; Y93.89 Activity, other specified; Z88.5 Allergy status to narcotic agent; Z79.01 Long term (current) use of anticoagulants; Z79.899 Other long term (current) drug therapy

== ENCOUNTER → 2021-05-22 | Outpatient (CLI) | payer MEDICARE ==
[~2021-05-22] MED LIST changes: +ACET-683 PO; +SPIR-10 PO
[2021-05-22 16:20] LABS: BASO % 0.2 % (0.0-1.0); EOS % 0.3 % (0.0-3.0); LYMPH # 0.7 10^3/uL (1.5-5.0); LYMPH % 10.4 % (24.0-44.0); MEAN CORPUSCULAR HEMOGLOBIN 30.7 pg (27.0-33.0); MONO # 0.7 10^3/uL (0.0-0.8); MONO % 9.9 % (2.0-8.0); NEUTROPHILS # 5.3 10^3/uL (1.5-8.5); NEUTROPHILS % 78.7 % (36.0-66.0); PLATELET COUNT, AUTOMATED 103 10^3/uL (150-450); RED BLOOD COUNT 2.93 10^6/uL (4.00-5.40); WHITE BLOOD COUNT 6.7 10^3/uL (4.0-10.0)
[2021-05-22 16:49] LABS: ALBUMIN 3.7 GM/DL (3.2-5.2); BILIRUBIN,TOTAL 0.3 MG/DL (0.2-1.0); CALCIUM LEVEL 9.1 MG/DL (8.8-10.2); CREATININE FOR GFR 1.24 MG/DL (0.55-1.30); FREE T3 1.8 PG/ML (2.2-4.0); FREE T4 1.2 NG/DL (0.76-1.46); GLOMERULAR FILTRATION RATE 43.7 (>32); POTASSIUM SERUM 4.9 MEQ/L (3.5-5.1); THYROID STIMULATING HORMONE 4.59 uIU/ML (0.358-3.740); TOTAL PROTEIN 6.9 GM/DL (6.4-8.2)
== END ==
LOC: M WUC 14:38
PROVIDERS: ATTEND Family Medicine
DX: D61.818 Other pancytopenia (principal); E03.9 Hypothyroidism, unspecified

== ENCOUNTER 2021-05-27 23:49 | Inpatient (IN) | payer MEDICARE ==
[~2021-05-27] VITALS: Ht 154.9 cm; Wt 54.5 kg
[2021-05-28] VITALS (13 sets, daily range): BP systolic 110–156; BP diastolic 54–67
[2021-05-28] MEDS ORDERED: fentaNYL 100 MCG/2 ML INJECTION IV ONE (00:45)
[2021-05-28 02:29] LABS: BASO % 0.1 % (0.0-1.0); HEMATOCRIT 26.7 % (36.0-47.0); HEMOGLOBIN 8.4 g/dl (12.0-15.5); LYMPH # 0.3 10^3/uL (1.5-5.0); LYMPH % 3.1 % (24.0-44.0); MEAN CORPUSCULAR HEMOGLOBIN 30.8 pg (27.0-33.0); MEAN CORPUSCULAR HGB CONC 31.5 g/dl (32.0-36.5); MEAN CORPUSCULAR VOLUME 97.8 fl (80.0-96.0); MONO # 0.7 10^3/uL (0.0-0.8); MONO % 6.1 % (2.0-8.0); NEUTROPHILS # 9.7 10^3/uL (1.5-8.5); NEUTROPHILS % 90.1 % (36.0-66.0); PLATELET COUNT, AUTOMATED 106 10^3/uL (150-450); RED BLOOD COUNT 2.73 10^6/uL (4.00-5.40); WHITE BLOOD COUNT 10.8 10^3/uL (4.0-10.0)
[2021-05-28 02:59] LABS: CALCIUM LEVEL 8.4 MG/DL (8.8-10.2); CREATININE FOR GFR 1.26 MG/DL (0.55-1.30); GLOMERULAR FILTRATION RATE 42.9 (>32); POTASSIUM SERUM 4.5 MEQ/L (3.5-5.1)
[2021-05-28] MEDS ORDERED: MORPHINE 2 MG/ML 1ML VIAL (J2270) IV ONE (03:30)
[2021-05-28] MEDS ORDERED: ACETAMINOPHEN *IV* 1,000 MG in IV 1 EA IV ONE (03:55)
[2021-05-28] MEDS ORDERED: HYDROMORPHONE HCL 0.5 MG/ 0.5 ML SYRINGE (J1170 PER 1) IV PRN (04:00)
[2021-05-28] MEDS ORDERED: METAL LOCK LOOP XX ONE (04:01)
[2021-05-28] MEDS: NS 1,000 ML IV SCH (05:27)
[2021-05-28] MEDS ORDERED: ELIQ2.5T PO (06:21)
[2021-05-28] MEDS ORDERED: NITR4TASL SL (06:21)
[2021-05-28] MEDS ORDERED: ACET-897 PO (06:21)
[2021-05-28] MEDS ORDERED: DIGO0.123 PO (06:21)
[2021-05-28] MEDS ORDERED: HOME MED LIST COMPLETE! XX SCH (06:25)
[2021-05-28 12:19] LABS: INR 1.16; PROTHROMBIN TIME 15.2 SECONDS (12.7-14.5)
[2021-05-28] MEDS: LEVOTHYROXINE 100MCG TABLET (0.1MG) PO SCH (12:39)
[2021-05-28] MEDS: FOLIC ACID 1 MG TAB PO SCH (12:39)
[2021-05-28] MEDS: FUROSEMIDE 20 MG TAB PO SCH (12:39)
[2021-05-28] MEDS: DIGOXIN 0.125 MG TAB PO SCH (12:39)
[2021-05-28] MEDS: SERTRALINE HCL 50 MG TAB PO SCH (12:39)
[2021-05-28] MEDS: SPIRONOLACTONE 25 MG TAB PO SCH (17:00)
[2021-05-28] MEDS: HYDROMORPHONE HCL 0.5 MG/ 0.5 ML SYRINGE (J1170 PER 1) IV PRN ×3 (19:26→23:37)
[2021-05-28] MEDS: MIRTAZAPINE 7.5MG PER 1/2 TABLET PO SCH (21:09)
[2021-05-28] MEDS: ATORVASTATIN 20 MG TAB PO SCH (21:10)
[2021-05-28] MEDS: ACETAMINOPHEN 500 MG TAB PO PRN (21:10)
[2021-05-29] VITALS (22 sets, daily range): BP systolic 83–150; BP diastolic 46–70
[2021-05-29] MEDS: ACETAMINOPHEN 500 MG TAB PO PRN ×2 (02:06→23:31)
[2021-05-29] MEDS: NS 1,000 ML IV SCH (03:38)
[2021-05-29] MEDS: HYDROMORPHONE HCL 0.5 MG/ 0.5 ML SYRINGE (J1170 PER 1) IV PRN ×2 (03:40→06:41)
[2021-05-29 05:31] LABS: HEMOGLOBIN 7.5 g/dl (12.0-15.5); MEAN CORPUSCULAR HEMOGLOBIN 31.1 pg (27.0-33.0); MEAN CORPUSCULAR HGB CONC 31.3 g/dl (32.0-36.5); MEAN CORPUSCULAR VOLUME 99.6 fl (80.0-96.0); RED BLOOD COUNT 2.41 10^6/uL (4.00-5.40); WHITE BLOOD COUNT 7.2 10^3/uL (4.0-10.0)
[2021-05-29 05:49] LABS: BLOOD UREA NITROGEN 24 MG/DL (7-18); CALCIUM LEVEL 8.5 MG/DL (8.8-10.2); CARBON DIOXIDE LEVEL 34 MEQ/L (21-32); CHLORIDE LEVEL 109 MEQ/L (98-107); CREATININE FOR GFR 1.15 MG/DL (0.55-1.30); GLOMERULAR FILTRATION RATE 47.6 (>32); GLUCOSE, FASTING 92 MG/DL (70-100); MAGNESIUM LEVEL 2.1 MG/DL (1.8-2.4); POTASSIUM SERUM 4.5 MEQ/L (3.5-5.1); SODIUM LEVEL 142 MEQ/L (136-145)
[2021-05-29 05:55] LABS: PLATELET COUNT, AUTOMATED 86 10^3/uL (150-450)
[2021-05-29] MEDS: LEVOTHYROXINE 100MCG TABLET (0.1MG) PO SCH (06:00)
[2021-05-29] MEDS: HYDROmorphone HCL 2MG/ML 1ML VIAL IV PRN ×2 (10:00→14:02)
[2021-05-29] MEDS: FUROSEMIDE 20 MG TAB PO SCH ×2 (10:01→10:07)
[2021-05-29] MEDS: SERTRALINE HCL 50 MG TAB PO SCH ×2 (10:01→10:07)
[2021-05-29] MEDS: DIGOXIN 0.125 MG TAB PO SCH ×2 (10:01→10:07)
[2021-05-29] MEDS: FOLIC ACID 1 MG TAB PO SCH ×2 (10:01→10:07)
[2021-05-29] MEDS: D5W/0.9% SODIUM CHLORIDE 1,000 ML IV SCH (10:10)
[2021-05-29] MEDS ORDERED: MORPHINE 4 MG/ML 1ML VIAL/SYRINGE (J2270) IV PRN (15:15)
[2021-05-29] MEDS ORDERED: ONDANSETRON 4MG/2ML VIAL IV PRN ×2 (15:15→21:35)
[2021-05-29 15:41] LABS: HEMATOCRIT 26.3 % (36.0-47.0); HEMOGLOBIN 8.2 g/dl (12.0-15.5); MEAN CORPUSCULAR HEMOGLOBIN 30.7 pg (27.0-33.0); MEAN CORPUSCULAR HGB CONC 31.2 g/dl (32.0-36.5); MEAN CORPUSCULAR VOLUME 98.5 fl (80.0-96.0); RED BLOOD COUNT 2.67 10^6/uL (4.00-5.40); WHITE BLOOD COUNT 11.8 10^3/uL (4.0-10.0)
[2021-05-29 15:42] LABS: PLATELET COUNT, AUTOMATED 82 10^3/uL (150-450)
[2021-05-29 16:09] LABS: ALBUMIN 3.3 GM/DL (3.2-5.2); BILIRUBIN,TOTAL 0.6 MG/DL (0.2-1.0); CREATININE FOR GFR 1.09 MG/DL (0.55-1.30); GLOMERULAR FILTRATION RATE 50.7 (>32); MAGNESIUM LEVEL 2.2 MG/DL (1.8-2.4); POTASSIUM SERUM 4.6 MEQ/L (3.5-5.1); TOTAL PROTEIN 6.7 GM/DL (6.4-8.2)
[2021-05-29 16:32] LABS: ABG BASE EXCESS -0.1 (-2.0-2.0); ABG HCO3 25.9 MEQ/L (22.0-26.0); ABG O2 SATURATION 99.2 % (95.0-99.0); ABG PARTIAL PRESSURE CO2 49.1 mmHg (35.0-45.0); ABG PARTIAL PRESSURE O2 186.2 mmHg (75.0-100.0); ABG STANDARD HCO3 24.4 MEQ/L (22.0-26.0); ABG TOTAL CO2 27.4 MEQ/L (23.0-31.0)
[2021-05-29] MEDS: SPIRONOLACTONE 25 MG TAB PO SCH (17:00)
[2021-05-29] MEDS: MORPHINE 4 MG/ML 1ML VIAL/SYRINGE (J2270) IV PRN (18:25)
[2021-05-29] MEDS ORDERED: ceFAZolin 1GM VIAL (J0690 PER 500MG) As Ordered ONE (19:07)
[2021-05-29] MEDS ORDERED: LIDOCAINE 2% 100MG/5ML SDV (FOR ANES.) As Ordered ONE (19:16)
[2021-05-29] MEDS ORDERED: fentaNYL 100 MCG/2 ML INJECTION As Ordered ONE (19:16)
[2021-05-29] MEDS ORDERED: propofoL 200 MG/20 ML VIAL As Ordered ONE (19:16)
[2021-05-29] MEDS ORDERED: MIDAZOLAM INJ 2MG/2ML VIAL (J2250 PER 1MG) As Ordered ONE (19:17)
[2021-05-29] MEDS ORDERED: ROCURONIUM BROMIDE 50 MG/5 ML VIAL As Ordered ONE (19:37)
[2021-05-29] MEDS ORDERED: ceFAZolin 2 GM/D5W 50 ML IV BAG (J0690 PER 500MG) As Ordered ONE (19:42)
[2021-05-29] MEDS ORDERED: PHENYLephrine 500MCG 5ML (100MCG/ML) SYRINGE As Ordered ONE ×2 (19:54→20:15)
[2021-05-29] MEDS ORDERED: dexameTHASONE 4 MG/ML 1ML VIAL (J1100 PER 1MG) As Ordered ONE (19:55)
[2021-05-29] MEDS ORDERED: SUGAMMADEX SODIUM 500 MG/5 ML VIAL (BRIDION) As Ordered ONE (20:18)
[2021-05-29] MEDS ORDERED: ONDANSETRON 4MG/2ML VIAL As Ordered ONE (20:19)
[2021-05-29] MEDS ORDERED: LIDOCAINE W/EPINEPHRINE 1% 20ML VIAL As Ordered ONE (20:19)
[2021-05-29] MEDS ORDERED: ACETAMINOPHEN 1000MG 100ML IV BTL (OFIRMEV) (J0131 PER 10MG) As Ordered ONE (20:20)
[2021-05-29] MEDS ORDERED: BUPIVACAINE HCL 0.5% 30 ML VIAL As Ordered ONE (21:08)
[2021-05-29] MEDS ORDERED: METOCLOPRAMIDE INJ 10MG/2ML VIAL (J2765 PER 1) IV PRN (21:35)
[2021-05-29] MEDS ORDERED: LR 1,000 ML IV SCH (21:35)
[2021-05-29] MEDS ORDERED: fentaNYL 100 MCG/2 ML INJECTION IV PRN (21:35)
[2021-05-29] MEDS ORDERED: oxyCODONE 5MG TAB PO PRN (21:35)
[2021-05-29] MEDS: MIRTAZAPINE 7.5MG PER 1/2 TABLET PO SCH (23:31)
[2021-05-29] MEDS: ATORVASTATIN 20 MG TAB PO SCH (23:31)
[2021-05-30] VITALS (18 sets, daily range): BP systolic 79–123; BP diastolic 40–67
[2021-05-30] MEDS: MORPHINE 4 MG/ML 1ML VIAL/SYRINGE (J2270) IV PRN ×5 (00:28→21:26)
[2021-05-30] MEDS ORDERED: NS 250 ML IV ONE (01:20)
[2021-05-30] MEDS: ceFAZolin SOD 2 GM in IV 1 EA IV SCH ×2 (03:11→10:56)
[2021-05-30 04:36] LABS: HEMATOCRIT 22.8 % (36.0-47.0); MEAN CORPUSCULAR HEMOGLOBIN 30.6 pg (27.0-33.0); MEAN CORPUSCULAR HGB CONC 30.7 g/dl (32.0-36.5); MEAN CORPUSCULAR VOLUME 99.6 fl (80.0-96.0); PLATELET COUNT, AUTOMATED 73 10^3/uL (150-450); RED BLOOD COUNT 2.29 10^6/uL (4.00-5.40); WHITE BLOOD COUNT 9.8 10^3/uL (4.0-10.0)
[2021-05-30 04:57] LABS: CALCIUM LEVEL 8.3 MG/DL (8.8-10.2); CREATININE FOR GFR 1.29 MG/DL (0.55-1.30); GLOMERULAR FILTRATION RATE 41.7 (>32); POTASSIUM SERUM 4.8 MEQ/L (3.5-5.1)
[2021-05-30] MEDS: LEVOTHYROXINE 100MCG TABLET (0.1MG) PO SCH (06:26)
[2021-05-30] MEDS: ACETAMINOPHEN 500 MG TAB PO PRN (06:31)
[2021-05-30] MEDS: D5W/0.9% SODIUM CHLORIDE 1,000 ML IV SCH (07:34)
[2021-05-30] MEDS: FOLIC ACID 1 MG TAB PO SCH (08:42)
[2021-05-30] MEDS: APIXABAN 2.5 MG TAB (ELIQUIS) PO SCH ×2 (08:42→21:26)
[2021-05-30] MEDS: DIGOXIN 0.125 MG TAB PO SCH (08:43)
[2021-05-30] MEDS: SERTRALINE HCL 50 MG TAB PO SCH (08:43)
[2021-05-30] MEDS: FUROSEMIDE 20 MG TAB PO SCH (08:44)
[2021-05-30 15:40] LABS: HEMATOCRIT 20.8 % (36.0-47.0); HEMOGLOBIN 6.5 g/dl (12.0-15.5)
[2021-05-30] MEDS: SPIRONOLACTONE 25 MG TAB PO SCH (17:26)
[2021-05-30] MEDS: ATORVASTATIN 20 MG TAB PO SCH (21:21)
[2021-05-30] MEDS: MIRTAZAPINE 7.5MG PER 1/2 TABLET PO SCH (21:21)
[2021-05-31] VITALS (11 sets, daily range): BP systolic 111–133; BP diastolic 55–65
[2021-05-31 01:58] LABS: HEMATOCRIT 23.5 % (36.0-47.0); HEMOGLOBIN 7.4 g/dl (12.0-15.5)
[2021-05-31 05:27] LABS: HEMATOCRIT 23.4 % (36.0-47.0); HEMOGLOBIN 7.3 g/dl (12.0-15.5); MEAN CORPUSCULAR HGB CONC 31.2 g/dl (32.0-36.5); MEAN CORPUSCULAR VOLUME 96.3 fl (80.0-96.0); RED BLOOD COUNT 2.43 10^6/uL (4.00-5.40); WHITE BLOOD COUNT 8.1 10^3/uL (4.0-10.0)
[2021-05-31 05:28] LABS: PLATELET COUNT, AUTOMATED 78 10^3/uL (150-450)
[2021-05-31 05:41] LABS: CALCIUM LEVEL 8.4 MG/DL (8.8-10.2); CREATININE FOR GFR 1.34 MG/DL (0.55-1.30); GLOMERULAR FILTRATION RATE 39.9 (>32); POTASSIUM SERUM 4.9 MEQ/L (3.5-5.1)
[2021-05-31] MEDS: LEVOTHYROXINE 100MCG TABLET (0.1MG) PO SCH (06:27)
[2021-05-31] MEDS: APIXABAN 2.5 MG TAB (ELIQUIS) PO SCH ×2 (09:05→20:51)
[2021-05-31] MEDS: SERTRALINE HCL 50 MG TAB PO SCH (09:05)
[2021-05-31] MEDS: FUROSEMIDE 20 MG TAB PO SCH (09:05)
[2021-05-31] MEDS: FOLIC ACID 1 MG TAB PO SCH (09:05)
[2021-05-31] MEDS: DIGOXIN 0.125 MG TAB PO SCH (09:05)
[2021-05-31 14:12] LABS: HEMATOCRIT 26.8 % (36.0-47.0); HEMOGLOBIN 8.7 g/dl (12.0-15.5)
[2021-05-31] MEDS: NORCO, ANEXSIA 5/325MG TABLET (HYDROcodone/ACETAMINOPHEN) PO PRN (16:39)
[2021-05-31] MEDS: SPIRONOLACTONE 25 MG TAB PO SCH (16:39)
[2021-05-31] MEDS: ATORVASTATIN 20 MG TAB PO SCH (20:51)
[2021-05-31] MEDS: MIRTAZAPINE 7.5MG PER 1/2 TABLET PO SCH (20:51)
[2021-05-31] MEDS: ACETAMINOPHEN 500 MG TAB PO PRN (20:52)
[2021-05-31] MEDS: DOCUSATE SODIUM 100MG CAPSULE PO SCH (21:00)
[2021-06-01 05:32] VITALS: BP 142/79
[2021-06-01] MEDS: LEVOTHYROXINE 100MCG TABLET (0.1MG) PO SCH (05:52)
[2021-06-01] MEDS: ACETAMINOPHEN 500 MG TAB PO PRN ×2 (05:52→21:06)
[2021-06-01 07:43] LABS: HEMATOCRIT 27.1 % (36.0-47.0); HEMOGLOBIN 8.6 g/dl (12.0-15.5); MEAN CORPUSCULAR HEMOGLOBIN 29.9 pg (27.0-33.0); MEAN CORPUSCULAR HGB CONC 31.7 g/dl (32.0-36.5); MEAN CORPUSCULAR VOLUME 94.1 fl (80.0-96.0); RED BLOOD COUNT 2.88 10^6/uL (4.00-5.40); WHITE BLOOD COUNT 8.2 10^3/uL (4.0-10.0)
[2021-06-01 07:44] LABS: PLATELET COUNT, AUTOMATED 84 10^3/uL (150-450)
[2021-06-01 07:56] LABS: CALCIUM LEVEL 8.4 MG/DL (8.8-10.2); CREATININE FOR GFR 1.19 MG/DL (0.55-1.30); GLOMERULAR FILTRATION RATE 45.8 (>32); MAGNESIUM LEVEL 2.2 MG/DL (1.8-2.4); POTASSIUM SERUM 4.8 MEQ/L (3.5-5.1)
[2021-06-01] MEDS: FOLIC ACID 1 MG TAB PO SCH (09:28)
[2021-06-01] MEDS: APIXABAN 2.5 MG TAB (ELIQUIS) PO SCH ×2 (09:28→21:06)
[2021-06-01] MEDS: FUROSEMIDE 20 MG TAB PO SCH (09:28)
[2021-06-01] MEDS: DOCUSATE SODIUM 100MG CAPSULE PO SCH ×2 (09:28→21:06)
[2021-06-01] MEDS: DIGOXIN 0.125 MG TAB PO SCH (09:28)
[2021-06-01] MEDS: SERTRALINE HCL 50 MG TAB PO SCH (09:28)
[2021-06-01] MEDS: NORCO, ANEXSIA 5/325MG TABLET (HYDROcodone/ACETAMINOPHEN) PO PRN ×2 (09:29→17:20)
[2021-06-01 14:00] VITALS: BP 116/54
[2021-06-01] MEDS: SPIRONOLACTONE 25 MG TAB PO SCH (17:19)
[2021-06-01] MEDS: ATORVASTATIN 20 MG TAB PO SCH (21:06)
[2021-06-01] MEDS: MIRTAZAPINE 7.5MG PER 1/2 TABLET PO SCH (21:06)
[2021-06-01 22:00] VITALS: BP 119/55
[2021-06-02] MEDS: ACETAMINOPHEN 500 MG TAB PO PRN ×2 (05:44→20:41)
[2021-06-02] MEDS: LEVOTHYROXINE 100MCG TABLET (0.1MG) PO SCH (05:44)
[2021-06-02 06:00] VITALS: BP 124/58
[2021-06-02 07:22] LABS: HEMATOCRIT 26.4 % (36.0-47.0); HEMOGLOBIN 8.4 g/dl (12.0-15.5); MEAN CORPUSCULAR HEMOGLOBIN 29.8 pg (27.0-33.0); MEAN CORPUSCULAR HGB CONC 31.8 g/dl (32.0-36.5); MEAN CORPUSCULAR VOLUME 93.6 fl (80.0-96.0); RED BLOOD COUNT 2.82 10^6/uL (4.00-5.40); WHITE BLOOD COUNT 6.7 10^3/uL (4.0-10.0)
[2021-06-02 07:23] LABS: PLATELET COUNT, AUTOMATED 92 10^3/uL (150-450)
[2021-06-02 07:43] LABS: CALCIUM LEVEL 8.4 MG/DL (8.8-10.2); CREATININE FOR GFR 1.09 MG/DL (0.55-1.30); GLOMERULAR FILTRATION RATE 50.7 (>32); MAGNESIUM LEVEL 2.2 MG/DL (1.8-2.4); POTASSIUM SERUM 4.7 MEQ/L (3.5-5.1)
[2021-06-02] MEDS: FOLIC ACID 1 MG TAB PO SCH (09:38)
[2021-06-02] MEDS: DOCUSATE SODIUM 100MG CAPSULE PO SCH ×2 (09:38→20:40)
[2021-06-02] MEDS: APIXABAN 2.5 MG TAB (ELIQUIS) PO SCH ×2 (09:38→20:40)
[2021-06-02] MEDS: FUROSEMIDE 20 MG TAB PO SCH (09:39)
[2021-06-02] MEDS: SERTRALINE HCL 50 MG TAB PO SCH (09:39)
[2021-06-02] MEDS: NORCO, ANEXSIA 5/325MG TABLET (HYDROcodone/ACETAMINOPHEN) PO PRN ×2 (09:39→15:18)
[2021-06-02] MEDS: DIGOXIN 0.125 MG TAB PO SCH (09:39)
[2021-06-02 14:00] VITALS: BP 125/60
[2021-06-02] MEDS: SPIRONOLACTONE 25 MG TAB PO SCH (15:18)
[2021-06-02] MEDS: ATORVASTATIN 20 MG TAB PO SCH (20:40)
[2021-06-02] MEDS: MIRTAZAPINE 7.5MG PER 1/2 TABLET PO SCH (20:40)
[2021-06-02 22:00] VITALS: BP 125/60
[2021-06-03 05:14] LABS: HEMATOCRIT 26.7 % (36.0-47.0); HEMOGLOBIN 8.6 g/dl (12.0-15.5); MEAN CORPUSCULAR HEMOGLOBIN 30.3 pg (27.0-33.0); MEAN CORPUSCULAR HGB CONC 32.2 g/dl (32.0-36.5); PLATELET COUNT, AUTOMATED 101 10^3/uL (150-450); RED BLOOD COUNT 2.84 10^6/uL (4.00-5.40); WHITE BLOOD COUNT 6.9 10^3/uL (4.0-10.0)
[2021-06-03] MEDS: LEVOTHYROXINE 100MCG TABLET (0.1MG) PO SCH (05:47)
[2021-06-03] MEDS: NORCO, ANEXSIA 5/325MG TABLET (HYDROcodone/ACETAMINOPHEN) PO PRN ×2 (05:48→15:50)
[2021-06-03 05:51] LABS: CALCIUM LEVEL 8.3 MG/DL (8.8-10.2); CREATININE FOR GFR 1.02 MG/DL (0.55-1.30); GLOMERULAR FILTRATION RATE 54.7 (>32); MAGNESIUM LEVEL 2.2 MG/DL (1.8-2.4); POTASSIUM SERUM 5.2 MEQ/L (3.5-5.1)
[2021-06-03 06:00] VITALS: BP 124/56
[2021-06-03] MEDS: DOCUSATE SODIUM 100MG CAPSULE PO SCH ×2 (08:10→22:46)
[2021-06-03] MEDS: FOLIC ACID 1 MG TAB PO SCH (08:10)
[2021-06-03] MEDS: APIXABAN 2.5 MG TAB (ELIQUIS) PO SCH ×2 (08:10→22:46)
[2021-06-03] MEDS: SERTRALINE HCL 50 MG TAB PO SCH (08:11)
[2021-06-03] MEDS: FUROSEMIDE 20 MG TAB PO SCH (08:11)
[2021-06-03] MEDS: DIGOXIN 0.125 MG TAB PO SCH (08:11)
[2021-06-03 14:00] VITALS: BP 154/70
[2021-06-03] MEDS: SPIRONOLACTONE 25 MG TAB PO SCH (16:07)
[2021-06-03 20:56] VITALS: BP 122/72
[2021-06-03] MEDS: MIRTAZAPINE 7.5MG PER 1/2 TABLET PO SCH (22:46)
[2021-06-03] MEDS: ATORVASTATIN 20 MG TAB PO SCH (22:46)
[2021-06-04] MEDS: LEVOTHYROXINE 100MCG TABLET (0.1MG) PO SCH (05:57)
[2021-06-04 06:04] VITALS: BP 130/59
[2021-06-04 06:22] LABS: HEMATOCRIT 27.8 % (36.0-47.0); HEMOGLOBIN 8.8 g/dl (12.0-15.5); MEAN CORPUSCULAR HEMOGLOBIN 29.6 pg (27.0-33.0); MEAN CORPUSCULAR HGB CONC 31.7 g/dl (32.0-36.5); MEAN CORPUSCULAR VOLUME 93.6 fl (80.0-96.0); PLATELET COUNT, AUTOMATED 107 10^3/uL (150-450); RED BLOOD COUNT 2.97 10^6/uL (4.00-5.40); WHITE BLOOD COUNT 6.8 10^3/uL (4.0-10.0)
[2021-06-04 06:53] LABS: CALCIUM LEVEL 8.6 MG/DL (8.8-10.2); CREATININE FOR GFR 0.95 MG/DL (0.55-1.30); GLOMERULAR FILTRATION RATE 59.4 (>32); MAGNESIUM LEVEL 2.2 MG/DL (1.8-2.4); POTASSIUM SERUM 4.5 MEQ/L (3.5-5.1)
[2021-06-04] MEDS: SERTRALINE HCL 50 MG TAB PO SCH (08:34)
[2021-06-04] MEDS: APIXABAN 2.5 MG TAB (ELIQUIS) PO SCH ×2 (08:34→21:25)
[2021-06-04] MEDS: DOCUSATE SODIUM 100MG CAPSULE PO SCH ×2 (08:35→21:25)
[2021-06-04] MEDS: FOLIC ACID 1 MG TAB PO SCH (08:35)
[2021-06-04] MEDS: DIGOXIN 0.125 MG TAB PO SCH (08:35)
[2021-06-04] MEDS: FUROSEMIDE 20 MG TAB PO SCH (08:36)
[2021-06-04 10:00] VITALS: BP 126/62
[2021-06-04] MEDS: NORCO, ANEXSIA 5/325MG TABLET (HYDROcodone/ACETAMINOPHEN) PO PRN ×2 (11:14→21:25)
[2021-06-04 14:00] VITALS: BP 102/50
[2021-06-04] MEDS: SPIRONOLACTONE 25 MG TAB PO SCH (17:02)
[2021-06-04] MEDS: ATORVASTATIN 20 MG TAB PO SCH (21:25)
[2021-06-04] MEDS: MIRTAZAPINE 7.5MG PER 1/2 TABLET PO SCH (21:25)
[2021-06-05] MEDS: LEVOTHYROXINE 100MCG TABLET (0.1MG) PO SCH (05:58)
[2021-06-05 06:25] LABS: HEMATOCRIT 27.1 % (36.0-47.0); HEMOGLOBIN 8.7 g/dl (12.0-15.5); MEAN CORPUSCULAR HEMOGLOBIN 29.8 pg (27.0-33.0); MEAN CORPUSCULAR HGB CONC 32.1 g/dl (32.0-36.5); MEAN CORPUSCULAR VOLUME 92.8 fl (80.0-96.0); PLATELET COUNT, AUTOMATED 111 10^3/uL (150-450); RED BLOOD COUNT 2.92 10^6/uL (4.00-5.40); WHITE BLOOD COUNT 5.9 10^3/uL (4.0-10.0)
[2021-06-05 06:49] LABS: CALCIUM LEVEL 8.5 MG/DL (8.8-10.2); CREATININE FOR GFR 0.95 MG/DL (0.55-1.30); GLOMERULAR FILTRATION RATE 59.4 (>32); MAGNESIUM LEVEL 2.2 MG/DL (1.8-2.4); POTASSIUM SERUM 4.6 MEQ/L (3.5-5.1)
[2021-06-05] MEDS: FOLIC ACID 1 MG TAB PO SCH (09:07)
[2021-06-05] MEDS: DOCUSATE SODIUM 100MG CAPSULE PO SCH ×2 (09:07→21:19)
[2021-06-05] MEDS: SERTRALINE HCL 50 MG TAB PO SCH (09:07)
[2021-06-05] MEDS: APIXABAN 2.5 MG TAB (ELIQUIS) PO SCH ×2 (09:08→21:20)
[2021-06-05] MEDS: FUROSEMIDE 20 MG TAB PO SCH (09:08)
[2021-06-05] MEDS: DIGOXIN 0.125 MG TAB PO SCH (09:08)
[2021-06-05] MEDS ORDERED: MIRALAX *UNIT DOSE* 17GM PACKET PO PRN (09:10)
[2021-06-05] MEDS: NORCO, ANEXSIA 5/325MG TABLET (HYDROcodone/ACETAMINOPHEN) PO PRN (14:46)
[2021-06-05] MEDS: SPIRONOLACTONE 25 MG TAB PO SCH (16:47)
[2021-06-05] MEDS ORDERED: SENNA 8.6 MG TAB (SENOKOT) PO SCH (21:00)
[2021-06-05] MEDS: ATORVASTATIN 20 MG TAB PO SCH (21:19)
[2021-06-05] MEDS: MIRTAZAPINE 7.5MG PER 1/2 TABLET PO SCH (21:19)
[2021-06-06] MEDS: LEVOTHYROXINE 100MCG TABLET (0.1MG) PO SCH (05:12)
[2021-06-06 06:00] VITALS: BP 127/57
[2021-06-06 06:40] LABS: HEMATOCRIT 24.6 % (36.0-47.0); MEAN CORPUSCULAR HGB CONC 32.5 g/dl (32.0-36.5); MEAN CORPUSCULAR VOLUME 92.1 fl (80.0-96.0); PLATELET COUNT, AUTOMATED 109 10^3/uL (150-450); RED BLOOD COUNT 2.67 10^6/uL (4.00-5.40); WHITE BLOOD COUNT 5.7 10^3/uL (4.0-10.0)
[2021-06-06 07:09] LABS: CALCIUM LEVEL 8.4 MG/DL (8.8-10.2); CREATININE FOR GFR 0.96 MG/DL (0.55-1.30); GLOMERULAR FILTRATION RATE 58.7 (>32); MAGNESIUM LEVEL 2.2 MG/DL (1.8-2.4); POTASSIUM SERUM 4.6 MEQ/L (3.5-5.1)
[2021-06-06] MEDS: DOCUSATE SODIUM 100MG CAPSULE PO SCH (08:12)
[2021-06-06] MEDS: APIXABAN 2.5 MG TAB (ELIQUIS) PO SCH (08:12)
[2021-06-06] MEDS: SERTRALINE HCL 50 MG TAB PO SCH (08:12)
[2021-06-06] MEDS: FOLIC ACID 1 MG TAB PO SCH (08:12)
[2021-06-06] MEDS: FUROSEMIDE 20 MG TAB PO SCH (08:14)
[2021-06-06] MEDS: DIGOXIN 0.125 MG TAB PO SCH (08:14)
[2021-06-06 08:15] VITALS: BP 123/55
[2021-06-06] MEDS ORDERED: COLA100C5 PO (10:56)
[2021-06-06] MEDS ORDERED: MIRA1POW3 PO (10:56)
[2021-06-06] MEDS ORDERED: SENN18TA PO (10:56)
[2021-06-06] MEDS ORDERED: HYDR-3715 PO (10:56)
[2021-06-06] MEDS: NORCO, ANEXSIA 5/325MG TABLET (HYDROcodone/ACETAMINOPHEN) PO PRN (11:19)
== END 2021-06-06 11:25 | DRG 481 ==
LOC: M ED 23:49 → M ED INP 05-28 03:56 → ENRESERV 05-28 08:30 → M ICU 05-28 09:50 → M MS5PR 05-31 14:15
PROVIDERS: ADMIT Internal Medicine; ATTEND Internal Medicine
PROC: 0QS636Z Reposition Right Upper Femur with Intramedullary Internal Fixation Device, Percutaneous Approach (ICD-10-PCS; principal; 2021-05-29 16:00)
PROC: 30233N1 Transfusion of Nonautologous Red Blood Cells into Peripheral Vein, Percutaneous Approach (ICD-10-PCS; 2021-05-30)
DX: S72.144A Nondisplaced intertrochanteric fracture of right femur, initial encounter for closed fracture (principal); I50.32 Chronic diastolic (congestive) heart failure; D62 Acute posthemorrhagic anemia; W10.9XXA Fall (on) (from) unspecified stairs and steps, initial encounter; Y92.009 Unspecified place in unspecified non-institutional (private) residence as the place of occurrence of the external cause; Y93.89 Activity, other specified; Y99.8 Other external cause status; I48.91 Unspecified atrial fibrillation; I27.20 Pulmonary hypertension, unspecified; N18.30 Chronic kidney disease, stage 3 unspecified; Z66 Do not resuscitate; F32.A Depression, unspecified; M81.0 Age-related osteoporosis without current pathological fracture; E03.9 Hypothyroidism, unspecified; L89.152 Pressure ulcer of sacral region, stage 2; K59.00 Constipation, unspecified; Z20.822 Contact with and (suspected) exposure to COVID-19; Z79.01 Long term (current) use of anticoagulants; Z79.899 Other long term (current) drug therapy; Z96.652 Presence of left artificial knee joint; Z88.5 Allergy status to narcotic agent

== ENCOUNTER → 2021-06-18 | Outpatient (CLI) | payer MEDICARE ==
[~2021-06-18] MED LIST changes: +ACET-897 PO; +COLA100C5 PO; +HYDR-3715 PO; +NITR4TASL SL; +SENN18TA PO
== END ==
LOC: M SOG 09:53
PROVIDERS: ATTEND Orthopaedic Surgery
DX: S72.141A Displaced intertrochanteric fracture of right femur, initial encounter for closed fracture (principal); W18.30XA Fall on same level, unspecified, initial encounter; Y92.009 Unspecified place in unspecified non-institutional (private) residence as the place of occurrence of the external cause

== ENCOUNTER → 2021-07-16 | Outpatient (CLI) | payer MEDICARE | LOC: M SOG 09:00 | PROVIDERS: ATTEND Orthopaedic Surgery | DX: S72.141D Displaced intertrochanteric fracture of right femur, subsequent encounter for closed fracture with routine healing (principal); Y92.9 Unspecified place or not applicable; Y93.9 Activity, unspecified; Y99.9 Unspecified external cause status ==

== ENCOUNTER → 2021-07-30 | Outpatient (CLI) | payer MEDICARE ==
[2021-07-30 17:55] LABS: BASO % 0.1 % (0.0-1.0); EOS % 0.1 % (0.0-3.0); HEMATOCRIT 31.6 % (36.0-47.0); HEMOGLOBIN 9.8 g/dl (12.0-15.5); LYMPH # 0.6 10^3/uL (1.5-5.0); LYMPH % 9.2 % (24.0-44.0); MEAN CORPUSCULAR HEMOGLOBIN 31.3 pg (27.0-33.0); MONO # 0.6 10^3/uL (0.0-0.8); MONO % 8.6 % (2.0-8.0); NEUTROPHILS # 5.5 10^3/uL (1.5-8.5); NEUTROPHILS % 81.4 % (36.0-66.0); PLATELET COUNT, AUTOMATED 125 10^3/uL (150-450); RED BLOOD COUNT 3.13 10^6/uL (4.00-5.40); WHITE BLOOD COUNT 6.8 10^3/uL (4.0-10.0)
[2021-07-30 18:21] LABS: ALBUMIN 3.8 GM/DL (3.2-5.2); BILIRUBIN,TOTAL 0.3 MG/DL (0.2-1.0); CALCIUM LEVEL 9.2 MG/DL (8.8-10.2); CREATININE FOR GFR 1.39 MG/DL (0.55-1.30); GLOMERULAR FILTRATION RATE 38.3 (>32); POTASSIUM SERUM 5.6 MEQ/L (3.5-5.1)
== END ==
LOC: M LAB 16:24
PROVIDERS: ATTEND Family Medicine
DX: D64.9 Anemia, unspecified (principal)

== ENCOUNTER → 2021-07-30 | Outpatient (CLI) | payer MEDICARE | LOC: M LAB 16:22 | PROVIDERS: ATTEND Orthopaedic Surgery | DX: M81.0 Age-related osteoporosis without current pathological fracture (principal); E55.9 Vitamin D deficiency, unspecified ==

== ENCOUNTER → 2021-08-01 | Outpatient (CLI) | payer MEDICARE | LOC: M WHC 10:15 | PROVIDERS: ATTEND Family Medicine | DX: N63.10 Unspecified lump in the right breast, unspecified quadrant (principal) | CPT/HCPCS: 76642; 77066; G0279 ==

== ENCOUNTER → 2021-08-08 | Outpatient (CLI) | payer MEDICARE | LOC: M SOG 09:07 | PROVIDERS: ATTEND Orthopaedic Surgery | DX: S72.141D Displaced intertrochanteric fracture of right femur, subsequent encounter for closed fracture with routine healing (principal); W18.30XD Fall on same level, unspecified, subsequent encounter ==

== ENCOUNTER → 2021-08-14 | Outpatient (CLI) | payer MEDICARE ==
[2021-08-14 10:33] VITALS: BP 156/80
== END ==
LOC: M WHCPRO 09:02
PROVIDERS: ATTEND Surgery
DX: R92.8 Other abnormal and inconclusive findings on diagnostic imaging of breast (principal); N63.14 Unspecified lump in the right breast, lower inner quadrant; D24.1 Benign neoplasm of right breast
CPT/HCPCS: 19083; 77065; 88305; G0279

== ENCOUNTER → 2021-08-15 | Outpatient (CLI) | payer MEDICARE | LOC: M SOG 09:13 | PROVIDERS: ATTEND Orthopaedic Surgery | DX: S72.141D Displaced intertrochanteric fracture of right femur, subsequent encounter for closed fracture with routine healing (principal); M17.11 Unilateral primary osteoarthritis, right knee; W18.30XD Fall on same level, unspecified, subsequent encounter ==

== ENCOUNTER → 2021-08-27 | Outpatient (CLI) | payer MEDICARE | LOC: M PLARAD 15:54 | PROVIDERS: ATTEND Family Medicine | DX: C79.51 Secondary malignant neoplasm of bone (principal); M17.11 Unilateral primary osteoarthritis, right knee | CPT/HCPCS: 78815; A9552 ==

== ENCOUNTER → 2021-08-29 | Outpatient (CLI) | payer MEDICARE | LOC: M SOG 07:58 | PROVIDERS: ATTEND Orthopaedic Surgery | DX: M17.11 Unilateral primary osteoarthritis, right knee (principal) ==

== ENCOUNTER → 2021-09-26 | Outpatient (CLI) | payer MEDICARE | LOC: M SOG 08:36 | PROVIDERS: ATTEND Orthopaedic Surgery | DX: S72.141D Displaced intertrochanteric fracture of right femur, subsequent encounter for closed fracture with routine healing (principal); M25.851 Other specified joint disorders, right hip ==

== ENCOUNTER → 2021-10-23 | Outpatient (CLI) | payer MEDICARE ==
[~2021-10-23] MED LIST changes: +LEVO1TAB39 PO; -LEVO500T4 PO
[2021-10-23 14:06] VITALS: BP 130/64
== END ==
LOC: M WHCPRO 12:47
PROVIDERS: ATTEND Surgery
DX: N63.12 Unspecified lump in the right breast, upper inner quadrant (principal)

== ENCOUNTER → 2021-12-23 | Outpatient (CLI) | payer MEDICARE | LOC: M SOG 08:44 | PROVIDERS: ATTEND Orthopaedic Surgery | DX: S72.141D Displaced intertrochanteric fracture of right femur, subsequent encounter for closed fracture with routine healing (principal); W18.30XD Fall on same level, unspecified, subsequent encounter; Y92.009 Unspecified place in unspecified non-institutional (private) residence as the place of occurrence of the external cause ==

== ENCOUNTER → 2022-01-08 | Outpatient (CLI) | payer MEDICARE | LOC: M PLAIMG 12:50 | PROVIDERS: ATTEND Thoracic Surgery (Cardiothoracic Vascular Surgery) | DX: I71.20 Thoracic aortic aneurysm, without rupture, unspecified (principal) ==

== ENCOUNTER 2022-04-16 07:20 | Inpatient (IN) | payer MEDICARE ==
[~2022-04-16] VITALS: Ht 149.9 cm; Wt 63.1 kg
[~2022-04-16 07:20] MED LIST changes: -DOXY-342 PO; +DOXY100C81 PO
[2022-04-16] MEDS ORDERED: ONDANSETRON 4MG 2ML VIAL IV ONE (08:20)
[2022-04-16] MEDS ORDERED: MORPHINE 2 MG/ML 1ML VIAL IV PRN (08:20)
[2022-04-16 08:31] LABS: INR 1.38; PROTHROMBIN TIME 17.2 SECONDS (12.5-14.5)
[2022-04-16 08:39] LABS: LIPASE 21 U/L (12-53)
[2022-04-16 08:41] LABS: BILIRUBIN,DIRECT 0.4 MG/DL (<0.4); CPK CREATINE PHOSPHOKINASE 16 U/L (34-145)
[2022-04-16 08:42] LABS: ALBUMIN 3.1 G/DL (3.2-5.2); ALKALINE PHOSPHATASE 111 U/L (46-116); ALT/SGPT 22 U/L (7.0-40); AST/SGOT 23 U/L (<34); BILIRUBIN,TOTAL 0.9 MG/DL (0.3-1.2); BLOOD UREA NITROGEN 53 MG/DL (9-23); CALCIUM LEVEL 8.1 MG/DL (8.3-10.6); CARBON DIOXIDE LEVEL 24 MMOL/L (20-31); CHLORIDE LEVEL 103 MMOL/L (98-107); CK-MB VALUE MASS < 1.0 NG/ML (<3.6); GLOMERULAR FILTRATION RATE 30.3 (>32); GLUCOSE, FASTING 120 MG/DL (74-106); MB/CK RELATIVE INDEX 6.25 (< OR =4); POTASSIUM SERUM 4.2 MMOL/L (3.5-5.1); SODIUM LEVEL 136 MMOL/L (136-145); TOTAL PROTEIN 6.3 G/DL (5.7-8.2)
[2022-04-16 08:43] LABS: FREE T4 0.92 NG/DL (0.89-1.76)
[2022-04-16 08:44] LABS: THYROID STIMULATING HORMONE 4.483 uIU/ML (0.55-4.78)
[2022-04-16] MEDS ORDERED: DIGOXIN 0.125 MG TAB PO STA (08:44)
[2022-04-16 08:46] LABS: BASO % 0.1 % (0.0-1.0); EOS % 0.1 % (0.0-3.0); HEMATOCRIT 25.9 % (36.0-47.0); HEMOGLOBIN 8.3 g/dl (12.0-15.5); LYMPH # 0.3 10^3/uL (1.5-5.0); LYMPH % 3.3 % (24.0-44.0); MEAN CORPUSCULAR HEMOGLOBIN 29.5 pg (27.0-33.0); MEAN CORPUSCULAR VOLUME 92.2 fl (80.0-96.0); MONO # 0.8 10^3/uL (0.0-0.8); MONO % 8.7 % (2.0-8.0); NEUTROPHILS # 7.9 10^3/uL (1.5-8.5); NEUTROPHILS % 86.8 % (36.0-66.0); RED BLOOD COUNT 2.81 10^6/uL (4.00-5.40); WHITE BLOOD COUNT 9.1 10^3/uL (4.0-10.0)
[2022-04-16] MEDS ORDERED: ISOVUE-370 76% 100ML VIAL As Ordered ONE (08:56)
[2022-04-16 09:05] LABS: DIGOXIN LEVEL < 0.1 NG/ML (0.8-2.0)
[2022-04-16 09:26] LABS: PLATELET COUNT, AUTOMATED 54 10^3/uL (150-450)
[2022-04-16 09:27] LABS: RSV AMPLIFICATION NEGATIVE (NEGATIVE)
[2022-04-16 09:55] LABS: CK-MB VALUE MASS < 1.0 NG/ML (<3.6)
[2022-04-16 09:56] LABS: CPK CREATINE PHOSPHOKINASE 14.99999 U/L (34-145)
[2022-04-16] MEDS ORDERED: URSO300C3 PO (10:40)
[2022-04-16] MEDS ORDERED: HOME MED LIST COMPLETE! XX SCH (10:45)
[2022-04-16] MEDS ORDERED: ONDANSETRON 4MG 2ML VIAL IV PRN (11:45)
[2022-04-16] MEDS: AMPICILLIN SOD/SULBACTAM SOD 3 GM in D5W MINI-BAG PLUS 100 ML IV SCH (12:41)
[2022-04-16] MEDS: NS 1,000 ML IV SCH (12:41)
[2022-04-16] MEDS: SERTRALINE HCL 50 MG TAB PO SCH (12:42)
[2022-04-16] MEDS: PANTOPRAZOLE 40MG VIAL IV SCH ×2 (12:42→20:53)
[2022-04-16] MEDS: LEVOTHYROXINE 100MCG TABLET (0.1MG) PO SCH (12:42)
[2022-04-16] MEDS: SUCRALFATE SUSP 1GM/10ML UD PO SCH ×3 (12:42→20:13)
[2022-04-16] MEDS: METOPROLOL TART 12.5 MG PER 1/2 TAB PO SCH ×2 (12:42→20:14)
[2022-04-16] MEDS: FOLIC ACID 1MG TAB PO SCH (12:42)
[2022-04-16] MEDS: MORPHINE 2 MG/ML 1ML VIAL IV PRN ×2 (12:42→20:55)
[2022-04-16 13:04] LABS: CK-MB VALUE MASS < 1.0 NG/ML (<3.6); CPK CREATINE PHOSPHOKINASE 14.99999 U/L (34-145)
[2022-04-16] MEDS: ursodioL 300MG CAP PO SCH ×2 (13:26→20:13)
[2022-04-16] MEDS ORDERED: GI COCKTAIL 50ML BTL(HYOSCYAMINE/MAALOX/LIDOCAINE VISCOUS)(1:3:1) PO ONE (14:20)
[2022-04-16] MEDS: DOXYCYCLINE HYCLATE 100 MG in D5W MINI-BAG PLUS 100 ML IV SCH (14:25)
[2022-04-16 16:30] VITALS: BP 108/57
[2022-04-16 20:00] VITALS: BP 95/50
[2022-04-16] MEDS: ATORVASTATIN 20 MG TAB PO SCH (20:13)
[2022-04-16] MEDS: MIRTAZAPINE 7.5MG PER 1/2 TABLET PO SCH (20:14)
[2022-04-16 22:00] VITALS: O2SAT 98
[2022-04-16 23:00] VITALS: O2SAT 99
[2022-04-17] VITALS (30 sets, daily range): BP systolic 93–124; BP diastolic 50–73; O2SAT 75–100
[2022-04-17] MEDS: AMPICILLIN SOD/SULBACTAM SOD 3 GM in D5W MINI-BAG PLUS 100 ML IV SCH ×2 (01:22→13:08)
[2022-04-17] MEDS: NS 1,000 ML IV SCH ×2 (01:22→20:57)
[2022-04-17] MEDS: DOXYCYCLINE HYCLATE 100 MG in D5W MINI-BAG PLUS 100 ML IV SCH ×2 (02:07→14:46)
[2022-04-17 05:21] LABS: HEMATOCRIT 21.7 % (36.0-47.0); MEAN CORPUSCULAR HEMOGLOBIN 29.8 pg (27.0-33.0); MEAN CORPUSCULAR HGB CONC 31.3 g/dl (32.0-36.5); MEAN CORPUSCULAR VOLUME 95.2 fl (80.0-96.0); RED BLOOD COUNT 2.28 10^6/uL (4.00-5.40); WHITE BLOOD COUNT 5.4 10^3/uL (4.0-10.0)
[2022-04-17] MEDS: LEVOTHYROXINE 100MCG TABLET (0.1MG) PO SCH (05:32)
[2022-04-17 05:37] LABS: MAGNESIUM LEVEL 1.9 MG/DL (1.8-2.4)
[2022-04-17 05:41] LABS: ALBUMIN 2.6 G/DL (3.2-5.2); BILIRUBIN,TOTAL 0.6 MG/DL (0.3-1.2); CALCIUM LEVEL 8.1 MG/DL (8.3-10.6); CREATININE FOR GFR 1.64 MG/DL (0.55-1.30); GLOMERULAR FILTRATION RATE 31.5 (>32); POTASSIUM SERUM 4.3 MMOL/L (3.5-5.1); TOTAL PROTEIN 5.2 G/DL (5.7-8.2)
[2022-04-17 05:42] LABS: HEMOGLOBIN 6.8 g/dl (12.0-15.5)
[2022-04-17 05:44] LABS: PLATELET COUNT, AUTOMATED 53 10^3/uL (150-450)
[2022-04-17] MEDS: FOLIC ACID 1MG TAB PO SCH ×2 (08:10→13:08)
[2022-04-17] MEDS: ursodioL 300MG CAP PO SCH ×3 (08:10→20:53)
[2022-04-17] MEDS: SERTRALINE HCL 50 MG TAB PO SCH ×2 (08:10→13:08)
[2022-04-17] MEDS: SUCRALFATE SUSP 1GM/10ML UD PO SCH ×5 (08:10→21:00)
[2022-04-17] MEDS: METOPROLOL TART 12.5 MG PER 1/2 TAB PO SCH ×3 (08:10→20:52)
[2022-04-17] MEDS ORDERED: E-Z-PAQUE 96% w/w SUSP 176GM BTL As Ordered ONE (08:54)
[2022-04-17] MEDS: PANTOPRAZOLE 40MG VIAL IV SCH ×2 (10:39→20:53)
[2022-04-17] MEDS ORDERED: VANCOMYCIN HCL 1,000 MG, VIAL MATE ADAPTER 1 EACH in D5W 250 ML IV ONE (16:00)
[2022-04-17 16:56] LABS: PERCENT SATURATION 8.9 % (13.2-45.0)
[2022-04-17 16:59] LABS: FERRITIN 128.4 NG/ML (7.3-270.7)
[2022-04-17 19:11] LABS: HEMATOCRIT 32.4 % (36.0-47.0)
[2022-04-17 19:24] LABS: HEMOGLOBIN 10.3 g/dl (12.0-15.5)
[2022-04-17] MEDS: ATORVASTATIN 20 MG TAB PO SCH (20:53)
[2022-04-17] MEDS: MIRTAZAPINE 7.5MG PER 1/2 TABLET PO SCH (20:53)
[2022-04-17] MEDS: cefTRIAXone SOD 2 GM in D5W MINI-BAG PLUS 50 ML IV SCH (20:54)
[2022-04-18] VITALS (30 sets, daily range): BP systolic 101–131; BP diastolic 56–75; O2SAT 93–97
[2022-04-18 04:22] LABS: EOS % 0.4 % (0.0-3.0); HEMATOCRIT 29.8 % (36.0-47.0); HEMOGLOBIN 9.8 g/dl (12.0-15.5); LYMPH # 0.5 10^3/uL (1.5-5.0); LYMPH % 6.4 % (24.0-44.0); MEAN CORPUSCULAR HEMOGLOBIN 29.9 pg (27.0-33.0); MEAN CORPUSCULAR HGB CONC 32.9 g/dl (32.0-36.5); MEAN CORPUSCULAR VOLUME 90.9 fl (80.0-96.0); NEUTROPHILS # 6.2 10^3/uL (1.5-8.5); NEUTROPHILS % 78.4 % (36.0-66.0); RED BLOOD COUNT 3.28 10^6/uL (4.00-5.40); WHITE BLOOD COUNT 7.9 10^3/uL (4.0-10.0)
[2022-04-18 04:36] LABS: PLATELET COUNT, AUTOMATED 92 10^3/uL (150-450)
[2022-04-18 04:43] LABS: CALCIUM LEVEL 7.9 MG/DL (8.3-10.6); CREATININE FOR GFR 1.21 MG/DL (0.55-1.30); GLOMERULAR FILTRATION RATE 44.8 (>32)
[2022-04-18] MEDS: LEVOTHYROXINE 100MCG TABLET (0.1MG) PO SCH (05:19)
[2022-04-18] MEDS: MORPHINE 2 MG/ML 1ML VIAL IV PRN (06:26)
[2022-04-18] MEDS ORDERED: propofoL 200 MG/20 ML VIAL As Ordered ONE (07:00)
[2022-04-18] MEDS ORDERED: LIDOCAINE 2% 100MG/5ML SDV (FOR ANES.) As Ordered ONE (07:00)
[2022-04-18] MEDS ORDERED: VANCOMYCIN HCL 750 MG, VIAL MATE ADAPTER 1 EACH in D5W 250 ML IV SCH (10:00)
[2022-04-18] MEDS: METOPROLOL TART 12.5 MG PER 1/2 TAB PO SCH ×2 (10:02→21:56)
[2022-04-18] MEDS: ursodioL 300MG CAP PO SCH ×2 (10:02→21:55)
[2022-04-18] MEDS: SERTRALINE HCL 50 MG TAB PO SCH (10:03)
[2022-04-18] MEDS: SUCRALFATE SUSP 1GM/10ML UD PO SCH ×4 (10:03→21:56)
[2022-04-18] MEDS: FOLIC ACID 1MG TAB PO SCH (10:04)
[2022-04-18] MEDS: PANTOPRAZOLE 40MG VIAL IV SCH ×2 (10:04→21:56)
[2022-04-18] MEDS: DIGOXIN 0.125 MG TAB PO SCH (11:44)
[2022-04-18] MEDS: PERCOCET 5MG/325MG TAB PO PRN (11:44)
[2022-04-18] MEDS ORDERED: VANCOMYCIN HCL 1,000 MG, VIAL MATE ADAPTER 1 EACH in D5W 250 ML IV SCH (12:00)
[2022-04-18] MEDS: NS 1,000 ML IV SCH (14:18)
[2022-04-18] MEDS: ATORVASTATIN 20 MG TAB PO SCH (21:55)
[2022-04-18] MEDS: MIRTAZAPINE 7.5MG PER 1/2 TABLET PO SCH (21:55)
[2022-04-18] MEDS: cefTRIAXone SOD 2 GM in D5W MINI-BAG PLUS 50 ML IV SCH (21:56)
[2022-04-19] VITALS (12 sets, daily range): BP systolic 122–162; BP diastolic 63–75; O2SAT 93–95
[2022-04-19 04:10] LABS: BASO % 0.1 % (0.0-1.0); EOS % 0.4 % (0.0-3.0); HEMATOCRIT 28.9 % (36.0-47.0); HEMOGLOBIN 9.2 g/dl (12.0-15.5); LYMPH # 0.5 10^3/uL (1.5-5.0); LYMPH % 6.9 % (24.0-44.0); MEAN CORPUSCULAR HEMOGLOBIN 29.1 pg (27.0-33.0); MEAN CORPUSCULAR HGB CONC 31.8 g/dl (32.0-36.5); MEAN CORPUSCULAR VOLUME 91.5 fl (80.0-96.0); MONO % 12.9 % (2.0-8.0); NEUTROPHILS # 5.9 10^3/uL (1.5-8.5); NEUTROPHILS % 77.6 % (36.0-66.0); PLATELET COUNT, AUTOMATED 124 10^3/uL (150-450); RED BLOOD COUNT 3.16 10^6/uL (4.00-5.40); WHITE BLOOD COUNT 7.6 10^3/uL (4.0-10.0)
[2022-04-19 04:33] LABS: CALCIUM LEVEL 8.2 MG/DL (8.3-10.6); CREATININE FOR GFR 1.11 MG/DL (0.55-1.30); GLOMERULAR FILTRATION RATE 49.5 (>32); POTASSIUM SERUM 4.1 MMOL/L (3.5-5.1)
[2022-04-19] MEDS: LEVOTHYROXINE 100MCG TABLET (0.1MG) PO SCH (06:26)
[2022-04-19] MEDS: NS 1,000 ML IV SCH (06:26)
[2022-04-19] MEDS: SUCRALFATE SUSP 1GM/10ML UD PO SCH ×4 (08:19→21:42)
[2022-04-19] MEDS: PANTOPRAZOLE 40MG VIAL IV SCH ×2 (08:19→21:42)
[2022-04-19] MEDS: METOPROLOL TART 12.5 MG PER 1/2 TAB PO SCH ×2 (08:19→21:42)
[2022-04-19] MEDS: DIGOXIN 0.125 MG TAB PO SCH (08:20)
[2022-04-19] MEDS: ursodioL 300MG CAP PO SCH ×2 (08:20→21:42)
[2022-04-19] MEDS: FOLIC ACID 1MG TAB PO SCH (08:20)
[2022-04-19] MEDS: SERTRALINE HCL 50 MG TAB PO SCH (08:20)
[2022-04-19] MEDS: PERCOCET 5MG/325MG TAB PO PRN (08:20)
[2022-04-19] MEDS: MIRALAX *UNIT DOSE* 17GM PACKET PO SCH (17:12)
[2022-04-19] MEDS: ASPIRIN 81MG ENTERIC TABLET PO SCH (17:12)
[2022-04-19] MEDS ORDERED: DOCUSATE SODIUM 100MG CAPSULE PO SCH (21:00)
[2022-04-19] MEDS: cefTRIAXone SOD 2 GM in D5W MINI-BAG PLUS 50 ML IV SCH (21:42)
[2022-04-19] MEDS: ATORVASTATIN 20 MG TAB PO SCH (21:42)
[2022-04-19] MEDS: MIRTAZAPINE 7.5MG PER 1/2 TABLET PO SCH (21:42)
[2022-04-20 04:12] LABS: BASO % 0.2 % (0.0-1.0); EOS % 0.5 % (0.0-3.0); HEMATOCRIT 28.8 % (36.0-47.0); HEMOGLOBIN 9.1 g/dl (12.0-15.5); LYMPH # 0.5 10^3/uL (1.5-5.0); LYMPH % 7.7 % (24.0-44.0); MEAN CORPUSCULAR HGB CONC 31.6 g/dl (32.0-36.5); MEAN CORPUSCULAR VOLUME 91.7 fl (80.0-96.0); MONO # 0.7 10^3/uL (0.0-0.8); MONO % 11.6 % (2.0-8.0); NEUTROPHILS # 4.7 10^3/uL (1.5-8.5); NEUTROPHILS % 75.8 % (36.0-66.0); PLATELET COUNT, AUTOMATED 122 10^3/uL (150-450); RED BLOOD COUNT 3.14 10^6/uL (4.00-5.40); WHITE BLOOD COUNT 6.2 10^3/uL (4.0-10.0)
[2022-04-20 04:32] LABS: CALCIUM LEVEL 8.1 MG/DL (8.3-10.6); CREATININE FOR GFR 0.97 MG/DL (0.55-1.30); GLOMERULAR FILTRATION RATE 57.8 (>32); POTASSIUM SERUM 3.9 MMOL/L (3.5-5.1)
[2022-04-20 04:37] VITALS: BP 140/70
[2022-04-20] MEDS: LEVOTHYROXINE 100MCG TABLET (0.1MG) PO SCH (05:48)
[2022-04-20 07:35] VITALS: BP 148/71
[2022-04-20] MEDS: MIRALAX *UNIT DOSE* 17GM PACKET PO SCH (09:55)
[2022-04-20] MEDS: DOCUSATE SOD LIQ 100MG/10ML UDC PO SCH ×2 (09:55→21:32)
[2022-04-20] MEDS: SUCRALFATE SUSP 1GM/10ML UD PO SCH ×5 (09:55→21:32)
[2022-04-20] MEDS: DIGOXIN 0.125 MG TAB PO SCH (09:56)
[2022-04-20] MEDS: PERCOCET 5MG/325MG TAB PO PRN ×2 (09:56→21:41)
[2022-04-20] MEDS: ASPIRIN 81MG ENTERIC TABLET PO SCH (09:56)
[2022-04-20] MEDS: FOLIC ACID 1MG TAB PO SCH (09:56)
[2022-04-20] MEDS: METOPROLOL TART 12.5 MG PER 1/2 TAB PO SCH ×2 (09:56→21:44)
[2022-04-20] MEDS: ursodioL 300MG CAP PO SCH ×2 (09:57→21:32)
[2022-04-20] MEDS: SERTRALINE HCL 50 MG TAB PO SCH (09:57)
[2022-04-20] MEDS: PANTOPRAZOLE 40MG VIAL IV SCH (10:01)
[2022-04-20] MEDS ORDERED: BISACODYL 10MG SUPP PR PRN (10:05)
[2022-04-20 16:07] VITALS: BP 135/64
[2022-04-20 20:00] VITALS: BP 156/68
[2022-04-20] MEDS: cefTRIAXone SOD 2 GM in D5W MINI-BAG PLUS 50 ML IV SCH (21:31)
[2022-04-20] MEDS: ATORVASTATIN 20 MG TAB PO SCH (21:32)
[2022-04-20] MEDS: MIRTAZAPINE 7.5MG PER 1/2 TABLET PO SCH (21:32)
[2022-04-20] MEDS: HEPARIN SOD (PORCINE) 5000UNITS/ML 1ML VIAL/SYRINGE SQ SCH (21:32)
[2022-04-21 04:00] VITALS: BP 153/67
[2022-04-21 05:29] LABS: BASO % 0.1 % (0.0-1.0); EOS % 0.4 % (0.0-3.0); HEMATOCRIT 30.5 % (36.0-47.0); HEMOGLOBIN 9.7 g/dl (12.0-15.5); LYMPH # 0.5 10^3/uL (1.5-5.0); LYMPH % 6.4 % (24.0-44.0); MEAN CORPUSCULAR HEMOGLOBIN 29.6 pg (27.0-33.0); MEAN CORPUSCULAR HGB CONC 31.8 g/dl (32.0-36.5); MONO # 0.9 10^3/uL (0.0-0.8); MONO % 12.8 % (2.0-8.0); NEUTROPHILS # 5.7 10^3/uL (1.5-8.5); NEUTROPHILS % 78.3 % (36.0-66.0); PLATELET COUNT, AUTOMATED 130 10^3/uL (150-450); RED BLOOD COUNT 3.28 10^6/uL (4.00-5.40); WHITE BLOOD COUNT 7.3 10^3/uL (4.0-10.0)
[2022-04-21 05:52] LABS: BLOOD UREA NITROGEN 9 MG/DL (9-23); CARBON DIOXIDE LEVEL 24 MMOL/L (20-31); CHLORIDE LEVEL 107 MMOL/L (98-107); CREATININE FOR GFR 0.91 MG/DL (0.55-1.30); GLOMERULAR FILTRATION RATE > 60.0 (>32); GLUCOSE, FASTING 96 MG/DL (74-106); POTASSIUM SERUM 3.9 MMOL/L (3.5-5.1); SODIUM LEVEL 137 MMOL/L (136-145)
[2022-04-21] MEDS: LEVOTHYROXINE 100MCG TABLET (0.1MG) PO SCH (06:34)
[2022-04-21 07:27] VITALS: BP 149/95
[2022-04-21] MEDS: MIRALAX *UNIT DOSE* 17GM PACKET PO SCH (09:37)
[2022-04-21] MEDS: ursodioL 300MG CAP PO SCH ×2 (09:37→20:15)
[2022-04-21] MEDS: HEPARIN SOD (PORCINE) 5000UNITS/ML 1ML VIAL/SYRINGE SQ SCH ×2 (09:37→20:15)
[2022-04-21] MEDS: SUCRALFATE SUSP 1GM/10ML UD PO SCH ×2 (09:37→13:00)
[2022-04-21] MEDS: SERTRALINE HCL 50 MG TAB PO SCH (09:38)
[2022-04-21] MEDS: ASPIRIN 81MG ENTERIC TABLET PO SCH (09:38)
[2022-04-21] MEDS: PERCOCET 5MG/325MG TAB PO PRN ×2 (09:38→22:40)
[2022-04-21] MEDS: METOPROLOL TART 12.5 MG PER 1/2 TAB PO SCH ×2 (09:38→20:15)
[2022-04-21] MEDS: DOCUSATE SOD LIQ 100MG/10ML UDC PO SCH (09:38)
[2022-04-21] MEDS: DIGOXIN 0.125 MG TAB PO SCH (09:39)
[2022-04-21] MEDS: FOLIC ACID 1MG TAB PO SCH (09:39)
[2022-04-21] MEDS: PANTOPRAZOLE 40MG TAB (PROTONIX) PO SCH (09:39)
[2022-04-21] MEDS ORDERED: LIDOCAINE 1% MDV 20ML VIAL As Ordered ONE (12:13)
[2022-04-21] MEDS ORDERED: SODIUM CHLORIDE 0.9% INJ 10 ML SYR IV PRN (14:00)
[2022-04-21 15:26] VITALS: BP 144/69
[2022-04-21 17:06] LABS: BODY FLUID CULTURE Not indicated. (.); LEGIONELLA ANTIGEN URINE Negative (Negative); ORGANISM ID Not indicated. (.); SPECIMEN SOURCE Urine (.); URINE STREP PNEUMONIAE ANTIGEN Negative (Negative)
[2022-04-21] MEDS: SUCRALFATE 1 GM TAB PO SCH ×2 (17:13→20:15)
[2022-04-21] MEDS: SODIUM CHLORIDE 0.9% INJ 10 ML SYR IV SCH (17:13)
[2022-04-21 19:39] VITALS: BP 131/60
[2022-04-21] MEDS: ATORVASTATIN 20 MG TAB PO SCH (20:14)
[2022-04-21] MEDS: DOCUSATE SODIUM 100MG CAPSULE PO SCH (20:14)
[2022-04-21] MEDS: MIRTAZAPINE 7.5MG PER 1/2 TABLET PO SCH (20:15)
[2022-04-21] MEDS: cefTRIAXone SOD 2 GM in D5W MINI-BAG PLUS 50 ML IV SCH (20:15)
[2022-04-22 04:00] VITALS: BP 120/59
[2022-04-22 04:25] LABS: BASO % 0.1 % (0.0-1.0); EOS % 0.4 % (0.0-3.0); HEMATOCRIT 29.5 % (36.0-47.0); HEMOGLOBIN 9.4 g/dl (12.0-15.5); LYMPH # 0.5 10^3/uL (1.5-5.0); LYMPH % 6.8 % (24.0-44.0); MEAN CORPUSCULAR HEMOGLOBIN 29.7 pg (27.0-33.0); MEAN CORPUSCULAR HGB CONC 31.9 g/dl (32.0-36.5); MEAN CORPUSCULAR VOLUME 93.4 fl (80.0-96.0); MONO # 0.8 10^3/uL (0.0-0.8); MONO % 10.3 % (2.0-8.0); NEUTROPHILS # 6.4 10^3/uL (1.5-8.5); PLATELET COUNT, AUTOMATED 129 10^3/uL (150-450); RED BLOOD COUNT 3.16 10^6/uL (4.00-5.40); WHITE BLOOD COUNT 7.8 10^3/uL (4.0-10.0)
[2022-04-22 04:50] LABS: BLOOD UREA NITROGEN 9 MG/DL (9-23); CALCIUM LEVEL 7.9 MG/DL (8.3-10.6); CARBON DIOXIDE LEVEL 25 MMOL/L (20-31); CHLORIDE LEVEL 107 MMOL/L (98-107); CREATININE FOR GFR 0.84 MG/DL (0.55-1.30); GLOMERULAR FILTRATION RATE > 60.0 (>32); GLUCOSE, FASTING 93 MG/DL (74-106); POTASSIUM SERUM 3.9 MMOL/L (3.5-5.1); SODIUM LEVEL 139 MMOL/L (136-145)
[2022-04-22] MEDS: LEVOTHYROXINE 100MCG TABLET (0.1MG) PO SCH (05:25)
[2022-04-22] MEDS: SODIUM CHLORIDE 0.9% INJ 10 ML SYR IV SCH (05:25)
[2022-04-22 07:18] VITALS: BP 140/69
[2022-04-22] MEDS: SUCRALFATE 1 GM TAB PO SCH ×3 (07:30→17:35)
[2022-04-22] MEDS: HEPARIN SOD (PORCINE) 5000UNITS/ML 1ML VIAL/SYRINGE SQ SCH (09:00)
[2022-04-22] MEDS: MIRALAX *UNIT DOSE* 17GM PACKET PO SCH (09:11)
[2022-04-22] MEDS: FOLIC ACID 1MG TAB PO SCH (09:12)
[2022-04-22] MEDS: ursodioL 300MG CAP PO SCH (09:12)
[2022-04-22] MEDS: DOCUSATE SODIUM 100MG CAPSULE PO SCH (09:12)
[2022-04-22] MEDS: ASPIRIN 81MG ENTERIC TABLET PO SCH (09:12)
[2022-04-22] MEDS: PANTOPRAZOLE 40MG TAB (PROTONIX) PO SCH (09:12)
[2022-04-22] MEDS: SERTRALINE HCL 50 MG TAB PO SCH (09:12)
[2022-04-22 09:13] VITALS: BP 154/73
[2022-04-22] MEDS: METOPROLOL TART 12.5 MG PER 1/2 TAB PO SCH (09:13)
[2022-04-22] MEDS: DIGOXIN 0.125 MG TAB PO SCH (09:13)
[2022-04-22] MEDS ORDERED: ACETAMINOPHEN TAB 650MG DOSE (2X325MG) PO PRN (09:45)
[2022-04-22] MEDS ORDERED: cefTRIAXone SOD 2 GM in D5W MINI-BAG PLUS 50 ML IV SCH (14:30)
[2022-04-22] MEDS ORDERED: COLA100C5 PO (17:31)
[2022-04-22] MEDS ORDERED: ASPI81TAEC PO (17:31)
[2022-04-22] MEDS ORDERED: PANT40TA29 PO (17:31)
[2022-04-22] MEDS ORDERED: METO1TAB87 PO (17:31)
[2022-04-22] MEDS ORDERED: SUCR1TA PO (17:31)
[2022-04-22] MEDS ORDERED: CEFTINJ2 IV (17:33)
[2022-04-22] MEDS ORDERED: FERR325T3 PO (17:53)
[2022-04-22] MEDS ORDERED: MIRA3350 PO (17:54)
== END 2022-04-22 18:40 | disposition home health service (06) | DRG 289 ==
LOC: EDBD 07:20 → EDSEX 07:20 → M ED 08:53 → M ED INP 11:37 → M PCU 16:00
PROVIDERS: ADMIT Internal Medicine; ATTEND Internal Medicine
PROC: B246ZZZ Ultrasonography of Right and Left Heart (ICD-10-PCS; 2022-04-17)
PROC: 30233N1 Transfusion of Nonautologous Red Blood Cells into Peripheral Vein, Percutaneous Approach (ICD-10-PCS; 2022-04-17)
PROC: 0DJ08ZZ Inspection of Upper Intestinal Tract, Via Natural or Artificial Opening Endoscopic (ICD-10-PCS; principal; 2022-04-18 07:30)
PROC: 02HV33Z Insertion of Infusion Device into Superior Vena Cava, Percutaneous Approach (ICD-10-PCS; 2022-04-21)
DX: I33.0 Acute and subacute infective endocarditis (principal); I50.32 Chronic diastolic (congestive) heart failure; N17.9 Acute kidney failure, unspecified; I13.0 Hypertensive heart and chronic kidney disease with heart failure and stage 1 through stage 4 chronic kidney disease, or unspecified chronic kidney disease; R78.81 Bacteremia; K44.9 Diaphragmatic hernia without obstruction or gangrene; K29.70 Gastritis, unspecified, without bleeding; I48.91 Unspecified atrial fibrillation; I27.20 Pulmonary hypertension, unspecified; I35.0 Nonrheumatic aortic (valve) stenosis; F32.A Depression, unspecified; R53.1 Weakness; B95.5 Unspecified streptococcus as the cause of diseases classified elsewhere; D72.810 Lymphocytopenia; Z66 Do not resuscitate; L89.152 Pressure ulcer of sacral region, stage 2; D72.0 Genetic anomalies of leukocytes; J47.9 Bronchiectasis, uncomplicated; R16.2 Hepatomegaly with splenomegaly, not elsewhere classified; N28.1 Cyst of kidney, acquired; K40.20 Bilateral inguinal hernia, without obstruction or gangrene, not specified as recurrent; E03.9 Hypothyroidism, unspecified; D69.6 Thrombocytopenia, unspecified; R19.09 Other intra-abdominal and pelvic swelling, mass and lump; D50.9 Iron deficiency anemia, unspecified; N18.30 Chronic kidney disease, stage 3 unspecified; Z96.659 Presence of unspecified artificial knee joint; Z79.01 Long term (current) use of anticoagulants; Z79.890 Hormone replacement therapy; Z79.899 Other long term (current) drug therapy; Z88.5 Allergy status to narcotic agent; Z95.3 Presence of xenogenic heart valve; Z95.0 Presence of cardiac pacemaker

== ENCOUNTER → 2022-04-28 | Outpatient (REF) | payer MEDICARE ==
[~2022-04-28] MED LIST changes: +ASPI81TAEC PO; +CEFTINJ2 IV; +FERR325T3 PO; +MIRA3350 PO; +SUCR1TA PO
[2022-04-28 14:24] LABS: BASO % 0.2 % (0.0-1.0); HEMATOCRIT 29.9 % (36.0-47.0); LYMPH # 0.4 10^3/uL (1.5-5.0); LYMPH % 6.3 % (24.0-44.0); MEAN CORPUSCULAR HEMOGLOBIN 29.2 pg (27.0-33.0); MEAN CORPUSCULAR HGB CONC 30.1 g/dl (32.0-36.5); MEAN CORPUSCULAR VOLUME 97.1 fl (80.0-96.0); MONO # 0.7 10^3/uL (0.0-0.8); MONO % 9.9 % (2.0-8.0); NEUTROPHILS # 5.5 10^3/uL (1.5-8.5); RED BLOOD COUNT 3.08 10^6/uL (4.00-5.40); WHITE BLOOD COUNT 6.6 10^3/uL (4.0-10.0)
[2022-04-28 14:42] LABS: ALKALINE PHOSPHATASE 124 U/L (46-116); ALT/SGPT 11 U/L (7.0-40); AST/SGOT 20 U/L (<34); BILIRUBIN,TOTAL 0.3 MG/DL (0.3-1.2); BLOOD UREA NITROGEN 18 MG/DL (9-23); CALCIUM LEVEL 8.4 MG/DL (8.3-10.6); CARBON DIOXIDE LEVEL 31 MMOL/L (20-31); CHLORIDE LEVEL 103 MMOL/L (98-107); CREATININE FOR GFR 0.91 MG/DL (0.55-1.30); ERYTHROCYTE SEDIMENTATION RATE 23 mm/hr (0-30); GLOMERULAR FILTRATION RATE > 60.0 (>32); GLUCOSE, FASTING 105 MG/DL (74-106); POTASSIUM SERUM 4.2 MMOL/L (3.5-5.1); SODIUM LEVEL 140 MMOL/L (136-145)
[2022-04-28 14:46] LABS: PLATELET COUNT, AUTOMATED 86 10^3/uL (150-450)
== END ==
LOC: M SHH 13:17
PROVIDERS: ATTEND Internal Medicine Infectious Disease
DX: A49.1 Streptococcal infection, unspecified site (principal)

== ENCOUNTER → 2022-05-05 | Outpatient (REF) | payer MEDICARE ==
[2022-05-05 12:26] LABS: BASO % 0.2 % (0.0-1.0); EOS % 0.7 % (0.0-3.0); HEMOGLOBIN 8.1 g/dl (12.0-15.5); LYMPH # 0.4 10^3/uL (1.5-5.0); LYMPH % 10.4 % (24.0-44.0); MEAN CORPUSCULAR HEMOGLOBIN 29.7 pg (27.0-33.0); MEAN CORPUSCULAR HGB CONC 31.2 g/dl (32.0-36.5); MEAN CORPUSCULAR VOLUME 95.2 fl (80.0-96.0); MONO # 0.5 10^3/uL (0.0-0.8); MONO % 12.7 % (2.0-8.0); NEUTROPHILS # 3.2 10^3/uL (1.5-8.5); NEUTROPHILS % 75.1 % (36.0-66.0); RED BLOOD COUNT 2.73 10^6/uL (4.00-5.40); WHITE BLOOD COUNT 4.3 10^3/uL (4.0-10.0)
[2022-05-05 12:34] LABS: PLATELET COUNT, AUTOMATED 68 10^3/uL (150-450)
[2022-05-05 12:48] LABS: ALBUMIN 3.2 G/DL (3.2-5.2); ALKALINE PHOSPHATASE 127 U/L (46-116); ALT/SGPT < 9 U/L (7.0-40); AST/SGOT 17 U/L (<34); BILIRUBIN,TOTAL 0.3 MG/DL (0.3-1.2); BLOOD UREA NITROGEN 23 MG/DL (9-23); CALCIUM LEVEL 8.7 MG/DL (8.3-10.6); CARBON DIOXIDE LEVEL 30 MMOL/L (20-31); CHLORIDE LEVEL 104 MMOL/L (98-107); CREATININE FOR GFR 1.21 MG/DL (0.55-1.30); GLOMERULAR FILTRATION RATE 44.8 (>32); GLUCOSE, FASTING 111 MG/DL (74-106); POTASSIUM SERUM 4.5 MMOL/L (3.5-5.1); SODIUM LEVEL 140 MMOL/L (136-145); TOTAL PROTEIN 6.2 G/DL (5.7-8.2)
[2022-05-05 12:55] LABS: ERYTHROCYTE SEDIMENTATION RATE 41 mm/hr (0-30)
== END ==
LOC: M SHH 11:47
PROVIDERS: ATTEND Internal Medicine Infectious Disease
DX: A49.1 Streptococcal infection, unspecified site (principal)

== ENCOUNTER → 2022-05-12 | Outpatient (REF) | payer MEDICARE ==
[2022-05-12 16:13] LABS: BASO % 0.2 % (0.0-1.0); EOS % 0.4 % (0.0-3.0); HEMOGLOBIN 7.3 g/dl (12.0-15.5); LYMPH # 0.5 10^3/uL (1.5-5.0); LYMPH % 9.8 % (24.0-44.0); MEAN CORPUSCULAR HEMOGLOBIN 29.7 pg (27.0-33.0); MEAN CORPUSCULAR HGB CONC 30.4 g/dl (32.0-36.5); MEAN CORPUSCULAR VOLUME 97.6 fl (80.0-96.0); MONO # 0.6 10^3/uL (0.0-0.8); MONO % 10.5 % (2.0-8.0); NEUTROPHILS # 4.3 10^3/uL (1.5-8.5); NEUTROPHILS % 78.5 % (36.0-66.0); PLATELET COUNT, AUTOMATED 134 10^3/uL (150-450); RED BLOOD COUNT 2.46 10^6/uL (4.00-5.40); WHITE BLOOD COUNT 5.4 10^3/uL (4.0-10.0)
[2022-05-12 16:25] LABS: ALBUMIN 3.3 G/DL (3.2-5.2); ALKALINE PHOSPHATASE 137 U/L (46-116); ALT/SGPT 10 U/L (7.0-40); AST/SGOT 17 U/L (<34); BILIRUBIN,TOTAL 0.3 MG/DL (0.3-1.2); BLOOD UREA NITROGEN 27 MG/DL (9-23); CALCIUM LEVEL 8.1 MG/DL (8.3-10.6); CARBON DIOXIDE LEVEL 28 MMOL/L (20-31); CHLORIDE LEVEL 104 MMOL/L (98-107); CREATININE FOR GFR 1.27 MG/DL (0.55-1.30); GLOMERULAR FILTRATION RATE 42.4 (>32); GLUCOSE, FASTING 83 MG/DL (74-106); POTASSIUM SERUM 4.8 MMOL/L (3.5-5.1); SODIUM LEVEL 139 MMOL/L (136-145); TOTAL PROTEIN 6.3 G/DL (5.7-8.2)
[2022-05-12 16:36] LABS: ERYTHROCYTE SEDIMENTATION RATE 19 mm/hr (0-30)
[2022-05-13 13:33] LABS: IRON (FE) 50 UG/DL (50-170); PERCENT SATURATION 20.1 % (13.2-45.0); TOTAL IRON BINDING CAPACITY 249 UG/DL (250-425)
[2022-05-13 13:36] LABS: FOLATE > 24.0 NG/ML (>5.4); VITAMIN B12 LEVEL 453 PG/ML (211-911)
== END ==
LOC: M LAB REF 15:33
PROVIDERS: ATTEND Internal Medicine Infectious Disease
DX: A49.1 Streptococcal infection, unspecified site (principal); D50.9 Iron deficiency anemia, unspecified

== ENCOUNTER → 2022-05-19 | Outpatient (REF) | payer MEDICARE ==
[2022-05-19 13:07] LABS: BASO % 0.2 % (0.0-1.0); EOS % 0.4 % (0.0-3.0); LYMPH # 0.4 10^3/uL (1.5-5.0); MEAN CORPUSCULAR HEMOGLOBIN 31.2 pg (27.0-33.0); MEAN CORPUSCULAR HGB CONC 31.6 g/dl (32.0-36.5); MEAN CORPUSCULAR VOLUME 98.6 fl (80.0-96.0); MONO # 0.5 10^3/uL (0.0-0.8); MONO % 10.4 % (2.0-8.0); NEUTROPHILS % 80.6 % (36.0-66.0); PLATELET COUNT, AUTOMATED 101 10^3/uL (150-450); RED BLOOD COUNT 2.15 10^6/uL (4.00-5.40)
[2022-05-19 13:19] LABS: HEMATOCRIT 21.2 % (36.0-47.0); HEMOGLOBIN 6.7 g/dl (12.0-15.5)
[2022-05-19 13:21] LABS: ERYTHROCYTE SEDIMENTATION RATE 21 mm/hr (0-30)
[2022-05-19 13:29] LABS: ALKALINE PHOSPHATASE 148 U/L (46-116); ALT/SGPT < 9 U/L (7.0-40); AST/SGOT 15 U/L (<34); BILIRUBIN,TOTAL 0.2 MG/DL (0.3-1.2); BLOOD UREA NITROGEN 24 MG/DL (9-23); CALCIUM LEVEL 8.5 MG/DL (8.3-10.6); CARBON DIOXIDE LEVEL 27 MMOL/L (20-31); CHLORIDE LEVEL 105 MMOL/L (98-107); CREATININE FOR GFR 1.19 MG/DL (0.55-1.30); GLOMERULAR FILTRATION RATE 45.7 (>32); GLUCOSE, FASTING 118 MG/DL (74-106); POTASSIUM SERUM 4.3 MMOL/L (3.5-5.1); SODIUM LEVEL 140 MMOL/L (136-145); TOTAL PROTEIN 5.9 G/DL (5.7-8.2)
== END ==
LOC: M SHH 12:16
PROVIDERS: ATTEND Internal Medicine Infectious Disease
DX: A49.1 Streptococcal infection, unspecified site (principal)

== ENCOUNTER → 2022-05-20 | Outpatient (CLI) | payer MEDICARE ==
[2022-05-20 13:42] LABS: IRON (FE) 37 UG/DL (50-170)
[2022-05-20 13:43] LABS: PERCENT SATURATION 15.4 % (13.2-45.0); TOTAL IRON BINDING CAPACITY 240 UG/DL (250-425)
[2022-05-20 13:44] LABS: VITAMIN B12 LEVEL 431 PG/ML (211-911)
[2022-05-20 13:45] LABS: FOLATE > 24.0 NG/ML (>5.4)
== END ==
LOC: M LAB 12:14
PROVIDERS: ATTEND Internal Medicine Infectious Disease
DX: D64.9 Anemia, unspecified (principal)

== ENCOUNTER 2022-05-21 10:39 | Outpatient (CLI) | payer MEDICARE ==
[~2022-05-21] VITALS: Ht 149.9 cm; Wt 63.9 kg
[2022-05-21] VITALS (7 sets, daily range): BP systolic 118–134; BP diastolic 59–63
[2022-05-21] MEDS ORDERED: FUROSEMIDE 40MG/4ML VIAL IV ONE (12:00)
[2022-05-21] MEDS ORDERED: SODIUM CHLORIDE 0.9% INJ 10 ML SYR IV PRN (12:20)
[2022-05-21] MEDS ORDERED: SODIUM CHLORIDE 0.9% INJ 10 ML SYR IV SCH (18:00)
== END 2022-05-21 12:50 | disposition home or self-care (01) ==
LOC: M INFU 10:39 → M LAB 10:39 → M INFU 12:50
PROVIDERS: ATTEND Internal Medicine Hematology
DX: D64.9 Anemia, unspecified (principal); Z88.5 Allergy status to narcotic agent
CPT/HCPCS: 36415; 36430; 86850; 86900; 86901; 86920; 96374; J1940; P9016; P9040

== ENCOUNTER → 2022-05-26 | Outpatient (REF) | payer MEDICARE ==
[2022-05-26 14:05] LABS: BASO % 0.2 % (0.0-1.0); EOS % 0.4 % (0.0-3.0); HEMATOCRIT 26.8 % (36.0-47.0); HEMOGLOBIN 8.3 g/dl (12.0-15.5); LYMPH # 0.4 10^3/uL (1.5-5.0); LYMPH % 7.3 % (24.0-44.0); MEAN CORPUSCULAR HEMOGLOBIN 30.6 pg (27.0-33.0); MEAN CORPUSCULAR VOLUME 98.9 fl (80.0-96.0); MONO # 0.5 10^3/uL (0.0-0.8); MONO % 8.9 % (2.0-8.0); NEUTROPHILS # 4.2 10^3/uL (1.5-8.5); NEUTROPHILS % 82.6 % (36.0-66.0); RED BLOOD COUNT 2.71 10^6/uL (4.00-5.40)
[2022-05-26 14:29] LABS: ALBUMIN 3.1 G/DL (3.2-5.2); ALKALINE PHOSPHATASE 153 U/L (46-116); ALT/SGPT 10 U/L (7.0-40); AST/SGOT 17 U/L (<34); BILIRUBIN,TOTAL 0.2 MG/DL (0.3-1.2); BLOOD UREA NITROGEN 23 MG/DL (9-23); CALCIUM LEVEL 8.2 MG/DL (8.3-10.6); CARBON DIOXIDE LEVEL 29 MMOL/L (20-31); CHLORIDE LEVEL 107 MMOL/L (98-107); CREATININE FOR GFR 0.92 MG/DL (0.55-1.30); GLOMERULAR FILTRATION RATE > 60.0 (>32); GLUCOSE, FASTING 130 MG/DL (74-106); POTASSIUM SERUM 4.7 MMOL/L (3.5-5.1); SODIUM LEVEL 143 MMOL/L (136-145)
[2022-05-26 15:04] LABS: PLATELET COUNT, AUTOMATED 91 10^3/uL (150-450)
[2022-05-26 15:33] LABS: ERYTHROCYTE SEDIMENTATION RATE 16 mm/hr (0-30)
== END ==
LOC: M LAB REF 13:12
PROVIDERS: ATTEND Internal Medicine Infectious Disease
DX: A49.1 Streptococcal infection, unspecified site (principal)

== ENCOUNTER 2022-10-03 11:38 | Emergency (ER) | payer MEDICARE ==
[~2022-10-03] VITALS: Ht 149.9 cm; Wt 56.4 kg
[~2022-10-03 11:38] MED LIST changes: -DOXY100C81 PO; +DOXY100C82 PO; +FERR220E10 PO; -FERR5ELX PO; +SENN-111 PO; -SENN18TA PO
[2022-10-03] MEDS ORDERED: ACETAMINOPHEN 500 MG TAB PO ONE (11:55)
[2022-10-03 17:08] VITALS: BP 121/69; TEMP 97.1; O2SAT 96
== END 2022-10-03 17:02 | disposition home or self-care (01) ==
LOC: M ED 11:38
DX: S39.012A Strain of muscle, fascia and tendon of lower back, initial encounter (principal); S70.01XA Contusion of right hip, initial encounter; S50.01XA Contusion of right elbow, initial encounter; W07.XXXA Fall from chair, initial encounter; Y92.009 Unspecified place in unspecified non-institutional (private) residence as the place of occurrence of the external cause; Y93.89 Activity, other specified; Y99.8 Other external cause status; I50.20 Unspecified systolic (congestive) heart failure; I48.91 Unspecified atrial fibrillation; I11.9 Hypertensive heart disease without heart failure; E03.9 Hypothyroidism, unspecified; I36.1 Nonrheumatic tricuspid (valve) insufficiency; Z86.718 Personal history of other venous thrombosis and embolism; Z88.5 Allergy status to narcotic agent; Z88.8 Allergy status to other drugs, medicaments and biological substances; Z79.82 Long term (current) use of aspirin; Z79.899 Other long term (current) drug therapy

== ENCOUNTER → 2023-01-15 | Outpatient (CLI) | payer MEDICARE ==
[~2023-01-15] MED LIST changes: -MIRT-62 PO; +MIRT-88 PO
== END ==
LOC: M SOG 10:33
PROVIDERS: ATTEND Orthopaedic Surgery
DX: S72.141D Displaced intertrochanteric fracture of right femur, subsequent encounter for closed fracture with routine healing (principal); M25.562 Pain in left knee; M25.561 Pain in right knee

== ENCOUNTER 2023-03-22 08:22 | Inpatient (IN) | payer MEDICARE ==
[~2023-03-22] VITALS: Ht 157.5 cm; Wt 53.4 kg
[2023-03-22] MEDS ORDERED: ALBUTEROL SULFATE 2.5MG/0.5ML INH NEB SOLN INH ONE (08:35)
[2023-03-22] MEDS ORDERED: IPRATROPIUM 0.5MG/ALBUTEROL 2.5MG INH SOL UD 3ML (DUONEB) NEB ONE (08:35)
[2023-03-22] MEDS ORDERED: cefTRIAXone SOD 2 GM in D5W MINI-BAG PLUS 50 ML IV ONE (08:50)
[2023-03-22] MEDS ORDERED: DOXYCYCLINE HYCLATE 100 MG in D5W MINI-BAG PLUS 100 ML IV ONE (08:50)
[2023-03-22] MEDS ORDERED: NS 1,000 ML IV ONE (08:50)
[2023-03-22 08:58] LABS: ABG BASE EXCESS -5.2 (-2.0-2.0); ABG HCO3 20.1 MMOL/L (22.0-26.0); ABG O2 SATURATION 92.3 % (95.0-99.0); ABG PARTIAL PRESSURE CO2 37.9 mmHg (35.0-45.0); ABG PARTIAL PRESSURE O2 73.9 mmHg (75.0-100.0); ABG STANDARD HCO3 20.1 MMOL/L. (22.0-26.0); ABG TOTAL CO2 21.2 MMOL/L (23.0-31.0); ABG pH (ARTERIAL) 7.342 UNITS (7.350-7.450)
[2023-03-22 09:13] LABS: BASO % 0.1 % (0.0-1.0); LYMPH # 0.7 10^3/uL (1.5-5.0); MEAN CORPUSCULAR HGB CONC 31.8 g/dl (32.0-36.5); MEAN CORPUSCULAR VOLUME 91.3 fl (80.0-96.0); MONO % 8.3 % (2.0-8.0); NEUTROPHILS # 28.7 10^3/uL (1.5-8.5); NEUTROPHILS % 86.9 % (36.0-66.0); PLATELET COUNT, AUTOMATED 150 10^3/uL (150-450); RED BLOOD COUNT 2.41 10^6/uL (4.00-5.40)
[2023-03-22 09:15] LABS: MONO # 2.8 10^3/uL (0.0-0.8)
[2023-03-22 09:16] LABS: WHITE BLOOD COUNT 33.1 10^3/uL (4.0-10.0)
[2023-03-22] MEDS ORDERED: NS 640 ML in IV 1 EA IV ONE (09:20)
[2023-03-22 09:24] LABS: INR 1.28; PROTHROMBIN TIME 15.6 SECONDS (12.5-14.5)
[2023-03-22 09:33] LABS: CPK CREATINE PHOSPHOKINASE 31 U/L (34-145)
[2023-03-22 09:34] LABS: ALBUMIN 3.1 G/DL (3.2-5.2); ALKALINE PHOSPHATASE 111 U/L (46-116); ALT/SGPT 28 U/L (7.0-40); AST/SGOT 33 U/L (<34); BILIRUBIN,DIRECT 0.4 MG/DL (<0.4); BILIRUBIN,TOTAL 0.8 MG/DL (0.3-1.2); BLOOD UREA NITROGEN 49 MG/DL (9-23); CALCIUM LEVEL 8.3 MG/DL (8.3-10.6); CARBON DIOXIDE LEVEL 22 MMOL/L (20-31); CHLORIDE LEVEL 101 MMOL/L (98-107); CK-MB VALUE MASS < 1.0 NG/ML (<3.6); CREATININE FOR GFR 2.01 MG/DL (0.55-1.30); GLOMERULAR FILTRATION RATE 24.9 (>32); GLUCOSE, FASTING 221 MG/DL (74-106); MB/CK RELATIVE INDEX 3.22 (< OR =4); POTASSIUM SERUM 4.7 MMOL/L (3.5-5.1); SODIUM LEVEL 132 MMOL/L (136-145); TOTAL PROTEIN 6.6 G/DL (5.7-8.2)
[2023-03-22 09:35] LABS: THYROXINE (T4) 5.6 UG/DL (4.5-10.9)
[2023-03-22 09:36] LABS: THYROID STIMULATING HORMONE 2.305 uIU/ML (0.55-4.78)
[2023-03-22 10:05] LABS: DIGOXIN LEVEL < 0.1 NG/ML (0.8-2.0)
[2023-03-22 10:22] LABS: CK-MB VALUE MASS < 1.0 NG/ML (<3.6)
[2023-03-22 10:24] LABS: CPK CREATINE PHOSPHOKINASE 37 U/L (34-145)
[2023-03-22] MEDS ORDERED: MED REC IN PROGRESS XX SCH (10:25)
[2023-03-22] MEDS ORDERED: PANTOPRAZOLE 40MG VIAL IV ONE (11:10)
[2023-03-22] MEDS ORDERED: METO25TA4 PO (11:14)
[2023-03-22] MEDS ORDERED: HOME MED LIST COMPLETE! XX SCH (11:20)
[2023-03-22 18:35] VITALS: TEMP 99.4; O2SAT 98
[2023-03-22] MEDS: IPRATROPIUM 0.5MG/ALBUTEROL 2.5MG INH SOL UD 3ML (DUONEB) NEB SCH (19:36)
[2023-03-22 20:00] VITALS: BP 116/56; TEMP 101.5; O2SAT 99
[2023-03-22] MEDS: NS 1,000 ML IV SCH (20:18)
[2023-03-22] MEDS: DOXYCYCLINE HYCLATE 100 MG in D5W MINI-BAG PLUS 100 ML IV SCH (20:19)
[2023-03-22] MEDS: methylPREDNISolone 125MG 2ML VIAL IV SCH (20:21)
[2023-03-22] MEDS: ursodioL 300MG CAP PO SCH (20:41)
[2023-03-22] MEDS: MIRTAZAPINE 7.5MG PER 1/2 TABLET PO SCH (20:41)
[2023-03-22] MEDS: ATORVASTATIN 20 MG TAB PO SCH (20:41)
[2023-03-22 21:00] VITALS: BP 117/56; O2SAT 98
[2023-03-22 22:00] VITALS: BP 111/56; O2SAT 99
[2023-03-22 23:00] VITALS: BP 114/55; O2SAT 99
[2023-03-23] VITALS (33 sets, daily range): BP systolic 103–148; BP diastolic 53–79; TEMP 97.3–100.5; O2SAT 90–99
[2023-03-23] MEDS: HEPARIN SOD (PORCINE) 5000UNITS/ML 1ML VIAL/SYRINGE SQ SCH ×4 (00:01→22:00)
[2023-03-23] MEDS: IPRATROPIUM 0.5MG/ALBUTEROL 2.5MG INH SOL UD 3ML (DUONEB) NEB SCH ×4 (01:51→19:25)
[2023-03-23 05:17] LABS: BASO % 0.1 % (0.0-1.0); EOS % 0.1 % (0.0-3.0); LYMPH # 0.2 10^3/uL (1.5-5.0); LYMPH % 1.3 % (24.0-44.0); MEAN CORPUSCULAR HGB CONC 31.9 g/dl (32.0-36.5); MONO # 0.7 10^3/uL (0.0-0.8); MONO % 5.3 % (2.0-8.0); NEUTROPHILS # 12.7 10^3/uL (1.5-8.5); NEUTROPHILS % 92.7 % (36.0-66.0); PLATELET COUNT, AUTOMATED 102 10^3/uL (150-450); WHITE BLOOD COUNT 13.7 10^3/uL (4.0-10.0)
[2023-03-23 05:20] LABS: HEMATOCRIT 18.2 % (36.0-47.0)
[2023-03-23 05:21] LABS: HEMOGLOBIN 5.8 g/dl (12.0-15.5)
[2023-03-23 05:46] LABS: CALCIUM LEVEL 8.3 MG/DL (8.3-10.6); CREATININE FOR GFR 1.69 MG/DL (0.55-1.30); GLOMERULAR FILTRATION RATE 30.4 (>32); MAGNESIUM LEVEL 2.4 MG/DL (1.8-2.4); PHOSPHORUS LEVEL 4.8 MG/DL (2.4-5.1)
[2023-03-23] MEDS: NS 1,000 ML IV SCH ×3 (06:06→23:34)
[2023-03-23] MEDS: DOXYCYCLINE HYCLATE 100 MG in D5W MINI-BAG PLUS 100 ML IV SCH ×2 (07:48→20:12)
[2023-03-23] MEDS: methylPREDNISolone 125MG 2ML VIAL IV SCH ×2 (07:48→20:11)
[2023-03-23] MEDS: SERTRALINE HCL 50 MG TAB PO SCH (09:00)
[2023-03-23] MEDS: METOPROLOL TART 12.5 MG PER 1/2 TAB PO SCH ×2 (09:00→11:18)
[2023-03-23] MEDS: SPIRONOLACTONE 25 MG TAB PO SCH (09:00)
[2023-03-23] MEDS: ursodioL 300MG CAP PO SCH ×2 (09:00→21:00)
[2023-03-23] MEDS ORDERED: cefTRIAXone SOD 2 GM in D5W MINI-BAG PLUS 50 ML IV SCH (09:00)
[2023-03-23] MEDS: LEVOTHYROXINE 100MCG TABLET (0.1MG) PO SCH ×2 (09:00→10:10)
[2023-03-23] MEDS: DIGOXIN 0.125 MG TAB PO SCH ×3 (09:00→11:20)
[2023-03-23] MEDS: FUROSEMIDE 20 MG TAB PO SCH (09:00)
[2023-03-23] MEDS: FOLIC ACID 1MG TAB PO SCH (09:00)
[2023-03-23] MEDS: PANTOPRAZOLE 40MG VIAL IV SCH (10:42)
[2023-03-23 11:03] LABS: VENOUS BASE EXCESS -5.8 (-2.0-2.0); VENOUS HCO3 19.5 MMOL/L (23.0-27.0); VENOUS O2 SATURATION 98.8 % (60.0-80.0); VENOUS PARTIAL PRESSURE CO2 37.4 mmHg (38.0-50.0); VENOUS PARTIAL PRESSURE O2 155.4 mmHg (30.0-50.0); VENOUS PH 7.335 UNITS (7.330-7.430); VENOUS STANDARD HCO3 19.7 MMOL/L; VENOUS TOTAL CO2 20.6 MMOL/L (24.0-28.0)
[2023-03-23] MEDS ORDERED: METOPROLOL 5 MG/5 ML VIAL IV STA (12:41)
[2023-03-23 17:15] LABS: MEAN CORPUSCULAR HEMOGLOBIN 30.5 pg (27.0-33.0); MEAN CORPUSCULAR HGB CONC 33.3 g/dl (32.0-36.5); MEAN CORPUSCULAR VOLUME 91.6 fl (80.0-96.0); PLATELET COUNT, AUTOMATED 105 10^3/uL (150-450); RED BLOOD COUNT 2.62 10^6/uL (4.00-5.40); WHITE BLOOD COUNT 13.3 10^3/uL (4.0-10.0)
[2023-03-23] MEDS: MIRTAZAPINE 7.5MG PER 1/2 TABLET PO SCH (21:00)
[2023-03-23] MEDS: ATORVASTATIN 20 MG TAB PO SCH (21:00)
[2023-03-23] MEDS ORDERED: DIGOXIN INJ 0.5 MG/2 ML AMP IV STA (21:34)
[2023-03-23] MEDS ORDERED: METOPROLOL TART 12.5 MG PER 1/2 TAB PO ONE (23:20)
[2023-03-24] VITALS (26 sets, daily range): BP systolic 120–169; BP diastolic 58–95; TEMP 96.9–98.1; O2SAT 87–98
[2023-03-24] MEDS: IPRATROPIUM 0.5MG/ALBUTEROL 2.5MG INH SOL UD 3ML (DUONEB) NEB SCH ×4 (02:37→19:37)
[2023-03-24 05:40] LABS: CALCIUM LEVEL 8.9 MG/DL (8.3-10.6); CREATININE FOR GFR 1.61 MG/DL (0.55-1.30); GLOMERULAR FILTRATION RATE 32.2 (>32)
[2023-03-24] MEDS: HEPARIN SOD (PORCINE) 5000UNITS/ML 1ML VIAL/SYRINGE SQ SCH ×3 (06:20→21:01)
[2023-03-24] MEDS: PIPERACILLIN/TAZOBACTAM SOD 2.25 GM in D5W MINI-BAG PLUS 50 ML IV SCH ×3 (07:47→20:02)
[2023-03-24] MEDS: methylPREDNISolone 125MG 2ML VIAL IV SCH (07:47)
[2023-03-24] MEDS: SERTRALINE HCL 50 MG TAB PO SCH (09:00)
[2023-03-24] MEDS: FUROSEMIDE 20 MG TAB PO SCH (09:00)
[2023-03-24] MEDS: ursodioL 300MG CAP PO SCH ×2 (09:00→20:01)
[2023-03-24] MEDS: FOLIC ACID 1MG TAB PO SCH (09:00)
[2023-03-24] MEDS: SPIRONOLACTONE 25 MG TAB PO SCH (09:00)
[2023-03-24] MEDS: NS 1,000 ML IV SCH ×2 (09:01→23:06)
[2023-03-24] MEDS: PANTOPRAZOLE 40MG VIAL IV SCH (09:01)
[2023-03-24] MEDS: DOXYCYCLINE HYCLATE 100 MG in D5W MINI-BAG PLUS 100 ML IV SCH ×2 (09:01→20:58)
[2023-03-24] MEDS: DIGOXIN 0.125 MG TAB PO SCH (10:30)
[2023-03-24] MEDS: METOPROLOL TART 12.5 MG PER 1/2 TAB PO SCH ×2 (10:30→20:03)
[2023-03-24] MEDS: LEVOTHYROXINE 100MCG TABLET (0.1MG) PO SCH (10:30)
[2023-03-24] MEDS ORDERED: FUROSEMIDE 20MG/2ML VIAL IV ONE (10:45)
[2023-03-24] MEDS ORDERED: ALPRAZolam 0.25 MG TAB PO PRN (19:40)
[2023-03-24] MEDS: ATORVASTATIN 20 MG TAB PO SCH (20:00)
[2023-03-24] MEDS: MIRTAZAPINE 7.5MG PER 1/2 TABLET PO SCH (20:01)
[2023-03-25] VITALS (13 sets, daily range): BP systolic 130–169; BP diastolic 65–84; TEMP 97–98.9; O2SAT 91–100
[2023-03-25] MEDS: IPRATROPIUM 0.5MG/ALBUTEROL 2.5MG INH SOL UD 3ML (DUONEB) NEB SCH ×4 (02:14→19:24)
[2023-03-25] MEDS: PIPERACILLIN/TAZOBACTAM SOD 2.25 GM in D5W MINI-BAG PLUS 50 ML IV SCH ×4 (02:31→21:41)
[2023-03-25 04:45] LABS: VENOUS BASE EXCESS -8.4 (-2.0-2.0); VENOUS HCO3 19.8 MMOL/L (23.0-27.0); VENOUS O2 SATURATION 88.2 % (60.0-80.0); VENOUS PARTIAL PRESSURE CO2 53.4 mmHg (38.0-50.0); VENOUS PARTIAL PRESSURE O2 65.8 mmHg (30.0-50.0); VENOUS PH 7.186 UNITS (7.330-7.430); VENOUS STANDARD HCO3 17.5 MMOL/L; VENOUS TOTAL CO2 21.4 MMOL/L (24.0-28.0)
[2023-03-25 04:56] LABS: BASO % 0.1 % (0.0-1.0); HEMATOCRIT 28.8 % (36.0-47.0); LYMPH # 0.3 10^3/uL (1.5-5.0); LYMPH % 1.3 % (24.0-44.0); MEAN CORPUSCULAR HEMOGLOBIN 28.8 pg (27.0-33.0); MEAN CORPUSCULAR HGB CONC 31.3 g/dl (32.0-36.5); MONO % 7.3 % (2.0-8.0); NEUTROPHILS # 22.6 10^3/uL (1.5-8.5); NEUTROPHILS % 88.5 % (36.0-66.0); PLATELET COUNT, AUTOMATED 156 10^3/uL (150-450); RED BLOOD COUNT 3.13 10^6/uL (4.00-5.40); WHITE BLOOD COUNT 25.5 10^3/uL (4.0-10.0)
[2023-03-25 04:58] LABS: MONO # 1.9 10^3/uL (0.0-0.8)
[2023-03-25 05:13] LABS: CALCIUM LEVEL 8.8 MG/DL (8.3-10.6); CREATININE FOR GFR 1.69 MG/DL (0.55-1.30); GLOMERULAR FILTRATION RATE 30.4 (>32); POTASSIUM SERUM 4.1 MMOL/L (3.5-5.1)
[2023-03-25] MEDS: HEPARIN SOD (PORCINE) 5000UNITS/ML 1ML VIAL/SYRINGE SQ SCH ×3 (06:14→21:41)
[2023-03-25] MEDS: methylPREDNISolone 125MG 2ML VIAL IV SCH (07:44)
[2023-03-25] MEDS: DOXYCYCLINE HYCLATE 100 MG in D5W MINI-BAG PLUS 100 ML IV SCH ×2 (07:45→20:29)
[2023-03-25] MEDS: SERTRALINE HCL 50 MG TAB PO SCH (08:42)
[2023-03-25] MEDS: ursodioL 300MG CAP PO SCH ×2 (08:42→20:26)
[2023-03-25] MEDS: METOPROLOL TART 12.5 MG PER 1/2 TAB PO SCH ×2 (08:42→20:32)
[2023-03-25] MEDS: DIGOXIN 0.125 MG TAB PO SCH (08:43)
[2023-03-25] MEDS: FUROSEMIDE 20 MG TAB PO SCH (08:44)
[2023-03-25] MEDS: FOLIC ACID 1MG TAB PO SCH (08:44)
[2023-03-25] MEDS: LEVOTHYROXINE 100MCG TABLET (0.1MG) PO SCH (08:44)
[2023-03-25] MEDS: SPIRONOLACTONE 25 MG TAB PO SCH (08:44)
[2023-03-25] MEDS ORDERED: CEFTAROLINE FOSAMIL 400 MG in D5W MINI-BAG PLUS 50 ML IV SCH (08:45)
[2023-03-25] MEDS: PANTOPRAZOLE 40MG VIAL IV SCH (08:45)
[2023-03-25] MEDS: NS 1,000 ML IV SCH (08:45)
[2023-03-25] MEDS ORDERED: CEFTAROLINE FOSAMIL 300 MG in D5W 50 ML IV SCH (11:00)
[2023-03-25] MEDS ORDERED: VANCOMYCIN HCL 750 MG, VIAL MATE ADAPTER 1 EACH in D5W 250 ML IV SCH (12:00)
[2023-03-25] MEDS ORDERED: FUROSEMIDE 40MG/4ML VIAL IV ONE ×2 (12:00→23:00)
[2023-03-25] MEDS ORDERED: VANCOMYCIN HCL 500 MG in D5W MINI-BAG PLUS 100 ML IV ONE (15:00)
[2023-03-25] MEDS: MIRTAZAPINE 7.5MG PER 1/2 TABLET PO SCH (20:27)
[2023-03-25] MEDS: ATORVASTATIN 20 MG TAB PO SCH (20:28)
[2023-03-25 23:30] LABS: CALCIUM LEVEL 8.8 MG/DL (8.3-10.6); CREATININE FOR GFR 1.63 MG/DL (0.55-1.30); GLOMERULAR FILTRATION RATE 31.7 (>32)
[2023-03-26] VITALS (11 sets, daily range): BP systolic 102–152; BP diastolic 56–73; TEMP 97.6–99; O2SAT 92–100
[2023-03-26] MEDS: IPRATROPIUM 0.5MG/ALBUTEROL 2.5MG INH SOL UD 3ML (DUONEB) NEB SCH ×4 (01:40→19:36)
[2023-03-26] MEDS: PIPERACILLIN/TAZOBACTAM SOD 2.25 GM in D5W MINI-BAG PLUS 50 ML IV SCH ×4 (02:41→21:52)
[2023-03-26 05:19] LABS: BASO % 0.1 % (0.0-1.0); HEMATOCRIT 27.3 % (36.0-47.0); HEMOGLOBIN 8.8 g/dl (12.0-15.5); LYMPH # 0.3 10^3/uL (1.5-5.0); LYMPH % 1.8 % (24.0-44.0); MEAN CORPUSCULAR HEMOGLOBIN 29.3 pg (27.0-33.0); MEAN CORPUSCULAR HGB CONC 32.2 g/dl (32.0-36.5); MONO # 1.5 10^3/uL (0.0-0.8); MONO % 8.7 % (2.0-8.0); NEUTROPHILS # 14.4 10^3/uL (1.5-8.5); NEUTROPHILS % 86.6 % (36.0-66.0); PLATELET COUNT, AUTOMATED 123 10^3/uL (150-450); WHITE BLOOD COUNT 16.6 10^3/uL (4.0-10.0)
[2023-03-26 05:37] LABS: CALCIUM LEVEL 8.9 MG/DL (8.3-10.6); CREATININE FOR GFR 1.64 MG/DL (0.55-1.30); GLOMERULAR FILTRATION RATE 31.5 (>32); MAGNESIUM LEVEL 1.8 MG/DL (1.8-2.4); POTASSIUM SERUM 3.9 MMOL/L (3.5-5.1)
[2023-03-26] MEDS: LEVOTHYROXINE 100MCG TABLET (0.1MG) PO SCH (06:00)
[2023-03-26] MEDS: HEPARIN SOD (PORCINE) 5000UNITS/ML 1ML VIAL/SYRINGE SQ SCH (06:17)
[2023-03-26] MEDS: DOXYCYCLINE HYCLATE 100 MG in D5W MINI-BAG PLUS 100 ML IV SCH ×2 (07:43→20:25)
[2023-03-26] MEDS: methylPREDNISolone 125MG 2ML VIAL IV SCH (07:45)
[2023-03-26 07:50] LABS: VANCOMYCIN RANDOM 11.5 UG/ML
[2023-03-26] MEDS: FOLIC ACID 1MG TAB PO SCH (08:09)
[2023-03-26] MEDS: ursodioL 300MG CAP PO SCH ×2 (08:09→20:25)
[2023-03-26] MEDS: SERTRALINE HCL 50 MG TAB PO SCH (08:09)
[2023-03-26] MEDS: SPIRONOLACTONE 25 MG TAB PO SCH (08:09)
[2023-03-26] MEDS: DIGOXIN 0.125 MG TAB PO SCH (08:09)
[2023-03-26] MEDS: METOPROLOL TART 12.5 MG PER 1/2 TAB PO SCH ×2 (08:09→20:25)
[2023-03-26] MEDS: PANTOPRAZOLE 40MG VIAL IV SCH (08:09)
[2023-03-26] MEDS: FUROSEMIDE 20 MG TAB PO SCH (08:09)
[2023-03-26] MEDS ORDERED: VANCOMYCIN HCL 750 MG, VIAL MATE ADAPTER 1 EACH in D5W 250 ML IV SCH (09:00)
[2023-03-26 11:48] LABS: PROCALCITONIN 1.12 ng/ml
[2023-03-26] MEDS: ENOXAPARIN 30MG/0.3ML SYRINGE (J1650 PER 10MG) SC SCH (13:03)
[2023-03-26] MEDS: MIRTAZAPINE 7.5MG PER 1/2 TABLET PO SCH (20:25)
[2023-03-26] MEDS: ATORVASTATIN 20 MG TAB PO SCH (20:25)
[2023-03-27] VITALS (29 sets, daily range): BP systolic 118–141; BP diastolic 58–72; TEMP 96.7–98.5; O2SAT 86–99
[2023-03-27] MEDS: IPRATROPIUM 0.5MG/ALBUTEROL 2.5MG INH SOL UD 3ML (DUONEB) NEB SCH ×4 (01:22→20:25)
[2023-03-27] MEDS: PIPERACILLIN/TAZOBACTAM SOD 2.25 GM in D5W MINI-BAG PLUS 50 ML IV SCH ×5 (02:19→21:03)
[2023-03-27] MEDS: LEVOTHYROXINE 100MCG TABLET (0.1MG) PO SCH (06:19)
[2023-03-27 07:59] LABS: BASO % 0.1 % (0.0-1.0); EOS % 0.1 % (0.0-3.0); HEMATOCRIT 26.2 % (36.0-47.0); HEMOGLOBIN 8.4 g/dl (12.0-15.5); LYMPH # 0.5 10^3/uL (1.5-5.0); LYMPH % 3.1 % (24.0-44.0); MEAN CORPUSCULAR HEMOGLOBIN 28.3 pg (27.0-33.0); MEAN CORPUSCULAR HGB CONC 32.1 g/dl (32.0-36.5); MEAN CORPUSCULAR VOLUME 88.2 fl (80.0-96.0); MONO # 1.3 10^3/uL (0.0-0.8); MONO % 7.7 % (2.0-8.0); NEUTROPHILS # 14.9 10^3/uL (1.5-8.5); NEUTROPHILS % 85.5 % (36.0-66.0); PLATELET COUNT, AUTOMATED 117 10^3/uL (150-450); RED BLOOD COUNT 2.97 10^6/uL (4.00-5.40); WHITE BLOOD COUNT 17.4 10^3/uL (4.0-10.0)
[2023-03-27 09:28] LABS: CALCIUM LEVEL 8.5 MG/DL (8.3-10.6); CREATININE FOR GFR 1.65 MG/DL (0.55-1.30); GLOMERULAR FILTRATION RATE 31.3 (>32); POTASSIUM SERUM 3.4 MMOL/L (3.5-5.1)
[2023-03-27] MEDS: METOPROLOL TART 12.5 MG PER 1/2 TAB PO SCH ×2 (10:22→21:03)
[2023-03-27] MEDS: ENOXAPARIN 30MG/0.3ML SYRINGE (J1650 PER 10MG) SC SCH (10:22)
[2023-03-27] MEDS: OMEPRAZOLE 20MG CAP PO SCH (10:22)
[2023-03-27] MEDS: FOLIC ACID 1MG TAB PO SCH (10:23)
[2023-03-27] MEDS: DIGOXIN 0.125 MG TAB PO SCH (10:23)
[2023-03-27] MEDS: ursodioL 300MG CAP PO SCH ×2 (10:23→21:03)
[2023-03-27] MEDS: dexAMETHasone 2 MG TAB PO SCH (10:23)
[2023-03-27] MEDS: SERTRALINE HCL 50 MG TAB PO SCH (10:23)
[2023-03-27] MEDS ORDERED: LR 500 ML IV ONE (11:05)
[2023-03-27] MEDS ORDERED: POTASSIUM CHLORIDE 10MEQ SR TABLET PO ONE (11:10)
[2023-03-27] MEDS ORDERED: D5W 1,000 ML IV SCH (12:00)
[2023-03-27 14:29] LABS: VENOUS BASE EXCESS 2.3 (-2.0-2.0); VENOUS HCO3 27.5 MMOL/L (23.0-27.0); VENOUS O2 SATURATION 99.2 % (60.0-80.0); VENOUS PARTIAL PRESSURE CO2 45.8 mmHg (38.0-50.0); VENOUS PARTIAL PRESSURE O2 190.7 mmHg (30.0-50.0); VENOUS PH 7.397 UNITS (7.330-7.430); VENOUS STANDARD HCO3 26.6 MMOL/L; VENOUS TOTAL CO2 28.9 MMOL/L (24.0-28.0)
[2023-03-27] MEDS: SODIUM CHLORIDE 0.9% INJ 10 ML SYR IV SCH ×2 (14:29→15:04)
[2023-03-27] MEDS: MIRTAZAPINE 7.5MG PER 1/2 TABLET PO SCH (21:03)
[2023-03-27] MEDS: ATORVASTATIN 20 MG TAB PO SCH (21:03)
[2023-03-28] VITALS (34 sets, daily range): BP systolic 130–160; BP diastolic 62–80; TEMP 97.5–99.4; O2SAT 82–100
[2023-03-28] MEDS: IPRATROPIUM 0.5MG/ALBUTEROL 2.5MG INH SOL UD 3ML (DUONEB) NEB SCH ×4 (02:11→19:43)
[2023-03-28] MEDS: PIPERACILLIN/TAZOBACTAM SOD 2.25 GM in D5W MINI-BAG PLUS 50 ML IV SCH ×4 (02:37→20:55)
[2023-03-28] MEDS: LEVOTHYROXINE 100MCG TABLET (0.1MG) PO SCH (05:43)
[2023-03-28 06:13] LABS: HEMOGLOBIN 8.5 g/dl (12.0-15.5); MEAN CORPUSCULAR HEMOGLOBIN 28.5 pg (27.0-33.0); MEAN CORPUSCULAR HGB CONC 31.5 g/dl (32.0-36.5); MEAN CORPUSCULAR VOLUME 90.6 fl (80.0-96.0); PLATELET COUNT, AUTOMATED 139 10^3/uL (150-450); RED BLOOD COUNT 2.98 10^6/uL (4.00-5.40); WHITE BLOOD COUNT 17.8 10^3/uL (4.0-10.0)
[2023-03-28 06:40] LABS: CALCIUM LEVEL 8.8 MG/DL (8.3-10.6); CREATININE FOR GFR 1.43 MG/DL (0.55-1.30); GLOMERULAR FILTRATION RATE 36.9 (>32); POTASSIUM SERUM 3.7 MMOL/L (3.5-5.1)
[2023-03-28 07:08] LABS: LYMPHOCYTES 4 % (16-44); METAMYELOCYTES 2 % (0-0); MONOCYTES 7 % (0-5); NEUTROPHILS 86 % (28-66); PLATELET ESTIMATE DECREASED (NORMAL)
[2023-03-28] MEDS ORDERED: D5W 1,000 ML IV SCH (07:15)
[2023-03-28] MEDS: ENOXAPARIN 30MG/0.3ML SYRINGE (J1650 PER 10MG) SC SCH (08:10)
[2023-03-28] MEDS: OMEPRAZOLE 20MG CAP PO SCH (08:11)
[2023-03-28] MEDS: SERTRALINE HCL 50 MG TAB PO SCH (08:11)
[2023-03-28] MEDS: ursodioL 300MG CAP PO SCH ×2 (08:11→20:56)
[2023-03-28] MEDS: FOLIC ACID 1MG TAB PO SCH (08:11)
[2023-03-28] MEDS: dexAMETHasone 2 MG TAB PO SCH (08:11)
[2023-03-28] MEDS: DIGOXIN 0.125 MG TAB PO SCH (08:11)
[2023-03-28] MEDS: METOPROLOL TART 12.5 MG PER 1/2 TAB PO SCH ×2 (08:11→20:56)
[2023-03-28] MEDS: SODIUM CHLORIDE 0.9% INJ 10 ML SYR IV SCH (08:13)
[2023-03-28] MEDS ORDERED: LR 1,000 ML IV ONE (13:00)
[2023-03-28] MEDS: LR 1,000 ML IV SCH ×2 (17:02→17:45)
[2023-03-28] MEDS: D5W 1,000 ML IV SCH (18:26)
[2023-03-28] MEDS: ATORVASTATIN 20 MG TAB PO SCH (20:56)
[2023-03-28] MEDS: MIRTAZAPINE 7.5MG PER 1/2 TABLET PO SCH (20:56)
[2023-03-29] VITALS (31 sets, daily range): BP systolic 128–172; BP diastolic 66–80; TEMP 97.5–97.8; O2SAT 88–96
[2023-03-29] MEDS: IPRATROPIUM 0.5MG/ALBUTEROL 2.5MG INH SOL UD 3ML (DUONEB) NEB SCH ×4 (01:11→19:42)
[2023-03-29] MEDS: PIPERACILLIN/TAZOBACTAM SOD 2.25 GM in D5W MINI-BAG PLUS 50 ML IV SCH (02:52)
[2023-03-29 05:45] LABS: HEMATOCRIT 27.6 % (36.0-47.0); HEMOGLOBIN 8.6 g/dl (12.0-15.5); MEAN CORPUSCULAR HEMOGLOBIN 28.6 pg (27.0-33.0); MEAN CORPUSCULAR HGB CONC 31.2 g/dl (32.0-36.5); MEAN CORPUSCULAR VOLUME 91.7 fl (80.0-96.0); PLATELET COUNT, AUTOMATED 125 10^3/uL (150-450); RED BLOOD COUNT 3.01 10^6/uL (4.00-5.40)
[2023-03-29] MEDS: D5W 1,000 ML IV SCH (05:56)
[2023-03-29] MEDS: LEVOTHYROXINE 100MCG TABLET (0.1MG) PO SCH (05:56)
[2023-03-29 06:09] LABS: CALCIUM LEVEL 8.7 MG/DL (8.3-10.6); CREATININE FOR GFR 1.16 MG/DL (0.55-1.30); GLOMERULAR FILTRATION RATE 46.9 (>32); POTASSIUM SERUM 3.6 MMOL/L (3.5-5.1)
[2023-03-29 06:36] LABS: ATYPICAL LYMPH 2 % (0-5); LYMPHOCYTES 2 % (16-44); METAMYELOCYTES 1 % (0-0); MONOCYTES 10 % (0-5); NEUTROPHILS 84 % (28-66)
[2023-03-29 06:37] LABS: OVALOCYTES 1+; PLATELET ESTIMATE DECREASED (NORMAL); SCHISTOCYTES 1+
[2023-03-29 08:59] LABS: MAGNESIUM LEVEL 1.4 MG/DL (1.8-2.4)
[2023-03-29] MEDS: FOLIC ACID 1MG TAB PO SCH (09:07)
[2023-03-29] MEDS: OMEPRAZOLE 20MG CAP PO SCH (09:07)
[2023-03-29] MEDS: DIGOXIN 0.125 MG TAB PO SCH (09:07)
[2023-03-29] MEDS: ursodioL 300MG CAP PO SCH ×2 (09:07→21:51)
[2023-03-29] MEDS: LACTOBACILLUS ACIDOPHILUS CAP (BACID) PO SCH ×3 (09:07→18:00)
[2023-03-29] MEDS: SERTRALINE HCL 50 MG TAB PO SCH (09:07)
[2023-03-29] MEDS: dexAMETHasone 2 MG TAB PO SCH (09:07)
[2023-03-29] MEDS: cefTRIAXone SOD 1 GM in D5W MINI-BAG PLUS 50 ML IV SCH (09:08)
[2023-03-29] MEDS: SODIUM CHLORIDE 0.9% INJ 10 ML SYR IV SCH (09:08)
[2023-03-29] MEDS: ENOXAPARIN 30MG/0.3ML SYRINGE (J1650 PER 10MG) SC SCH (09:08)
[2023-03-29] MEDS: METOPROLOL TART 12.5 MG PER 1/2 TAB PO SCH ×2 (09:09→21:51)
[2023-03-29] MEDS: NYSTATIN 100,000 UNITS/GM TOPICAL PWD 15GM TOP SCH ×2 (09:24→21:52)
[2023-03-29] MEDS: PINK BISMUTH SUSP 524MG/30ML ORAL SYRINGE PO SCH ×5 (09:25→21:51)
[2023-03-29] MEDS: MAG SULF 1GM/100ML (MAG RUN) 1 GM in IV 1 EA IV SCH ×4 (12:16→15:29)
[2023-03-29] MEDS: SODIUM CHLORIDE 0.9% INJ 10 ML SYR IV PRN (17:30)
[2023-03-29] MEDS: ATORVASTATIN 20 MG TAB PO SCH (21:51)
[2023-03-29] MEDS: MIRTAZAPINE 7.5MG PER 1/2 TABLET PO SCH (21:51)
[2023-03-30] VITALS (17 sets, daily range): BP systolic 125–138; BP diastolic 63–74; TEMP 97.2–97.5; O2SAT 79–98
[2023-03-30] MEDS: IPRATROPIUM 0.5MG/ALBUTEROL 2.5MG INH SOL UD 3ML (DUONEB) NEB SCH ×4 (01:15→18:11)
[2023-03-30] MEDS: LEVOTHYROXINE 100MCG TABLET (0.1MG) PO SCH (06:18)
[2023-03-30 07:07] LABS: HEMATOCRIT 27.4 % (36.0-47.0); HEMOGLOBIN 8.6 g/dl (12.0-15.5); MEAN CORPUSCULAR HEMOGLOBIN 28.3 pg (27.0-33.0); MEAN CORPUSCULAR HGB CONC 31.4 g/dl (32.0-36.5); MEAN CORPUSCULAR VOLUME 90.1 fl (80.0-96.0); PLATELET COUNT, AUTOMATED 100 10^3/uL (150-450); RED BLOOD COUNT 3.04 10^6/uL (4.00-5.40); WHITE BLOOD COUNT 11.6 10^3/uL (4.0-10.0)
[2023-03-30 07:32] LABS: ATYPICAL LYMPH 9 % (0-5); BASOPHILS 29 % (0-1); EOSINOPHILS 3 % (0-3); LYMPHOCYTES 2 % (16-44); MONOCYTES 6 % (0-5); NEUTROPHILS 49 % (28-66); PLATELET ESTIMATE DECREASED (NORMAL)
[2023-03-30 07:33] LABS: CALCIUM LEVEL 8.4 MG/DL (8.3-10.6); CREATININE FOR GFR 1.03 MG/DL (0.55-1.30); GLOMERULAR FILTRATION RATE 53.8 (>32); OVALOCYTES 1+; POTASSIUM SERUM 3.7 MMOL/L (3.5-5.1)
[2023-03-30 07:34] LABS: TOXIC VACUOLATION 1+
[2023-03-30 08:01] LABS: CLOSTRIDIUM DIFFICILE PCR NEGATIVE (NEGATIVE)
[2023-03-30] MEDS ORDERED: guaiFENesin ER TABLET 600 MG TAB PO SCH ×2 (09:00→12:00)
[2023-03-30] MEDS: NYSTATIN 100,000 UNITS/GM TOPICAL PWD 15GM TOP SCH ×2 (09:00→22:59)
[2023-03-30] MEDS: PINK BISMUTH SUSP 524MG/30ML ORAL SYRINGE PO SCH ×5 (09:02→22:46)
[2023-03-30] MEDS: ENOXAPARIN 30MG/0.3ML SYRINGE (J1650 PER 10MG) SC SCH (09:02)
[2023-03-30] MEDS: METOPROLOL TART 12.5 MG PER 1/2 TAB PO SCH ×2 (09:03→22:45)
[2023-03-30] MEDS: dexAMETHasone 2 MG TAB PO SCH (09:03)
[2023-03-30] MEDS: ursodioL 300MG CAP PO SCH ×2 (09:03→22:46)
[2023-03-30] MEDS: LACTOBACILLUS ACIDOPHILUS CAP (BACID) PO SCH ×3 (09:03→18:34)
[2023-03-30] MEDS: DIGOXIN 0.125 MG TAB PO SCH (09:04)
[2023-03-30] MEDS: cefTRIAXone SOD 1 GM in D5W MINI-BAG PLUS 50 ML IV SCH (09:04)
[2023-03-30] MEDS: FOLIC ACID 1MG TAB PO SCH (09:04)
[2023-03-30] MEDS: OMEPRAZOLE 20MG CAP PO SCH (09:05)
[2023-03-30] MEDS: SERTRALINE HCL 50 MG TAB PO SCH (09:05)
[2023-03-30] MEDS: SODIUM CHLORIDE 0.9% INJ 10 ML SYR IV SCH (09:15)
[2023-03-30] MEDS: SODIUM CHLORIDE 0.9% INJ 10 ML SYR IV PRN (09:50)
[2023-03-30] MEDS: guaiFENesin ER TABLET 600 MG TAB PO SCH ×2 (12:30→22:46)
[2023-03-30] MEDS ORDERED: NEOSPORIN OINT 0.9 GM PKT TOP ONE (13:35)
[2023-03-30] MEDS: BENZONATATE 100MG CAPSULE PO SCH ×2 (14:18→22:45)
[2023-03-30] MEDS: ATORVASTATIN 20 MG TAB PO SCH (22:46)
[2023-03-30] MEDS: MIRTAZAPINE 7.5MG PER 1/2 TABLET PO SCH (22:46)
[2023-03-30] MEDS: AUGMENTIN 875 MG TAB PO SCH (22:46)
[2023-03-31] MEDS: IPRATROPIUM 0.5MG/ALBUTEROL 2.5MG INH SOL UD 3ML (DUONEB) NEB SCH ×4 (01:09→19:06)
[2023-03-31 01:39] VITALS: BP 149/70; TEMP 98.1; O2SAT 94
[2023-03-31] MEDS ORDERED: DIAPER RELIEF PASTE (DESITIN) 60GM TOP PRN (03:20)
[2023-03-31 05:46] VITALS: BP 149/70; TEMP 98.6; O2SAT 92
[2023-03-31] MEDS: LEVOTHYROXINE 100MCG TABLET (0.1MG) PO SCH (05:51)
[2023-03-31] MEDS: BENZONATATE 100MG CAPSULE PO SCH ×3 (05:51→21:25)
[2023-03-31] MEDS: LACTOBACILLUS ACIDOPHILUS CAP (BACID) PO SCH ×3 (08:45→17:01)
[2023-03-31] MEDS: OMEPRAZOLE 20MG CAP PO SCH (08:45)
[2023-03-31] MEDS: dexAMETHasone 2 MG TAB PO SCH (08:45)
[2023-03-31] MEDS: AUGMENTIN 875 MG TAB PO SCH ×2 (08:45→21:25)
[2023-03-31] MEDS: ursodioL 300MG CAP PO SCH ×2 (08:46→21:25)
[2023-03-31] MEDS: FOLIC ACID 1MG TAB PO SCH (08:46)
[2023-03-31] MEDS: ENOXAPARIN 30MG/0.3ML SYRINGE (J1650 PER 10MG) SC SCH (08:46)
[2023-03-31] MEDS: guaiFENesin ER TABLET 600 MG TAB PO SCH ×2 (08:46→21:31)
[2023-03-31] MEDS: SERTRALINE HCL 50 MG TAB PO SCH (08:46)
[2023-03-31] MEDS: DIGOXIN 0.125 MG TAB PO SCH (08:47)
[2023-03-31] MEDS: FUROSEMIDE 20 MG TAB PO SCH (08:47)
[2023-03-31] MEDS: SPIRONOLACTONE 25 MG TAB PO SCH (08:47)
[2023-03-31] MEDS: NYSTATIN 100,000 UNITS/GM TOPICAL PWD 15GM TOP SCH ×2 (08:47→21:26)
[2023-03-31] MEDS: METOPROLOL TART 12.5 MG PER 1/2 TAB PO SCH ×2 (08:48→21:30)
[2023-03-31] MEDS: LOPERAMIDE 2 MG CAPLET PO PRN (18:13)
[2023-03-31] MEDS ORDERED: TRIPLE PASTE 2OZ OINTMENT TOP PRN (18:25)
[2023-03-31 19:07] VITALS: O2SAT 96
[2023-03-31] MEDS ORDERED: DIAPER RELIEF PASTE (DESITIN) 60GM TOP SCH (21:00)
[2023-03-31] MEDS: MIRTAZAPINE 7.5MG PER 1/2 TABLET PO SCH (21:25)
[2023-03-31] MEDS: ATORVASTATIN 20 MG TAB PO SCH (21:26)
[2023-04-01] MEDS: IPRATROPIUM 0.5MG/ALBUTEROL 2.5MG INH SOL UD 3ML (DUONEB) NEB SCH ×4 (01:34→21:04)
[2023-04-01] MEDS: LEVOTHYROXINE 100MCG TABLET (0.1MG) PO SCH (06:01)
[2023-04-01] MEDS: BENZONATATE 100MG CAPSULE PO SCH (06:01)
[2023-04-01] MEDS: ENOXAPARIN 30MG/0.3ML SYRINGE (J1650 PER 10MG) SC SCH (08:53)
[2023-04-01] MEDS: ursodioL 300MG CAP PO SCH ×2 (08:54→21:19)
[2023-04-01] MEDS: guaiFENesin ER TABLET 600 MG TAB PO SCH ×2 (08:54→20:31)
[2023-04-01] MEDS: AUGMENTIN 875 MG TAB PO SCH ×2 (08:54→20:31)
[2023-04-01] MEDS: FOLIC ACID 1MG TAB PO SCH (08:54)
[2023-04-01] MEDS: OMEPRAZOLE 20MG CAP PO SCH (08:54)
[2023-04-01] MEDS: LACTOBACILLUS ACIDOPHILUS CAP (BACID) PO SCH ×3 (08:54→17:00)
[2023-04-01] MEDS: SERTRALINE HCL 50 MG TAB PO SCH (08:54)
[2023-04-01] MEDS: dexAMETHasone 2 MG TAB PO SCH (08:55)
[2023-04-01] MEDS: FUROSEMIDE 20 MG TAB PO SCH (09:00)
[2023-04-01] MEDS: SPIRONOLACTONE 25 MG TAB PO SCH (09:00)
[2023-04-01] MEDS: METOPROLOL TART 12.5 MG PER 1/2 TAB PO SCH ×2 (09:00→20:32)
[2023-04-01] MEDS: DIGOXIN 0.125 MG TAB PO SCH (09:02)
[2023-04-01 09:05] VITALS: BP 100/58
[2023-04-01] MEDS: NYSTATIN 100,000 UNITS/GM TOPICAL PWD 15GM TOP SCH ×2 (10:00→20:33)
[2023-04-01 10:09] VITALS: BP 110/60
[2023-04-01] MEDS ORDERED: E-Z-PAQUE 96% w/w SUSP 176GM BTL As Ordered ONE (11:21)
[2023-04-01] MEDS ORDERED: VARIBAR NECTAR 40% w/v 240ML SUSP BTL As Ordered ONE (11:21)
[2023-04-01] MEDS ORDERED: VARIBAR PUDDING 40% w/v 230ML TUBE As Ordered ONE (11:21)
[2023-04-01] MEDS ORDERED: BARIUM SULFATE 700 MG TABLET (E-Z-DISK) As Ordered ONE (11:22)
[2023-04-01] MEDS ORDERED: BENZONATATE 100MG CAPSULE PO PRN (13:20)
[2023-04-01] MEDS: ATORVASTATIN 20 MG TAB PO SCH (20:31)
[2023-04-01 21:00] VITALS: BP 110/58; TEMP 97.9; O2SAT 93
[2023-04-01] MEDS: MIRTAZAPINE 7.5MG PER 1/2 TABLET PO SCH (21:19)
[2023-04-02] MEDS: IPRATROPIUM 0.5MG/ALBUTEROL 2.5MG INH SOL UD 3ML (DUONEB) NEB SCH ×4 (01:10→19:28)
[2023-04-02 05:18] VITALS: BP 138/68; TEMP 97.3; O2SAT 97
[2023-04-02] MEDS: LEVOTHYROXINE 100MCG TABLET (0.1MG) PO SCH (06:23)
[2023-04-02 07:41] VITALS: O2SAT 96
[2023-04-02] MEDS: NYSTATIN 100,000 UNITS/GM TOPICAL PWD 15GM TOP SCH ×2 (08:12→20:44)
[2023-04-02] MEDS: LACTOBACILLUS ACIDOPHILUS CAP (BACID) PO SCH ×3 (08:13→18:14)
[2023-04-02] MEDS: ENOXAPARIN 30MG/0.3ML SYRINGE (J1650 PER 10MG) SC SCH (08:13)
[2023-04-02] MEDS: dexAMETHasone 2 MG TAB PO SCH (08:13)
[2023-04-02] MEDS: DIGOXIN 0.125 MG TAB PO SCH (08:13)
[2023-04-02] MEDS: FUROSEMIDE 20 MG TAB PO SCH (08:13)
[2023-04-02] MEDS: FOLIC ACID 1MG TAB PO SCH (08:13)
[2023-04-02] MEDS: ursodioL 300MG CAP PO SCH ×2 (08:13→20:40)
[2023-04-02] MEDS: SERTRALINE HCL 50 MG TAB PO SCH (08:13)
[2023-04-02] MEDS: OMEPRAZOLE 20MG CAP PO SCH (08:14)
[2023-04-02] MEDS: guaiFENesin ER TABLET 600 MG TAB PO SCH ×2 (08:14→20:40)
[2023-04-02] MEDS: SPIRONOLACTONE 25 MG TAB PO SCH (08:14)
[2023-04-02] MEDS: AUGMENTIN 875 MG TAB PO SCH ×2 (08:14→20:40)
[2023-04-02] MEDS: METOPROLOL TART 12.5 MG PER 1/2 TAB PO SCH ×2 (08:15→20:40)
[2023-04-02 19:24] VITALS: O2SAT 96
[2023-04-02] MEDS: ATORVASTATIN 20 MG TAB PO SCH (20:40)
[2023-04-02] MEDS: MIRTAZAPINE 7.5MG PER 1/2 TABLET PO SCH (20:40)
[2023-04-03] MEDS: IPRATROPIUM 0.5MG/ALBUTEROL 2.5MG INH SOL UD 3ML (DUONEB) NEB SCH ×4 (00:53→18:53)
[2023-04-03 00:54] VITALS: O2SAT 96
[2023-04-03 05:32] VITALS: BP 132/68; TEMP 98.1; O2SAT 95
[2023-04-03] MEDS: LEVOTHYROXINE 100MCG TABLET (0.1MG) PO SCH (05:47)
[2023-04-03] MEDS: ENOXAPARIN 30MG/0.3ML SYRINGE (J1650 PER 10MG) SC SCH (09:02)
[2023-04-03] MEDS: ursodioL 300MG CAP PO SCH ×2 (09:03→20:48)
[2023-04-03] MEDS: FOLIC ACID 1MG TAB PO SCH (09:03)
[2023-04-03] MEDS: SERTRALINE HCL 50 MG TAB PO SCH (09:03)
[2023-04-03] MEDS: OMEPRAZOLE 20MG CAP PO SCH (09:03)
[2023-04-03] MEDS: NYSTATIN 100,000 UNITS/GM TOPICAL PWD 15GM TOP SCH ×2 (09:03→20:49)
[2023-04-03] MEDS: LACTOBACILLUS ACIDOPHILUS CAP (BACID) PO SCH ×3 (09:03→17:31)
[2023-04-03] MEDS: AUGMENTIN 875 MG TAB PO SCH ×2 (09:03→20:48)
[2023-04-03] MEDS: SPIRONOLACTONE 25 MG TAB PO SCH (09:05)
[2023-04-03] MEDS: DIGOXIN 0.125 MG TAB PO SCH (09:05)
[2023-04-03] MEDS: FUROSEMIDE 20 MG TAB PO SCH (09:05)
[2023-04-03] MEDS: METOPROLOL TART 12.5 MG PER 1/2 TAB PO SCH ×2 (09:06→20:57)
[2023-04-03] MEDS: dexAMETHasone 2 MG TAB PO SCH (09:56)
[2023-04-03] MEDS: LOPERAMIDE 2 MG CAPLET PO PRN (17:31)
[2023-04-03 20:47] VITALS: BP 109/57
[2023-04-03] MEDS: MIRTAZAPINE 7.5MG PER 1/2 TABLET PO SCH (20:48)
[2023-04-03] MEDS: ATORVASTATIN 20 MG TAB PO SCH (20:48)
[2023-04-04] MEDS: IPRATROPIUM 0.5MG/ALBUTEROL 2.5MG INH SOL UD 3ML (DUONEB) NEB SCH ×4 (01:14→19:12)
[2023-04-04] MEDS: LEVOTHYROXINE 100MCG TABLET (0.1MG) PO SCH (05:52)
[2023-04-04 06:00] VITALS: BP 109/60; TEMP 98.1; O2SAT 98
[2023-04-04] MEDS: LACTOBACILLUS ACIDOPHILUS CAP (BACID) PO SCH ×3 (08:34→17:43)
[2023-04-04] MEDS: OMEPRAZOLE 20MG CAP PO SCH (08:37)
[2023-04-04] MEDS: dexAMETHasone 2 MG TAB PO SCH (08:37)
[2023-04-04] MEDS: SERTRALINE HCL 50 MG TAB PO SCH (08:37)
[2023-04-04] MEDS: FOLIC ACID 1MG TAB PO SCH (08:37)
[2023-04-04] MEDS: AUGMENTIN 875 MG TAB PO SCH (08:37)
[2023-04-04] MEDS: ursodioL 300MG CAP PO SCH ×2 (08:38→20:18)
[2023-04-04] MEDS: SPIRONOLACTONE 25 MG TAB PO SCH (08:38)
[2023-04-04] MEDS: DIGOXIN 0.125 MG TAB PO SCH (08:38)
[2023-04-04] MEDS: FUROSEMIDE 20 MG TAB PO SCH (08:38)
[2023-04-04] MEDS: METOPROLOL TART 12.5 MG PER 1/2 TAB PO SCH ×2 (08:39→20:21)
[2023-04-04] MEDS: ENOXAPARIN 30MG/0.3ML SYRINGE (J1650 PER 10MG) SC SCH (08:39)
[2023-04-04] MEDS: NYSTATIN 100,000 UNITS/GM TOPICAL PWD 15GM TOP SCH ×2 (08:40→20:21)
[2023-04-04] MEDS: MIRTAZAPINE 7.5MG PER 1/2 TABLET PO SCH (20:18)
[2023-04-04] MEDS: ATORVASTATIN 20 MG TAB PO SCH (20:18)
[2023-04-05] MEDS: IPRATROPIUM 0.5MG/ALBUTEROL 2.5MG INH SOL UD 3ML (DUONEB) NEB SCH ×4 (01:37→19:10)
[2023-04-05] MEDS: LEVOTHYROXINE 100MCG TABLET (0.1MG) PO SCH (05:58)
[2023-04-05 06:00] VITALS: BP 105/58; TEMP 97.7; O2SAT 91
[2023-04-05] MEDS: ENOXAPARIN 30MG/0.3ML SYRINGE (J1650 PER 10MG) SC SCH (08:48)
[2023-04-05] MEDS: OMEPRAZOLE 20MG CAP PO SCH (08:49)
[2023-04-05] MEDS: FOLIC ACID 1MG TAB PO SCH (08:49)
[2023-04-05] MEDS: SERTRALINE HCL 50 MG TAB PO SCH (08:49)
[2023-04-05] MEDS: MIRTAZAPINE 7.5MG PER 1/2 TABLET PO SCH ×2 (08:49→20:19)
[2023-04-05] MEDS: NYSTATIN 100,000 UNITS/GM TOPICAL PWD 15GM TOP SCH ×2 (08:49→20:21)
[2023-04-05] MEDS: LACTOBACILLUS ACIDOPHILUS CAP (BACID) PO SCH ×3 (08:49→17:46)
[2023-04-05] MEDS: DIGOXIN 0.125 MG TAB PO SCH (08:50)
[2023-04-05] MEDS: SPIRONOLACTONE 25 MG TAB PO SCH (08:50)
[2023-04-05] MEDS: ursodioL 300MG CAP PO SCH ×2 (08:55→20:19)
[2023-04-05] MEDS: dexAMETHasone 2 MG TAB PO SCH (08:55)
[2023-04-05] MEDS: METOPROLOL TART 12.5 MG PER 1/2 TAB PO SCH ×2 (09:00→20:20)
[2023-04-05] MEDS: FUROSEMIDE 20 MG TAB PO SCH (09:00)
[2023-04-05] MEDS: ATORVASTATIN 20 MG TAB PO SCH (20:19)
[2023-04-06] MEDS: IPRATROPIUM 0.5MG/ALBUTEROL 2.5MG INH SOL UD 3ML (DUONEB) NEB SCH ×2 (01:32→07:18)
[2023-04-06] MEDS: LEVOTHYROXINE 100MCG TABLET (0.1MG) PO SCH (05:40)
[2023-04-06 06:00] VITALS: BP 105/61; TEMP 97.7; O2SAT 99
[2023-04-06] MEDS: LACTOBACILLUS ACIDOPHILUS CAP (BACID) PO SCH ×2 (08:00→12:44)
[2023-04-06] MEDS: ursodioL 300MG CAP PO SCH (10:26)
[2023-04-06] MEDS: ENOXAPARIN 30MG/0.3ML SYRINGE (J1650 PER 10MG) SC SCH (10:26)
[2023-04-06] MEDS: SERTRALINE HCL 50 MG TAB PO SCH (10:26)
[2023-04-06] MEDS: OMEPRAZOLE 20MG CAP PO SCH (10:26)
[2023-04-06] MEDS: FOLIC ACID 1MG TAB PO SCH (10:26)
[2023-04-06] MEDS: dexAMETHasone 2 MG TAB PO SCH (10:26)
[2023-04-06] MEDS: DIGOXIN 0.125 MG TAB PO SCH (10:29)
[2023-04-06 10:31] VITALS: BP 106/60
[2023-04-06] MEDS: NYSTATIN 100,000 UNITS/GM TOPICAL PWD 15GM TOP SCH (10:31)
[2023-04-06 10:39] VITALS: BP 106/60
[2023-04-06] MEDS: METOPROLOL TART 12.5 MG PER 1/2 TAB PO SCH (10:39)
[2023-04-06] MEDS: FUROSEMIDE 20 MG TAB PO SCH (10:39)
[2023-04-06] MEDS: SPIRONOLACTONE 25 MG TAB PO SCH (10:39)
[2023-04-06] MEDS ORDERED: OMEP-173 PO (12:13)
[2023-04-06] MEDS ORDERED: RISATAB3 PO (12:15)
== END 2023-04-06 13:54 | DRG 871 ==
LOC: M ED 08:22 → M ED INP 11:04 → ENRESERV 16:12 → M ICU 18:31 → M PCU 03-27 00:51 → M MSPAV 03-31 01:34
PROVIDERS: ADMIT Internal Medicine Pulmonary Disease; ATTEND Family Medicine
PROC: 30233N1 Transfusion of Nonautologous Red Blood Cells into Peripheral Vein, Percutaneous Approach (ICD-10-PCS; 2023-03-23)
PROC: B246ZZZ Ultrasonography of Right and Left Heart (ICD-10-PCS; principal; 2023-03-24)
DX: A41.9 Sepsis, unspecified organism (principal); J96.01 Acute respiratory failure with hypoxia; J15.69 Pneumonia due to other Gram-negative bacteria; J12.82 Pneumonia due to coronavirus disease 2019; K83.1 Obstruction of bile duct; I50.32 Chronic diastolic (congestive) heart failure; N17.9 Acute kidney failure, unspecified; E87.1 Hypo-osmolality and hyponatremia; E87.0 Hyperosmolality and hypernatremia; K92.2 Gastrointestinal hemorrhage, unspecified; E78.5 Hyperlipidemia, unspecified; E87.6 Hypokalemia; Z66 Do not resuscitate; K29.70 Gastritis, unspecified, without bleeding; I45.6 Pre-excitation syndrome; R13.10 Dysphagia, unspecified; E03.9 Hypothyroidism, unspecified; E55.9 Vitamin D deficiency, unspecified; D50.0 Iron deficiency anemia secondary to blood loss (chronic); I48.91 Unspecified atrial fibrillation; I36.0 Nonrheumatic tricuspid (valve) stenosis; I11.0 Hypertensive heart disease with heart failure; I27.20 Pulmonary hypertension, unspecified; F32.A Depression, unspecified; K44.9 Diaphragmatic hernia without obstruction or gangrene; Z95.0 Presence of cardiac pacemaker; Z95.3 Presence of xenogenic heart valve; Z79.890 Hormone replacement therapy; Z79.899 Other long term (current) drug therapy; Z88.5 Allergy status to narcotic agent; Z86.16 Personal history of COVID-19

== ENCOUNTER → 2023-04-08 | Outpatient (REF) ==
[~2023-04-08] MED LIST changes: +METO25TA4 PO; +OMEP-173 PO; +RISATAB3 PO
[2023-04-08 10:21] LABS: HEMATOCRIT 30.7 % (36.0-47.0); HEMOGLOBIN 9.6 g/dl (12.0-15.5); MEAN CORPUSCULAR HEMOGLOBIN 28.7 pg (27.0-33.0); MEAN CORPUSCULAR HGB CONC 31.3 g/dl (32.0-36.5); MEAN CORPUSCULAR VOLUME 91.9 fl (80.0-96.0); PLATELET COUNT, AUTOMATED 104 10^3/uL (150-450); RED BLOOD COUNT 3.34 10^6/uL (4.00-5.40); WHITE BLOOD COUNT 8.8 10^3/uL (4.0-10.0)
[2023-04-08 10:45] LABS: CALCIUM LEVEL 8.6 MG/DL (8.3-10.6); CREATININE FOR GFR 1.42 MG/DL (0.55-1.30); GLOMERULAR FILTRATION RATE 37.2 (>32); POTASSIUM SERUM 4.7 MMOL/L (3.5-5.1)
== END ==
PROVIDERS: ATTEND Physician Assistant
DX: J44.9 Chronic obstructive pulmonary disease, unspecified (principal)

== ENCOUNTER → 2023-04-15 | Outpatient (REF) ==
[~2023-04-15] MED LIST changes: +IRBE150T27 PO; -IRBE150T7 PO
[2023-04-15 11:25] LABS: HEMATOCRIT 28.8 % (36.0-47.0); MEAN CORPUSCULAR HEMOGLOBIN 29.7 pg (27.0-33.0); MEAN CORPUSCULAR HGB CONC 31.3 g/dl (32.0-36.5); RED BLOOD COUNT 3.03 10^6/uL (4.00-5.40); WHITE BLOOD COUNT 4.9 10^3/uL (4.0-10.0)
[2023-04-15 11:40] LABS: CALCIUM LEVEL 8.7 MG/DL (8.3-10.6); CREATININE FOR GFR 1.23 MG/DL (0.55-1.30); GLOMERULAR FILTRATION RATE 43.9 (>32); POTASSIUM SERUM 4.7 MMOL/L (3.5-5.1)
[2023-04-15 11:46] LABS: PLATELET COUNT, AUTOMATED 80 10^3/uL (150-450)
== END ==
PROVIDERS: ATTEND Physician Assistant
DX: J44.9 Chronic obstructive pulmonary disease, unspecified (principal)

== ENCOUNTER → 2023-04-17 | Outpatient (REF) ==
[2023-04-17 18:14] LABS: HEMOGLOBIN 9.4 g/dl (12.0-15.5); MEAN CORPUSCULAR HGB CONC 31.3 g/dl (32.0-36.5); MEAN CORPUSCULAR VOLUME 95.8 fl (80.0-96.0); RED BLOOD COUNT 3.13 10^6/uL (4.00-5.40); WHITE BLOOD COUNT 4.2 10^3/uL (4.0-10.0)
[2023-04-17 18:21] LABS: PLATELET COUNT, AUTOMATED 99 10^3/uL (150-450)
[2023-04-17 18:26] LABS: IRON (FE) 41 UG/DL (50-170); PERCENT SATURATION 14.5 % (13.2-45.0); TOTAL IRON BINDING CAPACITY 283 UG/DL (250-425)
[2023-04-17 18:29] LABS: FOLATE > 24.00 NG/ML (>5.4); VITAMIN B12 LEVEL 740 PG/ML (211-911)
== END ==
PROVIDERS: ATTEND Physician Assistant
DX: D64.9 Anemia, unspecified (principal)

== ENCOUNTER → 2023-04-19 | Outpatient (REF) | payer MEDICARE | PROVIDERS: ATTEND Internal Medicine | DX: D64.9 Anemia, unspecified (principal) ==

== ENCOUNTER → 2023-04-20 | Outpatient (REF) | PROVIDERS: ATTEND Physician Assistant | DX: I48.91 Unspecified atrial fibrillation (principal) ==

== ENCOUNTER → 2023-04-22 | Outpatient (REF) ==
[2023-04-22 15:54] LABS: HEMATOCRIT 27.1 % (36.0-47.0); HEMOGLOBIN 8.5 g/dl (12.0-15.5); MEAN CORPUSCULAR HEMOGLOBIN 29.8 pg (27.0-33.0); MEAN CORPUSCULAR HGB CONC 31.4 g/dl (32.0-36.5); MEAN CORPUSCULAR VOLUME 95.1 fl (80.0-96.0); RED BLOOD COUNT 2.85 10^6/uL (4.00-5.40); WHITE BLOOD COUNT 4.7 10^3/uL (4.0-10.0)
[2023-04-22 16:03] LABS: PLATELET COUNT, AUTOMATED 93 10^3/uL (150-450)
[2023-04-22 16:20] LABS: CALCIUM LEVEL 8.5 MG/DL (8.3-10.6); CREATININE FOR GFR 1.34 MG/DL (0.55-1.30); GLOMERULAR FILTRATION RATE 39.7 (>32); POTASSIUM SERUM 4.6 MMOL/L (3.5-5.1)
== END ==
PROVIDERS: ATTEND Physician Assistant
DX: R11.0 Nausea (principal)

== ENCOUNTER → 2023-04-23 | Outpatient (REF) | PROVIDERS: ATTEND Physician Assistant | DX: N39.0 Urinary tract infection, site not specified (principal) ==

== ENCOUNTER → 2023-04-24 | Outpatient (REF) | PROVIDERS: ATTEND Physician Assistant | DX: D64.9 Anemia, unspecified (principal); Z53.8 Procedure and treatment not carried out for other reasons ==

== ENCOUNTER 2023-04-26 00:06 | Emergency (ER) | payer MEDICARE ==
[~2023-04-26] VITALS: Ht 154.9 cm; Wt 45.5 kg
[2023-04-26 05:00] VITALS: BP 116/61; TEMP 98; O2SAT 100
== END 2023-04-26 05:05 | disposition home or self-care (01) ==
LOC: EDBD 00:06 → M ED 00:06
DX: S62.351A Nondisplaced fracture of shaft of second metacarpal bone, left hand, initial encounter for closed fracture (principal); W19.XXXA Unspecified fall, initial encounter; Y92.129 Unspecified place in nursing home as the place of occurrence of the external cause; Y93.9 Activity, unspecified; Y99.9 Unspecified external cause status; F03.90 Unspecified dementia, unspecified severity, without behavioral disturbance, psychotic disturbance, mood disturbance, and anxiety; Z79.899 Other long term (current) drug therapy; Z88.5 Allergy status to narcotic agent

== ENCOUNTER → 2023-05-01 | Outpatient (REF) | payer MEDICARE ==
[2023-05-01 08:22] LABS: HEMOGLOBIN 7.2 g/dl (12.0-15.5); MEAN CORPUSCULAR HGB CONC 31.3 g/dl (32.0-36.5); MEAN CORPUSCULAR VOLUME 95.8 fl (80.0-96.0); PLATELET COUNT, AUTOMATED 104 10^3/uL (150-450); WHITE BLOOD COUNT 5.3 10^3/uL (4.0-10.0)
== END ==
PROVIDERS: ATTEND Physician Assistant
DX: D64.9 Anemia, unspecified (principal)

== ENCOUNTER → 2023-05-02 | Outpatient (REF) | PROVIDERS: ATTEND Internal Medicine | DX: K92.2 Gastrointestinal hemorrhage, unspecified (principal); Z53.8 Procedure and treatment not carried out for other reasons ==

== ENCOUNTER → 2023-05-03 | Outpatient (REF) | payer MEDICARE ==
[2023-05-03 06:51] LABS: CALCIUM LEVEL 8.4 MG/DL (8.3-10.6); CREATININE FOR GFR 1.35 MG/DL (0.55-1.30); GLOMERULAR FILTRATION RATE 39.4 (>32)
[2023-05-03 06:52] LABS: PERCENT SATURATION 13.4 % (13.2-45.0)
[2023-05-03 06:54] LABS: FERRITIN 56.2 NG/ML (7.3-270.7)
[2023-05-03 06:55] LABS: HEMATOCRIT 23.3 % (36.0-47.0); HEMOGLOBIN 7.4 g/dl (12.0-15.5); MEAN CORPUSCULAR HEMOGLOBIN 30.5 pg (27.0-33.0); MEAN CORPUSCULAR HGB CONC 31.8 g/dl (32.0-36.5); MEAN CORPUSCULAR VOLUME 95.9 fl (80.0-96.0); PLATELET COUNT, AUTOMATED 121 10^3/uL (150-450); RED BLOOD COUNT 2.43 10^6/uL (4.00-5.40)
== END ==
PROVIDERS: ATTEND Internal Medicine
DX: K92.2 Gastrointestinal hemorrhage, unspecified (principal)

== ENCOUNTER → 2023-05-04 | Outpatient (REF) | PROVIDERS: ATTEND Internal Medicine | DX: K92.2 Gastrointestinal hemorrhage, unspecified (principal); Z53.8 Procedure and treatment not carried out for other reasons ==

== ENCOUNTER → 2023-05-06 | Outpatient (REF) | payer MEDICARE | PROVIDERS: ATTEND Physician Assistant | DX: K92.2 Gastrointestinal hemorrhage, unspecified (principal); Z53.8 Procedure and treatment not carried out for other reasons ==

== ENCOUNTER → 2023-05-07 | Outpatient (REF) | payer MEDICARE | PROVIDERS: ATTEND Physician Assistant | DX: D64.9 Anemia, unspecified (principal); Z53.8 Procedure and treatment not carried out for other reasons ==

== ENCOUNTER → 2023-05-08 | Outpatient (REF) | payer MEDICARE ==
[2023-05-08 09:54] LABS: HEMATOCRIT 23.9 % (36.0-47.0); HEMOGLOBIN 7.4 g/dl (12.0-15.5); MEAN CORPUSCULAR HEMOGLOBIN 30.6 pg (27.0-33.0); MEAN CORPUSCULAR VOLUME 98.8 fl (80.0-96.0); PLATELET COUNT, AUTOMATED 115 10^3/uL (150-450); RED BLOOD COUNT 2.42 10^6/uL (4.00-5.40)
[2023-05-08 10:18] LABS: CALCIUM LEVEL 8.7 MG/DL (8.3-10.6); CREATININE FOR GFR 1.27 MG/DL (0.55-1.30); GLOMERULAR FILTRATION RATE 42.3 (>32); POTASSIUM SERUM 4.5 MMOL/L (3.5-5.1)
[2023-05-08 18:32] LABS: INFLUENZA A AMPLIFICATION NEGATIVE (NEGATIVE); INFLUENZA B AMPLIFICATION NEGATIVE (NEGATIVE)
== END ==
PROVIDERS: ATTEND Physician Assistant
DX: D64.9 Anemia, unspecified (principal)

== ENCOUNTER → 2023-05-08 | Outpatient (REF) | payer MEDICARE | PROVIDERS: ATTEND Physician Assistant | DX: R11.0 Nausea (principal); Z53.8 Procedure and treatment not carried out for other reasons ==

== ENCOUNTER → 2023-05-11 | Outpatient (REF) | PROVIDERS: ATTEND Internal Medicine | DX: D64.9 Anemia, unspecified (principal) ==

== ENCOUNTER 2023-05-12 08:01 | Outpatient (CLI) | payer MEDICARE ==
[~2023-05-12] VITALS: Ht 157.5 cm; Wt 52.2 kg
[2023-05-12 08:57] VITALS: BP 123/55; O2SAT 97
[2023-05-12] MEDS: FUROSEMIDE 20 MG TAB PO ONE (09:09)
[2023-05-12] MEDS: ACETAMINOPHEN 325 MG TAB PO ONE (09:09)
[2023-05-12] MEDS: diphenhydrAMINE 25MG CAP PO ONE (09:09)
[2023-05-12 09:15] VITALS: BP 123/53; TEMP 98; O2SAT 97
[2023-05-12 09:40] VITALS: BP 98/54; TEMP 98.1; O2SAT 95
[2023-05-12 10:50] VITALS: BP 120/58; TEMP 98.5; O2SAT 97
[2023-05-12 12:45] VITALS: BP 119/60; O2SAT 95
== END 2023-05-12 12:45 ==
LOC: M INFU 08:01
PROVIDERS: ATTEND Physician Assistant
DX: D64.9 Anemia, unspecified (principal); Z88.5 Allergy status to narcotic agent
CPT/HCPCS: 36430; P9016

== ENCOUNTER → 2023-05-13 | Outpatient (REF) | payer MEDICARE ==
[~2023-05-13] MED LIST changes: -DOCU-153 PO; -MIRA1POW3 PO; +MIRA33506 PO; +STOO100C30 PO
[2023-05-13 10:43] LABS: HEMATOCRIT 35.2 % (36.0-47.0); HEMOGLOBIN 11.2 g/dl (12.0-15.5); MEAN CORPUSCULAR HEMOGLOBIN 30.4 pg (27.0-33.0); MEAN CORPUSCULAR HGB CONC 31.8 g/dl (32.0-36.5); MEAN CORPUSCULAR VOLUME 95.7 fl (80.0-96.0); PLATELET COUNT, AUTOMATED 133 10^3/uL (150-450); RED BLOOD COUNT 3.68 10^6/uL (4.00-5.40); WHITE BLOOD COUNT 8.3 10^3/uL (4.0-10.0)
[2023-05-13 11:08] LABS: CALCIUM LEVEL 8.7 MG/DL (8.3-10.6); CREATININE FOR GFR 1.26 MG/DL (0.55-1.30); GLOMERULAR FILTRATION RATE 42.7 (>32); POTASSIUM SERUM 4.2 MMOL/L (3.5-5.1)
== END ==
PROVIDERS: ATTEND Physician Assistant
DX: D64.9 Anemia, unspecified (principal)

== ENCOUNTER → 2023-05-14 | Outpatient (REF) | payer MEDICARE | PROVIDERS: ATTEND Internal Medicine | DX: J44.9 Chronic obstructive pulmonary disease, unspecified (principal) ==

== ENCOUNTER → 2023-05-18 | Outpatient (REF) | payer MEDICARE ==
[2023-05-18 10:51] LABS: HEMATOCRIT 31.5 % (36.0-47.0); HEMOGLOBIN 9.9 g/dl (12.0-15.5); MEAN CORPUSCULAR HEMOGLOBIN 30.7 pg (27.0-33.0); MEAN CORPUSCULAR HGB CONC 31.4 g/dl (32.0-36.5); MEAN CORPUSCULAR VOLUME 97.8 fl (80.0-96.0); PLATELET COUNT, AUTOMATED 105 10^3/uL (150-450); RED BLOOD COUNT 3.22 10^6/uL (4.00-5.40); WHITE BLOOD COUNT 5.2 10^3/uL (4.0-10.0)
[2023-05-18 11:11] LABS: CALCIUM LEVEL 8.9 MG/DL (8.3-10.6); CREATININE FOR GFR 1.26 MG/DL (0.55-1.30); GLOMERULAR FILTRATION RATE 42.7 (>32)
== END ==
PROVIDERS: ATTEND Internal Medicine
DX: J44.9 Chronic obstructive pulmonary disease, unspecified (principal)

== ENCOUNTER → 2023-06-15 | Outpatient (REF) | payer MEDICARE | PROVIDERS: ATTEND Internal Medicine | DX: J44.9 Chronic obstructive pulmonary disease, unspecified (principal); Z53.8 Procedure and treatment not carried out for other reasons ==

== ENCOUNTER → 2023-07-15 | Outpatient (REF) | payer MEDICARE | PROVIDERS: ATTEND Physician Assistant | DX: R05.9 Cough, unspecified (principal) ==

== ENCOUNTER → 2023-08-17 | Outpatient (REF) | payer MEDICARE | PROVIDERS: ATTEND Internal Medicine | DX: I48.91 Unspecified atrial fibrillation (principal) ==

== ENCOUNTER 2023-08-31 14:14 | Inpatient (IN) | payer MEDICARE ==
[~2023-08-31] VITALS: Ht 154.9 cm; Wt 56.0 kg
[2023-08-31] MEDS: NS 500 ML IV ONE (14:30)
[2023-08-31] MEDS: LIDOCAINE 2% 5ML JELLY UROJET TOP ONE (14:35)
[2023-08-31] MEDS ORDERED: ISOVUE-370 76% 100ML VIAL As Ordered ONE (14:39)
[2023-08-31 14:44] LABS: HEMATOCRIT 23.3 % (36.0-47.0); LYMPH # 0.7 10^3/uL (1.5-5.0); LYMPH % 11.5 % (24.0-44.0); MEAN CORPUSCULAR HEMOGLOBIN 28.3 pg (27.0-33.0); MEAN CORPUSCULAR HGB CONC 29.2 g/dl (32.0-36.5); MEAN CORPUSCULAR VOLUME 97.1 fl (80.0-96.0); MONO # 0.7 10^3/uL (0.0-0.8); MONO % 12.1 % (2.0-8.0); NEUTROPHILS # 4.6 10^3/uL (1.5-8.5); NEUTROPHILS % 75.7 % (36.0-66.0); PLATELET COUNT, AUTOMATED 125 10^3/uL (150-450)
[2023-08-31 14:49] LABS: HEMOGLOBIN 6.8 g/dl (12.0-15.5)
[2023-08-31 15:07] LABS: INR 1.09; PARTIAL THROMBOPLASTIN TIME 34.6 SECONDS (24.8-34.2); PROTHROMBIN TIME 13.8 SECONDS (12.5-14.5)
[2023-08-31 15:10] LABS: LIPASE 35 U/L (12-53)
[2023-08-31 15:12] LABS: ALBUMIN 3.5 G/DL (3.2-5.2); ALKALINE PHOSPHATASE 111 U/L (46-116); ALT/SGPT 16 U/L (7.0-40); AST/SGOT 12 U/L (<34); BILIRUBIN,DIRECT < 0.1 MG/DL (<0.4); BILIRUBIN,TOTAL 0.2 MG/DL (0.3-1.2); BLOOD UREA NITROGEN 32 MG/DL (9-23); CALCIUM LEVEL 8.8 MG/DL (8.3-10.6); CARBON DIOXIDE LEVEL 28 MMOL/L (20-31); CHLORIDE LEVEL 105 MMOL/L (98-107); CK-MB VALUE MASS < 1.0 NG/ML (<3.6); CREATININE FOR GFR 1.51 MG/DL (0.55-1.30); GLOMERULAR FILTRATION RATE 34.6 (>32); GLUCOSE, FASTING 123 MG/DL (74-106); MAGNESIUM LEVEL 2.3 MG/DL (1.8-2.4); POTASSIUM SERUM 5.2 MMOL/L (3.5-5.1); SODIUM LEVEL 140 MMOL/L (136-145); TOTAL PROTEIN 6.4 G/DL (5.7-8.2)
[2023-08-31 15:14] LABS: FREE T4 1.05 NG/DL (0.89-1.76); THYROID STIMULATING HORMONE 8.887 uIU/ML (0.55-4.78)
[2023-08-31 15:16] LABS: CPK CREATINE PHOSPHOKINASE 29 U/L (34-145); MB/CK RELATIVE INDEX 3.44 (< OR =4)
[2023-08-31 15:32] LABS: RSV AMPLIFICATION NEGATIVE (NEGATIVE)
[2023-08-31 16:26] LABS: CK-MB VALUE MASS < 1.0 NG/ML (<3.6)
[2023-08-31 16:28] LABS: CPK CREATINE PHOSPHOKINASE 31 U/L (34-145); MB/CK RELATIVE INDEX 3.22 (< OR =4)
[2023-08-31 16:37] VITALS: BP 119/59; TEMP 97.9; O2SAT 95
[2023-08-31 16:53] VITALS: BP 120/57; TEMP 98.4; O2SAT 95
[2023-08-31] MEDS ORDERED: cefTRIAXone SOD 1GM VIAL IM SCH (17:55)
[2023-08-31 18:35] VITALS: BP 135/65; TEMP 97.6; O2SAT 94
[2023-08-31 18:53] VITALS: BP 133/66; TEMP 98; O2SAT 93
[2023-08-31 20:15] VITALS: BP 157/72; TEMP 98.5; O2SAT 96
[2023-08-31 20:17] VITALS: BP 132/77; TEMP 97.7; O2SAT 95
[2023-08-31] MEDS: PANTOPRAZOLE 40MG TAB (PROTONIX) PO SCH (20:45)
[2023-08-31] MEDS: cefTRIAXone SOD 1 GM in D5W MINI-BAG PLUS 50 ML IV SCH (20:45)
[2023-08-31] MEDS: OMEPRAZOLE 20MG CAP PO SCH (21:00)
[2023-08-31] MEDS: METOPROLOL TART 12.5 MG PER 1/2 TAB PO SCH (21:00)
[2023-08-31] MEDS: ursodioL 300MG CAP PO SCH (21:00)
[2023-08-31] MEDS ORDERED: MIRT1TAB PO (21:43)
[2023-08-31] MEDS ORDERED: BISA10SU27 PR (21:43)
[2023-08-31] MEDS ORDERED: MILKSUS3 PO (21:43)
[2023-08-31] MEDS ORDERED: ACET-907 PO (21:43)
[2023-08-31] MEDS ORDERED: FERR1TAB8 PO (21:43)
[2023-08-31] MEDS ORDERED: FLEEENE12 PR (21:43)
[2023-08-31] MEDS ORDERED: SUCR1TAB56 PO (21:43)
[2023-08-31] MEDS ORDERED: OMEP1CAP73 PO (21:43)
[2023-08-31] MEDS ORDERED: HOME MED LIST COMPLETE! XX SCH (21:45)
[2023-08-31] MEDS ORDERED: MOM 30ML SUSPENSION UDC PO PRN (21:50)
[2023-08-31] MEDS ORDERED: BISACODYL 10MG SUPP PR PRN (21:50)
[2023-09-01 04:45] VITALS: BP 122/65; TEMP 98.2; O2SAT 96
[2023-09-01] MEDS: LEVOTHYROXINE 100MCG TABLET (0.1MG) PO SCH (06:00)
[2023-09-01] MEDS: SUCRALFATE 1 GM TAB PO SCH (07:30)
[2023-09-01] MEDS ORDERED: FUROSEMIDE 20 MG TAB PO SCH (09:00)
[2023-09-01 09:02] LABS: MEAN CORPUSCULAR HEMOGLOBIN 27.9 pg (27.0-33.0); MEAN CORPUSCULAR HGB CONC 31.3 g/dl (32.0-36.5); PLATELET COUNT, AUTOMATED 130 10^3/uL (150-450); RED BLOOD COUNT 3.37 10^6/uL (4.00-5.40); WHITE BLOOD COUNT 6.6 10^3/uL (4.0-10.0)
[2023-09-01 09:04] LABS: HEMOGLOBIN 9.4 g/dl (12.0-15.5)
[2023-09-01 09:30] LABS: ALBUMIN 3.7 G/DL (3.2-5.2); BILIRUBIN,TOTAL 0.5 MG/DL (0.3-1.2); CALCIUM LEVEL 9.6 MG/DL (8.3-10.6); CREATININE FOR GFR 1.4 MG/DL (0.55-1.30); GLOMERULAR FILTRATION RATE 37.8 (>32); POTASSIUM SERUM 4.5 MMOL/L (3.5-5.1); TOTAL PROTEIN 6.6 G/DL (5.7-8.2)
[2023-09-01] MEDS: DIGOXIN 0.125 MG TAB PO SCH (09:49)
[2023-09-01] MEDS: FOLIC ACID 1MG TAB PO SCH (09:50)
[2023-09-01] MEDS: SERTRALINE HCL 25 MG TABLET PO SCH (09:50)
[2023-09-01] MEDS: SPIRONOLACTONE 25 MG TAB PO SCH (09:50)
[2023-09-01] MEDS: FERROUS SULFATE 325MG TAB PO SCH (09:50)
[2023-09-01] MEDS: FUROSEMIDE 20MG/2ML VIAL IV SCH (09:51)
[2023-09-01 12:00] VITALS: BP 121/84; TEMP 97.2; O2SAT 97
[2023-09-01] MEDS: PREVNAR-20 VACCINE 0.5ML SYRINGE IM.IMMUN ONE (12:53)
[2023-09-01] MEDS: MIRTAZAPINE 7.5MG PER 1/2 TABLET PO SCH (16:32)
[2023-09-01] MEDS: ATORVASTATIN 20 MG TAB PO SCH (16:32)
[2023-09-01] MEDS: QUEtiapine FUMARATE 25 MG TAB PO PRN (16:32)
[2023-09-01 20:45] VITALS: BP 116/86; TEMP 97.5; O2SAT 95
[2023-09-02 06:02] LABS: BASO % 0.2 % (0.0-1.0); EOS % 0.2 % (0.0-3.0); HEMATOCRIT 28.3 % (36.0-47.0); HEMOGLOBIN 8.8 g/dl (12.0-15.5); LYMPH # 0.3 10^3/uL (1.5-5.0); LYMPH % 5.7 % (24.0-44.0); MEAN CORPUSCULAR HEMOGLOBIN 28.3 pg (27.0-33.0); MEAN CORPUSCULAR HGB CONC 31.1 g/dl (32.0-36.5); MONO # 0.7 10^3/uL (0.0-0.8); MONO % 12.2 % (2.0-8.0); NEUTROPHILS # 4.8 10^3/uL (1.5-8.5); NEUTROPHILS % 81.2 % (36.0-66.0); PLATELET COUNT, AUTOMATED 108 10^3/uL (150-450); RED BLOOD COUNT 3.11 10^6/uL (4.00-5.40)
[2023-09-02 06:29] LABS: CALCIUM LEVEL 8.8 MG/DL (8.3-10.6); CREATININE FOR GFR 1.54 MG/DL (0.55-1.30); GLOMERULAR FILTRATION RATE 33.8 (>32); POTASSIUM SERUM 4.7 MMOL/L (3.5-5.1)
[2023-09-02 12:15] VITALS: BP 111/54; TEMP 97.3; O2SAT 96
[2023-09-02] MEDS: ACETAMINOPHEN TAB 650MG DOSE (2X325MG) PO PRN (12:40)
[2023-09-03 05:44] VITALS: BP 122/79; TEMP 97.3; O2SAT 95
[2023-09-03 05:58] LABS: BASO % 0.2 % (0.0-1.0); EOS % 0.2 % (0.0-3.0); HEMATOCRIT 29.9 % (36.0-47.0); HEMOGLOBIN 9.2 g/dl (12.0-15.5); LYMPH # 0.4 10^3/uL (1.5-5.0); LYMPH % 9.7 % (24.0-44.0); MEAN CORPUSCULAR HGB CONC 30.8 g/dl (32.0-36.5); MEAN CORPUSCULAR VOLUME 90.9 fl (80.0-96.0); MONO # 0.6 10^3/uL (0.0-0.8); NEUTROPHILS # 3.1 10^3/uL (1.5-8.5); NEUTROPHILS % 75.2 % (36.0-66.0); PLATELET COUNT, AUTOMATED 117 10^3/uL (150-450); RED BLOOD COUNT 3.29 10^6/uL (4.00-5.40); WHITE BLOOD COUNT 4.1 10^3/uL (4.0-10.0)
[2023-09-03 06:27] LABS: CALCIUM LEVEL 8.7 MG/DL (8.3-10.6); CREATININE FOR GFR 1.73 MG/DL (0.55-1.30); GLOMERULAR FILTRATION RATE 29.6 (>32); POTASSIUM SERUM 4.5 MMOL/L (3.5-5.1)
[2023-09-03 08:49] VITALS: BP 122/79
[2023-09-03] MEDS ORDERED: CEFD1CAP9 PO (10:21)
== END 2023-09-03 11:36 | DRG 811 ==
LOC: EDSEX 14:14 → EDBD 14:14 → M ED 14:14 → M ED INP 17:52 → M MSPAV 20:16
PROVIDERS: ADMIT Internal Medicine; ATTEND Internal Medicine Nephrology
PROC: 30233N1 Transfusion of Nonautologous Red Blood Cells into Peripheral Vein, Percutaneous Approach (ICD-10-PCS; principal; 2023-08-31)
DX: D62 Acute posthemorrhagic anemia (principal); G93.41 Metabolic encephalopathy; I50.32 Chronic diastolic (congestive) heart failure; N17.9 Acute kidney failure, unspecified; N39.0 Urinary tract infection, site not specified; I13.0 Hypertensive heart and chronic kidney disease with heart failure and stage 1 through stage 4 chronic kidney disease, or unspecified chronic kidney disease; K92.2 Gastrointestinal hemorrhage, unspecified; I48.91 Unspecified atrial fibrillation; I27.20 Pulmonary hypertension, unspecified; Z95.3 Presence of xenogenic heart valve; Z95.0 Presence of cardiac pacemaker; R26.89 Other abnormalities of gait and mobility; R91.8 Other nonspecific abnormal finding of lung field; F32.A Depression, unspecified; Z66 Do not resuscitate; N18.30 Chronic kidney disease, stage 3 unspecified; I36.1 Nonrheumatic tricuspid (valve) insufficiency; E87.5 Hyperkalemia; D69.6 Thrombocytopenia, unspecified; E78.5 Hyperlipidemia, unspecified; F03.90 Unspecified dementia, unspecified severity, without behavioral disturbance, psychotic disturbance, mood disturbance, and anxiety; E55.9 Vitamin D deficiency, unspecified; E03.9 Hypothyroidism, unspecified; I34.0 Nonrheumatic mitral (valve) insufficiency; R53.1 Weakness; R07.89 Other chest pain; Z79.899 Other long term (current) drug therapy; Z79.890 Hormone replacement therapy; Z88.5 Allergy status to narcotic agent; Z98.61 Coronary angioplasty status

== ENCOUNTER → 2023-09-07 | Outpatient (REF) ==
[~2023-09-07] MED LIST changes: +ACET-907 PO; +BISA10SU27 PR; +CEFD1CAP9 PO; +FERR1TAB8 PO; +FLEEENE12 PR; +MILKSUS3 PO; +MIRT1TAB PO; +OMEP1CAP73 PO; +SUCR1TAB56 PO
[2023-09-07 12:32] LABS: HEMATOCRIT 30.5 % (36.0-47.0); HEMOGLOBIN 9.2 g/dl (12.0-15.5); MEAN CORPUSCULAR HEMOGLOBIN 28.3 pg (27.0-33.0); MEAN CORPUSCULAR HGB CONC 30.2 g/dl (32.0-36.5); MEAN CORPUSCULAR VOLUME 93.8 fl (80.0-96.0); RED BLOOD COUNT 3.25 10^6/uL (4.00-5.40); WHITE BLOOD COUNT 5.9 10^3/uL (4.0-10.0)
[2023-09-07 12:46] LABS: PLATELET COUNT, AUTOMATED 93 10^3/uL (150-450)
== END ==
PROVIDERS: ATTEND Physician Assistant
DX: D64.9 Anemia, unspecified (principal)

== ENCOUNTER → 2023-09-14 | Outpatient (REF) ==
[2023-09-14 12:01] LABS: HEMATOCRIT 29.6 % (36.0-47.0); HEMOGLOBIN 9.2 g/dl (12.0-15.5); MEAN CORPUSCULAR HEMOGLOBIN 28.9 pg (27.0-33.0); MEAN CORPUSCULAR HGB CONC 31.1 g/dl (32.0-36.5); MEAN CORPUSCULAR VOLUME 93.1 fl (80.0-96.0); RED BLOOD COUNT 3.18 10^6/uL (4.00-5.40); WHITE BLOOD COUNT 5.8 10^3/uL (4.0-10.0)
[2023-09-14 12:03] LABS: PLATELET COUNT, AUTOMATED 99 10^3/uL (150-450)
== END ==
PROVIDERS: ATTEND Physician Assistant
DX: D64.9 Anemia, unspecified (principal)

== ENCOUNTER → 2023-09-21 | Outpatient (REF) ==
[2023-09-21 11:23] LABS: HEMATOCRIT 29.6 % (36.0-47.0); HEMOGLOBIN 9.1 g/dl (12.0-15.5); MEAN CORPUSCULAR HEMOGLOBIN 28.7 pg (27.0-33.0); MEAN CORPUSCULAR HGB CONC 30.7 g/dl (32.0-36.5); MEAN CORPUSCULAR VOLUME 93.4 fl (80.0-96.0); PLATELET COUNT, AUTOMATED 102 10^3/uL (150-450); RED BLOOD COUNT 3.17 10^6/uL (4.00-5.40); WHITE BLOOD COUNT 5.9 10^3/uL (4.0-10.0)
== END ==
PROVIDERS: ATTEND Physician Assistant
DX: D64.9 Anemia, unspecified (principal)

== ENCOUNTER → 2023-09-28 | Outpatient (REF) ==
[2023-09-28 15:30] LABS: HEMATOCRIT 27.6 % (36.0-47.0); HEMOGLOBIN 8.5 g/dl (12.0-15.5); MEAN CORPUSCULAR HEMOGLOBIN 28.7 pg (27.0-33.0); MEAN CORPUSCULAR HGB CONC 30.8 g/dl (32.0-36.5); MEAN CORPUSCULAR VOLUME 93.2 fl (80.0-96.0); RED BLOOD COUNT 2.96 10^6/uL (4.00-5.40); WHITE BLOOD COUNT 6.2 10^3/uL (4.0-10.0)
[2023-09-28 15:38] LABS: PLATELET COUNT, AUTOMATED 98 10^3/uL (150-450)
== END ==
PROVIDERS: ATTEND Physician Assistant
DX: D64.9 Anemia, unspecified (principal)

== ENCOUNTER → 2023-10-12 | Outpatient (REF) | payer MEDICARE ==
[2023-10-12 12:20] LABS: HEMATOCRIT 29.6 % (36.0-47.0); MEAN CORPUSCULAR HEMOGLOBIN 28.8 pg (27.0-33.0); MEAN CORPUSCULAR HGB CONC 30.4 g/dl (32.0-36.5); MEAN CORPUSCULAR VOLUME 94.6 fl (80.0-96.0); PLATELET COUNT, AUTOMATED 132 10^3/uL (150-450); RED BLOOD COUNT 3.13 10^6/uL (4.00-5.40); WHITE BLOOD COUNT 8.4 10^3/uL (4.0-10.0)
[2023-10-12 12:56] LABS: CALCIUM LEVEL 8.8 MG/DL (8.3-10.6); CREATININE FOR GFR 1.65 MG/DL (0.55-1.30); GLOMERULAR FILTRATION RATE 31.3 (>32)
== END ==
PROVIDERS: ATTEND Internal Medicine
DX: J44.9 Chronic obstructive pulmonary disease, unspecified (principal)

== ENCOUNTER → 2023-10-13 | Outpatient (CLI) | payer MEDICARE | LOC: M SOG 07:57 | PROVIDERS: ATTEND Orthopaedic Surgery | DX: M16.0 Bilateral primary osteoarthritis of hip (principal); S72.141D Displaced intertrochanteric fracture of right femur, subsequent encounter for closed fracture with routine healing; M17.11 Unilateral primary osteoarthritis, right knee; W18.30XA Fall on same level, unspecified, initial encounter; Y92.009 Unspecified place in unspecified non-institutional (private) residence as the place of occurrence of the external cause ==

== ENCOUNTER → 2023-11-16 | Outpatient (REF) | payer MEDICARE ==
[2023-11-16 11:14] LABS: HEMATOCRIT 27.8 % (36.0-47.0); HEMOGLOBIN 8.7 g/dl (12.0-15.5); MEAN CORPUSCULAR HEMOGLOBIN 29.8 pg (27.0-33.0); MEAN CORPUSCULAR HGB CONC 31.3 g/dl (32.0-36.5); MEAN CORPUSCULAR VOLUME 95.2 fl (80.0-96.0); PLATELET COUNT, AUTOMATED 101 10^3/uL (150-450); RED BLOOD COUNT 2.92 10^6/uL (4.00-5.40); WHITE BLOOD COUNT 7.5 10^3/uL (4.0-10.0)
== END ==
PROVIDERS: ATTEND Internal Medicine
DX: D64.9 Anemia, unspecified (principal)

== ENCOUNTER → 2023-11-18 | Outpatient (REF) | payer MEDICARE ==
[2023-11-18 10:31] LABS: HEMATOCRIT 27.2 % (36.0-47.0); HEMOGLOBIN 8.3 g/dl (12.0-15.5); MEAN CORPUSCULAR HEMOGLOBIN 29.1 pg (27.0-33.0); MEAN CORPUSCULAR HGB CONC 30.5 g/dl (32.0-36.5); MEAN CORPUSCULAR VOLUME 95.4 fl (80.0-96.0); RED BLOOD COUNT 2.85 10^6/uL (4.00-5.40); WHITE BLOOD COUNT 5.7 10^3/uL (4.0-10.0)
[2023-11-18 10:33] LABS: PLATELET COUNT, AUTOMATED 94 10^3/uL (150-450)
[2023-11-18 10:57] LABS: FERRITIN 22.4 NG/ML (7.3-270.7)
[2023-11-18 10:59] LABS: IRON (FE) 124 UG/DL (50-170); TOTAL IRON BINDING CAPACITY 335 UG/DL (250-425)
[2023-11-18 11:01] LABS: FOLATE > 24.00 NG/ML (>5.4)
[2023-11-18 11:02] LABS: VITAMIN B12 LEVEL 648 PG/ML (211-911)
== END ==
PROVIDERS: ATTEND Physician Assistant
DX: D64.9 Anemia, unspecified (principal)

== ENCOUNTER → 2023-11-23 | Outpatient (REF) | payer MEDICARE ==
[2023-11-23 12:33] LABS: HEMATOCRIT 27.4 % (36.0-47.0); HEMOGLOBIN 8.5 g/dl (12.0-15.5); MEAN CORPUSCULAR HEMOGLOBIN 29.5 pg (27.0-33.0); MEAN CORPUSCULAR VOLUME 95.1 fl (80.0-96.0); PLATELET COUNT, AUTOMATED 108 10^3/uL (150-450); RED BLOOD COUNT 2.88 10^6/uL (4.00-5.40); WHITE BLOOD COUNT 6.9 10^3/uL (4.0-10.0)
== END ==
PROVIDERS: ATTEND Physician Assistant
DX: D64.9 Anemia, unspecified (principal)

== ENCOUNTER → 2023-12-04 | Outpatient (REF) | payer MEDICARE ==
[2023-12-04 15:44] LABS: HEMATOCRIT 25.2 % (36.0-47.0); HEMOGLOBIN 7.7 g/dl (12.0-15.5); MEAN CORPUSCULAR HEMOGLOBIN 29.3 pg (27.0-33.0); MEAN CORPUSCULAR HGB CONC 30.6 g/dl (32.0-36.5); MEAN CORPUSCULAR VOLUME 95.8 fl (80.0-96.0); RED BLOOD COUNT 2.63 10^6/uL (4.00-5.40); WHITE BLOOD COUNT 5.9 10^3/uL (4.0-10.0)
[2023-12-04 15:46] LABS: PLATELET COUNT, AUTOMATED 88 10^3/uL (150-450)
[2023-12-04 16:13] LABS: CALCIUM LEVEL 8.7 MG/DL (8.3-10.6); CREATININE FOR GFR 1.49 MG/DL (0.55-1.30); GLOMERULAR FILTRATION RATE 35.1 (>32); POTASSIUM SERUM 5.3 MMOL/L (3.5-5.1)
== END ==
PROVIDERS: ATTEND Physician Assistant
DX: D64.9 Anemia, unspecified (principal)

== ENCOUNTER → 2023-12-07 | Outpatient (REF) | payer MEDICARE ==
[2023-12-07 08:39] LABS: HEMATOCRIT 26.4 % (36.0-47.0); HEMOGLOBIN 8.3 g/dl (12.0-15.5); MEAN CORPUSCULAR HEMOGLOBIN 29.7 pg (27.0-33.0); MEAN CORPUSCULAR HGB CONC 31.4 g/dl (32.0-36.5); MEAN CORPUSCULAR VOLUME 94.6 fl (80.0-96.0); RED BLOOD COUNT 2.79 10^6/uL (4.00-5.40)
[2023-12-07 08:40] LABS: PLATELET COUNT, AUTOMATED 98 10^3/uL (150-450)
[2023-12-07 09:12] LABS: CREATININE FOR GFR 1.48 MG/DL (0.55-1.30); GLOMERULAR FILTRATION RATE 35.4 (>32)
== END ==
PROVIDERS: ATTEND Physician Assistant
DX: D64.9 Anemia, unspecified (principal)

== ENCOUNTER → 2023-12-14 | Outpatient (REF) | payer MEDICARE ==
[2023-12-14 09:37] LABS: HEMATOCRIT 23.8 % (36.0-47.0); HEMOGLOBIN 7.4 g/dl (12.0-15.5); MEAN CORPUSCULAR HEMOGLOBIN 30.1 pg (27.0-33.0); MEAN CORPUSCULAR HGB CONC 31.1 g/dl (32.0-36.5); MEAN CORPUSCULAR VOLUME 96.7 fl (80.0-96.0); RED BLOOD COUNT 2.46 10^6/uL (4.00-5.40)
[2023-12-14 09:48] LABS: PLATELET COUNT, AUTOMATED 96 10^3/uL (150-450)
== END ==
PROVIDERS: ATTEND Internal Medicine
DX: D64.9 Anemia, unspecified (principal)

== ENCOUNTER → 2023-12-16 | Outpatient (REF) | payer MEDICARE ==
[2023-12-16 10:48] LABS: HEMATOCRIT 25.8 % (36.0-47.0); HEMOGLOBIN 7.8 g/dl (12.0-15.5); MEAN CORPUSCULAR HEMOGLOBIN 29.2 pg (27.0-33.0); MEAN CORPUSCULAR HGB CONC 30.2 g/dl (32.0-36.5); MEAN CORPUSCULAR VOLUME 96.6 fl (80.0-96.0); PLATELET COUNT, AUTOMATED 102 10^3/uL (150-450); RED BLOOD COUNT 2.67 10^6/uL (4.00-5.40); WHITE BLOOD COUNT 5.1 10^3/uL (4.0-10.0)
[2023-12-16 11:20] LABS: ALBUMIN 3.8 G/DL (3.2-5.2); BILIRUBIN,TOTAL 0.3 MG/DL (0.3-1.2); CALCIUM LEVEL 8.9 MG/DL (8.3-10.6); CREATININE FOR GFR 1.52 MG/DL (0.55-1.30); GLOMERULAR FILTRATION RATE 34.3 (>32); PERCENT SATURATION 7.7 % (13.2-45.0); POTASSIUM SERUM 4.7 MMOL/L (3.5-5.1); TOTAL PROTEIN 6.8 G/DL (5.7-8.2)
[2023-12-16 11:22] LABS: FERRITIN 22.1 NG/ML (7.3-270.7)
== END ==
PROVIDERS: ATTEND Physician Assistant
DX: D64.9 Anemia, unspecified (principal)

== ENCOUNTER → 2023-12-17 | Outpatient (CLI) | payer MEDICARE ==
[~2023-12-17] VITALS: Ht 154.9 cm; Wt 56.0 kg
[2023-12-17] VITALS (8 sets, daily range): BP systolic 108–153; BP diastolic 59–88; TEMP 96.8–98.4; O2SAT 95–98
[2023-12-17] MEDS: diphenhydrAMINE 25MG CAP PO ONE (09:41)
[2023-12-17] MEDS: ACETAMINOPHEN 650MG PO PRIOR TO INFUSION PO ONE (09:56)
== END ==
LOC: M INFU 09:20
PROVIDERS: ATTEND Internal Medicine
DX: D64.9 Anemia, unspecified (principal); Z88.5 Allergy status to narcotic agent
CPT/HCPCS: 36430; P9016

== ENCOUNTER → 2023-12-23 | Outpatient (REF) | payer MEDICARE ==
[2023-12-23 13:02] LABS: HEMOGLOBIN 10.2 g/dl (12.0-15.5); MEAN CORPUSCULAR HEMOGLOBIN 29.5 pg (27.0-33.0); MEAN CORPUSCULAR HGB CONC 30.9 g/dl (32.0-36.5); MEAN CORPUSCULAR VOLUME 95.4 fl (80.0-96.0); RED BLOOD COUNT 3.46 10^6/uL (4.00-5.40); WHITE BLOOD COUNT 6.5 10^3/uL (4.0-10.0)
[2023-12-23 13:34] LABS: PLATELET COUNT, AUTOMATED 96 10^3/uL (150-450)
== END ==
PROVIDERS: ATTEND Physician Assistant
DX: D64.9 Anemia, unspecified (principal)

== ENCOUNTER → 2023-12-28 | Outpatient (REF) | payer MEDICARE ==
[~2023-12-28] MED LIST changes: -SENN-111 PO; +SENN-165 PO
[2023-12-28 08:44] LABS: HEMATOCRIT 32.1 % (36.0-47.0); HEMOGLOBIN 9.8 g/dl (12.0-15.5); MEAN CORPUSCULAR HEMOGLOBIN 29.4 pg (27.0-33.0); MEAN CORPUSCULAR HGB CONC 30.5 g/dl (32.0-36.5); MEAN CORPUSCULAR VOLUME 96.4 fl (80.0-96.0); RED BLOOD COUNT 3.33 10^6/uL (4.00-5.40); WHITE BLOOD COUNT 6.5 10^3/uL (4.0-10.0)
[2023-12-28 09:01] LABS: PLATELET COUNT, AUTOMATED 90 10^3/uL (150-450)
== END ==
PROVIDERS: ATTEND Physician Assistant
DX: D64.9 Anemia, unspecified (principal)

== ENCOUNTER → 2023-12-29 | Outpatient (REF) | payer MEDICARE ==
[~2023-12-29] MED LIST changes: +SENN-111 PO; -SENN-165 PO
[2023-12-29 14:14] LABS: BASO % 0.2 % (0.0-1.0); HEMOGLOBIN 9.6 g/dl (12.0-15.5); LYMPH # 0.5 10^3/uL (1.5-5.0); LYMPH % 7.2 % (24.0-44.0); MEAN CORPUSCULAR HEMOGLOBIN 29.6 pg (27.0-33.0); MEAN CORPUSCULAR VOLUME 95.7 fl (80.0-96.0); MONO # 0.7 10^3/uL (0.0-0.8); MONO % 10.2 % (2.0-8.0); NEUTROPHILS # 5.2 10^3/uL (1.5-8.5); NEUTROPHILS % 81.8 % (36.0-66.0); PLATELET COUNT, AUTOMATED 101 10^3/uL (150-450); RED BLOOD COUNT 3.24 10^6/uL (4.00-5.40); WHITE BLOOD COUNT 6.4 10^3/uL (4.0-10.0)
[2023-12-29 14:40] LABS: CREATININE FOR GFR 1.48 MG/DL (0.55-1.30); GLOMERULAR FILTRATION RATE 35.4 (>32)
== END ==
PROVIDERS: ATTEND Physician Assistant
DX: R05.9 Cough, unspecified (principal); Z79.899 Other long term (current) drug therapy

== ENCOUNTER → 2023-12-29 | Outpatient (REF) | payer MEDICARE | PROVIDERS: ATTEND Nurse Practitioner Adult Health | DX: R05.9 Cough, unspecified (principal); I51.7 Cardiomegaly; I70.0 Atherosclerosis of aorta; Z95.0 Presence of cardiac pacemaker ==

== ENCOUNTER → 2024-01-04 | Outpatient (REF) | payer MEDICARE ==
[~2024-01-04] MED LIST changes: -SENN-111 PO; +SENN-165 PO
[2024-01-04 10:03] LABS: HEMATOCRIT 31.6 % (36.0-47.0); HEMOGLOBIN 9.7 g/dl (12.0-15.5); MEAN CORPUSCULAR HEMOGLOBIN 29.5 pg (27.0-33.0); MEAN CORPUSCULAR HGB CONC 30.7 g/dl (32.0-36.5); RED BLOOD COUNT 3.29 10^6/uL (4.00-5.40); WHITE BLOOD COUNT 7.1 10^3/uL (4.0-10.0)
[2024-01-04 10:10] LABS: PLATELET COUNT, AUTOMATED 99 10^3/uL (150-450)
== END ==
PROVIDERS: ATTEND Physician Assistant
DX: D64.9 Anemia, unspecified (principal)

== ENCOUNTER → 2024-01-18 | Outpatient (REF) | payer MEDICARE ==
[2024-01-18 10:14] LABS: HEMATOCRIT 30.6 % (36.0-47.0); HEMOGLOBIN 9.4 g/dl (12.0-15.5); MEAN CORPUSCULAR HEMOGLOBIN 29.8 pg (27.0-33.0); MEAN CORPUSCULAR HGB CONC 30.7 g/dl (32.0-36.5); MEAN CORPUSCULAR VOLUME 97.1 fl (80.0-96.0); RED BLOOD COUNT 3.15 10^6/uL (4.00-5.40); WHITE BLOOD COUNT 6.6 10^3/uL (4.0-10.0)
[2024-01-18 10:20] LABS: PLATELET COUNT, AUTOMATED 97 10^3/uL (150-450)
== END ==
PROVIDERS: ATTEND Physician Assistant
DX: D64.9 Anemia, unspecified (principal)

== ENCOUNTER → 2024-02-01 | Outpatient (REF) | payer MEDICARE ==
[2024-02-01 11:08] LABS: HEMATOCRIT 27.3 % (36.0-47.0); HEMOGLOBIN 8.3 g/dl (12.0-15.5); MEAN CORPUSCULAR HGB CONC 30.4 g/dl (32.0-36.5); MEAN CORPUSCULAR VOLUME 95.5 fl (80.0-96.0); PLATELET COUNT, AUTOMATED 106 10^3/uL (150-450); RED BLOOD COUNT 2.86 10^6/uL (4.00-5.40); WHITE BLOOD COUNT 5.3 10^3/uL (4.0-10.0)
[2024-02-01 11:33] LABS: CALCIUM LEVEL 9.2 MG/DL (8.3-10.6); CREATININE FOR GFR 1.52 MG/DL (0.55-1.30); GLOMERULAR FILTRATION RATE 34.3 (>32); POTASSIUM SERUM 4.7 MMOL/L (3.5-5.1)
== END ==
PROVIDERS: ATTEND Physician Assistant
DX: D64.9 Anemia, unspecified (principal)

== ENCOUNTER → 2024-02-02 | Outpatient (REF) | payer MEDICARE ==
[2024-02-02 11:13] LABS: HEMATOCRIT 27.7 % (36.0-47.0); HEMOGLOBIN 8.5 g/dl (12.0-15.5); MEAN CORPUSCULAR HEMOGLOBIN 29.3 pg (27.0-33.0); MEAN CORPUSCULAR HGB CONC 30.7 g/dl (32.0-36.5); MEAN CORPUSCULAR VOLUME 95.5 fl (80.0-96.0); PLATELET COUNT, AUTOMATED 114 10^3/uL (150-450)
== END ==
PROVIDERS: ATTEND Internal Medicine
DX: D64.9 Anemia, unspecified (principal)

== ENCOUNTER → 2024-02-05 | Outpatient (REF) | payer MEDICARE ==
[2024-02-05 08:51] LABS: HEMATOCRIT 29.1 % (36.0-47.0); HEMOGLOBIN 9.1 g/dl (12.0-15.5); MEAN CORPUSCULAR HEMOGLOBIN 29.7 pg (27.0-33.0); MEAN CORPUSCULAR HGB CONC 31.3 g/dl (32.0-36.5); MEAN CORPUSCULAR VOLUME 95.1 fl (80.0-96.0); PLATELET COUNT, AUTOMATED 105 10^3/uL (150-450); RED BLOOD COUNT 3.06 10^6/uL (4.00-5.40); WHITE BLOOD COUNT 6.2 10^3/uL (4.0-10.0)
== END ==
PROVIDERS: ATTEND Internal Medicine
DX: D64.9 Anemia, unspecified (principal)

== ENCOUNTER → 2024-02-15 | Outpatient (REF) | payer MEDICARE ==
[2024-02-15 13:13] LABS: BASO % 0.2 % (0.0-1.0); EOS % 0.2 % (0.0-3.0); HEMATOCRIT 29.8 % (36.0-47.0); HEMATOCRIT 30.2 % (36.0-47.0); HEMOGLOBIN 9.1 g/dl (12.0-15.5); HEMOGLOBIN 9.2 g/dl (12.0-15.5); LYMPH # 0.4 10^3/uL (1.5-5.0); LYMPH % 6.7 % (24.0-44.0); MEAN CORPUSCULAR HEMOGLOBIN 28.9 pg (27.0-33.0); MEAN CORPUSCULAR HEMOGLOBIN 29.9 pg (27.0-33.0); MEAN CORPUSCULAR HGB CONC 30.1 g/dl (32.0-36.5); MEAN CORPUSCULAR HGB CONC 30.9 g/dl (32.0-36.5); MEAN CORPUSCULAR VOLUME 95.9 fl (80.0-96.0); MEAN CORPUSCULAR VOLUME 96.8 fl (80.0-96.0); MONO # 0.7 10^3/uL (0.0-0.8); MONO % 10.6 % (2.0-8.0); NEUTROPHILS # 5.2 10^3/uL (1.5-8.5); NEUTROPHILS % 81.8 % (36.0-66.0); PLATELET COUNT, AUTOMATED 106 10^3/uL (150-450); PLATELET COUNT, AUTOMATED 114 10^3/uL (150-450); RED BLOOD COUNT 3.08 10^6/uL (4.00-5.40); RED BLOOD COUNT 3.15 10^6/uL (4.00-5.40); WHITE BLOOD COUNT 6.4 10^3/uL (4.0-10.0)
[2024-02-15 13:39] LABS: CALCIUM LEVEL 9.4 MG/DL (8.3-10.6); CREATININE FOR GFR 1.48 MG/DL (0.55-1.30); DIGOXIN LEVEL 1.4 NG/ML (0.8-2.0); GLOMERULAR FILTRATION RATE 35.4 (>32); POTASSIUM SERUM 5.2 MMOL/L (3.5-5.1); THYROXINE (T4) 7.4 UG/DL (4.5-10.9)
[2024-02-15 13:40] LABS: ALBUMIN 3.8 G/DL (3.2-5.2); BILIRUBIN,TOTAL 0.3 MG/DL (0.3-1.2); CALCIUM LEVEL 9.3 MG/DL (8.3-10.6); CREATININE FOR GFR 1.51 MG/DL (0.55-1.30); GLOMERULAR FILTRATION RATE 34.5 (>32); POTASSIUM SERUM 5.3 MMOL/L (3.5-5.1); THYROID STIMULATING HORMONE 12.927 uIU/ML (0.55-4.78)
== END ==
PROVIDERS: ATTEND Physician Assistant
DX: D64.9 Anemia, unspecified (principal); Z79.899 Other long term (current) drug therapy

== ENCOUNTER → 2024-03-14 | Outpatient (REF) | payer MEDICARE ==
[2024-03-14 10:40] LABS: HEMOGLOBIN 7.7 g/dl (12.0-15.5); MEAN CORPUSCULAR HEMOGLOBIN 29.6 pg (27.0-33.0); MEAN CORPUSCULAR HGB CONC 30.8 g/dl (32.0-36.5); MEAN CORPUSCULAR VOLUME 96.2 fl (80.0-96.0); PLATELET COUNT, AUTOMATED 111 10^3/uL (150-450); WHITE BLOOD COUNT 4.7 10^3/uL (4.0-10.0)
== END ==
PROVIDERS: ATTEND Internal Medicine
DX: D64.9 Anemia, unspecified (principal); E03.9 Hypothyroidism, unspecified

== ENCOUNTER → 2024-03-16 | Outpatient (REF) | payer MEDICARE ==
[2024-03-16 09:42] LABS: HEMATOCRIT 24.1 % (36.0-47.0); HEMOGLOBIN 7.4 g/dl (12.0-15.5); MEAN CORPUSCULAR HGB CONC 30.7 g/dl (32.0-36.5); MEAN CORPUSCULAR VOLUME 94.5 fl (80.0-96.0); PLATELET COUNT, AUTOMATED 104 10^3/uL (150-450); RED BLOOD COUNT 2.55 10^6/uL (4.00-5.40); WHITE BLOOD COUNT 5.2 10^3/uL (4.0-10.0)
== END ==
PROVIDERS: ATTEND Physician Assistant
DX: D64.9 Anemia, unspecified (principal)

== ENCOUNTER → 2024-03-17 | Outpatient (REF) | payer MEDICARE | PROVIDERS: ATTEND Physician Assistant | DX: D64.9 Anemia, unspecified (principal) ==

== ENCOUNTER 2024-03-18 06:50 | Outpatient (CLI) | payer MEDICARE ==
[~2024-03-18] VITALS: Ht 149.9 cm; Wt 56.8 kg
[2024-03-18 06:50] VITALS: BP 163/74; O2SAT 97
[2024-03-18] MEDS: ACETAMINOPHEN 650 MG PO ONE (06:58)
[2024-03-18] MEDS: diphenhydrAMINE 25MG CAP PO ONE (06:58)
[2024-03-18 08:04] VITALS: BP 123/62; TEMP 98; O2SAT 97
[2024-03-18 09:00] VITALS: BP 149/68; TEMP 97; O2SAT 97
[2024-03-18] MEDS: FUROSEMIDE 20 MG TAB PO ONE (09:27)
[2024-03-18 10:00] VITALS: BP 135/68; TEMP 98; O2SAT 97
[2024-03-18 11:00] VITALS: BP 152/87; TEMP 98.3; O2SAT 97
[2024-03-18 11:30] VITALS: BP 154/94; O2SAT 97
== END 2024-03-18 11:30 ==
LOC: M INFU 06:50
PROVIDERS: ATTEND Physician Assistant
DX: D64.9 Anemia, unspecified (principal); Z88.5 Allergy status to narcotic agent
CPT/HCPCS: 36430; P9016

== ENCOUNTER → 2024-03-19 | Outpatient (REF) | payer MEDICARE ==
[2024-03-19 14:37] LABS: HEMATOCRIT 31.9 % (36.0-47.0); MEAN CORPUSCULAR HEMOGLOBIN 29.2 pg (27.0-33.0); MEAN CORPUSCULAR HGB CONC 31.3 g/dl (32.0-36.5); PLATELET COUNT, AUTOMATED 110 10^3/uL (150-450); RED BLOOD COUNT 3.43 10^6/uL (4.00-5.40); WHITE BLOOD COUNT 5.2 10^3/uL (4.0-10.0)
== END ==
PROVIDERS: ATTEND Physician Assistant
DX: D64.9 Anemia, unspecified (principal)

== ENCOUNTER → 2024-04-11 | Outpatient (REF) | payer MEDICARE | PROVIDERS: ATTEND Physician Assistant | DX: E03.9 Hypothyroidism, unspecified (principal) ==

== ENCOUNTER → 2024-04-18 | Outpatient (REF) | payer MEDICARE ==
[2024-04-18 12:04] LABS: HEMATOCRIT 35.1 % (36.0-47.0); HEMOGLOBIN 10.7 g/dl (12.0-15.5); MEAN CORPUSCULAR HEMOGLOBIN 28.1 pg (27.0-33.0); MEAN CORPUSCULAR HGB CONC 30.5 g/dl (32.0-36.5); MEAN CORPUSCULAR VOLUME 92.1 fl (80.0-96.0); PLATELET COUNT, AUTOMATED 104 10^3/uL (150-450); RED BLOOD COUNT 3.81 10^6/uL (4.00-5.40); WHITE BLOOD COUNT 5.7 10^3/uL (4.0-10.0)
== END ==
PROVIDERS: ATTEND Physician Assistant
DX: D64.9 Anemia, unspecified (principal)

== ENCOUNTER → 2024-04-20 | Outpatient (REF) | payer MEDICARE ==
[2024-04-20 15:50] LABS: HEMATOCRIT 34.6 % (36.0-47.0); HEMOGLOBIN 10.8 g/dl (12.0-15.5); MEAN CORPUSCULAR HGB CONC 31.2 g/dl (32.0-36.5); MEAN CORPUSCULAR VOLUME 92.8 fl (80.0-96.0); RED BLOOD COUNT 3.73 10^6/uL (4.00-5.40); WHITE BLOOD COUNT 5.9 10^3/uL (4.0-10.0)
[2024-04-20 16:08] LABS: CALCIUM LEVEL 8.7 MG/DL (8.3-10.6); CREATININE FOR GFR 1.68 MG/DL (0.55-1.30); GLOMERULAR FILTRATION RATE 30.5 (>32); POTASSIUM SERUM 4.8 MMOL/L (3.5-5.1)
[2024-04-20 16:12] LABS: PLATELET COUNT, AUTOMATED 96 10^3/uL (150-450)
== END ==
PROVIDERS: ATTEND Physician Assistant
DX: D64.9 Anemia, unspecified (principal)

== ENCOUNTER → 2024-05-16 | Outpatient (REF) | payer MEDICARE | PROVIDERS: ATTEND Physician Assistant | DX: M25.421 Effusion, right elbow (principal) ==

== ENCOUNTER → 2024-05-16 | Outpatient (REF) | payer MEDICARE ==
[2024-05-16 09:49] LABS: HEMATOCRIT 29.6 % (36.0-47.0); HEMOGLOBIN 9.2 g/dl (12.0-15.5); MEAN CORPUSCULAR HEMOGLOBIN 28.3 pg (27.0-33.0); MEAN CORPUSCULAR HGB CONC 31.1 g/dl (32.0-36.5); MEAN CORPUSCULAR VOLUME 91.1 fl (80.0-96.0); RED BLOOD COUNT 3.25 10^6/uL (4.00-5.40); WHITE BLOOD COUNT 6.9 10^3/uL (4.0-10.0)
[2024-05-16 09:53] LABS: PLATELET COUNT, AUTOMATED 88 10^3/uL (150-450)
== END ==
PROVIDERS: ATTEND Internal Medicine
DX: D64.9 Anemia, unspecified (principal); M25.421 Effusion, right elbow

== ENCOUNTER → 2024-05-17 | Outpatient (REF) | payer MEDICARE ==
[2024-05-17 14:37] LABS: EOS % 0.3 % (0.0-3.0); HEMATOCRIT 30.7 % (36.0-47.0); HEMOGLOBIN 9.5 g/dl (12.0-15.5); LYMPH # 0.3 10^3/uL (1.5-5.0); LYMPH % 5.2 % (24.0-44.0); MEAN CORPUSCULAR HEMOGLOBIN 28.1 pg (27.0-33.0); MEAN CORPUSCULAR HGB CONC 30.9 g/dl (32.0-36.5); MEAN CORPUSCULAR VOLUME 90.8 fl (80.0-96.0); MONO # 0.5 10^3/uL (0.0-0.8); MONO % 7.7 % (2.0-8.0); NEUTROPHILS # 5.6 10^3/uL (1.5-8.5); NEUTROPHILS % 86.5 % (36.0-66.0); PLATELET COUNT, AUTOMATED 99 10^3/uL (150-450); RED BLOOD COUNT 3.38 10^6/uL (4.00-5.40); WHITE BLOOD COUNT 6.5 10^3/uL (4.0-10.0)
[2024-05-17 14:41] LABS: ERYTHROCYTE SEDIMENTATION RATE 35 mm/hr (0-30)
[2024-05-17 15:07] LABS: URIC ACID 8.6 MG/DL (3.1-7.8)
[2024-05-17 15:10] LABS: C REACTIVE PROTEIN QUANTITATIV 4.08 MG/DL (<1.0); CALCIUM LEVEL 8.7 MG/DL (8.3-10.6); CREATININE FOR GFR 1.49 MG/DL (0.55-1.30); GLOMERULAR FILTRATION RATE 35.1 (>32); POTASSIUM SERUM 4.9 MMOL/L (3.5-5.1)
== END ==
PROVIDERS: ATTEND Physician Assistant
DX: D64.9 Anemia, unspecified (principal)

== ENCOUNTER → 2024-05-23 | Outpatient (REF) | payer MEDICARE ==
[2024-05-23 09:29] LABS: HEMATOCRIT 33.7 % (36.0-47.0); HEMOGLOBIN 10.4 g/dl (12.0-15.5); MEAN CORPUSCULAR HEMOGLOBIN 28.3 pg (27.0-33.0); MEAN CORPUSCULAR HGB CONC 30.9 g/dl (32.0-36.5); MEAN CORPUSCULAR VOLUME 91.6 fl (80.0-96.0); PLATELET COUNT, AUTOMATED 105 10^3/uL (150-450); RED BLOOD COUNT 3.68 10^6/uL (4.00-5.40); WHITE BLOOD COUNT 7.1 10^3/uL (4.0-10.0)
== END ==
PROVIDERS: ATTEND Physician Assistant
DX: D64.9 Anemia, unspecified (principal)

== ENCOUNTER → 2024-05-25 | Outpatient (REF) | payer MEDICARE ==
[2024-05-25 09:52] LABS: HEMATOCRIT 34.8 % (36.0-47.0); HEMOGLOBIN 10.7 g/dl (12.0-15.5); MEAN CORPUSCULAR HEMOGLOBIN 28.4 pg (27.0-33.0); MEAN CORPUSCULAR HGB CONC 30.7 g/dl (32.0-36.5); MEAN CORPUSCULAR VOLUME 92.3 fl (80.0-96.0); RED BLOOD COUNT 3.77 10^6/uL (4.00-5.40); WHITE BLOOD COUNT 6.3 10^3/uL (4.0-10.0)
[2024-05-25 09:56] LABS: PLATELET COUNT, AUTOMATED 90 10^3/uL (150-450)
[2024-05-25 10:06] LABS: ERYTHROCYTE SEDIMENTATION RATE 21 mm/hr (0-30)
[2024-05-25 10:29] LABS: URIC ACID 5.6 MG/DL (3.1-7.8)
[2024-05-25 10:32] LABS: C REACTIVE PROTEIN QUANTITATIV 0.5 MG/DL (<1.0)
[2024-05-25 10:37] LABS: THYROID STIMULATING HORMONE 5.76 uIU/ML (0.55-4.78)
== END ==
PROVIDERS: ATTEND Physician Assistant
DX: E03.9 Hypothyroidism, unspecified (principal)

== ENCOUNTER → 2024-06-13 | Outpatient (REF) | payer MEDICARE ==
[~2024-06-13] MED LIST changes: +DOXY-442 PO; -DOXY100C82 PO
[2024-06-13 08:59] LABS: HEMATOCRIT 32.1 % (36.0-47.0); HEMOGLOBIN 10.1 g/dl (12.0-15.5); MEAN CORPUSCULAR HEMOGLOBIN 29.1 pg (27.0-33.0); MEAN CORPUSCULAR HGB CONC 31.5 g/dl (32.0-36.5); MEAN CORPUSCULAR VOLUME 92.5 fl (80.0-96.0); RED BLOOD COUNT 3.47 10^6/uL (4.00-5.40); WHITE BLOOD COUNT 3.9 10^3/uL (4.0-10.0)
[2024-06-13 09:00] LABS: PLATELET COUNT, AUTOMATED 90 10^3/uL (150-450)
[2024-06-13 09:24] LABS: CALCIUM LEVEL 8.7 MG/DL (8.3-10.6); CREATININE FOR GFR 1.46 MG/DL (0.55-1.30); DIGOXIN LEVEL 0.7 NG/ML (0.8-2.0); GLOMERULAR FILTRATION RATE 35.9 (>32); POTASSIUM SERUM 4.9 MMOL/L (3.5-5.1)
== END ==
PROVIDERS: ATTEND Internal Medicine
DX: D64.9 Anemia, unspecified (principal); Z79.899 Other long term (current) drug therapy

== ENCOUNTER → 2024-07-06 | Outpatient (REF) | payer MEDICARE | PROVIDERS: ATTEND Physician Assistant | DX: E03.9 Hypothyroidism, unspecified (principal) ==

== ENCOUNTER → 2024-07-07 | Outpatient (REF) | payer MEDICARE | PROVIDERS: ATTEND Internal Medicine | DX: E07.9 Disorder of thyroid, unspecified (principal) ==

== ENCOUNTER → 2024-07-20 | Outpatient (REF) | payer MEDICARE ==
[2024-07-20 08:37] LABS: HEMATOCRIT 32.5 % (36.0-47.0); HEMOGLOBIN 10.1 g/dl (12.0-15.5); MEAN CORPUSCULAR HEMOGLOBIN 29.1 pg (27.0-33.0); MEAN CORPUSCULAR HGB CONC 31.1 g/dl (32.0-36.5); MEAN CORPUSCULAR VOLUME 93.7 fl (80.0-96.0); RED BLOOD COUNT 3.47 10^6/uL (4.00-5.40); WHITE BLOOD COUNT 4.5 10^3/uL (4.0-10.0)
[2024-07-20 08:42] LABS: PLATELET COUNT, AUTOMATED 91 10^3/uL (150-450)
== END ==
PROVIDERS: ATTEND Internal Medicine
DX: D64.9 Anemia, unspecified (principal)

== ENCOUNTER → 2024-08-15 | Outpatient (REF) | payer MEDICARE ==
[2024-08-15 08:40] LABS: HEMATOCRIT 33.6 % (36.0-47.0); HEMOGLOBIN 10.7 g/dl (12.0-15.5); MEAN CORPUSCULAR HEMOGLOBIN 30.4 pg (27.0-33.0); MEAN CORPUSCULAR HGB CONC 31.8 g/dl (32.0-36.5); MEAN CORPUSCULAR VOLUME 95.5 fl (80.0-96.0); RED BLOOD COUNT 3.52 10^6/uL (4.00-5.40)
[2024-08-15 08:43] LABS: PLATELET COUNT, AUTOMATED 84 10^3/uL (150-450)
[2024-08-15 08:59] LABS: CREATININE FOR GFR 1.32 MG/DL (0.55-1.30); GLOMERULAR FILTRATION RATE 38.6 (>32); POTASSIUM SERUM 4.7 MMOL/L (3.5-5.1)
== END ==
PROVIDERS: ATTEND Internal Medicine
DX: D64.9 Anemia, unspecified (principal)

== ENCOUNTER → 2024-08-16 | Outpatient (REF) | payer MEDICARE | PROVIDERS: ATTEND Physician Assistant | DX: N18.9 Chronic kidney disease, unspecified (principal); Z53.8 Procedure and treatment not carried out for other reasons ==

== ENCOUNTER → 2024-10-11 | Outpatient (REF) | payer MEDICARE ==
[2024-10-11 15:13] LABS: PLATELET COUNT, AUTOMATED 80 10^3/uL (150-450)
[2024-10-11 15:30] LABS: CALCIUM LEVEL 9.0 MG/DL (8.3-10.6); CARBON DIOXIDE LEVEL 28.0 MMOL/L (20-31); CHLORIDE LEVEL 104.0 MMOL/L (98-107); CREATININE FOR GFR 1.34 MG/DL (0.55-1.30); GLOMERULAR FILTRATION RATE 37.9 (>32); POTASSIUM SERUM 5.3 MMOL/L (3.5-5.1); SODIUM LEVEL 143.0 MMOL/L (136-145)
== END ==
PROVIDERS: ATTEND Physician Assistant
DX: R05.9 Cough, unspecified (principal); Z79.899 Other long term (current) drug therapy

== ENCOUNTER → 2024-10-11 | Outpatient (REF) | payer MEDICARE | PROVIDERS: ATTEND Physician Assistant | DX: R05.9 Cough, unspecified (principal); I51.7 Cardiomegaly; Z95.828 Presence of other vascular implants and grafts ==

== ENCOUNTER → 2024-10-17 | Outpatient (REF) | payer MEDICARE ==
[2024-10-17 10:29] LABS: PLATELET COUNT, AUTOMATED 87 10^3/uL (150-450)
[2024-10-17 10:45] LABS: CALCIUM LEVEL 9.2 MG/DL (8.3-10.6); CARBON DIOXIDE LEVEL 26.0 MMOL/L (20-31); CHLORIDE LEVEL 103.0 MMOL/L (98-107); CREATININE FOR GFR 1.37 MG/DL (0.55-1.30); DIGOXIN LEVEL 1.8 NG/ML (0.8-2.0); GLOMERULAR FILTRATION RATE 36.9 (>32); POTASSIUM SERUM 5.0 MMOL/L (3.5-5.1); SODIUM LEVEL 143.0 MMOL/L (136-145)
== END ==
PROVIDERS: ATTEND Internal Medicine
DX: D64.9 Anemia, unspecified (principal); Z79.899 Other long term (current) drug therapy